=== PATIENT | male | born 1965 | race Caucasian/White ===

== ENCOUNTER 2023-04-16 11:56 | Inpatient (IN) ==
[2023-04-16 12:44] LABS: Basophils # (auto) 0.03 K/uL (0-0.2); Basophils % (auto) 0.4 %; Eosinophils # (auto) 0.16 K/uL (0-0.50); Eosinophils % (auto) 1.9 %; Hematocrit (blood only) 46.6 % (42.0-52.0); Hemoglobin 15.3 g/dl (14.0-18.0); Immature Granulocytes # (auto) 0.01 K/uL (0.01-0.20); Immature Granulocytes % (auto) 0.1 %; Lymphocytes # (auto) 2.05 K/uL (1.2-3.4); Lymphocytes % (auto) 24.8 %; Mean Corpuscular Hemoglobin 24.4 pg (25.0-34.0); Mean Corpuscular Hgb Conc 32.8 g/dL (32.0-36.0); Mean Corpuscular Volume 74.2 fL (80.0-100.0); Mean Platelet Volume 9.9 fL (9.4-12.4); Monocytes # (auto) 0.52 K/uL (0.11-0.59); Monocytes % (auto) 6.3 %; Neutrophils # (auto) 5.48 K/uL (1.40-6.50); Neutrophils % (auto) 66.5 %; Platelet Count 404 K/uL (130-400); RDW Coefficient of Variation 16.6 % (11.5-14.5); RDW Standard Deviation 41.9 fL (36.4-46.3); Red Blood Count 6.28 M/uL (4.70-6.10); White Blood Count 8.25 K/ul (4.8-10.8)
[2023-04-16 13:00] LABS: Albumin Level 4.1 gm/dl (3.4-5.0); BUN Creatinine Ratio 15.4 (10-20); Bilirubin,Total 0.7 mg/dl (0.2-1.0); Creatinine Clr Calc Pharmacy 108.8 ml/min; Est GFR (African American) 106.5 ml/min; Est GFR (Non-African American) 91.9 ml/min; Globulin 4.1 gm/dl (2.5-4.0); Potassium 3.8 mmol/L (3.5-5.1); Total Protein 8.2 gm/dl (6.0-8.3)
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
[2023-04-16] MEDS ORDERED: OPTIRAY 320 500ml IV ONE (14:11)
--- NOTE | 2023-04-16 14:43 | CT Scan Report ---
ABDOMEN AND PELVIS CT WITH IV CONTRAST CT DOSE: 1413.12 mGy.cm HISTORY: generalized abd pain, dark stool TECHNIQUE: Multiaxial CT images of the abdomen and pelvis were performed following the use of intrave nous contrast. A dose lowering technique was utilized adhering to the principles of ALARA. COMPARISON STUDY: None. FINDINGS: There is a 4 mm nodule within the base the right lower lobe on image 10. Mild dependent cyndee nges seen within the lung bases posteriorly. No pneumoperitoneum. No pneumatosis. No suspicious lytic or blastic osseous lesions. The gallbladder, pancreas, spleen, adrenal glands, and right kidney are unremarkable. There is a 9 mm hypodense lesion within the lower pole the left kidney. This is technic ally too small to characterize but favors a cyst. The main portal vein is patent. Normal caliber abdo kim aorta. No pelvic free fluid. The prostate gland is mildly enlarged. Normal bladder. Focal area of irregular thickening within the proximal to mid sigmoid colon measuring approximately 7 cm in long th. This is consistent with a colonic mass. There is a small focus of soft tissue tumor/lymphadenopat hy extending superiorly from the sigmoid colon best seen image 232 measuring 16 mm. There is associat ed retroperitoneal lymphadenopathy with the dominant left pelvic lymph node measuring 2.3 x 1.8 cm. T here is a 2.9 cm ill-defined hypodense lesion within the left hepatic lobe on image 69 and a 2.2 cm i ll-defined hypodense lesion within the right hepatic lobe on image 76. These are highly suspicious fo r metastatic foci. Hypodensity adjacent to the falciform ligament may represent focal fat. Multiple s cattered soft tissue nodules within the omentum with the largest on the right measuring 2.7 cm. This is best seen on image 225 this consistent with metastatic disease. There is an irregular peritoneal d eposit anterior to the rectum on image 311 measuring 2.2 cm. This is also consistent with metastatic disease. Colonic diverticulosis. No evidence for acute diverticulitis. No evidence for bowel obstruct ion at this time. Normal appendix. IMPRESSION: 1. There is a 7 cm mass within the proximal to mid sigmoid colon with associated hepatic, retroperito allie, and omental/peritoneal metastatic disease as described above. 2. No evidence for a bowel obstruction. 3. An indeterminate 4 mm nodule within the right lower lobe. ACT 112: Negative or not required by law. Electronically signed by: Nicholas Mcdonough M.D. 04/16/2023 2:42 PM
[2023-04-16] MEDS ORDERED: PANTOprazole 80 MG in DEXTROSE 5% 100 ML IV ONE (16:11)
[2023-04-16] MEDS ORDERED: FAMOTIDINE 20MG IV PUSH 20 MG/5 ML SYR IV STA (16:11)
[2023-04-16] MEDS ORDERED: PANTOPRAZOLE BOLUS/DRIP 1 EACH IV STA (16:11)
[2023-04-16] MEDS ORDERED: SODIUM CHLORIDE 0.9% 1000ML 500 ML IV ONE (16:11)
[2023-04-16] MEDS ORDERED: SODIUM CHLORIDE 0.9% 1000ML 1,000 ML IV SCH (16:15)
[2023-04-16] MEDS ORDERED: PANTOprazole 40 MG in DEXTROSE 5% 100 ML IV SCH (16:30)
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
[2023-04-16 18:18] LABS: Ferritin 48.2 ng/ml (8-388)
[2023-04-16] MEDS ORDERED: POLYETHYLENE (MIRALAX) 17 GM PACK PO PRN (19:07)
[2023-04-16] MEDS ORDERED: LACTATED RINGER'S 1,000 ML IV SCH (19:07)
[2023-04-16] MEDS ORDERED: ALUMINUM/MAGNESIUM SUSP 30 ML UDC PO PRN (19:07)
[2023-04-16] MEDS ORDERED: MAGNESIUM HYDROXIDE SUSP 30 ML UDC PO PRN (19:07)
[2023-04-16] MEDS ORDERED: ONDANSETRON INJ 2 MG/ML 2 ML VIAL IV PRN (19:07)
[2023-04-16] MEDS ORDERED: ACETAMINOPHEN 325 MG TAB PO PRN (19:07)
[2023-04-16] MEDS: HYDROCODONE/ACETAMINOPHEN 7.5/325MG TAB PO SCH (19:37)
[2023-04-16] MEDS: DOCUSATE SODIUM/SENNA 50/8.6MG TAB PO SCH (21:00)
[2023-04-16] MEDS: PANTOprazole 40 MG in SYRINGE 0 ML IV SCH (21:00)
[2023-04-17] MEDS: HYDROCODONE/ACETAMINOPHEN 7.5/325MG TAB PO SCH ×3 (05:36→21:05)
[2023-04-17 06:25] LABS: Appearance Urine Clear (Clear); Bilirubin Urine Negative (Negative); Blood Urine Negative (Negative); Color Urine Yellow; Glucose Urine UA Negative (Negative); Ketones Urine Negative (Negative); Leukocyte Esterase Urine Negative (Negative); Nitrite Urine Negative (Negative); Protein Urine Negative (Negative); Specific Gravity Urine 1.042 (1.000-1.030); Urobilinogen Urine Negative (Negative)
--- NOTE | 2023-04-17 08:40 | Electrocardiogram Report ---
Test Reason : Blood Pressure : / mmHG Vent. Rate : 063 BPM Atrial Rate : 063 BPM P-R Int : 184 ms QRS Dur : 084 ms QT Int : 440 ms P-R-T Axes : 054 -23 039 degrees QTc Int : 450 ms Normal sinus rhythm Normal ECG No previous ECGs available Confirmed by Da Stone ([id number]) on 04/17/2023 8:40:20 AM Referred By: REFERRED SELF Confirmed By:Da Stone
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
[2023-04-17] MEDS: PANTOprazole 40 MG in SYRINGE 0 ML IV SCH ×2 (08:49→20:03)
[2023-04-17] MEDS: amLODIPine BESYLATE 5 MG TAB PO SCH (08:50)
[2023-04-17] MEDS: LISINOPRIL/HCTZ 20/12.5MG 1 TAB TAB PO SCH (08:50)
[2023-04-17] MEDS: ATENOLOL 50 MG TABLET PO SCH (08:50)
[2023-04-17] MEDS: SIMVASTATIN 20 MG TAB PO SCH (08:50)
[2023-04-17] MEDS ORDERED: ALPRAZolam 0.5 MG TABLET PO SCH (09:00)
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
[2023-04-17 09:54] LABS: Basophils # (auto) 0.03 K/uL (0-0.2); Basophils % (auto) 0.5 %; Eosinophils # (auto) 0.16 K/uL (0-0.50); Eosinophils % (auto) 2.7 %; Hematocrit (blood only) 43.2 % (42.0-52.0); Immature Granulocytes # (auto) 0.01 K/uL (0.01-0.20); Immature Granulocytes % (auto) 0.2 %; Lymphocytes # (auto) 2.02 K/uL (1.2-3.4); Mean Corpuscular Hemoglobin 24.3 pg (25.0-34.0); Mean Corpuscular Hgb Conc 32.4 g/dL (32.0-36.0); Mean Corpuscular Volume 74.9 fL (80.0-100.0); Mean Platelet Volume 10.1 fL (9.4-12.4); Monocytes # (auto) 0.39 K/uL (0.11-0.59); Monocytes % (auto) 6.6 %; Neutrophils # (auto) 3.33 K/uL (1.40-6.50); Platelet Count 298 K/uL (130-400); RDW Coefficient of Variation 16.1 % (11.5-14.5); RDW Standard Deviation 42.3 fL (36.4-46.3); Red Blood Count 5.77 M/uL (4.70-6.10); White Blood Count 5.94 K/ul (4.8-10.8)
[2023-04-17 10:08] LABS: Albumin Level 3.6 gm/dl (3.4-5.0); Calcium 9.3 mg/dl (8.6-10.3); Magnesium 2.1 mg/dl (1.7-2.4)
[2023-04-17 10:14] LABS: BUN Creatinine Ratio 16.3 (10-20); Creatinine Clr Calc Pharmacy 123.6 ml/min; Est GFR (African American) 113.3 ml/min; Est GFR (Non-African American) 97.8 ml/min; Globulin 3.6 gm/dl (2.5-4.0); Total Protein 7.2 gm/dl (6.0-8.3)
[2023-04-17 10:17] LABS: Estimated Average Glucose 126 mg/dl
[2023-04-17] MEDS ORDERED: LIDOCAINE 2% 2 ML VIAL/AMP(20MG/ML) INFIL ONE (12:01)
[2023-04-17] MEDS ORDERED: PROPOFOL IV EMULSION 10 MG/ML 20 ML VIAL IV ONE (12:01)
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
--- NOTE | 2023-04-17 13:05 | Anesthesiology Progress Note ---
Date of Service April 17, 2023 Anesthesia Post Procedure Vital Signs Vital Signs: Temp Pulse Pulse Resp BP Pulse Ox O2 Del Method 04/17/23 12:58 56 L 20 124/78 93 Room Air 04/17/23 12:43 55 L 18 97/63 L 93 Room Air 04/17/23 12:11 98.1 F 64 20 122/84 94 Room Air 04/17/23 02:05 97.9 F 68 18 127/83 95 Room Air 04/16/23 21:59 58 L 04/16/23 23:15 97.7 F 58 L 18 128/84 94 Room Air 04/16/23 19:24 62 04/16/23 19:30 97.7 F 58 L 20 131/85 96 Room Air 04/16/23 18:45 Room Air 04/16/23 15:25 66 18 99/79 L 94 Room Air Pain Intensity Abdomen: Pain Intensity: 6 Transfer of Care Handoff Completed per policy Notes Mental Status: alert / awake / arousable and participated in evaluation Patient Amnestic to Procedure: Yes Nausea / Vomiting: adequately controlled Pain: adequately controlled Airway Patency, RR, SpO2: stable & adequate BP & HR: stable & adequate Hydration State: stable & adequate Anesthetic Complications: no major complications apparent and Pt Satisfied with anesthetic care
[2023-04-17] MEDS ORDERED: OPTIRAY 320 100ml IV ONE (16:25)
--- NOTE | 2023-04-17 16:41 | CT Scan Report ---
CT chest diagnostic w con CLINICAL HISTORY: r/o metastatic colon cancer TECHNIQUE: Multidetector row helical CT of the chest was performed with intravenous contrast. Coronal and sagittal reformations were obtained. Automated dose lowering techniques and/or adjustment accord ing to patient size were utilized for this exam. CT DOSE: 941.86 mGy.cm Comparison: None available at the time of this dictation. FINDINGS: Lungs and pleura: There is a 6 mm nodule in the lingula (series 4 image 102). There is an ill-defined 5 mm nodule in the right lower lobe (image 139). Heart and pericardium: Heart size is normal. No pericardial effusion. Vessels: Moderate atherosclerotic changes in the aorta and coronary arteries. Mediastinum and manoj: Subcentimeter lymph nodes measure up to 9 mm in the subcarinal station. Chest wall and lower neck: There is a right axillary lymph node measuring 18 mm in diameter. There is also an 11 mm left lower cervical lymph node. Abdomen: For findings below the diaphragm, please refer to CT of the abdomen dated the same. Bones: Degenerative changes in the thoracic spine. No lytic or blastic lesions are seen to suggest [place] metastatic disease. IMPRESSION: 1. Right axillary lymphadenopathy is concerning for metastatic disease. There is also an enlarged le ft lower cervical node as well as a few small pulmonary nodules, metastatic disease cannot be exclude d. 2. Please see CT abdomen pelvis performed same day for findings below the diaphragm. ACT 112: Positive. There are findings on this exam that require communication between the performing entity and the patient following Patient Test Result Information Act ([place] Act 112) guidelines. Electronically signed by: Marciano Gutierres M.D. 04/17/2023 4:39 PM
[2023-04-17] MEDS: POLYETHYLENE (MIRALAX) 17 GM PACK PO SCH (16:45)
--- NOTE | 2023-04-17 16:57 | Communication Note ---
Date of Service: April 17, 2023 Pt is s/p flex sig 04/17/23, has sigmoid colon mass with concern for eventual obstruction. Initial CTAP suggestive of hepatic, retroperitoneal, and omental/peritoneal metastatic disease. Plan: - Chest CT w/ IV contrast to evaluate for metastatic disease - CEA level - Miralax 17 gm once daily in 8 oz liquid - Boost Breeze TID - Full liquids today and tomorrow - Clear liquids starting Thursday - Please make NPO midnight on Thursday (0001 on Thursday) - Colonoscopy on Thursday for colonic stent - If pt obstructs over the weekend please contact our on-call advanced endoscopist Dr. Rivera - Case discussed with hospitalist and GI attending - Lillie Granado PA-C
[2023-04-17] MEDS: DOCUSATE SODIUM/SENNA 50/8.6MG TAB PO SCH (20:03)
[2023-04-17] MEDS: ALPRAZolam 0.5 MG TABLET PO SCH (20:03)
[2023-04-18] MEDS: HYDROCODONE/ACETAMINOPHEN 7.5/325MG TAB PO SCH ×3 (05:00→21:59)
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
[2023-04-18] MEDS: amLODIPine BESYLATE 5 MG TAB PO SCH (09:42)
[2023-04-18] MEDS: SIMVASTATIN 20 MG TAB PO SCH (09:42)
[2023-04-18] MEDS: LISINOPRIL/HCTZ 20/12.5MG 1 TAB TAB PO SCH (09:43)
[2023-04-18] MEDS: PANTOprazole 40 MG in SYRINGE 0 ML IV SCH ×2 (09:43→20:42)
[2023-04-18] MEDS: ATENOLOL 50 MG TABLET PO SCH (09:43)
[2023-04-18] MEDS: POLYETHYLENE (MIRALAX) 17 GM PACK PO SCH (09:44)
[2023-04-18] MEDS: ALPRAZolam 0.5 MG TABLET PO SCH ×3 (09:46→20:44)
--- NOTE | 2023-04-18 10:02 | Gastroenterology Progress Note ---
Date of Service April 18, 2023 Assessment & Plan (1) Colonic mass: Plan: Nothing planned over the weekend. For stent placement on Thursday Admission and Anticipated Discharge Date Admission Date: April 16, 2023 Subjective Asked by Philip DOAN to check on patient over weekend. No current problems. Results & Data Vital Signs (Past 12 Hours) Vital Signs Temp Pulse Resp BP Pulse Ox O2 Del Method 04/18/23 09:59 96 Room Air 04/18/23 09:30 96 H 04/18/23 09:06 36.4 C L 51 L 18 118/78 92 Room Air 04/18/23 07:39 Room Air 04/17/23 22:45 36.4 C L 55 L 18 105/70 93 Room Air
[2023-04-18] MEDS: HYDROmorphone INJ 0.5 MG/0.5 ML SYR IV PRN ×2 (15:27→19:52)
[2023-04-18] MEDS: DOCUSATE SODIUM/SENNA 50/8.6MG TAB PO SCH (20:42)
[2023-04-19] MEDS: HYDROmorphone INJ 0.5 MG/0.5 ML SYR IV PRN ×2 (02:17→19:16)
[2023-04-19] MEDS: HYDROCODONE/ACETAMINOPHEN 7.5/325MG TAB PO SCH ×3 (06:26→22:53)
[2023-04-19] MEDS: SIMVASTATIN 20 MG TAB PO SCH (08:38)
[2023-04-19] MEDS: LISINOPRIL/HCTZ 20/12.5MG 1 TAB TAB PO SCH (08:38)
[2023-04-19] MEDS: amLODIPine BESYLATE 5 MG TAB PO SCH (08:38)
[2023-04-19] MEDS: PANTOprazole 40 MG in SYRINGE 0 ML IV SCH ×2 (08:38→20:53)
[2023-04-19] MEDS: ATENOLOL 50 MG TABLET PO SCH (08:38)
[2023-04-19] MEDS: ALPRAZolam 0.5 MG TABLET PO SCH ×3 (08:39→20:53)
[2023-04-19] MEDS: POLYETHYLENE (MIRALAX) 17 GM PACK PO SCH (08:43)
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
[2023-04-19] MEDS: DOCUSATE SODIUM/SENNA 50/8.6MG TAB PO SCH (20:53)
[2023-04-20] MEDS: HYDROCODONE/ACETAMINOPHEN 7.5/325MG TAB PO SCH ×3 (05:27→23:18)
[2023-04-20 07:02] LABS: Hematocrit (blood only) 44.6 % (42.0-52.0); Hemoglobin 14.5 g/dl (14.0-18.0); Mean Corpuscular Hemoglobin 24.5 pg (25.0-34.0); Mean Corpuscular Hgb Conc 32.5 g/dL (32.0-36.0); Mean Corpuscular Volume 75.5 fL (80.0-100.0); Mean Platelet Volume 10.2 fL (9.4-12.4); Platelet Count 343 K/uL (130-400); RDW Standard Deviation 42.7 fL (36.4-46.3); Red Blood Count 5.91 M/uL (4.70-6.10); White Blood Count 6.49 K/ul (4.8-10.8)
[2023-04-20 07:17] LABS: BUN Creatinine Ratio 10.3 (10-20); Calcium 9.5 mg/dl (8.6-10.3); Est GFR (African American) 109.5 ml/min; Est GFR (Non-African American) 94.5 ml/min; Potassium 3.8 mmol/L (3.5-5.1)
[2023-04-20] MEDS: ALPRAZolam 0.5 MG TABLET PO SCH ×3 (08:10→19:47)
[2023-04-20] MEDS: ATENOLOL 50 MG TABLET PO SCH (08:11)
[2023-04-20] MEDS: SIMVASTATIN 20 MG TAB PO SCH (08:11)
[2023-04-20] MEDS: LISINOPRIL/HCTZ 20/12.5MG 1 TAB TAB PO SCH (08:11)
[2023-04-20] MEDS: amLODIPine BESYLATE 5 MG TAB PO SCH (08:11)
[2023-04-20] MEDS: PANTOprazole 40 MG in SYRINGE 0 ML IV SCH ×2 (08:11→19:47)
[2023-04-20] MEDS: HYDROmorphone INJ 0.5 MG/0.5 ML SYR IV PRN ×3 (08:15→19:47)
[2023-04-20] MEDS: POLYETHYLENE (MIRALAX) 17 GM PACK PO SCH (10:06)
--- NOTE | 2023-04-20 11:37 | Gastroenterology Progress Note ---
Date of Service April 20, 2023 Assessment & Plan (1) Colonic mass: Plan: Pt is a 57 years old male with bowel habit changes, constipation, dark stools, found to have 7cm sigmoid mass on CT chest/abd/pelvis suggestive of metastatic disease. Flex sig on 04/17 confirmed sigmoid mass concerning for obstruction. CEA elevated 88 - IVF support - Keep NPO - Colonoscopy with colonic stent placement by Dr. Rivera today. Will order tap water enema for prep prior to procedure - Further recs after colonic stent performed Admission and Anticipated Discharge Date Admission Date: April 16, 2023 Supervising Physician Co-Signing Physician Notes PE as documented No prior screening colonoscopy Recent flex sig done last week Concerns for sigmoid mass with mets Colonic stent today. Agree with further plan of care as documented. Subjective Patient reports that he last passed liquid like stool on Thursday. Is not passing much flatus. Abdomen feels less uncomfortable today compared to last night. Denies any nausea or vomiting. Review of Systems Review of Systems: All systems reviewed & are unremarkable except as noted in HPI & below Physical Exam Constitutional: WD/WN, vitals as above well groomed, cooperative and comfortable Eyes: PERRL, conjunctivae normal, anicteric sclerae ENMT: external ear and nose normal, oropharynx normal Respiratory: normal respiratory effort, lungs clear to auscultation Cardiovascular: RRR, no murmur, no edema Gastrointestinal (Abdomen): normal bowel sounds, soft, nontender, no hepatosplenomegaly (mild distension noted ) Skin: no rashes, warm and dry no jaundice Psychiatric: A+Ox3, euthymic affect Lymphatic: no lymphedema Results & Data Vital Signs (Past 12 Hours) Vital Signs Temp Pulse Pulse Resp BP Pulse Ox O2 Del Method 04/20/23 08:30 Room Air 04/20/23 07:42 36.5 C 65 18 134/85 95 Room Air 04/19/23 23:39 36.8 C 64 20 123/65 94 Room Air
[2023-04-20] MEDS ORDERED: PROPOFOL IV EMULSION 10 MG/ML 20 ML VIAL IV ONE ×2 (15:02→16:20)
[2023-04-20] MEDS ORDERED: LIDOCAINE 2% 2 ML VIAL/AMP(20MG/ML) INFIL ONE (15:02)
[2023-04-20] MEDS ORDERED: MIDAZOLAM HCL 1 MG/ML 2ML VIAL ONE (15:02)
--- NOTE | 2023-04-20 15:08 | History & Physical Bridge Note ---
Date of Service April 20, 2023 History & Physical Bridge Note I have examined the patient, reviewed the History & Physical and in the interval since the performance of the History & Physical I have noted the following changes of clinical significance: no changes noted colonoscopy with stent placement Patient was explained in detail regarding risks, benefits, limitations and alternatives of the above endoscopic procedure. Risks of intravenous sedation used for procedure were also explained. Risks include, but not limited to perforation, bleeding, infection, respiratory distress, cardiac arrest and . Patient is also aware about the possibility of missed lesion. Patient's questions were answered. The patient verbalized understanding the information and agreed to undergo the procedure.
[2023-04-20] MEDS ORDERED: ePHEDrine sulfate 50 MG/ML AMP IV PRN (15:26)
[2023-04-20] MEDS ORDERED: ATROPINE SULFATE 0.1 MG/ML 10ML SYR IV PRN (15:26)
[2023-04-20] MEDS ORDERED: ONDANSETRON INJ 2 MG/ML 2 ML VIAL IV PRN (15:26)
[2023-04-20] MEDS ORDERED: fentaNYL citrate PF 100 MCG/2 ML VIAL IV PRN (15:26)
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
[2023-04-20] MEDS ORDERED: ePHEDrine sulfate 50 MG/ML AMP ONE (16:19)
--- NOTE | 2023-04-20 16:30 | Operative Report ---
Post Operative Report Pre & Post Diagnosis Operation Date: 04/20/23 11:10 Pre-Op Diagnosis: ABD PAIN, MELENA I identified the patient and participated in the time-out.: Yes Procedure Operation Date: 04/20/23 11:10 <No data on this case meets the specified criteria> Surgeon Wang Rivera MD Plc Technician None Estimated Blood Loss 0 Findings See Below (Colonic mass with obstruction, stent placed) Specimens None Description of Procedure Colonoscopy I attest to the content of the Intraoperative Record and any orders documented therein. Any exceptions are noted below.
--- NOTE | 2023-04-20 16:41 | GI REPORT ---
Patient Name: Mendez Costa Procedure Date: 04/20/2023 4:06 PM Date of : 1965 Admit Type: Inpatient Age: 57 Gender: Male Attending MD: Wang Rivera MD, Procedure: Flexible Sigmoidoscopy Providers: Wang Rivera MD Referring MD: Rush Cat MD, Connie Rodgers Do Indications: For therapy of colonic obstruction Medicines: Propofol per Anesthesia Complications: No immediate complications. Estimated Blood Loss: Estimated blood loss: none. Procedure: Pre-Anesthesia Assessment: - Prior to the procedure, a History and Physical was performed, and patient medications, allergies and sensitivities were reviewed. The patient's tolerance of previous anesthesia was reviewed. - The risks and benefits of the procedure and the sedation options and risks were discussed with the patient. All questions were answered and informed consent was obtained. - Patient identification and proposed procedure were verified prior to the procedure by the physician and the nurse. The procedure was verified in the procedure room. - Pre-procedure physical examination revealed no contraindications to sedation. After obtaining informed consent, the endoscope was passed under direct vision. Throughout the procedure, the patient's blood pressure, pulse, and oxygen saturations were monitored continuously. The Endoscope was introduced through the anus and advanced to the sigmoid colon. After obtaining informed consent, the endoscope was passed under direct vision. Throughout the procedure, the patient's blood pressure, pulse, and oxygen saturations were monitored continuously.The flexible sigmoidoscopy was accomplished without difficulty. The patient tolerated the procedure well. Findings: The perianal and digital rectal examinations were normal. A malignant-appearing, intrinsic severe stenosis was found in the sigmoid colon and was non-traversed. This was stented with a 25 mm x 10 cm Cook stent with a 35 mm flare under fluoroscopic guidance using a 0.025 inch angled guidewire and balloon catheter with contrast injection to evaluate the length of the stenosis. A TTS dilator was passed through the scope. Dilation with a 10-11-12 mm colonic balloon dilator was performed under fluoroscopic guidance. Area was tattooed with an injection of 1 mL of Spot (carbon black). I personally interpretted the fluoroscopic images. A gush of stool seen. There was a small polyp near the mass. Impression: - Obstructing mass in the sigmoid colon. Colonic stent was placed. Tattooed. Recommendation: - [facility] for [facility] care. - Clear liquid diet for 1 day, then advance as tolerated to full liquid diet for 1 day then follow stent diet. - Daily Miralax. Wang Rivera MD 04/20/2023 4:40:45 PM This report has been signed electronically. Note Initiated On: 04/20/2023 4:06 PM Number of Addenda: 0 I attest to the content of the Intraoperative Record and orders documented therein, exceptions below {[id number]}
[2023-04-20] MEDS ORDERED: ENDOSCOPIC MARKER 5 ML SYR TOP ONE (16:48)
--- NOTE | 2023-04-20 16:58 | Fluoroscopy Report ---
FL KUB CLINICAL HISTORY: COLONIC STENT COMPARISON STUDY: 04/16/2023 FLUOROSCOPY TIME: 1 minute 32 seconds FLUOROSCOPY IMAGES: 10 EXPOSURE DOSE: 78.98 mGy Air Kerma FINDINGS: Endoscope is noted within the rectum. Retrograde injection of contrast demonstrates irregul ar narrowing of the sigmoid colon secondary to the known mucosal neoplasm. Subsequent images demonstr ate deployment of a colonic stent. Last images demonstrate interval removal of the guidewire and endo scope. IMPRESSION: Fluoroscopic assistance as above. ACT 112: Negative or not required by law. Electronically signed by: Gabino Dillon M.D. 04/20/2023 4:57 PM
--- NOTE | 2023-04-20 17:07 | Anesthesiology Progress Note ---
Date of Service April 20, 2023 Anesthesia Post Procedure Vital Signs Vital Signs: Temp Pulse Pulse Pulse Resp BP BP 04/20/23 16:59 69 25 H 101/68 04/20/23 16:50 64 25 H 90/72 L 04/20/23 16:42 36.9 C 61 15 90/57 L 04/20/23 14:48 36.5 C 66 20 102/55 L 04/20/23 11:23 36.7 C 53 L 18 106/70 04/20/23 08:30 04/20/23 07:42 36.5 C 65 18 134/85 04/19/23 23:39 36.8 C 64 20 123/65 04/19/23 20:00 36.9 C 74 18 129/78 Pulse Ox O2 Del Method O2 Flow Rate 04/20/23 16:59 94 Oxymask 2 04/20/23 16:50 98 Oxymask 5 04/20/23 16:42 95 Oxymask 5 04/20/23 14:48 96 Room Air 04/20/23 11:23 94 Room Air 04/20/23 08:30 Room Air 04/20/23 07:42 95 Room Air 04/19/23 23:39 94 Room Air 04/19/23 20:00 94 Room Air Pain Intensity Abdomen: Pain Intensity: 7 Back: Pain Intensity: 8 Transfer of Care Handoff Completed per policy Notes Mental Status: alert / awake / arousable Patient Amnestic to Procedure: Yes Nausea / Vomiting: adequately controlled Pain: adequately controlled Airway Patency, RR, SpO2: stable & adequate BP & HR: stable & adequate Hydration State: stable & adequate Anesthetic Complications: no major complications apparent
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
[2023-04-20] MEDS: DOCUSATE SODIUM/SENNA 50/8.6MG TAB PO SCH (19:50)
[2023-04-21] MEDS: HYDROmorphone INJ 0.5 MG/0.5 ML SYR IV PRN (03:37)
[2023-04-21] MEDS: HYDROCODONE/ACETAMINOPHEN 7.5/325MG TAB PO SCH ×2 (05:41→11:06)
[2023-04-21] MEDS: POLYETHYLENE (MIRALAX) 17 GM PACK PO SCH (08:12)
[2023-04-21] MEDS: ATENOLOL 50 MG TABLET PO SCH (08:12)
[2023-04-21] MEDS: LISINOPRIL/HCTZ 20/12.5MG 1 TAB TAB PO SCH (08:12)
[2023-04-21] MEDS: SIMVASTATIN 20 MG TAB PO SCH (08:13)
[2023-04-21] MEDS: PANTOprazole 40 MG in SYRINGE 0 ML IV SCH (08:13)
[2023-04-21] MEDS: ALPRAZolam 0.5 MG TABLET PO SCH (08:13)
[2023-04-21] MEDS: amLODIPine BESYLATE 5 MG TAB PO SCH (08:13)
--- NOTE | 2023-04-21 08:14 | Gastroenterology Progress Note ---
Date of Service April 21, 2023 Assessment & Plan (1) Colonic mass: Plan: Pt is a 57 year old male with bowel habit changes, constipation, dark stools, found to have 7cm sigmoid mass on CT chest/abd/pelvis suggestive of metastatic disease. Flex sig on 04/17 confirmed sigmoid mass concerning for obstruction. CEA elevated. Repeat flex sig yesterday 04/20/ with colonic stent placement by Dr. Rivera. Today pt passing large loose stools; feels somewhat better. Tony ating liquids. Abd soft, nontender. - IVF support - Clear liquid diet for 1 day, then advance as tolerated to full liquid diet for 1 day then follow stent diet (pt given paperwork for that). - Daily Miralax. - Pt will need f/u with oncology for further evaluation and treatment Thank you for allowing us to participate in the care of this patient. Please call with any acute changes, questions or concerns. Please see addendum below with additional recommendation from my supervising physician. Admission and Anticipated Discharge Date Admission Date: April 16, 2023 Supervising Physician Co-Signing Physician Notes S/p colonic stent yesterday. Agree with PE as documented. Agree with further plan of care as documented. Subjective Patient seen and examined, chart reviewed. Had colonic stent placed yesterday for obstructing mass. Feels somewhat improved today. Tolerating clear liquid diet. Passed a large loose stool this AM. No melena, hematochezia, h ematemesis, fever, chills, CP, SOB. Review of Systems Review of Systems: All systems reviewed & are unremarkable except as noted in HPI & below Physical Exam Constitutional: well developed, well nourished and comfortable; no acute distress Neck: trachea midline Respiratory: normal respiratory effort Cardiovascular: RRR Gastrointestinal (Abdomen): BS x 4 quads, soft, nontender, nondistended Skin: no rashes, warm and dry Neurologic: AAO x 3 Results & Data Vital Signs (Past 12 Hours) Vital Signs Temp Pulse Resp BP Pulse Ox O2 Del Method 04/21/23 07:31 36.7 C 63 16 108/70 93 Room Air 04/21/23 04:15 36.6 C 65 16 112/75 95 Room Air 04/20/23 21:46 36.7 C 70 16 94/60 L 96 Room Air Diagnostic Findings Flex sig 04/20/23: Impression: - Obstructing mass in the sigmoid colon. Colonic stent was placed. Tattooed.
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
--- NOTE | 2023-04-21 19:19 | GI REPORT ---
Patient Name: Mendez Costa Procedure Date: 04/17/2023 12:25 PM Date of : 1965 Admit Type: Inpatient Age: 57 Gender: Male Attending MD: Rush Cat MD, Procedure: Colonoscopy Providers: Rush Cat MD Referring MD: Connie Rodgers Do Indications: Abnormal CT of the GI tract Medicines: See the Anesthesia note for documentation of the administered medications Complications: No immediate complications. Estimated Blood Loss: Estimated blood loss: none. Procedure: Pre-Anesthesia Assessment: - ASA Grade Assessment: III - A patient with severe systemic disease. After I obtained informed consent, the scope was passed under direct vision. Throughout the procedure, the patient's blood pressure, pulse, and oxygen saturations were monitored continuously. The Colonoscope was introduced through the anus with the intention of advancing to the cecum. The scope was advanced to the sigmoid colon before the procedure was aborted. Medications were given. The colonoscopy was performed without difficulty. The patient tolerated the procedure well. The quality of the bowel preparation was adequate. Findings: The perianal and digital rectal examinations were normal. There was a large amount of solid stool in the rectum. There were multiple polyps in the rectum and sigmoid colon that were not removed. There was an obstructing circumferential lesion at 30 cm that could not be traversed with a pediatric colonoscope. This was biopsied. Impression: Obstructing sigmoid colon mass. Recommendation: - Discharge patient to floor. Follow up pathology results. Complete staging. Plan for stent. Rush Cat M.D. Rush Cat MD 04/21/2023 7:19:21 PM This report has been signed electronically. Note Initiated On: 04/17/2023 12:25 PM Number of Addenda: 0 I attest to the content of the Intraoperative Record and orders documented therein, exceptions below {[id number]}
== END 2023-04-21 11:22 | disposition home or self-care (01) | DRG 374 ==
LOC: ED 11:56 → SUATTDRO 17:05 → 2N 17:05 → 3W 04-20 17:53

== ENCOUNTER 2024-10-24 11:34 | Inpatient (IN) ==
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
[2024-10-24 12:41] LABS: Base Excess VBG -0.5 mEq/L; HCO3 VBG 24 mmol/L; Oxygen Saturation VBG 74.8 %; PCO2 VBG 38 mmHg (38-50); PO2 VBG 45 mmHg; pH VBG 7.41 (7.36-7.41)
--- NOTE | 2024-10-24 12:42 | XRay Report ---
XR chest 1V portable HISTORY: 59 years-old Male Dyspnea acute shortness of breath COMPARISON: Chest CT 07/22/2023 TECHNIQUE: AP view of the chest FINDINGS: Right IJ Jpkhrj-v-Rejz catheter appears to be in satisfactory positioning. Pulmonary vascular congest ion. Interstitial coarsening is most pronounced throughout the right lung. Peripheral predominant air space opacities, right greater than left. Trace pleural effusions. No pneumothorax. Bones appear jeremias sly intact. IMPRESSION: 1. Right greater than left mixed interstitial and alveolar opacities, likely infectious or inflammato ry. 2. Pulmonary vascular congestion with trace pleural effusions. ACT 112: Negative or not required by law. The above report was generated using voice recognition software. It may contain grammatical, syntax o r spelling errors. Electronically signed by: Gabino Dillon M.D. 10/24/2024 12:40 PM
[2024-10-24 13:04] LABS: Albumin Globulin Ratio 0.7 (0.9-2); Bilirubin,Total 1.1 mg/dl (0.2-1.0); Calcium 8.4 mg/dl (8.6-10.3); Creatinine Clr Calc Pharmacy 150.1 ml/min; Globulin 4.6 gm/dl (2.5-4.0); Magnesium 1.7 mg/dl (1.7-2.4); Potassium 3.6 mmol/L (3.5-5.1); Total Protein 7.6 gm/dl (6.0-8.3)
[2024-10-24 13:10] LABS: Troponin I High Sensitivity 8.1 pg/ml (0-20)
[2024-10-24 13:13] LABS: Anisocytosis Present; Basophils # (auto) 0.01 K/uL (0.00-0.20); Basophils % (auto) 0.3 %; Eosinophils # (auto) 0.02 K/uL (0.00-0.50); Eosinophils % (auto) 0.5 %; Hematocrit (blood only) 25.1 % (42.0-52.0); Hemoglobin 7.9 g/dl (14.0-18.0); INR 1.2 (0.9-1.1); Immature Granulocytes # (auto) 0.01 K/uL (0.01-0.20); Immature Granulocytes % (auto) 0.3 %; Lymphocytes # (auto) 0.78 K/uL (1.20-3.40); Mean Corpuscular Hemoglobin 23.2 pg (25.0-34.0); Mean Corpuscular Hgb Conc 31.5 g/dL (32.0-36.0); Mean Corpuscular Volume 73.6 fL (80.0-100.0); Microcytosis Present; Monocytes % (auto) 5.4 %; Neutrophils % (auto) 72.5 %; Ovalocytes 1+; Partial Thromboplastin Ratio 1.9; Partial Thromboplastin Time 51 Seconds (21-31); Platelet Count 127 K/uL (130-400); Polychromasia 1+; Prothrombin Time 12.4 Seconds (9.0-12.0); RDW Coefficient of Variation 23.1 % (11.5-14.5); RDW Standard Deviation 57.7 fL (36.4-46.3); Red Blood Count 3.41 M/uL (4.70-6.10); Tear Drop Cells 2+; White Blood Count 3.72 K/ul (4.8-10.8)
[2024-10-24 13:25] LABS: Adenovirus PCR Not Detected (NotDetected); Bordetella parapertussis PCR Not Detected (NotDetected); Bordetella pertussis PCR Not Detected (NotDetected); Chlamydia pneumoniae PCR Not Detected (NotDetected); Coronavirus 229E PCR Not Detected (NotDetected); Coronavirus CoV-2 (COVID19)PCR Not Detected (NotDetected); Coronavirus HKU1 PCR Not Detected (NotDetected); Coronavirus NL63 PCR Not Detected (NotDetected); Coronavirus OC43PCR Not Detected (NotDetected); Human Metapneumovirus PCR Not Detected (NotDetected); Influenza A PCR Not Detected (NotDetected); Influenza B PCR Not Detected (NotDetected); Mycoplasma pneumoniae PCR Not Detected (NotDetected); Parainfluenza Virus 1 PCR Not Detected (NotDetected); Parainfluenza Virus 2 PCR Not Detected (NotDetected); Parainfluenza Virus 3 PCR Not Detected (NotDetected); Parainfluenza Virus 4 PCR Not Detected (NotDetected); Respiratory Syncytial VirusPCR Not Detected (NotDetected); Rhinovirus/Enterovirus PCR Not Detected (NotDetected)
[2024-10-24] MEDS: OPTIRAY 320 125ml IV ONE (13:45)
[2024-10-24 13:58] LABS: Appearance Urine Slightly Cloudy (Clear); Bilirubin Urine Negative (Negative); Blood Urine Negative (Negative); Glucose Urine UA Negative (Negative); Ketones Urine Negative (Negative); Leukocyte Esterase Urine Negative (Negative); Nitrite Urine Negative (Negative); Protein Urine 1+ (Negative); Specific Gravity Urine >= 1.030 (1.000-1.030); Urobilinogen Urine Negative (Negative)
[2024-10-24 14:04] LABS: Color Urine Dark Yellow
[2024-10-24 14:07] LABS: Epithelial Cell Urine 0-2 /hpf (0-2); RBC Urine 0-2 /hpf (0-2); WBC Urine 0-5 /hpf (0-5)
[2024-10-24 14:08] LABS: Bacteria Urine None Seen (None Seen); Mucus Urine Present (None Prsent)
[2024-10-24] MEDS ORDERED: CEFEPIME 2,000 MG in SYRINGE 7.5 ML IV STA (14:24)
--- NOTE | 2024-10-24 14:38 | CT Scan Report ---
CT angio chest PE protocol CT DOSE: 745.41 mGy.cm HISTORY: 59 years-old Male with PE. Acute shortness of breath TECHNIQUE: Multiple CTA images of the chest were obtained after the intravenous administration of 120 ml Optiray. Coronal and sagittal MIPS were obtained from the axial data set and were submitted for review. All measurements were obtained according to NASCET criteria. A dose lowering technique was u tilized adhering to the principles of ALARA. COMPARISON: 07/22/2023 FINDINGS: CTA: Heart is upper limits of normal in size. Right IJ Nrnvlo-o-Tgbk catheter. No pericardial effusion. Mo derate coronary artery calcifications. Unremarkable thoracic aorta. Mild dilation of the main pulmona ry artery measuring 3.2 cm suggestive of pulmonary arterial hypertension. Bilateral segmental and sub segmental pulmonary emboli are most pronounced in the lower lobes. No central pulmonary emboli. Mild straightening of the intraventricular septum. CT CHEST: Unremarkable thyroid. Pathologically enlarged lymph nodes include prevascular 1.3 cm lymph node on im age 145. Subcarinal lymph nodes measure up to 1.5 cm. Right hilar lymphadenopathy measures up to 2.3 x 1.7 cm. Subcentimeter supraclavicular lymph nodes. Small layering pleural effusions. Irregular bilateral solid pulmonary nodules include a 1.3 cm nodule right upper lobe on image 150 series 4. Irregular groundglass and nodular consolidative subpleural o pacities are noted with mild central cavitation including a 2.1 cm lesion of the right upper lobe on image 133. Fissural and tree-in-bud micronodules are noted within a bibasilar predominant distributio n. These findings are all new from prior. Splenomegaly. Pathologic vy hepatis lymphadenopathy. 3.6 cm right adrenal gland lesion. Nonspecifi c gallbladder wall thickening. No acute fracture or destructive bone lesion. IMPRESSION: 1. Bilateral segmental and subsegmental pulmonary emboli with evidence of right heart strain. 2. Small pleural effusions with dependent subpleural predominant consolidative opacities suggestive o f pneumonia versus pulmonary infarct(s). 3. Bilateral solid pulmonary nodules suggestive of pulmonary metastasis. 4. Additional subpleural and irregular peripheral predominant nodular consolidative foci are seen wit h mild central cavitation. Differential considerations include additional metastatic foci, cavitary p neumonia versus septic emboli. 5. Subpleural and tree-in-bud nodules may represent an infectious or inflammatory bronchiolitis versu s lymphangitic carcinomatosis. 6. Pathologic mediastinal, hilar and upper abdominal lymphadenopathy. 7. Right adrenal metastasis. 8. Splenomegaly is new from prior. ACT 112: Negative or not required by law. The above report was generated using voice recognition software. It may contain grammatical, syntax o r spelling errors. Electronically signed by: Gabino Dillon M.D. 10/24/2024 2:37 PM
[2024-10-24] MEDS: CEFEPIME 2000MG 2,000 MG/20 ML SYR IV STA (14:48)
[2024-10-24] MEDS ORDERED: Heparin IV Adult Wt-Based Low-Dose *NO* INITIAL Bolus Protocol IV STA (15:14)
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
--- NOTE | 2024-10-24 15:23 | Electrocardiogram Report ---
Test Reason : Blood Pressure : */* mmHG Vent. Rate : 90 BPM Atrial Rate : 90 BPM P-R Int : 158 ms QRS Dur : 80 ms QT Int : 374 ms P-R-T Axes : 78 -2 64 degrees QTcB Int : 457 ms Sinus rhythm with Premature atrial complexes Otherwise normal ECG When compared with ECG of 16-Apr-2023 17:37, Premature atrial complexes are now Present Confirmed by Da Stone ([id number]) on 10/24/2024 3:23:37 PM Referred By: Confirmed By: Da Stone
[2024-10-24] MEDS: HEPARIN SODIUM/DEXTROSE 25,000 UNITS/500 ML BAG IV SCH (15:51)
[2024-10-24] MEDS: oxyCODONE HCL IR 5 MG TAB (IMMEDIATE RELEASE) PO STA (16:12)
[2024-10-24] MEDS ORDERED: MAGNESIUM HYDROXIDE SUSP 30 ML UDC PO PRN (18:53)
[2024-10-24] MEDS ORDERED: ONDANSETRON INJ 2 MG/ML 2 ML VIAL IV PRN (18:53)
[2024-10-24] MEDS ORDERED: POLYETHYLENE (MIRALAX) 17 GM PACK PO PRN (18:53)
[2024-10-24 20:19] LABS: Hematocrit (blood only) 26.3 % (42.0-52.0); Hemoglobin 8.2 g/dl (14.0-18.0); Mean Corpuscular Hgb Conc 31.2 g/dL (32.0-36.0); Mean Corpuscular Volume 73.9 fL (80.0-100.0); Platelet Count 137 K/uL (130-400); RDW Coefficient of Variation 23.2 % (11.5-14.5); RDW Standard Deviation 58.4 fL (36.4-46.3); Red Blood Count 3.56 M/uL (4.70-6.10); White Blood Count 3.24 K/ul (4.8-10.8)
[2024-10-24] MEDS: ADVANCED PROBIOTIC 625 MG CAPSULE PO SCH (21:03)
[2024-10-24] MEDS: CEFEPIME 2000MG 2,000 MG/20 ML SYR IV SCH (21:03)
[2024-10-24] MEDS: HYDROCODONE/ACETAMINOPHEN 7.5/325MG TAB PO PRN (21:09)
[2024-10-24 23:19] LABS: ANTI-Xa, UFH(UnfractionatedHep < 0.10 IU/ml (0.3-0.7)
--- NOTE | 2024-10-25 00:07 | Ultrasound Report ---
Exam(s): US VENOUS BILATERAL LOWER EXTREMITIES EXAM: US Duplex Bilateral Lower Extremities Veins CLINICAL HISTORY: R/o DVT. TECHNIQUE: Real-time duplex ultrasound scan of the bilateral lower extremity veins integrating B-mode two-dimensional vascular structure, Doppler spectral analysis, color flow Doppler imaging and compression. COMPARISON: No relevant prior studies available. FINDINGS: Right deep veins: No DVT in the right common femoral, femoral, proximal deep femoral or popliteal veins. The veins demonstrate normal color flow, are normally compressible, with normal phasic flow and/or augmentation response. The interrogated calf veins are patent. Right superficial veins: No thrombus in the saphenofemoral junction. Left deep veins: No DVT in the left common femoral, femoral, proximal deep femoral or popliteal veins. The veins demonstrate normal color flow, are normally compressible, with normal phasic flow and/or augmentation response. The interrogated calf veins are patent. Left superficial veins: No thrombus in the saphenofemoral junction. Soft tissues: No acute findings. No popliteal cyst. IMPRESSION: No evidence for deep vein thrombosis involving the bilateral lower extremities. Electronically signed by: Stephen Salomon MD 10/24/24 23:35 PM
[2024-10-25] MEDS: HEPARIN SOD (PORCINE) 1000 UNIT/ML IV ONE (00:51)
--- OUTSIDE RECORDS SUMMARY | 2024-10-25 00:52 | External Medical Summary | Summary of Care ---
Author Name Unknown Organization [facility] Address [address] [place] [address] Phone [phone] Care Team Providers Care Nuclear Equipment Test Engineer Name Role Phone Amanda BROWN MD, Buddy Britton Primary Care Provider [phone] Reason for Visit * Reason Onset Date Comments Test Results Imaging Study 10/20/2024 Encounter Details Date Type Department Care Team (Late st Contact Info) Description 10/20/2024 Telephone Hematology/Oncology [facility] Verna [place] [address] [facility] [place] [address] Yanet Berg MD 200 [facility] [place] [address] Test Results Imaging Study Allergies No known active allergiesdocumented as of this encounter (statuses as of 10/20/2024) Medications Dicyclomine HCl 10 MG Oral Capsule (Bentyl) Take 1 Capsule by mouth 4 times a day as needed for Pain. For abdominal pain 8 Capsule 11 3 Active Additional Information Patient not taking.Reported on 09/21/2024 Atenolol 50 MG Oral Tablet (Tenormin) Take 1 Tablet by mouth in the morning. 90 Tablet 3 4 Active Polyethylene Glycol 3350 17 GM/SCOOP Oral Powder (Miralax) Take 17 g by mouth in the morning. 255 g 6 4 Active Sennosides 8.6 MG Oral Tablet (Senokot) Take 1 Tablet by mouth in the morning and 1 Tablet before bedtime. 60 Tablet 6 4 Active Fluticasone Propionate 50 MCG/ACT Nasal Suspension (Flonase) Administer 2 Sprays into each nostril in the morning. [place] hand to apply. 16 g 3 4 Active Additional Information Patient not taking.Reported on 09/21/2024 Clindamycin Phosphate 1 % External SolutionIndicati ons:Acneiform rash Apply topically to affected area 2 times a day. Apply to rash on face. 30 mL 4 Active Additional Information Patient not taking.Reported on 09/21/2024 Trifluridine-Tip iracil 15-6.14 MG Oral Tablet (Lonsurf)Indicat ions:Malignant neoplasm of sigmoid colon (HCC) Take 30 mg (2 tablets) by mouth in the morning and 30 mg (2 tablets) before bedtime. Take within 1 hour of meal. On days 1-5 and 8- of 28 day cycle. 40 Tablet 5 09/30/2024 2:59 PM EST 4 Active Trifluridine-Tip iracil 20-8.19 MG Oral Tablet (Lonsurf)Indicat ions:Malignant neoplasm of sigmoid colon (HCC) Take 40 mg (2 tablets) by mouth in the morning and 40 mg (2 tablets) before bedtime. Take within 1 hour of meal. On days 1-5 and - of 28 day cycle. 40 Tablet 5 09/30/2024 2:59 PM EST 4 Active Potassium Chloride ER 10 MEQ Oral Tablet Extended ReleaseIndicatio ns:Metastatic colon cancer to liver (HCC) TAKE 1 TABLET BY MOUTH IN THE MORNING 30 Tablet 4 Active Ondansetron HCl 8 MG Oral Tablet (Zofran)Indicati ons:Malignant neoplasm of sigmoid colon (HCC) Take 1 Tablet by mouth every 8 hours as needed for Nausea. 30 Tablet 2 4 Active oxyCODONE HCl 5 MG Oral Tablet (Oxy IR)Indications:M alignant neoplasm of sigmoid colon (HCC) Take 1 Tablet by mouth every 6 hours as needed for Pain, Severe. 120 Tablet 4 Active ALPRAZolam 1 MG Oral Tablet (xaNAX) 1 tablet at bedtime as needed for sleep 30 Tablet 1 4 Active HYDROcodone-Acet aminophen 7.5-325 MG Oral TabletIndication s:Malignant neoplasm of sigmoid colon (HCC) Take 1 Tablet by mouth every 6 hours as needed for Pain, Severe. 120 Tablet 4 Active Amoxicillin-Pot Clavulanate 875-125 MG Oral Tablet (Augmentin)Indic ations:Malignant neoplasm of sigmoid colon (HCC) Take 1 Tablet by mouth in the morning and 1 Tablet before bedtime. 14 Tablet 4 Active documented as of this encounter (statuses as of 10/20/2024) Active Problems Problem Noted Date Diagnosed Date Encounter for antineoplastic chemotherapy 2023 Metastatic colon cancer to liver 11/25/2023 Protein-calorie malnutrition 08/07/2023 Malignant neoplasm of sigmoid colon 04/22/2023 Encounter for antineoplastic chemotherapy 2022 documented as of this encounter (statuses as of 10/20/2024) Immunizations Name Administration Dates Next Due Pneumococcal Conjugate Vaccine, 20-valent (Prevn ar20) 03/02/2024 documented as of this encounter Social History Tobacco Use Types Packs/Day Years Used Date Smoking Tobacco: Never Smokeless Tobacco: Never Alcohol Use Standard Drinks/Week Comments Not Currently 0 (1 standard drink = 0.6 oz pur e alcohol) PHQ-2 Answer Date Recorded PHQ Adult Total Score 0 08/07/2023 Utilities Answer Date Recorded Do you have trouble paying y our heating, water, or electric bill? (Adult - for ages 18 years and over) Not on file 05/03/2024 Is your family able to pay t he heat, water, or electric bill? (Household - for ages 0-17 years) Not on file 05/03/2024 Does your family have access to good internet? (Household - for ages 0-17 years) Not on file 05/03/2024 Social Connections Answer Date Recorded How often do you feel lonely or isolated from those around you? (Adult - for ages 18 years and over) Not on file 05/03/2024 Sex and Gender Information Value Date Recorded Sex Assigned at Not on file Legal Sex Male 9:48 AM EDT Gender Identity Not on file Sexual Orientation Not on file documented as of this encounter Miscellaneous Notes * Telephone Encounter - Diana Bo LPN - 10/20/2024 9:45 AM EST Left message on patient's voicemail, return phone number provided if patient has any questions. * Telephone Encounter - Diana Bo LPN - 10/20/2024 9:43 AM EST ----- Message from Yanet Berg MD sent at 10/19/2024 3:24 PM EST ----- Chest Xray No convincing evidence of pneumonia. Similar known metastatic disease. documented in this encounter Plan of Treatment Upcoming Encounters Date Type Department Care Team (Late st Contact Info) Description 10/27/2024 7:40 AM EST Office Visit Family Practice [facility] [place] [address] [place] [address] Buddy Patel III, MD [address] [facility] [place] [address] 10/31/2024 8:30 AM EST Imaging Radiology [address], [place] [address] [facility] [address] 11/02/2024 9:00 AM EST Laboratory Laboratory [facility] [place] [address] [place] [id number] Verna Lab [facility] [address] [place] [address] 11/02/2024 9:30 AM EST Pharmacy Pharmacy Hematology Oncology [place] [address] [place] [address] [facility], [facility] Hem/Onc [facility] [place] [address] 11/02/2024 9:30 AM EST Office Visit Hematology/Oncology [facility] [place] [address] [place] [phone] Yanet Berg MD [address] [place] [address] 11/02/2024 10:00 AM EST Hem/Onc Treatment Hematology/Oncology Treatment, [place] [address] [place] [phone] [place], Chair 4 Hem Onc Sc[place]ery [address] [place] [address] Health Maintenance Due Date Last Done Comments COVID-19 Vaccine (#1) 1968 HIV Screening 1978 Hepatitis C Screening 1981 DTap/Tdap Vaccines (1 - Tdap) 1982 Zoster Vaccines (1 of 2) 1982 Cologuard 2008 Fecal Occult Blood Test 2008 Sigmoidoscopy 2008 Influenza Vaccine (FLU shot) (#1) 2024 Depression Screening 08/07/2024 08/07/2023 Diabetes Screening 10/19/2027 10/19/2024, 1 12/05/2023, 09/21/2024, Additional history exists Lipid Panel 12/01/2028 12/01/2023, 04/22/2023 Colonoscopy 04/17/2033 04/17/2023 Colorectal Cancer Screening 04/17/2033 Pneumococcal Vaccine: Pediatrics (0 to 5 Years) and At-Risk Patients (6 to 64 Years) Completed 03/02/2024 HPV (Gardasil) Vaccine Aged Out No lo nger eligible based on patient's age to complete this topic Hepatitis B Vaccine Aged Out No longe r eligible based on patient's age to complete this topic MENINGOCOCCAL (MENACTRA/MENVEO) Aged Out No longer eligible based on patient's age to complete this topic documented as of this encounter Medical Devices Implanted Type Area Internet Systems Administrator Device Identifier Shelf Expiration Date Model / Serial / Lot Port Implant W/8f Poly Cath - [id number] Implanted:Qty : 1 on 05/06/2023 by Leonardo Castro DO at OR [facility] Right: Chest CR BARD : PERIPHERAL VASCULAR [id number] 07/16/2024 [id number] / / [id number] documented as of this encounter Care Teams Nuclear Equipment Test Engineer Relationship Specialty Start Date End Date Buddy Patel III, MD [address] [facility] [place] [address] PCP - General Family Medicine 04/29/23 documented as of this encounter
--- OUTSIDE RECORDS SUMMARY | 2024-10-25 00:52 | External Medical Summary | Summary of Care ---
Author Name Unknown Organization [facility] Address [address] [place] [address] Phone [phone] Care Team Providers Care Corporate Webmaster Name Role Phone Amanda BROWN MD, Buddy Britton Primary Care Provider [phone] Reason for Visit * Reason Comments Chemotherapy Day 1, cycle 3 zirab ev * Episode Based Medications (Routine) - Authorized Specialty Diagnoses / Procedures Referred By Contkim t Referred To Contact Diagnoses Malignant neoplasm of sigmoid colon (HCC) Encounter for antineoplastic chemotherapy Procedures [place] INJ., ZIRABEV, 10 MG Yanet Berg MD [address] [place] [address], [place] [address] Phone: tel: fax: Hematology/Oncology Treatment, [address] [address] Phone: tel: fax: Referral ID Status Reason Start Date Expiration Date V isits Requested Visits Authorized [id number] Authorized 08/03/2024 11/15/2099 99 99 Encounter Details Date Type Department Care Team (Latest Contact Info) Description 10/05/2024 8:30 AM EST Hem/Onc Treatment Hematology/Oncolog y Treatment, [address] [place] [address] Verna, Chair [address] Hem On[address] [place] [address] Malignant neoplasm of sigmoid colon (HCC)*; Encounter for antineoplastic chemotherapy Allergies No known active allergiesdocumented as of this encounter (statuses as of 10/23/2024) Medications Dicyclomine HCl 10 MG Oral Capsule [...] Sprays into each nostril in the morning. [place] hand to apply. 16 g 3 4 Active Additional Information Patient not taking.Reported on 09/21/2024 Clindamycin Phosphate 1 % External SolutionIndica tions:Acneifor m rash Apply topically to affected area 2 times a day. Apply to rash on face. 30 mL 4 Active Additional Information Patient not taking.Reported on 09/21/2024 Trifluridine-T ipiracil 15-6.14 MG Oral Tablet (Lonsurf)Indic ations:Maligna nt neoplasm of sigmoid colon (HCC) Take 30 mg (2 tablets) by mouth in the morning and 30 mg (2 tablets) before bedtime. Take within 1 hour of meal. On days 1-5 and - of 28 day cycle. 40 Tablet 5 09/30/2024 2:59 PM EST 4 Active Trifluridine-T ipiracil 20-8.19 MG Oral Tablet (Lonsurf)Indic ations:Maligna nt neoplasm of sigmoid colon (HCC) Take 40 mg (2 tablets) by mouth in the morning and 40 mg (2 tablets) before bedtime. Take within 1 hour of meal. On days 1-5 and - of 28 day cycle. 40 Tablet 5 09/30/2024 2:59 PM EST 4 Active Potassium Chloride ER 10 MEQ Oral Tablet Extended ReleaseIndicat ions:Metastati c colon cancer to liver (HCC) TAKE 1 TABLET BY MOUTH IN THE MORNING 30 Tablet 4 Active Ondansetron HCl 8 MG Oral Tablet (Zofran)Indica tions:Malignan t neoplasm of sigmoid colon (HCC) Take 1 Tablet by mouth every 8 hours as needed for Nausea. 30 Tablet 2 4 Active ALPRAZolam 1 MG Oral Tablet (xaNAX) 1 tablet at bedtime as needed for sleep 30 Tablet 1 4 10/03/20 24 Discontin ued(Refil l) HYDROcodone-Ac etaminophen 7.5-325 MG Oral TabletIndicati ons:Malignant neoplasm of sigmoid colon (HCC) Take 1 Tablet by mouth every 6 hours as needed for Pain, Severe. 120 Tablet 4 10/03/20 24 Discontin ued(Refil l) oxyCODONE HCl 5 MG Oral Tablet (Oxy IR)Indications :Malignant neoplasm of sigmoid colon (HCC) Take 1 Tablet by mouth every 6 hours as needed for Pain, Severe. 120 Tablet 4 10/03/20 24 Discontin ued(Refil l) documented as of this encounter (statuses as of 10/23/2024) Active Problems Problem Noted Date Diagnosed Date Encounter for antineoplastic chemotherapy 2023 Metastatic colon cancer to liver 11/25/2023 Protein-calorie malnutrition 08/07/2023 Malignant neoplasm of sigmoid colon 04/22/2023 Encounter for antineoplastic chemotherapy 2022 documented as of this encounter (statuses as of 10/23/2024) Immunizations Name Administration Dates Next Due Pneumococcal [...] on file documented as of this encounter Last Filed Vital Signs Vital Sign Reading Time Taken Comments Blood Pressure 120/78 10/05/2024 8:28 AM EST Pulse 84 10/05/2024 8:28 AM EST Temperature 36.4 C (97.5 F) 10/05/2024 8:28 AM ES T Respiratory Rate 16 10/05/2024 8:28 AM EST Oxygen Saturation 91% 10/05/2024 8:28 AM EST Inhaled Oxygen Concentration - - Weight 78.9 kg (174 lb) 10/05/2024 8:28 AM EST Height - - Body Mass Index 26.46 02/23/2024 9:11 AM EDT documented in this encounter Nursing Notes * Patricia Bullard, BIBI - 10/05/2024 10:52 AM EST Infusion complete. Patient tolerated well. VAD with + blood return, flushed with 10 ml NSS and Heparin 5 ml (100 units/ml). Vazquez needle removed intact. Dry dressing applied. Goals: Patient will remain free from injury. Possible barriers to meeting goals: patient remains free from harm/injury during treatment Stability of the patient: Moderately stable - low risk of patient condition declining or worsening Summary regarding today's goals: Met: Patient remained free from harm/injury during treatment. Patient left facility in stable condition. * Patricia Bullard, RN - 10/05/2024 8:38 AM EST Chair 9. Patient here for day 1, cycle 3 zirabev. VAD accessed without difficulty, + blood return, flushed with 10 ml NSS and dressing applied. Chemotherapy/Immunotherapy agents: ZIRABEV Consent for chemotherapy drug treatment complete, dated, and signed? yes, date - 08/03/24 Treatment lab parameters met? Yes Has treatment weight changed > than 10%? No Treatment preauthorized? Yes VITALS Filed Vitals: 10/05/24 0828 BP: 120/78 Pulse: 84 Resp: 16 Temp: 36.4 C (97.5 F) TempSrc: Tympanic SpO2: 91% Weight: 78.9 kg (174 lb) Urine protein: NEGATIVE Patient education completed for treatment? Yes Blood transfusion consent signed and complete? NA Return appointment scheduled? Yes Patient had provider visit today? No - If no provider visit must complete Pretreatment Assessment Functional Status: Functional status at today's visit: Fully active, able to carry on all pre-disease performance without restriction The drug name, dose, infusion volume, rate and route of administration, expiration date and time, appearance and physical integrity of the drug and rate set on the pump and sequencing of drug administration (as applicable) were verified by me and second sign-in RN. Patient was assessed for symptoms or adverse side effects during treatment. Patient Education: Patient instructed on use of heat and massage functions where applicable. Patient shown how to operate the heat function of the chair and to alert nursing staff if the chair feels too warm. Patient instructed on the risk of potential goodwin while using the heat function. PRE-TREATMENT ASSESSMENT: NEURO: denies symptoms CV/RESP: denies symptoms GI/: decreased appetite: drinking ensure OTHER: denies any additional symptoms PAIN: 0 Safety and Risk for Injury Patient will remain free from injury. Ensure appropriate safety devices are available. Provide and maintain safe environment. documented in this encounter Plan of Treatment Upcoming Encounters Date Type Department Care Team (Late st Contact Info) Description 10/27/2024 7:40 AM EST Office Visit [facility] Elmer Davidson [address] [place] [phone] Buddy Patel III, MD [address] [place] [address] 10/31/2024 8:30 AM EST Imaging Radiology [address] [facility], [place] [address] [facility] [place] [address] 11/02/2024 9:00 AM EST Laboratory Laboratory [facility] [place] [address] [place] [phone] [place], Lab Scenery [address] [place] [address] 11/02/2024 9:30 AM EST Pharmacy Pharmacy Hematology Oncology [facility] [address] [place] [address] [facility], [facility] Hem/Onc [address] [place] [address] 11/02/2024 9:30 AM EST Office Visit Hematology/Oncology [facility] [place] [address] [place] [phone] Yanet Berg MD [address] [place], [place] [address] 11/02/2024 10:00 AM EST Hem/Onc Treatment Hematology/Oncology Treatment, [place] [address] [place], [place] [phone] Verna, Chair 4 Hem Onc Scenery [address] [place], [place] [address] Health Maintenance Due Date Last Done Comments [...] this encounter Medical Devices Implanted Type Area Antique Clock Repairer Device Identifier Shelf Expiration Date Model / Serial / Lot Port Implant W/8f Poly Cath - [id number] Implanted:Qty : 1 on 05/06/2023 by Leonardo Castro DO at OR [facility] Right: Chest CR BARD : PERIPHERAL VASCULAR [id number] 07/16/2024 [id number] / / [id number] documented as of this encounter Visit Diagnoses Diagnosis Malignant neoplasm of sigmoid colon (HCC)- Primary Malignant neoplasm of sigmoid colon Encounter for antineoplastic chemotherapy documented in this encounter Administered Medications Inactive Administered Medications - up to 3 most recent administrations Medication Order MAR Action Action Date Dose Rate Site bevaCIZumab-bvzr (Zirabev) 400 mg in NSS 100 mL infusion 400 mg (rounded from 418 mg = 5 mg/kg 83.6 kg Treatment plan Recorded weight), IV Piggyback, ONCE, 1 dose, On Thu10/05/24 at 1015, Administer over 30 Minutes, Flush with NSS only!Indications:Malignant neoplasm of sigmoid colon (HCC),Encounter for antineoplastic chemotherapy Start Infusion 10/05/2024 9:32 AM EST 400 mg 210 mL/hr hEParin 100 UNIT/ML Lock Flush inj 500 Units 500 Units (5 mL), IV Lock, PRN Other, IV Flush, Starting on Thu10/05/24 at 0837, Until Thu10/05/24 at 1553, For 24 hours, Do not flush if lock, PICC, or central line not in place; IV infusing or unable to flush.Indications:Malignant neoplasm of sigmoid colon (HCC),Encounter for antineoplastic chemotherapy Given 10/05/2024 10:12 AM EST 500 Units NSS infusion Intravenous, at 50 mL/hr, PRN, Starting on Thu10/05/24 at 0945, Until Thu10/05/24 at 1553, Maintenance lineIndications:Malignant neoplasm of sigmoid colon (HCC),Encounter for antineoplastic chemotherapy Start Infusion 10/05/2024 8:47 AM EST 50 mL/hr sodium chloride 0.9 % flush central line 10 mL 10 mL, IV Push, PRN Other, IV Flush, Starting on Thu10/05/24 at 0837, Until Thu10/05/24 at 1553, For 24 hours, Do not flush if lock, PICC, or central line not in place; IV infusing or unable to flush.Indications:Malignant neoplasm of sigmoid colon (HCC),Encounter for antineoplastic chemotherapy Given 10/05/2024 10:12 AM EST 10 mL documented in this encounter Care Teams Corporate Webmaster Relationship Specialty Start Date End Date Buddy Patel III, MD [address] [facility] [place] [address] PCP - General Family Medicine 04/29/23 documented as of this encounter
--- OUTSIDE RECORDS SUMMARY | 2024-10-25 00:52 | External Medical Summary | Summary of Care ---
Author Name Unknown Organization [facility] Address [address] [place] [address] Phone [phone] Care Team Providers Care Multimedia Services Manager Name Role Phone Amanda BROWN MD, Buddy Britton Primary Care Provider [phone] Reason for Visit * Reason Comments Chemotherapy Zirabev IV Therapy IV hydration * Episode Based Medications (Routine) - Authorized Specialty Diagnoses / Procedures Referred By Yany t Referred To Contact Diagnoses Malignant neoplasm of sigmoid colon (HCC) Encounter for antineoplastic chemotherapy Procedures UT INJ., ZIRABEV, 10 MG Yanet Berg MD [address] [place] [address], [place] [address] Phone: tel: fax: Hematology/Oncology Treatment, [address] [address] Phone: tel: fax: Referral ID Status Reason Start Date Expiration Date V isits Requested Visits Authorized [id number] Authorized 08/03/2024 11/15/2099 99 99 Encounter Details Date Type Department Care Team (Latest Contact Info) Description 10/19/2024 9:00 AM EST Hem/Onc Treatment Hematology/Oncolog y Treatment, [address] [place] [address] [place], Chair 1 Hem Onc [address] [place] [address] Malignant neoplasm of sigmoid colon (HCC)*; Encounter for antineoplastic chemotherapy Allergies No known active allergiesdocumented as of this encounter (statuses as of 10/19/2024) Medications Dicyclomine HCl 10 MG Oral Capsule [...] Sprays into each nostril in the morning. [place] hand to apply. 16 g 3 4 Active Additional Information Patient not taking.Reported on 09/21/2024 Clindamycin Phosphate 1 % External SolutionIndicat ions:Acneiform rash Apply topically to affected area 2 times a day. Apply to rash on face. 30 mL 4 Active Additional Information Patient not taking.Reported on 09/21/2024 Trifluridine-Ti piracil 15-6.14 MG Oral Tablet (Lonsurf)Indica tions:Malignant neoplasm of sigmoid colon (HCC) Take 30 mg (2 tablets) by mouth in the morning and 30 mg (2 tablets) before bedtime. Take within 1 hour of meal. On days 1-5 and - of 28 day cycle. 40 Tablet 5 09/30/2024 2:59 PM EST 4 Active Trifluridine-Ti piracil 20-8.19 MG Oral Tablet (Lonsurf)Indica tions:Malignant neoplasm of sigmoid colon (HCC) Take 40 mg (2 tablets) by mouth in the morning and 40 mg (2 tablets) before bedtime. Take within 1 hour of meal. On days 1-5 and 8-12 of 28 day cycle. 40 Tablet 5 09/30/2024 2:59 PM EST 4 Active Potassium Chloride ER 10 MEQ Oral Tablet Extended ReleaseIndicati ons:Metastatic colon cancer to liver (HCC) TAKE 1 TABLET BY MOUTH IN THE MORNING 30 Tablet 4 Active Ondansetron HCl 8 MG Oral Tablet (Zofran)Indicat ions:Malignant neoplasm of sigmoid colon (HCC) Take 1 Tablet by mouth every 8 hours as needed for Nausea. 30 Tablet 2 4 Active oxyCODONE HCl 5 MG Oral Tablet (Oxy IR)Indications: Malignant neoplasm of sigmoid colon (HCC) Take 1 Tablet by mouth every 6 hours as needed for Pain, Severe. 120 Tablet 4 Active ALPRAZolam 1 MG Oral Tablet (xaNAX) 1 tablet at bedtime as needed for sleep 30 Tablet 1 4 Active HYDROcodone-Edmond taminophen 7.5-325 MG Oral TabletIndicatio ns:Malignant neoplasm of sigmoid colon (HCC) Take 1 Tablet by mouth every 6 hours as needed for Pain, Severe. 120 Tablet 4 Active documented as of this encounter (statuses as of 10/19/2024) Active Problems Problem Noted Date Diagnosed Date Encounter for antineoplastic chemotherapy 2023 Metastatic colon cancer to liver 11/25/2023 Protein-calorie malnutrition 08/07/2023 Malignant neoplasm of sigmoid colon 04/22/2023 Encounter for antineoplastic chemotherapy 2022 documented as of this encounter (statuses as of 10/19/2024) Immunizations Name Administration Dates Next Due Pneumococcal [...] on file documented as of this encounter Nursing Notes * Ngoc Brooks RN - 10/19/2024 1:28 PM EST Pt completed treatment without issues. VAD flushed with 10 ml NSS and Heparin 5 ml (100 units/ml). Vazquez needle removed intact. Goals: Pt will remain free from injury. Possible barriers to meeting goals: pt is a high fall risk Stability of the patient: Moderately stable - low risk of patient condition declining or worsening Summary regarding today's goals: Met: . Pt remained free from injury during treatment today. Discharged in stable condition. * Ngoc Brooks RN - 10/19/2024 9:53 AM EST Chemotherapy/Immunotherapy agents: ZIRABEV Consent for chemotherapy drug treatment complete, dated, and signed? yes, date - 05/12/23 Treatment lab parameters met? Yes Has treatment weight changed > than 10%? No Treatment preauthorized? Yes VITALS There were no vitals filed for this visit. BP Readings from Last 2 Encounters: 10/19/24 110/76 10/05/24 120/78 Pulse Readings from Last 2 Encounters: 10/19/24 91 10/05/24 84 Resp Readings from Last 2 Encounters: 10/05/24 16 09/21/24 16 SpO2 Readings from Last 2 Encounters: 10/19/24 88% 10/05/24 91% Temp Readings from Last 2 Encounters: 10/19/24 36.3 C (97.3 F) (Tympanic) 10/05/24 36.4 C (97.5 F) (Tympanic) Urine protein: POSITIVE, Trace, Dr. Berg aware Patient education completed for treatment? Yes Blood transfusion consent signed and complete? NA Return appointment scheduled? Yes Patient had provider visit today? Yes - Ok to release order and treat per provider VAD accessed; NSS infusing. Pt to receive hydration NSS 1L today; CXR ordered. Safety and Risk for Injury Patient will remain free from injury. Ensure appropriate safety devices are available. Provide and maintain safe environment. Functional Status: Functional status at today's visit: Ambulatory and capable of all selfcare but unable to carry out any work activities. Up and about more than 50% of waking hours The drug name, dose, infusion volume, rate [...] potential goodwin while using the heat function. documented in this encounter Plan of Treatment Upcoming Encounters Date Type Department Care Team (Late st Contact Info) Description 10/27/2024 7:40 AM EST Office Visit Family Practice [facility] [place] [address] [place] [id number] Buddy Patel III, MD [address] [facility] [place] [address] 10/31/2024 8:30 AM EST Imaging Radiology [address], [place] [address] [facility] [address] 11/02/2024 9:00 AM EST Laboratory Laboratory [facility] [place] [address] [place] [address] [phone] Vern[place] Lab [place] [address] [place] [address] 11/02/2024 9:30 AM EST Pharmacy Pharmacy Hematology Oncology [facility] [address] [place] [address] [facility], [facility] Hem/Onc [address] [place] [facility] [place] [address] 11/02/2024 9:30 AM EST Office Visit Hematology/Oncology [facility] [place] [address] [place] [phone] Yanet Berg MD [address] [place] [address] 11/02/2024 10:00 AM EST Hem/Onc Treatment Hematology/Oncology Treatment, [place] [address] [place] [phone] [place], Chair 4 Hem Onc [facility] [address] [facility] [place] [address] Health Maintenance Due Date Last Done Comments [...] this encounter Medical Devices Implanted Type Area Hand Quilter Device Identifier Shelf Expiration Date Model / Serial / Lot Port Implant W/8f Poly Cath - [id number] Implanted:Qty : 1 on 05/06/2023 by Leonardo Castro DO at OR [facility] Right: Chest CR BARD : PERIPHERAL VASCULAR [id number] 07/16/2024 [id number] / / [id number] documented as of this encounter Visit Diagnoses Diagnosis Malignant neoplasm of sigmoid colon (HCC)- Primary Malignant neoplasm of sigmoid colon Encounter for antineoplastic chemotherapy documented in this encounter Administered Medications Active Administered Medications - up to 3 most recent administrations Medication Order MAR Action Action Date Dose Rate Site diphenhydrAMINE (Benadryl) inj 50 mg 50 mg, IV Push, ONCE PRN Other, Hypersensitivity Reaction, Starting on Thu10/19/24 at 0922, Until Thu10/20/24 at 0921, For 24 hoursIndications:Malignant neoplasm of sigmoid colon (HCC),Encounter for antineoplastic chemotherapy EPINEPHrine 1 MG/ML inj 0.3 mg 0.3 mg, Intramuscular, ONCE PRN Other, Hypersensitivity Reaction or Anaphylaxis, Starting on Thu10/19/24 at 0922, Until Marcela 10/20/24 at 0921, For 24 hoursIndications:Malignant neoplasm of sigmoid colon (HCC),Encounter for antineoplastic chemotherapy hEParin 100 UNIT/ML Lock Flush inj 500 Units 500 Units (5 mL), IV Lock, PRN Other, IV Flush, Starting on Thu10/19/24 at 0922, Until Marcela 10/20/24 at 0921, For 24 hours, Do not flush if lock, PICC, or central line not in place; IV infusing or unable to flush.Indications:Malignant neoplasm of sigmoid colon (HCC),Encounter for antineoplastic chemotherapy Given 10/19/2024 11:39 AM EST 500 Units Hydrocortisone Sod Suc (PF) (Solu-Cortef) inj 100 mg 100 mg, IV Push, ONCE PRN Other, Hypersensitivity Reaction, Starting on Thu10/19/24 at 0922, Until Marcela 10/20/24 at 0921, For 24 hoursIndications:Malignant neoplasm of sigmoid colon (HCC),Encounter for antineoplastic chemotherapy NSS infusion Intravenous, at 50 mL/hr, PRN, Starting on Thu10/19/24 at 1030, Until Discontinued, Maintenance lineIndications:Malignant neoplasm of sigmoid colon (HCC),Encounter for antineoplastic chemotherapy Start Infusion 10/19/2024 9:37 AM EST 50 mL/hr oxygen GAS Inhalation, OXYGEN, First dose on Thu10/19/24 at 1000, Until Discontinued, Device/Managed by: Low Flow Device, Goal SPO2 (%): 91-95, Starting Device: Nasal Cannula, Initial Flow Rate (LPM): 2, Lowest Support: Nasal Cannula: Flow 0-6 LPM. Titrate up/down by 1 LPM., Higher Support: Non-Rebreather (NRB) Mask: Minimum of 10 LPM. Titrate to maintain bag inflation., Titration Interval: Q2 minutes and as needed., Notify Provider: For sudden DECREASE in resting SPO2 to less than 85% and when escalating delivery device., Wean patient off Oxygen when the oxygen saturation is greater than or equal to 93%Indications:Malignant neoplasm of sigmoid colon (HCC),Encounter for antineoplastic chemotherapy sodium chloride 0.9 % flush central line 10 mL 10 mL, IV Push, PRN Other, IV Flush, Starting on Thu10/19/24 at 0922, Until Marcela 10/20/24 at 0921, For 24 hours, Do not flush if lock, PICC, or central line not in place; IV infusing or unable to flush.Indications:Malignant neoplasm of sigmoid colon (HCC),Encounter for antineoplastic chemotherapy Given 10/19/2024 11:39 AM EST 10 mL Inactive Administered Medications - up to 3 most recent administrations Medication Order MAR Action Action Date Dose Rate Site bevaCIZumab-bvzr (Zirabev) 400 mg in NSS 100 mL infusion 400 mg (rounded from 418 mg = 5 mg/kg 83.6 kg Treatment plan Recorded weight), IV Piggyback, ONCE, 1 dose, On Thu10/19/24 at 1100, Administer over 30 Minutes, Flush with NSS only!Indications:Malignant neoplasm of sigmoid colon (HCC),Encounter for antineoplastic chemotherapy Start Infusion 10/19/2024 10:39 AM EST 400 mg 210 mL/hr NSS infusion FOR HYDRATION Intravenous, at 500 mL/hr Administer over 2 Hours, ONCE, 1 dose, On Thu10/19/24 at 1015Indications:Malignant neoplasm of sigmoid colon (HCC),Encounter for antineoplastic chemotherapy Start Infusion 10/19/2024 9:40 AM EST 1,000 mL 500 mL/hr documented in this encounter Care Teams Multimedia Services Manager Relationship Specialty Start Date End Date Buddy Patel III, MD [address] [facility] [place] [address] PCP - General Family Medicine 04/29/23 documented as of this encounter
--- OUTSIDE RECORDS SUMMARY | 2024-10-25 00:53 | External Medical Summary ---
Author Name Unknown Address Unknown Organization [id number]:[facility]ORY [facility] [place] [address] [place] [address] Laboratory Report Ordering Provider Test Date Status TEJAS TORRES 10/19/2024 07:57:14 Final Observation Date Value Abnormality Reference (Units ) Status Folic Acid 10/19/2024 07:57:14 14.0 >4.5 (ng/ mL) Final Performing Location [facility] - [address] [place] [address]
--- OUTSIDE RECORDS SUMMARY | 2024-10-25 00:53 | External Medical Summary | Summary of Care ---
Author Name Unknown Organization [facility] Address [address] [place] [address] Phone [phone] Care Team Providers Care Rn Gyn Name Role Phone Amanda BROWN MD, Buddy Britton Primary Care Provider [phone] Reason for Visit * Reason Comments Medication Management Encounter Details Date Type Department Care Team (Late st Contact Info) Description 10/05/2024 9:30 AM [facility] Pharmacy Pharmacy Hematology Oncology [facility] [address] [place] [address] [facility], [facility] Hem/Onc [address] [place], [place] [id number] Malignant neoplasm of sigmoid colon (HCC)* Allergies No known active allergiesdocumented as of this encounter (statuses as of 10/05/2024) Medications Dicyclomine HCl 10 MG Oral Capsule [...] Sprays into each nostril in the morning. [place] hand to apply. 16 g 3 4 [...] IN THE MORNING 30 Tablet 4 Active ALPRAZolam 1 MG Oral Tablet (xaNAX) 1 tablet at bedtime as needed for sleep 30 Tablet 1 4 Active HYDROcodone-Edmond taminophen 7.5-325 MG Oral TabletIndicatio ns:Malignant neoplasm of sigmoid colon (HCC) Take 1 Tablet by mouth every 6 hours as needed for Pain, Severe. 120 Tablet 4 Active oxyCODONE HCl 5 MG Oral Tablet (Oxy IR)Indications: Malignant neoplasm of sigmoid colon (HCC) Take 1 Tablet by mouth every 6 hours as needed for Pain, Severe. 120 Tablet 4 Active Ondansetron HCl 8 MG Oral Tablet (Zofran)Indicat ions:Malignant neoplasm of sigmoid colon (HCC) Take 1 Tablet by mouth every 8 hours as needed for Nausea. 30 Tablet 2 Active documented as of this encounter (statuses as of 10/05/2024) Active Problems Problem Noted Date Diagnosed Date Encounter for antineoplastic chemotherapy 2023 Metastatic colon cancer to liver 11/25/2023 Protein-calorie malnutrition 08/07/2023 Malignant neoplasm of sigmoid colon 04/22/2023 Encounter for antineoplastic chemotherapy 2022 documented as of this encounter (statuses as of 10/05/2024) Immunizations Name Administration Dates Next Due Pneumococcal [...] on file documented as of this encounter Progress Notes * Carisa Arceo, [facility] - 10/05/2024 9:29 AM EST MEDICATION THERAPY MANAGEMENT TRIFLURIDINE/TIPIRACIL TREATMENT PROGRESS NOTE Mendez Costa [phone] Patient Phone Numbers (sister Miri) Preferred Lab: [facility] Pharmacy: [facility] Communication: Seen in clinic Treatment: Medication: Trifluridine/Tipiracil (Lonsurf) Indication/Staging/Diagnosis Code: met colon cancer / C18.7 Dose Basis: 35mg/m2 (BSA 2m2) Dose: 70mg BID D1-5 and 8-12 every 28 days Administration: with food Start Date: 08/15/24 Primary Shirt Closer/Oncologist: Dr. Berg Additional Therapy: Bevacizumab Supportive Care Meds: Ondansetron Prophylactic Meds: None Relevant Chronic Medications: Category Medications Pertinent Notes Antihypertensives Atenolol 50mg daily Per PCP Cycle Dates C1 08/15-08/19; 08/22-08/26 C2 09/12-09/16; 09/19-09/23 C3 10/10-10/14; 10/17-10/21 C4 11/07-11/11; 11/14-11/18 (anticipated) Treatment History: FOLFOX FOLFIRI + panutumumab Treatment Dose Adjustment/Hold History: none Interval History: Confirmed cycle dates as above Reports UP No other concerns, tolerating therapy well Changes to medication list since last visit? No Drug interaction assessment: Treatment plan and current medication list evaluated for drug-drug interactions. No clinically significant drug interaction identified Assessment and Plan: ANC declining to grade 1 thrombocytopenia Per PI, no dose adjustment recommended for ANC > 1500 Will monitor closely Hgb low but stable Explained UP due to anemia Advised to increase dietary iron Will monitor closely Na+ low As BP WNL advised pt to increase dietary Na+ Will monitor closely All other labs stable Advised pt to start C3 Lonsurf as above Repeat labs in 2 weeks with OV Assessment of compliance: compliant Assessment of adverse effects attributed to drug therapy: Abdominal Pain - absent Decrease in Appetite - absent Diarrhea - absent Nausea/Vomiting - absent Fever - absent Dose adjustment needed based on lab or adverse drug reaction? No Follow up: 2 weeks OV/labs; 4 weeks MTM with labs Carisa Arceo, PharmD, BCOP Clinical Pharmacist, [facility] Oral Chemotherapy [facility] 10/05/2024, 9:57 AM Monitoring Parameters: Estimated CrCl Serum creatinine: 0.7 mg/dL 10/05/24 0726 Estimated creatinine clearance: 107.2 mL/min Hepatitis panel Latest Reference Range & Units 04/22/23 13:20 Hepatitis B Surface Antigen Negative Negative Hepatitis B Surface Antibody, Quantitative mIU/mL <3.5 HEPATITIS B SURFACE ANTIBODY Rpt Hepatitis B Surface Antibody, Interpretation NOT immune to Hepatitis B Virus Hepatitis B Surface Antibody, Qualitative Negative Hepatitis B Core Antibodies IgG and IgM Negative Negative Suggested lab monitoring Suggested lab monitoring: CBC/d prior to each cycle and D15 [no dose adjustments in moderate renal/hepatic impairment (not studied in severe impairment)]. Treatment Parameters Parameters to be met prior to cycle initiation: ANC > 1500 and PLT > 75,000 Pertinent labs: Latest Reference Range & Units 09/07/24 09:29 09/21/24 08:49 10/05/24 07:26 WBC 4.00 - 10.80 K/uL 4.58 6.42 3.46 (L) RBC 4.50 - 5.25 M/uL 4.36 4.22 4.05 HGB 14.0 - 16.8 g/dL 10.1 (L) 9.8 (L) 9.6 (L) HCT 40.0 - 48.4 % 34.1 (L) 32.7 (L) 31.2 (L) MCV 82.0 - 99.5 fL 78.2 77.5 77.0 MCH 27.0 - 34.0 pg 23.2 23.2 23.7 MCHC 32.0 - 36.0 g/dL 29.6 30.0 30.8 RDW 11.5 - 15.5 % 21.3 21.3 23.4 PLT 140 - 400 K/uL 269 170 280 MPV SEE REPORT SEE REPORT SEE REPORT CBC WITH WBC DIFFERENTIAL Rpt ! Rpt ! Rpt ! Absolute Neutrophils 1.80 - 7.70 K/uL 2.13 4.97 1.66 (L) Latest Reference Range & Units 09/07/24 09:29 09/21/24 08:49 10/05/24 07:26 SODIUM 135 - 146 mmol/L 136 136 130 (L) Latest Reference Range & Units 09/07/24 09:29 09/21/24 08:49 10/05/24 07:26 Albumin 3.8 - 5.0 g/dL 3.4 (L) 3.2 (L) 3.1 (L) AST 10 - 50 U/L 19 29 19 ALT 10 - 50 U/L <5 (L) 6 (L) <5 (L) Alkaline Phosphatase 35 - 130 U/L 169 (H) 180 (H) 131 (H) Bilirubin, Total <=1.2 mg/dL 0.9 1.0 1.1 09/07/2024 09/21/2024 10/05/2024 BP AND WT. Systolic -- -- 120 Systolic 110 96 Diastolic -- -- 78 Diastolic 71 64 Time Spent on Encounter: 11 - 15 minutes Encounter Group: Oncology Encounter Interventions Item Category: Oral Chemotherapy Trifluridine/Tipricil Problem/Rationale: Safety: Needs additional monitoring - Medication Requires monitoring Pharmacist Intervention(s): Lab monitoring, Non-pharmacological intervention provided, and Toxicitymonitoring Magnitude of Intervention: Monitoring with direction (Level 1) documented in this encounter Plan of Treatment Upcoming Encounters Date Type Department Care Team (Late st Contact Info) Description 10/19/2024 8:00 AM EST Laboratory Laboratory [facility] [address] [facility] [place] [phone] [facility] [address] [facility] [place] [address] 10/19/2024 8:30 AM EST Office Visit Hematology/Oncology [facility] [place] [address] [facility] [place] [phone] Yanet Berg MD [address] [facility] [place] [address] 10/19/2024 9:00 AM EST [facility] [address] [place] [phone] [place], Chair 1 Hem Onc [place] [address] [place] [address] 10/27/2024 7:40 AM EST Office Visit Family Practice [facility] [place] [address] [facility] [place] [address] Buddy Patel III, MD [address] [facility] [place] [address] 10/31/2024 8:30 AM EST Imaging Radiology [facility] [place] [address] [place] [address] 11/02/2024 9:30 AM EST Pharmacy Pharmacy Hematology Oncology [facility] [address] [place] [address] [facility], [facility] Hem/Onc [address] [place] [address] Health Maintenance Due Date Last Done Comments COVID-19 Vaccine (#1) 1968 HIV Screening 1978 Hepatitis C Screening 1981 DTap/Tdap Vaccines (1 - Tdap) 1982 Zoster Vaccines (1 of 2) 1982 Cologuard 2008 Fecal Occult Blood Test 2008 Sigmoidoscopy 2008 Influenza Vaccine (FLU shot) (#1) 2024 Depression Screening 08/07/2024 08/07/2023 Diabetes Screening 10/05/2027 10/05/2024, 1 11/21/2023, 09/07/2024, Additional history exists Lipid Panel 12/01/2028 12/01/2023, [...] this encounter Medical Devices Implanted Type Area Public Health Policy Analyst Device Identifier Shelf Expiration Date Model / Serial / Lot Port Implant W/8f Poly Cath - [id number] Implanted:Qty : 1 on 05/06/2023 by Leonardo Castro, DO at OR [facility] Right: Chest CR BARD : PERIPHERAL VASCULAR [id number] 07/16/2024 [id number] / / [id number] documented as of this encounter Visit Diagnoses Diagnosis Malignant neoplasm of sigmoid colon (HCC)- Primary Malignant neoplasm of sigmoid colon documented in this encounter Care Teams Rn Gyn Relationship Specialty Start Date End Date Buddy Patel III, MD [address] [place] [address] PCP - General Family Medicine 04/29/23 documented as of this encounter
--- OUTSIDE RECORDS SUMMARY | 2024-10-25 00:53 | External Medical Summary ---
Author Name Unknown Address Unknown Organization K01:[facility] - [address] [place] [address] Laboratory Report Ordering Provider Test Date Status TEJAS TORRES 10/19/2024 07:57:14 Final Observation Date Value Abnormality Reference (Units ) Status LDH 10/19/2024 07:57:14 425 Above high normal <= 250 (U/L) Final Performing Location [facility] - [address] [place] [address]
--- OUTSIDE RECORDS SUMMARY | 2024-10-25 00:53 | External Medical Summary ---
Author Name Unknown Address Unknown Organization K01:LABORATORY [facility] [place] - [address] [place] [address] Laboratory Report Ordering Provider Test Date Status TORRESTEJAS 10/19/2024 07:57:14 Final Observation Date Value Abnormality Reference (Units ) Status Retic, % (auto) 10/19/2024 07:57:14 0.44 Below low normal 0.80-1.90 (%) Final Reticulocytes, Absolute 10/19/2024 07:57:14 17.9 Below low normal 31.3-100.1 (K/uL) Final No result - reticulocyte yohana ue above or below level of detection. Reticulocyte fraction, immature 10/19/2024 07:57:14 16.4 2.5-20.6 (%) Final Reticulocyte HGB 10/19/2024 07:57:14 31.7 29. 7-37.4 (pg) Final Performing Location LABORATORY [facility] [place] - [address] [place] [address]
--- OUTSIDE RECORDS SUMMARY | 2024-10-25 00:53 | External Medical Summary | Summary of Care ---
Author Name Unknown Organization [facility] Address [address] [place] [address] Phone [phone] Care Team Providers Care Community Service Manager Name Role Phone Amanda BROWN MD, Evelyne Britton Primary Care Provider [phone] Reason for Visit * Reason Onset Date Comments Medication Refill 10/03/2024 Status Check 10/03/2024 Encounter Details Date Type Department Care Team (Late st Contact Info) Description 10/03/2024 Refill Family Practice [facility] [address] [facility] [place] [address] Evelyne Franco III, MD [address] [facility] [place] [address] Malignant neoplasm of sigmoid colon (HCC) Allergies No known active allergiesdocumented as of this encounter (statuses as of 10/06/2024) Medications Dicyclomine HCl 10 MG Oral Capsule [...] Sprays into each nostril in the morning. [place] hand to apply. 16 g 3 4 [...] for sleep 30 Tablet 1 4 Active HYDROcodone-Ac etaminophen 7.5-325 MG Oral TabletIndicati ons:Malignant [...] as of this encounter (statuses as of 10/06/2024) Active Problems Problem Noted Date Diagnosed Date Encounter for antineoplastic chemotherapy 2023 Metastatic colon cancer to liver 11/25/2023 Protein-calorie malnutrition 08/07/2023 Malignant neoplasm of sigmoid colon 04/22/2023 Encounter for antineoplastic chemotherapy 2022 documented as of this encounter (statuses as of 10/06/2024) Immunizations Name Administration Dates Next Due Pneumococcal [...] encounter Miscellaneous Notes * Telephone Encounter - Breann Rubio LPN - 10/06/2024 7:26 PM ESTSigned Prescriptions: Disp Refills oxyCODONE HCl 5 MG Oral Tablet (Oxy IR) 120 Ta*0 Sig: Take 1 Tablet by mouth every 6 hours as needed for Pain, Severe.Authorizing Provider: EVELYNE FRANCO III ALPRAZolam 1 MG Oral Tablet (xaNAX) 30 Tab*1 Si tablet at bedtime as needed for sleepAuthorizing Provider: EVELYNE FRANCO III HYDROcodone-Acetaminophen 7.5-325 MG Oral *120 Ta*0 Sig:Take 1 Tablet by mouth every 6 hours as needed for Pain, Severe.Authorizing Provider: EVELYNE FRANCO III * Telephone Encounter - Breann Rubio LPN - 10/06/2024 7:25 PM EST Called patient to let him know meds were sent in. No answer. * Telephone Encounter - Evelyne Franco III, MD - 10/06/2024 10:28 AM ESTSigned Prescriptions: Disp Refills oxyCODONE HCl 5 MG Oral Tablet (Oxy IR) 120 Ta*0 Sig: Take 1 Tablet by mouth every 6 hours as needed for Pain, Severe. Authorizing Provider: EVELYNE FRANCO III ALPRAZolam 1 MG Oral Tablet (xaNAX) 30 Tab*1 Si tablet at bedtime as needed for sleep Authorizing Provider: EVELYNE FRANCO III HYDROcodone-Acetaminophen 7.5- 325 MG Oral *120 Ta*0 Sig: Take 1 Tablet by mouth every 6 hours as needed for Pain, Severe. Authorizing Provider: EVELYNE FRANCO III * Telephone Encounter - Evelyne Franco III, MD - 10/06/2024 10:28 AM ESTSigned Prescriptions: Disp Refills oxyCODONE HCl 5 MG Oral Tablet (Oxy IR) 120 Ta*0 Sig: Take 1 Tablet by mouth every 6 hours as needed for Pain, Severe. Authorizing Provider: EVELYNE FRANCO III ALPRAZolam 1 MG Oral Tablet (xaNAX) 30 Tab*1 Si tablet at bedtime as needed for sleep Authorizing Provider: EVELYNE FRANCO III HYDROcodone-Acetaminophen 7.5- 325 MG Oral *120 Ta*0 Sig: Take 1 Tablet by mouth every 6 hours as needed for Pain, Severe. Authorizing Provider: EVELYNE FARNCO III * Telephone Encounter - Janki Belcher CPhT - 10/06/2024 9:05 AM EST pt calling to check on status of medication. Pt is low on medication - pt is asking to be called when medications are called in Thank you, Janki Belcher CPhT II [employer] [facility] ([facility]) 10/06/2024, 9:05 AM * Telephone Encounter - Wesley Schuster PHARM Tech - 10/05/2024 2:12 PM EST Pt returned phone call and clarified that he is currently taking 4 hydrocodone and 4 oxycodone daily. Thank you, Wesley Schuster Child Psychology Teacher I [facility] ([facility] Telepharmacy) 10/05/2024, 2:13 PM * Telephone Encounter - Dionna Casiano OSA - 10/05/2024 1:12 PM EST Reason for patient's call: Pt returning phone call to a nurse. Patient can be contacted at [phone]. * Telephone Encounter - Dionna Hernandez LPN - 10/05/2024 1:04 PM EST Left message for patient to return call, please verify message below per Dr. Franco * Telephone Encounter - Jenni Muleler CPhT - 10/05/2024 11:50 AM EST Pt calling to check on status of Alprazolam, Hydrocodone, and Oxycodone. Caller can be reached at [phone]. Thank you, Annette Mueller CPhT Juke Box Mechanic III [facility] ([facility]) [address] [place] [address], [address] [place] [address] [place] [address] [phone] * Telephone Encounter - Amanda BROWN, Evelyne Britton MD - 10/05/2024 8:12 AM EST Call please is he taking 4 hydrocodone and 4 oxycodone every day(ie 8 /day)? Picked up 240 tabs 09/05 has appointment 830 up in Heme-Onc check with them please * Telephone Encounter - Jayson Russo [facility] - 10/04/2024 4:17 PM ESTPending Prescriptions: Disp Refills oxyCODONE HCl 5 MG Oral Tablet (Oxy IR) 120 Ta*0 Sig: Take 1 Tablet by mouth every 6 hours as needed for Pain, Severe. ALPRAZolam 1 MG Oral Tablet (xaNAX) 30 Tab*1 Si tablet at bedtime as needed for sleep HYDROcodone-Acetaminophen 7.5-325 MG Oral *120 Ta*0 Sig: Take 1 Tablet by mouth every 6 hours as needed for Pain, Severe. * Telephone Encounter - Jayson Russo [facility] - 10/04/2024 4:17 PM EST I have reviewed the patients controlled substance dispensing history in the Prescription Drug Monitoring Program in compliance with the [facility] regulations before prescribing a controlled substance. PDMP checked on 10/04/2024. Pending Prescriptions: Disp Refills oxyCODONE HCl 5 MG Oral Tablet (Oxy IR) 120 Ta*0 Sig: Take 1 Tablet by mouth every 6 hours as needed for Pain, Severe. ALPRAZolam 1 MG Oral Tablet (xaNAX) 30 Tab*1 Si tablet at bedtime as needed for sleep HYDROcodone-Acetaminophen 7.5-325 MG Oral*120 Ta*0 Sig: Take 1 Tablet by mouth every 6 hours as needed for Pain, Severe. Last Visit: 07/28/2024 (in office), Visit date not found (telemedicine) Next Visit: 10/27/2024 Date medication was last filled: 09-05-24 Date medication is due for refill: 10-04-24 Pharmacy: [place] [facility] [address] [place] [address] Is this request for a controlled substance? Yes and Urine Drug Screen Not completed Toxicology results: No results found for this or any previous visit. Please approve if appropriate. Jayson Russo, Felix.Ph. Clinical Pharmacist [facility] ([facility]) [address] [place] [address], [address]: [phone] 10/04/2024,4:17 PM * Telephone Encounter - Leanna Dorman, blooming mill supervisor - 10/03/2024 10:53 AM EST Did you pend patient's preferred pharmacy and medication before forwarding?yes Pharmacy: [facility] [address] [place] [address] Pending Prescriptions: Disp Refills oxyCODONE HCl 5 MG Oral Tablet (Oxy IR) 120 Ta*0 Sig: Take 1 Tablet by mouth every 6 hours as needed for Pain, Severe. ALPRAZolam 1 MG Oral Tablet (xaNAX) 30 Tab*1 Si tablet at bedtime as needed for sleep HYDROcodone-Acetaminophen 7.5-325 MG Oral*120 Ta*0 Sig: Take 1 Tablet by mouth every 6 hours as needed for Pain, Severe. Last Visit: 07/28/2024 (in office), Visit date not found (telemedicine) Next Visit: 10/27/2024 If no future appointments scheduled, and last appointment is greater than a year ago, please schedule patient for a follow-up appointment Last date the medication was ordered: 09/05/2024 Is this request for a controlled substance?Yes, What was the last refill date 09/05/2024 w/ quantity 120 TAB, 30 TAB, 120 TAB and dosage 5 MG, 1 MG, 7.5-325 MG and Urine Drug Screen Not completed Urine Drug Screen:No results found for this or any previous visit. Patient Phone Numbers Labs: Lab Results Component Value Date/Time CREAT 0.7 09/21/2024 08:49 AM POTASSIUM 4.3 09/21/2024 08:49 AM LDL 91 12/01/2023 08:46 AM LDL 127 04/22/2023 01:20 PM ALT 6 (L) 09/21/2024 08:49 AM HGBA1C 6.0 (A) 04/17/2023 12:00 AM documented in this encounter Plan of Treatment Upcoming Encounters Date Type Department Care Team (Late st Contact Info) Description 10/19/2024 8:00 AM EST Laboratory Laboratory [facility] [address] [place] [phone] [place], Lab [facility] [address] [place] [address] 10/19/2024 8:30 AM EST Office Visit Hematology/Oncology [facility] [place] [address] [place] [phone] Yanet Berg MD [address] [place] [address] 10/19/2024 9:00 AM EST Hem/Onc Treatment Hematology/Oncology Treatment, [place] [address] [facility] [address] [place] [phone] Verna, Chair 1 Hem Onc [facility] [address] [facility] [place] [address] 10/27/2024 7:40 AM EST Office Visit Family Practice [facility] [place] [address] [place] [address] Evelyne Franco III, MD [address] [place] [address] 10/31/2024 8:30 AM EST Imaging Radiology [address], [place] [address] [facility] [place] [address] 11/02/2024 9:30 AM EST Pharmacy Pharmacy Hematology Oncology [address] [place] [address] [facility] [place] [place], [facility] Hem/Onc [address] [facility] [place] [address] Health Maintenance Due Date Last Done Comments [...] this encounter Medical Devices Implanted Type Area Farm Agent Device Identifier Shelf Expiration Date Model / Serial / Lot Port Implant W/8f Poly Cath - [id number] Implanted:Qty : 1 on 05/06/2023 by Leonardo Castro DO at OR [facility] Right: Chest CR BARD : PERIPHERAL VASCULAR [id number] 07/16/2024 [id number] / / [id number] documented as of this encounter Visit Diagnoses Diagnosis Malignant neoplasm of sigmoid colon (HCC) Malignant neoplasm of sigmoid colon documented in this encounter Care Teams Community Service Manager Relationship Specialty Start Date End Date Evelyne Franco III, MD [address] [place] [address] PCP - General Family Medicine 04/29/23 documented as of this encounter
--- OUTSIDE RECORDS SUMMARY | 2024-10-25 00:53 | External Medical Summary ---
Author Name Unknown Address Unknown Organization K01:[facility] [address] [place] [address] Laboratory Report Ordering Provider Test Date Status TEJAS TORRES 10/19/2024 07:57:14 Final Observation Date Value Abnormality Reference (Units ) Status Ferritin 10/19/2024 07:57:14 428 Above high normal 30 -400 (ng/mL) Final Performing Location [facility] [address] [place] [address]
--- OUTSIDE RECORDS SUMMARY | 2024-10-25 00:53 | External Medical Summary ---
Author Name Unknown Address Unknown Organization K09:[facility] [place] [address] Laboratory Report Ordering Provider Test Date Status TEJAS TORRES 10/19/2024 07:57:14 Final Observation Date Value Abnormality Reference (Units ) Status Nucleated erythrocytes/100 leukocytes [Ratio] in Blood by Automated count 10/19/2024 07:57:14 Final Acanthocytes [Presence] in Blood by Light microscopy 10/19/2024 07:57:14 Moderate Abnormal None Seen Final Elliptocytes [Presence] in Blood by Light microscopy 10/19/2024 07:57:14 Moderate Abnormal None Seen Final Schistocytes 10/19/2024 07:57:14 Few Abnormal None Seen Final Performing Location [facility] [place] [address]
--- OUTSIDE RECORDS SUMMARY | 2024-10-25 00:53 | External Medical Summary | Summary of Care ---
Author Name Unknown Organization [facility] Address [address] [place] [address] Phone [phone] Care Team Providers Care [employer] Consultant Name Role Phone Amanda BROWN MD, Buddy Britton Primary Care Provider [phone] Reason for Visit * Reason Comments Chemotherapy Day 1, cycle 3 zirab ev * Episode Based Medications (Routine) - Authorized Specialty Diagnoses / Procedures Referred By Contkim t Referred To Contact Diagnoses Malignant neoplasm of sigmoid colon (HCC) Encounter for antineoplastic chemotherapy Procedures OR INJ., ZIRABEV, 10 MG Yanet Berg MD [address] [place] [address], [place] [address] Phone: tel: fax: Hematology/Oncology Treatment, [address] [address] Phone: tel: fax: Referral ID Status Reason Start Date Expiration Date V isits Requested Visits Authorized [id number] Authorized 08/03/2024 11/15/2099 99 99 Encounter Details Date Type Department Care Team (Latest Contact Info) Description 10/05/2024 8:30 AM EST Hem/Onc Treatment Hematology/Oncolog y Treatment, [address] [place] [address] Verna, Chair [address] Hem On[address] [place] [address] Malignant neoplasm of sigmoid colon (HCC)*; [...] Sprays into each nostril in the morning. [place] hand to apply. 16 g 3 4 [...] hour of meal. On days 1-5 and -12 of 28 day cycle. 40 Tablet 5 [...] for Nausea. 30 Tablet 2 4 Active documented as of this encounter [...] in this encounter Nursing Notes * Patricia Bullard RN - 10/05/2024 10:52 AM EST Infusion complete. [...] left facility in stable condition. * Patricia Bullard RN - 10/05/2024 8:38 AM EST Chair [...] Description 10/19/2024 8:00 AM EST Laboratory Laboratory [facility] Gillespie [address] [place] [address] [phone] [place], Lab [facility] [address] [place] [address] [address] 10/19/2024 8:30 AM EST Office Visit Hematology/Oncology [facility] [place] [address] [place] [phone] Yanet Berg MD 200 [facility] [place] [address] 10/19/2024 9:00 AM EST Hem/Onc Treatment Hematology/Oncology Treatment, [place] [address] [place] [phone] [place], Chair 1 Hem Onc [address] [place] [address] 10/27/2024 7:40 AM EST Office Visit Family Practice [facility] [address] [place] [address] Buddy Patel III, MD [address] [facility] [place] [address] 10/31/2024 8:30 AM EST Imaging Radiology [address], [place] [address] [place] [address] 11/02/2024 9:30 AM EST Pharmacy Pharmacy Hematology Oncology [facility] [address] [place] [address] [facility] Hem/Onc [address] [place] [address] Health Maintenance Due Date Last Done Comments [...] this encounter Medical Devices Implanted Type Area Biofuels Research Scientist Device Identifier Shelf Expiration Date Model / Serial / Lot Port Implant W/8f Poly Cath - [id number] Implanted:Qty : 1 on 05/06/2023 by Leonardo Castro, at OR [facility] Right: Chest CR BARD : PERIPHERAL VASCULAR [id number] 07/16/2024 [id number] / / [id number] documented as of this encounter Visit Diagnoses [...] ONCE PRN Other, Hypersensitivity Reaction, Starting on Thu10/05/24 at 0837, Until Marcela 10/06/24 at 0836, For 24 hoursIndications:Malignant neoplasm of sigmoid colon (HCC),Encounter for antineoplastic chemotherapy EPINEPHrine 1 MG/ML inj 0.3 mg 0.3 mg, Intramuscular, ONCE PRN Other, Hypersensitivity Reaction or Anaphylaxis, Starting on Thu10/05/24 at 0837, Until Marcela 10/06/24 at 0836, For 24 hoursIndications:Malignant neoplasm of sigmoid colon (HCC),Encounter for antineoplastic chemotherapy hEParin 100 UNIT/ML Lock Flush inj 500 Units 500 Units (5 mL), IV Lock, PRN Other, IV Flush, Starting on Thu10/05/24 at 0837, Until Marcela 10/06/24 at 0836, For 24 hours, Do not flush if lock, PICC, or central line not in place; IV infusing or unable to flush.Indications:Malignant neoplasm of sigmoid colon (HCC),Encounter for antineoplastic chemotherapy Given 10/05/2024 10:12 AM EST 500 Units Hydrocortisone Sod Suc (PF) (Solu-Cortef) inj 100 mg 100 mg, IV Push, ONCE PRN Other, Hypersensitivity Reaction, Starting on Thu10/05/24 at 0837, Until Marcela 10/06/24 at 0836, For 24 hoursIndications:Malignant neoplasm of sigmoid colon (HCC),Encounter for antineoplastic chemotherapy NSS infusion Intravenous, at 50 mL/hr, PRN, Starting on Thu10/05/24 at 0945, Until Discontinued, Maintenance lineIndications:Malignant neoplasm of sigmoid colon (HCC),Encounter for antineoplastic chemotherapy Start Infusion 10/05/2024 8:47 AM EST 50 mL/hr oxygen GAS Inhalation, OXYGEN, First dose on Thu10/05/24 at 0915, Until Discontinued, Device/Managed by: Low Flow Device, [...] Flush, Starting on Thu10/05/24 at 0837, Until Marcela 10/06/24 at 0836, For 24 hours, Do not flush if lock, PICC, or central line not in place; IV infusing or unable to flush.Indications:Malignant neoplasm of sigmoid colon (HCC),Encounter for antineoplastic chemotherapy Given 10/05/2024 10:12 AM EST 10 mL Inactive Administered Medications [...] 9:32 AM EST 400 mg 210 mL/hr documented in this encounter Care Teams [employer] Consultant Relationship Specialty Start Date End Date Buddy Patel III, MD [address] [place] [address] PCP - General Family Medicine 04/29/23 documented as of this encounter
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
--- OUTSIDE RECORDS SUMMARY | 2024-10-25 00:53 | External Medical Summary | Summary of Care ---
Author Name Unknown Organization [facility] Address [address] [place] [address] Phone [phone] Care Team Providers Care Bearing Ring Assembler Name Role Phone Amanda BROWN MD, Buddy Britton Primary Care Provider [phone] Encounter Details Date Type Department Care Team (Late st Contact Info) Description 10/19/2024 Orders Only Hematology/Oncology [facility] [place] [address] [facility] [place] [address] Yanet Berg MD [address] [place] [address] Allergies No known active allergiesdocumented as of [...] Sprays into each nostril in the morning. [place] hand to apply. 16 g 3 4 [...] on file documented as of this encounter Plan of Treatment Upcoming Encounters Date Type Department Care Team (Late st Contact Info) Description 10/19/2024 11:00 AM EST Imaging Radiology [address] [place] [address] [place] [address] Arrived 10/27/2024 7:40 AM EST Office Visit [facility] [place] 200 [facility] [place], [place] [address] Buddy Patel III, MD [address] [place] [address] 10/31/2024 8:30 AM EST Imaging Radiology [address] [place] [address] 11/02/2024 9:30 AM EST Pharmacy Pharmacy Hematology Oncology [facility] [address] [place] [address] [facility] Hem/Onc [address] [place] [address] Health Maintenance Due Date Last Done Comments [...] this encounter Medical Devices Implanted Type Area Mechanical Artist Device Identifier Shelf Expiration Date Model / Serial / Lot Port Implant W/8f Poly Cath - [id number] Implanted:Qty : 1 on 05/06/2023 by Leonardo Castro DO at OR [facility] Right: Chest CR BARD : PERIPHERAL VASCULAR [id number] 07/16/2024 [id number] / / [id number] documented as of this encounter Care Teams Bearing Ring Assembler Relationship Specialty Start Date End Date Buddy Patel III, MD [address] [facility] [place] [address] PCP - General Family Medicine 04/29/23 documented as of this encounter
--- OUTSIDE RECORDS SUMMARY | 2024-10-25 00:53 | External Medical Summary | Summary of Care ---
Author Name Unknown Organization [facility] Address [address] [place] [address] Phone [phone] Care Team Providers Care Sole Painter Name Role Phone Amanda BROWN MD, Buddy Britton Primary Care Provider [phone] Reason for Visit * Reason Comments Outpatient Testing Encounter Details Date Type Department Care Team (Late st Contact Info) Description 10/05/2024 7:30 AM EST Laboratory Laboratory [facility] [address] [place] [phone] [facility] [address] [place] [id number] Metastatic colon cancer to liver (HCC); Malignant neoplasm of sigmoid colon (HCC) Allergies [...] Sprays into each nostril in the morning. [place] hand to apply. 16 g 3 4 [...] Team (Late st Contact Info) Description 10/05/2024 8:30 AM EST Hem/Onc Treatment Hematology/Oncology Treatment, [place] [address] [place] [phone] Verna, Chair 7 Hem Onc [place] [address] [place] [address] Arrived 10/05/2024 9:30 AM EST Pharmacy Pharmacy Hematology Oncology [facility] [address] [place] [address] [facility] Hem/Onc [address] [place] [address] 10/19/2024 8:00 AM EST Laboratory Laboratory [facility] [place] [address] [place] [phone] Verna [facility] [address] [address] 10/19/2024 8:30 AM EST Office Visit Hematology/Oncology [facility] [place] [address] [place] [phone] Yanet Berg MD [address] [place] [address] 10/19/2024 9:00 AM EST [facility] [address] [place] [phone] Verna, Chair 1 Hem Onc [facility] 200 [facility] [place] [address] 10/27/2024 7:40 AM EST Office Visit Family Practice [facility] Verna [place] [address] [place] [address] Buddy Patel III, MD 200 [facility] [place] [address] 10/31/2024 8:30 AM EST Imaging Radiology [facility] 1st [facility] [place] 132 [facility] [place] [address] Pending Results Name Type Priority Associated Diagnoses Date /Time MAGNESIUM Lab STAT Metastatic colon cancer to liver (HCC) 10/05/2024 7:26 AM EST CBC WITH WBC DIFFERENTIAL Lab STAT Metastatic colon cancer to liver (HCC) Malignant neoplasm of sigmoid colon (HCC) 10/05/2024 7:26 AM EST COMPREHENSIVE METABOLIC PANEL Lab STAT Metastatic colon cancer to liver (HCC) Malignant neoplasm of sigmoid colon (HCC) 10/05/2024 7:26 AM EST CBC Lab STAT Metastatic colon cancer to liver (HCC) Malignant neoplasm of sigmoid colon (HCC) 10/05/2024 7:26 AM EST DIFFERENTIAL, AUTOMATED Lab STAT Metastatic colon cancer to liver (HCC) Malignant neoplasm of sigmoid colon (HCC) 10/05/2024 7:26 AM EST URINALYSIS, REFLEX TO MICROSCOPIC Lab STAT Metastatic colon cancer to liver (HCC) Malignant neoplasm of sigmoid colon (HCC) 10/05/2024 7:33 AM EST Health Maintenance Due Date Last Done Comments COVID-19 Vaccine (#1) 1968 HIV Screening 1978 Hepatitis C Screening 1981 DTap/Tdap Vaccines (1 - Tdap) 1982 Zoster Vaccines (1 of 2) 1982 Cologuard 2008 Fecal Occult Blood Test 2008 Sigmoidoscopy 2008 Influenza Vaccine (FLU shot) (#1) 2024 Depression Screening 08/07/2024 08/07/2023 Diabetes Screening 09/21/2027 09/21/2024, 1 , 08/24/2024, Additional history exists Lipid Panel 12/01/2028 12/01/2023, [...] this encounter Medical Devices Implanted Type Area Rail Car Operator Device Identifier Shelf Expiration Date Model / Serial / Lot Port Implant W/8f Poly Cath - [id number] Implanted:Qty : 1 on 05/06/2023 by Leonardo Castro, at OR [facility] Right: Chest CR BARD : PERIPHERAL VASCULAR [id number] 07/16/2024 [id number] / / [id number] documented as of this encounter Visit Diagnoses Diagnosis Metastatic colon cancer to liver (HCC) Malignant neoplasm of colon, unspecified site Malignant neoplasm of sigmoid colon (HCC) Malignant neoplasm of sigmoid colon documented in this encounter Care Teams Sole Painter Relationship Specialty Start Date End Date Buddy Patel III, MD 200 [facility] [place] [address] PCP - General Family Medicine 04/29/23 documented as of this encounter
--- OUTSIDE RECORDS SUMMARY | 2024-10-25 00:53 | External Medical Summary | Summary of Care ---
Author Name Unknown Organization [facility] Address [address] [place] [address] Phone [phone] Care Team Providers Care Lead Manufacturing Technician Name Role Phone Amanda BROWN MD, Buddy Britton Primary Care Provider [phone] Reason for Visit * Reason Comments Outpatient Testing Encounter Details Date Type Department Care Team (Late st Contact Info) Description 10/19/2024 8:00 AM EST Laboratory Laboratory [facility] [address] [place] [address] [facility] [address] [place] [id number] Metastatic colon cancer to liver (HCC); Malignant [...] Sprays into each nostril in the morning. [place] hand to apply. 16 g 3 4 [...] as needed for Pain, Severe. 120 Tablet Active documented as of this encounter (statuses [...] 10/19/2024 8:30 AM EST Office Visit Hematology/Oncology [facility] [address] [place] [phone] Yanet Berg MD [address] [place] [address] [address] Arrived 10/19/2024 9:00 AM EST Hem/Onc Treatment Hematology/Oncology Treatment, [place] [address] [place] [address] Verna, Chair 1 Hem Onc [facility] [address] [facility] [place] [address] 10/27/2024 7:40 AM EST Office Visit Family Practice [facility] [place] [address] [place] [address] Buddy Patel III, MD [address] [facility] [place] [address] 10/31/2024 8:30 AM EST Imaging Radiology [address], [place] [address] [place] [address] 11/02/2024 9:30 AM EST Pharmacy Pharmacy Hematology Oncology [facility] [address] [place] [address] [facility] Hem/Onc [address] [place] [address] Pending Results Name Type Priority Associated Diagnoses Date /Time MAGNESIUM Lab STAT Metastatic colon cancer to liver (HCC) 10/19/2024 7:57 AM EST CBC WITH WBC DIFFERENTIAL Lab STAT Metastatic colon cancer to liver (HCC) Malignant neoplasm of sigmoid colon (HCC) 10/19/2024 7:57 AM EST COMPREHENSIVE METABOLIC PANEL Lab STAT Metastatic colon cancer to liver (HCC) Malignant neoplasm of sigmoid colon (HCC) 10/19/2024 7:57 AM EST CBC Lab STAT Metastatic colon cancer to liver (HCC) Malignant neoplasm of sigmoid colon (HCC) 10/19/2024 7:57 AM EST DIFFERENTIAL, AUTOMATED Lab STAT Metastatic colon cancer to liver (HCC) Malignant neoplasm of sigmoid colon (HCC) 10/19/2024 7:57 AM EST URINALYSIS, REFLEX TO MICROSCOPIC Lab STAT Metastatic colon cancer to liver (HCC) Malignant neoplasm of sigmoid colon (HCC) 10/19/2024 8:04 AM EST Health Maintenance Due Date Last [...] this encounter Medical Devices Implanted Type Area Hardware Trainer Device Identifier Shelf Expiration Date Model / Serial / Lot Port Implant W/8f Poly Cath - [id number] Implanted:Qty : 1 on 05/06/2023 by Leonardo Castro, at OR [facility] Right: Chest CR BARD : PERIPHERAL VASCULAR [id number] 07/16/2024 [id number] / / [id number] documented as of this encounter Visit Diagnoses Diagnosis Metastatic colon cancer to liver (HCC) Malignant neoplasm of colon, unspecified site Malignant neoplasm of sigmoid colon (HCC) Malignant neoplasm of sigmoid colon documented in this encounter Care Teams Lead Manufacturing Technician Relationship Specialty Start Date End Date Buddy Patel III, MD [address] [facility] [place] [address] PCP - General Family Medicine 04/29/23 documented as of this encounter
--- OUTSIDE RECORDS SUMMARY | 2024-10-25 00:53 | External Medical Summary | Summary of Care ---
Author Name Unknown Organization [facility] Address [address] [place] [address] Phone [phone] Care Team Providers Care Manufacturing Technologist Name Role Phone Amanda BROWN MD, Buddy Britton Primary Care Provider [phone] Reason for Visit * Reason Comments Outpatient Testing Encounter Details Date Type Department Care Team (Late st Contact Info) Description 10/19/2024 8:00 AM EST Laboratory Laboratory [facility] [address] [place] [address] [facility] [address] [place] [id number] Metastatic colon cancer to liver (HCC); Malignant [...] Sprays into each nostril in the morning. [place] hand to apply. 16 g 3 4 [...] [facility] [address] [place] [phone] Yanet Berg MD [address] [place] [address] Arrived 10/19/2024 9:00 AM EST Hem/Onc Treatment Hematology/Oncology Treatment, [place] [address] [place] [address] Verna, Chair 1 Hem Onc [facility] [address] [place] [address] Arrived 10/27/2024 7:40 AM EST Office Visit Family Practice [facility] [place] [address] [place] [address] Buddy Patel III, MD [address] [facility] [place] [address] 10/31/2024 8:30 AM EST Imaging Radiology [address], [place] [address] [place] [address] 11/02/2024 9:30 AM EST Pharmacy Pharmacy Hematology Oncology [facility] [address] [place] [address] [facility] Hem/Onc [address] [place] [address] Pending Results Name Type Priority Associated Diagnoses [...] this encounter Medical Devices Implanted Type Area P 3 Armament/Ordnance Ima Technician Device Identifier Shelf Expiration Date Model / Serial / Lot Port Implant W/8f Poly Cath - [id number] Implanted:Qty : 1 on 05/06/2023 by Leonardo Castro, at OR [facility] Right: Chest CR BARD : PERIPHERAL VASCULAR [id number] 07/16/2024 [id number] / / [id number] documented as of this encounter Visit Diagnoses Diagnosis Metastatic colon cancer to liver (HCC) Malignant neoplasm of colon, unspecified site Malignant neoplasm of sigmoid colon (HCC) Malignant neoplasm of sigmoid colon documented in this encounter Care Teams Manufacturing Technologist Relationship Specialty Start Date End Date Buddy Patel III, MD 200 [place] [address] PCP - General Family Medicine 04/29/23 documented as of this encounter
--- OUTSIDE RECORDS SUMMARY | 2024-10-25 00:53 | External Medical Summary ---
Author Name Unknown Address Unknown Organization [id number]:[facility] - [address] [place] [address] Laboratory Report Ordering Provider Test Date Status TEJAS TORRES 10/19/2024 07:57:14 Final Observation Date Value Abnormality Reference (Units ) Status Iron 10/19/2024 07:57:14 45 45-176 (ug/dL) Final Iron-binding capacity 10/19/2024 07:57:14 213 Below low normal 250-425 (ug/dL) Final Transferrin Sat % 10/19/2024 07:57:14 21 15-55 (%) Final Performing Location [facility] - [address] [place] [address]
--- OUTSIDE RECORDS SUMMARY | 2024-10-25 00:53 | External Medical Summary ---
Author Name Unknown Address Unknown Organization K09:[facility] [place] [address] Laboratory Report Ordering Provider Test Date Status TEJAS TORRES 10/19/2024 07:57:14 Final Observation Date Value Abnormality Reference (Units ) Status BUN 10/19/2024 07:57:14 11 6-20 (mg/dL) Final Creatinine 10/19/2024 07:57:14 0.7 0.6-1.2 (mg/dL) Final Glomerular filtration rate/1.73 sq M.predicted [Volume Rate/Area] in Serum, Plasma or Blood by Creatinine-based formula (CKD-EPI) 10/19/2024 07:57:14 >90 >=60 (mL/min) Final eGFR is calculated based on the CKD-EPI 2020 equation. Sodium 10/19/2024 07:57:14 130 Below low normal 135 -146 (mmol/L) Final Potassium 10/19/2024 07:57:14 4.6 3.5-5.1 (m mol/L) Final Cl 10/19/2024 07:57:14 98 98-107 (mm ol/L) Final CO2 10/19/2024 07:57:14 21 Below low normal 22- 32 (mmol/L) Final Anion gap 10/19/2024 07:57:14 11 7-15 (mmol /L) Final Glucose 10/19/2024 07:57:14 112 70-120 (mg /dL) Final Albumin 10/19/2024 07:57:14 3.0 Below low normal 3.8 -5.0 (g/dL) Final AST (Aspartate aminotransferase) 10/19/2024 07:57:14 44 10-50 (U/L) Fin al Alk Phos 10/19/2024 07:57:14 241 Above high normal 35 -130 (U/L) Final Bilirubin, Total 10/19/2024 07:57:14 0.8 <=1 .2 (mg/dL) Final Calcium 10/19/2024 07:57:14 9.0 8.4-10.2 ( mg/dL) Final Protein 10/19/2024 07:57:14 8.3 6.0-8.3 (g /dL) Final ALT (Alanine aminotransferase) 10/19/2024 07:57:14 18 10-50 (U/L) Jake chavez Performing Location [facility] [address] [place] [address]
--- OUTSIDE RECORDS SUMMARY | 2024-10-25 00:53 | External Medical Summary ---
Author Name Unknown Address Unknown Organization K09:[facility] [place] [address] Laboratory Report Ordering Provider Test Date Status TEJAS TORRES 10/19/2024 07:57:14 Final Observation Date Value Abnormality Reference (Units ) Status SYNC LEUKOCYTES IN BLOOD BY AUTOMATED COUNT 10/19/2024 07:57:14 6.41 4.00-10.80 (K/uL) Final Segs 10/19/2024 07:57:14 79.4 Above high normal 40.0-75.0 (%) Final Lymphs % 10/19/2024 07:57:14 14.7 Below low normal 18.0-42.0 (%) Final Monos 10/19/2024 07:57:14 5.3 1.0-11.0 (%) Final Eosinophils 10/19/2024 07:57:14 0.3 0.0-6.0 (%) Final Basos 10/19/2024 07:57:14 0.3 0.0-2.0 (%) Final Absolute Segs 10/19/2024 07:57:14 5.09 1.80-7.70 (K/uL) Final Lymphs, absolute 10/19/2024 07:57:14 0.94 Below low normal 1.00-4.80 (K/ul) Final Monos, Abs 10/19/2024 07:57:14 0.34 0.00-1.10 (K/uL) Final Eos, Abs 10/19/2024 07:57:14 0.02 0.00-0.70 (K/uL) Final Basos, Abs 10/19/2024 07:57:14 0.02 0.00-0.20 (K/uL) Final Performing Location [facility] [address] [place] [address]
--- OUTSIDE RECORDS SUMMARY | 2024-10-25 00:53 | External Medical Summary ---
Author Name Unknown Address Unknown Organization K09:[facility] [place] [address] Laboratory Report Ordering Provider Test Date Status TEJAS TORRES 10/19/2024 07:57:14 Final Observation Date Value Abnormality Reference (Units ) Status Magnesium 10/19/2024 07:57:14 2.1 1.5-2.6 (m g/dL) Final Performing Location [facility] [place] [address]
--- OUTSIDE RECORDS SUMMARY | 2024-10-25 00:54 | External Medical Summary ---
Author Name Unknown Address Unknown Organization K09:[facility] [place] [address] Laboratory Report Ordering Provider Test Date Status TEJAS TORRES 10/05/2024 07:26:51 Final Observation Date Value Abnormality Reference (Units ) Status WBC, Total 10/05/2024 07:26:51 3.46 Below low normal 4. 00-10.80 (K/uL) Final RBC 10/05/2024 07:26:51 4.05 4.50-5.25 (M/uL) Final Hemoglobin 10/05/2024 07:26:51 9.6 Below low normal 14 .0-16.8 (g/dL) Final HCT 10/05/2024 07:26:51 31.2 Below low normal 40. 0-48.4 (%) Final MCV 10/05/2024 07:26:51 77.0 82.0-99.5 (fL) Final MCH 10/05/2024 07:26:51 23.7 27.0-34.0 (pg) Final MCHC 10/05/2024 07:26:51 30.8 32.0-36.0 (g/dL) Final RDW 10/05/2024 07:26:51 23.4 11.5-15.5 (%) Final Platelets 10/05/2024 07:26:51 280 140-400 (K /uL) Final MPV 10/05/2024 07:26:51 Final No result - abnormal platele t distribution. Performing Location [facility] [place] [address]
--- OUTSIDE RECORDS SUMMARY | 2024-10-25 00:54 | External Medical Summary | Summary of Care ---
Author Name Unknown Organization [facility] Address [address] [place] [address] Phone [phone] Care Team Providers Care Coat Tailor Name Role Phone Amanda BROWN MD, Buddy rBitton Primary Care Provider [phone] Reason for Visit * Reason Comments Chemotherapy C1 D 15 Zirabev * Episode Based Medications (Routine) - Authorized Specialty Diagnoses / Procedures Referred By Yany t Referred To Contact Diagnoses Malignant neoplasm of sigmoid colon (HCC) Encounter for antineoplastic chemotherapy Procedures [place] INJ., ZIRABEV, 10 MG Yanet Berg MD [address] [place] [address], [place] [address] Phone: tel: fax: Hematology/Oncology Treatment, [address] [address] Phone: tel: fax: Referral ID Status Reason Start Date Expiration Date V isits Requested Visits Authorized [id number] Authorized 08/03/2024 11/15/2099 99 99 Encounter Details Date Type Department Care Team (Latest Contact Info) Description 08/24/2024 9:00 AM EDT Hem/Onc Treatment Hematology/Oncolog y Treatment, [address] [place] [address] Verna, Chair 3 Hem Onc [address] [place] [address] Malignant neoplasm of sigmoid colon (HCC)*; Encounter for antineoplastic chemotherapy Allergies No known active allergiesdocumented as of this encounter (statuses as of 09/29/2024) Medications Dicyclomine HCl 10 MG Oral Capsule (Bentyl) Take 1 Capsule by mouth 4 times a day as needed for Pain. For abdominal pain 8 Capsule 08/07/20 23 Active Additional Information Patient not taking.Reported on 09/21/2024 Atenolol 50 MG Oral Tablet (Tenormin) Take 1 Tablet by mouth in the morning. 90 Tablet 3 11/25/19 24 Active Polyethylene Glycol 3350 17 GM/SCOOP Oral Powder (Miralax) Take 17 g by mouth in the morning. 255 g 11/25/19 24 Active Sennosides 8.6 MG Oral Tablet (Senokot) Take 1 Tablet by mouth in the morning and 1 Tablet before bedtime. 60 Tablet 11/25/19 24 Active Fluticasone Propionate 50 MCG/ACT Nasal Suspension (Flonase) Administer 2 Sprays into each nostril in the morning. [place] hand to apply. 16 g 3 11/25/19 Active Additional Information Patient not taking.Reported on 09/21/2024 Clindamycin Phosphate 1 % External SolutionIndic ations:Acneif orm rash Apply topically to affected area 2 times a day. Apply to rash on face. 30 mL 06/27/20 Active Additional Information Patient not taking.Reported on 09/21/2024 Trifluridine- Tipiracil 15-6.14 MG Oral Tablet (Lonsurf)Britta cations:Malig nant neoplasm of sigmoid colon (HCC) Take 30 mg (2 tablets) by mouth in the morning and 30 mg (2 tablets) before bedtime. Take within 1 hour of meal. On days 1-5 and - of 28 day cycle. 40 Tablet 5 4 12:58 PM EDT 08/04/20 24 Active Trifluridine- Tipiracil 20-8.19 MG Oral Tablet (Lonsurf)Britta cations:Malig nant neoplasm of sigmoid colon (HCC) Take 40 mg (2 tablets) by mouth in the morning and 40 mg (2 tablets) before bedtime. Take within 1 hour of meal. On days 1-5 and - of 28 day cycle. 40 Tablet 5 4 12:58 PM EDT 08/04/20 24 Active Ondansetron HCl 8 MG Oral Tablet (Zofran)Indic ations:Malign ant neoplasm of sigmoid colon (HCC) Take 1 Tablet by mouth every 8 hours as needed for Nausea. 30 Tablet 2 05/10/20 24 Discontinued(Re fill) ALPRAZolam 1 MG Oral Tablet (xaNAX) 1 tablet at bedtime as needed for sleep 30 Tablet 1 07/04/20 24 024 Discontinued(Re fill) Potassium Chloride ER 10 MEQ Oral Tablet Extended ReleaseIndica tions:Metasta tic colon cancer to liver (HCC) Take 1 Tablet by mouth in the morning. 30 Tablet 08/03/20 24 024 Discontinued HYDROcodone-A cetaminophen 7.5-325 MG Oral TabletIndicat ions:Malignan t neoplasm of sigmoid colon (HCC) Take 1 Tablet by mouth every 6 hours as needed for Pain, Severe. 120 Tablet 08/09/20 24 024 Discontinued(Re fill) oxyCODONE HCl 5 MG Oral Tablet (Oxy IR)Indication s:Malignant neoplasm of sigmoid colon (HCC) Take 1 Tablet by mouth every 6 hours as needed for Pain, Severe. 120 Tablet 08/09/20 24 024 Discontinued(Re fill) documented as of this encounter (statuses as of 09/29/2024) Active Problems Problem Noted Date Diagnosed Date Encounter for antineoplastic chemotherapy 2023 Metastatic colon cancer to liver 11/25/2023 Protein-calorie malnutrition 08/07/2023 Malignant neoplasm of sigmoid colon 04/22/2023 Encounter for antineoplastic chemotherapy 2022 documented as of this encounter (statuses as of 09/29/2024) Immunizations Name Administration Dates Next Due Pneumococcal [...] Sign Reading Time Taken Comments Blood Pressure 120/53 08/24/2024 11:36 AM EDT Pulse 79 08/24/2024 11:36 AM EDT Temperature 36.5 C (97.7 F) 08/24/2024 11:36 AM E DT Respiratory Rate 18 08/24/2024 11:36 AM EDT Oxygen Saturation 95% 08/24/2024 11:36 AM EDT Inhaled Oxygen Concentration - - Weight 83.3 kg (183 lb 9.6 oz) 08/24/2024 11:36 AM EDT Height - - Body Mass Index 27.92 02/23/2024 9:11 AM EDT documented in this encounter Nursing Notes * Phylicia Schwartz RN - 08/24/2024 11:42 AM EDT Patient tolerated treatment without incident. VAD with brisk blood return and flushed with 10 ml NSS and Heparin 5 ml (100 units/ml). Vazquez needle removed intact. Goals: Patient will remain free from injury Possible barriers to meeting goals: Ambulating with IV pole Stability of the patient: Moderately stable - low risk of patient condition declining or worsening Summary regarding today's goals: Met: Patient remained free from harm. Pt discharged in stable condition. * Phylicia Schwartz RN - 08/24/2024 11:37 AM EDT Chair 4 Patient here for treatment. Port accessed with brisk blood return. Patient offers no acute complaints. Chemotherapy/Immunotherapy agents: ZIRABEYvonne Consent for chemotherapy drug treatment complete, dated, and signed? yes, date - 08/03/24 Treatment lab parameters met? Yes Has treatment weight changed > than 10%? No Treatment preauthorized? Yes VITALS Filed Vitals: 08/24/24 1136 BP: 120/53 Pulse: 79 Resp: 18 Temp: 36.5 C (97.7 F) SpO2: 95% Weight: 83.3 kg (183 lb 9.6 oz) Urine protein: NEGATIVE Patient education completed for [...] NEURO: denies symptoms CV/RESP: denies symptoms GI/: denies symptoms OTHER: denies any additional symptoms PAIN: 0 Safety and Risk for Injury Patient will remain free from injury. Ensure appropriate safety devices are available. Provide and maintain safe environment. documented in this encounter Plan of Treatment Upcoming Encounters Date Type Department Care Team (Late st Contact Info) Description 10/05/2024 7:30 AM EST Laboratory Laboratory [facility] [place] 200 [facility] [place] [phone] [place], Lab [address] [place] [address] 10/05/2024 8:30 AM EST Hem/Onc Treatment Hematology/Oncology Treatment, [place] 200 [facility], [place] [phone] Verna, Chair 7 Hem Onc [address] [address] [place] [address] 10/05/2024 9:30 AM EST Pharmacy Pharmacy Hematology Oncology [facility] [address] [place] [address] [facility] Hem/Onc [address] [place] [address] 10/19/2024 8:00 AM EST Laboratory Laboratory [facility] [place] [address] [place] [phone] Verna, Lab [address]en[address] [facility] [place] [address] 10/19/2024 8:30 AM EST Office Visit Hematology/Oncology [facility] [place] [address] [place] [phone] Yanet Berg MD [address] [place] [address] 10/19/2024 9:00 AM EST Hem/Onc Treatment [facility]ology[facility], [place] [facility] [phone] Verna, Chair 1 Hem Onc [address] [place] [address] 10/27/2024 7:40 AM EST Office Visit Family Practice [facility] [place] [address] [place] [address] Buddy Patel III, MD [address] [facility] [place], [place] [address] 10/31/2024 8:30 AM EST Imaging Radiology [address], [place] [address] [facility] [place] [id number] Health Maintenance Due Date Last Done Comments [...] this encounter Medical Devices Implanted Type Area Capsule Filler Device Identifier Shelf Expiration Date Model / Serial / Lot Port Implant W/8f Poly Cath - [id number] Implanted:Qty : 1 on 05/06/2023 by Leonardo Castro DO at OR [facility] Right: Chest CR BARD : PERIPHERAL VASCULAR [id number] 07/16/2024 [id number] / / [id number] documented as of this encounter Visit Diagnoses [...] weight), IV Piggyback, ONCE, 1 dose, On Thu08/24/24 at 1115, Administer over 30 MinutesIndications:Malignan t neoplasm of sigmoid colon (HCC),Encounter for antineoplastic chemotherapy Start Infusion 08/24/2024 10:14 AM EDT 400 mg 210 mL/hr hEParin 100 UNIT/ML Lock Flush inj 500 Units 500 Units (5 mL), IV Lock, PRN Other, IV Flush, Starting on Thu08/24/24 at 0936, Until Thu08/24/24 at 1545, For 24 hours, Do not flush if lock, PICC, or central line not in place; IV infusing or unable to flush.Indications:Malignant neoplasm of sigmoid colon (HCC),Encounter for antineoplastic chemotherapy Given 08/24/2024 10:48 AM EDT 500 Units NSS infusion Intravenous, at 50 mL/hr, PRN, Starting on Thu08/24/24 at 1045, Until Thu08/24/24 at 1545, Maintenance lineIndications:Malignant neoplasm of sigmoid colon (HCC),Encounter for antineoplastic chemotherapy Start Infusion 08/24/2024 10:11 AM EDT 50 mL/hr sodium chloride 0.9 % flush central line 10 mL 10 mL, IV Push, PRN Other, IV Flush, Starting on Thu08/24/24 at 0936, Until Thu08/24/24 at 1545, For 24 hours, Do not flush if lock, PICC, or central line not in place; IV infusing or unable to flush.Indications:Malignant neoplasm of sigmoid colon (HCC),Encounter for antineoplastic chemotherapy Given 08/24/2024 10:47 AM EDT 10 mL documented in this encounter Care Teams Coat Tailor Relationship Specialty Start Date End Date Buddy Patel III, MD [address] [place] [address] PCP - General Family Medicine 04/29/23 documented as of this encounter
--- OUTSIDE RECORDS SUMMARY | 2024-10-25 00:54 | External Medical Summary | Summary of Care ---
Author Name Unknown Organization [facility] Address [address] [place] [address] Phone [phone] Care Team Providers Care Home Restoration Service Cleaner Name Role Phone Amanda BROWN MD, Buddy Britton Primary Care Provider [phone] Reason for Visit * Reason Comments Outpatient Testing Encounter Details Date Type Department Care Team (Late st Contact Info) Description 09/21/2024 9:00 AM EST Laboratory Laboratory [facility] [address] [place] [address] [facility] [address] [place] [id number] Metastatic colon cancer to liver (HCC); Malignant neoplasm of sigmoid colon (HCC) Allergies No known active allergiesdocumented as of this encounter (statuses as of 09/21/2024) Medications Medication Sig Dispensed Refills Start Date End Date Status Dicyclomine HCl 10 MG Oral Capsule (Bentyl) Take 1 Capsule by mouth 4 times a day as needed for Pain. For abdominal pain 8 Capsule 11 08/07/2023 Active Atenolol 50 MG Oral Tablet (Tenormin) Take 1 Tablet by mouth in the morning. 90 Tablet 3 11/25/2023 Active Polyethylene Glycol 3350 17 GM/SCOOP Oral Powder (Miralax) Take 17 g by mouth in the morning. 255 g 6 11/25/2023 Active Sennosides 8.6 MG Oral Tablet (Senokot) Take 1 Tablet by mouth in the morning and 1 Tablet before bedtime. 60 Tablet 6 11/25/2023 Active Fluticasone Propionate 50 MCG/ACT Nasal Suspension (Flonase) Administer 2 Sprays into each nostril in the morning. [place] hand to apply. 16 g 3 11/25/2023 Active Clindamycin Phosphate 1 % External SolutionIndications :Acneiform rash Apply topically to affected area 2 times a day. Apply to rash on face. 30 mL 06/27/2024 Active Trifluridine-Tipira cil 15-6.14 MG Oral Tablet (Lonsurf)Indication s:Malignant neoplasm of sigmoid colon (HCC) Take 30 mg (2 tablets) by mouth in the morning and 30 mg (2 tablets) before bedtime. Take within 1 hour of meal. On days 1-5 and 8-12 of 28 day cycle. 40 Tablet 5 08/04/2024 Active Trifluridine-Tipira cil 20-8.19 MG Oral Tablet (Lonsurf)Indication s:Malignant neoplasm of sigmoid colon (HCC) Take 40 mg (2 tablets) by mouth in the morning and 40 mg (2 tablets) before bedtime. Take within 1 hour of meal. On days 1-5 and - of 28 day cycle. 40 Tablet 5 08/04/2024 Active Potassium Chloride ER 10 MEQ Oral Tablet Extended ReleaseIndications: Metastatic colon cancer to liver (HCC) TAKE 1 TABLET BY MOUTH IN THE MORNING 30 Tablet 09/01/2024 Active ALPRAZolam 1 MG Oral Tablet (xaNAX) 1 tablet at bedtime as needed for sleep 30 Tablet 1 09/05/2024 Active HYDROcodone-Acetami nophen 7.5-325 MG Oral TabletIndications:M alignant neoplasm of sigmoid colon (HCC) Take 1 Tablet by mouth every 6 hours as needed for Pain, Severe. 120 Tablet 09/05/2024 Active oxyCODONE HCl 5 MG Oral Tablet (Oxy IR)Indications:Clarice gnant neoplasm of sigmoid colon (HCC) Take 1 Tablet by mouth every 6 hours as needed for Pain, Severe. 120 Tablet 09/05/2024 Active Ondansetron HCl 8 MG Oral Tablet (Zofran)Indications :Malignant neoplasm of sigmoid colon (HCC) Take 1 Tablet by mouth every 8 hours as needed for Nausea. 30 Tablet 2 09/08/2024 Active documented as of this encounter (statuses as of 09/21/2024) Active Problems Problem Noted Date Diagnosed Date Encounter for antineoplastic chemotherapy 2023 Metastatic colon cancer to liver 11/25/2023 Protein-calorie malnutrition 08/07/2023 Malignant neoplasm of sigmoid colon 04/22/2023 Encounter for antineoplastic chemotherapy 2022 documented as of this encounter (statuses as of 09/21/2024) Immunizations Name Administration Dates Next Due Pneumococcal [...] Recorded Sex Assigned at Not on file Gender Identity Not on file Sexual Orientation Not on file Job Start Date Occupation Industry Not on file Not on file Not on file documented as of this encounter Plan of Treatment Upcoming Encounters Date Type Department Care Team (Late st Contact Info) Description 09/21/2024 9:30 AM EST Pharmacy Pharmacy Hematology Oncology [facility] [address] [place] [address] [facility], [facility] Hem/Onc [address] [place] [address] 09/21/2024 9:30 AM EST Office Visit Hematology/On[facility] [address] [place] [address] Yanet Berg MD [address] [place] [address] Arrived 09/21/2024 10:15 AM EST Hem/Onc Treatment Hematology/Oncology Treatment, [place] [address] [place] [address] Park, Chair 8 Hem Onc [facility] [address] [facility] [place], [place] [address] Arrived 10/05/2024 9:30 AM EST Office Visit Hematology/Oncology [facility] [place] [address] [place] [phone] Yanet Berg MD [address] [facility] [place], [place] [address] 10/27/2024 7:40 AM EST Office Visit Family Practice [facility] [place] [address] [place], [place] [address] Buddy Patel III, MD [address] [facility] [place], [place] [address] Pending Results Name Type Priority Associated Diagnoses Date /Time CBC WITH WBC DIFFERENTIAL Lab STAT Metastatic colon cancer to liver (HCC) Malignant neoplasm of sigmoid colon (HCC) 09/21/2024 8:49 AM EST COMPREHENSIVE METABOLIC PANEL Lab STAT Metastatic colon cancer to liver (HCC) Malignant neoplasm of sigmoid colon (HCC) 09/21/2024 8:49 AM EST CBC Lab STAT Metastatic colon cancer to liver (HCC) Malignant neoplasm of sigmoid colon (HCC) 09/21/2024 8:49 AM EST DIFFERENTIAL, AUTOMATED Lab STAT Metastatic colon cancer to liver (HCC) Malignant neoplasm of sigmoid colon (HCC) 09/21/2024 8:49 AM EST Health Maintenance Due Date Last Done Comments COVID-19 Vaccine (#1) 1968 HIV Screening 1978 Hepatitis C Screening 1981 DTap/Tdap Vaccines (1 - Tdap) 1982 Zoster Vaccines (1 of 2) 1982 Cologuard 2008 Fecal Occult Blood Test 2008 Sigmoidoscopy 2008 Influenza Vaccine (FLU shot) (#1) 2024 Depression Screening 08/07/2024 08/07/2023 Diabetes Screening 09/07/2027 09/07/2024, 1 , 08/10/2024, Additional history exists Lipid Panel 12/01/2028 12/01/2023, [...] this encounter Medical Devices Implanted Type Area Compressed Gas Equipment Mechanic Device Identifier Shelf Expiration Date Model / Serial / Lot Port Implant W/8f Poly Cath - [id number] Implanted:Qty : 1 on 05/06/2023 by Leonardo Castro, at OR [facility] Right: Chest CR BARD : PERIPHERAL VASCULAR [id number] 07/16/2024 [id number] / / [id number] documented as of this encounter Procedures Procedure Name Priority Date/Time Associated Diagnosis Comments URINALYSIS, REFLEX TO MICROSCOPIC STAT 09/21/2024 8:49 AM EST Metastatic colon cancer to liver (HCC) Malignant neoplasm of sigmoid colon (HCC) documented in this encounter Results * (ABNORMAL) URINALYSIS, REFLEX TO MICROSCOPIC (09/21/2024 8:49 AM EST) Color, Urine Yellow Light Yellow, Yellow, Dark Yellow 09/21/2024 8:59 AM EST [facility] Clarity, Urine Clear Clear 09/21/2024 8:59 AM EST [facility] Glucose, Urine Negative Negative mg/dL 09/21/2024 8:59 AM EST [facility]02 Bilirubin, Urine Negative Negative 09/21/2024 8:59 AM EST [facility]02 Ketone, Urine Negative Negative mg/dL 09/21/2024 8:59 AM EST [facility] Specific [place], Urine 1.015 1.003 - 1.030 09/21/2024 8:59 AM [facility] Blood, Urine Negative Negative 09/21/2024 8:59 AM [facility] 56 pH, Urine 7.0 5.0 - 7.5 Units 09/21/2024 8:59 AM EST [facility] 56 Protein, Urine Negative Negative mg/dL 09/21/2024 8:59 AM [facility] Urobilinogen, Urine 4.0(A) 0.2, 1.0 mg/dL 09/21/2024 8:59 AM [facility] 56 Nitrite, Urine Negative Negative 09/21/2024 8:59 AM [facility] Esterase, Urine Negative Negative 8:59 AM [facility] 56 Comment, Urine 09/21/2024 8:59 AM [facility] 56 Comment:Screen negative - Mi croscopic not performed. Urine Non-blood Collection / Unknown 09/21/2024 8:49 AM EST 09/21/2024 8:49 AM EST Yanet Berg MD LAB URINE ORDERA BLES [facility] [address] documented in this encounter Visit Diagnoses Diagnosis Metastatic colon cancer to liver (HCC) Malignant neoplasm of colon, unspecified site Malignant neoplasm of sigmoid colon (HCC) Malignant neoplasm of sigmoid colon documented in this encounter Care Teams Home Restoration Service Cleaner Relationship Specialty Start Date End Date Buddy Patel III, MD [address] [facility] [address] PCP - General Family Medicine 04/29/23 documented as of this encounter
--- OUTSIDE RECORDS SUMMARY | 2024-10-25 00:54 | External Medical Summary ---
Author Name Unknown Address Unknown Organization K[facility] [place] [address] Laboratory Report Ordering Provider Test Date Status TEJAS TORRES 10/05/2024 07:26:51 Final Observation Date Value Abnormality Reference (Units ) Status SYNC LEUKOCYTES IN BLOOD BY AUTOMATED COUNT 10/05/2024 07:26:51 3.46 Below low normal 4.00-10.80 (K/uL) Final Segs 10/05/2024 07:26:51 48.0 40.0-75.0 (%) Final Lymphs % 10/05/2024 07:26:51 29.2 18.0-42.0 (%) Final Monos 10/05/2024 07:26:51 20.5 Above high normal 1.0-11.0 (%) Final Eosinophils 10/05/2024 07:26:51 1.7 0.0-6.0 (%) Final Basos 10/05/2024 07:26:51 0.6 0.0-2.0 (%) Final Absolute Segs 10/05/2024 07:26:51 1.66 Below low normal 1.80-7.70 (K/uL) Final Lymphs, absolute 10/05/2024 07:26:51 1.01 1.00-4.80 (K/ul) Final Monos, Abs 10/05/2024 07:26:51 0.71 0.00-1.10 (K/uL) Final Eos, Abs 10/05/2024 07:26:51 0.06 0.00-0.70 (K/uL) Final Basos, Abs 10/05/2024 07:26:51 0.02 0.00-0.20 (K/uL) Final Performing Location [facility] [place] [address]
--- OUTSIDE RECORDS SUMMARY | 2024-10-25 00:54 | External Medical Summary | Summary of Care ---
Author Name Unknown Organization [facility] Address [address] [place] [address] Phone [phone] Care Team Providers Care Development Associate Name Role Phone Amanda BROWN MD, Buddy Britton Primary Care Provider [phone] Reason for Visit * Reason Comments Outpatient Testing Encounter Details Date Type Department Care Team (Late st Contact Info) Description 10/05/2024 7:30 AM EST Laboratory Laboratory [facility] [address] [place] [address] [facility] [address] [place] [phone] Metastatic colon cancer to liver (HCC); Malignant [...] Sprays into each nostril in the morning. [place] hand to apply. 16 g 3 4 [...] 8:30 AM EST Hem/Onc Treatment Hematology/Oncology Treatment, [place] [address] [place] [phone] Verna, Chair 7 Hem Onc [facility] [address] [place] [address] 10/05/2024 9:30 AM EST Pharmacy Pharmacy Hematology Oncology [facility] [address] [place] [address] [facility], [facility] Hem/Onc [address] [place] [address] 10/19/2024 8:00 AM EST Laboratory Laboratory [facility] [place] [address] [place] [phone] Verna, Lab [facility] [address] [address] 10/19/2024 8:30 AM EST Office Visit Hematology/Oncology [facility] [place] [address] [place] [phone] Yanet Berg MD [address] [place] [address] 10/19/2024 9:00 AM EST [facility] [address] [place] [phone] Verna, Chair 1 Hem Onc [facility] [address] [facility] [place] [address] 10/27/2024 7:40 AM EST Office Visit Family Practice [facility] Verna [place] [address] [place] [address] Buddy Patel III, MD [address] [facility] [place] [address] 10/31/2024 8:30 AM EST Imaging Radiology [address], [place] [address] [facility] [place] [address] Pending Results Name Type Priority Associated Diagnoses [...] this encounter Medical Devices Implanted Type Area Mortician Helper Device Identifier Shelf Expiration Date Model / Serial / Lot Port Implant W/8f Poly Cath - [id number] Implanted:Qty : 1 on 05/06/2023 by Leonardo Castro, at OR [facility] Right: Chest CR BARD : PERIPHERAL VASCULAR [id number] 07/16/2024 [id number] / / [id number] documented as of this encounter Visit Diagnoses Diagnosis Metastatic colon cancer to liver (HCC) Malignant neoplasm of colon, unspecified site Malignant neoplasm of sigmoid colon (HCC) Malignant neoplasm of sigmoid colon documented in this encounter Care Teams Development Associate Relationship Specialty Start Date End Date Buddy Patel III, MD 200 [place] [address] PCP - General Family Medicine 04/29/23 documented as of this encounter
--- OUTSIDE RECORDS SUMMARY | 2024-10-25 00:54 | External Medical Summary | Summary of Care ---
Author Name Unknown Organization [facility] Address [address] [place] [address] Phone [phone] Care Team Providers Care Material Handling Equipment Stevedore Name Role Phone Amanda BROWN MD, Buddy Britton Primary Care Provider [phone] Reason for Visit * Reason Comments Chemotherapy C1 D 15 Zirabev * Episode Based Medications (Routine) - Authorized Specialty Diagnoses / Procedures Referred By Yany t Referred To Contact Diagnoses Malignant neoplasm of sigmoid colon (HCC) Encounter for antineoplastic chemotherapy Procedures [place] INJ., ZIRABEV, 10 MG Yanet Berg MD [address] [place] [address], [place] [address] Phone: tel: fax: Hematology/Oncology Treatment, [address] [address] Phone: tel: fax: Referral ID Status Reason Start Date Expiration Date V isits Requested Visits Authorized [id number] Authorized 08/03/2024 11/15/2099 99 99 Encounter Details Date Type Department Care Team (Latest Contact Info) Description 08/24/2024 9:00 AM EDT Hem/Onc Treatment Hematology/Oncolog y Treatment, [address] [place] [address] Verna, Chair 3 Hem On[address] [place] [address] Malignant neoplasm of sigmoid colon (HCC)*; Encounter for antineoplastic chemotherapy Allergies No known active allergiesdocumented as of this encounter (statuses as of 09/29/2024) Medications Dicyclomine HCl 10 MG Oral Capsule (Bentyl) Take 1 Capsule by mouth 4 times a day as needed for Pain. For abdominal pain 8 Capsule 11 08/07/20 23 Active Atenolol 50 MG Oral Tablet (Tenormin) Take 1 Tablet by mouth in the morning. 90 Tablet 3 11/25/19 24 Active Polyethylene Glycol 3350 17 GM/SCOOP Oral Powder (Miralax) Take 17 g by mouth in the morning. 255 g 6 11/25/19 24 Active Sennosides 8.6 MG Oral Tablet (Senokot) Take 1 Tablet by mouth in the morning and 1 Tablet before bedtime. 60 Tablet 6 11/25/19 24 Active Fluticasone Propionate 50 MCG/ACT Nasal Suspension (Flonase) Administer 2 Sprays into each nostril in the morning. [place] hand to apply. 16 g 3 11/25/19 24 Active Clindamycin Phosphate 1 % External SolutionIndica tions:Acneifor m rash Apply topically to affected area 2 times a day. Apply to rash on face. 30 mL 06/27/20 24 Active Trifluridine-T ipiracil 15-6.14 MG Oral Tablet (Lonsurf)Indic ations:Maligna nt neoplasm of sigmoid colon (HCC) Take 30 mg (2 tablets) by mouth in the morning and 30 mg (2 tablets) before bedtime. Take within 1 hour of meal. On days 1- and - of day cycle. 40 Tablet 5 4 12:58 PM EDT 08/04/20 24 Active Trifluridine-T ipiracil 20-8.19 MG Oral Tablet [...] for Nausea. 30 Tablet 2 05/10/20 24 024 Discontinued(Re fill) ALPRAZolam 1 MG Oral Tablet (xaNAX) 1 tablet at bedtime as needed for sleep 30 Tablet 1 07/04/20 24 024 Discontinued(Re fill) Potassium Chloride ER 10 MEQ Oral Tablet Extended ReleaseIndicat ions:Metastati c colon cancer to liver (HCC) Take 1 Tablet by mouth in the morning. 30 Tablet 08/03/20 24 024 Discontinued HYDROcodone-Ac etaminophen 7.5-325 MG Oral TabletIndicati ons:Malignant [...] Patient offers no acute complaints. Chemotherapy/Immunotherapy agents: ZIRABEV Consent for chemotherapy drug [...] Description 10/05/2024 7:30 AM EST Laboratory Laboratory [facility] [place] [address] [place] [phone] [place], Lab Scenery [address] [place] [address] 10/05/2024 8:30 AM EST Hem/Onc Treatment Hematology/Oncology Treatment, [place] [address] [place] [phone] Park, Chair 7 Hem Onc [place] [address] [place] [address] 10/05/2024 9:30 AM EST Pharmacy Pharmacy Hematology Oncology [facility] [address] [place] [address] [facility], [facility] Hem/Onc [address] [place] [address] 10/19/2024 8:00 AM EST Laboratory Laboratory [facility] [place] [address] [place] [phone] Verna, Lab [facility] 200 [facility] [place] [address] 10/19/2024 8:30 AM EST Office Visit Hematology/Oncology [facility] [place] [address] [place] [phone] Yanet Berg MD 200 [facility] [place] [address] 10/19/2024 9:00 AM EST Hem/Onc Treatment Hematology/Oncology Treatment, [place] [address] [place], [place] [phone] Verna, Chair 1 Hem Onc [facility] [address] [facility] [place], [place] [address] 10/27/2024 7:40 AM EST Office Visit Family Practice [facility] Verna [place] [address] [place] [address] Buddy Patel III, MD 200 [facility] [place], [place] [address] 10/31/2024 8:30 AM EST Imaging Radiology [facility] 1st [facility] [place] [address] [facility] [place] [phone] Health Maintenance Due Date Last Done Comments [...] this encounter Medical Devices Implanted Type Area Systems Test Engineer Device Identifier Shelf Expiration Date Model / Serial / Lot Port Implant W/8f Poly Cath - [id number] Implanted:Qty : 1 on 05/06/2023 by Leonardo Castro DO at OR [facility] Right: Chest CR BARD : PERIPHERAL VASCULAR [id number] 07/16/2024 [id number] / / [id number] documented as of this encounter Visit Diagnoses [...] mL documented in this encounter Care Teams Material Handling Equipment Stevedore Relationship Specialty Start Date End Date Buddy Patel III, MD [address] [place] [address] PCP - General Family Medicine 04/29/23 documented as of this encounter
--- OUTSIDE RECORDS SUMMARY | 2024-10-25 00:54 | External Medical Summary | Summary of Care ---
Author Name Unknown Organization [facility] Address [address] [place] [address] Phone [phone] Care Team Providers Care Business Unit Leader Name Role Phone Amanda BROWN MD, Buddy Britton Primary Care Provider [phone] Reason for Visit * Reason Comments Chemotherapy zirabev * Episode Based Medications (Routine) - Authorized Specialty Diagnoses / Procedures Referred By Yany t Referred To Contact Diagnoses Malignant neoplasm of sigmoid colon (HCC) Encounter for antineoplastic chemotherapy Procedures [place] INJ., ZIRABEV, 10 MG Yanet Berg MD [address] [place] [address], [place] [address] Phone: tel: fax: Hematology/Oncology Treatment, [address] [address] Phone: tel: fax: Referral ID Status Reason Start Date Expiration Date V isits Requested Visits Authorized [id number] Authorized 08/03/2024 11/15/2099 99 99 Encounter Details Date Type Department Care Team (Latest Contact Info) Description 09/07/2024 10:30 AM EDT Hem/Onc Treatment Hematology/Oncolog y Treatment, [address] [place] [address] Verna, Chair 1 Hem Onc [address] [place] [address] Malignant neoplasm of sigmoid colon (HCC)*; Encounter for antineoplastic chemotherapy Allergies No known active allergiesdocumented as of this encounter (statuses as of 09/26/2024) Medications Dicyclomine HCl 10 MG Oral Capsule (Bentyl) Take 1 Capsule by mouth 4 times a day as needed for Pain. For abdominal pain 8 Capsule 11 3 Active Atenolol 50 MG Oral Tablet (Tenormin) [...] Sprays into each nostril in the morning. [place] hand to apply. 16 g 3 4 Active Clindamycin Phosphate 1 % External SolutionIndica tions:Acneifor m rash Apply topically to affected area 2 times a day. Apply to rash on face. 30 mL 4 Active Trifluridine-T ipiracil 15-6.14 MG Oral Tablet (Lonsurf)Indic ations:Maligna nt neoplasm of sigmoid colon (HCC) Take 30 mg (2 tablets) by mouth in the morning and 30 mg (2 tablets) before bedtime. Take within 1 hour of meal. On days 1- and - of 28 day cycle. 40 Tablet 5 09/02/2024 12:58 PM EDT 4 Active Trifluridine-T ipiracil 20-8.19 MG Oral Tablet (Lonsurf)Indic ations:Maligna nt neoplasm of sigmoid colon (HCC) Take 40 mg (2 tablets) by mouth in the morning and 40 mg (2 tablets) before bedtime. Take within 1 hour of meal. On days 1-5 and - of 28 day cycle. 40 Tablet 5 09/02/2024 12:58 PM EDT 4 Active Potassium Chloride ER 10 MEQ [...] needed for Nausea. 30 Tablet 2 4 09/08/20 24 Discontinu ed(Refill) documented as of this encounter (statuses as of 09/26/2024) Active Problems Problem Noted Date Diagnosed Date Encounter for antineoplastic chemotherapy 2023 Metastatic colon cancer to liver 11/25/2023 Protein-calorie malnutrition 08/07/2023 Malignant neoplasm of sigmoid colon 04/22/2023 Encounter for antineoplastic chemotherapy 2022 documented as of this encounter (statuses as of 09/26/2024) Immunizations Name Administration Dates Next Due Pneumococcal [...] as of this encounter Nursing Notes * Patricia Bullard RN - 09/07/2024 12:55 PM EDT Infusion complete. Patient tolerated well. No complaints. VAD flushed with 10 ml NSS and Heparin 5 ml (100 units/ml). Vazquez needle removed intact. Dry dressing applied. Goals: Patient will remain free from injury. Possible barriers to meeting goals: IV pump/IV tubing Stability of the patient: Moderately stable - low risk of patient condition declining or worsening Summary regarding today's goals: Met: Patient remained free from injury/harm during treatment. Patient left facility in stable condition. * Patricia Bullard RN - 09/07/2024 12:51 PM EDT Chair 12. Patient here for zirabev infusion. Patient with no complaints. VAD accessed without difficulty, + blood return noted. flushed with 10 ml NSS and dressing applied. Chemotherapy/Immunotherapy agents: ZIRABEV Consent for chemotherapy drug treatment complete, dated, and signed? yes, date - 08/03/24 Treatment lab parameters met? Yes Has treatment weight changed > than 10%? No Treatment preauthorized? Yes VITALS Filed Vitals: Urine protein: NO Patient education completed for treatment? Yes Blood transfusion consent signed and complete? NA Return appointment scheduled? Yes Patient had provider visit today? Yes - Ok to release order and treat per provider Functional Status: Functional status at today's visit: [...] potential goodwin while using the heat function. Safety and Risk for Injury Patient will remain free from injury. Ensure appropriate safety devices are available. Provide and maintain safe environment. documented in this encounter Plan of Treatment Upcoming Encounters Date Type Department Care Team (Late st Contact Info) Description 10/05/2024 7:30 AM EST Laboratory Laboratory [facility] [place] [address] [place] [address] Verna Lab Scenery [address] [place] [address] 10/05/2024 8:30 AM EST Hem/Onc Treatment Hematology/Oncology Treatment, [place] [address] [place] [address] Verna, Chair 7 Hem Onc [address] [place] [address] 10/05/2024 9:30 AM EST Pharmacy Pharmacy Hematology Oncology [address] [address] [facility], [facility] Hem/Onc [facility] [place] [address] 10/19/2024 8:00 AM EST Laboratory Laboratory [facility] Verna [place] [address] [place] [address] Verna Lab Scenery [address] [place] [address] 10/19/2024 8:30 AM EST Office Visit Hematology/Oncology [facility] Elmer Gillespie [address] [place] [address] Yanet Berg MD [address] [place] [address] 10/19/2024 9:00 AM EST Hem/Onc Treatment Hematology/Oncology Treatment, [place] [address] [place] [address] Verna, Chair 1 Hem Onc [facility] [address] [facility] [place] [address] 10/27/2024 7:40 AM EST Office Visit Family Practice [facility] [place] 200 [facility] [place] [address] Buddy Patel III, MD [address] [facility] [place] [address] 10/31/2024 8:30 AM EST Imaging Radiology [facility], [place] [address] [employer] [place] [address] Health Maintenance Due Date Last Done Comments [...] this encounter Medical Devices Implanted Type Area Director Of Math Device Identifier Shelf Expiration Date Model / Serial / Lot Port Implant W/8f Poly Cath - [id number] Implanted:Qty : 1 on 05/06/2023 by Leonardo Castro DO at OR [facility] Right: Chest CR BARD : PERIPHERAL VASCULAR [id number] 07/16/2024 [id number] / / [id number] documented as of this encounter Visit Diagnoses [...] weight), IV Piggyback, ONCE, 1 dose, On Thu09/07/24 at 1215, Administer over 30 MinutesIndications:Malignan t neoplasm of sigmoid colon (HCC),Encounter for antineoplastic chemotherapy Start Infusion 09/07/2024 11:50 AM EDT 400 mg 210 mL/hr hEParin 100 UNIT/ML Lock Flush inj 500 Units 500 Units (5 mL), IV Lock, PRN Other, IV Flush, Starting on Thu09/07/24 at 1034, Until Thu09/07/24 at 2221, For 24 hours, Do not flush if lock, PICC, or central line not in place; IV infusing or unable to flush.Indications:Malignant neoplasm of sigmoid colon (HCC),Encounter for antineoplastic chemotherapy Given 09/07/2024 12:28 PM EDT 500 Units NSS infusion Intravenous, at 50 mL/hr, PRN, Starting on Thu09/07/24 at 1145, Until Thu09/07/24 at 2221, Maintenance lineIndications:Malignant neoplasm of sigmoid colon (HCC),Encounter for antineoplastic chemotherapy Start Infusion 09/07/2024 10:41 AM EDT 50 mL/hr sodium chloride 0.9 % flush central line 10 mL 10 mL, IV Push, PRN Other, IV Flush, Starting on Thu09/07/24 at 1034, Until Thu09/07/24 at 2221, For 24 hours, Do not flush if lock, PICC, or central line not in place; IV infusing or unable to flush.Indications:Malignant neoplasm of sigmoid colon (HCC),Encounter for antineoplastic chemotherapy Given 09/07/2024 12:28 PM EDT 10 mL documented in this encounter Care Teams Business Unit Leader Relationship Specialty Start Date End Date Buddy Patel III, MD [address] [place] [address] PCP - General Family Medicine 04/29/23 documented as of this encounter
--- OUTSIDE RECORDS SUMMARY | 2024-10-25 00:54 | External Medical Summary ---
Author Name Unknown Address Unknown Organization K09:[facility] [address] Laboratory Report Ordering Provider Test Date Status TEJAS TORRES 10/05/2024 07:33:34 Final Observation Date Value Abnormality Reference (Units ) Status Color of Urine by Auto 10/05/2024 07:33:34 Yellow Light Yellow, Yellow, Dark Yellow Final Clarity, Urine 10/05/2024 07:33:34 Clear Clear Final Glucose [Mass/volume] in Urine by Automated test strip 10/05/2024 07:33:34 Negative Negative (mg/dL) Final Bilirubin.total [Presence] in Urine by Automated test strip 10/05/2024 07:33:34 Negative Negative Final Ketones [Mass/volume] in Urine by Automated test strip 10/05/2024 07:33:34 Negative Negative (mg/dL) Final Specific gravity, Urine 10/05/2024 07:33:34 1.010 1.003-1.030 Final Hemoglobin [Presence] in Urine by Automated test strip 10/05/2024 07:33:34 Negative Negative Final pH, Urine 10/05/2024 07:33:34 6.5 5.0-7.5 (Units) Final Protein [Mass/volume] in Urine by Automated test strip 10/05/2024 07:33:34 Negative Negative (mg/dL) Final Urobilinogen [Mass/volume] in Urine by Automated test strip 10/05/2024 07:33:34 0.2 0.2, 1.0 (mg/dL) Final Nitrite [Presence] in Urine by Automated test strip 10/05/2024 07:33:34 Negative Negative Final Leukocyte esterase [Presence] in Urine by Automated test strip 10/05/2024 07:33:34 Negative Negative Final Annotation Comment 10/05/2024 07:33:34 Final Screen negative - Microscopi c not performed. Performing Location [facility] [place] [address]
--- OUTSIDE RECORDS SUMMARY | 2024-10-25 00:54 | External Medical Summary ---
Author Name Unknown Address Unknown Organization K09:[facility] [place] [address] Laboratory Report Ordering Provider Test Date Status TEJAS TORRES 10/05/2024 07:26:51 Final Observation Date Value Abnormality Reference (Units ) Status Magnesium 10/05/2024 07:26:51 2.1 1.5-2.6 (m g/dL) Final Performing Location [facility] [place] [address]
--- OUTSIDE RECORDS SUMMARY | 2024-10-25 00:54 | External Medical Summary ---
Author Name Unknown Address Unknown Organization K09:[facility] [address] [place] [address] Laboratory Report Ordering Provider Test Date Status TEJAS TORRES 10/05/2024 07:26:51 Final Observation Date Value Abnormality Reference (Units ) Status BUN 10/05/2024 07:26:51 12 6-20 (mg/dL) Final Creatinine 10/05/2024 07:26:51 0.7 0.6-1.2 (mg/dL) Final Glomerular filtration rate/1.73 sq M.predicted [Volume Rate/Area] in Serum, Plasma or Blood by Creatinine-based formula (CKD-EPI) 10/05/2024 07:26:51 >90 >=60 (mL/min) Final eGFR is calculated based on the CKD-EPI 2020 equation. Sodium 10/05/2024 07:26:51 130 Below low normal 135 -146 (mmol/L) Final Potassium 10/05/2024 07:26:51 4.3 3.5-5.1 (m mol/L) Final Cl 10/05/2024 07:26:51 96 Below low normal 98- 107 (mmol/L) Final CO2 10/05/2024 07:26:51 22 22-32 (mmo l/L) Final Anion gap 10/05/2024 07:26:51 12 7-15 (mmol /L) Final Glucose 10/05/2024 07:26:51 98 70-120 (mg /dL) Final Albumin 10/05/2024 07:26:51 3.1 Below low normal 3.8 -5.0 (g/dL) Final AST (Aspartate aminotransferase) 10/05/2024 07:26:51 19 10-50 (U/L) Fin al Alk Phos 10/05/2024 07:26:51 131 Above high normal 35 -130 (U/L) Final Bilirubin, Total 10/05/2024 07:26:51 1.1 <=1 .2 (mg/dL) Final Calcium 10/05/2024 07:26:51 9.1 8.4-10.2 ( mg/dL) Final Protein 10/05/2024 07:26:51 8.0 6.0-8.3 (g /dL) Final ALT (Alanine aminotransferase) 10/05/2024 07:26:51 <5 Below low normal 10-50 (U/L) Final Performing Location [facility] [address] [place] [address]
--- OUTSIDE RECORDS SUMMARY | 2024-10-25 00:54 | External Medical Summary | Summary of Care ---
Author Name Unknown Organization [facility] Address [address] [place] [address] Phone [phone] Care Team Providers Care Flight Attendant/Inflight Manager Name Role Phone Amanda BROWN MD, Buddy Britton Primary Care Provider [phone] Encounter Details Date Type Department Care Team (Late st Contact Info) Description 09/30/2024 Orders Only Hematology/Oncology, [facility] [address] [place] [address] Yanet Berg MD [address] [place] [address] Allergies No known active allergiesdocumented as of this encounter (statuses as of 09/30/2024) Medications Dicyclomine HCl 10 MG Oral Capsule [...] Sprays into each nostril in the morning. [place] hand to apply. 16 g 3 4 [...] as of this encounter (statuses as of 09/30/2024) Active Problems Problem Noted Date Diagnosed Date Encounter for antineoplastic chemotherapy 2023 Metastatic colon cancer to liver 11/25/2023 Protein-calorie malnutrition 08/07/2023 Malignant neoplasm of sigmoid colon 04/22/2023 Encounter for antineoplastic chemotherapy 2022 documented as of this encounter (statuses as of 09/30/2024) Immunizations Name Administration Dates Next Due Pneumococcal [...] Description 10/05/2024 7:30 AM EST Laboratory Laboratory Robin Gillespie [place] [address] [place] [phone] [address] [facility] Robin Rivero [facility] [place] [address] 10/05/2024 8:30 AM EST Hem/Onc Treatment Hematology/Oncology Treatment, [place] [address] [place] [phone] Verna, Chair 7 Hem Onc [address] [place] [address] 10/05/2024 9:30 AM EST Pharmacy Pharmacy Hematology Oncology [facility] [address] [place] [address] [facility], [facility] Hem/Onc [address] [place] [address] 10/19/2024 8:00 AM EST Laboratory Laboratory [facility] Verna [place] [address] [place] [phone] Verna, Lab [address] [place] [address] 10/19/2024 8:30 AM EST Office Visit Hematology/Oncology [facility] [place] [address] [place] [phone] Yanet Berg MD [address] [place] [address] 10/19/2024 9:00 AM EST [facility] [address] [facility] [place] [phone] Verna, Chair 1 Hem Onc [address] [place], [place] [address] 10/27/2024 7:40 AM EST Office Visit Family Practice [facility] Verna [place] [address] [place] [address] Buddy Patel III, MD [address] [facility] [place] [address] 10/31/2024 8:30 AM EST Imaging Radiology [address], [place] 132 [facility] [place] [address] Health Maintenance Due Date Last Done Comments [...] this encounter Medical Devices Implanted Type Area Distillery Supervisor Device Identifier Shelf Expiration Date Model / Serial / Lot Port Implant W/8f Poly Cath - [id number] Implanted:Qty : 1 on 05/06/2023 by Leonardo Castro, at OR [facility] Right: Chest CR BARD : PERIPHERAL VASCULAR [id number] 07/16/2024 [id number] / / [id number] documented as of this encounter Care Teams Flight Attendant/Inflight Manager Relationship Specialty Start Date End Date Buddy Patel III, MD [address] [facility] [place] [address] PCP - General Family Medicine 04/29/23 documented as of this encounter
--- OUTSIDE RECORDS SUMMARY | 2024-10-25 00:54 | External Medical Summary | Summary of Care ---
Author Name Unknown Organization [facility] Address [address] [place] [address] Phone [phone] Care Team Providers Care Portfolio Lead Name Role Phone Amanda BROWN MD, Buddy Britton Primary Care Provider [phone] Reason for Visit * Reason Comments Chemotherapy zirabev * Episode Based Medications (Routine) - Authorized Specialty Diagnoses / Procedures Referred By Yany t Referred To Contact Diagnoses Malignant neoplasm of sigmoid colon (HCC) Encounter for antineoplastic chemotherapy Procedures [place] INJ., ZIRABEV, 10 MG Yanet Berg MD [address] [place] [address], [place] [address] Phone: tel: fax: Hematology/Oncology Treatment, [address] [address] Phone: tel: fax: Referral ID Status Reason Start Date Expiration Date V isits Requested Visits Authorized [id number] Authorized 08/03/2024 11/15/2099 99 99 Encounter Details Date Type Department Care Team (Latest Contact Info) Description 09/07/2024 10:30 AM EDT Hem/Onc Treatment Hematology/Oncolog y Treatment, [address] [place] [address] Verna, Chair 1 Hem Onc [address] [place] [address] Malignant neoplasm of sigmoid colon (HCC)*; [...] Sprays into each nostril in the morning. [place] hand to apply. 16 g 3 4 [...] Description 10/05/2024 7:30 AM EST Laboratory Laboratory [facility] [place] [address] [place] [address] Verna Lab Scenery [address] [place] [address] 10/05/2024 8:30 AM EST Hem/Onc Treatment Hematology/Oncology Treatment, [place] [address] [place] [address] Verna, Chair 7 Hem Onc Scen[address] [place] [address] 10/05/2024 9:30 AM EST Pharmacy Pharmacy Hematology Oncology [address] [address] [facility], [facility] Hem/[place]c [place] [address] 10/19/2024 8:00 AM EST Laboratory Laboratory [facility] Verna [place] [address] [place] [address] Verna Lab Scenery [address] [place] [address] 10/19/2024 8:30 AM EST Office Visit Hematology/Oncology [facility] Elmer Gillespie [address] [place] [phone] Yanet Berg MD [address] [place] [address] 10/19/2024 9:00 AM EST Hem/Onc Treatment Hematology/Oncology Treatment, [place] [address] [place], [place] [address] Verna, Chair 1 Hem Onc [facility] [address] [facility] [place] [address] 10/27/2024 7:40 AM EST Office Visit Family Practice [facility] [place] [address] [facility] [place] [address] Buddy Patel III, MD 200 [facility] [place] [address] 10/31/2024 8:30 AM EST Imaging Radiology [facility] [place] [address] [facility] [place] [address] Health Maintenance Due Date Last Done Comments [...] this encounter Medical Devices Implanted Type Area Anodic Treater Device Identifier Shelf Expiration Date Model / Serial / Lot Port Implant W/8f Poly Cath - [id number] Implanted:Qty : 1 on 05/06/2023 by Leonardo Castro DO at OR [facility] Right: Chest CR BARD : PERIPHERAL VASCULAR [id number] 07/16/2024 [id number] / / [id number] documented as of this encounter Visit Diagnoses [...] mL documented in this encounter Care Teams Portfolio Lead Relationship Specialty Start Date End Date Buddy Patel III, MD [address] [place] [address] PCP - General Family Medicine 04/29/23 documented as of this encounter
--- OUTSIDE RECORDS SUMMARY | 2024-10-25 00:54 | External Medical Summary | Summary of Care ---
Author Name Unknown Organization [facility] Address [address] [place] [address] Phone [phone] Care Team Providers Care Nanoscience Technician Name Role Phone Amanda BROWN MD, Buddy Britton Primary Care Provider [phone] Reason for Visit * Reason Comments Chemotherapy Zirabev * Episode Based Medications (Routine) - Authorized Specialty Diagnoses / Procedures Referred By Yany t Referred To Contact Diagnoses Malignant neoplasm of sigmoid colon (HCC) Encounter for antineoplastic chemotherapy Procedures OH INJ., ZIRABEV, 10 MG Yanet Berg MD [address] [place] [id number] Anc Hem/Onc [address] [address] Referral ID Status Reason Start Date Expiration Date V isits Requested Visits Authorized [id number] Authorized 08/03/2024 11/15/2099 99 99 Encounter Details Date Type Department Care Team (Latest Contact Info) Description 09/21/2024 10:15 AM EST Hem/Onc Treatment Hematology/Oncolog y Treatment, [address] [address] Verna, Chair 8 Hem Onc [address] [address] Malignant neoplasm of sigmoid colon (HCC)*; Encounter for antineoplastic chemotherapy Allergies No known active allergiesdocumented as of this encounter (statuses as of 09/21/2024) Medications Medication Sig Dispensed Refills Start Date End Date Status Dicyclomine HCl 10 MG Oral Capsule (Bentyl) Take 1 Capsule by mouth 4 times a day as needed for Pain. For abdominal pain 8 Capsule 11 08/07/2023 Active Additional Information Patient not taking.Reported on 09/21/2024 Atenolol 50 MG Oral Tablet (Tenormin) Take 1 Tablet by mouth in the morning. 90 Tablet 3 11/25/2023 Active Polyethylene Glycol 3350 17 GM/SCOOP Oral Powder (Miralax) Take 17 g by mouth in the morning. 255 g 11/25/2023 Active Sennosides 8.6 MG Oral Tablet (Senokot) Take 1 Tablet by mouth in the morning and 1 Tablet before bedtime. 60 Tablet 6 11/25/2023 Active Fluticasone Propionate 50 MCG/ACT Nasal Suspension (Flonase) Administer 2 Sprays into each nostril in the morning. [place] hand to apply. 16 g 3 11/25/2023 Active Additional Information Patient not taking.Reported on 09/21/2024 Clindamycin Phosphate 1 % External SolutionIndication s:Acneiform rash Apply topically to affected area 2 times a day. Apply to rash on face. 30 mL 06/27/2024 Active Additional Information Patient not taking.Reported on 09/21/2024 Trifluridine-Tipir acil 15-6.14 MG Oral Tablet (Lonsurf)Indicatio ns:Malignant neoplasm of sigmoid colon (HCC) Take 30 mg (2 tablets) by mouth in the morning and 30 mg (2 tablets) before bedtime. Take within 1 hour of meal. On days 1-5 and 8- of 28 day cycle. 40 Tablet 5 08/04/2024 Active Trifluridine-Tipir acil 20-8.19 MG Oral Tablet (Lonsurf)Indicatio ns:Malignant neoplasm of sigmoid colon (HCC) Take 40 mg (2 tablets) by mouth in the morning and 40 mg (2 tablets) before bedtime. Take within 1 hour of meal. On days 1-5 and 8- of 28 day cycle. 40 Tablet 5 08/04/2024 Active Potassium Chloride ER 10 MEQ Oral Tablet Extended ReleaseIndications :Metastatic colon cancer to liver (HCC) TAKE 1 TABLET BY MOUTH IN THE MORNING 30 Tablet 09/01/2024 Active ALPRAZolam 1 MG Oral Tablet (xaNAX) 1 tablet at bedtime as needed for sleep 30 Tablet 1 09/05/2024 Active HYDROcodone-Acetam inophen 7.5-325 MG Oral TabletIndications: Malignant neoplasm of sigmoid colon (HCC) Take 1 Tablet by mouth every 6 hours as needed for Pain, Severe. 120 Tablet 09/05/2024 Active oxyCODONE HCl 5 MG Oral Tablet (Oxy IR)Indications:Mal ignant neoplasm of sigmoid colon (HCC) Take 1 Tablet by mouth every 6 hours as needed for Pain, Severe. 120 Tablet 09/05/2024 Active Ondansetron HCl 8 MG Oral Tablet (Zofran)Indication s:Malignant neoplasm of sigmoid colon (HCC) Take [...] as of this encounter Nursing Notes * Nicholas Anders RN - 09/21/2024 11:43 AM EST Infusion completed without issues. VAD flushed with NSS/Heparin per orders. VAD access removed without issues. Pt amublated from treatment room in stable condition. Goals: Pt will remain free from injury. Possible barriers to meeting goals: IV Chemotherapy Stability of the patient: Moderately stable - low risk of patient condition declining or worsening Summary regarding today's goals: Met: Pt remained free from injury. * Nicholas Anders RN - 09/21/2024 10:23 AM EST Chair 4. VAD accessed without issues, positive blood return noted. Fluids infusing per orders. Safety and Risk for Injury Patient will remain free from injury. Ensure appropriate safety devices are available. Provide and maintain safe environment. Patient instructed on use of heat and massage functions where applicable. Patient shown how to operate the heat function of the chair and to alert nursing staff if the chair feels too warm. Patient instructed on the risk of potential goodwin while using the heat function. Chemotherapy/Immunotherapy agents: Marcos Consent for chemotherapy drug treatment complete, dated, and signed? Yes 08/03/24 Treatment lab parameters met? Yes Has treatment weight changed > than 10%? No Treatment preauthorized? Yes VITALS Filed Vitals: Urine protein: NEGATIVE Patient education completed for [...] Description 10/05/2024 7:30 AM EST Laboratory Laboratory [facility] [address] [place] [id number] Verna, Lab Scen[address] [place] [address] 10/05/2024 8:30 AM EST Hem/Onc Treatment Hematology/Oncology Treatment, [place] [address] [facility] [place] [address] Verna, Chair 7 Hem Onc Scenery [address] [place] [address] 10/19/2024 8:00 AM EST Laboratory Laboratory [facility] [place] [address] [place] [address] [place], [facility] [address] [facility] [place] [address] 10/19/2024 8:30 AM EST Office Visit Hematology/Oncology [facility] [place] [address] [place] [address] Yanet Berg MD [address] [place] [address] 10/19/2024 9:00 AM EST Hem/Onc Treatment [address]emat[address] [address] Verna, Chair 1 Hem Onc Scenery [address] [place] [address] 10/27/2024 7:40 AM EST Office Visit Family [facility] [address] [facility] [place], [place] [address] Buddy Patel III, MD [address] [place] [address] 10/31/2024 8:30 AM EST Imaging Radiology [address] [place] [address] Health Maintenance Due Date Last Done Comments [...] this encounter Medical Devices Implanted Type Area Machine Stamper Device Identifier Shelf Expiration Date Model / Serial / Lot Port Implant W/8f Poly Cath - [id number] Implanted:Qty : 1 on 05/06/2023 by Leonardo Castro, at OR [facility] Right: Chest CR BARD : PERIPHERAL VASCULAR [id number] 07/16/2024 [id number] / / [id number] documented as of this encounter Visit Diagnoses [...] ONCE PRN Other, Hypersensitivity Reaction, Starting on Thu09/21/24 at 1003, Until Marcela 09/22/24 at 1002, For 24 hours EPINEPHrine 1 MG/ML inj 0.3 mg 0.3 mg, Intramuscular, ONCE PRN Other, Hypersensitivity Reaction or Anaphylaxis, Starting on Thu09/21/24 at 1003, Until Marcela 09/22/24 at 1002, For 24 hours hEParin 100 UNIT/ML Lock Flush inj 500 Units 500 Units (5 mL), IV Lock, PRN Other, IV Flush, Starting on Thu09/21/24 at 1003, Until Marcela 09/22/24 at 1002, For 24 hours, Do not flush if lock, PICC, or central line not in place; IV infusing or unable to flush. Given 09/21/2024 11:38 AM EST 500 Units Hydrocortisone Sod Suc (PF) (Solu-Cortef) inj 100 mg 100 mg, IV Push, ONCE PRN Other, Hypersensitivity Reaction, Starting on Thu09/21/24 at 1003, Until Marcela 09/22/24 at 1002, For 24 hours NSS infusion Intravenous, at 50 mL/hr, PRN, Starting on Thu09/21/24 at 1115, Until Discontinued, Maintenance line Start Infusion 09/21/2024 10:19 AM EST 50 mL/hr oxygen GAS Inhalation, OXYGEN, First dose on Thu09/21/24 at 1045, Until Discontinued, Device/Managed by: Low Flow Device, [...] saturation is greater than or equal to 93% sodium chloride 0.9 % flush central line 10 mL 10 mL, IV Push, PRN Other, IV Flush, Starting on Thu09/21/24 at 1003, Until Marcela 09/22/24 at 1002, For 24 hours, Do not flush if lock, PICC, or central line not in place; IV infusing or unable to flush. Given 09/21/2024 11:38 AM EST 10 mL Inactive Administered Medications - up to 3 most recent administrations Medication Order MAR Action Action Date Dose Rate Site bevaCIZumab-bvzr (Zirabev) 400 mg in NSS 100 mL infusion 400 mg (rounded from 418 mg = 5 mg/kg 83.6 kg Treatment plan Recorded weight), IV Piggyback, ONCE, 1 dose, On Thu09/21/24 at 1100, Administer over 30 Minutes Start Infusion 09/21/2024 11:06 AM EST 400 mg 210 mL/hr documented in this encounter Care Teams Nanoscience Technician Relationship Specialty Start Date End Date Buddy Patel III, MD [address] [place] [address] PCP - General Family Medicine 04/29/23 documented as of this encounter
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
--- OUTSIDE RECORDS SUMMARY | 2024-10-25 00:55 | External Medical Summary ---
Author Name Unknown Address Unknown Organization [facility] [place] [address] Laboratory Report Ordering Provider Test Date Status TEJAS TORRES 09/21/2024 08:49:57 Final Observation Date Value Abnormality Reference (Units ) Status Nucleated erythrocytes/100 leukocytes [Ratio] in Blood by Automated count 09/21/2024 08:49:57 Final Acanthocytes [Presence] in Blood by Light microscopy 09/21/2024 08:49:57 Moderate Abnormal None Seen Final Elliptocytes [Presence] in Blood by Light microscopy 09/21/2024 08:49:57 Moderate Abnormal None Seen Final Schistocytes 09/21/2024 08:49:57 Few Abnormal None Seen Final Performing Location [facility] [place] [address]
--- OUTSIDE RECORDS SUMMARY | 2024-10-25 00:55 | External Medical Summary ---
Author Name Unknown Address Unknown Organization [id number] [place] [address] Laboratory Report Ordering Provider Test Date Status TEJAS TORRES 09/07/2024 09:29:01 Final Observation Date Value Abnormality Reference (Units ) Status WBC, Total 09/07/2024 09:29:01 4.58 4.00-10.8 0 (K/uL) Final RBC 09/07/2024 09:29:01 4.36 4.50-5.25 (M/uL) Final Hemoglobin 09/07/2024 09:29:01 10.1 Below low normal 14 .0-16.8 (g/dL) Final HCT 09/07/2024 09:29:01 34.1 Below low normal 40. 0-48.4 (%) Final MCV 09/07/2024 09:29:01 78.2 82.0-99.5 (fL) Final MCH 09/07/2024 09:29:01 23.2 27.0-34.0 (pg) Final MCHC 09/07/2024 09:29:01 29.6 32.0-36.0 (g/dL) Final RDW 09/07/2024 09:29:01 21.3 11.5-15.5 (%) Final Platelets 09/07/2024 09:29:01 269 140-400 (K /uL) Final Results rechecked.
null MPV 09/07/2024 09:29:01 Final No result - abnormal platele t distribution. Performing Location [facility] [place] [address]
--- OUTSIDE RECORDS SUMMARY | 2024-10-25 00:55 | External Medical Summary | Summary of Care ---
Author Name Unknown Organization [facility] Address [address] [place] [address] Phone [phone] Care Team Providers Care Harness Maker Name Role Phone Amanda BROWN MD, Buddy Britton Primary Care Provider [phone] Reason for Visit * Reason Onset Date Comments Medication Refill 09/08/2024 Encounter Details Date Type Department Care Team (Late st Contact Info) Description 09/08/2024 Refill Hematology/Oncology [facility] [address] [place] [address] Anahy Rowan CRNP [address] [place] [address] Malignant neoplasm of sigmoid colon (HCC) Allergies No known active allergiesdocumented as of this encounter (statuses as of 09/08/2024) Medications Medication Sig Dispensed Refills Start Date [...] Sprays into each nostril in the morning. [place] hand to apply. 16 g 3 11/25/2023 Active Clindamycin Phosphate 1 % External SolutionIndicati ons:Acneiform rash Apply topically to affected area 2 times a day. Apply to rash on face. 30 mL 06/27/2024 Active Trifluridine-Tip iracil 15-6.14 MG Oral Tablet (Lonsurf)Indicat ions:Malignant neoplasm of sigmoid colon (HCC) Take 30 mg (2 tablets) by mouth in the morning and 30 mg (2 tablets) before bedtime. Take within 1 hour of meal. On days 1-5 and 8- of 28 day cycle. 40 Tablet 5 08/04/2024 Active Trifluridine-Tip iracil 20-8.19 MG Oral Tablet [...] for sleep 30 Tablet 1 09/05/2024 Active HYDROcodone-Acet aminophen 7.5-325 MG Oral TabletIndication [...] for Nausea. 30 Tablet 2 09/08/2024 Active Ondansetron HCl 8 MG Oral Tablet (Zofran)Indicati ons:Malignant neoplasm of sigmoid colon (HCC) Take 1 Tablet by mouth every 8 hours as needed for Nausea. 30 Tablet 2 05/10/2024 09/08/2024 Discontinue d(Refill) documented as of this encounter (statuses as of 09/08/2024) Active Problems Problem Noted Date Diagnosed Date Encounter for antineoplastic chemotherapy 2023 Metastatic colon cancer to liver 11/25/2023 Protein-calorie malnutrition 08/07/2023 Malignant neoplasm of sigmoid colon 04/22/2023 Encounter for antineoplastic chemotherapy 2022 documented as of this encounter (statuses as of 09/08/2024) Immunizations Name Administration Dates Next Due Pneumococcal [...] Telephone Encounter - Diana Bo LPN - 09/08/2024 10:10 AM EDTPending Prescriptions: Disp Refills Ondansetron HCl 8 MG Oral Tablet (Zofran) 30 Tab*2 Sig: Take 1 Tablet by mouth every 8 hours as needed for Nausea. * Telephone Encounter - Diana Bo LPN - 09/08/2024 10:08 AM EDT Refill request for Ondansetron Hcl 8 mg pended below: Last Refill: 05/10/2024 Last seen: 09/07/2024 Next Appt.: 09/21/2024 * Telephone Encounter - Lillie Loya PHARM Tech - 09/08/2024 9:35 AM EDT Patient is up to date for office visits. Pending Prescriptions: Disp Refills Ondansetron HCl 8 MG Oral Tablet (Zofran) 30 Tab*2 Sig: Take 1 Tablet by mouth every 8 hours as needed for Nausea. Last Visit: 09/07/2024 (in office), Visit date not found (telemedicine) Next Visit: 09/21/2024 If no future appointments scheduled, and last appointment is greater than a year ago, please schedule patient for a follow-up appointment Last date the medication was ordered: 05/10/2024 Pharmacy: [facility] [address] [place] [address] Is this request for a controlled substance?No it is not controlled. Urine Drug Screen:No results found for this or any previous visit. Patient Phone Numbers Labs: Lab Results Component Value Date/Time CREAT 0.7 09/07/2024 09:29 AM POTASSIUM 4.4 09/07/2024 09:29 AM LDL 91 12/01/2023 08:46 AM LDL 127 04/22/2023 01:20 PM ALT <5 (L) 09/07/2024 09:29 AM HGBA1C 6.0 (A) 04/17/2023 12:00 AM documented in this encounter Plan of Treatment Upcoming Encounters Date Type Department Care Team (Late st Contact Info) Description 09/21/2024 9:00 AM EST Laboratory Laboratory [facility] [place] [address] [place] [phone] Verna Lab [facility] [address] [facility] [place] [address] 09/21/2024 9:30 AM EST Pharmacy Pharmacy Hematology Oncology [facility] [address] [place] [address] [facility], [facility] Hem/Onc [address] [place] [address] 09/21/2024 9:30 AM EST Office Visit Hematology/Oncology [facility] [place] [address] [place], [place] [phone] Yanet Berg MD [address] [place], [place] [address] 09/21/2024 10:15 AM EST Hem/Onc Treatment Hematology/Oncology Treatment, [place] [address] [facility] [address] [place], [place] [phone] Verna, Chair 8 Hem Onc [facility] [address] [place], [place] [address] 10/05/2024 9:30 AM EST Office Visit Hematology/Oncology [facility] [place] [address] [place], [place] [phone] Yanet Berg MD [address] [place], [place] [address] 10/27/2024 7:40 AM EST Office Visit Family Practice [facility] [place] [address] [place], [place] [address] Buddy Patel III, MD [address] [place] [address] Health Maintenance Due Date Last Done Comments [...] this encounter Medical Devices Implanted Type Area Mail Order Biller Device Identifier Shelf Expiration Date Model / Serial / Lot Port Implant W/8f Poly Cath - [id number] Implanted:Qty : 1 on 05/06/2023 by Leonardo Castro, at OR [facility] Right: Chest CR BARD : PERIPHERAL VASCULAR [id number] 07/16/2024 [id number] / / [id number] documented as of this encounter Visit Diagnoses Diagnosis Malignant neoplasm of sigmoid colon (HCC) Malignant neoplasm of sigmoid colon documented in this encounter Care Teams Harness Maker Relationship Specialty Start Date End Date Buddy Patel III, MD [address] [facility] [place] [address] PCP - General Family Medicine 04/29/23 documented as of this encounter
--- OUTSIDE RECORDS SUMMARY | 2024-10-25 00:55 | External Medical Summary ---
Author Name Unknown Address Unknown Organization K09[facility] [place] [address] Laboratory Report Ordering Provider Test Date Status TEJAS TORRES 09/07/2024 09:29:01 Final Observation Date Value Abnormality Reference (Units ) Status SYNC LEUKOCYTES IN BLOOD BY AUTOMATED COUNT 09/07/2024 09:29:01 4.58 4.00-10.80 (K/uL) Final Segs 09/07/2024 09:29:01 46.8 40.0-75.0 (%) Final Lymphs % 09/07/2024 09:29:01 33.8 18.0-42.0 (%) Final Monos 09/07/2024 09:29:01 17.5 Above high normal 1.0-11.0 (%) Final Eosinophils 09/07/2024 09:29:01 1.5 0.0-6.0 (%) Final Basos 09/07/2024 09:29:01 0.4 0.0-2.0 (%) Final Absolute Segs 09/07/2024 09:29:01 2.13 1.80-7.70 (K/uL) Final Lymphs, absolute 09/07/2024 09:29:01 1.54 1.00-4.80 (K/ul) Final Monos, Abs 09/07/2024 09:29:01 0.80 0.00-1.10 (K/uL) Final Eos, Abs 09/07/2024 09:29:01 0.07 0.00-0.70 (K/uL) Final Basos, Abs 09/07/2024 09:29:01 0.02 0.00-0.20 (K/uL) Final Performing Location [facility] [place] [address]
--- OUTSIDE RECORDS SUMMARY | 2024-10-25 00:55 | External Medical Summary | Summary of Care ---
Author Name Unknown Organization [facility] Address [address] [place] [address] Phone [phone] Care Team Providers Care Rug Clipper Name Role Phone Amanda BROWN MD, Buddy Britton Primary Care Provider [phone] Reason for Visit * Reason Onset Date Comments Advice 06/17/2024 Encounter Details Date Type Department Care Team (Late st Contact Info) Description 06/17/2024 Telephone Family Practice [facility] [address] [place] [address] Buddy Patel III, MD [address] [place] [address] Advice Allergies No known active allergiesdocumented as of this encounter (statuses as of 09/16/2024) Medications Medication Sig Dispensed Refills Start Date [...] Sprays into each nostril in the morning. [place] hand to apply. 16 g 3 11/25/2023 Active metroNIDAZOLE 500 MG Oral Tablet (Flagyl) Take 1 Tablet by mouth 2 times a day with morning and evening meals. 08/15/2024 Discontinue d(Medicatio n List Clean Up) oxyCODONE HCl 5 MG Oral Tablet (Oxy IR)Indications:M alignant neoplasm of sigmoid colon (HCC) Take 1 Tablet by mouth every 6 hours as needed for Pain, Severe. 120 Tablet 11/04/2023 07/01/2024 Discontinue d(Refill) ALPRAZolam 1 MG Oral Tablet (xaNAX) 1 tablet at bedtime as needed for sleep 30 Tablet 1 05/04/2024 07/01/2024 Discontinue d(Refill) Ondansetron HCl 8 MG Oral Tablet (Zofran)Indicati ons:Malignant neoplasm of sigmoid colon (HCC) Take 1 Tablet by mouth every 8 hours as needed for Nausea. 30 Tablet 2 05/10/2024 09/08/2024 Discontinue d(Refill) HYDROcodone-Acet aminophen 7.5-325 MG Oral TabletIndication s:Malignant neoplasm of sigmoid colon (HCC) Take 1 Tablet by mouth every 6 hours as needed for Pain, Severe. 120 Tablet 06/03/2024 07/04/2024 Discontinue d(Refill) documented as of this encounter (statuses as of 09/16/2024) Active Problems Problem Noted Date Diagnosed Date Encounter for antineoplastic chemotherapy 2023 Metastatic colon cancer to liver 11/25/2023 Protein-calorie malnutrition 08/07/2023 Malignant neoplasm of sigmoid colon 04/22/2023 Encounter for antineoplastic chemotherapy 2022 documented as of this encounter (statuses as of 09/16/2024) Immunizations Name Administration Dates Next Due Pneumococcal [...] encounter Miscellaneous Notes * Telephone Encounter - Brenda Cantrell RN - 06/22/2024 2:03 PM EDT Left message for patients sister to call office if she still needs to reschedule any appts. Patientwas in the office yesterday so message likely not needed as this time as it was sent to PCP's office 06/17. * Telephone Encounter - Lillie Moore OSA - 06/17/2024 5:16 PM EDT Patient's sister would like know if it's okay for the pt to wait another month to receive his injection (unsure what the name of the injection is called) because his other appointment was cancelled to another month. Patient would like his sister to receive calls about his appointments because he's getting confused. Please call back to confirm if waiting another month for the injection is okay. documented in this encounter Plan of Treatment Upcoming Encounters Date Type Department Care Team (Late st Contact Info) Description 09/21/2024 9:00 AM EST Laboratory Laboratory [facility] [address] [place] [address] [place] [address] [facility] [place] [address] 09/21/2024 9:30 AM EST Pharmacy Pharmacy Hematology Oncology [facility]3], [place] [address] [place] [address] [facility], [facility] Clinic Hem/Onc [address] [place] [address] 09/21/2024 9:30 AM EST Office Visit Hematology/Oncology [facility] [place] [address] [place] [phone] Yanet Berg MD [address] [place] [address] 09/21/2024 10:15 AM EST Hem[facility] [address] [place], [place] [phone] Verna, Chair 8 Hem Onc [address] [place], [place] [address] 10/05/2024 9:30 AM EST Office Visit Hematology/Oncology [facility] [place] [address] [place], [place] [phone] Yanet Berg MD [address] [facility] [address] [place], [place] [address] 10/27/2024 7:40 AM EST Office Visit Family Practice [facility] [place] [address] [place], [place] [address] Buddy Patel III, MD [address] [facility] [place], [place] [address] Health Maintenance Due Date Last Done Comments [...] this encounter Medical Devices Implanted Type Area Night Coordinator Device Identifier Shelf Expiration Date Model / Serial / Lot Port Implant W/8f Poly Cath - [id number] Implanted:Qty : 1 on 05/06/2023 by Leonardo Castro, at OR [facility] Right: Chest CR BARD : PERIPHERAL VASCULAR [id number] 07/16/2024 [id number] / / [id number] documented as of this encounter Care Teams Rug Clipper Relationship Specialty Start Date End Date Buddy Patel III, MD [address] [place] [address] PCP - General Family Medicine 04/29/23 documented as of this encounter
--- OUTSIDE RECORDS SUMMARY | 2024-10-25 00:55 | External Medical Summary | Summary of Care ---
Author Name Unknown Organization [facility] [address] [place] [address] Phone [phone] Care Team Providers Care Supervisor Pigment Making Name Role Phone Amanda BROWN MD, Buddy Britton Primary Care Provider [phone] Reason for Visit * Reason Onset Date Comments Medication Refill 09/08/2024 Encounter Details Date Type Department Care Team (Late st Contact Info) Description 09/08/2024 Telephone Hematology/Oncology, [facility] [address] [place] [address] Yanet Berg MD [address] [place] [address] Medication Refill Allergies No known active allergiesdocumented as of this encounter (statuses as of 09/13/2024) Medications Medication Sig Dispensed Refills Start Date [...] Sprays into each nostril in the morning. [place] hand to apply. 16 g 3 11/25/2023 [...] for Pain, Severe. 120 Tablet 09/05/2024 Active documented as of this encounter (statuses as of 09/13/2024) Active Problems Problem Noted Date Diagnosed Date Encounter for antineoplastic chemotherapy 2023 Metastatic colon cancer to liver 11/25/2023 Protein-calorie malnutrition 08/07/2023 Malignant neoplasm of sigmoid colon 04/22/2023 Encounter for antineoplastic chemotherapy 2022 documented as of this encounter (statuses as of 09/13/2024) Immunizations Name Administration Dates Next Due Pneumococcal [...] encounter Miscellaneous Notes * Telephone Encounter - Sophie Corcoran CPhT - 09/08/2024 9:33 AM EDT Pt calling for refills on Ondansetron HCl 8 MG Oral Tablet, last prescribed by Hematology Oncology,transferred to specialty tech line for further assistance. Thank you, Sophie Corcoran CPhT [employer] [facility] 09/08/2024,9:34 AM documented in this encounter Plan of Treatment Upcoming Encounters Date Type Department Care Team (Late st Contact Info) Description 09/21/2024 9:00 AM EST Laboratory Laboratory [place] [address] [place] [phone] [facility] [address] [facility] [place] [address] 09/21/2024 9:30 AM EST Pharmacy Pharmacy Hematology Oncology [facility] [address] [place] [address] [facility] Hem/Onc [address] [place] [address] 09/21/2024 9:30 AM EST Office Visit Hematology/Oncology [facility] [place] [address] [place] [phone] Yanet Berg MD [address] [place] [address] 09/21/2024 10:15 AM EST Hem[facility] [address] [place], [place] [phone] Verna, Chair 8 Hem Onc [address] [place], [place] [address] 10/05/2024 9:30 AM EST Office Visit Hematology/Oncology [facility] [place] [address] [place], [place] [phone] Yanet Berg MD 200 [facility] [place], [place] [address] 10/27/2024 7:40 AM EST Office Visit Family Practice [facility] [place] [address] [facility] [place], [place] [address] Buddy Patel III, MD [address] [facility] [place], [place] [address] Health Maintenance Due Date Last Done Comments [...] this encounter Medical Devices Implanted Type Area Ticket Collector Or Usher Device Identifier Shelf Expiration Date Model / Serial / Lot Port Implant W/8f Poly Cath - [id number] Implanted:Qty : 1 on 05/06/2023 by Leonardo Castro, at OR [facility] Right: Chest CR BARD : PERIPHERAL VASCULAR [id number] 07/16/2024 [id number] / / [id number] documented as of this encounter Care Teams Supervisor Pigment Making Relationship Specialty Start Date End Date Buddy Patel III, MD [address] [place] [address] PCP - General Family Medicine 04/29/23 documented as of this encounter
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
--- OUTSIDE RECORDS SUMMARY | 2024-10-25 00:55 | External Medical Summary ---
Author Name Unknown Address Unknown Organization [id number] [place] [address] Laboratory Report Ordering Provider Test Date Status TORRESTEJAS 09/07/2024 09:29:01 Final Observation Date Value Abnormality Reference (Units ) Status Nucleated erythrocytes/100 leukocytes [Ratio] in Blood by Automated count 09/07/2024 09:29:01 Final Schistocytes 09/07/2024 09:29:01 Few Abnormal None Seen Final Giant platelets [Presence] in Blood by Light microscopy 09/07/2024 09:29:01 Present Abnormal None Seen Final Performing Location [facility] [place] [address]
--- OUTSIDE RECORDS SUMMARY | 2024-10-25 00:55 | External Medical Summary ---
Author Name Unknown Address Unknown Organization [id number] [place] [address] Laboratory Report Ordering Provider Test Date Status TEJAS TORRES 09/21/2024 08:49:57 Final Observation Date Value Abnormality Reference (Units ) Status WBC, Total 09/21/2024 08:49:57 6.42 4.00-10.8 0 (K/uL) Final RBC 09/21/2024 08:49:57 4.22 4.50-5.25 (M/uL) Final Hemoglobin 09/21/2024 08:49:57 9.8 Below low normal 14 .0-16.8 (g/dL) Final HCT 09/21/2024 08:49:57 32.7 Below low normal 40. 0-48.4 (%) Final MCV 09/21/2024 08:49:57 77.5 82.0-99.5 (fL) Final MCH 09/21/2024 08:49:57 23.2 27.0-34.0 (pg) Final MCHC 09/21/2024 08:49:57 30.0 32.0-36.0 (g/dL) Final RDW 09/21/2024 08:49:57 21.3 11.5-15.5 (%) Final Platelets 09/21/2024 08:49:57 170 140-400 (K /uL) Final MPV 09/21/2024 08:49:57 Final No result - abnormal platele t distribution. Performing Location [facility] [place] [place] [address]
--- OUTSIDE RECORDS SUMMARY | 2024-10-25 00:55 | External Medical Summary ---
Author Name Unknown Address Unknown Organization [facility] [place] [address] Laboratory Report Ordering Provider Test Date Status TEJAS TORRES 09/21/2024 08:49:57 Final Observation Date Value Abnormality Reference (Units ) Status Color of Urine by Auto 09/21/2024 08:49:57 Yellow Light Yellow, Yellow, Dark Yellow Final Clarity, Urine 09/21/2024 08:49:57 Clear Clear Final Glucose [Mass/volume] in Urine by Automated test strip 09/21/2024 08:49:57 Negative Negative (mg/dL) Final Bilirubin.total [Presence] in Urine by Automated test strip 09/21/2024 08:49:57 Negative Negative Final Ketones [Mass/volume] in Urine by Automated test strip 09/21/2024 08:49:57 Negative Negative (mg/dL) Final Specific gravity, Urine 09/21/2024 08:49:57 1.015 1.003-1.030 Final Hemoglobin [Presence] in Urine by Automated test strip 09/21/2024 08:49:57 Negative Negative Final pH, Urine 09/21/2024 08:49:57 7.0 5.0-7.5 (Units) Final Protein [Mass/volume] in Urine by Automated test strip 09/21/2024 08:49:57 Negative Negative (mg/dL) Final Urobilinogen [Mass/volume] in Urine by Automated test strip 09/21/2024 08:49:57 4.0 Abnormal 0.2, 1.0 (mg/dL) Final Nitrite [Presence] in Urine by Automated test strip 09/21/2024 08:49:57 Negative Negative Final Leukocyte esterase [Presence] in Urine by Automated test strip 09/21/2024 08:49:57 Negative Negative Final Annotation Comment 09/21/2024 08:49:57 Final Screen negative - Microscopi c not performed. Performing Location [facility] [place] [address]
--- OUTSIDE RECORDS SUMMARY | 2024-10-25 00:55 | External Medical Summary ---
Author Name Unknown Address Unknown Organization [facility] [place] [address] Laboratory Report Ordering Provider Test Date Status TEJAS TORRES 09/21/2024 08:49:57 Final Observation Date Value Abnormality Reference (Units ) Status SYNC LEUKOCYTES IN BLOOD BY AUTOMATED COUNT 09/21/2024 08:49:57 6.42 4.00-10.80 (K/uL) Final Segs 09/21/2024 08:49:57 77.3 Above high normal 40.0-75.0 (%) Final Lymphs % 09/21/2024 08:49:57 17.8 Below low normal 18.0-42.0 (%) Final Monos 09/21/2024 08:49:57 4.2 1.0-11.0 (%) Final Eosinophils 09/21/2024 08:49:57 0.5 0.0-6.0 (%) Final Basos 09/21/2024 08:49:57 0.2 0.0-2.0 (%) Final Absolute Segs 09/21/2024 08:49:57 4.97 1.80-7.70 (K/uL) Final Lymphs, absolute 09/21/2024 08:49:57 1.14 1.00-4.80 (K/ul) Final Monos, Abs 09/21/2024 08:49:57 0.27 0.00-1.10 (K/uL) Final Eos, Abs 09/21/2024 08:49:57 0.03 0.00-0.70 (K/uL) Final Basos, Abs 09/21/2024 08:49:57 0.01 0.00-0.20 (K/uL) Final Performing Location [facility] [place] [place] [address]
--- OUTSIDE RECORDS SUMMARY | 2024-10-25 00:55 | External Medical Summary | Summary of Care ---
Author Name Unknown Organization [facility] Address [address] [place] [address] Phone [phone] Care Team Providers Care Learning And Development Associate Name Role Phone Amanda BROWN MD, Buddy Britton Primary Care Provider [phone] Reason for Visit * Reason Comments Chemotherapy zirabev * Episode Based Medications (Routine) - Authorized Specialty Diagnoses / Procedures Referred By Yany t Referred To Contact Diagnoses Malignant neoplasm of sigmoid colon (HCC) Encounter for antineoplastic chemotherapy Procedures IA INJ., ZIRABEV, 10 MG Yanet Berg MD [address] [place] [address] Anc Hem/Onc [address] [address] Referral ID Status Reason Start Date Expiration Date V isits Requested Visits Authorized [id number] Authorized 08/03/2024 11/15/2099 99 99 Encounter Details Date Type Department Care Team (Latest Contact Info) Description 09/07/2024 10:30 AM EDT Hem/Onc Treatment Hematology/Oncolog y Treatment, [address] [phone] Verna, Chair 1 Hem On[address] [place] [address] Malignant neoplasm of sigmoid colon (HCC)*; [...] Sprays into each nostril in the morning. [place] hand to apply. 16 g 3 11/25/2023 [...] 8- of 28 day cycle. 40 Tablet 08/04/2024 Active Potassium Chloride ER 10 MEQ [...] Description 09/21/2024 9:00 AM EST Laboratory Laboratory [facility] Verna [place] [address] [place] [phone] Verna, Lab [facility] [address] [facility] [place] [place] [address] 09/21/2024 9:30 AM EST Pharmacy Pharmacy Hematology Oncology [facility] [address] [place] [address] [facility] [place] Clinic Hem/Onc [facility] [place] [address] 09/21/2024 9:30 AM EST Office Visit Hematology/Oncology [facility] [place] [address] [place] [phone] Yanet Berg MD [address] [place], [place] [address] 09/21/2024 10:15 AM EST Hem/Onc Treatment Hematology/Oncology Treatment, [place] [address] [place], [place] [phone] Verna, Chair 8 Hem Onc [facility] [address] [place], [place] [address] 10/05/2024 9:30 AM EST Office Visit Hematology/Oncology [facility] Verna [place] [address] [place], [place] [phone] Yanet Berg MD [address] [place] [address] 10/27/2024 7:40 AM EST Office Visit Family Practice [facility] [place] [address] [place] [address] Ochiltree III, Buddy Britton MD [address] [facility] [place] [address] Health Maintenance Due Date Last Done Comments [...] this encounter Medical Devices Implanted Type Area Catalog Specialist Device Identifier Shelf Expiration Date Model / Serial / Lot Port Implant W/8f Poly Cath - [id number] Implanted:Qty : 1 on 05/06/2023 by Leonardo Castro DO at OR [facility] Right: Chest CR BARD : PERIPHERAL VASCULAR [id number] 07/16/2024 [id number] / / [id number] documented as of this encounter Visit Diagnoses [...] ONCE PRN Other, Hypersensitivity Reaction, Starting on 09/07/24 at 1034, Until Marcela 09/08/24 at 1033, For 24 hours EPINEPHrine 1 MG/ML inj 0.3 mg 0.3 mg, Intramuscular, ONCE PRN Other, Hypersensitivity Reaction or Anaphylaxis, Starting on Thu09/07/24 at 1034, Until Marcela 09/08/24 at 1033, For 24 hours hEParin 100 UNIT/ML Lock Flush inj 500 Units 500 Units (5 mL), IV Lock, PRN Other, IV Flush, Starting on Thu09/07/24 at 1034, Until Marcela 09/08/24 at 1033, For 24 hours, Do not flush if lock, PICC, or central line not in place; IV infusing or unable to flush. Given 09/07/2024 12:28 PM EDT 500 Units Hydrocortisone Sod Suc (PF) (Solu-Cortef) inj 100 mg 100 mg, IV Push, ONCE PRN Other, Hypersensitivity Reaction, Starting on Thu09/07/24 at 1034, Until Marcela 09/08/24 at 1033, For 24 hours NSS infusion Intravenous, at 50 mL/hr, PRN, Starting on Thu09/07/24 at 1145, Until Discontinued, Maintenance line Start Infusion 09/07/2024 10:41 AM EDT 50 mL/hr oxygen GAS Inhalation, OXYGEN, First dose on Thu09/07/24 at 1115, Until Discontinued, Device/Managed by: Low Flow Device, [...] Flush, Starting on Thu09/07/24 at 1034, Until Marcela 09/08/24 at 1033, For 24 hours, Do not flush if lock, PICC, or central line not in place; IV infusing or unable to flush. Given 09/07/2024 12:28 PM EDT 10 mL Inactive Administered Medications - up to 3 most recent administrations Medication Order MAR Action Action Date Dose Rate Site bevaCIZumab-bvzr (Zirabev) 400 mg in NSS 100 mL infusion 400 mg (rounded from 418 mg = 5 mg/kg 83.6 kg Treatment plan Recorded weight), IV Piggyback, ONCE, 1 dose, On Thu09/07/24 at 1215, Administer over 30 Minutes Start Infusion 09/07/2024 11:50 AM EDT 400 mg 210 mL/hr documented in this encounter Care Teams Learning And Development Associate Relationship Specialty Start Date End Date Buddy Patel III, MD [address] [facility] [place], [place] [phone] PCP - General Family Medicine 04/29/23 documented as of this encounter
--- OUTSIDE RECORDS SUMMARY | 2024-10-25 00:55 | External Medical Summary ---
Author Name Unknown Address Unknown Organization [facility] [place] [address] Laboratory Report Ordering Provider Test Date Status TEJAS TORRES 09/21/2024 08:49:57 Final Observation Date Value Abnormality Reference (Units ) Status BUN 09/21/2024 08:49:57 11 6-20 (mg/dL) Final Creatinine 09/21/2024 08:49:57 0.7 0.6-1.2 (mg/dL) Final Glomerular filtration rate/1.73 sq M.predicted [Volume Rate/Area] in Serum, Plasma or Blood by Creatinine-based formula (CKD-EPI) 09/21/2024 08:49:57 >90 >=60 (mL/min) Final eGFR is calculated based on the CKD-EPI 2020 equation. Sodium 09/21/2024 08:49:57 136 135-146 (m mol/L) Final Potassium 09/21/2024 08:49:57 4.3 3.5-5.1 (m mol/L) Final Cl 09/21/2024 08:49:57 101 98-107 (mm ol/L) Final CO2 09/21/2024 08:49:57 21 Below low normal 22- 32 (mmol/L) Final Anion gap 09/21/2024 08:49:57 14 7-15 (mmol /L) Final Glucose 09/21/2024 08:49:57 106 70-120 (mg /dL) Final Albumin 09/21/2024 08:49:57 3.2 Below low normal 3.8 -5.0 (g/dL) Final AST (Aspartate aminotransferase) 09/21/2024 08:49:57 29 10-50 (U/L) Fin al Alk Phos 09/21/2024 08:49:57 180 Above high normal 35 -130 (U/L) Final Bilirubin, Total 09/21/2024 08:49:57 1.0 <=1 .2 (mg/dL) Final Calcium 09/21/2024 08:49:57 9.1 8.4-10.2 ( mg/dL) Final Protein 09/21/2024 08:49:57 8.0 6.0-8.3 (g /dL) Final ALT (Alanine aminotransferase) 09/21/2024 08:49:57 6 Below low normal 10-50 (U/L) Final Performing Location [facility] [address] [place] [address]
--- OUTSIDE RECORDS SUMMARY | 2024-10-25 00:55 | External Medical Summary | Summary of Care ---
Author Name Unknown Organization [facility] Address [address] [place] [address] Phone [phone] Care Team Providers Care Playground Equipment Erector Name Role Phone Amanda BROWN MD, Buddy Britton Primary Care Provider [phone] Reason for Visit * Reason Comments Outpatient Testing Encounter Details Date Type Department Care Team (Late st Contact Info) Description 09/07/2024 9:30 AM EDT Laboratory Laboratory [facility] [address] [place] [address] [facility] [address] [place] [address] Metastatic colon cancer to liver (HCC); Malignant [...] Sprays into each nostril in the morning. [place] hand to apply. 16 g 3 11/25/2023 [...] Care Team (Latest Contact Info) Description 09/07/2024 10:00 AM EDT Office Visit Hematology/Oncology [facility] [address] [place] [phone] Anahy Rowan CRNP [address] [facility] [place] [address] PENDING VISIT DRAFT 09/07/2024 10:30 AM EDT Hem/Onc Treatment Hematology/Oncology Treatment, [place] [address] [place] [phone] Verna, Chair 1 Hem Onc [address] [place] [address] Arrived 09/07/2024 12:30 PM EDT Laboratory Laboratory [facility] Verna [place] [address] [place], [place] [phone] Vern[facility] [address] [place], [place] [address] 09/21/2024 9:30 AM EST Pharmacy Pharmacy Hematology Oncology [facility] [address] [place] [address] [facility] [place], [facility] Clinic Hem/Onc [address] [place] [address] 10/05/2024 9:30 AM EST Office Visit Hematology/Oncology [facility] Verna [place] [address] [place], [place] [phone] Yanet Berg MD [address] [place] [address] 10/27/2024 7:40 AM EST Office Visit Family Practice [facility] Vern[place] [address] [place], [place] [address] Buddy Patel III, MD [address] [facility] [place], [place] [address] Pending Results Name Type Priority Associated Diagnoses Date /Time MAGNESIUM Lab STAT Metastatic colon cancer to liver (HCC) 09/07/2024 9:29 AM EDT CBC WITH WBC DIFFERENTIAL Lab STAT Metastatic colon cancer to liver (HCC) Malignant neoplasm of sigmoid colon (HCC) 09/07/2024 9:29 AM EDT COMPREHENSIVE METABOLIC PANEL Lab STAT Metastatic colon cancer to liver (HCC) Malignant neoplasm of sigmoid colon (HCC) 09/07/2024 9:29 AM EDT CBC Lab STAT Metastatic colon cancer to liver (HCC) Malignant neoplasm of sigmoid colon (HCC) 09/07/2024 9:29 AM EDT DIFFERENTIAL, AUTOMATED Lab STAT Metastatic colon cancer to liver (HCC) Malignant neoplasm of sigmoid colon (HCC) 09/07/2024 9:29 AM EDT URINALYSIS, REFLEX TO MICROSCOPIC Lab STAT Metastatic colon cancer to liver (HCC) Malignant neoplasm of sigmoid colon (HCC) 09/07/2024 9:29 AM EDT Health Maintenance Due Date Last Done Comments COVID-19 Vaccine (#1) 1968 HIV Screening 1978 Hepatitis C Screening 1981 DTap/Tdap Vaccines (1 - Tdap) 1982 Zoster Vaccines (1 of 2) 1982 Cologuard 2008 Fecal Occult Blood Test 2008 Sigmoidoscopy 2008 Influenza Vaccine (FLU shot) (#1) 2024 Depression Screening 08/07/2024 08/07/2023 Diabetes Screening 08/24/2027 08/24/2024, 0 08/10/2024, 08/02/2024, Additional history exists Lipid Panel 12/01/2028 12/01/2023, [...] this encounter Medical Devices Implanted Type Area Consumer Relations Specialist Device Identifier Shelf Expiration Date Model / Serial / Lot Port Implant W/8f Poly Cath - [id number] Implanted:Qty : 1 on 05/06/2023 by Leonardo Castro DO at OR [facility] Right: Chest CR BARD : PERIPHERAL VASCULAR [id number] 07/16/2024 [id number] / / [id number] documented as of this encounter Visit Diagnoses Diagnosis Metastatic colon cancer to liver (HCC) Malignant neoplasm of colon, unspecified site Malignant neoplasm of sigmoid colon (HCC) Malignant neoplasm of sigmoid colon documented in this encounter Care Teams Playground Equipment Erector Relationship Specialty Start Date End Date Buddy Patel III, MD [address] [facility] [place] [address] PCP - General Family Medicine 04/29/23 documented as of this encounter
--- OUTSIDE RECORDS SUMMARY | 2024-10-25 00:56 | External Medical Summary | Summary of Care ---
Author Name Unknown Organization [facility] Address [address] [place] [address] Phone [phone] Care Team Providers Care Retail Account Executive Name Role Phone Amanda BROWN MD, Buddy Britton Primary Care Provider [phone] Reason for Visit * Reason Comments Chemotherapy Day 1 cycle 4 vertib ix/folfiri * Episode Based Medications (Routine) - Closed Specialty Diagnoses / Procedures Referred By Yany t Referred To Contact Diagnoses Malignant neoplasm of sigmoid colon (HCC) Encounter for antineoplastic chemotherapy Procedures MO LEUCOVORIN CALCIUM INJECTION MO PALONOSETRON HCL MO FLUOROURACIL INJECTION MO IRINOTECAN INJECTION MO PANITUMUMAB INJECTION Yanet Berg MD [address] [place] [address] Anc Hem/Onc [facility] Verna [address] [place] [phone] Referral ID Status Reason Start Date Expiration Date Visits Re quested Visits Authorized [id number] Closed 05/04/2024 10/16/[phone] Encounter Details Date Type Department Care Team (Latest Contact Info) Description 07/20/2024 12:30 PM EDT Hem/Onc Treatment Hematology/Oncolog y Treatment, [address] [phone] Verna, Chair [address] Hem On[address] [place] [address] Malignant neoplasm of sigmoid colon (HCC)*; Encounter for antineoplastic chemotherapy Allergies No known active allergiesdocumented as of this encounter (statuses as of 08/31/2024) Medications Medication Sig Dispensed Refills Start Date End Date Status Dicyclomine HCl 10 MG Oral Capsule (Bentyl) Take 1 Capsule by mouth 4 times a day as needed for Pain. For abdominal pain 8 Capsule 11 08/07/2023 Active Additional Information Patient not taking.Reported on 03/02/2024 Atenolol 50 MG Oral Tablet (Tenormin) Take [...] Sprays into each nostril in the morning. [place] hand to apply. 16 g 3 11/25/2023 Active Additional Information Patient not taking.Reported on 03/02/2024 Ondansetron HCl 8 MG Oral Tablet (Zofran)Indicati ons:Malignant neoplasm of sigmoid colon (HCC) Take 1 Tablet by mouth every 8 hours as needed for Nausea. 30 Tablet 2 05/10/2024 Active Clindamycin Phosphate 1 % External SolutionIndicati ons:Acneiform rash Apply topically to affected area 2 times a day. Apply to rash on face. 30 mL 06/27/2024 Active ALPRAZolam 1 MG Oral Tablet (xaNAX) 1 tablet at bedtime as needed for sleep 30 Tablet 1 07/04/2024 Active metroNIDAZOLE 500 MG Oral Tablet (Flagyl) Take 1 Tablet by mouth 2 times a day with morning and evening meals. 4 Discontinue d(Medicatio n List Clean Up) oxyCODONE HCl 5 MG Oral Tablet (Oxy IR)Indications:M alignant neoplasm of sigmoid colon (HCC) Take 1 Tablet by mouth every 6 hours as needed for Pain, Severe. 120 Tablet 07/04/2024 4 Discontinue d(Refill) HYDROcodone-Acet aminophen 7.5-325 MG Oral TabletIndication s:Malignant neoplasm of sigmoid colon (HCC) Take 1 Tablet by mouth every 6 hours as needed for Pain, Severe. 120 Tablet 07/08/2024 Discontinue d(Refill) Potassium Chloride ER 10 MEQ Oral Tablet Extended ReleaseIndicatio ns:Metastatic colon cancer to liver (HCC) Take 1 Tablet by mouth in the morning. 14 Tablet 07/12/2024 Discontinue d(Refill) documented as of this encounter (statuses as of 08/31/2024) Active Problems Problem Noted Date Diagnosed Date Metastatic colon cancer to liver 11/25/2023 Protein-calorie malnutrition 08/07/2023 Malignant neoplasm of sigmoid colon 04/22/2023 Encounter for antineoplastic chemotherapy 2022 documented as of this encounter (statuses as of 08/31/2024) Immunizations Name Administration Dates Next Due Pneumococcal [...] Sign Reading Time Taken Comments Blood Pressure 110/74 07/20/2024 12:54 PM EDT Pulse 96 07/20/2024 12:54 PM EDT Temperature 36.2 C (97.1 F) 07/20/2024 12:54 PM E DT Respiratory Rate 18 07/20/2024 12:54 PM EDT Oxygen Saturation 93% 07/20/2024 12:54 PM EDT Inhaled Oxygen Concentration - - Weight 83.3 kg (183 lb 9.6 oz) 07/20/2024 12:54 PM EDT Height - - Body Mass Index 27.92 02/23/2024 9:11 AM EDT documented in this encounter Nursing Notes * Patricia Bullard RN - 07/20/2024 4:12 PM EDT Goals: Patient will remain free from injury. Possible barriers to meeting goals: IV Pump Stability of the patient: Moderately unstable - medium risk of patient condition declining or worsening Summary regarding today's goals: Met: Patient remained free from injury during treatment. Patient discharged home in stable condition with 5FU infusing per CADD pump per order. * Patricia Bullard RN - 07/20/2024 12:55 PM EDT Chair 11. Patient here for treatment Chemotherapy/Immunotherapy agents: IRINOTECAN, Fluorouracil, Vectibix Consent for chemotherapy drug treatment complete, dated, and signed? yes, date - 05/04/24 Treatment lab parameters met? Yes Has treatment weight changed > than 10%? No Treatment preauthorized? Yes VITALS Filed Vitals: 07/20/24 1254 BP: 110/74 Pulse: 96 Resp: 18 Temp: 36.2 C (97.1 F) TempSrc: Tympanic SpO2: 93% Weight: 83.3 kg (183 lb 9.6 oz) Urine protein: N/A Patient education completed for treatment? Yes Blood transfusion consent signed and complete? NA Return appointment scheduled? Yes Patient had provider visit today? No - If no provider visit must complete Pretreatment Assessment Functional Status: Functional status at today's visit: Restricted in physically strenuous activity but ambulatory and able to carry out work on a light orsedentary nature, e.g. light house work, office work The drug name, dose, infusion volume, rate [...] using the heat function. PRE-TREATMENT ASSESSMENT: NEURO: numbness or tingling: in finger tips and feet - stable at this time CV/RESP: denies symptoms GI/: diarrhea: stable at this time OTHER: denies any additional symptoms PAIN: 0 Safety and Risk for Injury Patient will remain free from injury. Ensure appropriate safety devices are available. Provide and maintain safe environment. VAD accessed without difficulty. flushed with 10 ml NSS. documented in this encounter Plan of Treatment Upcoming Encounters Date Type Department Care Team (Late st Contact Info) Description 09/07/2024 9:30 AM EDT Laboratory Laboratory [facility] [place] [address] [facility] [place] [phone] Verna, Lab [address] [place] [address] 09/07/2024 10:00 AM EDT Office Visit Hematology/Oncology [facility] [place] [address] [facility] [place] [phone] Anahy Rowan CRNP [address] [place] [address] 09/07/2024 10:30 AM EDT Hem/Onc Treatment Hematology/Oncology Treatment, [place] [address] [place] [phone] Verna, Chair 1 Hem Onc [facility] [address] [facility] [place] [address] 09/21/2024 9:30 AM [facility] Pharmacy Pharmacy Hematology Oncology [address] [address] [facility], [facility] [address] [facility] [address] 10/05/2024 9:30 AM EST Office Visit Hematology/Oncology [facility] [address] [facility] [place] [phone] Yanet Berg MD [address] [facility] [place] [address] 10/27/2024 7:40 AM EST Office Visit Family Practice [facility] [address] [facility] [place] [address] Buddy Patel III, MD 200 [facility] [place] [address] Health Maintenance Due Date Last Done Comments [...] encounter Medical Devices Implanted Type Area Director Microbiology Device Identifier Shelf Expiration Date Model / Serial / Lot Port Implant W/8f Poly Cath - [id number] Implanted:Qty : 1 on 05/06/2023 by Leonardo Castro DO at OR [facility] Right: Chest CR BARD : PERIPHERAL VASCULAR [id number] 07/16/2024 [id number] / / [id number] documented as of this encounter Visit Diagnoses Diagnosis Malignant neoplasm of sigmoid colon (HCC)- Primary Malignant neoplasm of sigmoid colon Encounter for antineoplastic chemotherapy documented in this encounter Administered Medications Inactive Administered Medications - up to 3 most recent administrations Medication Order MAR Action Action Date Dose Rate Site Atropine sulfate inj 0.4 mg 0.4 mg, IV Push, ONCE, On Thu07/20/24 at 1315, For 1 dose, Administer prior to irinotecan. Given 07/20/2024 2:28 PM EDT 0.4 mg dexAMETHasone (Decadron) tab 12 mg 12 mg, Oral, ONCE, On Thu07/20/24 at 1315, For 1 dose Given 07/20/2024 12:45 PM EDT 12 mg Fluorouracil (5-Fu) 4,500 mg for Home Infusion 4,500 mg (rounded from 4,728 mg = 2,400 mg/m2 1.97 m2 Treatment Plan BSA from Recorded weight), Intravenous, Administer over 46 Hours, Home Infusion Pharmacy to specify base solution and volume., ONCE, 1 dose, On Thu07/20/24 at 1145 Start Infusion 07/20/2024 4:05 PM EDT 4,500 mg 3 mL/hr Fluorouracil (5-Fu) inj 800 mg 800 mg (rounded from 788 mg = 400 mg/m2 1.97 m2 Treatment Plan BSA from Recorded weight), IV Push, ONCE, 1 dose, On Thu07/20/24 at 1315 Given 07/20/2024 4:03 PM EDT 800 mg irinotecan HCl (Camptosar) 320 mg in D5W 500 mL infusion 320 mg (rounded from 319.14 mg = 162 mg/m2 1.97 m2 Treatment Plan BSA from Recorded weight), IV Piggyback, ONCE, 1 dose, On Thu07/20/24 at 1315, Administer over 90 Minutes, PROTECT FROM LIGHT Start Infusion 07/20/2024 2:28 PM EDT 320 mg 350.67 mL/hr leucovorin calcium 800 mg in D5W 250 mL INFUSION 800 mg (rounded from 788 mg = 400 mg/m2 1.97 m2 Treatment Plan BSA from Recorded weight), IV Piggyback, ONCE, 1 dose, On Thu07/20/24 at 1315, Administer over 90 Minutes, Run over 90 minutes, prior to 5-FU Start Infusion 07/20/2024 2:23 PM EDT 800 mg 170 mL/hr NSS infusion Intravenous, at 50 mL/hr, PRN, Starting on Thu07/20/24 at 0830, Until Thu07/20/24 at 2031, Maintenance line Start Infusion 07/20/2024 12:45 PM EDT 50 mL/hr Palonosetron (Aloxi) inj SOLN 0.25 mg 0.25 mg, IV Push, ONCE, On Thu07/20/24 at 1315, For 1 dose, Restricted per [facility] antiemetic guidelines Given 07/20/2024 12:47 PM EDT 0.25 mg Panitumumab (Vectibix) 500 mg in NSS 100 mL infusion 500 mg (rounded from 484.2 mg = 6 mg/kg 80.7 kg Treatment plan Recorded weight), IV Piggyback, ONCE, 1 dose, On Thu07/20/24 at 1315, Administer over 60 Minutes, Must be infused through a 0.22 micron filter. Doses 1000 mg or less infuse over 60 minutes. If first infusion tolerated, subsequent doses may be administered over 30 to 60 minutes. Doses greater than 1000 mg infuse over 90 minutes. Start Infusion 07/20/2024 1:40 PM EDT 500 mg 200 mL/hr documented in this encounter Care Teams Retail Account Executive Relationship Specialty Start Date End Date Buddy Patel III, MD [address] [facility] [place] [address] PCP - General Family Medicine 04/29/23 documented as of this encounter
--- OUTSIDE RECORDS SUMMARY | 2024-10-25 00:56 | External Medical Summary ---
Author Name Unknown Address Unknown Organization [facility] [place] [address] Laboratory Report Ordering Provider Test Date Status TEJAS TORRES 09/07/2024 09:29:50 Final Observation Date Value Abnormality Reference (Units ) Status Color of Urine by Auto 09/07/2024 09:29:50 Yellow Light Yellow, Yellow, Dark Yellow Final Clarity, Urine 09/07/2024 09:29:50 Clear Clear Final Glucose [Mass/volume] in Urine by Automated test strip 09/07/2024 09:29:50 Negative Negative (mg/dL) Final Bilirubin.total [Presence] in Urine by Automated test strip 09/07/2024 09:29:50 Negative Negative Final Ketones [Mass/volume] in Urine by Automated test strip 09/07/2024 09:29:50 Negative Negative (mg/dL) Final Specific gravity, Urine 09/07/2024 09:29:50 <=1.005 1.003-1.030 Final Hemoglobin [Presence] in Urine by Automated test strip 09/07/2024 09:29:50 Negative Negative Final pH, Urine 09/07/2024 09:29:50 6.0 5.0-7.5 (Units) Final Protein [Mass/volume] in Urine by Automated test strip 09/07/2024 09:29:50 Negative Negative (mg/dL) Final Urobilinogen [Mass/volume] in Urine by Automated test strip 09/07/2024 09:29:50 1.0 0.2, 1.0 (mg/dL) Final Nitrite [Presence] in Urine by Automated test strip 09/07/2024 09:29:50 Negative Negative Final Leukocyte esterase [Presence] in Urine by Automated test strip 09/07/2024 09:29:50 Negative Negative Final Annotation Comment 09/07/2024 09:29:50 Final Screen negative - Microscopi c not performed. Performing Location [facility] [place] [address]
--- OUTSIDE RECORDS SUMMARY | 2024-10-25 00:56 | External Medical Summary | Summary of Care ---
Author Name Unknown Organization [facility] Address [address] [place] [address] Phone [phone] Care Team Providers Care Well Site Drilling Engineer Name Role Phone Amanda BROWN MD, Buddy Britton Primary Care Provider [phone] Reason for Visit * Reason Comments Chemotherapy Day 1 cycle 4 vertib ix/folfiri * Episode Based Medications (Routine) - Closed Specialty Diagnoses / Procedures Referred By Yany t Referred To Contact Diagnoses Malignant neoplasm of sigmoid colon (HCC) Encounter for antineoplastic chemotherapy Procedures LA LEUCOVORIN CALCIUM INJECTION LA PALONOSETRON HCL LA FLUOROURACIL INJECTION LA IRINOTECAN INJECTION LA PANITUMUMAB INJECTION Yanet Berg MD 200 [facility] [address] Anc Hem/Onc [facility] Verna [address] [place] [phone] Referral ID Status Reason Start Date Expiration Date Visits Re quested Visits Authorized [id number] Closed 05/04/2024 10/16/[phone] Encounter Details Date Type Department Care Team (Latest Contact Info) Description 07/20/2024 12:30 PM EDT Hem/Onc Treatment Hematology/Oncolog y Treatment, [address] [phone] Verna, Chair 5 Hem Onc [address] [place] [address] Malignant neoplasm of sigmoid colon (HCC)*; [...] Sprays into each nostril in the morning. [place] hand to apply. 16 g 3 11/25/2023 [...] Description 09/07/2024 9:30 AM EDT Laboratory Laboratory [facility] [place] 200 [facility] [place] [phone] Verna, Lab [address] [place] [address] 09/07/2024 10:00 AM EDT Office Visit Hematology/Oncology [facility] [place] 200 [facility] [place] [phone] Anahy Rowan CRNP [address] [place] [address] 09/07/2024 10:30 AM EDT Hem/Onc Treatment Hematology/Oncology Treatment, [place] [address] [place] [phone] Verna, Chair 1 Hem Onc [facility] 200 [facility] [place] [address] 09/21/2024 9:30 AM [facility] Pharmacy Pharmacy Hematology Oncology [address] [address] [facility], [facility] [address] [facility] [address] 10/05/2024 9:30 AM EST Office Visit Hematology/Oncology [facility] 200 [facility] [place] [phone] Yanet Berg MD 200 [facility] [place] [address] 10/27/2024 7:40 AM EST Office Visit Family Practice [facility] [address] [facility] [place] [address] Buddy Patel III, MD 200 [facility] [place] [address] Health Maintenance Due Date Last Done Comments [...] this encounter Medical Devices Implanted Type Area Manager Trust Device Identifier Shelf Expiration Date Model / Serial / Lot Port Implant W/8f Poly Cath - [id number] Implanted:Qty : 1 on 05/06/2023 by Leonardo Castro DO at OR [facility] Right: Chest CR BARD : PERIPHERAL VASCULAR [id number] 07/16/2024 [id number] / / [id number] documented as of this encounter Visit Diagnoses [...] at 1315, For 1 dose, Restricted per [facility] antiemetic guidelines Given 07/20/2024 12:47 PM EDT [...] mL/hr documented in this encounter Care Teams Well Site Drilling Engineer Relationship Specialty Start Date End Date Buddy Patel III, MD 200 [place] [address] PCP - General Family Medicine 04/29/23 documented as of this encounter
--- OUTSIDE RECORDS SUMMARY | 2024-10-25 00:56 | External Medical Summary ---
Author Name Unknown Address Unknown Organization K09:[facility] [address] [place] [address] Laboratory Report Ordering Provider Test Date Status TEJAS TORRES 09/07/2024 09:29:01 Final Observation Date Value Abnormality Reference (Units ) Status BUN 09/07/2024 09:29:01 10 6-20 (mg/dL) Final Creatinine 09/07/2024 09:29:01 0.7 0.6-1.2 (mg/dL) Final Glomerular filtration rate/1.73 sq M.predicted [Volume Rate/Area] in Serum, Plasma or Blood by Creatinine-based formula (CKD-EPI) 09/07/2024 09:29:01 >90 >=60 (mL/min) Final eGFR is calculated based on the CKD-EPI 2020 equation. Sodium 09/07/2024 09:29:01 136 135-146 (m mol/L) Final Potassium 09/07/2024 09:29:01 4.4 3.5-5.1 (m mol/L) Final Cl 09/07/2024 09:29:01 103 98-107 (mm ol/L) Final CO2 09/07/2024 09:29:01 23 22-32 (mmo l/L) Final Anion gap 09/07/2024 09:29:01 10 7-15 (mmol /L) Final Glucose 09/07/2024 09:29:01 91 70-120 (mg /dL) Final Albumin 09/07/2024 09:29:01 3.4 Below low normal 3.8 -5.0 (g/dL) Final AST (Aspartate aminotransferase) 09/07/2024 09:29:01 19 10-50 (U/L) Fin al Alk Phos 09/07/2024 09:29:01 169 Above high normal 35 -130 (U/L) Final Bilirubin, Total 09/07/2024 09:29:01 0.9 <=1 .2 (mg/dL) Final Calcium 09/07/2024 09:29:01 9.1 8.4-10.2 ( mg/dL) Final Protein 09/07/2024 09:29:01 7.6 6.0-8.3 (g /dL) Final ALT (Alanine aminotransferase) 09/07/2024 09:29:01 <5 Below low normal 10-50 (U/L) Final Performing Location [facility] [address] [place] [address]
--- OUTSIDE RECORDS SUMMARY | 2024-10-25 00:56 | External Medical Summary | Summary of Care ---
Author Name Unknown Organization [facility] Address [address] [place] [address] Phone [phone] Care Team Providers Care Prototype Deicer Assembler Name Role Phone Amanda BROWN MD, Buddy Britton Primary Care Provider [phone] Encounter Details Date Type Department Care Team (Late st Contact Info) Description 09/04/2024 Orders Only Hematology/Oncology, [facility] [address] [place] [address] Yanet Berg MD [address] [place] [address] Allergies No known active allergiesdocumented as of this encounter (statuses as of 09/04/2024) Medications Medication Sig Dispensed Refills Start Date [...] Sprays into each nostril in the morning. [place] hand to apply. 16 g 3 11/25/2023 [...] for sleep 30 Tablet 1 07/04/2024 Active Trifluridine-Tipira cil 15-6.14 MG Oral Tablet [...] day cycle. 40 Tablet 5 08/04/2024 Active HYDROcodone-Acetami nophen 7.5-325 MG Oral TabletIndications:M alignant neoplasm of sigmoid colon (HCC) Take 1 Tablet by mouth every 6 hours as needed for Pain, Severe. 120 Tablet 08/09/2024 Active oxyCODONE HCl 5 MG Oral Tablet (Oxy IR)Indications:Clariec gnant neoplasm of sigmoid colon (HCC) Take 1 Tablet by mouth every 6 hours as needed for Pain, Severe. 120 Tablet 08/09/2024 Active Potassium Chloride ER 10 MEQ Oral Tablet Extended ReleaseIndications: Metastatic colon cancer to liver (HCC) TAKE 1 TABLET BY MOUTH IN THE MORNING 30 Tablet 09/01/2024 Active documented as of this encounter (statuses as of 09/04/2024) Active Problems Problem Noted Date Diagnosed Date Encounter for antineoplastic chemotherapy 2023 Metastatic colon cancer to liver 11/25/2023 Protein-calorie malnutrition 08/07/2023 Malignant neoplasm of sigmoid colon 04/22/2023 Encounter for antineoplastic chemotherapy 2022 documented as of this encounter (statuses as of 09/04/2024) Immunizations Name Administration Dates Next Due Pneumococcal [...] Description 09/07/2024 9:30 AM EDT Laboratory Laboratory [facility] [place] [address] [place] [phone] [address] [facility] [place] [address] 09/07/2024 10:00 AM EDT Office Visit Hematology/Oncology [facility] [place] [address] [place] [phone] Anahy Rowan CRNP 400 [facility] [place] [address] 09/07/2024 10:30 AM EDT [facility] [address] [place], [place] [phone] [place], Chair 1 Hem Onc [facility] 200 [facility] [place] [address] 09/21/2024 9:30 AM EST Pharmacy Pharmacy Hematology Oncology [place] [address] [place] [address] [facility], [facility] Clinic Hem/Onc [address] [place] [address] 10/05/2024 9:30 AM EST Office Visit Hematology/Oncology [facility] [place] [address] [place] [phone] Yanet Berg MD 200 [facility] [place] [address] 10/27/2024 7:40 AM EST Office Visit Family Practice [facility] [place] 200 [facility] [place] [address] Buddy Patel III, MD 200 [facility] [place] [address] Health Maintenance Due Date Last Done Comments [...] this encounter Medical Devices Implanted Type Area Stack Attendant Device Identifier Shelf Expiration Date Model / Serial / Lot Port Implant W/8f Poly Cath - [id number] Implanted:Qty : 1 on 05/06/2023 by Leonardo Castro DO at OR [facility] Right: Chest CR BARD : PERIPHERAL VASCULAR [id number] 07/16/2024 [id number] / / [id number] documented as of this encounter Care Teams Prototype Deicer Assembler Relationship Specialty Start Date End Date Buddy Patel III, MD [address] [place] [address] PCP - General Family Medicine 04/29/23 documented as of this encounter
--- OUTSIDE RECORDS SUMMARY | 2024-10-25 00:56 | External Medical Summary | Summary of Care ---
Author Name Unknown Organization [facility] Address [address] [place] [address] Phone [phone] Care Team Providers Care Cutch Cleaner Name Role Phone Amanda BROWN MD, Buddy Britton Primary Care Provider [phone] Reason for Visit * Reason Comments Chemotherapy Day 1 cycle 4 vertib ix/folfiri * Episode Based Medications (Routine) - Closed Specialty Diagnoses / Procedures Referred By Yany t Referred To Contact Diagnoses Malignant neoplasm of sigmoid colon (HCC) Encounter for antineoplastic chemotherapy Procedures DC LEUCOVORIN CALCIUM INJECTION DC PALONOSETRON HCL DC FLUOROURACIL INJECTION DC IRINOTECAN INJECTION DC PANITUMUMAB INJECTION Yanet Berg MD 200 [place] [address] Anc Hem/Onc [facility] Verna [address] [place] [phone] Referral ID Status Reason Start Date Expiration Date Visits Re quested Visits Authorized [id number] Closed 05/04/2024 10/16/2099 999 999 Encounter Details Date Type Department Care Team (Latest Contact Info) Description 07/20/2024 12:30 PM EDT Hem/Onc Treatment Hematology/Oncolog y Treatment, [address] [phone] Verna, Chair 5 Hem On[address] [place] [address] Malignant neoplasm of sigmoid colon (HCC)*; [...] Sprays into each nostril in the morning. [place] hand to apply. 16 g 3 11/25/2023 [...] Description 09/07/2024 9:30 AM EDT Laboratory Laboratory [facility] [place] 200 [facility] [place] [phone] Verna, Lab [address] [place] [address] 09/07/2024 10:00 AM EDT Office Visit Hematology/Oncology [facility] [place] 200 [facility] [place] [phone] Anahy Rowan CRNP [address] [place] [address] 09/07/2024 10:30 AM EDT Hem/Onc Treatment Hematology/Oncology Treatment, [place] [address] [place] [phone] Verna, Chair 1 Hem Onc [facility] 200 [facility] [place] [address] 09/21/2024 9:30 AM [facility] Pharmacy Pharmacy Hematology Oncology [address] [address] [facility], [facility] [address] 10/05/2024 9:30 AM EST Office Visit Hematology/Oncology [facility] 200 [facility] [place] [phone] Yanet Berg MD 200 [facility] [place] [address] 10/27/2024 7:40 AM EST Office Visit Family Practice [facility] 200 [facility] [place] [address] Buddy Patel III, MD 200 [facility] [place] [address] Health Maintenance Due Date Last Done Comments [...] this encounter Medical Devices Implanted Type Area Principal Accounts Clerk Device Identifier Shelf Expiration Date Model / Serial / Lot Port Implant W/8f Poly Cath - [id number] Implanted:Qty : 1 on 05/06/2023 by Leonardo Castro DO at OR [facility] Right: Chest CR BARD : PERIPHERAL VASCULAR [id number] 07/16/2024 [id number] / / [id number] documented as of this encounter Visit Diagnoses [...] at 1315, For 1 dose, Restricted per [facility] antiemetic guidelines Given 07/20/2024 12:47 PM [...] mL/hr documented in this encounter Care Teams Cutch Cleaner Relationship Specialty Start Date End Date Buddy Patel III, MD 200 [facility] [place] [address] PCP - General Family Medicine 04/29/23 documented as of this encounter
--- OUTSIDE RECORDS SUMMARY | 2024-10-25 00:56 | External Medical Summary | Summary of Care ---
Author Name Unknown Organization [facility] Address [address] [place] [address] Phone [phone] Care Team Providers Care Triage Registered Nurse Name Role Phone Amanda BROWN MD, Evelyne Britton Primary Care Provider [phone] Reason for Referral * Medication Prior Authorization - Closed Specialty Diagnoses / Procedures Referred By Yany severino Referred To Contact Diagnoses Malignant neoplasm of sigmoid colon (HCC) Evelyne Franco III, MD [address] [place] [address] Referral ID Status Reason Start Date Expiration Date Visits Re quested Visits Authorized [id number] Closed 999 999 * Medication Prior Authorization - Closed Specialty Diagnoses / Procedures Referred By Yany severino Referred To Contact Diagnoses Malignant neoplasm of sigmoid colon (HCC) Evelyne Franco III, MD [address] [place] [address] Referral ID Status Reason Start Date Expiration Date Visits Re quested Visits Authorized [id number] Closed 999 999 Reason for Visit * Reason Onset Date Comments Medication Refill 09/02/2024 Encounter Details Date Type Department Care Team (Late st Contact Info) Description 09/02/2024 Refill [facility] [address] [place] [address] Evelyne Franco III, MD [address] [place] [address] Malignant neoplasm of sigmoid colon (HCC) Allergies No known active allergiesdocumented as of this encounter (statuses as of 09/05/2024) Medications Medication Sig Dispensed Refills Start Date [...] Sprays into each nostril in the morning. [place] hand to apply. 16 g 3 11/25/2023 [...] for Pain, Severe. 120 Tablet 09/05/2024 Active ALPRAZolam 1 MG Oral Tablet (xaNAX) 1 tablet at bedtime as needed for sleep 30 Tablet 1 07/04/2024 09/02/2024 Discontinue d(Refill) HYDROcodone-Acet aminophen 7.5-325 MG Oral TabletIndication s:Malignant neoplasm of sigmoid colon (HCC) Take 1 Tablet by mouth every 6 hours as needed for Pain, Severe. 120 Tablet 08/09/2024 09/02/2024 Discontinue d(Refill) oxyCODONE HCl 5 MG Oral Tablet (Oxy IR)Indications:M alignant neoplasm of sigmoid colon (HCC) Take 1 Tablet by mouth every 6 hours as needed for Pain, Severe. 120 Tablet 08/09/2024 09/02/2024 Discontinue d(Refill) documented as of this encounter (statuses as of 09/05/2024) Active Problems Problem Noted Date Diagnosed Date Encounter for antineoplastic chemotherapy 2023 Metastatic colon cancer to liver 11/25/2023 Protein-calorie malnutrition 08/07/2023 Malignant neoplasm of sigmoid colon 04/22/2023 Encounter for antineoplastic chemotherapy 2022 documented as of this encounter (statuses as of 09/05/2024) Immunizations Name Administration Dates Next Due Pneumococcal [...] encounter Miscellaneous Notes * Telephone Encounter - Evelyne Franco III, MD - 09/05/2024 7:58 AM EDTSigned Prescriptions: Disp Refills ALPRAZolam 1 MG Oral Tablet (xaNAX) 30 Tab*1 Si tablet at bedtime as needed for sleepAuthorizing Provider: EVELYNE FRANCO III HYDROcodone-Acetaminophen 7.5-325 MG Oral *120 Ta*0 Sig: Take 1 Tablet by mouth every 6 hours as needed for Pain, Severe.Authorizing Provider: EVELYNE FRANCO III oxyCODONE HCl 5 MG Oral Tablet (Oxy IR) 120 Ta*0 Sig:Take 1 Tablet by mouth every 6 hours as needed for Pain, Severe.Authorizing Provider: EVELYNE FRANCO III * Telephone Encounter - Da Allan [facility] - 09/04/2024 9:05 AM EDT Pending Prescriptions: Disp Refills ALPRAZolam 1 MG Oral Tablet (xaNAX) 30 Tab*1 Si tablet at bedtime as needed for sleep HYDROcodone-Acetaminophen 7.5-325 MG Oral *120 Ta*0 Sig: Take 1 Tablet by mouth every 6 hours as needed for Pain, Severe. oxyCODONE HCl 5 MG Oral Tablet (Oxy IR) 120 Ta*0 Sig: Take 1 Tablet by mouth every 6 hours as needed for Pain, Severe. * Telephone Encounter - Da Allan [facility] - 09/04/2024 9:04 AM EDT I have reviewed the patients controlled substance dispensing history in the Prescription Drug Monitoring Program in compliance with the [facility] regulations before prescribing a controlled substance. PDMP checked on 09/04/2024. Pending Prescriptions: Disp Refills ALPRAZolam 1 MG Oral Tablet (xaNAX) 30 Tab*1 Si tablet at bedtime as needed for sleep HYDROcodone-Acetaminophen 7.5-325 MG Oral*120 Ta*0 Sig: Take 1 Tablet by mouth every 6 hours as needed for Pain, Severe. oxyCODONE HCl 5 MG Oral Tablet (Oxy IR) 120 Ta*0 Sig: Take 1 Tablet by mouth every 6 hours as needed for Pain, Severe. Last Visit: 07/28/2024 (in office), Visit date not found (telemedicine) Next Visit: 10/27/2024 Date medication was last filled: 08/04 08/09 Date medication is due for refill: 09/02 09/07 Pharmacy: [facility] [address] [place] [address] Is this request for a controlled substance? Yes and Urine Drug Screen Not completed Toxicology results: No results found for this or any previous visit. Please approve if appropriate. Thanks, Da Allan, PharmD Clinical Pharmacist [facility] [phone] 09/04/2024, 9:04 AM * Telephone Encounter - Benita Manning PHARM Tech - 09/02/2024 9:28 AM EDT Did you pend patient's preferred pharmacy and medication before forwarding?yes Pharmacy: [facility] [address] [place] [address] Pending Prescriptions: Disp Refills ALPRAZolam 1 MG Oral Tablet (xaNAX) 30 Tab*1 Si tablet at bedtime as needed for sleep HYDROcodone-Acetaminophen 7.5-325 MG Oral*120 Ta*0 Sig: Take 1 Tablet by mouth every 6 hours as needed for Pain, Severe. oxyCODONE HCl 5 MG Oral Tablet (Oxy [...] appointment Last date the medication was ordered: 07/04/2024,08/09/2024 Is this request for a controlled substance?Yes, What was the last refill date 07/04/2024,08/09/2024 w/ quantity 30,120 and dosage 1,7.5-325,5 and Urine Drug Screen Not completed Urine Drug Screen:No results found for this or any previous visit. Patient Phone Numbers Labs: Lab Results Component Value Date/Time CREAT 0.8 08/24/2024 08:01 AM POTASSIUM 4.2 08/24/2024 08:01 AM LDL 91 12/01/2023 08:46 AM LDL 127 04/22/2023 01:20 PM ALT <5 (L) 08/24/2024 08:01 AM HGBA1C 6.0 (A) 04/17/2023 12:00 AM documented in this encounter Plan of Treatment Upcoming Encounters Date Type Department Care Team (Late st Contact Info) Description 09/07/2024 9:30 AM EDT Laboratory Laboratory [facility] [place] [address] [place] [phone] Verna Lab [facility] [address] [place] [address] 09/07/2024 10:00 AM EDT Office Visit Hematology/Oncology [facility] [place] [address] [place] [phone] Anahy Rowan CRNP [address] [place] [address] 09/07/2024 10:30 AM EDT Hem[facility] [address] [place] [phone] Verna, Chair 1 Hem Onc [facility] [address] [place] [address] 09/21/2024 9:30 AM EST Pharmacy Pharmacy Hematology Oncology [facility] [address] [place] [address] [facility], [facility] Clinic Hem/Onc [address] [place] [address] 10/05/2024 9:30 AM EST Office Visit Hematology/Oncology [facility] [place] [address] [place] [phone] Yanet Berg MD [address] [place] [address] 10/27/2024 7:40 AM EST Office Visit Family Practice [facility] [place] [address] [place] [address] Evelyne Franco III, MD [address] [place] [address] Health Maintenance Due Date Last Done Comments [...] encounter Medical Devices Implanted Type Area Hand Tier Device Identifier Shelf Expiration Date Model / Serial / Lot Port Implant W/8f Poly Cath - [id number] Implanted:Qty : 1 on 05/06/2023 by Leonardo Castro DO at [facility] Right: Chest CR BARD : PERIPHERAL VASCULAR [id number] 07/16/2024 [id number] / / [id number] documented as of this encounter Visit Diagnoses Diagnosis Malignant neoplasm of sigmoid colon (HCC) Malignant neoplasm of sigmoid colon documented in this encounter Care Teams Triage Registered Nurse Relationship Specialty Start Date End Date Evelyne Franco III, MD 200 [facility] [place] [address] PCP - General Family Medicine 04/29/23 documented as of this encounter
--- OUTSIDE RECORDS SUMMARY | 2024-10-25 00:56 | External Medical Summary | Summary of Care ---
Author Name Unknown Organization [facility] Address [address] [place] [address] Phone [phone] Care Team Providers Care Road Maker Name Role Phone Amanda BROWN MD, Buddy Britton Primary Care Provider [phone] Reason for Visit * Reason Comments eRx-Medication Refill Encounter Details Date Type Department Care Team (Late st Contact Info) Description 09/01/2024 Refill Hematology/Oncology [facility] 200 [facility] [place] [phone] Yanet Berg MD 200 [facility] [place] [address] Metastatic colon cancer to liver (HCC) Allergies No known active allergiesdocumented as of this encounter (statuses as of 09/01/2024) Medications Medication Sig Dispensed Refills Start Date [...] Sprays into each nostril in the morning. [place] hand to apply. 16 g 3 11/25/2023 [...] for sleep 30 Tablet 1 07/04/2024 Active Trifluridine-Tip iracil 15-6.14 MG Oral Tablet [...] day cycle. 40 Tablet 5 08/04/2024 Active HYDROcodone-Acet aminophen 7.5-325 MG Oral TabletIndication [...] IN THE MORNING 30 Tablet 09/01/2024 Active Potassium Chloride ER 10 MEQ Oral Tablet Extended ReleaseIndicatio ns:Metastatic colon cancer to liver (HCC) Take 1 Tablet by mouth in the morning. 30 Tablet 08/03/2024 4 Discontinued documented as of this encounter (statuses as of 09/01/2024) Active Problems Problem Noted Date Diagnosed Date Encounter for antineoplastic chemotherapy 2023 Metastatic colon cancer to liver 11/25/2023 Protein-calorie malnutrition 08/07/2023 Malignant neoplasm of sigmoid colon 04/22/2023 Encounter for antineoplastic chemotherapy 2022 documented as of this encounter (statuses as of 09/01/2024) Immunizations Name Administration Dates Next Due Pneumococcal [...] Telephone Encounter - Diana Bo LPN - 09/01/2024 11:11 AM EDTPending Prescriptions: Disp Refills Potassium Chloride ER 10 MEQ Oral Tablet E*30 Tab*0 Sig: Take 1 Tablet by mouth in the morning. * Telephone Encounter - Diana Bo LPN - 09/01/2024 11:07 AM EDT Refill request for Potassium Chloride ER 10 meq pended below: Last Potassium, 08/24/2024: 4.2 Last Refill: 08/03/2024 Last seen: 08/03/2024 Next Appt.: 10/05/2024 documented in this encounter Plan of Treatment Upcoming Encounters Date Type Department Care Team (Late st Contact Info) Description 09/07/2024 9:30 AM EDT Laboratory Laboratory [facility] [place] 200 [facility] [place] [phone] Verna, Lab [address] [place] [address] 09/07/2024 10:00 AM EDT Office Visit Hematology/Oncology [facility] [place] 200 [facility] [place] [phone] Anahy Rowan, DEJA [address] [place] [address] 09/07/2024 10:30 AM EDT Hem/Onc Treatment Hematology/Oncology Treatment, [place] 200 [facility] [phone] Verna, Chair 1 Hem Onc [address] [place] [address] 09/21/2024 9:30 AM EST Pharmacy Pharmacy Hematology Oncology [place] [address] [place] [address] [facility], [facility] Hem/Onc [facility] [place] [address] 10/05/2024 9:30 AM EST Office Visit Hematology/Oncology [facility] 200 [facility] [place] [phone] Yanet Berg MD 200 [facility] [place] [address] 10/27/2024 7:40 AM EST Office Visit Family Practice [facility] 200 [facility] [place] [address] Buddy Patel III, MD 200 [facility] [place] [address] Health Maintenance Due Date Last Done Comments [...] this encounter Medical Devices Implanted Type Area Maintenance Team Leader Device Identifier Shelf Expiration Date Model / Serial / Lot Port Implant W/8f Poly Cath - [id number] Implanted:Qty : 1 on 05/06/2023 by Leonardo Castro DO at OR [facility] Right: Chest CR BARD : PERIPHERAL VASCULAR [id number] 07/16/2024 [id number] / / [id number] documented as of this encounter Visit Diagnoses Diagnosis Metastatic colon cancer to liver (HCC) Malignant neoplasm of colon, unspecified site documented in this encounter Care Teams Road Maker Relationship Specialty Start Date End Date Buddy Patel III, MD 200 [facility] [place] [address] PCP - General Family Medicine 04/29/23 documented as of this encounter
--- OUTSIDE RECORDS SUMMARY | 2024-10-25 00:56 | External Medical Summary | Summary of Care ---
Author Name Unknown Organization [facility] Address [address] [place] [address] Phone [phone] Care Team Providers Care Dental Practice Manager Name Role Phone Amanda BROWN MD, Buddy Britton Primary Care Provider [phone] Reason for Visit * Reason Comments Chemotherapy Day 1 cycle 4 vertib ix/folfiri * Episode Based Medications (Routine) - Closed Specialty Diagnoses / Procedures Referred By Yany t Referred To Contact Diagnoses Malignant neoplasm of sigmoid colon (HCC) Encounter for antineoplastic chemotherapy Procedures [place] LEUCOVORIN CALCIUM INJECTION [place] PALONOSETRON HCL [place] FLUOROURACIL INJECTION [place] IRINOTECAN INJECTION [place] PANITUMUMAB INJECTION Yanet Berg MD 200 [facility] [place] [address] Anc Hem/Onc [facility] Verna [address] [place] [phone] Referral ID Status Reason Start Date Expiration Date Visits Re quested Visits Authorized [id number] Closed 05/04/2024 10/16/[phone] Encounter Details Date Type Department Care Team (Latest Contact Info) Description 07/20/2024 12:30 PM EDT Hem/Onc Treatment Hematology/Oncolog y Treatment, [address] [phone] Verna, Chair 5 Hem Onc [address] [place] [address] Malignant neoplasm of sigmoid colon [...] Sprays into each nostril in the morning. [place] hand to apply. 16 g 3 11/25/2023 [...] 09/07/2024 9:30 AM EDT Laboratory Laboratory [facility] [place] 200 [facility] [place] [phone] Verna, Lab [address] [place] [address] 09/07/2024 10:00 AM EDT Office Visit Hematology/Oncology [facility] [place] 200 [facility] [place] [phone] Anahy Rowan CRNP [address] [place] [address] 09/07/2024 10:30 AM EDT Hem/Onc Treatment Hematology/Oncology Treatment, [place] [address] [place] [phone] Verna, Chair 1 Hem Onc [facility] 200 [facility] [place] [address] 09/21/2024 9:30 AM [facility] Pharmacy Pharmacy Hematology Oncology [address] [address] [facility], [facility] [address] [facility] [address] 10/05/2024 9:30 AM EST Office Visit Hematology/Oncology [facility] 200 [facility] [place] [phone] Yanet Berg MD 200 [facility] [place] [address] 10/27/2024 7:40 AM EST Office Visit Family Practice [facility] 200 [facility] [place] [address] Buddy Patel III, MD 200 [facility] [place] [address] Health Maintenance Due Date Last Done Comments [...] this encounter Medical Devices Implanted Type Area Tube Heater Device Identifier Shelf Expiration Date Model / Serial / Lot Port Implant W/8f Poly Cath - [id number] Implanted:Qty : 1 on 05/06/2023 by Leonardo Castro DO at OR [facility] Right: Chest CR BARD : PERIPHERAL VASCULAR [id number] 07/16/2024 [id number] / / [id number] documented as of this encounter Visit Diagnoses [...] at 1315, For 1 dose, Restricted per [facility] antiemetic guidelines Given 07/20/2024 12:47 PM EDT [...] mL/hr documented in this encounter Care Teams Dental Practice Manager Relationship Specialty Start Date End Date Buddy Patel III, MD 200 [facility] [place] [address] PCP - General Family Medicine 04/29/23 documented as of this encounter
--- OUTSIDE RECORDS SUMMARY | 2024-10-25 00:57 | External Medical Summary | Summary of Care ---
Author Name Unknown Organization [facility] Address [address] [place] [address] Phone [phone] Care Team Providers Care Tissue Technologist Name Role Phone Amanda BROWN MD, Buddy Britton Primary Care Provider [phone] Reason for Visit * Reason Comments Chemotherapy C1/D1 - Zirabev * Episode Based Medications (Routine) - Authorized Specialty Diagnoses / Procedures Referred By Contkim t Referred To Contact Diagnoses Malignant neoplasm of sigmoid colon (HCC) Encounter for antineoplastic chemotherapy Procedures [place] INJ., ZIRABEV, 10 MG Yanet eBrg MD [address] [place] [address] Anc Hem/Onc [address] [address] Referral ID Status Reason Start Date Expiration Date V isits Requested Visits Authorized [id number] Authorized 08/03/2024 11/15/2099 99 99 Encounter Details Date Type Department Care Team (Latest Contact Info) Description 08/10/2024 2:00 PM EDT Hem/Onc Treatment Hematology/Oncolog y Treatment, [address] [phone] Verna Chair 8 Hem Onc [address] [address] Encounter for antineoplastic chemotherapy*; Metastatic colon cancer to liver (HCC); Malignant neoplasm of sigmoid colon (HCC) Allergies No known active allergiesdocumented as of this encounter (statuses as of 08/28/2024) Medications Medication Sig Dispensed Refills Start Date [...] Sprays into each nostril in the morning. [place] hand to apply. 16 g 3 11/25/2023 [...] for sleep 30 Tablet 1 07/04/2024 Active Potassium Chloride ER 10 MEQ Oral Tablet Extended ReleaseIndicatio ns:Metastatic colon cancer to liver (HCC) Take 1 Tablet by mouth in the morning. 30 Tablet 08/03/2024 Active Trifluridine-Tip iracil 15-6.14 MG Oral Tablet [...] for Pain, Severe. 120 Tablet 08/09/2024 Active metroNIDAZOLE 500 MG Oral Tablet (Flagyl) Take 1 Tablet by mouth 2 times a day with morning and evening meals. 08/15/2024 Discontinue d(Medicatio n List Clean Up) documented as of this encounter (statuses as of 08/28/2024) Active Problems Problem Noted Date Diagnosed Date Encounter for antineoplastic chemotherapy 2023 Metastatic colon cancer to liver 11/25/2023 Protein-calorie malnutrition 08/07/2023 Malignant neoplasm of sigmoid colon 04/22/2023 Encounter for antineoplastic chemotherapy 2022 documented as of this encounter (statuses as of 08/28/2024) Immunizations Name Administration Dates Next Due Pneumococcal [...] Sign Reading Time Taken Comments Blood Pressure 105/72 08/10/2024 1:31 PM EDT Pulse 74 08/10/2024 1:31 PM EDT Temperature 36.2 C (97.1 F) 08/10/2024 1:31 PM ED T Respiratory Rate 16 08/10/2024 1:31 PM EDT Oxygen Saturation 98% 08/10/2024 1:31 PM EDT Inhaled Oxygen Concentration - - Weight 86.9 kg (191 lb 9.6 oz) 08/10/2024 1:31 P M EDT Height - - Body Mass Index 29.13 02/23/2024 9:11 AM EDT documented in this encounter Nursing Notes * Victoria Botello RN - 08/10/2024 4:00 PM EDT Goals: Patient will remain free from injury. Possible barriers to meeting goals: ambulating with IV pole Stability of the patient: Moderately stable - low risk of patient condition declining or worsening Summary regarding today's goals: Met: patient remained free of harm today Patient tolerated treatment well without any acute issues or problems. Patient left facility in stable condition and denied any further needs. * Victoria Botello RN - 08/10/2024 2:39 PM EDT Chair 11. Port accessed, no issues. Patient here for Zirabev. Patient had this medication in the past and is now restarting Zirabev andLosurf now. Patient denies any questions or concerns at this time. U/A sent to lab and RN educated patient that he will need to give a urine sample before each out these treatments in the future, pt communicated understanding. Chemotherapy/Immunotherapy agents: ZIRABEV Consent for chemotherapy drug treatment complete, dated, and signed? yes, date - 08/03/2024 Treatment lab parameters met? Yes Has treatment weight changed > than 10%? No Treatment preauthorized? Yes VITALS Filed Vitals: 08/10/24 1331 BP: 105/72 Pulse: 74 Resp: 16 Temp: 36.2 C (97.1 F) TempSrc: Tympanic SpO2: 98% Weight: 86.9 kg (191 lb 9.6 oz) Urine protein: NEGATIVE Patient [...] OTHER: denies any additional symptoms PAIN: 0 - none at this time Safety and Risk for Injury Patient will remain free from injury. Ensure appropriate safety devices are available. Provide and maintain safe environment. documented in this encounter Plan of Treatment Upcoming Encounters Date Type Department Care Team (Late st Contact Info) Description 09/07/2024 9:30 AM EDT Laboratory [place] [address] [phone] [place] [address] 09/07/2024 10:00 AM EDT Office Visit Hematology/[place] [address] Anahy Rowan CRNP [address] [facility] [place] [address] 09/07/2024 10:30 AM EDT Hem/Onc Treatment Hematology/Oncology [facility] [place] [address] [place] [phone] Verna, Chair 1 Hem Onc [facility] 200 [facility] [place] [address] 09/21/2024 9:30 AM EST Pharmacy Pharmacy Hematology Oncology [facility] [address] [place] [address] [facility], [facility] Hem/Onc [address] [place] [address] 10/05/2024 9:30 AM EST Office Visit Hematology/Oncology [facility] [place] [address] [place] [address] Yanet Berg MD 200 [facility] [place] [address] 10/27/2024 7:40 AM EST Office Visit Family Practice [facility] [place] 200 [facility] [place] [address] Buddy Patel III, MD 200 [facility] [place] [address] Health Maintenance Due Date Last Done Comments [...] this encounter Medical Devices Implanted Type Area Welder Apprentice Combination Device Identifier Shelf Expiration Date Model / Serial / Lot Port Implant W/8f Poly Cath - [id number] Implanted:Qty : 1 on 05/06/2023 by Leonardo Castro, at OR [facility] Right: Chest CR BARD : PERIPHERAL VASCULAR [id number] 07/16/2024 [id number] / / [id number] documented as of this encounter Procedures Procedure Name Priority Date/Time Associated Diagnosis Comments URINALYSIS, REFLEX TO MICROSCOPIC STAT 08/10/2024 1:46 PM EDT Metastatic colon cancer to liver (HCC) Malignant neoplasm of sigmoid colon (HCC) documented in this encounter Results * URINALYSIS, REFLEX TO MICROSCOPIC (08/10/2024 1:46 PM EDT) Color, Urine Yellow 08/10/2024 2:27 PM EDT [facility] [place] [facility]02 Clarity, Urine Clear 08/10/2024 2:27 PM EDT [facility] [place] [facility]02 Glucose, Urine Negative mg/dL 08/10/2024 2:27 PM EDT [facility] [place] 56[facility]02 Bilirubin, Urine Negative 08/10/2024 2:27 PM EDT [facility] [place] 56[facility]02 Ketone, Urine Negative mg/dL 08/10/2024 2:27 PM EDT [facility] [place] [facility]02 Specific [place], Urine <=1.005 1.003 - 1.030 08/10/2024 2:27 PM EDT [facility] [place] [facility]02 Blood, Urine Trace-intact 08/10/2024 2:27 PM EDT [place] [address] pH, Urine 5.5 5.0 - 7.5 Units 08/10/2024 2:27 PM EDT [place] [address] Protein, Urine Negative mg/dL 08/10/2024 2:[address] Urobilinogen, Urine 0.2 mg/dL 08/10/2024 2:[address] Nitrite, Urine Negative Negative 08/10/2024 2:[address] Esterase, Urine Negative Negative 08/10/2024 2:[address] RBC, Urine 0-2 0 - 2 /HPF 08/10/2024 2:[address] WBC, Urine 0-2 0 - 2 /HPF 08/10/2024 2:[address] Bacteria, Urine 0-25 0 - 25 /HPF 08/10/2024 2:27 PM EDT [address] Urine Urine specimen obtained by clean catch procedure / Unknown Non-blood Collection / Unknown 08/10/2024 1:46 PM EDT 08/10/2024 2:03 PM EDT Yanet Berg MD LAB URINE ORDERA BL[facility] Organization Address City/State/ZIP Co de Phone Number [place] [address] [place] [phone] documented in this encounter Visit Diagnoses Diagnosis Encounter for antineoplastic chemotherapy- Primary Metastatic colon cancer to liver (HCC) Malignant neoplasm of colon, unspecified site Malignant neoplasm of sigmoid colon (HCC) Malignant neoplasm of sigmoid colon documented in this encounter Administered Medications Inactive Administered Medications - up to 3 most recent administrations Medication Order MAR Action Action Date Dose Rate Site bevaCIZumab-bvzr (Zirabev) 400 mg in NSS 100 mL infusion 400 mg (rounded from 418 mg = 5 mg/kg 83.6 kg Treatment plan Recorded weight), IV Piggyback, ONCE, 1 dose, On Thu08/10/24 at 1615, Administer over 30 Minutes Start Infusion 08/10/2024 3:13 PM EDT 400 mg 210 mL/hr hEParin 100 UNIT/ML Lock Flush inj 500 Units 500 Units (5 mL), IV Lock, PRN Other, IV Flush, Starting on Thu08/10/24 at 1431, Until Thu08/10/24 at 2000, For 24 hours, Do not flush if lock, PICC, or central line not in place; IV infusing or unable to flush. Given 08/10/2024 3:53 PM EDT 500 Units NSS infusion Intravenous, at 50 mL/hr, PRN, Starting on Thu08/10/24 at 1545, Until Thu08/10/24 at 2000, Maintenance line Start Infusion 08/10/2024 3:12 PM EDT 50 mL/hr sodium chloride 0.9 % flush central line 10 mL 10 mL, IV Push, PRN Other, IV Flush, Starting on Thu08/10/24 at 1431, Until Thu08/10/24 at 2000, For 24 hours, Do not flush if lock, PICC, or central line not in place; IV infusing or unable to flush. Given 08/10/2024 3:53 PM EDT 10 mL documented in this encounter Care Teams Tissue Technologist Relationship Specialty Start Date End Date Buddy Patel III, MD 200 [facility] [place] [address] PCP - General Family Medicine 04/29/23 documented as of this encounter
--- OUTSIDE RECORDS SUMMARY | 2024-10-25 00:57 | External Medical Summary | Summary of Care ---
Author Name Unknown Organization [facility] Address [address] [place] [address] Phone [phone] Care Team Providers Care Associate Dean Name Role Phone Amanda BROWN MD, Buddy Britton Primary Care Provider [phone] Reason for Visit * Reason Comments Chemotherapy Day 1 cycle 4 vertib ix/folfiri * Episode Based Medications (Routine) - Closed Specialty Diagnoses / Procedures Referred By Yany t Referred To Contact Diagnoses Malignant neoplasm of sigmoid colon (HCC) Encounter for antineoplastic chemotherapy Procedures [place] LEUCOVORIN CALCIUM INJECTION RI PALONOSETRON HCL RI FLUOROURACIL INJECTION RI IRINOTECAN INJECTION RI PANITUMUMAB INJECTION Yanet Berg MD 200 [facility] [place] [address] Anc Hem/Onc [facility] Verna [address] [place] [phone] Referral ID Status Reason Start Date Expiration Date Visits Re quested Visits Authorized [id number] Closed 05/04/2024 10/16/[phone] Encounter Details Date Type Department Care Team (Latest Contact Info) Description 07/20/2024 12:30 PM EDT Hem/Onc Treatment Hematology/Oncolog y Treatment, [address] [phone] Verna, Chair 5 Hem Onc [address] [place] [address] Malignant neoplasm of sigmoid colon (HCC)*; Encounter for antineoplastic chemotherapy Allergies No known active allergiesdocumented as of this encounter (statuses as of 08/30/2024) Medications Medication Sig Dispensed Refills Start Date [...] Sprays into each nostril in the morning. [place] hand to apply. 16 g 3 11/25/2023 [...] mouth in the morning. 14 Tablet 07/12/2024 4 Discontinue d(Refill) documented as of this encounter (statuses as of 08/30/2024) Active Problems Problem Noted Date Diagnosed Date Metastatic colon cancer to liver 11/25/2023 Protein-calorie malnutrition 08/07/2023 Malignant neoplasm of sigmoid colon 04/22/2023 Encounter for antineoplastic chemotherapy 2022 documented as of this encounter (statuses as of 08/30/2024) Immunizations Name Administration Dates Next Due Pneumococcal [...] 09/07/2024 9:30 AM EDT Laboratory Laboratory [facility] [place] 200 [facility] [place] [phone] Verna, Lab [address] [place] [address] 09/07/2024 10:00 AM EDT Office Visit Hematology/Oncology [facility] [place] 200 [facility] [place] [phone] Anahy Rowan CRNP [address] [place] [address] 09/07/2024 10:30 AM EDT Hem/Onc Treatment Hematology/Oncology Treatment, [place] [address] [place] [phone] Verna, Chair 1 Hem Onc [facility] 200 [facility] [place] [address] 09/21/2024 9:30 AM [facility] Pharmacy Pharmacy Hematology Oncology [address] [address] [facility], [facility] [address] 10/05/2024 9:30 AM EST Office Visit Hematology/Oncology [facility] 200 [facility] [place] [phone] Yanet Berg MD 200 [facility] [place] [address] 10/27/2024 7:40 AM EST Office Visit Family Practice [facility] 200 [facility] [place] [address] Buddy Patel III, MD 200 [facility] [place] [address] Health Maintenance Due Date Last Done Comments [...] this encounter Medical Devices Implanted Type Area Litigation Associate Device Identifier Shelf Expiration Date Model / Serial / Lot Port Implant W/8f Poly Cath - [id number] Implanted:Qty : 1 on 05/06/2023 by Leonardo Castro DO at OR [facility] Right: Chest CR BARD : PERIPHERAL VASCULAR [id number] 07/16/2024 [id number] / / [id number] documented as of this encounter Visit Diagnoses [...] at 1315, For 1 dose, Restricted per [facility] antiemetic guidelines Given 07/20/2024 12:47 PM [...] mL/hr documented in this encounter Care Teams Associate Dean Relationship Specialty Start Date End Date Buddy Patel III, MD 200 [facility] [place] [address] PCP - General Family Medicine 04/29/23 documented as of this encounter
--- OUTSIDE RECORDS SUMMARY | 2024-10-25 00:57 | External Medical Summary | Summary of Care ---
Author Name Unknown Organization [facility] Address [address] [place] [address] Phone [phone] Care Team Providers Care Smoked Meat Preparer Name Role Phone Amanda BROWN MD, Buddy Britton Primary Care Provider [phone] Reason for Visit * Reason Comments Chemotherapy Day 1 cycle 4 vertib ix/folfiri * Episode Based Medications (Routine) - Closed Specialty Diagnoses / Procedures Referred By Yany t Referred To Contact Diagnoses Malignant neoplasm of sigmoid colon (HCC) Encounter for antineoplastic chemotherapy Procedures DE LEUCOVORIN CALCIUM INJECTION DE PALONOSETRON HCL DE FLUOROURACIL INJECTION DE IRINOTECAN INJECTION DE PANITUMUMAB INJECTION Yanet Berg MD 200 [place] [address] Anc Hem/Onc [facility] [place] [address] [place] [phone] Referral ID Status Reason Start Date Expiration Date Visits Re quested Visits Authorized [id number] Closed 05/04/2024 10/16/[phone] Encounter Details Date Type Department Care Team (Latest Contact Info) Description 07/20/2024 12:30 PM EDT Hem/Onc Treatment Hematology/Oncolog y Treatment, [address] [address] Verna, Chair 5 Hem Onc [address] [place] [address] Malignant neoplasm of sigmoid colon (HCC)*; [...] Sprays into each nostril in the morning. [place] hand to apply. 16 g 3 [...] Description 09/07/2024 9:30 AM EDT Laboratory Laboratory [facility] [place] 200 [facility] [place] [phone] Verna, Lab [address] [place] [address] 09/07/2024 10:00 AM EDT Office Visit Hematology/Oncology [facility] [place] 200 [facility] [place] [phone] Anahy Rowan CRNP [address] [place] [address] 09/07/2024 10:30 AM EDT Hem/Onc Treatment Hematology/Oncology Treatment, [place] [address] [place] [phone] Verna, Chair 1 Hem Onc [facility] 200 [facility] [place] [address] 09/21/2024 9:30 AM [facility] Pharmacy Pharmacy Hematology Oncology [address] [address] [facility], [facility] [address] 10/05/2024 9:30 AM EST Office Visit Hematology/Oncology [facility] 200 [facility] [place] [phone] Yanet Berg MD 200 [facility] [place] [address] 10/27/2024 7:40 AM EST Office Visit Family Practice [facility] 200 [facility] [place] [address] Buddy Patel III, MD 200 [facility] [place] [address] Health Maintenance Due Date Last Done Comments [...] this encounter Medical Devices Implanted Type Area Program Or Project Administrator Device Identifier Shelf Expiration Date Model / Serial / Lot Port Implant W/8f Poly Cath - [id number] Implanted:Qty : 1 on 05/06/2023 by Leonardo Castro DO at OR [facility] Right: Chest CR BARD : PERIPHERAL VASCULAR [id number] 07/16/2024 [id number] / / [id number] documented as of this encounter Visit Diagnoses [...] at 1315, For 1 dose, Restricted per [facility] antiemetic guidelines Given 07/20/2024 12:47 [...] mL/hr documented in this encounter Care Teams Smoked Meat Preparer Relationship Specialty Start Date End Date Buddy Patel III, MD 200 [facility] [address] PCP - General Family Medicine 04/29/23 documented as of this encounter
--- OUTSIDE RECORDS SUMMARY | 2024-10-25 00:57 | External Medical Summary | Summary of Care ---
Author Name Unknown Organization [facility] Address [address] [place] [address] Phone [phone] Care Team Providers Care Activity Aide Name Role Phone Amanda BROWN MD, Buddy Britton Primary Care Provider [phone] Reason for Visit * Reason Comments Chemotherapy Day 1 cycle 4 vertib ix/folfiri * Episode Based Medications (Routine) - Closed Specialty Diagnoses / Procedures Referred By Yany t Referred To Contact Diagnoses Malignant neoplasm of sigmoid colon (HCC) Encounter for antineoplastic chemotherapy Procedures [place] LEUCOVORIN CALCIUM INJECTION [place] PALONOSETRON HCL [place] FLUOROURACIL INJECTION [place] IRINOTECAN INJECTION [place] PANITUMUMAB INJECTION Yanet Berg MD 200 [place] [address] Anc Hem/Onc [facility] Verna [address] [place] [phone] Referral ID Status Reason Start Date Expiration Date Visits Re quested Visits Authorized [id number] Closed 05/04/2024 10/16/[phone] Encounter Details Date Type Department Care Team (Latest Contact Info) Description 07/20/2024 12:30 PM EDT Hem/Onc Treatment Hematology/Oncolog y Treatment, [address] [phone] Verna, Chair 5 Hem Onc [address] [place] [address] Malignant neoplasm of sigmoid colon (HCC)*; [...] Sprays into each nostril in the morning. [place] hand to apply. 16 g 3 11/25/2023 [...] Description 09/07/2024 9:30 AM EDT Laboratory Laboratory [facility] [place] 200 [facility] [place] [phone] Verna, Lab [address] [place] [address] 09/07/2024 10:00 AM EDT Office Visit Hematology/Oncology [facility] [place] 200 [facility] [place] [phone] Anahy Rowan CRNP [address] [place] [address] 09/07/2024 10:30 AM EDT Hem/Onc Treatment Hematology/Oncology Treatment, [place] [address] [place] [phone] Verna, Chair 1 Hem Onc [facility] 200 [facility] [place] [address] 09/21/2024 9:30 AM [facility] Pharmacy Pharmacy Hematology Oncology [address] [address] [facility] [address] 10/05/2024 9:30 AM EST Office Visit Hematology/Oncology [facility] 200 [facility] [place] [phone] Yanet Berg MD 200 [facility] [place] [address] 10/27/2024 7:40 AM EST Office Visit Family Practice [facility] 200 [facility] [place] [address] Buddy Patel III, MD 200 [facility] [place] [address] Health Maintenance Due Date Last Done Comments [...] this encounter Medical Devices Implanted Type Area Cello Teacher Device Identifier Shelf Expiration Date Model / Serial / Lot Port Implant W/8f Poly Cath - [id number] Implanted:Qty : 1 on 05/06/2023 by Leonardo Castro DO at OR [facility] Right: Chest CR BARD : PERIPHERAL VASCULAR [id number] 07/16/2024 [id number] / / [id number] documented as of this encounter Visit Diagnoses [...] For 1 dose, Restricted per [facility] antiemetic guidelines Given 07/20/2024 12:47 [...] mL/hr documented in this encounter Care Teams Activity Aide Relationship Specialty Start Date End Date Buddy Patel III, MD 200 [place] [place] [address] PCP - General Family Medicine 04/29/23 documented as of this encounter
--- OUTSIDE RECORDS SUMMARY | 2024-10-25 00:57 | External Medical Summary | Summary of Care ---
Author Name Unknown Organization [facility] Address [address] [place] [address] Phone [phone] Care Team Providers Care Field Sales Agent Name Role Phone Amanda BROWN MD, Buddy Britton Primary Care Provider [phone] Reason for Visit * Reason Comments Chemotherapy Day 1 cycle 4 vertib ix/folfiri * Episode Based Medications (Routine) - Closed Specialty Diagnoses / Procedures Referred By Yany t Referred To Contact Diagnoses Malignant neoplasm of sigmoid colon (HCC) Encounter for antineoplastic chemotherapy Procedures [place] LEUCOVORIN CALCIUM INJECTION [place] PALONOSETRON HCL [place] FLUOROURACIL INJECTION [place] IRINOTECAN INJECTION [place] PANITUMUMAB INJECTION Yanet Berg MD 200 [facility] [place] [address] Anc Hem/Onc [facility] Verna [address] [place] [phone] Referral ID Status Reason Start Date Expiration Date Visits Re quested Visits Authorized [id number] Closed 05/04/2024 10/16/[phone] Encounter Details Date Type Department Care Team (Latest Contact Info) Description 07/20/2024 12:30 PM EDT Hem/Onc Treatment Hematology/Oncolog y Treatment, [address] [address] Verna, Chair 5 Hem Onc [address] [place] [address] Malignant neoplasm of sigmoid colon (HCC)*; [...] Sprays into each nostril in the morning. [place] hand to apply. 16 g 3 11/25/2023 [...] 09/07/2024 9:30 AM EDT Laboratory Laboratory [facility] [place] 200 [facility] [place] [phone] Verna, Lab [address] [place] [address] 09/07/2024 10:00 AM EDT Office Visit Hematology/Oncology [facility] [place] 200 [facility] [place] [phone] Anahy Rowan CRNP [address] [place] [address] 09/07/2024 10:30 AM EDT Hem/Onc Treatment Hematology/Oncology Treatment, [place] [address] [place] [phone] Verna, Chair 1 Hem Onc [facility] 200 [facility] [place] [address] 09/21/2024 9:30 AM [facility] Pharmacy Pharmacy Hematology Oncology [address] [address] [facility]c [facility] [address] 10/05/2024 9:30 AM EST Office Visit Hematology/Oncology [facility] 200 [facility] [place] [phone] Yanet Berg MD 200 [facility] [place] [address] 10/27/2024 7:40 AM EST Office Visit Family Practice [facility] 200 [facility] [place] [address] Buddy Patel III, MD 200 [facility] [place] [address] Health Maintenance Due Date Last Done Comments [...] this encounter Medical Devices Implanted Type Area Collections Manager Device Identifier Shelf Expiration Date Model / Serial / Lot Port Implant W/8f Poly Cath - [id number] Implanted:Qty : 1 on 05/06/2023 by Leonardo Castro DO at OR [facility] Right: Chest CR BARD : PERIPHERAL VASCULAR [id number] 07/16/2024 [id number] / / [id number] documented as of this encounter Visit Diagnoses [...] at 1315, For 1 dose, Restricted per [facility] antiemetic guidelines Given 07/20/2024 12:47 PM EDT [...] mL/hr documented in this encounter Care Teams Field Sales Agent Relationship Specialty Start Date End Date Buddy Patel III, MD 200 [facility] [place] [address] PCP - General Family Medicine 04/29/23 documented as of this encounter
--- OUTSIDE RECORDS SUMMARY | 2024-10-25 00:57 | External Medical Summary | Summary of Care ---
Author Name Unknown Organization [facility] Address [address] [place] [address] Phone [phone] Care Team Providers Care Field Service Rep Name Role Phone Amanda BROWN MD, Buddy Britton Primary Care Provider [phone] Reason for Visit * Reason Comments Chemotherapy C1/D1 - Zirabev * Episode Based Medications (Routine) - Authorized Specialty Diagnoses / Procedures Referred By Contkim t Referred To Contact Diagnoses Malignant neoplasm of sigmoid colon (HCC) Encounter for antineoplastic chemotherapy Procedures MA INJ., ZIRABEV, 10 MG Yanet Berg MD [address] [place] [address] Anc Hem/Onc [address] [phone] Referral ID Status Reason Start Date Expiration Date V isits Requested Visits Authorized [id number] Authorized 08/03/2024 11/15/2099 99 [phone] Encounter Details Date Type Department Care Team (Latest Contact Info) Description 08/10/2024 2:00 PM EDT Hem/Onc Treatment Hematology/Oncolog y Treatment, [address] [address] Verna Chair 8 Hem Onc [address] [address] Encounter for antineoplastic chemotherapy*; Metastatic colon cancer to liver (HCC); Malignant neoplasm of sigmoid colon (HCC) Allergies No known active allergiesdocumented as of this encounter (statuses as of 08/27/2024) Medications Medication Sig Dispensed Refills Start Date [...] Sprays into each nostril in the morning. [place] hand to apply. 16 g 3 11/25/2023 [...] as of this encounter (statuses as of 08/27/2024) Active Problems Problem Noted Date Diagnosed Date Encounter for antineoplastic chemotherapy 2023 Metastatic colon cancer to liver 11/25/2023 Protein-calorie malnutrition 08/07/2023 Malignant neoplasm of sigmoid colon 04/22/2023 Encounter for antineoplastic chemotherapy 2022 documented as of this encounter (statuses as of 08/27/2024) Immunizations Name Administration Dates Next Due Pneumococcal [...] Laboratory [place] [address] [phone] [place] [address] 09/07/2024 10:00 AM EDT Office Visit Hematology/[place] [phone] Anahy Rowan CRNP 400 [facility] [place] [address] 09/07/2024 10:30 AM EDT Hem/Onc Treatment Hematology/Oncology [facility] [place] [address] [place] [phone] Verna, Chair 1 Hem Onc [facility] 200 [facility] [place] [address] 09/21/2024 9:30 AM EST Pharmacy Pharmacy Hematology Oncology [facility] [address] [place] [address] [facility], [facility] Hem/Onc [address] [place] [address] 10/05/2024 9:30 AM EST Office Visit Hematology/Oncology [facility] [place] [address] [place] [phone] Yanet Berg MD 200 [facility] [place] [address] 10/27/2024 7:40 AM EST Office Visit Family Practice [facility] [place] 200 [facility] [place] [address] Buddy Patel III, MD 200 [facility] [place] [address] Health Maintenance Due Date Last Done Comments [...] this encounter Medical Devices Implanted Type Area Parts Fabricator Device Identifier Shelf Expiration Date Model / Serial / Lot Port Implant W/8f Poly Cath - [id number] Implanted:Qty : 1 on 05/06/2023 by Leonardo Castro, at OR [facility] Right: Chest CR BARD : PERIPHERAL VASCULAR [id number] 07/16/2024 [id number] / / [id number] documented as of this encounter Procedures Procedure Name Priority Date/Time Associated Diagnosis Comments URINALYSIS, REFLEX TO MICROSCOPIC STAT 08/10/2024 1:46 PM EDT Metastatic colon cancer to liver (HCC) Malignant neoplasm of sigmoid colon (HCC) documented in this encounter Results * URINALYSIS, REFLEX TO MICROSCOPIC (08/10/2024 1:46 PM EDT) Color, Urine Yellow 08/10/2024 2:27 PM EDT LAB[facility] [place] 56[facility]02 Clarity, Urine Clear 08/10/2024 2:27 PM EDT [facility] [place] [facility] Glucose, Urine Negative mg/dL 08/10/2024 2:27 PM EDT [facility] [place] [facility] Bilirubin, Urine Negative 08/10/2024 2:27 PM EDT [facility] [place] [facility] Ketone, Urine Negative mg/dL 08/10/2024 2:27 PM EDT [facility] [place] [facility] Specific [place], Urine <=1.005 1.003 - 1.030 08/10/2024 2:27 PM EDT [facility] [place] [facility] Blood, Urine Trace-intact 08/10/2024 2:27 PM EDT [place] [address] pH, Urine 5.5 5.0 - 7.5 Units 08/10/2024 2:27 PM EDT [place] [address] Protein, Urine Negative mg/dL 08/10/2024 2:[address] Urobilinogen, Urine 0.2 mg/dL 08/10/2024 2:[address] Nitrite, Urine Negative Negative 08/10/2024 2:27 [address]T [address] Esterase, Urine Negative Negative 08/10/2024 2:[address] RBC, Urine 0-2 0 - 2 /HPF 08/10/2024 2:[address] WBC, Urine 0-2 0 - 2 /HPF 08/10/2024 2:27 [address]T [address] Bacteria, Urine 0-25 0 - 25 /HPF 08/10/2024 2:27 PM EDT [address] Urine Urine specimen obtained by clean catch procedure / Unknown Non-blood Collection / Unknown 08/10/2024 1:46 PM EDT 08/10/2024 2:03 PM EDT Yanet Berg MD LAB URINE [facility] Organization Address City/State/ZIP Co de Phone Number [place] [address] [place] [phone] documented in this encounter Visit Diagnoses Diagnosis [...] mL documented in this encounter Care Teams Field Service Rep Relationship Specialty Start Date End Date Buddy Patel III, MD 200 [facility] [place] [address] PCP - General Family Medicine 04/29/23 documented as of this encounter
--- OUTSIDE RECORDS SUMMARY | 2024-10-25 00:57 | External Medical Summary | Summary of Care ---
Author Name Unknown Organization [facility] Address [address] [place] [address] Phone [phone] Care Team Providers Care Broker In Charge Name Role Phone Amanda BROWN MD, Buddy Britton Primary Care Provider [phone] Reason for Visit * Reason Comments Chemotherapy Day 1 cycle 4 vertib ix/folfiri * Episode Based Medications (Routine) - Closed Specialty Diagnoses / Procedures Referred By Yany t Referred To Contact Diagnoses Malignant neoplasm of sigmoid colon (HCC) Encounter for antineoplastic chemotherapy Procedures MA LEUCOVORIN CALCIUM INJECTION [place] PALONOSETRON HCL MA FLUOROURACIL INJECTION MA IRINOTECAN INJECTION [place] PANITUMUMAB INJECTION Yanet Berg MD 200 [place] [address] Anc Hem/Onc [facility] Verna [address] [place] [phone] Referral ID Status Reason Start Date Expiration Date Visits Re quested Visits Authorized [id number] Closed 05/04/2024 10/16/[phone] Encounter Details Date Type Department Care Team (Latest Contact Info) Description 07/20/2024 12:30 PM EDT Hem/Onc Treatment Hematology/Oncolog y Treatment, [address] [phone] Verna, Chair 5 Hem Onc [address] [place] [address] Malignant neoplasm of sigmoid colon [...] Sprays into each nostril in the morning. [place] hand to apply. 16 g 3 11/25/2023 [...] Description 09/07/2024 9:30 AM EDT Laboratory Laboratory [facility] [place] 200 [facility] [place] [phone] Verna, Lab [address] [place] [address] 09/07/2024 10:00 AM EDT Office Visit Hematology/Oncology [facility] [place] 200 [facility] [place] [phone] Anahy Rowan CRNP [address] [place] [address] 09/07/2024 10:30 AM EDT Hem/Onc Treatment Hematology/Oncology Treatment, [place] [address] [place] [phone] Verna, Chair 1 Hem Onc [facility] 200 [facility] [place] [address] 09/21/2024 9:30 AM [facility] Pharmacy Pharmacy Hematology Oncology [address] [address] [facility], [facility]c [facility] [address] 10/05/2024 9:30 AM EST Office Visit Hematology/Oncology [facility] 200 [facility] [place] [phone] Yanet Berg MD 200 [facility] [place] [address] 10/27/2024 7:40 AM EST Office Visit Family Practice [facility] 200 [facility] [place] [address] Buddy Patel III, MD 200 [facility] [place] [address] Health Maintenance Due Date Last Done Comments [...] this encounter Medical Devices Implanted Type Area Woolen Tester Device Identifier Shelf Expiration Date Model / Serial / Lot Port Implant W/8f Poly Cath - [id number] Implanted:Qty : 1 on 05/06/2023 by Leonardo Castro DO at OR [facility] Right: Chest CR BARD : PERIPHERAL VASCULAR [id number] 07/16/2024 [id number] / / [id number] documented as of this encounter Visit Diagnoses [...] mL/hr documented in this encounter Care Teams Broker In Charge Relationship Specialty Start Date End Date Buddy Patel III, MD 200 [facility] [place] [address] PCP - General Family Medicine 04/29/23 documented as of this encounter
--- OUTSIDE RECORDS SUMMARY | 2024-10-25 00:57 | External Medical Summary | Summary of Care ---
Author Name Unknown Organization [facility] Address [address] [place] [address] Phone [phone] Care Team Providers Care Pipe Washer Name Role Phone Amanda BROWN MD, Buddy Britton Primary Care Provider [phone] Reason for Visit * Reason Comments Chemotherapy C1 D 15 Zirabev * Episode Based Medications (Routine) - Authorized Specialty Diagnoses / Procedures Referred By Contkim t Referred To Contact Diagnoses Malignant neoplasm of sigmoid colon (HCC) Encounter for antineoplastic chemotherapy Procedures [place] INJ., ZIRABEV, 10 MG Yanet Berg MD [address] [place] [address] Anc Hem/Onc [address] [address] Referral ID Status Reason Start Date Expiration Date V isits Requested Visits Authorized [id number] Authorized 08/03/2024 11/15/2099 99 99 Encounter Details Date Type Department Care Team (Latest Contact Info) Description 08/24/2024 9:00 AM EDT Hem/Onc Treatment Hematology/Oncolog y Treatment, [address] [phone] Verna, Chair 3 Hem Onc [address] [place] [address] Malignant neoplasm of sigmoid colon (HCC)*; Encounter for antineoplastic chemotherapy Allergies No known active allergiesdocumented as of this encounter (statuses as of 08/25/2024) Medications Medication Sig Dispensed Refills Start Date [...] Sprays into each nostril in the morning. [place] hand to apply. 16 g 3 11/25/2023 [...] ReleaseIndications: Metastatic colon cancer to liver (HCC) Take 1 Tablet by mouth in the morning. 30 Tablet 08/03/2024 Active Trifluridine-Tipira cil 15-6.14 MG Oral Tablet [...] meal. On days 1-5 and - of day cycle. 40 Tablet 5 08/04/2024 Active [...] for Pain, Severe. 120 Tablet 08/09/2024 Active documented as of this encounter (statuses as of 08/25/2024) Active Problems Problem Noted Date Diagnosed Date Encounter for antineoplastic chemotherapy 2023 Metastatic colon cancer to liver 11/25/2023 Protein-calorie malnutrition 08/07/2023 Malignant neoplasm of sigmoid colon 04/22/2023 Encounter for antineoplastic chemotherapy 2022 documented as of this encounter (statuses as of 08/25/2024) Immunizations Name Administration Dates Next Due Pneumococcal [...] Pt discharged in stable condition. * Phylicia Schwartz, BIBI - 08/24/2024 11:37 AM EDT Chair 4 Patient here for treatment. Port accessed with brisk blood return. Patient offers no acute complaints. Chemotherapy/Immunotherapy agents: BETY Consent for chemotherapy drug treatment complete, dated, [...] Description 09/07/2024 9:30 AM EDT Laboratory Laboratory [facility] [address] [place] [phone] Verna, Lab [address] [place] [address] 09/07/2024 10:00 AM EDT Office Visit Hematology/Oncology [facility] [address] [place] [phone] Anahy Rowan CRNP 400 [place] [address] 09/07/2024 10:30 AM EDT Hem/Onc Treatment Hematology/Oncology Treatment, [place] 200 [facility] [place] [phone] Verna, Chair 1 Hem Onc [address] [place] [address] 09/21/2024 9:30 AM EST Pharmacy Pharmacy Hematology Oncology [facility] [place] [address] [place] [address] [facility], [facility] Hem/Onc [address] [place] [address] 10/05/2024 9:30 AM EST Office Visit Hematology/Oncology [facility] 200 [facility] [place] [phone] Yanet Berg MD 200 [facility] [place] [address] 10/27/2024 7:40 AM EST Office Visit Family Practice [facility] 200 [facility] [place] [address] Buddy Patel III, MD 200 [facility] [place] [address] Health Maintenance Due Date Last Done Comments [...] this encounter Medical Devices Implanted Type Area Private Branch Exchange Repairer Device Identifier Shelf Expiration Date Model / Serial / Lot Port Implant W/8f Poly Cath - [id number] Implanted:Qty : 1 on 05/06/2023 by Leonardo Castro, DO at OR [facility] Right: Chest CR BARD : PERIPHERAL VASCULAR [id number] 07/16/2024 [id number] / / [id number] documented as of this encounter Visit Diagnoses [...] On Thu08/24/24 at 1115, Administer over 30 Minutes Start Infusion 08/24/2024 10:14 AM EDT 400 mg 210 mL/hr hEParin 100 UNIT/ML Lock Flush inj 500 Units 500 Units (5 mL), IV Lock, PRN Other, IV Flush, Starting on Thu08/24/24 at 0936, Until Thu08/24/24 at 1545, For 24 hours, Do not flush if lock, PICC, or central line not in place; IV infusing or unable to flush. Given 08/24/2024 10:48 AM EDT 500 Units NSS infusion Intravenous, at 50 mL/hr, PRN, Starting on Thu08/24/24 at 1045, Until Thu08/24/24 at 1545, Maintenance line Start Infusion 08/24/2024 10:11 AM EDT 50 mL/hr sodium chloride 0.9 % flush central line 10 mL 10 mL, IV Push, PRN Other, IV Flush, Starting on Thu08/24/24 at 0936, Until Thu08/24/24 at 1545, For 24 hours, Do not flush if lock, PICC, or central line not in place; IV infusing or unable to flush. Given 08/24/2024 10:47 AM EDT 10 mL documented in this encounter Care Teams Pipe Washer Relationship Specialty Start Date End Date Buddy Patel III, MD 200 [facility] [place] [address] PCP - General Family Medicine 04/29/23 documented as of this encounter
--- OUTSIDE RECORDS SUMMARY | 2024-10-25 00:57 | External Medical Summary | Summary of Care ---
Author Name Unknown Organization [facility] Address [address] [place] [address] Phone [phone] Care Team Providers Care Merry Go Round Operator Name Role Phone Amanda BROWN MD, Buddy Britton Primary Care Provider [phone] Reason for Visit * Reason Comments Treatment Chemo pump disconnec t/port flush * Episode Based Medications (Routine) - Closed Specialty Diagnoses / Procedures Referred By Yany t Referred To Contact Diagnoses Malignant neoplasm of sigmoid colon (HCC) Encounter for antineoplastic chemotherapy Procedures AL LEUCOVORIN CALCIUM INJECTION AL PALONOSETRON HCL AL FLUOROURACIL INJECTION AL IRINOTECAN INJECTION AL PANITUMUMAB INJECTION Yanet Berg MD [address] [place] [address] [place] [address] Anc Hem/Onc [address] [address] Referral ID Status Reason Start Date Expiration Date Visits Re quested Visits Authorized [id number] Closed 05/04/2024 10/16/[phone] Encounter Details Date Type Department Care Team (Latest Contact Info) Description 07/22/2024 2:00 PM EDT Immunization/ Injection Hematology/Oncology Treatment, [address] [phone] Verna, Chair 9 Hem On[address] [place] [address] Malignant neoplasm of sigmoid colon (HCC)*; Encounter for antineoplastic chemotherapy; Encounter for adjust and management of unsp implanted device Allergies No known active allergiesdocumented as of [...] Sprays into each nostril in the morning. [place] hand to apply. 16 g 3 11/25/2023 [...] needed for Pain, Severe. 120 Tablet 07/08/2024 4 Discontinue d(Refill) Potassium Chloride ER 10 MEQ [...] Nursing Notes * Patricia Bullard RN - 07/22/2024 2:00 PM EDT Patient arrived for chemo pump disconnect/port flush. Patient with no complaints at this time. VAD + blood return, flushed with 10 ml NSS and Heparin 5 ml (100 units/ml). Vazquez needle removed intact. Dry dressing applied. Patient discharged home in stable condition documented in this encounter Plan of Treatment Upcoming Encounters Date Type Department Care Team (Late st Contact Info) Description 09/07/2024 9:30 AM EDT Laboratory Laboratory [facility] [place] 200 [facility] [place] [phone] Verna, Lab [address] [facility] [place] [address] 09/07/2024 10:00 AM EDT Office Visit Hematology/Oncology [facility] [address] [place] [phone] Anahy Rowan CRNP [address] [place] [address] 09/07/2024 10:30 AM EDT Hem/Onc Treatment Hematology/Oncology Treatment, [place] 200 [facility] [place] [phone] Verna, Chair 1 Hem Onc [address] [place] [address] 09/21/2024 9:30 AM EST Pharmacy Pharmacy Hematology Oncology [facility] [address] [place] [address] [facility], [facility] Hem/Onc [address] [place] [address] 10/05/2024 9:30 AM EST Office Visit Hematology/Oncology [facility] Verna [address] [place] [phone] Yanet Berg MD 200 [facility] [place] [address] 10/27/2024 7:40 AM EST Office Visit Family Practice [facility] Verna [place] [address] [place] [address] Buddy Patel III, MD [address] [place] [address] Health Maintenance Due Date Last Done Comments [...] this encounter Medical Devices Implanted Type Area Retail Department Supervisor Device Identifier Shelf Expiration Date Model / Serial / Lot Port Implant W/8f Poly Cath - [id number] Implanted:Qty : 1 on 05/06/2023 by Leonardo Castro, at OR [facility] Right: Chest CR BARD : PERIPHERAL VASCULAR [id number] 07/16/2024 [id number] / / [id number] documented as of this encounter Visit Diagnoses Diagnosis Malignant neoplasm of sigmoid colon (HCC)- Primary Malignant neoplasm of sigmoid colon Encounter for antineoplastic chemotherapy Encounter for adjust and management of unsp implanted device documented in this encounter Administered Medications Inactive Administered Medications - up to 3 most recent administrations Medication Order MAR Action Action Date Dose Rate Site hEParin 100 UNIT/ML Lock Flush inj 500 Units 500 Units (5 mL), IV Lock, PRN Other, IV Flush, Starting on Thu07/22/24 at 1410, Until Thu07/22/24 at 1822, For 24 hours, Do not flush if lock, PICC, or central line not in place; IV infusing or unable to flush. Given 07/22/2024 2:10 PM EDT 500 Units sodium chloride 0.9 % flush central line 10 mL 10 mL, IV Push, PRN Other, IV Flush, Starting on Thu07/22/24 at 1410, Until Thu07/22/24 at 1822, For 24 hours, Do not flush if lock, PICC, or central line not in place; IV infusing or unable to flush. Given 07/22/2024 2:10 PM EDT 10 mL documented in this encounter Care Teams Merry Go Round Operator Relationship Specialty Start Date End Date Amanda III, Buddy Britton MD 200 [facility] [place] [address] PCP - General Family Medicine 04/29/23 documented as of this encounter
--- OUTSIDE RECORDS SUMMARY | 2024-10-25 00:57 | External Medical Summary | Summary of Care ---
Author Name Unknown Organization [facility] Address [address] [place] [address] Phone [phone] Care Team Providers Care Formation Testing Operator Name Role Phone Amanda BROWN MD, Buddy Britton Primary Care Provider [phone] Reason for Visit * Reason Comments Chemotherapy Day 1 cycle 4 vertib ix/folfiri * Episode Based Medications (Routine) - Closed Specialty Diagnoses / Procedures Referred By Yany t Referred To Contact Diagnoses Malignant neoplasm of sigmoid colon (HCC) Encounter for antineoplastic chemotherapy Procedures IA LEUCOVORIN CALCIUM INJECTION IA PALONOSETRON HCL IA FLUOROURACIL INJECTION IA IRINOTECAN INJECTION IA PANITUMUMAB INJECTION Yanet Berg MD 200 [place] [address] Anc Hem/Onc [facility] Verna [address] [place] [phone] Referral ID Status Reason Start Date Expiration Date Visits Re quested Visits Authorized [id number] Closed 05/04/2024 10/16/[phone] Encounter Details Date Type Department Care Team (Latest Contact Info) Description 07/20/2024 12:30 PM EDT Hem/Onc Treatment Hematology/Oncolog y Treatment, [address] [phone] Verna, Chair 5 Hem Onc [address] [place] [address] Malignant neoplasm of sigmoid colon [...] Sprays into each nostril in the morning. [place] hand to apply. 16 g 3 11/25/2023 [...] Description 09/07/2024 9:30 AM EDT Laboratory Laboratory [facility] [place] 200 [facility] [place] [phone] Verna, Lab [address] [place] [address] 09/07/2024 10:00 AM EDT Office Visit Hematology/Oncology [facility] [place] 200 [facility] [place] [phone] Anahy Rowan CRNP [address] [place] [address] 09/07/2024 10:30 AM EDT Hem/Onc Treatment Hematology/Oncology Treatment, [place] [address] [place] [phone] Verna, Chair 1 Hem Onc [facility] [address] [facility] [place] [address] 09/21/2024 9:30 AM [facility] Pharmacy Pharmacy Hematology Oncology [address] [address] [facility] [place] [facility] [address] 10/05/2024 9:30 AM EST Office Visit Hematology/Oncology [facility] 200 [facility] [place] [phone] Yanet Berg MD 200 [facility] [place] [address] 10/27/2024 7:40 AM EST Office Visit Family Practice [facility] 200 [facility] [place] [address] Buddy Patel III, MD 200 [facility] [place] [address] Health Maintenance Due Date Last Done Comments [...] this encounter Medical Devices Implanted Type Area Glaze Sprayer Device Identifier Shelf Expiration Date Model / Serial / Lot Port Implant W/8f Poly Cath - [id number] Implanted:Qty : 1 on 05/06/2023 by Leonardo Castro DO at OR [facility] Right: Chest CR BARD : PERIPHERAL VASCULAR [id number] 07/16/2024 [id number] / / [id number] documented as of this encounter Visit Diagnoses [...] at 1315, For 1 dose, Restricted per [facility] antiemetic guidelines Given 07/20/2024 12:47 PM EDT [...] mL/hr documented in this encounter Care Teams Formation Testing Operator Relationship Specialty Start Date End Date Buddy Patel III, MD 200 [place] [address] PCP - General Family Medicine 04/29/23 documented as of this encounter
--- OUTSIDE RECORDS SUMMARY | 2024-10-25 00:58 | External Medical Summary | Summary of Care ---
Author Name Unknown Organization [facility] Address [address] [place] [address] Phone [phone] Care Team Providers Care Station Inspector Name Role Phone Amanda BROWN MD, Buddy Britton Primary Care Provider [phone] Reason for Visit * Reason Onset Date Comments Medication Update 08/12/2024 FYI 08/12/2024 Encounter Details Date Type Department Care Team (Late st Contact Info) Description 08/12/2024 Telephone Hematology/Oncology [facility] [place] 200 [facility] [place] [address] Yanet Berg MD [address] [address] Medication Update; Allergies No known active allergiesdocumented as of this encounter (statuses as of 08/15/2024) Medications Medication Sig Dispensed Refills Start Date End Date Status Dicyclomine HCl 10 MG Oral Capsule (Bentyl) Take 1 Capsule by mouth 4 times a day as needed for Pain. For abdominal pain 8 Capsule 11 08/07/2023 Active metroNIDAZOLE 500 MG Oral Tablet (Flagyl) Take 1 Tablet by mouth 2 times a day with morning and evening meals. Active Atenolol 50 MG Oral Tablet (Tenormin) [...] [place] hand to apply. 16 g 3 11/25/2023 [...] as of this encounter (statuses as of 08/15/2024) Active Problems Problem Noted Date Diagnosed Date Encounter for antineoplastic chemotherapy 2023 Metastatic colon cancer to liver 11/25/2023 Protein-calorie malnutrition 08/07/2023 Malignant neoplasm of sigmoid colon 04/22/2023 Encounter for antineoplastic chemotherapy 2022 documented as of this encounter (statuses as of 08/15/2024) Immunizations Name Administration Dates Next Due Pneumococcal [...] Telephone Encounter - Brenda Cantrell RN - 08/15/2024 8:55 AM EDT MTM calling patient, plan to start lonsurf this morning. * Telephone Encounter - Brenda Cantrell RN - 08/12/2024 4:21 PM EDT Miri called office. States that Mendez is getting lonsurf this evening. He would like to start it Ethan morning (plans to take it around 10am with breakfast) but she wants to make sure this would be ok. Advised her that we will review with provider and call her Thursday. She verbalized understanding. * Telephone Encounter - Kellie Booker CPhT - 08/12/2024 9:07 AM EDT MEDICATION THERAPY MANAGEMENT TRIFLURIDINE/TIPIRACIL [place] [phone] Patient Phone Numbers Communication: Spoke to Caller Treatment: Medication: Trifluridine/Tipiracil (Lonsurf) Indication/Staging/Diagnosis Code: met colon cancer / C18.7 Dose Basis: 35mg/m2 (BSA 2m2) Dose: 70mg BID D1-5 and 8-12 every 28 days Administration: with food Start Date: TBD Primary Car Bracer/Oncologist: Dr. Berg Caller: Incoming Request: Patient has questions regarding oral chemotherapy calling to inform patient was approved for pharmacy nain and Lonsurf will be arriving either today, tomorrow or Thursday. She will be calling [facility] to confirm exact delivery date and ask shipmentquestions I was unable to answer. She would like to know when he should begin taking Lonsurf. Explained one of our pharmacist will contact her next week for chemo education and will advise whenhe should start his cycle. She voiced understanding and will wait for a call. Kellie Booker Datapower Consultant III Hematology Oncology Oral Chemotherapy Clinic Medication Therapy Disease Management [facility] 08/12/2024 9:14 AM Time Spent on Encounter: 11 - 15 minutes documented in this encounter Plan of Treatment Upcoming Encounters Date Type Department Care Team (Late st Contact Info) Description 08/15/2024 9:45 AM EDT Pharmacy Pharmacy Hematology Oncology [place] [address] [place] [address] [facility] Hem/Onc [facility] [place] [address] 08/24/2024 8:00 AM EDT Laboratory Laboratory [facility] [address] [place], [place] [phone] Verna, Lab [address] [place], [place] [address] 08/24/2024 9:00 AM EDT [facility] 200 [facility] [place], [place] [phone] Verna, Chair 3 Hem Onc [address] [place], [place] [address] 09/07/2024 9:30 AM EDT Laboratory Laboratory [facility] [address] [place], [place] [phone] Verna, Lab [address] [place], [place] [address] 09/07/2024 10:00 AM EDT Office Visit Hematology/Oncology [facility] [address] [place], [place] [phone] Anahy Rowan, DEJA [address] [place] [address] 09/07/2024 10:30 AM EDT Hem/Onc Treatment Hematology/Oncology [facility] 200 [facility], [place] [phone] Verna, Chair 1 Hem Onc [address] [place], [place] [address] 10/05/2024 9:30 AM EST Office Visit Hematology/Oncology [facility] [address] [place], [place] [phone] Yanet Berg MD [address] [place], [place] [address] 10/27/2024 7:40 AM EST Office Visit [facility] [address] [place] [address] Buddy Patel III, MD [address] [place] [address] [address] Health Maintenance Due Date Last Done Comments COVID-19 Vaccine (#1) 1968 HIV Screening 1978 Hepatitis C Screening 1981 DTap/Tdap Vaccines (1 - Tdap) 1982 Zoster Vaccines (1 of 2) 1982 Cologuard 2008 Fecal Occult Blood Test 2008 Sigmoidoscopy 2008 Influenza Vaccine (FLU shot) (#1) 2024 Depression Screening 08/07/2024 08/07/2023 Diabetes Screening 08/10/2027 08/10/2024, 0 08/02/2024, 07/19/2024, Additional history exists Lipid Panel 12/01/2028 12/01/2023, [...] encounter Medical Devices Implanted Type Area Director Fixed Income Device Identifier Shelf Expiration Date Model / Serial / Lot Port Implant W/8f Poly Cath - [id number] Implanted:Qty : 1 on 05/06/2023 by Leonardo Castro, at OR [facility] Right: Chest CR BARD : PERIPHERAL VASCULAR [id number] 07/16/2024 [id number] / / [id number] documented as of this encounter Visit Diagnoses Diagnosis Malignant neoplasm of sigmoid colon (HCC)- Primary Malignant neoplasm of sigmoid colon documented in this encounter Care Teams Station Inspector Relationship Specialty Start Date End Date Buddy Patel III, MD [address] [place] [address] PCP - General Family Medicine 04/29/23 documented as of this encounter
--- OUTSIDE RECORDS SUMMARY | 2024-10-25 00:58 | External Medical Summary ---
Author Name Unknown Address Unknown Organization [facility] [address] [place] [address] Laboratory Report Ordering Provider Test Date Status TEJAS TORRES 08/24/2024 08:01:28 Final Observation Date Value Abnormality Reference (Units ) Status BUN 08/24/2024 08:01:28 8 6-20 (mg/dL) Final Creatinine 08/24/2024 08:01:28 0.8 0.6-1.2 (mg/dL) Final Glomerular filtration rate/1.73 sq M.predicted [Volume Rate/Area] in Serum, Plasma or Blood by Creatinine-based formula (CKD-EPI) 08/24/2024 08:01:28 >90 >=60 (mL/min) Final eGFR is calculated based on the CKD-EPI 2020 equation. Sodium 08/24/2024 08:01:28 134 Below low normal 135 -146 (mmol/L) Final Potassium 08/24/2024 08:01:28 4.2 3.5-5.1 (m mol/L) Final Cl 08/24/2024 08:01:28 100 98-107 (mm ol/L) Final CO2 08/24/2024 08:01:28 24 22-32 (mmo l/L) Final Anion gap 08/24/2024 08:01:28 10 7-15 (mmol /L) Final Glucose 08/24/2024 08:01:28 95 70-120 (mg /dL) Final Albumin 08/24/2024 08:01:28 3.2 Below low normal 3.8 -5.0 (g/dL) Final AST (Aspartate aminotransferase) 08/24/2024 08:01:28 19 10-50 (U/L) Fin al Alk Phos 08/24/2024 08:01:28 236 Above high normal 35 -130 (U/L) Final Bilirubin, Total 08/24/2024 08:01:28 0.9 <=1 .2 (mg/dL) Final Calcium 08/24/2024 08:01:28 8.9 8.4-10.2 ( mg/dL) Final Protein 08/24/2024 08:01:28 7.6 6.0-8.3 (g /dL) Final ALT (Alanine aminotransferase) 08/24/2024 08:01:28 <5 Below low normal 10-50 (U/L) Final Performing Location [facility] [address] [place] [address]
--- OUTSIDE RECORDS SUMMARY | 2024-10-25 00:58 | External Medical Summary | Summary of Care ---
Author Name Unknown Organization [facility] Address [address] [place] [address] Phone [phone] Care Team Providers Care Lumber Chain Offbearer Name Role Phone Amanda BROWN MD, Buddy Britton Primary Care Provider [phone] Reason for Visit * Reason Comments Medication Management Encounter Details Date Type Department Care Team (Late st Contact Info) Description 08/15/2024 9:45 AM EDT Pharmacy Pharmacy Hematology Oncology [facility] [address], [place] [phone] [facility], [facility] Hem/Onc [address], [place] [id number] Malignant neoplasm of sigmoid colon (HCC)* Allergies [...] Sprays into each nostril in the morning. [place] hand to apply. 16 g 3 11/25/2023 [...] this encounter Progress Notes * Carisa Arceo, [facility] - 08/15/2024 8:58 AM EDT MEDICATION THERAPY MANAGEMENT TRIFLURIDINE/TIPIRACIL TREATMENT EDUCATION NOTE Mendez Costa [phone] Patient Phone Numbers (sister Miri) Preferred Lab: [facility]: P ([facility] copy below into specialty comments) Treatment consent complete: yes Date: 08/03/24 Precertification complete: yes Date: 08/10/24 Communication: Spoke to: Patient and Caregiver Treatment: Medication: Trifluridine/Tipiracil (Lonsurf) Indication/Staging/Diagnosis Code: met colon cancer / C18.7 Dose Basis: 35mg/m2 (BSA 2m2) Dose: 70mg BID D1-5 and 8-12 every 28 days Administration: with food Start Date: 08/15/24 Primary Mortgage Loan Specialist/Oncologist: Dr. Berg Additional Therapy: Bevacizumab Supportive Care Meds: Ondansetron Prophylactic Meds: None Relevant Chronic Medications: Category Medications Pertinent Notes Antihypertensives Atenolol 50mg daily Per PCP Cycle Dates C1 08/15-08/19; 08/22-08/26 C2 09/12-09/16; 09/19-09/23 (anticipated) Treatment History: FOLFOX FOLFIRI + panutumumab Medication education: Confirmed pt has received information regarding goals and duration of therapy: yes Reviewed dosing and administration: yes Reviewed importance of medication compliance (document recommendations if barriers identified): yes Reviewed appropriate storage conditions: yes Reviewed handling precautions: yes Reviewed handling body fluids and waste: yes Reviewed side effects, monitoring, and supportive care measures: yes Decrease in Appetite This medication may decrease your appetite Try to eat smaller, more frequent meals (instead of three large meals a day) Keep snacks nearby so you can eat them when you feel hungry Talk to your doctor to see if liquid nutritional supplements or medications to stimulate your appetite may be appropriate for you Diarrhea/Abdominal Pain This medication can cause loose stools You can purchase OTC loperamide (Imodium A-D) to help manage this side effect (4 mg x 1, followed by 2 mg Q4H or after every loose stool, not to exceed 16 mg/day) Drink plenty of fluids to prevent dehydration, ideally 8-10 glasses per day (unless a healthcare provider has instructed you to limit your fluid intake due to other health conditions) Dietary modifications: eat bland, low fiber foods such as bananas, rice, applesauce, and toast (BRAT diet), avoid dairy, avoid spicy, greasy or fatty foods When to call clinic: If approaching maximum dose of loperamide and still having diarrhea or if you have any s/sx of dehydration; if there is a concern for infectious diarrhea (especially in setting of neutropenia) Nausea/Vomiting This medication may cause nausea or vomiting Moderate/high emetic risk: Zofran 30 minutes prior to chemotherapy and q8h PRN. Compazine for breakthrough N/V Dietary modifications: avoid spicy, greasy, fatty foods If vomiting, increase water intake to avoid dehydration When to call clinic: N/V refractory to antiemetics or if unable to keep up with oral intake Fever This medication can cause your white blood cell count to drop making it more difficult for your body to fight off infections Avoid coming into contact with others who are sick when possible Practicing proper hand hygiene can also reduce the risk of exposure to bacteria and other pathogens. Review frequency of CBCd monitoring (will be drug-specific) When to call clinic: If you are experiencing fever (100.4F / 38C or higher), chills, cold or flu-like symptoms, pain or burning with urination Confirmed pt has received written information about drug therapy: yes Changes to medication list since last visit: no Drug interaction assessment: Treatment plan and current medication list evaluated for drug-drug interactions. No clinically significant drug interaction identified Does patient rely on caregiver for medication management? Yes, sister Miri Assessment and plan: Pt verbalized understanding to information provided. All questions answered to the patient's satisfaction Pt was educated about role of Oral Chemotherapy Clinic and pharmacist in medication management, andplan for follow up. Per discussion with MARIEL Gutierrez, pt wishes to start Lonsurf 08/15 for Thursday through Thursday start Repeat labs within parameters to initiate treatment Advised sister and pt he is good to start treatment today Provided MTM number to call with questions and concerns MTM to follow up 08/24 with repeat labs Follow up: 08/24 with labs Carisa Arceo, PharmD, BCOP Clinical Pharmacist, [facility] Oral Chemotherapy [facility] 08/15/2024, 9:30 AM Monitoring Parameters: Estimated CrCl Serum creatinine: 0.7 mg/dL 08/10/24 1251 Estimated creatinine clearance: 118.8 mL/min Hepatitis panel Latest Reference Range & [...] Pertinent labs: Latest Reference Range & Units 07/19/24 11:19 08/02/24 08:41 08/10/24 12:51 WBC 4.00 - 10.80 K/uL 7.73 2.70 (L) 5.87 RBC 4.50 - 5.25 M/uL 4.22 3.78 3.92 HGB 14.0 - 16.8 g/dL 10.5 (L) 9.4 (L) 9.7 (L) HCT 40.0 - 48.4 % 34.7 (L) 30.8 (L) 31.6 (L) MCV 82.0 - 99.5 fL 82.2 81.5 80.6 MCH 27.0 - 34.0 pg 24.9 24.9 24.7 MCHC 32.0 - 36.0 g/dL 30.3 30.5 30.7 RDW 11.5 - 15.5 % 20.1 18.6 18.0 PLT 140 - 400 K/uL 279 183 208 MPV 6.6 - 11.1 fL 12.5 SEE REPORT SEE REPORT CBC WITH WBC DIFFERENTIAL Rpt ! Rpt ! Rpt ! Absolute Neutrophils 1.80 - 7.70 K/uL 5.56 1.12 (L) 3.66 Latest Reference Range & Units 07/19/24 11:19 08/02/24 08:41 08/10/24 12:51 POTASSIUM 3.5 - 5.1 mmol/L 4.6 3.4 (L) 4.2 Latest Reference Range & Units 07/19/24 11:19 08/02/24 08:41 08/10/24 12:51 Albumin 3.8 - 5.0 g/dL 2.9 (L) 3.1 (L) 3.0 (L) AST 10 - 50 U/L 30 21 29 ALT 10 - 50 U/L 11 12 10 Alkaline Phosphatase 35 - 130 U/L 223 (H) 170 (H) 185 (H) Bilirubin, Total <=1.2 mg/dL 0.5 0.6 0.7 Time Spent on Encounter: 16 - 20 minutes Encounter Group: Oncology Encounter Interventions Item Category: Oral Chemotherapy Trifluridine/Tipricil Problem/Rationale: Indication: Needs additional medication therapy - Untreated condition, - Synergistic therapy Education: Initial education Pharmacist Intervention(s): Discussed patient with nursing, Education provided, and Lab monitoring Magnitude of Intervention: Monitoring with direction (Level 1) documented in this encounter Plan of Treatment Upcoming Encounters Date Type Department Care Team (Late st Contact Info) Description 08/24/2024 8:00 AM EDT Laboratory Laboratory [facility] Verna [employer] [address] [place] [phone] Verna, Lab [facility] [address] [facility] [place] [address] 08/24/2024 9:00 AM EDT Hem/Onc Treatment Hematology/Oncology Treatment, [employer] [address] [place] [phone] Verna, Chair 3 Hem Onc [facility] [address] [place] [address] 08/24/2024 9:30 AM EDT Pharmacy Pharmacy Hematology Oncology [facility] [address] [place] [address] [facility] [place], [facility] Hem/Onc [address] [place] [address] 09/07/2024 9:30 AM EDT Laboratory Laboratory [facility] [employer] [address] [place] [phone] Verna Lab [facility] [address] [facility] [place] [address] 09/07/2024 10:00 AM EDT Office Visit Hematology/Oncology [facility] Verna [employer] [address] [place] [address] [phone] Anahy Rowan CRNP [address] [place], [place] [phone] 09/07/2024 10:30 AM EDT Hem/Onc Treatment Hematology/Oncology Treatment, [employer] [address] [place] [address] Verna, Chair 1 Hem Onc [facility] 200 [facility] [place] [address] 10/05/2024 9:30 AM EST Office Visit Hematology/Oncology [facility] [employer] 200 [facility] [place] [phone] Yanet Berg MD 200 [facility] [place] [address] 10/27/2024 7:40 AM EST Office Visit Family Practice [facility] [employer] [address] [place] [address] Buddy Patel III, MD 200 [facility] [place] [address] Health Maintenance Due Date Last Done Comments [...] this encounter Medical Devices Implanted Type Area Intervention Manager Device Identifier Shelf Expiration Date Model / Serial / Lot Port Implant W/8f Poly Cath - [id number] Implanted:Qty : 1 on 05/06/2023 by Leonardo Castro DO at OR [facility] Right: Chest CR BARD : PERIPHERAL VASCULAR [id number] 07/16/2024 [id number] / / [id number] documented as of this encounter Visit Diagnoses Diagnosis Malignant neoplasm of sigmoid colon (HCC)- Primary Malignant neoplasm of sigmoid colon documented in this encounter Care Teams Lumber Chain Offbearer Relationship Specialty Start Date End Date Buddy Patel III, MD [address] [place] [address] PCP - General Family Medicine 04/29/23 documented as of this encounter
--- OUTSIDE RECORDS SUMMARY | 2024-10-25 00:58 | External Medical Summary | Summary of Care ---
Author Name Unknown Organization [facility] Address [address] [place] [address] Phone [phone] Care Team Providers Care Medical Collections Name Role Phone Amanda BROWN MD, Buddy Britton Primary Care Provider [phone] Reason for Visit * Reason Comments Outpatient Testing Encounter Details Date Type Department Care Team (Late st Contact Info) Description 08/24/2024 8:00 AM EDT Laboratory Laboratory [facility] [address] [place] [address] [facility] 200 [facility] [place], [place] [phone] Metastatic colon cancer to liver (HCC); Malignant neoplasm of sigmoid colon (HCC) Allergies No known active allergiesdocumented as of this encounter (statuses as of 08/24/2024) Medications Medication Sig Dispensed Refills Start Date [...] Sprays into each nostril in the morning. [place] hand to apply. 16 g 3 11/25/2023 [...] as of this encounter (statuses as of 08/24/2024) Active Problems Problem Noted Date Diagnosed Date Encounter for antineoplastic chemotherapy 2023 Metastatic colon cancer to liver 11/25/2023 Protein-calorie malnutrition 08/07/2023 Malignant neoplasm of sigmoid colon 04/22/2023 Encounter for antineoplastic chemotherapy 2022 documented as of this encounter (statuses as of 08/24/2024) Immunizations Name Administration Dates Next Due Pneumococcal [...] Team (Late st Contact Info) Description 08/24/2024 9:00 AM EDT Hem/Onc Treatment Hematology/Oncology Treatment, [place] [address] [facility] [place] [phone] Verna, Chair 3 Hem Onc [place] [address] [place] [address] Arrived 08/24/2024 9:30 AM EDT Pharmacy Pharmacy Hematology Oncology [address] [address] [facility] Hem/Onc [facility] [place] [address] 09/07/2024 9:30 AM EDT Laboratory Laboratory [facility] [place] [address] [place] [phone] Verna, Lab [facility] [address] [facility] [place] [address] 09/07/2024 10:00 AM EDT Office Visit Hematology/Oncology [facility] [place] [address] [place] [phone] Anahy Rowan, DEJA 400 [place] [address] 09/07/2024 10:30 AM EDT Hem/Onc Treatment Hematology/Oncology [facility] [address] [facility] [address] [place] [phone] Verna, Chair 1 Hem Onc [address] [place] [address] 10/05/2024 9:30 AM EST Office Visit Hematology/Oncology [facility] Verna [place] 200 [facility] [place] [phone] Yanet Berg MD 200 [facility] [place] [address] 10/27/2024 7:40 AM EST Office Visit Family Practice [facility] [place] 200 [facility] [place] [address] Buddy Patel III, MD 200 [facility] [place] [address] Pending Results Name Type Priority Associated Diagnoses Date /Time COMPREHENSIVE METABOLIC PANEL Lab STAT Metastatic colon cancer to liver (HCC) Malignant neoplasm of sigmoid colon (HCC) 08/24/2024 8:01 AM EDT Health Maintenance Due Date Last [...] this encounter Medical Devices Implanted Type Area Web Methods Developer Device Identifier Shelf Expiration Date Model / Serial / Lot Port Implant W/8f Poly Cath - [id number] Implanted:Qty : 1 on 05/06/2023 by Leonardo Castro DO at OR [facility] Right: Chest CR BARD : PERIPHERAL VASCULAR [id number] 07/16/2024 [id number] / / [id number] documented as of this encounter Procedures Procedure Name Priority Date/Time Associated Diagnosis Comments DIFFERENTIAL, AUTOMATED STAT 08/24/2024 8:01 AM EDT Metastatic colon cancer to liver (HCC) Malignant neoplasm of sigmoid colon (HCC) CBC STAT 08/24/2024 8:01 AM EDT Metastatic colon cancer to liver (HCC) Malignant neoplasm of sigmoid colon (HCC) CBC STAT 08/24/2024 8:01 AM EDT Metastatic colon cancer to liver (HCC) Malignant neoplasm of sigmoid colon (HCC) URINALYSIS, REFLEX TO MICROSCOPIC STAT 08/24/2024 8:01 AM EDT Metastatic colon cancer to liver (HCC) Malignant neoplasm of sigmoid colon (HCC) documented in this encounter Results * (ABNORMAL) DIFFERENTIAL, AUTOMATED (08/24/2024 8:01 AM EDT) WBC 5.12 4.00 - 10.80 K/uL 08/24/2024 8:09 AM EDT [facility] 56-02 Neutrophils % 71.8 40.0 - 75.0 % 08/24/2024 8:09 AM EDT [facility] 56-02 Lymphocytes % 18.9 18.0 - 42.0 % 08/24/2024 8:09 AM EDT [facility] 56-02 Monocytes % 6.8 1.0 - 11.0 % 08/24/2024 8:09 AM EDT [facility] 56-02 Eosinophils % 2.3 0.0 - 6.0 % 08/24/2024 8:09 AM EDT [facility] 56-02 Basophils % 0.2 0.0 - 2.0 % 08/24/2024 8:09 AM EDT [facility] 56-02 Absolute Neutrophils 3.67 1.80 - 7.70 K/uL 08/24/2024 8:09 AM EDT [facility] 56-02 Absolute Lymphocytes 0.97(L) 1.00 - 4.80 K/ul 08/24/2024 8:09 AM EDT [facility] 56-02 Absolute Monocytes 0.35 0.00 - 1.10 K/uL 08/24/2024 8:09 AM EDT [facility] 56-02 Absolute Eosinophils 0.12 0.00 - 0.70 K/uL 08/24/2024 8:09 AM EDT [facility] 56-02 Absolute Basophils 0.01 0.00 - 0.20 K/uL 08/24/2024 8:09 AM EDT [facility] 56-02 Blood Venous blood specimen / Unknown Venipuncture / Unknown 08/24/2024 8:01 AM EDT 08/24/2024 8:01 AM EDT Yanet Berg MD LAB BLOOD ORDERA BLES [facility] 56-02 [address] [place] [address] * (ABNORMAL) CBC (08/24/2024 8:01 AM EDT) WBC 5.12 4.00 - 10.80 K/uL 08/24/2024 8:09 [address] EDT [address] RBC 3.97 4.50 - 5.25 M/uL 08/24/2024 8:09 AM EDT [place] [address] HGB 9.3(L) 14.0 - 16.8 g/dL 08/24/2024 8:09 AM EDT [address] HCT 31.1(L) 40.0 - 48.4 % 08/24/2024 8:09 AM EDT [address] MCV 78.3 82.0 - 99.5 fL 08/24/2024 8:09 AM EDT [address] MCH 23.4 27.0 - 34.0 pg 08/24/2024 8:09 AM EDT [place] [address] MCHC 29.9 32.0 - 36.0 g/dL 08/24/2024 8:09 AM EDT [address] RDW 17.9 11.5 - 15.5 % 08/24/2024 8:09 AM EDT [facility] 56 PLT 204 140 - 400 K/uL 08/24/2024 8:09 AM EDT [address] MPV 9.2 6.6 - 11.1 fL 08/24/2024 8:09 AM EDT [facility] 56 Blood Venous blood specimen / Unknown Venipuncture / Unknown 08/24/2024 8:01 AM EDT 08/24/2024 8:01 AM EDT Yanet Berg MD LAB BLOOD ORDERA BLES [facility] 56 [address] [place] [address] * URINALYSIS, REFLEX TO MICROSCOPIC (08/24/2024 8:01 AM EDT) Color, Urine Yellow Light Yellow, Yellow, Dark Yellow 08/24/2024 8:05 AM EDT [address] Clarity, Urine Clear Clear 08/24/2024 8:05 AM EDT [address] Glucose, Urine Negative Negative mg/dL 08/24/2024 8:05 AM EDT [address] Bilirubin, Urine Negative Negative 08/24/2024 8:05 AM EDT [address] Ketone, Urine Negative Negative mg/dL 08/24/2024 8:05 AM EDT [address] Specific [place], Urine 1.010 1.003 - 1.030 08/24/2024 8:05 AM EDT [address] Blood, Urine Negative Negative 08/24/2024 8:05 AM EDT [address] pH, Urine 5.5 5.0 - 7.5 Units 08/24/2024 8:05 AM EDT [address] Protein, Urine Negative Negative mg/dL 08/24/2024 8:05 AM EDT [address] Urobilinogen, Urine 0.2 0.2, 1.0 mg/dL 08/24/2024 8:05 AM EDT [address] Nitrite, Urine Negative Negative 08/24/2024 8:05 AM EDT [address] Esterase, Urine Negative Negative 8:05 AM EDT [address] Comment, Urine 08/24/2024 8:05 AM EDT [address] Comment:Screen negative - Mi croscopic not performed. Urine Non-blood Collection / Unknown 08/24/2024 8:01 AM EDT 08/24/2024 8:01 AM EDT Yanet Berg MD LAB URINE ORDERA BLES [facility] [address] [place] [address] documented in this encounter Visit Diagnoses Diagnosis Metastatic colon cancer to liver (HCC) Malignant neoplasm of colon, unspecified site Malignant neoplasm of sigmoid colon (HCC) Malignant neoplasm of sigmoid colon documented in this encounter Care Teams Medical Collections Relationship Specialty Start Date End Date Buddy Patel III, MD [address] [place] [address] PCP - General Family Medicine 04/29/23 documented as of this encounter
--- OUTSIDE RECORDS SUMMARY | 2024-10-25 00:58 | External Medical Summary ---
Author Name Unknown Address Unknown Organization K[facility] [place] [address] Laboratory Report Ordering Provider Test Date Status TEJAS TORRES 08/24/2024 08:01:28 Final Observation Date Value Abnormality Reference (Units ) Status WBC, Total 08/24/2024 08:01:28 5.12 4.00-10.8 0 (K/uL) Final RBC 08/24/2024 08:01:28 3.97 4.50-5.25 (M/uL) Final Hemoglobin 08/24/2024 08:01:28 9.3 Below low normal 14 .0-16.8 (g/dL) Final HCT 08/24/2024 08:01:28 31.1 Below low normal 40. 0-48.4 (%) Final MCV 08/24/2024 08:01:28 78.3 82.0-99.5 (fL) Final MCH 08/24/2024 08:01:28 23.4 27.0-34.0 (pg) Final MCHC 08/24/2024 08:01:28 29.9 32.0-36.0 (g/dL) Final RDW 08/24/2024 08:01:28 17.9 11.5-15.5 (%) Final Platelets 08/24/2024 08:01:28 204 140-400 (K /uL) Final MPV 08/24/2024 08:01:28 9.2 6.6-11.1 ( fL) Final Performing Location [facility] [place] [address]
--- OUTSIDE RECORDS SUMMARY | 2024-10-25 00:58 | External Medical Summary | Summary of Care ---
Author Name Unknown Organization [facility] Address [address] [place] [address] Phone [phone] Care Team Providers Care Manager Of Learning Name Role Phone Amanda BROWN MD, Buddy Britton Primary Care Provider [phone] Reason for Visit * Reason Comments Chemotherapy C1 D 15 Zirabev * Episode Based Medications (Routine) - Authorized Specialty Diagnoses / Procedures Referred By Contkim t Referred To Contact Diagnoses Malignant neoplasm of sigmoid colon (HCC) Encounter for antineoplastic chemotherapy Procedures CO INJ., ZIRABEV, 10 MG Yanet Berg MD [address] [place] [address] Anc Hem/Onc [address] [address] Referral ID Status Reason Start Date Expiration Date V isits Requested Visits Authorized [id number] Authorized 08/03/2024 11/15/2099 99 99 Encounter Details Date Type Department Care Team (Latest Contact Info) Description 08/24/2024 9:00 AM EDT Hem/Onc Treatment Hematology/Oncolog y Treatment, [address] [phone] Verna, Chair [address] [place] [address] Malignant neoplasm of sigmoid colon (HCC)*; [...] Sprays into each nostril in the morning. [place] hand to apply. 16 g 3 11/25/2023 [...] AM EDT Laboratory Laboratory [facility] [address] [place] [phone] Verna, Lab [address] [place] [address] 09/07/2024 10:00 AM EDT Office Visit Hematology/Oncology [facility] [address] [place] [phone] Anahy Rowan CRNP 400 [place] [address] 09/07/2024 10:30 AM EDT Hem/Onc Treatment Hematology/Oncology Treatment, [place] 200 [facility] [place] [phone] Verna, Chair 1 Hem Onc [address] [place] [address] 09/21/2024 9:30 AM EST Pharmacy Pharmacy Hematology Oncology [facility] [place] [address] [place] [address] [facility], [facility] Clinic Hem/Onc [address] [place] [address] 10/05/2024 9:30 AM EST Office Visit Hematology/Oncology [facility] 200 [facility] [place] [phone] Yanet Berg MD 200 [facility] [place] [address] 10/27/2024 7:40 AM EST Office Visit Family Practice [facility] 200 [facility] [place] [address] Buddy Patel III, MD 200 [facility] [place] [address] Health Maintenance Due Date Last Done Comments [...] this encounter Medical Devices Implanted Type Area Dining Host Device Identifier Shelf Expiration Date Model / Serial / Lot Port Implant W/8f Poly Cath - [id number] Implanted:Qty : 1 on 05/06/2023 by Leonardo Castro, DO at OR [facility] Right: Chest CR BARD : PERIPHERAL VASCULAR [id number] 07/16/2024 [id number] / / [id number] documented as of this encounter Visit Diagnoses [...] ONCE PRN Other, Hypersensitivity Reaction, Starting on Thu08/24/24 at 0936, Until Marcela 08/25/24 at 0935, For 24 hours EPINEPHrine 1 MG/ML inj 0.3 mg 0.3 mg, Intramuscular, ONCE PRN Other, Hypersensitivity Reaction or Anaphylaxis, Starting on Thu08/24/24 at 0936, Until Marcela 08/25/24 at 0935, For 24 hours hEParin 100 UNIT/ML Lock Flush inj 500 Units 500 Units (5 mL), IV Lock, PRN Other, IV Flush, Starting on Thu08/24/24 at 0936, Until Marcela 08/25/24 at 0935, For 24 hours, Do not flush if lock, PICC, or central line not in place; IV infusing or unable to flush. Given 08/24/2024 10:48 AM EDT 500 Units Hydrocortisone Sod Suc (PF) (Solu-Cortef) inj 100 mg 100 mg, IV Push, ONCE PRN Other, Hypersensitivity Reaction, Starting on Thu08/24/24 at 0936, Until Marcela 08/25/24 at 0935, For 24 hours NSS infusion Intravenous, at 50 mL/hr, PRN, Starting on Thu08/24/24 at 1045, Until Discontinued, Maintenance line Start Infusion 08/24/2024 10:11 AM EDT 50 mL/hr oxygen GAS Inhalation, OXYGEN, First dose on Thu08/24/24 at 1015, Until Discontinued, Device/Managed by: Low Flow Device, [...] Flush, Starting on Thu08/24/24 at 0936, Until Marcela 08/25/24 at 0935, For 24 hours, Do not flush if lock, PICC, or central line not in place; IV infusing or unable to flush. Given 08/24/2024 10:47 AM EDT 10 mL Inactive Administered Medications - [...] 10:14 AM EDT 400 mg 210 mL/hr documented in this encounter Care Teams Manager Of Learning Relationship Specialty Start Date End Date Buddy Patel III, MD [address] [place] [address] PCP - General Family Medicine 04/29/23 documented as of this encounter
--- OUTSIDE RECORDS SUMMARY | 2024-10-25 00:58 | External Medical Summary ---
Author Name Unknown Address Unknown Organization [facility] [place] [address] Laboratory Report Ordering Provider Test Date Status TEJAS TORRES 08/24/2024 08:01:28 Final Observation Date Value Abnormality Reference (Units ) Status SYNC LEUKOCYTES IN BLOOD BY AUTOMATED COUNT 08/24/2024 08:01:28 5.12 4.00-10.80 (K/uL) Final Segs 08/24/2024 08:01:28 71.8 40.0-75.0 (%) Final Lymphs % 08/24/2024 08:01:28 18.9 18.0-42.0 (%) Final Monos 08/24/2024 08:01:28 6.8 1.0-11.0 (%) Final Eosinophils 08/24/2024 08:01:28 2.3 0.0-6.0 (%) Final Basos 08/24/2024 08:01:28 0.2 0.0-2.0 (%) Final Absolute Segs 08/24/2024 08:01:28 3.67 1.80-7.70 (K/uL) Final Lymphs, absolute 08/24/2024 08:01:28 0.97 Below low normal 1.00-4.80 (K/ul) Final Monos, Abs 08/24/2024 08:01:28 0.35 0.00-1.10 (K/uL) Final Eos, Abs 08/24/2024 08:01:28 0.12 0.00-0.70 (K/uL) Final Basos, Abs 08/24/2024 08:01:28 0.01 0.00-0.20 (K/uL) Final Performing Location [facility] [place] [address]
--- OUTSIDE RECORDS SUMMARY | 2024-10-25 00:58 | External Medical Summary | Summary of Care ---
Author Name Unknown Organization [facility] Address [address] [place] [address] Phone [phone] Care Team Providers Care Works Manager Name Role Phone Amanda BROWN MD, Buddy Britton Primary Care Provider [phone] Reason for Visit * Reason Comments Medication Management Encounter Details Date Type Department Care Team (Late st Contact Info) Description 08/24/2024 9:30 AM EDT Pharmacy Pharmacy Hematology Oncology [facility] [address], [place] [id number] [facility] Hem/Onc [address] [place], [place] [id number] Malignant neoplasm of sigmoid colon (HCC)* Allergies [...] Sprays into each nostril in the morning. [place] hand to apply. 16 g 3 11/25/2023 [...] this encounter Progress Notes * Carisa Arceo, [facility] - 08/24/2024 9:12 AM EDT MEDICATION THERAPY MANAGEMENT TRIFLURIDINE/TIPIRACIL TREATMENT PROGRESS NOTE Mendez Costa [phone] Patient Phone Numbers (sister Miri) Preferred Lab: [facility] Communication: Seen in clinic Treatment: Medication: Trifluridine/Tipiracil (Lonsurf) Indication/Staging/Diagnosis Code: met colon cancer / C18.7 Dose Basis: 35mg/m2 (BSA 2m2) Dose: 70mg BID D1-5 and 8-12 every 28 days Administration: with food Start Date: 08/15/24 Primary Terrazzo Finisher/Oncologist: Dr. Berg Additional Therapy: Bevacizumab Supportive Care Meds: Ondansetron Prophylactic Meds: None Relevant Chronic Medications: Category Medications Pertinent Notes Antihypertensives Atenolol 50mg daily Per PCP Cycle Dates C1 08/15-08/19; 08/22-08/26 C2 09/12-09/16; 09/19-09/23 (anticipated) Treatment History: FOLFOX FOLFIRI + panutumumab Treatment Dose Adjustment/Hold History: none Interval History: Confirmed cycle dates as above Reports taking ondansetron prior to the first few morning doses but has since omitted use as he is not nauseous on treatment States abdominal pain is improving while on treatment No other concerns, tolerating therapy well Changes to medication list since last visit? No Drug interaction assessment: Treatment plan and current medication list evaluated for drug-drug interactions. No clinically significant drug interaction identified Assessment and Plan: Na+ slightly low Encouraged pt to increase dietary Na+ Will monitor closely All other labs stable Continue to HOLD ondansetron as antiemetic not needed Continue current Lonsurf cycle Repeat pre-cycle labs with OV 09/07 Assessment of compliance: compliant Assessment of adverse effects attributed to drug therapy: Abdominal Pain - present, improving Decrease in Appetite - absent Diarrhea - absent Nausea/Vomiting - absent Fever - absent Dose adjustment needed based on lab or adverse drug reaction? No Follow up: 2 weeks OV/labs; 4 weeks MTM with labs Carisa Arceo, PharmD, BCOP Clinical Pharmacist, [facility] Oral Chemotherapy [facility] 08/24/2024, 9:59 AM Monitoring Parameters: Estimated CrCl Serum creatinine: 0.8 mg/dL 08/24/24 0801 Estimated creatinine clearance: 104 mL/min Hepatitis panel Latest Reference Range & [...] Pertinent labs: Latest Reference Range & Units 08/02/24 08:41 08/10/24 12:51 08/24/24 08:01 WBC 4.00 - 10.80 K/uL 2.70 (L) 5.87 5.12 RBC 4.50 - 5.25 M/uL 3.78 3.92 3.97 HGB 14.0 - 16.8 g/dL 9.4 (L) 9.7 (L) 9.3 (L) HCT 40.0 - 48.4 % 30.8 (L) 31.6 (L) 31.1 (L) MCV 82.0 - 99.5 fL 81.5 80.6 78.3 MCH 27.0 - 34.0 pg 24.9 24.7 23.4 MCHC 32.0 - 36.0 g/dL 30.5 30.7 29.9 RDW 11.5 - 15.5 % 18.6 18.0 17.9 PLT 140 - 400 K/uL 183 208 204 MPV 6.6 - 11.1 fL SEE REPORT SEE REPORT 9.2 CBC WITH WBC DIFFERENTIAL Rpt ! Rpt ! Rpt ! Absolute Neutrophils 1.80 - 7.70 K/uL 1.12 (L) 3.66 3.67 Latest Reference Range & Units 08/02/24 08:41 08/10/24 12:51 08/24/24 08:01 SODIUM 135 - 146 mmol/L 137 137 134 (L) Latest Reference Range & Units 08/02/24 08:41 08/10/24 12:51 08/24/24 08:01 Albumin 3.8 - 5.0 g/dL 3.1 (L) 3.0 (L) 3.2 (L) AST 10 - 50 U/L 21 29 19 ALT 10 - 50 U/L 12 10 <5 (L) Alkaline Phosphatase 35 - 130 U/L 170 (H) 185 (H) 236 (H) Bilirubin, Total <=1.2 mg/dL 0.6 0.7 0.9 Time Spent on Encounter: 6 - 10 minutes Encounter Group: Oncology Encounter Interventions Item Category: Oral Chemotherapy Trifluridine/Tipricil Problem/Rationale: Safety: Needs additional monitoring - Medication Requires monitoring Pharmacist Intervention(s): Lab monitoring, Non-pharmacological intervention provided, and Toxicitymonitoring Magnitude of Intervention: Monitoring with direction (Level 1) documented in this encounter Plan of Treatment Upcoming Encounters Date Type Department Care Team (Late st Contact Info) Description 09/07/2024 9:30 AM EDT Laboratory Laboratory [facility] [place] [address] [place] [phone] Verna, Lab [facility] [address] [facility] [place] [address] 09/07/2024 10:00 AM EDT Office Visit Hematology/Oncology [facility] [address] [place] [phone] Anahy Rowan CRNP [address] [place] [address] 09/07/2024 10:30 AM EDT Hem/Onc Treatment Hematology/Oncology Treatment, [place] [address] [place] [phone] Verna, Chair [address] Hem Onc [address] [place] [address] 09/21/2024 9:30 AM EST Pharmacy Pharmacy Hematology Oncology [facility] [address] [place] [address] [facility] Hem/Onc [address] [place] [address] 10/05/2024 9:30 AM EST Office Visit Hematology/Oncology [facility] [address] [place] [phone] Yanet Berg MD [address] [place] [address] 10/27/2024 7:40 AM EST Office Visit Family Practice [facility] [address] [place] [address] Buddy Patel III, MD [address] [facility] [place] [address] Health Maintenance Due Date Last Done Comments [...] encounter Medical Devices Implanted Type Area Systems Developer Device Identifier Shelf Expiration Date Model / Serial / Lot Port Implant W/8f Poly Cath - [id number] Implanted:Qty : 1 on 05/06/2023 by Leonardo Castro, at OR [facility] Right: Chest CR BARD : PERIPHERAL VASCULAR [id number] 07/16/2024 [id number] / / [id number] documented as of this encounter Visit Diagnoses Diagnosis Malignant neoplasm of sigmoid colon (HCC)- Primary Malignant neoplasm of sigmoid colon documented in this encounter Care Teams Works Manager Relationship Specialty Start Date End Date Buddy Patel III, MD [address] [facility] [place] [address] PCP - General Family Medicine 04/29/23 documented as of this encounter
--- OUTSIDE RECORDS SUMMARY | 2024-10-25 00:58 | External Medical Summary | Summary of Care ---
Author Name Unknown Organization [facility] Address [address] [place] [address] Phone [phone] Care Team Providers Care Elevator Dispatcher Name Role Phone Amanda BROWN MD, Buddy Britton Primary Care Provider [phone] Reason for Visit * Reason Onset Date Comments Advice 08/12/2024 waqar Encounter Details Date Type Department Care Team (Late st Contact Info) Description 08/12/2024 Telephone Hematology/Oncology [facility] [place] [address] [place] [address] Services, Scheduling [address] [place] [address] Advice (waqar) Allergies No known active allergiesdocumented as of [...] Sprays into each nostril in the morning. [place] hand to apply. 16 g 3 11/25/2023 [...] encounter Miscellaneous Notes * Telephone Encounter - Martha Tate OSA - 08/12/2024 4:19 PM EDT Patient's sister Miri called in to speak with Brenda about pt's chemo medication- call was warm transferred to Brenda Cantrell. documented in this encounter Plan of Treatment Upcoming Encounters Date Type Department Care Team (Late st Contact Info) Description 08/15/2024 9:45 AM EDT Pharmacy Pharmacy Hematology Oncology [facility] [address] [place] [address] [facility], [facility] Hem/Onc [address] [place] [address] 08/24/2024 8:00 AM EDT Laboratory Laboratory [facility] [address] [place], [place] [phone] Verna, Lab [address] [place], [place] [address] 08/24/2024 9:00 AM EDT [facility] [address] [facility], [place] [phone] Verna, Chair 3 Hem Onc [place] [address] [place], [place] [address] 09/07/2024 9:30 AM EDT Laboratory Laboratory [facility] [address] [place], [place] [phone] Verna, Lab [address] [address] [facility] [place], [place] [address] 09/07/2024 10:00 AM EDT Office Visit Hematology/Oncology [facility] [address] [place], [place] [phone] Anahy Rowan, DEJA [address] [place] [address] 09/07/2024 10:30 AM EDT Hem[facility] [address] [facility], [place] [phone] Verna, Chair 1 Hem Onc [place] [address] [place], [place] [address] 10/05/2024 9:30 AM EST Office Visit Hematology/Oncology [facility] [address] [place], [place] [phone] Yanet Berg MD [address] [place], [place] [address] 10/27/2024 7:40 AM EST Office Visit [facility] [address] [place] [address] Buddy Patel III, MD [address] [place] [address] Health Maintenance Due Date Last Done Comments [...] this encounter Medical Devices Implanted Type Area Fabric Finisher Device Identifier Shelf Expiration Date Model / Serial / Lot Port Implant W/8f Poly Cath - [id number] Implanted:Qty : 1 on 05/06/2023 by Leonardo Castro DO at OR [facility] Right: Chest CR BARD : PERIPHERAL VASCULAR [id number] 07/16/2024 [id number] / / [id number] documented as of this encounter Care Teams Elevator Dispatcher Relationship Specialty Start Date End Date Buddy Patel III, MD [address] [place] [address] PCP - General Family Medicine 04/29/23 documented as of this encounter
--- OUTSIDE RECORDS SUMMARY | 2024-10-25 00:58 | External Medical Summary ---
Author Name Unknown Address Unknown Organization [facility] [place] [address] Laboratory Report Ordering Provider Test Date Status TEJAS TORRES 08/24/2024 08:01:28 Final Observation Date Value Abnormality Reference (Units ) Status Color of Urine by Auto 08/24/2024 08:01:28 Yellow Light Yellow, Yellow, Dark Yellow Final Clarity, Urine 08/24/2024 08:01:28 Clear Clear Final Glucose [Mass/volume] in Urine by Automated test strip 08/24/2024 08:01:28 Negative Negative (mg/dL) Final Bilirubin.total [Presence] in Urine by Automated test strip 08/24/2024 08:01:28 Negative Negative Final Ketones [Mass/volume] in Urine by Automated test strip 08/24/2024 08:01:28 Negative Negative (mg/dL) Final Specific gravity, Urine 08/24/2024 08:01:28 1.010 1.003-1.030 Final Hemoglobin [Presence] in Urine by Automated test strip 08/24/2024 08:01:28 Negative Negative Final pH, Urine 08/24/2024 08:01:28 5.5 5.0-7.5 (Units) Final Protein [Mass/volume] in Urine by Automated test strip 08/24/2024 08:01:28 Negative Negative (mg/dL) Final Urobilinogen [Mass/volume] in Urine by Automated test strip 08/24/2024 08:01:28 0.2 0.2, 1.0 (mg/dL) Final Nitrite [Presence] in Urine by Automated test strip 08/24/2024 08:01:28 Negative Negative Final Leukocyte esterase [Presence] in Urine by Automated test strip 08/24/2024 08:01:28 Negative Negative Final Annotation Comment 08/24/2024 08:01:28 Final Screen negative - Microscopi c not performed. Performing Location [facility] [place] [address]
--- OUTSIDE RECORDS SUMMARY | 2024-10-25 00:59 | External Medical Summary ---
Author Name Unknown Address Unknown Organization [facility] [place] [address] Laboratory Report Ordering Provider Test Date Status TEJAS TORRES 08/10/2024 12:51:40 Final Observation Date Value Abnormality Reference (Units ) Status SYNC LEUKOCYTES IN BLOOD BY AUTOMATED COUNT 08/10/2024 12:51:40 5.87 4.00-10.80 (K/uL) Final Segs 08/10/2024 12:51:40 63.7 40.0-75.0 (%) Final Lymphs % 08/10/2024 12:51:40 20.4 18.0-42.0 (%) Final Monos 08/10/2024 12:51:40 11.0 1.0-11.0 (%) Final Eosinophils 08/10/2024 12:51:40 4.4 0.0-6.0 (%) Final Basos 08/10/2024 12:51:40 0.5 0.0-2.0 (%) Final Absolute Segs 08/10/2024 12:51:40 3.66 1.80-7.70 (K/uL) Final Lymphs, absolute 08/10/2024 12:51:40 1.17 1.00-4.80 (K/ul) Final Monos, Abs 08/10/2024 12:51:40 0.63 0.00-1.10 (K/uL) Final Eos, Abs 08/10/2024 12:51:40 0.25 0.00-0.70 (K/uL) Final Basos, Abs 08/10/2024 12:51:40 0.03 0.00-0.20 (K/uL) Final Performing Location [facility] [place] [address]
--- OUTSIDE RECORDS SUMMARY | 2024-10-25 00:59 | External Medical Summary | Summary of Care ---
Author Name Unknown Organization [facility] Address [address] [place] [address] Phone [phone] Care Team Providers Care Family Consultant Name Role Phone Amanda BROWN MD, Buddy Britton Primary Care Provider [phone] Encounter Details Date Type Department Care Team (Late st Contact Info) Description 08/10/2024 Documentation [facility] [place] [address] [place] [address] Services, [facility] [address] [place], [place] [phone] Allergies No known active allergiesdocumented as of this encounter (statuses as of 08/10/2024) Medications Medication Sig Dispensed Refills Start Date [...] Sprays into each nostril in the morning. [place] hand to apply. 16 g 3 11/25/2023 [...] as of this encounter (statuses as of 08/10/2024) Active Problems Problem Noted Date Diagnosed Date Encounter for antineoplastic chemotherapy 2023 Metastatic colon cancer to liver 11/25/2023 Protein-calorie malnutrition 08/07/2023 Malignant neoplasm of sigmoid colon 04/22/2023 Encounter for antineoplastic chemotherapy 2022 documented as of this encounter (statuses as of 08/10/2024) Immunizations Name Administration Dates Next Due Pneumococcal [...] as of this encounter Progress Notes * Lillie Chow RN - 08/10/2024 3:03 PM EDT The following documentation summarizes the services provided by [facility] asthe prescribed therapy has been completed. The client was referred to us for home therapy. The ordered therapy was Fluorouracil The home therapy began on: 05/18/24 Per physician order: -the prescribed therapy was completed on: 07/22/24 -the (VAD) will remain in place and will be maintained by the clinical staff at (name facility or clinic):[facility] The client and/or caregiver were compliant with therapy administration. The therapy goals were met The following instructions were provided during our final conversation with the client and/or caregiver: -care of the device if it is to remain in place, -appropriate disposal of unused waste, supplies and/or medication, -importance of keeping all follow up appointments Collaboration of Care: -[facility] clinical staff were notified of therapy completion - -A discharge summary note was sent to: Dr. Naz SEGOVIA via EPIC/fax Further close out responsibilities as applicable: -Required paperwork was returned. . -Nursing care plan reviewed and closed out documented in this encounter Plan of Treatment Upcoming Encounters Date Type Department Care Team (Late st Contact Info) Description 08/16/2024 1:45 PM EDT Pharmacy Pharmacy Hematology Oncology [facility] [address] [place] [address] [facility], [facility] Hem/Onc [facility] [place] [address] 08/24/2024 8:00 AM EDT Laboratory Laboratory [facility] [place] [address] [place] [phone] Verna, Lab [facility] 200 [facility] [place] [address] 08/24/2024 9:00 AM EDT Hem/Onc Treatment Hematology/Oncology Treatment, [place] [address] [place] [phone] Verna, Chair 3 Hem Onc [facility] [address] [facility] [place] [address] 09/07/2024 9:30 AM EDT Laboratory Laboratory [facility] [place] [address] [place] [address] Verna Lab [facility] [address] [facility] [place] [address] 09/07/2024 10:00 AM EDT Office Visit Hematology/Oncology [facility] [place] [address] [place] [phone] Anahy Rowan CRNP [address] [place] [address] 09/07/2024 10:30 AM EDT Hem/Onc Treatment Hematology/Oncology Treatment, [place] [address] [facility] [address] [place] [phone] Park, Chair 1 Hem Onc [address] [place] [address] 10/05/2024 9:30 AM EST Office Visit Hematology/Oncology [facility] [place] [address] [facility] [place] [phone] Yanet Berg MD 200 [facility] [place] [address] 10/27/2024 7:40 AM EST Office Visit Family Practice [facility] [address] [facility] [place] [address] Buddy Patel III, MD [address] [facility] [place] [address] Health Maintenance Due Date Last Done Comments [...] this encounter Medical Devices Implanted Type Area Medical Science Liaison Device Identifier Shelf Expiration Date Model / Serial / Lot Port Implant W/8f Poly Cath - [id number] Implanted:Qty : 1 on 05/06/2023 by Leonardo Castro DO at OR [facility] Right: Chest CR BARD : PERIPHERAL VASCULAR [id number] 07/16/2024 [id number] / / [id number] documented as of this encounter Care Teams Family Consultant Relationship Specialty Start Date End Date [place] Buddy BROWN MD 200 [facility] [place] [address] PCP - General Family Medicine 04/29/23 documented as of this encounter
--- OUTSIDE RECORDS SUMMARY | 2024-10-25 00:59 | External Medical Summary ---
Author Name Unknown Address Unknown Organization [facility]09[facility] [place] [address] Laboratory Report Ordering Provider Test Date Status TEJAS TORRES 08/10/2024 12:51:40 Final Observation Date Value Abnormality Reference (Units ) Status WBC, Total 08/10/2024 12:51:40 5.87 4.00-10.8 0 (K/uL) Final Results rechecked.
null RBC 08/10/2024 12:51:40 3.92 4.50-5.25 (M/uL) Final Hemoglobin 08/10/2024 12:51:40 9.7 Below low normal 14 .0-16.8 (g/dL) Final HCT 08/10/2024 12:51:40 31.6 Below low normal 40. 0-48.4 (%) Final MCV 08/10/2024 12:51:40 80.6 82.0-99.5 (fL) Final MCH 08/10/2024 12:51:40 24.7 27.0-34.0 (pg) Final MCHC 08/10/2024 12:51:40 30.7 32.0-36.0 (g/dL) Final RDW 08/10/2024 12:51:40 18.0 11.5-15.5 (%) Final Platelets 08/10/2024 12:51:40 208 140-400 (K /uL) Final Results rechecked.
null MPV 08/10/2024 12:51:40 Final No result - abnormal platele t distribution. Performing Location [facility] [place] [address]
--- OUTSIDE RECORDS SUMMARY | 2024-10-25 00:59 | External Medical Summary ---
Author Name Unknown Address Unknown Organization [facility]09:[facility] [address] [place] [address] Laboratory Report Ordering Provider Test Date Status TEJAS TORRES 08/10/2024 12:51:40 Final Observation Date Value Abnormality Reference (Units ) Status BUN 08/10/2024 12:51:40 8 6-20 (mg/dL) Final Creatinine 08/10/2024 12:51:40 0.7 0.6-1.2 (mg/dL) Final Glomerular filtration rate/1.73 sq M.predicted [Volume Rate/Area] in Serum, Plasma or Blood by Creatinine-based formula (CKD-EPI) 08/10/2024 12:51:40 >90 >=60 (mL/min) Final eGFR is calculated based on the CKD-EPI 2020 equation. Sodium 08/10/2024 12:51:40 137 135-146 (m mol/L) Final Potassium 08/10/2024 12:51:40 4.2 3.5-5.1 (m mol/L) Final Cl 08/10/2024 12:51:40 104 98-107 (mm ol/L) Final CO2 08/10/2024 12:51:40 24 22-32 (mmo l/L) Final Anion gap 08/10/2024 12:51:40 9 7-15 (mmol /L) Final Glucose 08/10/2024 12:51:40 92 70-120 (mg /dL) Final Albumin 08/10/2024 12:51:40 3.0 Below low normal 3.8 -5.0 (g/dL) Final AST (Aspartate aminotransferase) 08/10/2024 12:51:40 29 10-50 (U/L) Fin al Alk Phos 08/10/2024 12:51:40 185 Above high normal 35 -130 (U/L) Final Bilirubin, Total 08/10/2024 12:51:40 0.7 <=1 .2 (mg/dL) Final Calcium 08/10/2024 12:51:40 9.0 8.4-10.2 ( mg/dL) Final Protein 08/10/2024 12:51:40 7.0 6.0-8.3 (g /dL) Final ALT (Alanine aminotransferase) 08/10/2024 12:51:40 10 10-50 (U/L) Jake chavez Performing Location [facility] [address] [place] [address]
--- OUTSIDE RECORDS SUMMARY | 2024-10-25 00:59 | External Medical Summary | Summary of Care ---
Author Name Unknown Organization [facility] Address [address] [place] [address] Phone [phone] Care Team Providers Care Flour Blender Helper Name Role Phone Amanda BROWN MD, Buddy Britton Primary Care Provider [phone] Reason for Visit * Reason Comments Chemotherapy C1/D1 - Zirabev * Episode Based Medications (Routine) - Authorized Specialty Diagnoses / Procedures Referred By Contkim t Referred To Contact Diagnoses Malignant neoplasm of sigmoid colon (HCC) Encounter for antineoplastic chemotherapy Procedures MN INJ., ZIRABEV, 10 MG Yanet Berg MD [address] [place] [address] Anc Hem/Onc [address] [address] Referral ID Status Reason Start Date Expiration Date V isits Requested Visits Authorized [id number] Authorized 08/03/2024 11/15/2099 99 99 Encounter Details Date Type Department Care Team (Latest Contact Info) Description 08/10/2024 2:00 PM EDT Hem/Onc Treatment Hematology/Oncolog y Treatment, [address] [address] Verna Chair 8 Hem Onc [address] [address] Encounter for antineoplastic chemotherapy*; Metastatic [...] Sprays into each nostril in the morning. [place] hand to apply. 16 g 3 11/25/2023 [...] 1:45 PM EDT Pharmacy Pharmacy Hematology Oncology [facility] [address] [place] [address] [facility], [facility] Clinic Hem/Onc [address] [place] [address] 08/24/2024 8:00 AM EDT Laboratory Laboratory [facility] [address] [place] [phone] Alesha Gillespie [facility] [address] [place] [address] 08/24/2024 9:00 AM EDT [facility] 200 [facility] [place], [place] [phone] Verna, Chair 3 Hem Onc Scenery 200 [facility] [place], [place] [address] 09/07/2024 9:30 AM EDT Laboratory Laboratory [facility] [place] [address] [place], [place] [phone] Verna, Lab [facility] 200 [facility] [place], [place] [address] 09/07/2024 10:00 AM EDT Office Visit Hematology/Oncology [facility] [address] [place], [place] [phone] Anahy Rowan CRNP [address] [place] [address] 09/07/2024 10:30 AM EDT Hem[facility] 200 [facility], [place] [phone] Verna, Chair 1 Hem Onc [facility] 200 [facility] [place], [place] [address] 10/05/2024 9:30 AM EST Office Visit Hematology/Oncology [facility] [address] [place], [place] [phone] Yanet Berg MD [address] [place] [address] 10/27/2024 7:40 AM EST Office Visit Family Practice [facility] [address] [place], [place] [address] Buddy Patel III, MD [address] [place], [place] [address] Health Maintenance Due Date Last Done Comments [...] this encounter Medical Devices Implanted Type Area Transportation Agent Device Identifier Shelf Expiration Date Model / Serial / Lot Port Implant W/8f Poly Cath - [id number] Implanted:Qty : 1 on 05/06/2023 by Leonardo Castro, at OR [facility] Right: Chest CR BARD : PERIPHERAL VASCULAR [id number] 07/16/2024 [id number] / / [id number] documented as of this encounter Procedures Procedure Name Priority Date/Time Associated Diagnosis Comments URINALYSIS, REFLEX TO MICROSCOPIC STAT 08/10/2024 1:46 PM EDT Metastatic colon cancer to liver (HCC) Malignant neoplasm of sigmoid colon (HCC) documented in this encounter Results * URINALYSIS, REFLEX TO MICROSCOPIC (08/10/2024 1:46 PM EDT) Color, Urine Yellow 08/10/2024 2:[address]T [address] Clarity, Urine Clear 08/10/2024 2:27 [address]T [address] Glucose, Urine Negative mg/dL 08/10/2024 2:27 PM EDT [address] Bilirubin, Urine Negative 08/10/2024 2:[address] Ketone, Urine Negative mg/dL 08/10/2024 2:[address] Specific Bandera, Urine <=1.005 1.003 - 1.030 08/10/2024 2:[address]T [address] Blood, Urine Trace-intact 08/10/2024 2:[address] pH, Urine 5.5 5.0 - 7.5 Units 08/10/2024 2:27 PM EDT [address] Protein, Urine Negative mg/dL 08/10/2024 2:27 PM EDT [address] Urobilinogen, Urine 0.2 mg/dL 08/10/2024 2:27 PM EDT [address] Nitrite, Urine Negative Negative 08/10/2024 2:27 PM EDT [address] Esterase, Urine Negative Negative 08/10/2024 2:27 PM EDT [address] RBC, Urine 0-2 0 - 2 /HPF 08/10/2024 2:27 PM EDT [address] WBC, Urine 0-2 0 - 2 /HPF 08/10/2024 2:27 PM EDT [address] Bacteria, Urine 0-25 0 - 25 /HPF 08/10/2024 2:27 PM EDT [address] Urine Urine specimen obtained by clean catch procedure / Unknown Non-blood Collection / Unknown 08/10/2024 1:46 PM EDT 08/10/2024 2:03 PM EDT Yanet Berg MD LAB URINE ORDERA [facility] [address] [place] [address] documented in this encounter Visit Diagnoses Diagnosis Encounter for antineoplastic chemotherapy- Primary Metastatic colon cancer to liver (HCC) Malignant neoplasm of colon, unspecified site Malignant neoplasm of sigmoid colon (HCC) Malignant neoplasm of sigmoid colon documented in this encounter Administered Medications Active Administered Medications - up to 3 most recent administrations Medication Order MAR Action Action Date Dose Rate Site diphenhydrAMINE (Benadryl) inj 50 mg 50 mg, IV Push, ONCE PRN Other, Hypersensitivity Reaction, Starting on Thu08/10/24 at 1431, Until Marcela 08/11/24 at 1430, For 24 hours EPINEPHrine 1 MG/ML inj 0.3 mg 0.3 mg, Intramuscular, ONCE PRN Other, Hypersensitivity Reaction or Anaphylaxis, Starting on Thu08/10/24 at 1431, Until Marcela 08/11/24 at 1430, For 24 hours hEParin 100 UNIT/ML Lock Flush inj 500 Units 500 Units (5 mL), IV Lock, PRN Other, IV Flush, Starting on Thu08/10/24 at 1431, Until Marcela 08/11/24 at 1430, For 24 hours, Do not flush if lock, PICC, or central line not in place; IV infusing or unable to flush. Given 08/10/2024 3:53 PM EDT 500 Units Hydrocortisone Sod Suc (PF) (Solu-Cortef) inj 100 mg 100 mg, IV Push, ONCE PRN Other, Hypersensitivity Reaction, Starting on Thu08/10/24 at 1431, Until Marcela 08/11/24 at 1430, For 24 hours NSS infusion Intravenous, at 50 mL/hr, PRN, Starting on Thu08/10/24 at 1545, Until Discontinued, Maintenance line Start Infusion 08/10/2024 3:12 PM EDT 50 mL/hr oxygen GAS Inhalation, OXYGEN, First dose on Thu08/10/24 at 1600, Until Discontinued, Device/Managed by: Low Flow Device, [...] Flush, Starting on Thu08/10/24 at 1431, Until Marcela 08/11/24 at 1430, For 24 hours, Do not flush if lock, PICC, or central line not in place; IV infusing or unable to flush. Given 08/10/2024 3:53 PM EDT 10 mL Inactive Administered Medications [...] 3:13 PM EDT 400 mg 210 mL/hr documented in this encounter Care Teams Flour Blender Helper Relationship Specialty Start Date End Date Buddy Patel III, MD 200 [facility] [place] [address] PCP - General Family Medicine 04/29/23 documented as of this encounter
--- OUTSIDE RECORDS SUMMARY | 2024-10-25 00:59 | External Medical Summary ---
Author Name Unknown Address Unknown Organization K09:[facility] [place] [address] Laboratory Report Ordering Provider Test Date Status TEJAS TORRES 08/10/2024 13:46:33 Final Observation Date Value Abnormality Reference (Units ) Status Color of Urine by Auto 08/10/2024 13:46:33 Yellow Final Clarity, Urine 08/10/2024 13:46:33 Clear Final Glucose [Mass/volume] in Urine by Automated test strip 08/10/2024 13:46:33 Negative (mg/dL) Final Bilirubin.total [Presence] in Urine by Automated test strip 08/10/2024 13:46:33 Negative Final Ketones [Mass/volume] in Urine by Automated test strip 08/10/2024 13:46:33 Negative (mg/dL) Final Specific gravity, Urine 08/10/2024 13:46:33 <=1.005 1.003-1.030 Final Hemoglobin [Presence] in Urine by Automated test strip 08/10/2024 13:46:33 Trace-intact Final pH, Urine 08/10/2024 13:46:33 5.5 5.0-7.5 (Units) Final Protein [Mass/volume] in Urine by Automated test strip 08/10/2024 13:46:33 Negative (mg/dL) Final Urobilinogen [Mass/volume] in Urine by Automated test strip 08/10/2024 13:46:33 0.2 (mg/dL) Final Nitrite [Presence] in Urine by Automated test strip 08/10/2024 13:46:33 Negative Negative Final Leukocyte esterase [Presence] in Urine by Automated test strip 08/10/2024 13:46:33 Negative Negative Final RBC, Urine 08/10/2024 13:46:33 0-2 0-2 (/HPF) Final WBC, Urine 08/10/2024 13:46:33 0-2 0-2 (/HPF) Final Bacteria [#/area] in Urine sediment by Microscopy high power field 08/10/2024 13:46:33 0-25 0-25 (/HPF) Final Performing Location [facility] [place] [address]
--- OUTSIDE RECORDS SUMMARY | 2024-10-25 00:59 | External Medical Summary | Summary of Care ---
Author Name Unknown Organization [facility] Address [address] [place] [address] Phone [phone] Care Team Providers Care Sole Seamer Name Role Phone Amanda BROWN MD, Buddy Britton Primary Care Provider [phone] Reason for Visit * Reason Comments Outpatient Testing Encounter Details Date Type Department Care Team (Late st Contact Info) Description 08/10/2024 1:00 PM EDT Laboratory Laboratory [facility] [address] [place] [address] [facility] 200 [facility] [place], [place] [phone] Metastatic colon cancer to liver (HCC); Malignant [...] Sprays into each nostril in the morning. [place] hand to apply. 16 g 3 11/25/2023 [...] Team (Late st Contact Info) Description 08/10/2024 2:00 PM EDT Hem/Onc Treatment Hematology/Oncology Treatment, [facility] [address] [place] [address] Verna, Chair 8 Hem Onc [address] [place] [address] Arrived 08/16/2024 1:45 PM EDT Pharmacy Pharmacy Hematology Oncology [address] [address] [facility] Hem[facility]Onc [address] [place] [address] 10/27/2024 7:40 AM EST Office Visit Family Practice Robin Gillespie [facility] 200 [facility] [place] [address] Buddy Patel III, MD 200 [facility] [place] [address] Pending Results Name Type Priority Associated Diagnoses Date /Time CBC WITH WBC DIFFERENTIAL Lab STAT Metastatic colon cancer to liver (HCC) Malignant neoplasm of sigmoid colon (HCC) 08/10/2024 12:51 PM EDT COMPREHENSIVE METABOLIC PANEL Lab STAT Metastatic colon cancer to liver (HCC) Malignant neoplasm of sigmoid colon (HCC) 08/10/2024 12:51 PM EDT CBC Lab STAT Metastatic colon cancer to liver (HCC) Malignant neoplasm of sigmoid colon (HCC) 08/10/2024 12:51 PM EDT DIFFERENTIAL, AUTOMATED Lab STAT Metastatic colon cancer to liver (HCC) Malignant neoplasm of sigmoid colon (HCC) 08/10/2024 12:51 PM EDT Health Maintenance Due Date Last Done Comments COVID-19 Vaccine (#1) 1968 HIV Screening 1978 Hepatitis C Screening 1981 DTap/Tdap Vaccines (1 - Tdap) 1982 Zoster Vaccines (1 of 2) 1982 Cologuard 2008 Fecal Occult Blood Test 2008 Sigmoidoscopy 2008 Influenza Vaccine (FLU shot) (#1) 2024 Depression Screening 08/07/2024 08/07/2023 Diabetes Screening 08/02/2027 08/02/2024, 0 07/19/2024, 07/12/2024, Additional history exists Lipid Panel 12/01/2028 12/01/2023, [...] encounter Medical Devices Implanted Type Area Director Industrial Nursing Device Identifier Shelf Expiration Date Model / Serial / Lot Port Implant W/8f Poly Cath - [id number] Implanted:Qty : 1 on 05/06/2023 by Leonardo Castro, at OR [facility] Right: Chest CR BARD : PERIPHERAL VASCULAR [id number] 07/16/2024 [id number] / / [id number] documented as of this encounter Visit Diagnoses Diagnosis Metastatic colon cancer to liver (HCC) Malignant neoplasm of colon, unspecified site Malignant neoplasm of sigmoid colon (HCC) Malignant neoplasm of sigmoid colon documented in this encounter Care Teams Sole Seamer Relationship Specialty Start Date End Date Buddy Patel III, MD 200 [place] [address] PCP - General Family Medicine 04/29/23 documented as of this encounter
--- OUTSIDE RECORDS SUMMARY | 2024-10-25 00:59 | External Medical Summary | Summary of Care ---
Author Name Unknown Organization [facility] Address [address] [place] [address] Phone [phone] Care Team Providers Care Service Consultant Name Role Phone Amanda BROWN MD, Buddy Britton Primary Care Provider [phone] Reason for Visit * Reason Onset Date Comments Medication Update 08/12/2024 FYI 08/12/2024 Encounter Details Date Type Department Care Team (Late st Contact Info) Description 08/12/2024 Telephone Hematology/Oncology [facility] Verna [place] 200 [facility] [place] [address] Yanet Berg MD 200 [facility] [place] [address] Medication Update; Allergies No known active allergiesdocumented as of this encounter (statuses as of 08/12/2024) Medications Medication Sig Dispensed Refills Start Date [...] Sprays into each nostril in the morning. [place] hand to apply. 16 g 3 11/25/2023 [...] as of this encounter (statuses as of 08/12/2024) Active Problems Problem Noted Date Diagnosed Date Encounter for antineoplastic chemotherapy 2023 Metastatic colon cancer to liver 11/25/2023 Protein-calorie malnutrition 08/07/2023 Malignant neoplasm of sigmoid colon 04/22/2023 Encounter for antineoplastic chemotherapy 2022 documented as of this encounter (statuses as of 08/12/2024) Immunizations Name Administration Dates Next Due Pneumococcal [...] encounter Miscellaneous Notes * Telephone Encounter - Kellie Booker CPhT - 08/12/2024 9:07 AM EDT MEDICATION THERAPY MANAGEMENT TRIFLURIDINE/TIPIRACIL [place] [id number] Patient Phone Numbers Application Craft [phone] Communication: Spoke to Caller Treatment: Medication: Trifluridine/Tipiracil (Lonsurf) Indication/Staging/Diagnosis Code: met colon cancer / C18.7 Dose Basis: 35mg/m2 (BSA 2m2) Dose: 70mg BID D1-5 and 8-12 every 28 days Administration: with food Start Date: TBD Primary Merchandise Shopper/Oncologist: Dr. Berg Caller: Incoming Request: Patient has questions regarding oral chemotherapy calling to inform patient was approved for pharmacy nain and Lonsurf will be arriving either today, tomorrow or Thursday. She will be calling [facility] to confirm exact delivery date and ask shipmentquestions I was unable to answer. She would like to know when he should begin taking Lonsurf. Explained one of our pharmacist will contact her next week for chemo education and will advise whenhe should start his cycle. She voiced understanding and will wait for a call. Kellie Booker Manager Estate III Hematology Oncology Oral Chemotherapy Clinic Medication Therapy Disease Management [facility] 08/12/2024 9:14 AM Time Spent on Encounter: 11 - 15 minutes documented in this encounter Plan of Treatment Upcoming Encounters Date Type Department Care Team (Late st Contact Info) Description 08/15/2024 9:45 AM EDT Pharmacy Pharmacy Hematology Oncology [facility] [address] [place] [address] [facility] Hem/Onc [address] [place] [address] 08/24/2024 8:00 AM EDT Laboratory Laboratory [facility] [place] [address] [place] [phone] Verna, Lab Scenery 200 [facility] [place] [address] 08/24/2024 9:00 AM EDT Hem/Onc Treatment Hematology/Oncology Treatment, [place] [address] [place] [phone] Verna, Chair 3 Hem Onc [address] [place] [address] 09/07/2024 9:30 AM EDT Laboratory [facility] [place] [address] [place] [phone] Verna, Lab [address]enery [address] [place] [address] 09/07/2024 10:00 AM EDT Office Visit Hematology/Oncology [facility] [place] 200 [facility] [place] [phone] Anahy Rowan CRNP 400 [facility] [place] [address] 09/07/2024 10:30 AM EDT Hem/Onc Treatment Hematology/Oncology Treatment, [place] [address] [facility] [address] [place] [phone] Verna, Chair 1 Hem Onc [address] [place] [address] 10/05/2024 9:30 AM EST Office Visit Hematology/Oncology [facility] [place] 200 [facility] [place] [phone] Yanet Berg MD 200 [facility] [place] [address] 10/27/2024 7:40 AM EST Office Visit Family Practice [facility] [place] 200 [facility] [place] [address] Buddy Patel III, MD 200 [facility] [place] [address] Health Maintenance Due Date Last Done Comments [...] this encounter Medical Devices Implanted Type Area Mutuel Cashier Device Identifier Shelf Expiration Date Model / Serial / Lot Port Implant W/8f Poly Cath - [id number] Implanted:Qty : 1 on 05/06/2023 by Leonardo Castro DO at OR [facility] Right: Chest CR BARD : PERIPHERAL VASCULAR [id number] 07/16/2024 [id number] / / [id number] documented as of this encounter Visit Diagnoses Diagnosis Malignant neoplasm of sigmoid colon (HCC)- Primary Malignant neoplasm of sigmoid colon documented in this encounter Care Teams Service Consultant Relationship Specialty Start Date End Date Buddy Patel III, MD 200 [facility] [address] PCP - General Family Medicine 04/29/23 documented as of this encounter
--- OUTSIDE RECORDS SUMMARY | 2024-10-25 00:59 | External Medical Summary | Summary of Care ---
Author Name Unknown Organization [facility] Address [address] [place] [address] Phone [phone] Care Team Providers Care Monotype Caster Name Role Phone Amanda BROWN MD, Buddy Britton Primary Care Provider [phone] Reason for Visit * Reason Onset Date Comments Medication Update 08/12/2024 FYI 08/12/2024 Encounter Details Date Type Department Care Team (Late st Contact Info) Description 08/12/2024 Telephone Hematology/Oncology [facility] Verna [place] 200 [facility] [place] [address] Yanet Berg MD 200 [facility] [place] [address] Medication Update; Allergies No known active allergiesdocumented [...] Sprays into each nostril in the morning. [place] hand to apply. 16 g 3 11/25/2023 [...] evening. He would like to start it Thursday morning (plans to take it around 10am with breakfast) but she wants to make sure this would be ok. Advised her that we will review with provider and call her Thursday morning. She verbalized understanding. * Telephone Encounter - Kellie Booker CPhT - 08/12/2024 9:07 AM EDT MEDICATION THERAPY MANAGEMENT TRIFLURIDINE/TIPIRACIL [place] [id number] Patient Phone Numbers Communication: Spoke to Caller Treatment: Medication: Trifluridine/Tipiracil (Lonsurf) Indication/Staging/Diagnosis Code: met colon cancer / C18.7 Dose Basis: 35mg/m2 (BSA 2m2) Dose: 70mg BID D1-5 and 8-12 every 28 days Administration: with food Start Date: TBD Primary Product Advisor/Oncologist: Dr. Berg Caller: Incoming Request: Patient has questions regarding oral chemotherapy calling to inform patient was approved for pharmacy nain and Lonsurf will be arriving either today, tomorrow or Thursday. She will be calling [facility] to confirm exact delivery date and ask shipmentquestions I was unable to answer. She would like to know when he should begin taking Lonsurf. Explained one of our pharmacist will contact her next week for chemo education and will advise whenhe should start his cycle. She voiced understanding and will wait for a call. Kellie Booker Field Sales Associate III Hematology Oncology Oral Chemotherapy Clinic Medication Therapy Disease Management [facility] 08/12/2024 9:14 AM Time Spent on Encounter: 11 - 15 minutes documented in this encounter Plan of Treatment Upcoming Encounters Date Type Department Care Team (Late st Contact Info) Description 08/15/2024 9:45 AM EDT Pharmacy Pharmacy Hematology Oncology [facility] [address] [place] [address] [facility] Hem/Onc [address] [place] [address] 08/24/2024 8:00 AM EDT Laboratory Laboratory [facility] [address] [place] [phone] Verna, Lab Scenery [address] [place] [address] 08/24/2024 9:00 AM EDT Hem/Onc Treatment Hematology/Oncology Treatment, [place] 200 [facility], [place] [phone] Verna, Chair 3 Hem Onc [facility] 200 [facility] [place], [place] [address] 09/07/2024 9:30 AM EDT Laboratory Laboratory [facility] [place] [address] [place], [place] [phone] Verna, Lab [facility] 200 [facility] [place], [place] [address] 09/07/2024 10:00 AM EDT Office Visit Hematology/Oncology [facility] [place] 200 [facility] [place], [place] [phone] Anahy Rowan CRNP [address] [place] [address] 09/07/2024 10:30 AM EDT Hem[facility] [address] [facility], [place] [phone] Verna, Chair 1 Hem Onc [facility] 200 [facility] [place], [place] [address] 10/05/2024 9:30 AM EST Office Visit Hematology/Oncology [facility] [place] [address] [place], [place] [phone] Yanet Berg MD 200 [facility] [place], [place] [address] 10/27/2024 7:40 AM EST Office Visit Family Practice [facility] [place] 200 [facility] [place] [address] Buddy Patel III, MD 200 [facility] [place] [address] Health Maintenance Due Date Last Done Comments [...] this encounter Medical Devices Implanted Type Area Electrical Engineer Device Identifier Shelf Expiration Date Model / Serial / Lot Port Implant W/8f Poly Cath - [id number] Implanted:Qty : 1 on 05/06/2023 by Leonardo Castro DO at OR [facility] Right: Chest CR BARD : PERIPHERAL VASCULAR [id number] 07/16/2024 [id number] / / [id number] documented as of this encounter Visit Diagnoses Diagnosis Malignant neoplasm of sigmoid colon (HCC)- Primary Malignant neoplasm of sigmoid colon documented in this encounter Care Teams Monotype Caster Relationship Specialty Start Date End Date Buddy Patel III, MD 200 [facility] [place] [address] PCP - General Family Medicine 04/29/23 documented as of this encounter
--- OUTSIDE RECORDS SUMMARY | 2024-10-25 01:00 | External Medical Summary | Summary of Care ---
Author Name Unknown Organization [facility] Address [address] [place] [address] Phone [phone] Care Team Providers Care Lay Out And Detail Drafter Name Role Phone Amanda BROWN MD, Buddy Britton Primary Care Provider [phone] Reason for Visit * Reason Onset Date Comments Advice 08/08/2024 Encounter Details Date Type Department Care Team (Late st Contact Info) Description 08/08/2024 Telephone Hematology/Oncology [facility] [place] [address] [place] [address] Services, Scheduling [address] [place] [address] Advice Allergies No known active allergiesdocumented as of this encounter (statuses as of 08/09/2024) Medications Medication Sig Dispensed Refills Start Date [...] Sprays into each nostril in the morning. [place] hand to apply. 16 g 3 11/25/2023 [...] day cycle. 40 Tablet 5 08/04/2024 Active oxyCODONE HCl 5 MG Oral Tablet (Oxy IR)Indications:M alignant neoplasm of sigmoid colon (HCC) Take 1 Tablet by mouth every 6 hours as needed for Pain, Severe. 120 Tablet 07/04/2024 08/08/2024 Discontinue d(Refill) HYDROcodone-Acet aminophen 7.5-325 MG Oral TabletIndication s:Malignant neoplasm of sigmoid colon (HCC) Take 1 Tablet by mouth every 6 hours as needed for Pain, Severe. 120 Tablet 07/08/2024 08/08/2024 Discontinue d(Refill) documented as of this encounter (statuses as of 08/09/2024) Active Problems Problem Noted Date Diagnosed Date Encounter for antineoplastic chemotherapy 2023 Metastatic colon cancer to liver 11/25/2023 Protein-calorie malnutrition 08/07/2023 Malignant neoplasm of sigmoid colon 04/22/2023 Encounter for antineoplastic chemotherapy 2022 documented as of this encounter (statuses as of 08/09/2024) Immunizations Name Administration Dates Next Due Pneumococcal [...] Telephone Encounter - Brenda Cantrell RN - 08/09/2024 1:20 PM EDT Left message for Miri to return call. Per chart review, looks like copay assistance in process, Yolette mailed patient [facility] yesterday to help with lonsurf copay. Can get started with zirabev now and then add lonsurf in later if patient prefers to do so. * Telephone Encounter - Candace Bustillos OSA - 08/09/2024 9:16 AM EDT Called to see what it was regarding - if she just needed an appt scheduled that was missed or... but pts sister said it was to ask for brenda She said they are having issues with the chemo pills due to the co pay Mendez has been worrying about this since its been a few weeks Is there something else that they can do other than the pills or is there something that they can do to help with the money byrne due to the amount of money its out of pocket Pts sister did say that she was going to call nata They are asking for a call back * Telephone Encounter - Rosa Mora OSA - 08/08/2024 2:59 PM EDT Miri called in regards to Mendez asking to speak with the treatment dept she has questions about upcoming appts Please call her back thank you documented in this encounter Plan of Treatment Upcoming Encounters Date Type Department Care Team (Late st Contact Info) Description 08/16/2024 1:45 PM EDT Pharmacy Pharmacy Hematology Oncology [facility] [address] [place] [address] [facility], [facility] Hem/Onc [address] [place] [address] 10/27/2024 7:40 AM EST Office Visit Family Practice [facility] [address] [place] [address] Buddy Patel III, MD [address] [place] [address] Health Maintenance Due Date Last Done Comments [...] this encounter Medical Devices Implanted Type Area Fermenting Cellar Dropper Device Identifier Shelf Expiration Date Model / Serial / Lot Port Implant W/8f Poly Cath - [id number] Implanted:Qty : 1 on 05/06/2023 by Leonardo Castro, at OR [facility] Right: Chest CR BARD : PERIPHERAL VASCULAR [id number] 07/16/2024 [id number] / / [id number] documented as of this encounter Care Teams Lay Out And Detail Drafter Relationship Specialty Start Date End Date Buddy Patel III, MD [address] [place] [address] PCP - General Family Medicine 04/29/23 documented as of this encounter
--- OUTSIDE RECORDS SUMMARY | 2024-10-25 01:00 | External Medical Summary | Summary of Care ---
Author Name Unknown Organization [facility] Address [address] [place] [address] Phone [phone] Care Team Providers Care Chemical Research Technician Name Role Phone Amanda BROWN MD, Buddy Britton Primary Care Provider [phone] Reason for Visit * Reason Onset Date Comments Precert Future 08/03/2024 dyan Nieves Encounter Details Date Type Department Care Team (Late st Contact Info) Description 08/03/2024 Telephone Hematology/Oncology Treatment, [place] [address] [place] [address] Yanet Berg MD [address] [place] [address] Precert Future (dyan Nieves) Allergies No known active allergiesdocumented as of [...] Sprays into each nostril in the morning. [place] hand to apply. 16 g 3 11/25/2023 [...] in the morning. 30 Tablet 08/03/2024 Active oxyCODONE HCl 5 MG Oral Tablet [...] Encounter - Brenda Cantrell RN - 08/09/2024 3:41 PM EDT Called Miri- patient would like to come tomorrow. Scheduling: please add appts per previous note. Thanks! * Telephone Encounter - Brenda Cantrell RN - 08/09/2024 2:54 PM EDT Called Miri. She states that patient is afraid that he is going to before starting treatment, asking about alternate treatments. Advised Miri that we can start patient on IV zirabev and then add in lonsurf once copay assistanceis obtained. She confirmed that she emailed assistance application back this morning. Offered appts for tomorrow - labs "CBCd, CMP, UA" at 1pm - 2 hour appt "C1D1 zirabev" at 2pm She is going to call Mendez to see if he wants to do this and then will call us back. * Telephone Encounter - Nicholas Anders RN - 08/05/2024 11:28 AM EDT Referrals entered for both Zirabev and LONSURF. Assistance aware of copay for LONSURF, script submitted to [facility] to look into assistance. Per discussion- will try to have patient start both LONSURF and Zirabev unless there's prolonged delays with copay assistance. * Telephone Encounter - Brenda Cantrell RN - 08/04/2024 2:17 PM EDT Spoke to both patient and sister on speakerphone. Reviewed lonsurf side effects, schedule, how to take it. Advised that this has been approved by insurance, still waiting to find out what pharmacy will be able to fill this. Reviewed that we will schedule for zirabev and lonsurf to start the same day to have lab work line up- if delay in getting lonsurf (like if copay assistance needed), can start zirabev sooner. Patient and sister verbalized understanding of above. MTM: please call Miri (patients sister) with any information- she helps manage patients care, patient is very forgetful so stated he would like all calls to go to her. * Telephone Encounter - Brenda Cantrell RN - 08/04/2024 9:58 AM EDT Left message for Mendez to return call. * Telephone Encounter - Brenda Cantrell RN - 08/03/2024 9:27 AM EDT Order received for lonsurf and zirabev. [place] plan adjusted. Waiting for auth. Consent signed 08/03/24. Patient has received zirabev in the past. Will need to follow up for lonsurf education. Hep B labs 04/22/23. MTM: MARYI on order. documented in this encounter Plan of Treatment Upcoming Encounters Date Type Department Care Team (Late st Contact Info) Description 08/16/2024 1:45 PM EDT Pharmacy Pharmacy Hematology Oncology [place] [address] [place] [address] [facility]m, [facility] Hem/Onc [address] [place] [address] 10/27/2024 7:40 AM EST Office Visit Family Practice Robin Gillespie [place] [address] [place] [address] Buddy Patel III, MD [address] [place] [address] Scheduled Orders Name Type Priority Associated Diagnoses Orde r Schedule CBC WITH WBC DIFFERENTIAL Lab STAT Metastatic colon cancer to liver (HCC) Malignant neoplasm of sigmoid colon (HCC) Every 2 Weeks for 26 Occurrences starting 08/03/2024 until 08/03/2025 COMPREHENSIVE METABOLIC PANEL Lab STAT Metastatic colon cancer to liver (HCC) Malignant neoplasm of sigmoid colon (HCC) Every 2 Weeks for 26 Occurrences starting 08/03/2024 until 08/03/2025 URINALYSIS, REFLEX TO MICROSCOPIC Lab STAT Metastatic colon cancer to liver (HCC) Malignant neoplasm of sigmoid colon (HCC) Every 2 Weeks for 26 Occurrences starting 08/03/2024 until 08/03/2025 Health Maintenance Due Date Last Done Comments [...] this encounter Medical Devices Implanted Type Area Wood Dowel Machine Operator Device Identifier Shelf Expiration Date Model / Serial / Lot Port Implant W/8f Poly Cath - [id number] Implanted:Qty : 1 on 05/06/2023 by Leonardo Castro, at OR [facility] Right: Chest CR BARD : PERIPHERAL VASCULAR [id number] 07/16/2024 [id number] / / [id number] documented as of this encounter Visit Diagnoses Diagnosis Metastatic colon cancer to liver (HCC)- Primary Malignant neoplasm of colon, unspecified site Malignant neoplasm of sigmoid colon (HCC) Malignant neoplasm of sigmoid colon documented in this encounter Care Teams Chemical Research Technician Relationship Specialty Start Date End Date Buddy Patel III, MD [address] [facility] [place] [address] PCP - General Family Medicine 04/29/23 documented as of this encounter
--- OUTSIDE RECORDS SUMMARY | 2024-10-25 01:00 | External Medical Summary | Summary of Care ---
Author Name Unknown Organization [facility] Address [address] [place] [address] Phone [phone] Care Team Providers Care Radiotelegrapher Name Role Phone Amanda BROWN MD, Buddy Britton Primary Care Provider [phone] Reason for Visit * Reason Onset Date Comments Precert Future 08/03/2024 dyan Nieves Encounter Details Date Type Department Care Team (Late st Contact Info) Description 08/03/2024 Telephone Hematology/Oncology Treatment, [place] [address] [place] [address] Yanet Berg MD [address] [place] [address] Precert Future (dyan Nieves) Allergies No known [...] Sprays into each nostril in the morning. [place] hand to apply. 16 g 3 11/25/2023 [...] encounter Miscellaneous Notes * Telephone Encounter - Candace Bustillos OSA - 08/09/2024 3:46 PM EDT Apts are scheduled per noted below * Telephone Encounter - Brenda Cantrell RN [...] of copay for LONSURF, script submitted to [facility] to look into assistance. Per discussion- will [...] EDT Order received for lonsurf and zirabev. [place] plan adjusted. Waiting for auth. Consent signed 08/03/24. Patient has received zirabev in the past. Will need to follow up for lonsurf education. Hep B labs 04/22/23. MTM: FYI on order. documented in this encounter Plan of Treatment Upcoming Encounters Date Type Department Care Team (Late st Contact Info) Description 08/10/2024 1:00 PM EDT Laboratory Laboratory [facility] [address] [place] [phone] Alesha Gillespie [address] [place] [address] 08/10/2024 2:00 PM EDT Hem/Onc Treatment Hematology/Oncology Treatment, [address] [place] [phone] Verna, Chair [address] Hem On[address] [place] [address] 08/16/2024 1:45 PM EDT Pharmacy Pharmacy Hematology Oncology [place] [address] [place] [address] [facility], [facility] Hem/Onc [facility] [place] [address] 10/27/2024 7:40 AM EST Office Visit Family Practice [facility] [place] [address] [facility] [place] [place] [address] Aguada IIIBuddy MD [address] [place] [address] [facility] [place] [address] Scheduled Orders Name Type Priority Associated Diagnoses [...] this encounter Medical Devices Implanted Type Area Ambulance Dispatcher Device Identifier Shelf Expiration Date Model / Serial / Lot Port Implant W/8f Poly Cath - [id number] Implanted:Qty : 1 on 05/06/2023 by Leonardo Castro DO at OR [facility] Right: Chest CR BARD : PERIPHERAL VASCULAR [id number] 07/16/2024 [id number] / / [id number] documented as of this encounter Visit Diagnoses Diagnosis Metastatic colon cancer to liver (HCC)- Primary Malignant neoplasm of colon, unspecified site Malignant neoplasm of sigmoid colon (HCC) Malignant neoplasm of sigmoid colon documented in this encounter Care Teams Radiotelegrapher Relationship Specialty Start Date End Date Buddy Patel III, MD [address] [facility] [place] [address] PCP - General Family Medicine 04/29/23 documented as of this encounter
--- OUTSIDE RECORDS SUMMARY | 2024-10-25 01:00 | External Medical Summary ---
Author Name Unknown Address Unknown Organization K09:[facility] [place] [address] Laboratory Report Ordering Provider Test Date Status TEJAS TORRES 08/10/2024 12:51:40 Final Observation Date Value Abnormality Reference (Units ) Status Nucleated erythrocytes/100 leukocytes [Ratio] in Blood by Automated count 08/10/2024 12:51:40 Final Schistocytes 08/10/2024 12:51:40 Few Abnormal None Seen Final Performing Location [facility] [place] [address]
--- OUTSIDE RECORDS SUMMARY | 2024-10-25 01:00 | External Medical Summary | Summary of Care ---
Author Name Unknown Organization [facility] Address [address] [place] [address] Phone [phone] Care Team Providers Care Audio Installer Name Role Phone Amanda BROWN MD, Buddy Britton Primary Care Provider [phone] Reason for Visit * Reason Onset Date Comments Precert Future 08/03/2024 dyan Nieves Encounter Details Date Type Department Care Team (Late st Contact Info) Description 08/03/2024 Telephone Hematology/Oncology Treatment, [place] [address] [place] [address] Yanet Berg MD [address] [place] [address] Precert Future (dyan Nieves) Allergies No known [...] Sprays into each nostril in the morning. [place] hand to apply. 16 g 3 11/25/2023 [...] Telephone Encounter - Brenda Cantrell RN - 08/10/2024 7:53 AM EDT Following for patient to receive lonsurf. * Telephone Encounter - Candace Bustillos OSA [...] copay for LONSURF, script submitted to [facility] to look into assistance. Per [...] EDT Order received for lonsurf and zirabev. [place] plan adjusted. Waiting for auth. Consent signed 08/03/24. Patient has received zirabev in the past. Will need to follow up for lonsurf education. Hep B labs 04/22/23. MTM: FYI on order. documented in this encounter Plan of Treatment Upcoming Encounters Date Type Department Care Team (Late st Contact Info) Description 08/10/2024 1:00 PM EDT Laboratory Laboratory [facility] Verna [place] [address] [facility] [place] [phone] Verna [facility] [place] [address] [place] [address] 08/10/2024 2:00 PM EDT Hem/Onc Treatment Hematology/Oncology Treatment, [place] [address] [facility] [address] [place] [phone] Verna, Chair 8 Hem Onc [place] [address] [place] [address] 08/16/2024 1:45 PM EDT Pharmacy Pharmacy Hematology Oncology [facility] [address] [place] [address] [facility], [facility] Hem/Onc [address] [place] [address] 10/27/2024 7:40 AM EST Office Visit Family Practice [place] Verna [place] [address] [place] [address] Buddy Patel III, MD [address] [facility] [place] [address] Scheduled Orders Name Type Priority Associated Diagnoses [...] this encounter Medical Devices Implanted Type Area Swatcher Device Identifier Shelf Expiration Date Model / Serial / Lot Port Implant W/8f Poly Cath - [id number] Implanted:Qty : 1 on 05/06/2023 by Leonardo Castro DO at OR [facility] Right: Chest CR BARD : PERIPHERAL VASCULAR [id number] 07/16/2024 [id number] / / [id number] documented as of this encounter Visit Diagnoses Diagnosis Metastatic colon cancer to liver (HCC)- Primary Malignant neoplasm of colon, unspecified site Malignant neoplasm of sigmoid colon (HCC) Malignant neoplasm of sigmoid colon documented in this encounter Care Teams Audio Installer Relationship Specialty Start Date End Date Buddy Patel III, MD [address] [facility] [place] [address] PCP - General Family Medicine 04/29/23 documented as of this encounter
--- OUTSIDE RECORDS SUMMARY | 2024-10-25 01:01 | External Medical Summary | Summary of Care ---
Author Name Unknown Organization [facility] Address [address] [place] [address] Phone [phone] Care Team Providers Care Quality Assistant Name Role Phone Amanda BROWN MD, Buddy Britton Primary Care Provider [phone] Reason for Visit * Reason Onset Date Comments Advice 08/08/2024 Encounter Details Date Type Department Care Team (Late st Contact Info) Description 08/08/2024 Telephone Hematology/Oncology [facility] [place] [address] [place] [address] Services, Scheduling [address] [place] [address] Advice Allergies No known active allergiesdocumented as [...] Sprays into each nostril in the morning. [place] hand to apply. 16 g 3 11/25/2023 [...] assistance in process, Yolette mailed patient pharmacy [facility] yesterday to help with lonsurf copay. [...] Care Team (Late st Contact Info) Description 08/09/2024 1:45 PM EDT Pharmacy Pharmacy Hematology Oncology [address] [address] [facility], [facility] Hem/Onc [address] [place] [address] Malignant neoplasm of sigmoid colon (HCC)* 08/16/2024 1:45 PM EDT Pharmacy Pharmacy Hematology Oncology [place] [address] [place] [address] [facility], [facility] Hem/Onc [address] [place] [address] 10/27/2024 7:40 AM EST Office Visit Family [facility] Robin Gillespie [place] [address] [place] [address] Buddy Patel III, MD [address] [place] [address] Health Maintenance Due Date Last Done Comments [...] this encounter Medical Devices Implanted Type Area Shift Mechanic Device Identifier Shelf Expiration Date Model / Serial / Lot Port Implant W/8f Poly Cath - [id number] Implanted:Qty : 1 on 05/06/2023 by [facility] Right: Chest CR BARD : PERIPHERAL VASCULAR [id number] 07/16/2024 [id number] / / [id number] documented as of this encounter Care Teams Quality Assistant Relationship Specialty Start Date End Date Buddy Patel III, MD [address] [place] [address] PCP - General Family Medicine 04/29/23 documented as of this encounter
--- OUTSIDE RECORDS SUMMARY | 2024-10-25 01:01 | External Medical Summary | Summary of Care ---
Author Name Unknown Organization [facility] Address [address] [place] [address] Phone [phone] Care Team Providers Care Jewel Lathe Operator Name Role Phone Amanda BROWN MD, Buddy Britton Primary Care Provider [phone] Reason for Visit * Reason Onset Date Comments Advice 08/08/2024 Encounter Details Date Type Department Care Team (Late st Contact Info) Description 08/08/2024 Telephone Hematology/Oncology [facility] [place] [address] [place] [address] Services, Scheduling [address] [place] [address] Advice Allergies No known active allergiesdocumented as [...] Sprays into each nostril in the morning. [place] hand to apply. 16 g 3 11/25/2023 [...] assistance in process, Yolette mailed patient pharmacy [facility] yesterday to help with lonsurf copay. Can [...] 1:45 PM EDT Pharmacy Pharmacy Hematology Oncology [facility] [address] [place] [address] [facility], [facility] Hem[facility]Onc [address] [place] [address] 10/27/2024 7:40 AM EST Office Visit Family Practice [facility] [address] [place] [address] Buddy Patel III, MD [address] [place] [address] Health Maintenance Due Date Last Done Comments [...] this encounter Medical Devices Implanted Type Area Credit Or Loans Officer Device Identifier Shelf Expiration Date Model / Serial / Lot Port Implant W/8f Poly Cath - [id number] Implanted:Qty : 1 on 05/06/2023 by Leonardo Castro, at OR [facility] Right: Chest CR BARD : PERIPHERAL VASCULAR [id number] 07/16/2024 [id number] / / [id number] documented as of this encounter Care Teams Jewel Lathe Operator Relationship Specialty Start Date End Date Buddy Patel III, MD [address] [place] [address] PCP - General Family Medicine 04/29/23 documented as of this encounter
--- OUTSIDE RECORDS SUMMARY | 2024-10-25 01:01 | External Medical Summary | Summary of Care ---
Author Name Unknown Organization [facility] Address [address] [place] [address] Phone [phone] Care Team Providers Care Sign Erector Name Role Phone Amanda BROWN MD, Buddy Britton Primary Care Provider [phone] Reason for Visit * Reason Comments Medication Management * Evaluate & Treat - Unlimited Visits (Within 10 days (routine)) - Authorized Specialty Diagnoses / Procedures Referred By Contac t Referred To Contact Pharmacist / Pharmacy Diagnoses Malignant neoplasm of sigmoid colon (HCC) Carisa Arceo, [facility] [address] [place] [address] Referral ID Status Reason Start Date Expiration Date Visits Requested Visits Authorized [id number] Authorized Specialty Services Required 08/04/2024 99 99 Encounter Details Date Type Department Care Team (Late st Contact Info) Description 08/09/2024 1:45 PM EDT Pharmacy Pharmacy Hematology Oncology [facility] [address] [place] [address] [facility], [facility] Hem/Onc [address] [place], [place] [id number] Malignant neoplasm of sigmoid colon (HCC)* Allergies [...] Sprays into each nostril in the morning. [place] hand to apply. 16 g 3 11/25/2023 [...] as of this encounter Progress Notes * Kellie Booker CPhT - 08/09/2024 9:28 AM EDT MEDICATION THERAPY MANAGEMENT TRIFLURIDINE/TIPIRACIL INITIAL INTAKE NOTE Mendez Costa [id number] Patient Phone Numbers Communication: Chart review Treatment: Medication: Trifluridine/Tipiracil (Lonsurf) Indication/Staging/Diagnosis Code: met colon cancer / C18.7 Dose Basis: 35mg/m2 (BSA 2m2) Dose: 70mg BID D1-5 and 8-12 every 28 days Administration: with food Start Date: TBD Primary Baking Factory Worker/Oncologist: Dr. Berg Additional Therapy: Bevacizumab Supportive Care Meds: Ondansetron Prophylactic Meds: None Relevant Chronic Medications: Category Medications Pertinent Notes Antihypertensives Atenolol 50mg daily Per PCP Cycle Dates C1 TBD C2 TBD The Hematology/Oncology Oral Chemotherapy Clinic will assess medication compliance at each patient encounter Assessment and plan: Yes/no Date Action Taken [place] plan entered? Yes 08/03/24 Consent completed? Yes 08/03/24 Intro/med rec completed? Yes 08/05/24 Precert completed? Yes 08/03/24 Approved Test claim completed? Yes 08/04/24 GSP - $2448.69 Financial assistance needed? Yes 08/04/24 Physician signature? Yes 08/04/24 Rx released? Education completed? No [facility] open, pharmacy nain application was mailed 08/08 to patient. [facility] will be followingup in 1 week MTM RP will contact patient once med shipped/received to complete medication education Please refer to initial intake note for detailed review of regimen and patient- specific education points Kellie Booker Auger Machine Offbearer III Hematology Oncology Oral Chemotherapy Clinic Medication Therapy Disease Management [facility] 08/09/2024 9:33 AM Time Spent on Encounter: < 5 minutes Encounter Group: Oncology Encounter Interventions Item Category: Oral Chemotherapy Trifluridine/Tipricil Problem/Rationale: Cost/Insurnce Issues Insurance - Other high copay Pharmacist Intervention(s): Patient assistance follow-up [place] of Intervention: Monitoring with no interventions (Level 0) documented in this encounter Plan of Treatment Upcoming Encounters Date Type Department Care Team (Late st Contact Info) Description 08/16/2024 1:45 PM EDT Pharmacy Pharmacy Hematology Oncology [address] [address] [facility], [facility] Hem/Onc [address] [place] [address] 10/27/2024 7:40 AM EST Office Visit Family Practice [facility] [place] [address] [facility] [place] [address] Buddy Patel III, MD [address] [facility] [place] [address] Scheduled Referrals Name Type Priority Associated Diagnoses Orde r Schedule PHARMACIST MEDS THERAPY MGMT REFERRAL OP Referral Within 10 days (routine) Malignant neoplasm of sigmoid colon (HCC) Ordered: 08/04/2024 Health Maintenance Due Date Last Done Comments [...] this encounter Medical Devices Implanted Type Area Instrumentation Engineer Device Identifier Shelf Expiration Date Model / Serial / Lot Port Implant W/8f Poly Cath - [id number] Implanted:Qty : 1 on 05/06/2023 by Leonardo Castro DO at OR [facility] Right: Chest CR BARD : PERIPHERAL VASCULAR [id number] 07/16/2024 [id number] / / [id number] documented as of this encounter Visit Diagnoses Diagnosis Malignant neoplasm of sigmoid colon (HCC)- Primary Malignant neoplasm of sigmoid colon documented in this encounter Care Teams Sign Erector Relationship Specialty Start Date End Date Buddy Patel III, MD [address] [place] [address] PCP - General Family Medicine 04/29/23 documented as of this encounter
--- OUTSIDE RECORDS SUMMARY | 2024-10-25 01:01 | External Medical Summary | Summary of Care ---
Author Name Unknown Organization [facility] Address [address] [place] [address] Phone [phone] Care Team Providers Care Compotype Operator Name Role Phone Amanda BROWN MD, Buddy Britton Primary Care Provider [phone] Reason for Visit * Reason Onset Date Comments Advice 08/08/2024 Encounter Details Date Type Department Care Team (Late st Contact Info) Description 08/08/2024 Telephone Hematology/Oncology [facility] [place] [address] [place] [address] Services, Scheduling [address] [place] [address] Advice Allergies No known active allergiesdocumented as [...] Sprays into each nostril in the morning. [place] hand to apply. 16 g 3 11/25/2023 [...] for sleep 30 Tablet 1 07/04/2024 Active oxyCODONE HCl 5 MG Oral Tablet (Oxy IR)Indications:Clarice gnant neoplasm of sigmoid colon (HCC) Take 1 Tablet by mouth every 6 hours as needed for Pain, Severe. 120 Tablet 07/04/2024 Active HYDROcodone-Acetami nophen 7.5-325 MG Oral TabletIndications:M alignant neoplasm of sigmoid colon (HCC) Take 1 Tablet by mouth every 6 hours as needed for Pain, Severe. 120 Tablet 07/08/2024 Active Potassium Chloride ER 10 MEQ Oral [...] day cycle. 40 Tablet 5 08/04/2024 Active documented as of this encounter (statuses [...] sister said it was to ask for aly She said they are having issues with [...] 1:45 PM EDT Pharmacy Pharmacy Hematology Oncology [facility] [address] [place] [address] Gm, [facility] Hem/Onc [address] [place] [address] 10/27/2024 7:40 AM EST Office Visit Family [facility] [address] [place] [address] Buddy Patel III, MD [address] [place] [address] Health Maintenance Due Date Last Done Comments [...] this encounter Medical Devices Implanted Type Area Relief Master Device Identifier Shelf Expiration Date Model / Serial / Lot Port Implant W/8f Poly Cath - [id number] Implanted:Qty : 1 on 05/06/2023 by Leonardo Castro, at OR [facility] Right: Chest CR BARD : PERIPHERAL VASCULAR [id number] 07/16/2024 [id number] / / [id number] documented as of this encounter Care Teams Compotype Operator Relationship Specialty Start Date End Date Buddy Patel III, MD 200 [facility] [place] [address] PCP - General Family Medicine 04/29/23 documented as of this encounter
--- OUTSIDE RECORDS SUMMARY | 2024-10-25 01:01 | External Medical Summary | Summary of Care ---
Author Name Unknown Organization [facility] Address [address] [place] [address] Phone [phone] Care Team Providers Care Digital Marketing Apprentice Name Role Phone Amanda BROWN MD, Buddy Britton Primary Care Provider [phone] Reason for Visit * Reason Onset Date Comments Precert Future 08/03/2024 dyan Nieves Encounter Details Date Type Department Care Team (Late st Contact Info) Description 08/03/2024 Telephone Hematology/Oncology Treatment, [facility] [address] [place] [address] Yanet Berg MD [address] [place] [address] Precert Future (dyan Nieves) Allergies No known [...] Sprays into each nostril in the morning. [place] hand to apply. 16 g 3 11/25/2023 [...] Miscellaneous Notes * Telephone Encounter - Brenda Catnrell RN - 08/09/2024 2:54 PM EDT Called [...] of copay for LONSURF, script submitted to [facility] to look into assistance. Per discussion- will [...] EDT Order received for lonsurf and zirabev. [place] plan adjusted. Waiting for auth. Consent signed 08/03/24. Patient has received zirabev in the past. Will need to follow up for lonsurf education. Hep B labs 04/22/23. MTM: FYI on order. documented in this encounter Plan of Treatment Upcoming Encounters Date Type Department Care Team (Late st Contact Info) Description 08/16/2024 1:45 PM EDT Pharmacy Pharmacy Hematology Oncology [address] [place] [address] [facility], [facility] Hem/Onc [address] [place] [address] 10/27/2024 7:40 AM EST Office Visit Family Practice [facility] [place] [address] [facility] [place] [address] Buddy Patel III, MD [address] [facility] [place] [address] Scheduled Orders Name Type Priority Associated Diagnoses [...] this encounter Medical Devices Implanted Type Area Data Solutions Architect Device Identifier Shelf Expiration Date Model / Serial / Lot Port Implant W/8f Poly Cath - [id number] Implanted:Qty : 1 on 05/06/2023 by Leonardo Castro, at OR [facility] Right: Chest CR BARD : PERIPHERAL VASCULAR [id number] 07/16/2024 [id number] / / [id number] documented as of this encounter Visit Diagnoses Diagnosis Metastatic colon cancer to liver (HCC)- Primary Malignant neoplasm of colon, unspecified site Malignant neoplasm of sigmoid colon (HCC) Malignant neoplasm of sigmoid colon documented in this encounter Care Teams Digital Marketing Apprentice Relationship Specialty Start Date End Date Buddy Patel III, MD [address] [place] [address] PCP - General Family Medicine 04/29/23 documented as of this encounter
--- OUTSIDE RECORDS SUMMARY | 2024-10-25 01:01 | External Medical Summary | Summary of Care ---
Author Name Unknown Organization [facility] [address] [place] [address] Phone [phone] Care Team Providers Care Electrical Lineman Name Role Phone Amanda BROWN MD, Buddy Britton Primary Care Provider [phone] Encounter Details Date Type Department Care Team (Late st Contact Info) Description 08/09/2024 Telephone Hematology/Oncology, [facility] [address] [place] [address] Yanet Berg MD [address] [place] [address] Allergies No known active allergiesdocumented as of [...] Sprays into each nostril in the morning. [place] hand to apply. 16 g 3 11/25/2023 [...] encounter Miscellaneous Notes * Telephone Encounter - Carisa Davidson, trench digging machine operator - 08/09/2024 10:07 AM EDT MEDICATION THERAPY MANAGEMENT Trifluridine/Tipiracil (Lonsurf) TREATMENT STATUS NOTE Mendez Igor [id number] Patient Phone Numbers Communication: Spoke to Caller Treatment: Medication: Trifluridine/Tipiracil (Lonsurf) Indication/Staging/Diagnosis Code: met colon cancer / C18.7 Dose Basis: 35mg/m2 (BSA 2m2) Dose: 70mg BID D1-5 and 8-12 every 28 days Administration: with food Start Date: TBD Primary Enforcement Officer/Oncologist: Dr. Berg Caller: Other: Sister, Miri Glasgowuble Incoming Request: Other: Patient assitance update Action: Other: [facility] f/u Additional Notes: Requesting an update on Patient assistance. Patient is "afraid he is going to diewhile waiting for medication". Teams messaged [facility] for update. [facility] reached out to Miri Salcido directly and will sent Pharmacy nain application via email for completion. SORAYA Coffman Tech Last Sorter Hematology Oncology Oral Chemotherapy Clinic Medication Therapy Disease Management [facility] 08/09/24,10:18 AM Time Spent on Encounter: 6 - 10 minutes Encounter Group: Oncology Encounter Interventions Item Category: Oral Chemotherapy Trifluridine/Tipricil documented in this encounter Plan of Treatment Upcoming Encounters Date Type Department Care Team (Late st Contact Info) Description 08/09/2024 1:45 PM EDT Pharmacy Pharmacy Hematology Oncology [facility] [address] [place] [address] [facility], [facility] Hem/Onc [address] [place] [address] 10/27/2024 7:40 AM EST Office Visit [facility] [address] [place] [address] Buddy Patel III, MD [address] [place] [address] Health Maintenance Due Date Last Done Comments [...] this encounter Medical Devices Implanted Type Area Neurosurgical Physician Assistant Device Identifier Shelf Expiration Date Model / Serial / Lot Port Implant W/8f Poly Cath - [id number] Implanted:Qty : 1 on 05/06/2023 by Leonardo Castro, at OR [facility] Right: Chest CR BARD : PERIPHERAL VASCULAR [id number] 07/16/2024 [id number] / / [id number] documented as of this encounter Visit Diagnoses Diagnosis Malignant neoplasm of sigmoid colon (HCC)- Primary Malignant neoplasm of sigmoid colon documented in this encounter Care Teams Electrical Lineman Relationship Specialty Start Date End Date Buddy Patel III, MD [address] [facility] [place] [address] PCP - General Family Medicine 04/29/23 documented as of this encounter
--- OUTSIDE RECORDS SUMMARY | 2024-10-25 01:01 | External Medical Summary | Summary of Care ---
Author Name Unknown Organization [facility] Address [address] [place] [address] Phone [phone] Care Team Providers Care Engineering Clerk Name Role Phone Amanda BROWN MD, Evelyne Britton Primary Care Provider [phone] Reason for Referral * Medication Prior Authorization - Closed Specialty Diagnoses / Procedures Referred By Yany severino Referred To Contact Diagnoses Malignant neoplasm of sigmoid colon (HCC) Evelyne Franco III, MD [address] [place] [address] Referral ID Status Reason Start Date Expiration Date Visits Re quested Visits Authorized [id number] Closed 999 999 * Medication Prior Authorization - Closed Specialty Diagnoses / Procedures Referred By Yany severino Referred To Contact Diagnoses Malignant neoplasm of sigmoid colon (HCC) Evelyne Franco III, MD [address] [facility] [address] Referral ID Status Reason Start Date Expiration Date Visits Re quested Visits Authorized [id number] Closed 999 999 Reason for Visit * Reason Onset Date Comments Medication Refill 08/08/2024 Encounter Details Date Type Department Care Team (Late st Contact Info) Description 08/08/2024 Refill [facility] [address] [place] [address] Evelyne Franco III, MD [address] [place] [address] Malignant neoplasm of sigmoid colon (HCC) Allergies [...] Sprays into each nostril in the morning. [place] hand to apply. 16 g 3 11/25/2023 [...] Encounter - Evelyne Franco III, MD - 08/09/2024 9:53 AM EDTSigned Prescriptions: Disp Refills HYDROcodone-Acetaminophen 7.5-325 MG Oral *120 Ta*0 Sig: Take 1 Tablet by mouth every 6 hours as needed for Pain, Severe.Authorizing Provider: EVELYNE FRANCO III oxyCODONE HCl 5 MG Oral Tablet (Oxy IR) 120 Ta*0 Sig: Take 1 Tablet by mouth every 6 hours as needed for Pain, Severe.Authorizing Provider: EVELYNE FRANCO III * Telephone Encounter - Medina Mazariegos [facility] - 08/08/2024 4:41 PM EDTPending Prescriptions: Disp Refills HYDROcodone-Acetaminophen 7.5-325 MG Oral *120 Ta*0 Sig: Take 1 Tablet by mouth every 6 hours as needed for Pain, Severe. oxyCODONE HCl 5 MG Oral Tablet (Oxy IR) 120 Ta*0 Sig: Take 1 Tablet by mouth every 6 hours as needed for Pain, Severe. * Telephone Encounter - Medina Mazariegos [facility] - 08/08/2024 4:40 PM EDT I have reviewed the patients controlled substance dispensing history in the Prescription Drug Monitoring Program in compliance with the [facility] regulations before prescribing a controlled substance. PDMP checked on 08/08/2024. Pending Prescriptions: Disp Refills HYDROcodone-Acetaminophen 7.5-325 MG Oral*120 Ta*0 Sig: Take 1 Tablet by mouth every 6 hours as needed for Pain, Severe. oxyCODONE HCl 5 MG Oral Tablet (Oxy IR) 120 Ta*0 Sig: Take 1 Tablet by mouth every 6 hours as needed for Pain, Severe. Last Visit: 07/28/2024 (in office), Visit date not found (telemedicine) Next Visit: 10/27/2024 Date medication was last filled: 07/04, 07/08 Date medication is due for refill: 08/02, 08/06 Pharmacy: [facility] [address] [place] [address] Is this request for a controlled substance? Yes and Urine Drug Screen Not completed Toxicology results: No results found for this or any previous visit. Please approve if appropriate. Thank you, Medina Mazariegos, PharmD Clinical Pharmacist [facility] 08/08/24 4:40 PM [phone] * Telephone Encounter - Andre Booker, equal opportunity officer - 08/08/2024 3:52 PM EDT Pt is calling for a status check. He is asking for high priority. Thank you, Cliff Booker, Scarf And Anneal Operator Scrap Drop Crane Operator 1 [facility] ([facility]) (Formerly Telepharmacy) 08/08/2024,3:53 PM * Telephone Encounter - Sophie Corcoran CPhT - 08/08/2024 12:50 PM EDT Did you pend patient's preferred pharmacy and medication before forwarding?yes Pharmacy: [facility] [address] [place] [address] Pending Prescriptions: Disp Refills HYDROcodone-Acetaminophen 7.5-325 MG Oral*120 Ta*0 Sig: Take [...] appointment Last date the medication was ordered: 07/08/24, 07/04/24 Is this request for a controlled substance?Yes, What was the last refill date 07/08/24, 07/04/24 w/ quantity 120 and dosage 7.5-325, 5 and Urine Drug Screen Not completed Urine Drug Screen:No results found for this or any previous visit. Patient Phone Numbers Labs: Lab Results Component Value Date/Time CREAT 0.6 08/02/2024 08:41 AM POTASSIUM 3.4 (L) 08/02/2024 08:41 AM LDL 91 12/01/2023 08:46 AM LDL 127 04/22/2023 01:20 PM ALT 12 08/02/2024 08:41 AM HGBA1C 6.0 (A) 04/17/2023 12:00 AM documented in this encounter Plan of Treatment Upcoming Encounters Date Type Department Care Team (Late st Contact Info) Description 08/09/2024 1:45 PM EDT Pharmacy Pharmacy Hematology Oncology [facility] [place] [address] [place] [address] Gm, [facility] Clinic Hem/Onc [address] [place] [address] 10/27/2024 7:40 AM EST [facility] [address] [facility] [place] [address] Evelyne Franco III, MD [address] [facility] [place] [address] Health Maintenance Due Date Last Done Comments [...] this encounter Medical Devices Implanted Type Area Insulation Power Unit Tender Device Identifier Shelf Expiration Date Model / Serial / Lot Port Implant W/8f Poly Cath - [id number] Implanted:Qty : 1 on 05/06/2023 by Leonardo Castro, DO at OR [facility] Right: Chest CR BARD : PERIPHERAL VASCULAR [id number] 07/16/2024 [id number] / / [id number] documented as of this encounter Visit Diagnoses Diagnosis Malignant neoplasm of sigmoid colon (HCC) Malignant neoplasm of sigmoid colon documented in this encounter Care Teams Engineering Clerk Relationship Specialty Start Date End Date Evelyne Franco III, MD [address] [facility] [place] [address] PCP - General Family Medicine 04/29/23 documented as of this encounter
--- OUTSIDE RECORDS SUMMARY | 2024-10-25 01:02 | External Medical Summary | Summary of Care ---
Author Name Unknown Organization [facility] Address [address] [place] [address] Phone [phone] Care Team Providers Care Surgical Instruments Inspector Name Role Phone Amanda BROWN MD, Buddy Britton Primary Care Provider [phone] Reason for Referral * Evaluate & Treat - Unlimited Visits (Within 10 days (routine)) - Authorized Specialty Diagnoses / Procedures Referred By Contkim t Referred To Contact Pharmacist / Pharmacy Diagnoses Malignant neoplasm of sigmoid colon (HCC) Soto Camejo, [facility] [address] [place] [address] Referral ID Status Reason Start Date Expiration Date Visits Requested Visits Authorized [id number] Authorized Specialty Services Required 08/04/2024 99 99 Question Answer Referral Priority Within 10 days (routine) Where should this appointment be scheduled? [facility] Referring Provider Role: Specialist Specialty: Heme/Onc Reason for Referral: Oral Chemo Has consent been obtained for new oral chemo agent(s)? Yes Comments ORAL CHEMOTHERAPY [facility] MONITORING REFERRAL This patient is being referred to the Oral Chemotherapy Clinic for medication co-management. The planned duration of treatment is: Until disease progression/toxicity Please start oral chemotherapy: Once therapy has arrived from specialty pharmacy Oral Chemotherapy Monitoring will continue until one of the following discharge criteria has been met. The provider will be informed if any of these occur. 1. Disease progression. 2. Patient non-compliance 3. Compliance and tolerating treatment well without major toxicities with routine provider follow up. 4. Completion of therapy. Additional Comments: N/A By my signature, I understand that my patient will have their medication therapy managed by the [facility] Medication Therapy Disease Management Clinic ([facility]) per established policies, procedures, and protocols. I also certify that this referral may serve as an initiation of service for the management of drug therapy in the above noted patient. [facility] providers will be responsible for scheduling patient visits, obtaining appropriate laboratory studies, and adjusting medication management therapy per patient's need, in addition to those roles spelled out in the clinic policy, procedures, and drug management protocols. I understand that the service provided by the [facility] is voluntary and have informed patient that they can refuse the service at their discretion. I am aware that the [facility] Clinic will provide me with a copy of the patient encounter via my [employer]. I authorize the [facility] to carry out these activities on my behalf. I consider this program to be a necessary part of the patient's medical care. Encounter Details Date Type Department Care Team (Late st Contact Info) Description 08/03/2024 Orders Only Hematology/Oncology Robin Gillespie [place] [address] [facility] [place] [phone] Yanet Berg MD [address] [place] [address] Malignant neoplasm of sigmoid colon (HCC)* Allergies No known active allergiesdocumented as of this encounter (statuses as of 08/04/2024) Medications Medication Sig Dispensed Refills Start Date End Date Status Dicyclomine HCl 10 MG Oral Capsule (Bentyl) Take 1 Capsule by mouth 4 times a day as needed for Pain. For abdominal pain 8 Capsule 11 08/07/2023 Active Additional Information Patient not taking.Reported on 03/02/2024 metroNIDAZOLE 500 MG Oral Tablet (Flagyl) Take 1 Tablet by mouth 2 times a day with morning and evening meals. Active Atenolol 50 MG Oral Tablet (Tenormin) Take 1 Tablet by mouth in the morning. 90 Tablet 3 11/25/2023 Active Additional Information Patient not taking.Reported on 07/28/2024 Polyethylene Glycol 3350 17 GM/SCOOP Oral Powder (Miralax) Take 17 g by mouth in the morning. 255 g 6 11/25/2023 Active Sennosides 8.6 MG Oral Tablet (Senokot) Take 1 Tablet by mouth in the morning and 1 Tablet before bedtime. 60 Tablet 6 11/25/2023 Active Fluticasone Propionate 50 MCG/ACT Nasal Suspension (Flonase) Administer 2 Sprays into each nostril in the morning. [place] hand to apply. 16 g 3 11/25/2023 Active Additional Information Patient not taking.Reported on 03/02/2024 Ondansetron HCl 8 MG Oral Tablet (Zofran)Indication s:Malignant neoplasm of sigmoid colon (HCC) Take 1 Tablet by mouth every 8 hours as needed for Nausea. 30 Tablet 2 05/10/2024 Active Clindamycin Phosphate 1 % External SolutionIndication s:Acneiform [...] for Pain, Severe. 120 Tablet 07/04/2024 Active HYDROcodone-Acetam inophen 7.5-325 MG Oral TabletIndications: Malignant neoplasm of sigmoid colon (HCC) Take 1 Tablet by mouth every 6 hours as needed for Pain, Severe. 120 Tablet 07/08/2024 Active Potassium Chloride ER 10 MEQ Oral Tablet Extended ReleaseIndications :Metastatic colon cancer to liver (HCC) Take 1 Tablet by mouth in the morning. 30 Tablet 08/03/2024 Active Trifluridine-Tipir acil 15-6.14 MG Oral Tablet (Lonsurf)Indicatio ns:Malignant neoplasm of sigmoid colon (HCC) Take 30 mg by mouth in the morning and 30 mg before bedtime. Take within 1 hour of meal. On days 1-5 and 8- of 28 day cycle.. 40 Tablet 5 08/04/2024 Active Trifluridine-Tipir acil 20-8.19 MG Oral Tablet (Lonsurf)Indicatio ns:Malignant neoplasm of sigmoid colon (HCC) Take 40 mg by mouth in the morning and 40 mg before bedtime. Take within 1 hour of meal. On days 1-5 and 8-12 of 28 day cycle.. 40 Tablet 08/04/2024 Active documented as of this encounter (statuses as of 08/04/2024) Active Problems Problem Noted Date Diagnosed Date Encounter for antineoplastic chemotherapy 2023 Metastatic colon cancer to liver 11/25/2023 Protein-calorie malnutrition 08/07/2023 Malignant neoplasm of sigmoid colon 04/22/2023 Encounter for antineoplastic chemotherapy 2022 documented as of this encounter (statuses as of 08/04/2024) Immunizations Name Administration Dates Next Due Pneumococcal [...] as of this encounter Miscellaneous Notes * Addendum Note - Soto Camejo RPh - 08/04/2024 3:16 PM EDTAddended by: SOTO CAMEJO on: 08/04/2024 03:16 PM Modules accepted: Orders documented in this encounter Plan of Treatment Upcoming Encounters Date Type Department Care Team (Late st Contact Info) Description 08/08/2024 1:30 PM EDT Pharmacy Pharmacy Hematology Oncology [facility] [place] [address] [place] [address] [facility] Hem[facility]Onc [address] [place] [address] 10/27/2024 7:40 AM EST [facility] [place] [address] [facility] [place] [address] Buddy Patel III, MD [address] [facility] [place] [address] Scheduled Orders Name Type Priority Associated Diagnoses Orde r Schedule CBC WITH WBC DIFFERENTIAL Lab STAT Malignant neoplasm of sigmoid colon (HCC) Other, Please specify in Comments field for 12 Occurrences starting 08/04/2024 until 08/04/2025 Scheduled Referrals Name Type Priority Associated Diagnoses [...] this encounter Medical Devices Implanted Type Area Roll Cleaner Device Identifier Shelf Expiration Date Model / Serial / Lot Port Implant W/8f Poly Cath - [id number] Implanted:Qty : 1 on 05/06/2023 by Leonardo Castro DO at OR [facility] Right: Chest CR BARD : PERIPHERAL VASCULAR [id number] 07/16/2024 [id number] / / [id number] documented as of this encounter Visit Diagnoses Diagnosis Malignant neoplasm of sigmoid colon (HCC)- Primary Malignant neoplasm of sigmoid colon documented in this encounter Care Teams Surgical Instruments Inspector Relationship Specialty Start Date End Date Buddy Patel III, MD [address] [place] [address] PCP - General Family Medicine 04/29/23 documented as of this encounter
--- OUTSIDE RECORDS SUMMARY | 2024-10-25 01:02 | External Medical Summary | Summary of Care ---
Author Name Unknown Organization [facility] Address [address] [place] [address] Phone [phone] Care Team Providers Care Telesales Professional Name Role Phone Amanda BROWN MD, Buddy Britton Primary Care Provider [phone] Reason for Visit * Reason Onset Date Comments FYI 08/04/2024 Encounter Details Date Type Department Care Team (Late st Contact Info) Description 08/04/2024 Telephone Family Practice [facility] [address] [facility] [place] [address] Buddy Patel III, MD [address] [place] [address] FYI Allergies No known active allergiesdocumented as of [...] Sprays into each nostril in the morning. [place] hand to apply. 16 g 3 11/25/2023 [...] 8-12 of 28 day cycle.. 40 Tablet 5 08/04/2024 Active documented as [...] encounter Miscellaneous Notes * Telephone Encounter - Jia Mays CPhT - 08/04/2024 3:42 PM EDT Pharmacist advise of patient last and next office visit date Thank you, Jia Mays Street Car Inspector II [facility] ([facility] (formerly Telepharmacy) 08/04/2024 3:42 PM documented in this encounter Plan of Treatment Upcoming Encounters Date Type Department Care Team (Reina khoury Contact Info) Description 08/09/2024 1:45 PM EDT Pharmacy Pharmacy Hematology Oncology [facility] [place] [address] [place] [address] [facility], [facility] Hem/Onc [address] [place] [address] 10/27/2024 7:40 AM EST Office Visit Family Practice Robin Gillespie [place] [address] [facility] [place] [address] Buddy Patel III, MD [address] [facility] [place] [address] Health Maintenance Due Date Last Done Comments [...] this encounter Medical Devices Implanted Type Area Slip Cover Operator Device Identifier Shelf Expiration Date Model / Serial / Lot Port Implant W/8f Poly Cath - [id number] Implanted:Qty : 1 on 05/06/2023 by Leonardo Castro DO at OR [facility] Right: Chest CR BARD : PERIPHERAL VASCULAR [id number] 07/16/2024 [id number] / / [id number] documented as of this encounter Care Teams Telesales Professional Relationship Specialty Start Date End Date Buddy Patel III, MD [address] [facility] [place] [address] PCP - General Family Medicine 04/29/23 documented as of this encounter
--- OUTSIDE RECORDS SUMMARY | 2024-10-25 01:02 | External Medical Summary | Summary of Care ---
Author Name Unknown Organization [facility] Address [address] [place] [address] Phone [phone] Care Team Providers Care Area Director Of Home Health Sales Name Role Phone Amanda BROWN MD, Buddy Britton Primary Care Provider [phone] Reason for Visit * Reason Onset Date Comments Precert Future 08/03/2024 dyan Nieves Encounter Details Date Type Department Care Team (Late st Contact Info) Description 08/03/2024 Telephone Hematology/Oncology Treatment, [place] [address] [place] [address] Yanet Berg MD [address] [place] [address] Precert Future (dyan Nieves) Allergies No known active allergiesdocumented as of this encounter (statuses as of 08/05/2024) Medications Medication Sig Dispensed Refills Start Date [...] Sprays into each nostril in the morning. [place] hand to apply. 16 g 3 11/25/2023 [...] in the morning. 30 Tablet 08/03/2024 Active documented as of this encounter (statuses as of 08/05/2024) Active Problems Problem Noted Date Diagnosed Date Encounter for antineoplastic chemotherapy 2023 Metastatic colon cancer to liver 11/25/2023 Protein-calorie malnutrition 08/07/2023 Malignant neoplasm of sigmoid colon 04/22/2023 Encounter for antineoplastic chemotherapy 2022 documented as of this encounter (statuses as of 08/05/2024) Immunizations Name Administration Dates Next Due Pneumococcal [...] encounter Miscellaneous Notes * Telephone Encounter - Nicholas Anders RN - 08/05/2024 11:28 AM EDT Referrals entered for both Zirabev and LONSURF. Assistance aware of copay for LONSURF, script submitted to [facility] to look into assistance. Per discussion- will [...] EDT Order received for lonsurf and zirabev. [place] plan adjusted. Waiting for auth. Consent signed 08/03/24. Patient has received zirabev in the past. Will need to follow up for lonsurf education. Hep B labs 04/22/23. MTM: FYI on order. documented in this encounter Plan of Treatment Upcoming Encounters Date Type Department Care Team (Late st Contact Info) Description 08/09/2024 1:45 PM EDT Pharmacy Pharmacy Hematology Oncology [facility] [address] [place] [address] [facility] [place], [facility] Hem/Onc [address] [place] [address] 10/27/2024 7:40 AM EST Office Visit Family [facility] [place] [address] [facility] [place] [address] Buddy Patel III, MD [address] [facility] [place] [address] Scheduled Orders Name Type Priority Associated Diagnoses [...] this encounter Medical Devices Implanted Type Area Biological Technician Device Identifier Shelf Expiration Date Model / Serial / Lot Port Implant W/8f Poly Cath - [id number] Implanted:Qty : 1 on 05/06/2023 by Leonardo Castro DO at OR [facility] Right: Chest CR BARD : PERIPHERAL VASCULAR [id number] 07/16/2024 [id number] / / [id number] documented as of this encounter Visit Diagnoses Diagnosis Metastatic colon cancer to liver (HCC)- Primary Malignant neoplasm of colon, unspecified site Malignant neoplasm of sigmoid colon (HCC) Malignant neoplasm of sigmoid colon documented in this encounter Care Teams Area Director Of Home Health Sales Relationship Specialty Start Date End Date Buddy Patel III, MD [address] [place] [address] PCP - General Family Medicine 04/29/23 documented as of this encounter
--- OUTSIDE RECORDS SUMMARY | 2024-10-25 01:02 | External Medical Summary | Summary of Care ---
Author Name Unknown Organization [facility] Address [address] [place] [address] Phone [phone] Care Team Providers Care Hazardous Materials Analyst Name Role Phone Amanda BROWN MD, Buddy Britton Primary Care Provider [phone] Reason for Visit * Reason Onset Date Comments Precert Future 08/03/2024 dyan Nieves Encounter Details Date Type Department Care Team (Late st Contact Info) Description 08/03/2024 Telephone Hematology/Oncology Treatment, [place] [address] [place] [address] Yanet Berg MD [address] [place] [address] Precert Future (dyan Nieves) Allergies No known [...] Sprays into each nostril in the morning. [place] hand to apply. 16 g 3 11/25/2023 [...] EDT Order received for lonsurf and zirabev. [place] plan adjusted. Waiting for auth. Consent signed 08/03/24. Patient has received zirabev in the past. Will need to follow up for lonsurf education. Hep B labs 04/22/23. MTM: FYI on order. documented in this encounter Plan of Treatment Upcoming Encounters Date Type Department Care Team (Late st Contact Info) Description 08/08/2024 1:30 PM EDT Pharmacy Pharmacy Hematology Oncology [address] [address] [address]m, [facility] Hem/Onc [address] [place] [address] 10/27/2024 7:40 AM EST Office Visit [facility] [address] [place] [address] Buddy Patel III, MD [address] [place] [address] Scheduled Orders Name Type Priority Associated Diagnoses [...] this encounter Medical Devices Implanted Type Area Curriculum Assistant Principal Device Identifier Shelf Expiration Date Model / Serial / Lot Port Implant W/8f Poly Cath - [id number] Implanted:Qty : 1 on 05/06/2023 by Leonardo Castro DO at OR [facility] Right: Chest CR BARD : PERIPHERAL VASCULAR [id number] 07/16/2024 [id number] / / [id number] documented as of this encounter Visit Diagnoses Diagnosis Metastatic colon cancer to liver (HCC)- Primary Malignant neoplasm of colon, unspecified site Malignant neoplasm of sigmoid colon (HCC) Malignant neoplasm of sigmoid colon documented in this encounter Care Teams Hazardous Materials Analyst Relationship Specialty Start Date End Date Buddy Patel III, MD [address] [place] [address] PCP - General Family Medicine 04/29/23 documented as of this encounter
--- OUTSIDE RECORDS SUMMARY | 2024-10-25 01:02 | External Medical Summary | Summary of Care ---
Author Name Unknown Organization [facility] Address [address] [place] [address] Phone [phone] Care Team Providers Care Lime Hide Inspector Name Role Phone Amanda BROWN MD, Buddy Britton Primary Care Provider [phone] Reason for Visit * Reason Comments Medication Management Encounter Details Date Type Department Care Team (Late st Contact Info) Description 08/04/2024 1:15 PM EDT Pharmacy Pharmacy Hematology Oncology [facility] [address], [place] [id number] [place], [facility] Hem/Onc [address] [place], [place] [id number] Malignant neoplasm of sigmoid colon (HCC)* Allergies [...] Sprays into each nostril in the morning. [place] hand to apply. 16 g 3 11/25/2023 [...] days 1-5 and - of 28 day cycle.. 40 Tablet 5 08/04/2024 Active Trifluridine-Tipira cil [...] of this encounter Progress Notes * Carisa Davidson, nuclear medicine technician - 08/05/2024 8:43 AM EDT NEW REFERRAL TO ORAL CHEMO CLINIC/MEDICATION RECONCILIATION NOTE Mendez Costa [id number] Patient Phone Numbers Preferred Contact: Mirijuan Bautista [phone] Communication: Spoke to: Other: Sister, Miri Bautista Treatment: Medication: Trifluridine/Tipiracil (Lonsurf) Indication/Staging/Diagnosis Code: met colon cancer / C18.7 Dose Basis: 35mg/m2 (BSA 2m2) Dose: 70mg BID D1-5 and 8-12 every 28 days Administration: with food Start Date: TBD Primary Bonding Machine Operator/Oncologist: Dr. Berg Provider has consented patient: Yes Patient was introduced to Oral Chemotherapy Clinic: OCC is a free service for patients receiving oral chemo therapy. We are Pharmacists & Pharmacy Technicians, who are a part of hematology & oncology care across the [facility] system offering telephone based appointments from the comfort of your own home. Pharmacists are available Thursday-Thursday from 8am - 4:30pm. After 4:30pm, non- urgent messages can be left on the pharmacist voicemail, and urgent calls/questions/concerns should be directed to their oncologist office directly (number provided). In case of an emergency, patient is awareto call 911 or travel to nearest emergency department. Communicated to patient: Pharmacists will provide education about your medication, manage oral chemotherapy side effects & review labs. All information will be shared & available to your oncologist. Explained to patient: once they decide on a treatment with their Oncologist, a Pharmacist will review the treatment plan to ensure correct dosing, review labs & medications to prevent any interactions. Medication authorization is submitted to your insurance. Once approved, your Rx will be sent to the Pharmacy determined by your insurance plan. Specialty Pharmacy will contact you to arrange delivery & discuss co-payment and any assistance options, if required. A Pharmacist will contact you to provide medication education, follow up periodically to review lab results & to assess/manage side effects. Patient was reassured the process to obtain medication can take several days-weeks. Approved - GSP $2,448.69. Patient has been referred for assistance. Sent a TE to [facility] requesting they reach out to Sister Thiago Bautista. Patient was informed that hepatitis B screening must be completed prior to initiation of treatment.- completed Patient has given verbal consent that staff from the Oral Chemotherapy Clinic can speak to Other: Sister Miri Michele [phone] regarding their treatment Patient has given verbal consent that staff from the Oral Chemotherapy Clinic can leave a voicemailwith treatment-related information: Yes This information can be left on Cell Performed medication reconciliation with patient; pharmacist will be in touch if there are any druginteractions with oral chemo. Patient voiced understanding on all accounts. Of note, please contact Sister Thiago Bautista on Patient's behalf. Carisa Davidson, Crowdnetic Cable Ferry Operator Hematology Oncology Oral Chemotherapy Clinic Medication Therapy Disease Management [facility] 08/05/24,9:10 AM Time Spent on Encounter: 16 - 20 minutes Encounter Group: Oncology Encounter Interventions Item Category: Oral Chemotherapy Trifluridine/Tipricil * Carisa Arceo [facility] - 08/04/2024 3:16 PM EDT Lonsurf RX sent to [facility] where [facility] will help with financial assistance MTM to follow up in 3 days for additional med rec attempt (advised to contact pt's sister) and financial assistance status Carisa Arceo, PharmKunal, BCOP Clinical Pharmacist, [facility] Oral Chemotherapy [facility] 08/04/2024, 3:18 PM Time Spent on Encounter: 6 - 10 minutes Encounter Group: Oncology Encounter Interventions Item Category: Oral Chemotherapy Trifluridine/Tipricil Problem/Rationale: [place] Plan Review: Clinical Review Pharmacist Intervention(s): Medication prescribed Magnitude of Intervention: Modification of medication for asymtomatic patients (Level 2) * Carisa Davidson, nuclear medicine technician - 08/04/2024 1:59 PM EDT MEDICATION THERAPY MANAGEMENT TRIFLURIDINE/TIPIRACIL TREATMENT STATUS NOTE Mendez Igor [id number] Patient Phone Numbers [employer]act Public Safety [phone] Communication: Chart review Treatment: Medication: Trifluridine/Tipiracil (Lonsurf) Indication/Staging/Diagnosis Code: met colon cancer / C18.7 Dose Basis: 35mg/m2 (BSA 2m2) Dose: 70mg BID D1-5 and 8-12 every 28 days Administration: with food Start Date: TBD Primary Bonding Machine Operator/Oncologist: Dr. Berg Assessment and plan: Yes/no Date Action Taken [place] plan entered? Yes 08/03/24 Consent completed? Yes 08/03/24 Intro/med rec completed? No 08/04/24 LVM Precert completed? Yes 08/03/24 Approved Test claim completed? Yes 08/04/24 GSP - $2448.69 Financial assistance needed? Yes 08/04/24 Referred to [facility] for review Physician signature? Yes 08/04/24 Rx released? Education completed? Will follow up in 3 days to follow up on Patient assistance. [facility] will contact patient once med shipped/received to complete medication education Please refer to initial intake note for detailed review of regimen and patient- specific education points. SORAYA Coffman Cable Ferry Operator Hematology Oncology Oral Chemotherapy Clinic Medication Therapy Disease Management [facility] 08/04/24,2:05 PM Time Spent on Encounter: < 5 minutes Encounter Group: Oncology Encounter Interventions Item Category: Oral Chemotherapy Trifluridine/Tipricil * Carisa Davidson PHARM Tech - 08/04/2024 1:55 PM EDT NEW REFERRAL TO ORAL CHEMO CLINIC/MEDICATION RECONCILIATION NOTE Mendez Costa [id number] Patient Phone Numbers Communication: Left message Treatment: Medication: Trifluridine/Tipiracil (Lonsurf) Indication/Staging/Diagnosis Code: met colon cancer / C18.7 Dose Basis: 35mg/m2 (BSA 2m2) Dose: 70mg BID D1-5 and 8-12 every 28 days Administration: with food Start Date: TBD Primary Bonding Machine Operator/Oncologist: Dr. Berg Provider has consented patient: Yes Attempted to call Patient and provide Introduction to Oral Chemotherapy Clinic and complete medication reconciliation.Left a voicemail requesting Patient return my call at earliest convenience. SORAYA Coffman Cable Ferry Operator Hematology Oncology Oral Chemotherapy Clinic Medication Therapy Disease Management [facility] 08/04/24,2:03 PM Time Spent on Encounter: < 5 minutes documented in this encounter Plan of Treatment Upcoming Encounters Date Type Department Care Team (Late st Contact Info) Description 08/09/2024 1:45 PM EDT Pharmacy Pharmacy Hematology Oncology [address] [address] [place], [facility] Hem/Onc [address] [place] [address] 10/27/2024 7:40 AM EST Office Visit Family Practice [facility] Verna Pelzer [address] [place] [address] Buddy Patel III, MD [address] [place] [place] [address] Health Maintenance Due Date Last Done Comments [...] encounter Medical Devices Implanted Type Area Public Relations Writer Device Identifier Shelf Expiration Date Model / Serial / Lot Port Implant W/8f Poly Cath - [id number] Implanted:Qty : 1 on 05/06/2023 by Leonardo Castro, DO at OR [facility] Right: Chest CR BARD : PERIPHERAL VASCULAR [id number] 07/16/2024 [id number] / / [id number] documented as of this encounter Visit Diagnoses Diagnosis Malignant neoplasm of sigmoid colon (HCC)- Primary Malignant neoplasm of sigmoid colon documented in this encounter Care Teams Lime Hide Inspector Relationship Specialty Start Date End Date Buddy Patel III, MD [address] [place] [address] PCP - General Family Medicine 04/29/23 documented as of this encounter
--- OUTSIDE RECORDS SUMMARY | 2024-10-25 01:02 | External Medical Summary | Summary of Care ---
Author Name Unknown Organization [facility] Address [address] [place] [address] Phone [phone] Care Team Providers Care Director Of Marketing Communications Name Role Phone Amanda BROWN MD, Buddy Britton Primary Care Provider [phone] Reason for Visit * Reason Onset Date Comments Precert Future 08/03/2024 dyan Nieves Encounter Details Date Type Department Care Team (Late st Contact Info) Description 08/03/2024 Telephone Hematology/Oncology Treatment, [place] [address] [place] [address] Yanet Berg MD [address] [place] [address] Precert Future (dyan Nieves) Allergies No known [...] Sprays into each nostril in the morning. [place] hand to apply. 16 g 3 [...] EDT Order received for lonsurf and zirabev. [place] plan adjusted. Waiting for auth. Consent signed 08/03/24. Patient has received zirabev in the past. Will need to follow up for lonsurf education. Hep B labs 04/22/23. MTM: FYI on order. documented in this encounter Plan of Treatment Upcoming Encounters Date Type Department Care Team (Late st Contact Info) Description 08/04/2024 1:15 PM EDT Pharmacy Pharmacy Hematology Oncology [address] [address] [facility] Hem/Onc [address] [place] [address] 08/08/2024 1:30 PM EDT Pharmacy Pharmacy Hematology Oncology [facility] [address] [place] [address] [facility] Hem/Onc [address] [place] [address] 10/27/2024 7:40 AM EST Office Visit Family Practice [facility] [place] [address] [facility] [place] [address] Buddy Patel III, MD [address] [facility] [place] [address] Scheduled Orders Name Type Priority Associated Diagnoses [...] this encounter Medical Devices Implanted Type Area Lead Accountant Device Identifier Shelf Expiration Date Model / Serial / Lot Port Implant W/8f Poly Cath - [id number] Implanted:Qty : 1 on 05/06/2023 by Leonardo Castro DO at OR [facility] Right: Chest CR BARD : PERIPHERAL VASCULAR [id number] 07/16/2024 [id number] / / [id number] documented as of this encounter Visit Diagnoses Diagnosis Metastatic colon cancer to liver (HCC)- Primary Malignant neoplasm of colon, unspecified site Malignant neoplasm of sigmoid colon (HCC) Malignant neoplasm of sigmoid colon documented in this encounter Care Teams Director Of Marketing Communications Relationship Specialty Start Date End Date Buddy Patel III, MD [address] [place] [address] PCP - General Family Medicine 04/29/23 documented as of this encounter
--- OUTSIDE RECORDS SUMMARY | 2024-10-25 01:02 | External Medical Summary | Summary of Care ---
Author Name Unknown Organization [facility] [address] [place] [address] Phone [phone] Care Team Providers Care Fax Machine Operator Name Role Phone Amanda BROWN MD, Buddy Britton Primary Care Provider [phone] Encounter Details Date Type Department Care Team (Late st Contact Info) Description 08/05/2024 Telephone Hematology/Oncology, [facility] [address] [place] [address] Yanet Berg MD [address] [place] [address] Allergies No known active allergiesdocumented as of [...] Sprays into each nostril in the morning. [place] hand to apply. 16 g 3 11/25/2023 [...] Notes * Telephone Encounter - Carisa Davidson, sales enablement specialist - 08/05/2024 9:02 AM EDT Please reach out to Sister, Miri Bautista [phone]. She will gather Patient's financial information for review. Treatment: Medication: Trifluridine/Tipiracil (Lonsurf) Indication/Staging/Diagnosis Code: met colon cancer / C18.7 Dose Basis: 35mg/m2 (BSA 2m2) Dose: 70mg BID D1-5 and 8-12 every 28 days Administration: with food Start Date: TBD Primary Pullman Clerk/Oncologist: Dr. Berg Approved - GSP $2,448.69. Patient has been referred for assistance. SORAYA Coffman Lamp Assembler Hematology Oncology Oral Chemotherapy Clinic Medication Therapy Disease Management [facility] 08/05/24,9:06 AM Time Spent on Encounter: 6 - 10 minutes documented in this encounter Plan of Treatment Upcoming Encounters Date Type Department Care Team (Late st Contact Info) Description 08/09/2024 1:45 PM EDT Pharmacy Pharmacy Hematology Oncology [facility] [address] [place] [address] [facility] Hem[facility]Onc [address] [place] [address] 10/27/2024 7:40 AM EST Office Visit [facility] [address] [place] [address] [place] IIIBuddy MD [address] [place] [address] Health Maintenance Due Date Last Done Comments [...] this encounter Medical Devices Implanted Type Area Optical Instrument Assembler Device Identifier Shelf Expiration Date Model / Serial / Lot Port Implant W/8f Poly Cath - [id number] Implanted:Qty : 1 on 05/06/2023 by Leonardo Castro, at OR [facility] Right: Chest CR BARD : PERIPHERAL VASCULAR [id number] 07/16/2024 [id number] / / [id number] documented as of this encounter Care Teams Fax Machine Operator Relationship Specialty Start Date End Date [place] IIIBuddy MD [address] [place] [address] PCP - General Family Medicine 04/29/23 documented as of this encounter
--- OUTSIDE RECORDS SUMMARY | 2024-10-25 01:02 | External Medical Summary | Summary of Care ---
Author Name Unknown Organization [facility] Address [address] [place] [address] Phone [phone] Care Team Providers Care Stunt Person Name Role Phone Amanda BROWN MD, Buddy Britton Primary Care Provider [phone] Reason for Visit * Reason Comments Medication Management Encounter Details Date Type Department Care Team (Late st Contact Info) Description 08/04/2024 1:15 PM EDT Pharmacy Pharmacy Hematology Oncology [facility] [address] [place] [address] [facility] Hem[facility]Onc [address] [place], [place] [phone] Malignant neoplasm of sigmoid colon (HCC)* Allergies [...] Sprays into each nostril in the morning. [place] hand to apply. 16 g 3 11/25/2023 [...] this encounter Progress Notes * Carisa Arceo, [facility] - 08/04/2024 3:16 PM EDT Lonsurf RX sent to [facility] where [facility] will help with financial assistance MTM to follow up in 3 days for additional med rec attempt (advised to contact pt's sister) and financial assistance status Carisa Arceo, PharmD, BCOP Clinical Pharmacist, [facility] Oral Chemotherapy [facility] 08/04/2024, 3:18 PM Time Spent on Encounter: 6 - 10 minutes Encounter Group: Oncology Encounter Interventions Item Category: Oral Chemotherapy Trifluridine/Tipricil Problem/Rationale: [place] Plan Review: Clinical Review Pharmacist Intervention(s): Medication prescribed Magnitude of Intervention: Modification of medication for asymtomatic patients (Level 2) * Carisa Davidson event services manager - 08/04/2024 1:59 PM EDT MEDICATION THERAPY MANAGEMENT TRIFLURIDINE/TIPIRACIL TREATMENT STATUS NOTE Mendez Costa [id number] Patient Phone Numbers Communication: Chart review Treatment: Medication: Trifluridine/Tipiracil (Lonsurf) Indication/Staging/Diagnosis Code: met colon cancer / C18.7 Dose Basis: 35mg/m2 (BSA 2m2) Dose: 70mg BID D1-5 and 8-12 every 28 days Administration: with food Start Date: Primary Milk Wagon Driver/Oncologist: Dr. Berg Assessment and plan: Yes/no Date Action Taken [place] plan entered? Yes 08/03/24 Consent completed? Yes 08/03/24 Intro/med rec completed? No 08/04/24 LVM Precert completed? Yes 08/03/24 Approved Test claim completed? Yes 08/04/24 GSP - $2448.69 Financial assistance needed? Yes 08/04/24 Referred to [facility] for review Physician signature? Yes 08/04/24 Rx released? Education completed? Will follow up in 3 days to follow up on Patient assistance. [facility] will contact patient once med shipped/received to complete medication education Please refer to initial intake note for detailed review of regimen and patient- specific education points. Carisa Davidson event services manager Javascript Front End Developer Hematology Oncology Oral Chemotherapy Clinic Medication Therapy Disease Management [facility] 08/04/24,2:05 PM Time Spent on Encounter: < 5 minutes Encounter Group: Oncology Encounter Interventions Item Category: Oral Chemotherapy Trifluridine/Tipricil * Carisa Davidson event services manager - 08/04/2024 1:55 PM EDT NEW REFERRAL TO ORAL CHEMO CLINIC/MEDICATION RECONCILIATION NOTE Mendez Costa [id number] Patient Phone Numbers Communication: Left message Treatment: Medication: Trifluridine/Tipiracil (Lonsurf) Indication/Staging/Diagnosis Code: met colon cancer / C18.7 Dose Basis: 35mg/m2 (BSA 2m2) Dose: 70mg BID D1-5 and 8-12 every 28 days Administration: with food Start Date: TBD Primary Milk Wagon Driver/Oncologist: Dr. Berg Provider has consented patient: Yes Attempted to call Patient and provide Introduction to Oral Chemotherapy Clinic and complete medication reconciliation.Left a voicemail requesting Patient return my call at earliest convenience. SORAYA Coffman Tech Javascript Front End Developer Hematology Oncology Oral Chemotherapy Clinic Medication Therapy Disease Management [facility] 08/04/24,2:03 PM Time Spent on Encounter: < 5 minutes documented in this encounter Plan of Treatment Upcoming Encounters Date Type Department Care Team (Late st Contact Info) Description 08/09/2024 1:45 PM EDT Pharmacy Pharmacy Hematology Oncology [facility] [address] [place] [address] [facility] Hem/Onc [address] [place] [address] 10/27/2024 7:40 AM EST Office Visit Family [facility] [place] [address] [address] Buddy Patel III, MD [address] [facility] [place] [address] [address] Health Maintenance Due Date Last Done Comments [...] this encounter Medical Devices Implanted Type Area Continuous Pickling Line Pickler Helper Device Identifier Shelf Expiration Date Model / Serial / Lot Port Implant W/8f Poly Cath - [id number] Implanted:Qty : 1 on 05/06/2023 by Leonardo Castro, at OR [facility] Right: Chest CR BARD : PERIPHERAL VASCULAR [id number] 07/16/2024 [id number] / / [id number] documented as of this encounter Visit Diagnoses Diagnosis Malignant neoplasm of sigmoid colon (HCC)- Primary Malignant neoplasm of sigmoid colon documented in this encounter Care Teams Stunt Person Relationship Specialty Start Date End Date Buddy Patel III, MD [address] [place] [address] PCP - General Family Medicine 04/29/23 documented as of this encounter
--- OUTSIDE RECORDS SUMMARY | 2024-10-25 01:03 | External Medical Summary | Summary of Care ---
Author Name Unknown Organization [facility] Address [address] [place] [address] Phone [phone] Care Team Providers Care Cartoon Designer Name Role Phone Amanda BROWN MD, Buddy Britton Primary Care Provider [phone] Reason for Visit * Reason Onset Date Comments Precert Future 08/03/2024 dyan Nieves Encounter Details Date Type Department Care Team (Late st Contact Info) Description 08/03/2024 Telephone Hematology/Oncology Treatment, [place] [address] [place] [address] Yanet Berg MD [address] [place] [address] Precert Future (dyan Nieves) Allergies No known active allergiesdocumented as of this encounter (statuses as of 08/03/2024) Medications Medication Sig Dispensed Refills Start Date [...] Sprays into each nostril in the morning. [place] hand to apply. 16 g 3 11/25/2023 [...] as of this encounter (statuses as of 08/03/2024) Active Problems Problem Noted Date Diagnosed Date Metastatic colon cancer to liver 11/25/2023 Protein-calorie malnutrition 08/07/2023 Malignant neoplasm of sigmoid colon 04/22/2023 Encounter for antineoplastic chemotherapy 2022 documented as of this encounter (statuses as of 08/03/2024) Immunizations Name Administration Dates Next Due Pneumococcal [...] EDT Order received for lonsurf and zirabev. [place] plan adjusted. Waiting for auth. Consent signed 08/03/24. Patient has received zirabev in the past. Will need to follow up for lonsurf education. Hep B labs 04/22/23. MTM: FYI on order. documented in this encounter Plan of Treatment Upcoming Encounters Date Type Department Care Team (Late st Contact Info) Description 08/03/2024 1:00 PM EDT Pharmacy Pharmacy Hematology Oncology [facility] [address] [place] [address] [facility] Hem/Onc [address] [place] [address] 10/27/2024 7:40 AM EST Office Visit Family Practice [facility] [place] [address] [place] [address] Buddy Portillo III, MD [address] [facility] [place] [address] Scheduled Orders Name Type Priority Associated Diagnoses [...] this encounter Medical Devices Implanted Type Area Beamer Hand Device Identifier Shelf Expiration Date Model / Serial / Lot Port Implant W/8f Poly Cath - [id number] Implanted:Qty : 1 on 05/06/2023 by Leonardo Castro DO at OR [facility] Right: Chest CR BARD : PERIPHERAL VASCULAR [id number] 07/16/2024 [id number] / / [id number] documented as of this encounter Visit Diagnoses Diagnosis Metastatic colon cancer to liver (HCC)- Primary Malignant neoplasm of colon, unspecified site Malignant neoplasm of sigmoid colon (HCC) Malignant neoplasm of sigmoid colon documented in this encounter Care Teams Cartoon Designer Relationship Specialty Start Date End Date Buddy Patel III, MD [address] [facility] [place] [address] PCP - General Family Medicine 04/29/23 documented as of this encounter
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
--- OUTSIDE RECORDS SUMMARY | 2024-10-25 01:03 | External Medical Summary | Summary of Care ---
Author Name Unknown Organization [facility] Address [address] [place] [address] Phone [phone] Care Team Providers Care Regional Sales Manager Name Role Phone Amanda BROWN MD, Buddy Britton Primary Care Provider [phone] Reason for Visit * Reason Onset Date Comments Test Results 08/02/2024 Encounter Details Date Type Department Care Team (Late st Contact Info) Description 08/02/2024 Telephone Hematology/Oncology Treatment, [place] [address] [place] [address] Yanet Berg MD [address] [place] [address] Test Results Allergies No known active allergiesdocumented as of this encounter (statuses as of 08/02/2024) Medications Medication Sig Dispensed Refills Start Date [...] Sprays into each nostril in the morning. [place] hand to apply. 16 g 3 11/25/2023 [...] mouth in the morning. 14 Tablet 07/12/2024 Active documented as of this encounter (statuses as of 08/02/2024) Active Problems Problem Noted Date Diagnosed Date Metastatic colon cancer to liver 11/25/2023 Protein-calorie malnutrition 08/07/2023 Malignant neoplasm of sigmoid colon 04/22/2023 Encounter for antineoplastic chemotherapy 2022 documented as of this encounter (statuses as of 08/02/2024) Immunizations Name Administration Dates Next Due Pneumococcal [...] Telephone Encounter - Candace Bustillos OSA - 08/02/2024 11:49 AM EDT Canceled per note below * Telephone Encounter - Brenda Cantrell RN - 08/02/2024 11:39 AM EDT ANC 1.12. Per Dr Berg, would like to HOLD treatment- patient also progressing so treatment will likely need to be changed. Called Miri, reviewed results. She asked about rescheduling treatment- advised her that Dr Berg will review scan and future plan for treatment when he sees patient tomorrow. She verbalized understanding. Scheduling: please cancel treatment appt tomorrow. Appt with Dr Berg to stay as scheduled. Thanks! documented in this encounter Plan of Treatment Upcoming Encounters Date Type Department Care Team (Late st Contact Info) Description 08/03/2024 9:00 AM EDT Office Visit Hematology/Oncology [facility] [place] [address] [place] [address] Yanet Berg MD 200 [facility] [place] [address] 10/27/2024 7:40 AM EST Office Visit Family Practice [facility] [place] [address] [facility] [place] [address] Buddy Patel III, MD [address] [facility] [place] [address] Health Maintenance Due Date Last Done Comments [...] this encounter Medical Devices Implanted Type Area Square Shear Operator Device Identifier Shelf Expiration Date Model / Serial / Lot Port Implant W/8f Poly Cath - [id number] Implanted:Qty : 1 on 05/06/2023 by Leonardo Castro, at OR [facility] Right: Chest CR BARD : PERIPHERAL VASCULAR [id number] 07/16/2024 [id number] / / [id number] documented as of this encounter Care Teams Regional Sales Manager Relationship Specialty Start Date End Date Buddy Patel III, MD [address] [place] [address] PCP - General Family Medicine 04/29/23 documented as of this encounter
--- OUTSIDE RECORDS SUMMARY | 2024-10-25 01:03 | External Medical Summary | Summary of Care ---
Author Name Unknown Organization [facility] Address [address] [place] [address] Phone [phone] Care Team Providers Care Nursing Resident Name Role Phone Amanda BROWN MD, Buddy Britton Primary Care Provider [phone] Encounter Details Date Type Department Care Team (Late st Contact Info) Description 08/03/2024 Orders Only Hematology/Oncology [facility] [place] [address] [facility] [place] [address] Yanet Berg MD 200 [facility] [place] [address] Allergies No known active allergiesdocumented as of [...] Sprays into each nostril in the morning. [place] hand to apply. 16 g 3 11/25/2023 [...] 1:15 PM EDT Pharmacy Pharmacy Hematology Oncology [facility] [address] [place] [address] [facility] Hem/Onc [address] [place] [address] 08/08/2024 1:30 PM EDT Pharmacy Pharmacy Hematology Oncology [facility] [address] [place] [address] [facility] Hem/Onc [address] [place] [address] 10/27/2024 7:40 AM EST Office Visit Family Practice [facility] [place] [address] [place], [place] [address] Buddy Patel III, MD [address] [place], [place] [address] Health Maintenance Due Date Last Done Comments [...] this encounter Medical Devices Implanted Type Area Pharmacy Intake Coordinator Device Identifier Shelf Expiration Date Model / Serial / Lot Port Implant W/8f Poly Cath - [id number] Implanted:Qty : 1 on 05/06/2023 by Leonardo Castro DO at OR [facility] Right: Chest CR BARD : PERIPHERAL VASCULAR [id number] 07/16/2024 [id number] / / [id number] documented as of this encounter Care Teams Nursing Resident Relationship Specialty Start Date End Date Buddy Patel III, MD [address] [place] [address] PCP - General Family Medicine 04/29/23 documented as of this encounter
--- OUTSIDE RECORDS SUMMARY | 2024-10-25 01:03 | External Medical Summary | Summary of Care ---
Author Name Unknown Organization [facility] Address [address] [place] [address] Phone [phone] Care Team Providers Care Transfusion Aide Name Role Phone Amanda BROWN MD, Buddy Britton Primary Care Provider [phone] Reason for Visit * Reason Comments Medication Management Encounter Details Date Type Department Care Team (Late st Contact Info) Description 08/03/2024 1:00 PM EDT Pharmacy Pharmacy Hematology Oncology [facility] [address] [place] [address] [facility] [place] [facility] Hem/Onc [address] [place], [place] [id number] Malignant neoplasm of sigmoid colon (HCC)* Allergies [...] Sprays into each nostril in the morning. [place] hand to apply. 16 g 3 11/25/2023 [...] this encounter Progress Notes * Carisa Arceo, [facility] - 08/03/2024 1:37 PM EDT MEDICATION THERAPY MANAGEMENT TRIFLURIDINE/TIPIRACIL INITIAL INTAKE NOTE Mendez Costa [phone] Patient Phone Numbers Communication: Chart review Treatment: Medication: Trifluridine/Tipiracil (Lonsurf) Indication/Staging/Diagnosis Code: met colon cancer / C18.7 Dose Basis: 35mg/m2 (BSA 2m2) Dose: 70mg BID D1-5 and 8-12 every 28 days Administration: with food Start Date: TBD Primary Maple Products Maker/Oncologist: Dr. Berg Additional Therapy: Bevacizumab Supportive Care Meds: Ondansetron Prophylactic Meds: None Relevant Chronic Medications: Category Medications Pertinent Notes Antihypertensives Atenolol 50mg daily Per PCP Cycle Dates C1 TBD C2 TBD Review of therapy: Line of therapy: third Previous therapy: FOLFOX FOLFIRI + panutumumab Reviewed dosage prescribed for appropriateness (based on indication, hepatic function,renal function, etc): no changes Dose assessment: 35mg/m2 * 2m2= 70mg Are appropriate supportive care medications prescribed? Yes Are appropriate prophylactic medications prescribed? No, none needed Have baseline labs/tests been obtained? Yes Has hepatitis B screening been completed? Yes Potential drug-drug drug-herbal, drug-food, drug-disease interactions: No The Hematology/Oncology Oral Chemotherapy Clinic will assess medication compliance at each patient encounter Assessment and Plan: Baseline ANC < 1500 - will have pt repeat labs prior to treatment start [place] plan uploaded and sent to Dr. Berg for signature MTM to follow up in 1 day for intro/med rec and 3 days to assess beacon plan signature and auth status Yes/no Date Action Taken [place] plan entered? yes 08/03/24 Consent completed? yes 08/03/24 Intro/med rec completed? Precert completed? Test claim completed? Financial assistance needed? Physician signature? Rx released? Education completed? Follow up: 1 and 3 days Carisa Arceo, PharmD, BCOP Clinical Pharmacist, [facility] Oral Chemotherapy [facility] 08/03/2024, 1:49 PM Monitoring Parameters: Estimated CrCl Serum creatinine: 0.6 mg/dL 08/02/24 0841 Estimated creatinine clearance: 136.2 mL/min Hepatitis panel Latest Reference Range & [...] Latest Reference Range & Units 08/02/24 08:41 WBC 4.00 - 10.80 K/uL 2.70 (L) RBC 4.50 - 5.25 M/uL 3.78 HGB 14.0 - 16.8 g/dL 9.4 (L) HCT 40.0 - 48.4 % 30.8 (L) MCV 82.0 - 99.5 fL 81.5 MCH 27.0 - 34.0 pg 24.9 MCHC 32.0 - 36.0 g/dL 30.5 RDW 11.5 - 15.5 % 18.6 PLT 140 - 400 K/uL 183 MPV SEE REPORT CBC WITH WBC DIFFERENTIAL Rpt ! Absolute Neutrophils 1.80 - 7.70 K/uL 1.12 (L) Latest Reference Range & Units 08/02/24 08:41 Albumin 3.8 - 5.0 g/dL 3.1 (L) AST 10 - 50 U/L 21 ALT 10 - 50 U/L 12 Alkaline Phosphatase 35 - 130 U/L 170 (H) Bilirubin, Total <=1.2 mg/dL 0.6 Time Spent on Encounter: 16 - 20 minutes Encounter Group: Oncology Encounter Interventions Item Category: Oral Chemotherapy Trifluridine/Tipricil Problem/Rationale: Indication: Needs additional medication therapy - Untreated condition, - Synergistic therapy [place] Plan Review: Initial Plan/upload Pharmacist Intervention(s): Drug Interaction Screen, Lab monitoring, and Referral review Magnitude of Intervention: Monitoring with direction (Level 1) documented in this encounter Plan of Treatment Upcoming Encounters Date Type Department Care Team (Late st Contact Info) Description 08/04/2024 1:15 PM EDT Pharmacy Pharmacy Hematology Oncology [place] [address] [place] [address] [facility] [place] [facility] Hem/[place] [facility] [place] [address] 08/08/2024 1:30 PM EDT Pharmacy Pharmacy Hematology Oncology [place] [address] [place] [address] [facility] Hem/Onc [address] [place] [address] 10/27/2024 7:40 AM EST Office Visit Family Practice Robin G[facility] [place] [address] [place] [address] Buddy Patel III, MD [address] [place], [place] [address] Health Maintenance Due Date Last Done Comments [...] this encounter Medical Devices Implanted Type Area Inspector Boiler Device Identifier Shelf Expiration Date Model / Serial / Lot Port Implant W/8f Poly Cath - [id number] Implanted:Qty : 1 on 05/06/2023 by Leonardo Castro DO at OR [facility] Right: Chest CR BARD : PERIPHERAL VASCULAR [id number] 07/16/2024 [id number] / / [id number] documented as of this encounter Visit Diagnoses Diagnosis Malignant neoplasm of sigmoid colon (HCC)- Primary Malignant neoplasm of sigmoid colon documented in this encounter Care Teams Transfusion Aide Relationship Specialty Start Date End Date Buddy Patel III, MD 200 [place] [address] PCP - General Family Medicine 04/29/23 documented as of this encounter
--- OUTSIDE RECORDS SUMMARY | 2024-10-25 01:03 | External Medical Summary | Summary of Care ---
Author Name Unknown Organization [facility] Address [address] [place] [address] Phone [phone] Care Team Providers Care Capital Project Engineer Name Role Phone Amanda BROWN MD, Buddy Britton Primary Care Provider [phone] Encounter Details Date Type Department Care Team (Late st Contact Info) Description 08/03/2024 Orders Only Hematology/Oncology [place] 200 [facility] [place] [address] Yanet Berg MD 200 [facility] [place] [address] Allergies No known active allergiesdocumented as of [...] Sprays into each nostril in the morning. [place] hand to apply. 16 g 3 11/25/2023 [...] 1:00 PM EDT Pharmacy Pharmacy Hematology Oncology [facility] [address] [place] [address] [facility] [facility] Hem/Onc [address] [place] [address] 10/27/2024 7:40 AM EST Office Visit Family Practice [facility] [place] [address] [place] [address] Buddy Patel III, MD [address] [place] [address] Health Maintenance Due Date Last Done Comments [...] this encounter Medical Devices Implanted Type Area Police Officer Crime Prevention Device Identifier Shelf Expiration Date Model / Serial / Lot Port Implant W/8f Poly Cath - [id number] Implanted:Qty : 1 on 05/06/2023 by Leonardo Castro, at OR [facility] Right: Chest CR BARD : PERIPHERAL VASCULAR [id number] 07/16/2024 [id number] / / [id number] documented as of this encounter Care Teams Capital Project Engineer Relationship Specialty Start Date End Date Buddy Patel III, MD 200 [facility] [place] [address] PCP - General Family Medicine 04/29/23 documented as of this encounter
--- OUTSIDE RECORDS SUMMARY | 2024-10-25 01:03 | External Medical Summary | Summary of Care ---
Author Name Unknown Organization [facility] Address [address] [place] [address] Phone [phone] Care Team Providers Care Pole Inspector Name Role Phone Amanda BROWN MD, Buddy Britton Primary Care Provider [phone] Encounter Details Date Type Department Care Team (Late st Contact Info) Description 08/03/2024 Orders Only Hematology/Oncology, [facility] [address] [place] [address] Yanet Berg MD [address] [place] [address] Allergies No known active allergiesdocumented as of [...] into each nostril in the morning. [place] hand to apply. 16 g 3 11/25/2023 [...] 1:15 PM EDT Pharmacy Pharmacy Hematology Oncology [place] [address] [place] [address] [facility] [place], [facility] Hem/Onc [address] [place] [address] 08/08/2024 1:30 PM EDT Pharmacy Pharmacy Hematology Oncology [place] [address] [place] [address] [facility] [place], [facility] Hem/Onc [address] [place] [address] 10/27/2024 7:40 AM EST Office Visit Family Practice [place] [facility] [address] [place] [address] Buddy Patel III, MD [address] [place] [address] Health Maintenance Due Date Last Done Comments [...] this encounter Medical Devices Implanted Type Area Brush Painter Device Identifier Shelf Expiration Date Model / Serial / Lot Port Implant W/8f Poly Cath - [id number] Implanted:Qty : 1 on 05/06/2023 by Leonardo Castro DO at OR [facility] Right: Chest CR BARD : PERIPHERAL VASCULAR [id number] 07/16/2024 [id number] / / [id number] documented as of this encounter Care Teams Pole Inspector Relationship Specialty Start Date End Date Buddy Patel III, MD 200 [facility] [address] PCP - General Family Medicine 04/29/23 documented as of this encounter
--- OUTSIDE RECORDS SUMMARY | 2024-10-25 01:03 | External Medical Summary | Summary of Care ---
Author Name Unknown Organization [facility] Address [address] [place] [address] Phone [phone] Care Team Providers Care Heavy Forging Machine Operator Name Role Phone Amanda BROWN MD, Buddy Britton Primary Care Provider [phone] Encounter Details Date Type Department Care Team (Late st Contact Info) Description 08/03/2024 Orders Only Hematology/Oncology [place] 200 [facility] [place] [place] [address] Yanet Berg MD [address] [facility] [place] [address] Allergies No known active allergiesdocumented as of [...] Sprays into each nostril in the morning. [place] hand to apply. 16 g 3 11/25/2023 [...] 1:00 PM EDT Pharmacy Pharmacy Hematology Oncology [facility] [address] [place] [address] [facility] Hem/Onc [address] [place] [address] 10/27/2024 7:40 AM EST Office Visit Family Practice [facility] [address] [place] [address] Buddy Patel III, MD [address] [place] [address] Health Maintenance Due Date Last Done Comments [...] this encounter Medical Devices Implanted Type Area Arson And Bomb Investigator Device Identifier Shelf Expiration Date Model / Serial / Lot Port Implant W/8f Poly Cath - [id number] Implanted:Qty : 1 on 05/06/2023 by Leonardo Castro, at OR [facility] Right: Chest CR BARD : PERIPHERAL VASCULAR [id number] 07/16/2024 [id number] / / [id number] documented as of this encounter Care Teams Heavy Forging Machine Operator Relationship Specialty Start Date End Date Buddy Patel III, MD [address] [place] [address] PCP - General Family Medicine 04/29/23 documented as of this encounter
--- OUTSIDE RECORDS SUMMARY | 2024-10-25 01:03 | External Medical Summary | Summary of Care ---
Author Name Unknown Organization [facility] Address [address] [place] [address] Phone [phone] Care Team Providers Care Milk Bottling Machine Operator Name Role Phone Amanda BROWN MD, Buddy Britton Primary Care Provider [phone] Reason for Visit * Reason Onset Date Comments Precert Future 08/03/2024 dyan Nieves Encounter Details Date Type Department Care Team (Late st Contact Info) Description 08/03/2024 Telephone Hematology/Oncology Treatment, [place] [address] [place] [address] Yanet Berg MD [address] [place] [address] Precert Future (dyan Nieves) Allergies No known [...] Sprays into each nostril in the morning. [place] hand to apply. 16 g 3 11/25/2023 [...] EDT Order received for lonsurf and zirabev. [place] plan adjusted. Waiting for auth. Consent signed 08/03/24. Patient has received zirabev in the past. Will need to follow up for lonsurf education. Hep B labs 04/22/23. MTM: FYI on order. documented in this encounter Plan of Treatment Upcoming Encounters Date Type Department Care Team (Late st Contact Info) Description 08/04/2024 1:15 PM EDT Pharmacy Pharmacy Hematology Oncology [address] [address] [facility] Clinic Hem/[place] [address] 08/08/2024 1:30 PM EDT Pharmacy Pharmacy Hematology Oncology [address] [address] [facility] Hem[facility] [address] [place] [address] 10/27/2024 7:40 AM EST Office Visit [facility] 200 [facility] [place] [address] Buddy Patel III, MD 200 [facility] [place] [address] Scheduled Orders Name Type Priority Associated Diagnoses [...] this encounter Medical Devices Implanted Type Area Operator Ground Based Air Defence Device Identifier Shelf Expiration Date Model / Serial / Lot Port Implant W/8f Poly Cath - [id number] Implanted:Qty : 1 on 05/06/2023 by Leonardo Castro DO at OR [facility] Right: Chest CR BARD : PERIPHERAL VASCULAR [id number] 07/16/2024 [id number] / / [id number] documented as of this encounter Visit Diagnoses Diagnosis Metastatic colon cancer to liver (HCC)- Primary Malignant neoplasm of colon, unspecified site Malignant neoplasm of sigmoid colon (HCC) Malignant neoplasm of sigmoid colon documented in this encounter Care Teams Milk Bottling Machine Operator Relationship Specialty Start Date End Date Buddy Patel III, MD 200 [facility] [place] [address] PCP - General Family Medicine 04/29/23 documented as of this encounter
--- OUTSIDE RECORDS SUMMARY | 2024-10-25 01:04 | External Medical Summary | Summary of Care ---
Author Name Unknown Organization [facility] Address [address] [place] [address] Phone [phone] Care Team Providers Care Roller Embosser Name Role Phone Amanda BROWN MD, Buddy Britton Primary Care Provider [phone] Reason for Visit * Reason Onset Date Comments Test Results 08/02/2024 Encounter Details Date Type Department Care Team (Late st Contact Info) Description 08/02/2024 Telephone Hematology/Oncology Treatment, [place] [address] [place] [address] Yanet Berg MD 200 [place] [address] Test Results Allergies No known active allergiesdocumented [...] Sprays into each nostril in the morning. [place] hand to apply. 16 g 3 11/25/2023 [...] AM EDT Office Visit Hematology/Oncology Robin Gillespie [place] [address] [place] [address] Yanet Berg MD 200 [facility] [place] [address] 10/27/2024 7:40 AM EST Office Visit Family Practice [facility] [place] 200 [facility] [place] [address] Buddy Patel III, MD 200 [facility] [place] [address] Health Maintenance Due Date Last Done Comments [...] this encounter Medical Devices Implanted Type Area Income Tax Preparer Device Identifier Shelf Expiration Date Model / Serial / Lot Port Implant W/8f Poly Cath - [id number] Implanted:Qty : 1 on 05/06/2023 by Leonardo Castro, at OR [facility] Right: Chest CR BARD : PERIPHERAL VASCULAR [id number] 07/16/2024 [id number] / / [id number] documented as of this encounter Care Teams Roller Embosser Relationship Specialty Start Date End Date Buddy Patel III, MD [address] [place] [address] PCP - General Family Medicine 04/29/23 documented as of this encounter
--- OUTSIDE RECORDS SUMMARY | 2024-10-25 01:04 | External Medical Summary ---
Author Name Unknown Address Unknown Organization K[facility] [place] [address] Laboratory Report Ordering Provider Test Date Status TEJAS TORRES 08/02/2024 08:41:09 Final Observation Date Value Abnormality Reference (Units ) Status SYNC LEUKOCYTES IN BLOOD BY AUTOMATED COUNT 08/02/2024 08:41:09 2.70 Below low normal 4.00-10.80 (K/uL) Final Segs 08/02/2024 08:41:09 41.5 40.0-75.0 (%) Final Lymphs % 08/02/2024 08:41:09 34.1 18.0-42.0 (%) Final Monos 08/02/2024 08:41:09 18.1 Above high normal 1.0-11.0 (%) Final Eosinophils 08/02/2024 08:41:09 5.6 0.0-6.0 (%) Final Basos 08/02/2024 08:41:09 0.7 0.0-2.0 (%) Final Absolute Segs 08/02/2024 08:41:09 1.12 Below low normal 1.80-7.70 (K/uL) Final Lymphs, absolute 08/02/2024 08:41:09 0.92 Below low normal 1.00-4.80 (K/ul) Final Monos, Abs 08/02/2024 08:41:09 0.49 0.00-1.10 (K/uL) Final Eos, Abs 08/02/2024 08:41:09 0.15 0.00-0.70 (K/uL) Final Basos, Abs 08/02/2024 08:41:09 0.02 0.00-0.20 (K/uL) Final Performing Location [facility] [place] [address]
--- OUTSIDE RECORDS SUMMARY | 2024-10-25 01:04 | External Medical Summary | Summary of Care ---
Author Name Unknown Organization [facility] Address [address] [place] [address] Phone [phone] Care Team Providers Care Sewing Machines Salesperson Name Role Phone Amanda BROWN MD, Buddy Britton Primary Care Provider [phone] Encounter Details Date Type Department Care Team (Late st Contact Info) Description 07/31/2024 Orders Only Hematology/Oncology Treatment, [facility] [address] [place] [address] Yanet Berg MD [address] [place] [address] Allergies No known active allergiesdocumented as of this encounter (statuses as of 07/31/2024) Medications Medication Sig Dispensed Refills Start Date [...] Sprays into each nostril in the morning. [place] hand to apply. 16 g 3 11/25/2023 [...] as of this encounter (statuses as of 07/31/2024) Active Problems Problem Noted Date Diagnosed Date Metastatic colon cancer to liver 11/25/2023 Protein-calorie malnutrition 08/07/2023 Malignant neoplasm of sigmoid colon 04/22/2023 Encounter for antineoplastic chemotherapy 2022 documented as of this encounter (statuses as of 07/31/2024) Immunizations Name Administration Dates Next Due Pneumococcal [...] Team (Late st Contact Info) Description 08/02/2024 9:10 AM EDT Laboratory Laboratory [facility] [place] [address] [place] [phone] [facility] [facility] [place] [address] [place] [address] 08/03/2024 9:00 AM EDT Office Visit Hematology/Oncology [facility] [place] [address] [place] [id number] Yanet Berg MD [address] [place] [address] 08/03/2024 9:30 AM EDT Hem/Onc Treatment Hematology/Oncology Treatment, [place] [address] [facility] [address] [place] [phone] Verna, Chair 11 Hem Onc [place] [address] [place] [address] 10/27/2024 7:40 AM EST Office Visit Family Practice [facility] [place] [address] [place] [address] Buddy Patel III, MD [address] [place] [address] Health Maintenance Due Date Last Done Comments COVID-19 Vaccine (#1) 1968 HIV Screening 1978 Hepatitis C Screening 1981 DTap/Tdap Vaccines (1 - Tdap) 1982 Zoster Vaccines (1 of 2) 1982 Cologuard 2008 Fecal Occult Blood Test 2008 Sigmoidoscopy 2008 Influenza Vaccine (FLU shot) (#1) 2024 Depression Screening 08/07/2024 08/07/2023 Diabetes Screening 07/19/2027 07/19/2024, 0 07/12/2024, 06/28/2024, Additional history exists Lipid Panel 12/01/2028 12/01/2023, [...] this encounter Medical Devices Implanted Type Area Teacher Of The Handicapped Device Identifier Shelf Expiration Date Model / Serial / Lot Port Implant W/8f Poly Cath - [id number] Implanted:Qty : 1 on 05/06/2023 by Leonardo Castro, at OR [facility] Right: Chest CR BARD : PERIPHERAL VASCULAR [id number] 07/16/2024 [id number] / / [id number] documented as of this encounter Care Teams Sewing Machines Salesperson Relationship Specialty Start Date End Date Buddy Patel III, MD [address] [place] [address] PCP - General Family Medicine 04/29/23 documented as of this encounter
--- OUTSIDE RECORDS SUMMARY | 2024-10-25 01:04 | External Medical Summary ---
Author Name Unknown Address Unknown Organization [facility] [address] Laboratory Report Ordering Provider Test Date Status TEJAS TORRES 08/02/2024 08:41:09 Final Observation Date Value Abnormality Reference (Units ) Status Magnesium 08/02/2024 08:41:09 2.0 1.5-2.6 (m g/dL) Final Performing Location [facility] [address]
--- OUTSIDE RECORDS SUMMARY | 2024-10-25 01:04 | External Medical Summary | Summary of Care ---
Author Name Unknown Organization [facility] Address [address] [place] [address] Phone [phone] Care Team Providers Care Manager Stone Name Role Phone Amanda BROWN MD, Buddy Britton Primary Care Provider [phone] Reason for Visit * Reason Onset Date Comments Test Results 08/02/2024 Encounter Details Date Type Department Care Team (Late st Contact Info) Description 08/02/2024 Telephone Hematology/Oncology Treatment, [place] [address] [place] [address] Yanet Berg MD 200 [place] [address] Test Results Allergies No known active allergiesdocumented [...] Sprays into each nostril in the morning. [place] hand to apply. 16 g 3 11/25/2023 [...] AM EDT Office Visit Hematology/Oncology Robin Gillespie [place] [address] [place] [address] Yanet Berg MD 200 [facility] [place] [address] 10/27/2024 7:40 AM EST Office Visit Family Practice [facility] [place] 200 [facility] [place] [address] Buddy Patel III, MD 200 [facility] [place] [address] Health Maintenance Due Date Last Done Comments [...] this encounter Medical Devices Implanted Type Area Laborer Electroplating Device Identifier Shelf Expiration Date Model / Serial / Lot Port Implant W/8f Poly Cath - [id number] Implanted:Qty : 1 on 05/06/2023 by Leonardo Castro, at OR [facility] Right: Chest CR BARD : PERIPHERAL VASCULAR [id number] 07/16/2024 [id number] / / [id number] documented as of this encounter Care Teams Manager Stone Relationship Specialty Start Date End Date Buddy Patel III, MD [address] [place] [address] PCP - General Family Medicine 04/29/23 documented as of this encounter
--- OUTSIDE RECORDS SUMMARY | 2024-10-25 01:04 | External Medical Summary ---
Author Name Unknown Address Unknown Organization [facility] [place] [address] Laboratory Report Ordering Provider Test Date Status TEJAS TORRES 08/02/2024 08:41:09 Final Observation Date Value Abnormality Reference (Units ) Status WBC, Total 08/02/2024 08:41:09 2.70 Below low normal 4. 00-10.80 (K/uL) Final RBC 08/02/2024 08:41:09 3.78 4.50-5.25 (M/uL) Final Hemoglobin 08/02/2024 08:41:09 9.4 Below low normal 14 .0-16.8 (g/dL) Final HCT 08/02/2024 08:41:09 30.8 Below low normal 40. 0-48.4 (%) Final MCV 08/02/2024 08:41:09 81.5 82.0-99.5 (fL) Final MCH 08/02/2024 08:41:09 24.9 27.0-34.0 (pg) Final MCHC 08/02/2024 08:41:09 30.5 32.0-36.0 (g/dL) Final RDW 08/02/2024 08:41:09 18.6 11.5-15.5 (%) Final Platelets 08/02/2024 08:41:09 183 140-400 (K /uL) Final MPV 08/02/2024 08:41:09 Final No result - abnormal platele t distribution. Performing Location [facility] [place] [address]
--- OUTSIDE RECORDS SUMMARY | 2024-10-25 01:04 | External Medical Summary ---
Author Name Unknown Address Unknown Organization [id number]:[facility] [address] [place] [address] Laboratory Report Ordering Provider Test Date Status TEJAS TORRES 08/02/2024 08:41:09 Final Observation Date Value Abnormality Reference (Units ) Status BUN 08/02/2024 08:41:09 7 6-20 (mg/dL) Final Creatinine 08/02/2024 08:41:09 0.6 0.6-1.2 (mg/dL) Final Glomerular filtration rate/1.73 sq M.predicted [Volume Rate/Area] in Serum, Plasma or Blood by Creatinine-based formula (CKD-EPI) 08/02/2024 08:41:09 >90 >=60 (mL/min) Final eGFR is calculated based on the CKD-EPI 2020 equation. Sodium 08/02/2024 08:41:09 137 135-146 (m mol/L) Final Potassium 08/02/2024 08:41:09 3.4 Below low normal 3.5 -5.1 (mmol/L) Final Cl 08/02/2024 08:41:09 105 98-107 (mm ol/L) Final CO2 08/02/2024 08:41:09 22 22-32 (mmo l/L) Final Anion gap 08/02/2024 08:41:09 10 7-15 (mmol /L) Final Glucose 08/02/2024 08:41:09 120 70-120 (mg /dL) Final Albumin 08/02/2024 08:41:09 3.1 Below low normal 3.8 -5.0 (g/dL) Final AST (Aspartate aminotransferase) 08/02/2024 08:41:09 21 10-50 (U/L) Fin al Alk Phos 08/02/2024 08:41:09 170 Above high normal 35 -130 (U/L) Final Bilirubin, Total 08/02/2024 08:41:09 0.6 <=1 .2 (mg/dL) Final Calcium 08/02/2024 08:41:09 8.5 8.4-10.2 ( mg/dL) Final Protein 08/02/2024 08:41:09 6.7 6.0-8.3 (g /dL) Final ALT (Alanine aminotransferase) 08/02/2024 08:41:09 12 10-50 (U/L) Jake chavez Performing Location [facility] [address] [place] [address]
--- OUTSIDE RECORDS SUMMARY | 2024-10-25 01:04 | External Medical Summary ---
Author Name Unknown Address Unknown Organization K09:[facility] [place] [address] Laboratory Report Ordering Provider Test Date Status TEJAS TORRES 08/02/2024 08:41:09 Final Observation Date Value Abnormality Reference (Units ) Status Nucleated erythrocytes/100 leukocytes [Ratio] in Blood by Automated count 08/02/2024 08:41:09 Final Performing Location [facility] [place] [address]
--- OUTSIDE RECORDS SUMMARY | 2024-10-25 01:04 | External Medical Summary | Summary of Care ---
Author Name Unknown Organization [facility] Address [address] [place] [address] Phone [phone] Care Team Providers Care Sheet Rock Installation Helper Name Role Phone Amanda BROWN MD, Budyd Britton Primary Care Provider [phone] Reason for Visit * Reason Comments Outpatient Testing Encounter Details Date Type Department Care Team (Late st Contact Info) Description 08/02/2024 9:10 AM EDT Laboratory Laboratory [facility] [address] [place] [address] [facility] [address] [place], [place] [phone] Metastatic colon cancer to liver (HCC) Allergies [...] Sprays into each nostril in the morning. [place] hand to apply. 16 g 3 11/25/2023 [...] 08/03/2024 9:00 AM EDT Office Visit Hematology/Oncology [facility] [place] [address] [place] [phone] Yanet Berg MD [facility] [place] [address] [address] 08/03/2024 9:30 AM EDT Hem/Onc Treatment Hematology/Oncology Treatment, [place] 200 [facility] [place] [phone] Verna, Chair 11 Hem Onc [place] [address] [place] [address] 10/27/2024 7:40 AM EST Office Visit Family Practice Robin Gillespie [place] [address] [place] [address] [address] Buddy Patel III, MD [facility] [place] [address] [address] Pending Results Name Type Priority Associated Diagnoses Date /Time CBC WITH WBC DIFFERENTIAL Lab STAT Metastatic colon cancer to liver (HCC) 08/02/2024 8:41 AM EDT COMPREHENSIVE METABOLIC PANEL Lab STAT Metastatic colon cancer to liver (HCC) 08/02/2024 8:41 AM EDT MAGNESIUM Lab STAT Metastatic colon cancer to liver (HCC) 08/02/2024 8:41 AM EDT CBC Lab STAT Metastatic colon cancer to liver (HCC) 08/02/2024 8:41 AM EDT DIFFERENTIAL, AUTOMATED Lab STAT Metastatic colon cancer to liver (HCC) 08/02/2024 8:41 AM EDT Health Maintenance Due Date Last [...] encounter Medical Devices Implanted Type Area Wood Heel Flap Inserter Device Identifier Shelf Expiration Date Model / Serial / Lot Port Implant W/8f Poly Cath - [id number] Implanted:Qty : 1 on 05/06/2023 by Leonardo Castro DO at OR [facility] Right: Chest CR BARD : PERIPHERAL VASCULAR [id number] 07/16/2024 [id number] / / [id number] documented as of this encounter Visit Diagnoses Diagnosis Metastatic colon cancer to liver (HCC) Malignant neoplasm of colon, unspecified site documented in this encounter Care Teams Sheet Rock Installation Helper Relationship Specialty Start Date End Date Buddy Patel III, MD 200 [place] [address] PCP - General Family Medicine 04/29/23 documented as of this encounter
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
--- OUTSIDE RECORDS SUMMARY | 2024-10-25 01:05 | External Medical Summary | Summary of Care ---
Author Name Unknown Organization [facility] Address [address] [place] [address] Phone [phone] Care Team Providers Care Service Crew Leader Name Role Phone Amanda BROWN MD, Buddy Britton Primary Care Provider [phone] Reason for Visit * Reason Comments Chemotherapy vectibix, leucovorin , irinotecan, 5fu. * Episode Based Medications (Routine) - Authorized Specialty Diagnoses / Procedures Referred By Contac t Referred To Contact Diagnoses Malignant neoplasm of sigmoid colon (HCC) Encounter for antineoplastic chemotherapy Procedures TN LEUCOVORIN CALCIUM INJECTION TN PALONOSETRON HCL TN FLUOROURACIL INJECTION TN IRINOTECAN INJECTION TN PANITUMUMAB INJECTION Yanet Berg MD [address] [place] [address], [place] [address] Anc Hem/Onc [facility] Verna [address] [place] [phone] Referral ID Status Reason Start Date Expiration Date V isits Requested Visits Authorized [id number] Authorized 05/04/2024 10/16/2099 [id number] Encounter Details Date Type Department Care Team (Latest Contact Info) Description 06/29/2024 11:30 AM EDT Hem/Onc Treatment Hematology/Oncolog y Treatment, [address] [address] Verna, Chair [address] Hem On[address] [place] [address] Malignant neoplasm of sigmoid colon (HCC)*; Encounter for antineoplastic chemotherapy Allergies No known active allergiesdocumented as of this encounter (statuses as of 07/25/2024) Medications Medication Sig Dispensed Refills Start Date [...] Sprays into each nostril in the morning. [place] hand to apply. 16 g 3 11/25/2023 [...] rash on face. 30 mL 06/27/2024 Active oxyCODONE HCl 5 MG Oral Tablet (Oxy IR)Indications:M alignant neoplasm of sigmoid colon (HCC) Take 1 Tablet by mouth every 6 hours as needed for Pain, Severe. 120 Tablet 11/04/2023 4 Discontinue d(Refill) ALPRAZolam 1 MG Oral Tablet (xaNAX) 1 tablet at bedtime as needed for sleep 30 Tablet 1 05/04/2024 4 Discontinue d(Refill) HYDROcodone-Acet aminophen 7.5-325 MG Oral TabletIndication s:Malignant neoplasm of sigmoid colon (HCC) Take 1 Tablet by mouth every 6 hours as needed for Pain, Severe. 120 Tablet 06/03/2024 Discontinue d(Refill) documented as of this encounter (statuses as of 07/25/2024) Active Problems Problem Noted Date Diagnosed Date Metastatic colon cancer to liver 11/25/2023 Protein-calorie malnutrition 08/07/2023 Malignant neoplasm of sigmoid colon 04/22/2023 Encounter for antineoplastic chemotherapy 2022 documented as of this encounter (statuses as of 07/25/2024) Immunizations Name Administration Dates Next Due Pneumococcal [...] as of this encounter Nursing Notes * Eva Martinez RN - 06/29/2024 3:11 PM EDT Goals: Patient will remain free from injury. Possible barriers to meeting goals: Fall risk d/t ambulation with IV pole. Stability of the patient: Moderately unstable - medium risk of patient condition declining or worsening Summary regarding today's goals: Met: Patient remained free of injury. Patient was connected to home infusion CADD pump, all clamps were opened to ensure adequate medication administration. Patient tolerated infusion well. Discharged in stable condition. * Eva Martinez RN - 06/29/2024 11:58 AM EDT Chair 7. Patient arrived for vectibix, leucovorin, irinotecan, 5fu.Patient was seen by Dr. Berg today (see office notes). Per Dr. Otis ruano for treatment today. VAD accessed. Chemotherapy/Immunotherapy agents: vectibix, leucovorin, irinotecan, 5fu. Consent for chemotherapy drug treatment complete, dated, and signed? yes, date - 05/04/24 Treatment lab parameters met? Yes Has treatment weight changed > than 10%? No Treatment preauthorized? Yes VITALS Filed Vitals: Urine protein: N/A Patient education completed for [...] are available. Provide and maintain safe environment. * Brenda Cantrell RN - 06/28/2024 12:31 PM EDT Bilirubin 1.6. Reviewed CBCd, CMP with bindu Reardon to proceed with treatment. documented in this encounter Plan of Treatment Upcoming Encounters Date Type Department Care Team (Late st Contact Info) Description 07/27/2024 8:00 AM EDT Imaging Radiology [address] [facility] [place] [address] 07/28/2024 9:40 AM EDT Office Visit Family Practice [facility] 200 [facility] [place] [address] Buddy Patel III, MD 200 [facility] [place] [address] 08/02/2024 9:10 AM EDT Laboratory Laboratory [facility] 200 [facility] [place] [phone] Verna Lab [address] [place] [address] 08/03/2024 9:00 AM EDT Office Visit Hematology/Oncology [facility] 200 [facility] [place] [phone] Anahy Rowan, DEJA [address] [place] [phone] 08/03/2024 9:30 AM EDT Hem/Onc Treatment Hematology/Oncology Treatment, [place] [address] [facility] [address] [place] [address] Verna, Chair 11 Hem Onc [address] [place] [address] Health Maintenance Due Date Last Done Comments [...] this encounter Medical Devices Implanted Type Area Commissary Steward Device Identifier Shelf Expiration Date Model / Serial / Lot Port Implant W/8f Poly Cath - [id number] Implanted:Qty : 1 on 05/06/2023 by Leonardo Castro DO at OR [facility] Right: Chest CR BARD : PERIPHERAL VASCULAR [id number] 07/16/2024 [id number] / / [id number] documented as of this encounter Visit Diagnoses Diagnosis Malignant neoplasm of sigmoid colon (HCC)- Primary Malignant neoplasm of sigmoid colon Encounter for antineoplastic chemotherapy documented in this encounter Administered Medications Inactive Administered Medications - up to 3 most recent administrations Medication Order MAR Action Action Date Dose Rate Site Atropine sulfate inj 0.4 mg 0.4 mg, IV Push, ONCE, On Thu06/29/24 at 1315, For 1 dose, Administer prior to irinotecan. Given 06/29/2024 1:04 PM EDT 0.4 mg dexAMETHasone (Decadron) tab 12 mg 12 mg, Oral, ONCE, On Thu06/29/24 at 1145, For 1 dose Given 06/29/2024 11:55 AM EDT 12 mg Fluorouracil (5-Fu) 5,000 mg for Home Infusion 5,000 mg (rounded from 4,968 mg = 2,400 mg/m2 2.07 m2 Treatment Plan BSA from Recorded weight), Intravenous, Administer over 46 Hours, Home Infusion Pharmacy to specify base solution and volume., ONCE, 1 dose, On Thu06/29/24 at 1145 Start Infusion 06/29/2024 2:45 PM EDT 5,000 mg 3 mL/hr Fluorouracil (5-Fu) inj 850 mg 850 mg (rounded from 828 mg = 400 mg/m2 2.07 m2 Treatment Plan BSA from Recorded weight), IV Push, ONCE, 1 dose, On Thu06/29/24 at 1215 Given 06/29/2024 2:40 PM EDT 850 mg irinotecan HCl (Camptosar) 340 mg in D5W 500 mL infusion 340 mg (rounded from 335.34 mg = 162 mg/m2 2.07 m2 Treatment Plan BSA from Recorded weight), IV Piggyback, ONCE, 1 dose, On Thu06/29/24 at 1215, Administer over 90 Minutes, PROTECT FROM LIGHT Start Infusion 06/29/2024 1:05 PM EDT 340 mg 351.33 mL/hr leucovorin calcium 850 mg in D5W 250 mL INFUSION 850 mg (rounded from 828 mg = 400 mg/m2 2.07 m2 Treatment Plan BSA from Recorded weight), IV Piggyback, ONCE, 1 dose, On Thu06/29/24 at 1215, Administer over 90 Minutes, Run over 90 minutes, prior to 5-FU Start Infusion 06/29/2024 1:04 PM EDT 850 mg 170 mL/hr NSS infusion Intravenous, at 50 mL/hr, PRN, Starting on Thu06/29/24 at 0830, Until Thu06/29/24 at 1914, Maintenance line Start Infusion 06/29/2024 11:55 AM EDT 50 mL/hr Palonosetron (Aloxi) inj SOLN 0.25 mg 0.25 mg, IV Push, ONCE, On Thu06/29/24 at 1145, For 1 dose, Restricted per S antiemetic guidelines Given 06/29/2024 11:56 AM EDT 0.25 mg Panitumumab (Vectibix) 500 mg in NSS 100 mL infusion 500 mg (rounded from 537 mg = 6 mg/kg 89.5 kg Treatment plan Recorded weight), IV Piggyback, ONCE, 1 dose, On Thu06/29/24 at 1215, Administer over 60 Minutes, Must be infused through a 0.22 micron filter. Doses 1000 mg or less infuse over 60 minutes. If first infusion tolerated, subsequent doses may be administered over 30 to 60 minutes. Doses greater than 1000 mg infuse over 90 minutes. Start Infusion 06/29/2024 12:17 PM EDT 500 mg 200 mL/hr sodium chloride 0.9 % flush central line 10 mL 10 mL, IV Push, PRN Other, IV Flush, Starting on Thu06/29/24 at 1132, Until Thu06/29/24 at 1914, For 24 hours, Do not flush if lock, PICC, or central line not in place; IV infusing or unable to flush. Given 06/29/2024 2:40 PM EDT 10 mL documented in this encounter Care Teams Service Crew Leader Relationship Specialty Start Date End Date Buddy Patel III, MD 200 [place] [address] PCP - General Family Medicine 04/29/23 documented as of this encounter
--- OUTSIDE RECORDS SUMMARY | 2024-10-25 01:05 | External Medical Summary | Summary of Care ---
Author Name Unknown Organization [facility] Address [address] [place] [address] Phone [phone] Care Team Providers Care Electronic Warfare Technician Name Role Phone Amanda BROWN MD, Buddy Britton Primary Care Provider [phone] Reason for Visit * Reason Onset Date Comments Appointment 07/28/2024 Advice 07/28/2024 Encounter Details Date Type Department Care Team (Late st Contact Info) Description 07/28/2024 Telephone Hematology/Oncology [facility] [place] 200 [facility] [place] [address] Yanet Berg MD 200 [facility] [place] [address] Appointment; Advice Allergies No known active allergiesdocumented as of this encounter (statuses as of 07/28/2024) Medications Medication Sig Dispensed Refills Start Date [...] Sprays into each nostril in the morning. [place] hand to apply. 16 g 3 11/25/2023 [...] as of this encounter (statuses as of 07/28/2024) Active Problems Problem Noted Date Diagnosed Date Metastatic colon cancer to liver 11/25/2023 Protein-calorie malnutrition 08/07/2023 Malignant neoplasm of sigmoid colon 04/22/2023 Encounter for antineoplastic chemotherapy 2022 documented as of this encounter (statuses as of 07/28/2024) Immunizations Name Administration Dates Next Due Pneumococcal [...] encounter Miscellaneous Notes * Telephone Encounter - Andrew Gusman OSA - 07/28/2024 10:33 AM EDT Patient's sister Miri presented in office and advised that patient has an appointment with Anahy on 08/04 along with his treatment. She wanted to know if appointment should be cancelled and rescheduled with Dr. Berg following the results of his CT scan, which she said were not good. She requested to be called at [phone] or [phone]. Please call and advise. documented in this encounter Plan of Treatment Upcoming Encounters Date Type Department Care Team (Late st Contact Info) Description 08/02/2024 9:10 AM EDT Laboratory [place] [address] [phone] [place] [address] 08/03/2024 9:00 AM EDT Office Visit Hematology/[place] [address] [place] [phone] Anahy Rowan CRNP [address] [place] [address] 08/03/2024 9:30 AM EDT Hem/Onc Treatment Hematology/Oncology Treatment, [place] [address] [place] [phone] [place], Chair 11 Hem Onc [facility] 200 [facility] [place] [address] 10/27/2024 7:40 AM EST Office Visit Family Practice [facility] [place] 200 [facility] [place] [address] Buddy Patel III, MD 200 [facility] [place] [address] Health Maintenance Due Date Last Done Comments [...] this encounter Medical Devices Implanted Type Area Condenser Setter Device Identifier Shelf Expiration Date Model / Serial / Lot Port Implant W/8f Poly Cath - [id number] Implanted:Qty : 1 on 05/06/2023 by Leonardo Castro DO at OR [facility] Right: Chest CR BARD : PERIPHERAL VASCULAR [id number] 07/16/2024 [id number] / / [id number] documented as of this encounter Care Teams Electronic Warfare Technician Relationship Specialty Start Date End Date Buddy Patel III, MD 200 [place] [address] PCP - General Family Medicine 04/29/23 documented as of this encounter
--- OUTSIDE RECORDS SUMMARY | 2024-10-25 01:05 | External Medical Summary | Summary of Care ---
Author Name Unknown Organization [facility] Address [address] [place] [address] Phone [phone] Care Team Providers Care Telemarketing Fundraiser Name Role Phone Amanda BROWN MD, Buddy Britton Primary Care Provider [phone] Reason for Visit * Reason Onset Date Comments Appointment 07/28/2024 Advice 07/28/2024 Encounter Details Date Type Department Care Team (Late st Contact Info) Description 07/28/2024 Telephone Hematology/Oncology [facility] [address] [place] [address] Yanet Berg MD 200 [facility] [place] [address] Appointment; Advice Allergies No known active allergiesdocumented [...] Sprays into each nostril in the morning. [place] hand to apply. 16 g 3 11/25/2023 [...] Telephone Encounter - Candace Bustillos OSA - 07/28/2024 12:07 PM EDT Changed called and made her aware * Telephone Encounter - Brenda Cantrell RN - 07/28/2024 11:[address] shows progression. Scheduling: please switch Dr Berg and Evelyne 9am patients on 08/03/24 and call Mendez's sister to let her know appt is changed to Dr Berg. Thanks! * Telephone Encounter - Andrew Gusman OSA [...] good. She requested to be called at [phone] or [phone]. Please call and advise. documented in this encounter Plan of Treatment Upcoming Encounters Date Type Department Care Team (Late st Contact Info) Description 08/02/2024 9:10 AM EDT Laboratory Laboratory [facility] [place] [address] [facility] [place] [phone] [facility] [address] [place] [address] 08/03/2024 9:00 AM EDT Office Visit Hematology/Oncology [facility] [place] [address] [facility] [place] [phone] Yanet Berg MD 200 [facility] [place] [address] 08/03/2024 9:30 AM EDT Hem[facility] [address] [place] [phone] Verna, Chair 11 Hem Onc [address] [place] [address] 10/27/2024 7:40 AM EST Office Visit Family Practice [facility] [place] [address] [facility] [place] [address] Buddy Patel III, MD [address] [facility] [place] [address] Health Maintenance Due Date Last Done Comments [...] this encounter Medical Devices Implanted Type Area Purler Device Identifier Shelf Expiration Date Model / Serial / Lot Port Implant W/8f Poly Cath - [id number] Implanted:Qty : 1 on 05/06/2023 by Leonardo Castro DO at OR [facility] Right: Chest CR BARD : PERIPHERAL VASCULAR [id number] 07/16/2024 [id number] / / [id number] documented as of this encounter Care Teams Telemarketing Fundraiser Relationship Specialty Start Date End Date Buddy Patel III, MD 200 [facility] [place] [address] PCP - General Family Medicine 04/29/23 documented as of this encounter
--- OUTSIDE RECORDS SUMMARY | 2024-10-25 01:05 | External Medical Summary | Summary of Care ---
Author Name Unknown Organization [facility] Address [address] [place] [address] Phone [phone] Care Team Providers Care Slate Cutter Name Role Phone Amanda BROWN MD, Buddy Britton Primary Care Provider [phone] Reason for Visit * Reason Comments Chemotherapy vectibix, leucovorin , irinotecan, 5fu. * Episode Based Medications (Routine) - Authorized Specialty Diagnoses / Procedures Referred By Contac t Referred To Contact Diagnoses Malignant neoplasm of sigmoid colon (HCC) Encounter for antineoplastic chemotherapy Procedures [place] LEUCOVORIN CALCIUM INJECTION [place] PALONOSETRON HCL [place] FLUOROURACIL INJECTION [place] IRINOTECAN INJECTION [place] PANITUMUMAB INJECTION Yanet Berg MD [address] [place] [address], [place] [address] Anc Hem/Onc [facility] [place] [address] [place] [phone] Referral ID Status Reason Start Date Expiration Date V isits Requested Visits Authorized [id number] Authorized 05/04/2024 10/16/2099 999 999 Encounter Details Date Type Department Care Team (Latest Contact Info) Description 06/29/2024 11:30 AM EDT Hem/Onc Treatment Hematology/Oncolog y Treatment, [address] [address] Verna, Chair 11 Hem On[address] [place] [address] Malignant neoplasm of sigmoid colon (HCC)*; Encounter for antineoplastic chemotherapy Allergies No known active allergiesdocumented as of this encounter (statuses as of 07/24/2024) Medications Medication Sig Dispensed Refills Start Date [...] Sprays into each nostril in the morning. [place] hand to apply. 16 g 3 11/25/2023 [...] as of this encounter (statuses as of 07/24/2024) Active Problems Problem Noted Date Diagnosed Date Metastatic colon cancer to liver 11/25/2023 Protein-calorie malnutrition 08/07/2023 Malignant neoplasm of sigmoid colon 04/22/2023 Encounter for antineoplastic chemotherapy 2022 documented as of this encounter (statuses as of 07/24/2024) Immunizations Name Administration Dates Next Due Pneumococcal [...] Description 07/27/2024 8:00 AM EDT Imaging Radiology [address] 132 [facility] [place] [address] 07/28/2024 9:40 AM EDT Office Visit Family Practice [facility] 200 [facility] [place] [address] Buddy Patel III, MD 200 [facility] [place] [address] 08/02/2024 9:10 AM EDT Laboratory Laboratory [facility] 200 [facility] [place] [phone] Verna Lab [address] [place] [address] 08/03/2024 9:00 AM EDT Office Visit Hematology/Oncology [facility] 200 [facility] [place] [phone] Anahy Rowan, DEJA [address] [place] [phone] 08/03/2024 9:30 AM EDT Hem/Onc Treatment Hematology/Oncology Treatment, [place] [address] [facility] [address] [place] [address] Verna, Chair [address] Hem On[address] [place] [address] Health Maintenance Due Date Last Done Comments [...] this encounter Medical Devices Implanted Type Area Cq Developer Device Identifier Shelf Expiration Date Model / Serial / Lot Port Implant W/8f Poly Cath - [id number] Implanted:Qty : 1 on 05/06/2023 by Leonardo Castro DO at OR [facility] Right: Chest CR BARD : PERIPHERAL VASCULAR [id number] 07/16/2024 [id number] / / [id number] documented as of this encounter Visit Diagnoses [...] mL documented in this encounter Care Teams Slate Cutter Relationship Specialty Start Date End Date Buddy Patel III, MD 200 [place] [address] PCP - General Family Medicine 04/29/23 documented as of this encounter
--- OUTSIDE RECORDS SUMMARY | 2024-10-25 01:05 | External Medical Summary | Summary of Care ---
Author Name Unknown Organization [facility] Address [address] [place] [address] Phone [phone] Care Team Providers Care Pastor Name Role Phone Amanda BROWN MD, Buddy Britton Primary Care Provider [phone] Reason for Visit * Reason Comments Chemotherapy vectibix, leucovorin , irinotecan, 5fu. * Episode Based Medications (Routine) - Authorized Specialty Diagnoses / Procedures Referred By Contac t Referred To Contact Diagnoses Malignant neoplasm of sigmoid colon (HCC) Encounter for antineoplastic chemotherapy Procedures [place] LEUCOVORIN CALCIUM INJECTION [place] PALONOSETRON HCL [place] FLUOROURACIL INJECTION [place] IRINOTECAN INJECTION [place] PANITUMUMAB INJECTION Yanet Berg MD [address] [place] [address], [place] [address] Anc Hem/Onc [facility] [place] [address] [place] [phone] Referral ID Status Reason Start Date Expiration Date V isits Requested Visits Authorized [id number] Authorized 05/04/2024 10/16/2099 999 999 Encounter Details Date Type Department Care Team (Latest Contact Info) Description 06/29/2024 11:30 AM EDT Hem/Onc Treatment Hematology/Oncolog y Treatment, [address] [address] Verna, Chair [address] Hem [address] [place] [address] Malignant neoplasm of sigmoid colon (HCC)*; Encounter [...] Sprays into each nostril in the morning. [place] hand to apply. 16 g 3 [...] Description 07/27/2024 8:00 AM EDT Imaging Radiology [address] 132 [facility] [place] [address] 07/28/2024 9:40 AM EDT Office Visit Family Practice [facility] 200 [facility] [place] [address] Buddy Patel III, MD 200 [facility] [place] [address] 08/02/2024 9:10 AM EDT Laboratory Laboratory [facility] 200 [facility] [place] [phone] [facility] Lab [address] [place] [address] 08/03/2024 9:00 AM EDT Office Visit Hematology/Oncology [facility] 200 [facility] [place] [phone] Anahy Rowan, DEJA [address] [place] [phone] 08/03/2024 9:30 AM EDT Hem/Onc Treatment Hematology/Oncology Treatment, [place] [address] [facility] [address] [place] [address] Verna, Chair 11 Hem Onc [address] [place] [address] Health Maintenance Due Date Last Done Comments [...] this encounter Medical Devices Implanted Type Area Media Marketing Manager Device Identifier Shelf Expiration Date Model / Serial / Lot Port Implant W/8f Poly Cath - [id number] Implanted:Qty : 1 on 05/06/2023 by Leonardo Castro DO at OR [facility] Right: Chest CR BARD : PERIPHERAL VASCULAR [id number] 07/16/2024 [id number] / / [id number] documented as of this encounter Visit Diagnoses [...] mL documented in this encounter Care Teams Pastor Relationship Specialty Start Date End Date Buddy Patel III, MD 200 [place] [address] PCP - General Family Medicine 04/29/23 documented as of this encounter
--- OUTSIDE RECORDS SUMMARY | 2024-10-25 01:05 | External Medical Summary | Summary of Care ---
Author Name Unknown Organization [facility] Address [address] [place] [address] Phone [phone] Care Team Providers Care Latin Dance Instructor Name Role Phone Amanda BROWN MD, Buddy Britton Primary Care Provider [phone] Reason for Visit * Reason Comments Chemotherapy vectibix, leucovorin , irinotecan, 5fu. * Episode Based Medications (Routine) - Authorized Specialty Diagnoses / Procedures Referred By Contac t Referred To Contact Diagnoses Malignant neoplasm of sigmoid colon (HCC) Encounter for antineoplastic chemotherapy Procedures [place] LEUCOVORIN CALCIUM INJECTION [place] PALONOSETRON HCL [place] FLUOROURACIL INJECTION [place] IRINOTECAN INJECTION [place] PANITUMUMAB INJECTION Yanet Berg MD [address] [place] [address], [place] [address] Anc Hem/Onc [facility] [place] [address] [place] [phone] Referral ID Status Reason Start Date Expiration Date V isits Requested Visits Authorized [id number] Authorized 05/04/2024 10/16/2099 999 999 Encounter Details Date Type Department Care Team (Latest Contact Info) Description 06/29/2024 11:30 AM EDT Hem/Onc Treatment Hematology/Oncolog y Treatment, [address] [address] Verna, Chair [address] [place] [address] Malignant neoplasm of sigmoid colon (HCC)*; Encounter [...] Sprays into each nostril in the morning. [place] hand to apply. 16 g 3 11/25/2023 [...] Description 07/27/2024 8:00 AM EDT Imaging Radiology [address] 132 [facility] [place] [address] 07/28/2024 9:40 AM EDT Office Visit Family Practice [facility] 200 [facility] [place] [address] Buddy Patel III, MD 200 [facility] [place] [address] 08/02/2024 9:10 AM EDT Laboratory Laboratory [facility] 200 [facility] [place] [phone] Vern[place] Lab [address] [place] [address] 08/03/2024 9:00 AM EDT Office Visit Hematology/Oncology [facility] 200 [facility] [place] [phone] Anahy Rowan, DEJA [address] [place] [phone] 08/03/2024 9:30 AM EDT Hem/Onc Treatment Hematology/Oncology Treatment, [place] [address] [facility] [address] [place] [address] Verna, Chair 11 Hem Onc [address] [place] [address] Health Maintenance Due Date Last Done Comments [...] this encounter Medical Devices Implanted Type Area Still Photographer Device Identifier Shelf Expiration Date Model / Serial / Lot Port Implant W/8f Poly Cath - [id number] Implanted:Qty : 1 on 05/06/2023 by Leonardo Castro DO at OR [facility] Right: Chest CR BARD : PERIPHERAL VASCULAR [id number] 07/16/2024 [id number] / / [id number] documented as of this encounter Visit Diagnoses [...] mL documented in this encounter Care Teams Latin Dance Instructor Relationship Specialty Start Date End Date Buddy Patel III, MD 200 [place] [address] PCP - General Family Medicine 04/29/23 documented as of this encounter
--- OUTSIDE RECORDS SUMMARY | 2024-10-25 01:05 | External Medical Summary | Summary of Care ---
Author Name Unknown Organization [facility] Address [address] [place] [address] Phone [phone] Care Team Providers Care Entry Level Buyer Name Role Phone Amanda BROWN MD, Buddy Britton Primary Care Provider [phone] Reason for Visit * Reason Onset Date Comments Appointment 07/28/2024 Advice 07/28/2024 Encounter Details Date Type Department Care Team (Late st Contact Info) Description 07/28/2024 Telephone Hematology/Oncology [facility] [place] 200 [facility] [place] [address] Yanet Berg MD 200 [facility] [place] [address] Appointment; Advice Allergies No known active allergiesdocumented [...] Sprays into each nostril in the morning. [place] hand to apply. 16 g 3 11/25/2023 [...] good. She requested to be called at [phone] or [phone]. Please call and advise. documented in this encounter Plan of Treatment Upcoming Encounters Date Type Department Care Team (Late st Contact Info) Description 08/02/2024 9:10 AM EDT Laboratory Laboratory [facility] [address] [place] [phone] Verna, Lab [facility] 200 [facility] [place] [address] 08/03/2024 9:00 AM EDT Office Visit Hematology/Oncology [facility] [address] [place] [phone] Anahy Rowan CRNP [address] [place] [address] 08/03/2024 9:30 AM EDT Hem/Onc Treatment Hematology/Oncology [facility] [place] [address] [place] [phone] Verna, Chair 11 Hem Onc [address] [place] [address] 10/27/2024 7:40 AM EST Office Visit Family Practice [facility] [place] 200 [facility] [place] [address] Dooly IIIBuddy MD 200 [facility] [place] [address] Health Maintenance Due Date Last Done Comments [...] this encounter Medical Devices Implanted Type Area Gold Leaf Printer Device Identifier Shelf Expiration Date Model / Serial / Lot Port Implant W/8f Poly Cath - [id number] Implanted:Qty : 1 on 05/06/2023 by Leonardo Castro, at OR [facility] Right: Chest CR BARD : PERIPHERAL VASCULAR [id number] 07/16/2024 [id number] / / [id number] documented as of this encounter Care Teams Entry Level Buyer Relationship Specialty Start Date End Date Buddy Patel III, MD 200 [place] [address] PCP - General Family Medicine 04/29/23 documented as of this encounter
--- OUTSIDE RECORDS SUMMARY | 2024-10-25 01:06 | External Medical Summary | Summary of Care ---
Author Name Unknown Organization [facility] Address [address] [place] [address] Phone [phone] Care Team Providers Care Public Affairs Manager Name Role Phone Amanda BROWN MD, Buddy Britton Primary Care Provider [phone] Reason for Visit * Reason Comments IV Therapy Hydration/potassium. Encounter Details Date Type Department Care Team (Latest Contact Info) Description 06/21/2024 11:30 AM EDT Hem/Onc Treatment Hematology/Oncolog y Treatment, [place] 200 [place] [address] Verna, Chair 4 Hem Onc [place] [address] [place] [address] Malignant neoplasm of sigmoid colon (HCC)*; Metastatic [...] Sprays into each nostril in the morning. [place] hand to apply. 16 g 3 11/25/2023 Active Additional Information Patient not taking.Reported on 03/02/2024 Ondansetron HCl 8 MG Oral Tablet (Zofran)Indicati ons:Malignant neoplasm of sigmoid colon (HCC) Take 1 Tablet by mouth every 8 hours as needed for Nausea. 30 Tablet 2 05/10/2024 Active oxyCODONE HCl 5 MG Oral Tablet [...] needed for Pain, Severe. 120 Tablet 06/03/2024 4 Discontinue d(Refill) documented as of this [...] Nursing Notes * Eva Martinez RN - 06/21/2024 2:22 PM EDT Goals: Patient will remain free from injury. Possible barriers to meeting goals: Fall risk d/t ambulation with IV pole. Stability of the patient: Moderately stable - low risk of patient condition declining or worsening Summary regarding today's goals: Met: Patient remained free of injury. Patient tolerated infusion well. Discharged in stable condition. * Eva Martinez RN - 06/21/2024 12:10 PM EDT Chair 11. Patient arrived for hydration/potassium. Patient was seen by DEJA Li today. Per Breann going to give hydration/potassium today, delay treatment tomorrow x1 week. VAD accessed. Patient instructed on use of heat and [...] Description 07/27/2024 8:00 AM EDT Imaging Radiology [facility] 1st [facility] [place] [address] [place] [address] 07/28/2024 9:40 AM EDT Office Visit Family Practice [facility] [place] [address] [place] [address] Buddy Patel III, MD [address] [facility] [place] [address] 08/02/2024 9:10 AM EDT Laboratory Laboratory [facility] [address] [place] [phone] Verna Lab [facility] 200 [facility] [place] [address] 08/03/2024 9:00 AM EDT Office Visit Hematology/Oncology [facility] [address] [place] [address] Anahy Rowan CRNP [address] [place] [address] [place] [address] 08/03/2024 9:30 AM EDT Hem/Onc Treatment Hematology/Oncology Treatment, [place] 200 [facility] [address] [place], [place] [phone] Verna, Chair 11 Hem Onc [address] [place] [address] Health Maintenance Due Date Last Done Comments [...] this encounter Medical Devices Implanted Type Area Shop Manager Device Identifier Shelf Expiration Date Model / Serial / Lot Port Implant W/8f Poly Cath - [id number] Implanted:Qty : 1 on 05/06/2023 by Leonardo Castro, at OR [facility] Right: Chest CR BARD : PERIPHERAL VASCULAR [id number] 07/16/2024 [id number] / / [id number] documented as of this encounter Visit Diagnoses [...] Lock, PRN Other, IV Flush, Starting on Thu06/21/24 at 1208, Until Thu06/21/24 at 1824, For 24 hours, Do not flush if lock, PICC, or central line not in place; IV infusing or unable to flush. Given 06/21/2024 2:17 PM EDT 500 Units NSS infusion FOR HYDRATION Intravenous, at 500 mL/hr Administer over 2 Hours, ONCE, 1 dose, On Thu06/21/24 at 1315 Start Infusion 06/21/2024 12:21 PM EDT 1,000 mL 500 mL/hr potassium chloride 10 mEq in 100 mL ivpb LOCKED DOSE 10 mEq, Peripheral IV, Q1H, 2 doses, First dose on Thu06/21/24 at 1300, Last dose on Thu06/21/24 at 1400, Administer over 60 Minutes, Standard infusion duration is 60 minutes. Start Infusion 06/21/2024 1:22 PM EDT 10 mEq 100 mL/hr Start Infusion 06/21/2024 12:22 PM EDT 10 mEq 100 mL/h r sodium chloride 0.9 % flush central line 10 mL 10 mL, IV Push, PRN Other, IV Flush, Starting on Thu06/21/24 at 1208, Until Thu06/21/24 at 1824, For 24 hours, Do not flush if lock, PICC, or central line not in place; IV infusing or unable to flush. Given 06/21/2024 2:17 PM EDT 10 mL documented in this encounter Care Teams Public Affairs Manager Relationship Specialty Start Date End Date Amanda Buddy BROWN MD [address] [place] [address], [place] [address] PCP - General Family Medicine 04/29/23 documented as of this encounter
--- OUTSIDE RECORDS SUMMARY | 2024-10-25 01:06 | External Medical Summary | Summary of Care ---
Author Name Unknown Organization [facility] Address [address] [place] [address] Phone [phone] Care Team Providers Care Trousseau Consultant Name Role Phone Amanda BROWN MD, Buddy Britton Primary Care Provider [phone] Reason for Visit * Reason Comments Chemotherapy vectibix, leucovorin , irinotecan, 5fu. * Episode Based Medications (Routine) - Authorized Specialty Diagnoses / Procedures Referred By Contac t Referred To Contact Diagnoses Malignant neoplasm of sigmoid colon (HCC) Encounter for antineoplastic chemotherapy Procedures [place] LEUCOVORIN CALCIUM INJECTION [place] PALONOSETRON HCL [place] FLUOROURACIL INJECTION [place] IRINOTECAN INJECTION [place] PANITUMUMAB INJECTION Yanet Berg MD [address] [place] [address], [place] [address] Anc Hem/Onc [facility] [address] [place] [phone] Referral ID Status Reason Start Date Expiration Date V isits Requested Visits Authorized [id number] Authorized 05/04/2024 10/16/2099 999 999 Encounter Details Date Type Department Care Team (Latest Contact Info) Description 06/29/2024 11:30 AM EDT Hem/Onc Treatment Hematology/Oncolog y Treatment, [address] [address] Verna, Chair [address] Hem [address] [place] [address] Malignant neoplasm of sigmoid colon (HCC)*; Encounter [...] Sprays into each nostril in the morning. [place] hand to apply. 16 g 3 11/25/2023 [...] Description 07/27/2024 8:00 AM EDT Imaging Radiology [address] 132 [facility] [place] [address] 07/28/2024 9:40 AM EDT Office Visit Family Practice [facility] 200 [facility] [place] [address] Buddy Patel III, MD 200 [facility] [place] [address] 08/02/2024 9:10 AM EDT Laboratory Laboratory [facility] 200 [facility] [place] [phone] Verna Lab [address] [place] [address] 08/03/2024 9:00 AM EDT Office Visit Hematology/Oncology [facility] 200 [facility] [place] [phone] Anahy Rowan, DEJA [address] [place] [phone] 08/03/2024 9:30 AM EDT Hem/Onc Treatment Hematology/Oncology Treatment, [place] [address] [facility] [address] [place] [address] Verna, Chair 11 Hem Onc [address] [place] [address] Health Maintenance Due Date Last Done Comments [...] this encounter Medical Devices Implanted Type Area Hat Forming Machine Feeder Device Identifier Shelf Expiration Date Model / Serial / Lot Port Implant W/8f Poly Cath - [id number] Implanted:Qty : 1 on 05/06/2023 by Leonardo Castro DO at OR [facility] Right: Chest CR BARD : PERIPHERAL VASCULAR [id number] 07/16/2024 [id number] / / [id number] documented as of this encounter Visit Diagnoses [...] mL documented in this encounter Care Teams Trousseau Consultant Relationship Specialty Start Date End Date Buddy Patel III, MD 200 [place] [address] PCP - General Family Medicine 04/29/23 documented as of this encounter
--- OUTSIDE RECORDS SUMMARY | 2024-10-25 01:06 | External Medical Summary | Summary of Care ---
Author Name Unknown Organization [facility] Address [address] [place] [address] Phone [phone] Care Team Providers Care Carton Forming Machine Helper Name Role Phone Amanda BROWN MD, Buddy Britton Primary Care Provider [phone] Reason for Visit * Reason Comments Chemotherapy vectibix, leucovorin , irinotecan, 5fu. * Episode Based Medications (Routine) - Authorized Specialty Diagnoses / Procedures Referred By Contac t Referred To Contact Diagnoses Malignant neoplasm of sigmoid colon (HCC) Encounter for antineoplastic chemotherapy Procedures [place] LEUCOVORIN CALCIUM INJECTION [place] PALONOSETRON HCL [place] FLUOROURACIL INJECTION [place] IRINOTECAN INJECTION [place] PANITUMUMAB INJECTION Yanet Berg MD [address] [place] [address], [place] [address] Anc Hem/Onc [facility] Verna [address] [place] [phone] Referral ID Status Reason Start Date Expiration Date V isits Requested Visits Authorized [id number] Authorized 05/04/2024 10/16/2099 999 [id number] Encounter Details Date Type Department Care Team (Latest Contact Info) Description 06/29/2024 11:30 AM EDT Hem/Onc Treatment Hematology/Oncolog y Treatment, [address] [address] Verna, Chair [address] [place] [address] Malignant neoplasm of sigmoid colon (HCC)*; Encounter [...] Sprays into each nostril in the morning. [place] hand to apply. 16 g 3 11/25/2023 [...] Description 07/27/2024 8:00 AM EDT Imaging Radiology [address] 132 [facility] [place] [address] 07/28/2024 9:40 AM EDT Office Visit Family Practice [facility] 200 [facility] [place] [address] Buddy Patel III, MD 200 [facility] [place] [address] 08/02/2024 9:10 AM EDT Laboratory Laboratory [facility] 200 [facility] [place] [phone] Verna Lab [address] [place] [address] 08/03/2024 9:00 AM EDT Office Visit Hematology/Oncology [facility] 200 [facility] [place] [phone] Anahy Rowan, DEJA [address] [place] [id number] 08/03/2024 9:30 AM EDT Hem/Onc Treatment Hematology/Oncology Treatment, [place] [address] [facility] [address] [place] [address] Verna, Chair 11 Hem Onc [address] [place] [address] Health Maintenance Due Date Last Done Comments [...] this encounter Medical Devices Implanted Type Area Chassis Engineer Device Identifier Shelf Expiration Date Model / Serial / Lot Port Implant W/8f Poly Cath - [id number] Implanted:Qty : 1 on 05/06/2023 by Leonardo Castro DO at OR [facility] Right: Chest CR BARD : PERIPHERAL VASCULAR [id number] 07/16/2024 [id number] / / [id number] documented as of this encounter Visit Diagnoses [...] mL documented in this encounter Care Teams Carton Forming Machine Helper Relationship Specialty Start Date End Date Buddy Paetl III, MD 200 [facility] [place] [address] PCP - General Family Medicine 04/29/23 documented as of this encounter
--- OUTSIDE RECORDS SUMMARY | 2024-10-25 01:06 | External Medical Summary | Summary of Care ---
Author Name Unknown Organization [facility] Address [address] [place] [address] Phone [phone] Care Team Providers Care Heel Gouger Name Role Phone Amanda BROWN MD, Buddy Britton Primary Care Provider [phone] Reason for Visit * Reason Comments Chemotherapy vectibix, leucovorin , irinotecan, 5fu. * Episode Based Medications (Routine) - Authorized Specialty Diagnoses / Procedures Referred By Contac t Referred To Contact Diagnoses Malignant neoplasm of sigmoid colon (HCC) Encounter for antineoplastic chemotherapy Procedures IN LEUCOVORIN CALCIUM INJECTION IN PALONOSETRON HCL IN FLUOROURACIL INJECTION IN IRINOTECAN INJECTION IN PANITUMUMAB INJECTION Yanet Berg MD [address] [place] [address], [place] [address] Anc Hem/Onc [facility] Verna [address] [place] [phone] Referral ID Status Reason Start Date Expiration Date V isits Requested Visits Authorized [id number] Authorized 05/04/2024 10/16/[phone] Encounter Details Date Type Department Care Team (Latest Contact Info) Description 06/29/2024 11:30 AM EDT Hem/Onc Treatment Hematology/Oncolog y Treatment, [address] [address] Verna, Chair 11 Hem [address] [place] [address] Malignant neoplasm of sigmoid colon (HCC)*; Encounter [...] Sprays into each nostril in the morning. [place] hand to apply. 16 g 3 11/25/2023 [...] Description 07/27/2024 8:00 AM EDT Imaging Radiology [address] 132 [facility] [place] [address] 07/28/2024 9:40 AM EDT Office Visit Family Practice [facility] 200 [facility] [place] [address] Buddy Patel III, MD 200 [facility] [place] [address] 08/02/2024 9:10 AM EDT Laboratory Laboratory [facility] 200 [facility] [place] [phone] Verna Lab [address] [place] [address] 08/03/2024 9:00 AM EDT Office Visit Hematology/Oncology [facility] 200 [facility] [place] [phone] Anahy Rowan, DEJA [address] [place] [address] [id number] 08/03/2024 9:30 AM EDT Hem/Onc Treatment Hematology/Oncology Treatment, [place] 200 [facility] [address] [place] [address] Verna, Chair 11 Hem Onc [address] [place] [address] Health Maintenance Due Date Last Done Comments [...] this encounter Medical Devices Implanted Type Area Forensic Dna Analyst Device Identifier Shelf Expiration Date Model / Serial / Lot Port Implant W/8f Poly Cath - [id number] Implanted:Qty : 1 on 05/06/2023 by Leonardo Castro DO at OR [facility] Right: Chest CR BARD : PERIPHERAL VASCULAR [id number] 07/16/2024 [id number] / / [id number] documented as of this encounter Visit Diagnoses [...] mL documented in this encounter Care Teams Heel Gouger Relationship Specialty Start Date End Date Buddy Patel III, MD 200 [place] [address] PCP - General Family Medicine 04/29/23 documented as of this encounter
--- OUTSIDE RECORDS SUMMARY | 2024-10-25 01:06 | External Medical Summary | Summary of Care ---
Author Name Unknown Organization [facility] Address [address] [place] [address] Phone [phone] Care Team Providers Care Nonprofit Financial Controller Name Role Phone Amanda BROWN MD, Buddy Britton Primary Care Provider [phone] Reason for Visit * Reason Comments IV Therapy Hydration/potassium. Encounter Details Date Type Department Care Team (Latest Contact Info) Description 06/21/2024 11:30 AM EDT Hem/Onc Treatment Hematology/Oncolog y Treatment, [place] 200 [place] [address] Verna, Chair 4 Hem Onc Scenery [address] [place] [address] Malignant neoplasm of sigmoid colon (HCC)*; Metastatic [...] Sprays into each nostril in the morning. [place] hand to apply. 16 g 3 11/25/2023 [...] Description 07/27/2024 8:00 AM EDT Imaging Radiology [facility] 1st [facility] [place] [address] [place] [address] 07/28/2024 9:40 AM EDT Office Visit Family Practice [facility] [place] [address] [place] [address] Buddy Patel III, MD [address] [facility] [place] [address] 08/02/2024 9:10 AM EDT Laboratory Laboratory [facility] [address] [place] [phone] Verna Lab [facility] 200 [facility] [place] [address] 08/03/2024 9:00 AM EDT Office Visit Hematology/Oncology [facility] [address] [place] [address] Anahy Rowan CRNP [address] [place] [address] [place] [address] 08/03/2024 9:30 AM EDT Hem/Onc Treatment Hematology/Oncology Treatment, [place] 200 [facility] [address] [place], [place] [phone] Verna, Chair 11 Hem Onc [address] [place] [address] Health Maintenance Due Date Last Done Comments [...] this encounter Medical Devices Implanted Type Area Cryptological Technician Device Identifier Shelf Expiration Date Model / Serial / Lot Port Implant W/8f Poly Cath - [id number] Implanted:Qty : 1 on 05/06/2023 by Leonardo Castro, at OR [facility] Right: Chest CR BARD : PERIPHERAL VASCULAR [id number] 07/16/2024 [id number] / / [id number] documented as of this encounter Visit Diagnoses [...] mL documented in this encounter Care Teams Nonprofit Financial Controller Relationship Specialty Start Date End Date Amanda Buddy BROWN MD [address] [place] [address], [place] [address] PCP - General Family Medicine 04/29/23 documented as of this encounter
--- OUTSIDE RECORDS SUMMARY | 2024-10-25 01:06 | External Medical Summary | Summary of Care ---
Author Name Unknown Organization [facility] Address [address] [place] [address] Phone [phone] Care Team Providers Care Mechanical Systems Engineer Name Role Phone Amanda BROWN MD, Buddy Britton Primary Care Provider [phone] Reason for Visit * Reason Comments Chemotherapy vectibix, leucovorin , irinotecan, 5fu. * Episode Based Medications (Routine) - Authorized Specialty Diagnoses / Procedures Referred By Contac t Referred To Contact Diagnoses Malignant neoplasm of sigmoid colon (HCC) Encounter for antineoplastic chemotherapy Procedures [place] LEUCOVORIN CALCIUM INJECTION [place] PALONOSETRON HCL [place] FLUOROURACIL INJECTION [place] IRINOTECAN INJECTION [place] PANITUMUMAB INJECTION Yanet Berg MD [address] [place] [address], [place] [address] Anc Hem/Onc [facility] Verna [address] [place] [phone] Referral ID Status Reason Start Date Expiration Date V isits Requested Visits Authorized [id number] Authorized 05/04/2024 10/16/2099 999 999 Encounter Details Date Type Department Care Team (Latest Contact Info) Description 06/29/2024 11:30 AM EDT Hem/Onc Treatment Hematology/Oncolog y Treatment, [address] [address] Verna, Chair [address] [place] [address] Malignant neoplasm of sigmoid colon (HCC)*; Encounter [...] into each nostril in the morning. [place] hand to apply. 16 g 3 11/25/2023 [...] 07/27/2024 8:00 AM EDT Imaging Radiology [address] 132 [facility] [place] [address] 07/28/2024 9:40 AM EDT Office Visit Family Practice [facility] 200 [facility] [place] [address] Buddy Patel III, MD 200 [facility] [place] [address] 08/02/2024 9:10 AM EDT Laboratory Laboratory [facility] 200 [facility] [place] [phone] Verna Lab [address] [place] [address] 08/03/2024 9:00 AM EDT Office Visit Hematology/Oncology [facility] 200 [facility] [place] [phone] Anahy Rowan, DEJA [address] [place] [id number] 08/03/2024 9:30 AM EDT Hem/Onc Treatment Hematology/Oncology Treatment, [place] 200 [facility] [address] [place] [address] Verna, Chair 11 Hem Onc [address] [place] [address] Health Maintenance Due Date Last Done Comments [...] encounter Medical Devices Implanted Type Area Hotel Clerk Device Identifier Shelf Expiration Date Model / Serial / Lot Port Implant W/8f Poly Cath - [id number] Implanted:Qty : 1 on 05/06/2023 by Leonardo Castro DO at OR [facility] Right: Chest CR BARD : PERIPHERAL VASCULAR [id number] 07/16/2024 [id number] / / [id number] documented as of this encounter Visit Diagnoses [...] mL documented in this encounter Care Teams Mechanical Systems Engineer Relationship Specialty Start Date End Date Buddy Patel III, MD 200 [place] [address] PCP - General Family Medicine 04/29/23 documented as of this encounter
--- OUTSIDE RECORDS SUMMARY | 2024-10-25 01:06 | External Medical Summary | Summary of Care ---
Author Name Unknown Organization [facility] Address [address] [place] [address] Phone [phone] Care Team Providers Care Court Manager Name Role Phone Amanda BROWN MD, Buddy Britton Primary Care Provider [phone] Reason for Visit * Reason Comments IV Therapy Hydration/potassium. Encounter Details Date Type Department Care Team (Latest Contact Info) Description 06/21/2024 11:30 AM EDT Hem/Onc Treatment Hematology/Oncolog y Treatment, [place] 200 [place] [address] Verna, Chair 4 Hem Onc Scenery 200 [place] [address] Malignant neoplasm of sigmoid colon (HCC)*; Metastatic [...] Sprays into each nostril in the morning. [place] hand to apply. 16 g 3 11/25/2023 [...] Description 07/27/2024 8:00 AM EDT Imaging Radiology [facility] 1st [facility], [place] [address] [place] [address] 07/28/2024 9:40 AM EDT Office Visit Family Practice [facility] [place] [address] [place] [address] Buddy Patel III, MD [address] [facility] [place] [address] 08/02/2024 9:10 AM EDT Laboratory Laboratory [facility] [address] [place] [phone] Verna Lab [facility] 200 [facility] [place] [address] 08/03/2024 9:00 AM EDT Office Visit Hematology/Oncology [facility] [address] [place] [address] Anahy Rowan CRNP [address] [place] [address] [place] [address] 08/03/2024 9:30 AM EDT Hem/Onc Treatment Hematology/Oncology Treatment, [place] [address] [facility] [address] [place], [place] [address] Verna, Chair 11 Hem On[address] [place] [address] Health Maintenance Due Date Last Done Comments [...] this encounter Medical Devices Implanted Type Area Branch Operation Evaluation Manager Device Identifier Shelf Expiration Date Model / Serial / Lot Port Implant W/8f Poly Cath - [id number] Implanted:Qty : 1 on 05/06/2023 by Leonardo Castro, at OR [facility] Right: Chest CR BARD : PERIPHERAL VASCULAR [id number] 07/16/2024 [id number] / / [id number] documented as of this encounter Visit Diagnoses [...] mL documented in this encounter Care Teams Court Manager Relationship Specialty Start Date End Date Amanda Buddy BROWN MD [address] [place] [address], [place] [address] PCP - General Family Medicine 04/29/23 documented as of this encounter
--- OUTSIDE RECORDS SUMMARY | 2024-10-25 01:06 | External Medical Summary | Summary of Care ---
Author Name Unknown Organization [facility] Address [address] [place] [address] Phone [phone] Care Team Providers Care Registered Travel Nurse Name Role Phone Amanda BROWN MD, Buddy Britton Primary Care Provider [phone] Reason for Visit * Reason Comments Chemotherapy vectibix, leucovorin , irinotecan, 5fu. * Episode Based Medications (Routine) - Authorized Specialty Diagnoses / Procedures Referred By Contac t Referred To Contact Diagnoses Malignant neoplasm of sigmoid colon (HCC) Encounter for antineoplastic chemotherapy Procedures [place] LEUCOVORIN CALCIUM INJECTION [place] PALONOSETRON HCL [place] FLUOROURACIL INJECTION [place] IRINOTECAN INJECTION [place] PANITUMUMAB INJECTION Yanet Berg MD [address] [place] [address], [place] [address] Anc Hem/Onc [facility] Verna [address] [place] [phone] Referral ID Status Reason Start Date Expiration Date V isits Requested Visits Authorized [id number] Authorized 05/04/2024 10/16/2099 999 999 Encounter Details Date Type Department Care Team (Latest Contact Info) Description 06/29/2024 11:30 AM EDT Hem/Onc Treatment Hematology/Oncolog y Treatment, [address] [address] Verna, Chair 11 [address] [place] [address] Malignant neoplasm of sigmoid colon (HCC)*; Encounter [...] Sprays into each nostril in the morning. [place] hand to apply. 16 g 3 11/25/2023 [...] Description 07/27/2024 8:00 AM EDT Imaging Radiology [address] 132 [facility] [place] [address] 07/28/2024 9:40 AM EDT Office Visit Family Practice [facility] 200 [facility] [place] [address] Buddy Patel III, MD 200 [facility] [place] [address] 08/02/2024 9:10 AM EDT Laboratory Laboratory [facility] 200 [facility] [place] [phone] Verna Lab [address] [place] [address] 08/03/2024 9:00 AM EDT Office Visit Hematology/Oncology [facility] 200 [facility] [place] [phone] Anahy Rowan, DEJA [address] [place] [id number] 08/03/2024 9:30 AM EDT Hem/Onc Treatment Hematology/Oncology Treatment, [place] 200 [facility] [address] [place] [address] Verna, Chair 11 Hem Onc [address] [place] [address] Health Maintenance Due Date Last Done Comments [...] this encounter Medical Devices Implanted Type Area Podiatry Professor Device Identifier Shelf Expiration Date Model / Serial / Lot Port Implant W/8f Poly Cath - [id number] Implanted:Qty : 1 on 05/06/2023 by Leonardo Castro DO at OR [facility] Right: Chest CR BARD : PERIPHERAL VASCULAR [id number] 07/16/2024 [id number] / / [id number] documented as of this encounter Visit Diagnoses [...] mL documented in this encounter Care Teams Registered Travel Nurse Relationship Specialty Start Date End Date Buddy Patel III, MD 200 [place] [address] PCP - General Family Medicine 04/29/23 documented as of this encounter
--- OUTSIDE RECORDS SUMMARY | 2024-10-25 01:07 | External Medical Summary ---
Author Name Unknown Address Unknown Organization K09:[facility] [address] [place] [address] Laboratory Report Ordering Provider Test Date Status TEJAS TORRES 07/19/2024 11:19:40 Final Observation Date Value Abnormality Reference (Units ) Status BUN 07/19/2024 11:19:40 13 6-20 (mg/dL) Final Creatinine 07/19/2024 11:19:40 0.8 0.6-1.2 (mg/dL) Final Glomerular filtration rate/1.73 sq M.predicted [Volume Rate/Area] in Serum, Plasma or Blood by Creatinine-based formula (CKD-EPI) 07/19/2024 11:19:40 >90 >=60 (mL/min) Final eGFR is calculated based on the CKD-EPI 2020 equation. Sodium 07/19/2024 11:19:40 139 135-146 (m mol/L) Final Potassium 07/19/2024 11:19:40 4.6 3.5-5.1 (m mol/L) Final Cl 07/19/2024 11:19:40 106 98-107 (mm ol/L) Final CO2 07/19/2024 11:19:40 23 22-32 (mmo l/L) Final Anion gap 07/19/2024 11:19:40 10 7-15 (mmol /L) Final Glucose 07/19/2024 11:19:40 102 70-120 (mg /dL) Final Albumin 07/19/2024 11:19:40 2.9 Below low normal 3.8 -5.0 (g/dL) Final AST (Aspartate aminotransferase) 07/19/2024 11:19:40 30 10-50 (U/L) Fin al Alk Phos 07/19/2024 11:19:40 223 Above high normal 35 -130 (U/L) Final Bilirubin, Total 07/19/2024 11:19:40 0.5 <=1 .2 (mg/dL) Final Calcium 07/19/2024 11:19:40 8.8 8.4-10.2 ( mg/dL) Final Protein 07/19/2024 11:19:40 7.2 6.0-8.3 (g /dL) Final ALT (Alanine aminotransferase) 07/19/2024 11:19:40 11 10-50 (U/L) Jake chavez Performing Location [facility] [address] [place] [address]
--- OUTSIDE RECORDS SUMMARY | 2024-10-25 01:07 | External Medical Summary | Summary of Care ---
Author Name Unknown Organization [facility] Address [address] [place] [address] Phone [phone] Care Team Providers Care Product Promoter Retail Pet Name Role Phone Amanda BROWN MD, Buddy Britton Primary Care Provider [phone] Reason for Visit * Reason Comments Treatment Chemo pump disconnec t/port flush * Episode Based Medications (Routine) - Authorized Specialty Diagnoses / Procedures Referred By Contkim t Referred To Contact Diagnoses Malignant neoplasm of sigmoid colon (HCC) Encounter for antineoplastic chemotherapy Procedures [place] LEUCOVORIN CALCIUM INJECTION [place] PALONOSETRON HCL W[place] FLUOROURACIL INJECTION [place] IRINOTECAN INJECTION [place] PANITUMUMAB INJECTION Yanet Berg MD [address] [place] [address] [place] [address] Anc Hem/Onc [address] [address] Referral ID Status Reason Start Date Expiration Date V isits Requested Visits Authorized [id number] Authorized 05/04/2024 10/16/2099 999 999 Encounter Details Date Type Department Care Team (Latest Contact Info) Description 07/22/2024 2:00 PM EDT Immunization/ Injection Hematology/Oncology Treatment, [address] [address] Verna, Chair [address] [place] [address] Malignant neoplasm of sigmoid colon (HCC)*; Encounter for antineoplastic chemotherapy; Encounter for adjust and management of unsp implanted device Allergies No known active allergiesdocumented as of this encounter (statuses as of 07/22/2024) Medications Medication Sig Dispensed Refills Start Date [...] Sprays into each nostril in the morning. [place] hand to apply. 16 g 3 11/25/2023 [...] as of this encounter (statuses as of 07/22/2024) Active Problems Problem Noted Date Diagnosed Date Metastatic colon cancer to liver 11/25/2023 Protein-calorie malnutrition 08/07/2023 Malignant neoplasm of sigmoid colon 04/22/2023 Encounter for antineoplastic chemotherapy 2022 documented as of this encounter (statuses as of 07/22/2024) Immunizations Name Administration Dates Next Due Pneumococcal [...] of this encounter Nursing Notes * Patricia Bullard, RN - 07/22/2024 2:00 PM EDT Patient [...] Description 07/27/2024 8:00 AM EDT Imaging Radiology [address], [place] 132 [facility] [place] [address] 07/28/2024 9:40 AM EDT Office Visit Family Practice [facility] [place] 200 [facility] [place] [address] Buddy Patel III, MD 200 [facility] [place] [address] 08/02/2024 9:10 AM EDT Laboratory Laboratory [facility] [place] 200 [place] [address] Verna, Lab [facility] 200 [facility] [place] [address] 08/03/2024 9:00 AM EDT Office Visit Hematology/Oncology [facility] [place] [address] [place] [phone] Anahy Rowan CRNP [address] [place], [place] [address] [address] 08/03/2024 9:30 AM EDT Hem/Onc Treatment Hematology/Oncology Treatment, [place] [address] [facility] [address] [place] [phone] Verna, Chair [address] [place] [address] Health Maintenance Due Date Last Done Comments [...] this encounter Medical Devices Implanted Type Area Electronic Service Technician Device Identifier Shelf Expiration Date Model / Serial / Lot Port Implant W/8f Poly Cath - [id number] Implanted:Qty : 1 on 05/06/2023 by Leonardo Castro DO at OR [facility] Right: Chest CR BARD : PERIPHERAL VASCULAR [id number] 07/16/2024 [id number] / / [id number] documented as of this encounter Visit Diagnoses Diagnosis Malignant neoplasm of sigmoid colon (HCC)- Primary Malignant neoplasm of sigmoid colon Encounter for antineoplastic chemotherapy Encounter for adjust and management of unsp implanted device documented in this encounter Administered Medications Active Administered Medications - up to 3 most recent administrations Medication Order MAR Action Action Date Dose Rate Site hEParin 100 UNIT/ML Lock Flush inj 500 Units 500 Units (5 mL), IV Lock, PRN Other, IV Flush, Starting on Thu07/22/24 at 1410, Until 07/23/24 at 1409, For 24 hours, Do not flush if lock, PICC, or central line not in place; IV infusing or unable to flush. Given 07/22/2024 2:10 PM EDT 500 Units sodium chloride 0.9 % flush central line 10 mL 10 mL, IV Push, PRN Other, IV Flush, Starting on Thu07/22/24 at 1410, Until 07/23/24 at 1409, For 24 hours, Do not flush if lock, PICC, or central line not in place; IV infusing or unable to flush. Given 07/22/2024 2:10 PM EDT 10 mL documented in this encounter Care Teams Product Promoter Retail Pet Relationship Specialty Start Date End Date Buddy Patel III, MD 200 [place] [address] PCP - General Family Medicine 04/29/23 documented as of this encounter
--- OUTSIDE RECORDS SUMMARY | 2024-10-25 01:07 | External Medical Summary | Summary of Care ---
Author Name Unknown Organization [facility] Address [address] [place] [address] Phone [phone] Care Team Providers Care Animal Physiology Teacher Name Role Phone Amanda BROWN MD, Buddy Britton Primary Care Provider [phone] Reason for Visit * Reason Comments Outpatient Testing Encounter Details Date Type Department Care Team (Late st Contact Info) Description 07/19/2024 11:15 AM EDT Laboratory Laboratory [facility] [address] [place] [address] [facility] [address] [place], [place] [phone] Metastatic colon cancer to liver (HCC) Allergies No known active allergiesdocumented as of this encounter (statuses as of 07/19/2024) Medications Medication Sig Dispensed Refills Start Date [...] Sprays into each nostril in the morning. [place] hand to apply. 16 g 3 11/25/2023 [...] as of this encounter (statuses as of 07/19/2024) Active Problems Problem Noted Date Diagnosed Date Metastatic colon cancer to liver 11/25/2023 Protein-calorie malnutrition 08/07/2023 Malignant neoplasm of sigmoid colon 04/22/2023 Encounter for antineoplastic chemotherapy 2022 documented as of this encounter (statuses as of 07/19/2024) Immunizations Name Administration Dates Next Due Pneumococcal [...] Care Team (Late st Contact Info) Description 07/20/2024 12:30 PM EDT Hem/Onc Treatment Hematology/Oncology Treatment, [place] 200 [facility] [place] [phone] Verna, Chair [address] Hem On[address] [place] [address] 07/27/2024 8:00 AM EDT Imaging Radiology [address], [place] [address] [place] [address] 07/28/2024 9:40 AM EDT Office Visit Family Practice [facility] Verna [address] [place] [address] Buddy Patel III, MD 200 [facility] [place] [address] 08/03/2024 9:00 AM EDT Office Visit Hematology/Oncology [facility] Verna [address] [place] [phone] Anahy Rowan CRNP [address] [place] [address] Pending Results Name Type Priority Associated Diagnoses Date /Time COMPREHENSIVE METABOLIC PANEL Lab STAT Metastatic colon cancer to liver (HCC) 07/19/2024 11:19 AM EDT MAGNESIUM Lab STAT Metastatic colon cancer to liver (HCC) 07/19/2024 11:19 AM EDT Health Maintenance Due Date Last Done Comments COVID-19 Vaccine (#1) 1968 HIV Screening 1978 Hepatitis C Screening 1981 DTap/Tdap Vaccines (1 - Tdap) 1982 Zoster Vaccines (1 of 2) 1982 Cologuard 2008 Fecal Occult Blood Test 2008 Sigmoidoscopy 2008 Influenza Vaccine (FLU shot) (#1) 2024 Depression Screening 08/07/2024 08/07/2023 Diabetes Screening 07/12/2027 07/12/2024, 0 06/28/2024, 06/21/2024, Additional history exists Lipid Panel 12/01/2028 12/01/2023, [...] this encounter Medical Devices Implanted Type Area Plaster And Stucco Worker Device Identifier Shelf Expiration Date Model / Serial / Lot Port Implant W/8f Poly Cath - [id number] Implanted:Qty : 1 on 05/06/2023 by Leonardo Castro DO at OR [facility] Right: Chest CR BARD : PERIPHERAL VASCULAR [id number] 07/16/2024 [id number] / / [id number] documented as of this encounter Procedures Procedure Name Priority Date/Time Associated Diagnosis Comments DIFFERENTIAL, AUTOMATED STAT 07/19/2024 11:19 AM EDT Metastatic colon cancer to liver (HCC) CBC STAT 07/19/2024 11:19 AM EDT Metastatic colon cancer to liver (HCC) CBC STAT 07/19/2024 11:19 AM EDT Metastatic colon cancer to liver (HCC) documented in this encounter Results * (ABNORMAL) DIFFERENTIAL, AUTOMATED (07/19/2024 11:19 AM EDT) WBC 7.73 4.00 - 10.80 K/uL 07/19/2024 11:24 AM EDT [facility] 56[facility]02 Neutrophils % 72.0 40.0 - 75.0 % 07/19/2024 11:24 AM EDT [facility] 56-02 Lymphocytes % 17.3(L) 18.0 - 42.0 % 07/19/2024 11:24 AM EDT [facility] 56-02 Monocytes % 9.6 1.0 - 11.0 % 07/19/2024 11:24 AM EDT [facility] 56-02 Eosinophils % 1.0 0.0 - 6.0 % 07/19/2024 11:24 AM EDT [facility] 56-02 Basophils % 0.1 0.0 - 2.0 % 07/19/2024 11:24 AM EDT [facility] 56-02 Absolute Neutrophils 5.56 1.80 - 7.70 K/uL 07/19/2024 11:24 AM EDT [facility] 56-02 Absolute Lymphocytes 1.34 1.00 - 4.80 K/ul 07/19/2024 11:24 AM EDT [facility] 56-02 Absolute Monocytes 0.74 0.00 - 1.10 K/uL 07/19/2024 11:24 AM EDT [facility] 56-02 Absolute Eosinophils 0.08 0.00 - 0.70 K/uL 07/19/2024 11:24 AM EDT [facility] 56-02 Absolute Basophils 0.01 0.00 - 0.20 K/uL 07/19/2024 11:24 AM EDT [facility] 56-02 Blood Venous blood specimen / Unknown Venipuncture / Unknown 07/19/2024 11:19 AM EDT 07/19/2024 11:19 AM EDT Yanet Berg MD LAB BLOOD [facility] 56 [address] [place] [address] * (ABNORMAL) CBC (07/19/2024 11:19 AM EDT) WBC 7.73 4.00 - 10.80 K/uL 07/19/2024 11:24 AM EDT [address] RBC 4.22 4.50 - 5.25 M/uL 07/19/2024 11:24 AM EDT [place] [address] HGB 10.5(L) 14.0 - 16.8 g/dL 07/19/2024 11:24 AM EDT [address] HCT 34.7(L) 40.0 - 48.4 % 07/19/2024 11:24 AM EDT [address] MCV 82.2 82.0 - 99.5 fL 07/19/2024 11:24 AM EDT [address] MCH 24.9 27.0 - 34.0 pg 07/19/2024 11:24 AM EDT [place] [address] MCHC 30.3 32.0 - 36.0 g/dL 07/19/2024 11:24 AM EDT [place] [address] RDW 20.1 11.5 - 15.5 % 07/19/2024 11:24 AM EDT [address] PLT 279 140 - 400 K/uL 07/19/2024 11:24 AM EDT [place] [address] MPV 12.5 6.6 - 11.1 fL 07/19/2024 11:24 AM EDT [facility] Blood Venous blood specimen / Unknown Venipuncture / Unknown 07/19/2024 11:19 AM EDT 07/19/2024 11:19 AM EDT Yanet Berg MD LAB BLOOD [facility] [address] [facility] [place] [address] documented in this encounter Visit Diagnoses Diagnosis Metastatic colon cancer to liver (HCC) Malignant neoplasm of colon, unspecified site documented in this encounter Care Teams Animal Physiology Teacher Relationship Specialty Start Date End Date Buddy Patel III, MD 200 [place] [address] PCP - General Family Medicine 04/29/23 documented as of this encounter
--- OUTSIDE RECORDS SUMMARY | 2024-10-25 01:07 | External Medical Summary | Summary of Care ---
Author Name Unknown Organization [facility] Address [address] [place] [address] Phone [phone] Care Team Providers Care Superintendent Division Name Role Phone Amanda BROWN MD, Buddy Britton Primary Care Provider [phone] Reason for Visit * Reason Comments Treatment Chemo pump disconnec t/port flush * Episode Based Medications (Routine) - Authorized Specialty Diagnoses / Procedures Referred By Contkim t Referred To Contact Diagnoses Malignant neoplasm of sigmoid colon (HCC) Encounter for antineoplastic chemotherapy Procedures NM LEUCOVORIN CALCIUM INJECTION NM PALONOSETRON HCL NM FLUOROURACIL INJECTION NM IRINOTECAN INJECTION NM PANITUMUMAB INJECTION Yanet Berg MD [address] [place] [address] [place] [id number] Anc Hem/Onc [address] [phone] Referral ID Status Reason Start Date Expiration Date V isits Requested Visits Authorized [id number] Authorized 05/04/2024 10/16/2099 999 [id number] Encounter Details Date Type Department Care Team (Latest Contact Info) Description 07/22/2024 2:00 PM EDT Immunization/ Injection Hematology/Oncology Treatment, [address] [address] Verna, Chair 9 Hem Onc [address] [place] [id number] Malignant neoplasm of sigmoid colon (HCC)*; [...] Sprays into each nostril in the morning. [place] hand to apply. 16 g 3 11/25/2023 [...] Description 07/27/2024 8:00 AM EDT Imaging Radiology [address], [place] 132 [facility] [place] [address] 07/28/2024 9:40 AM EDT Office Visit Family Practice [facility] [place] 200 [facility] [place] [address] Buddy Patel III, MD 200 [facility] [place] [address] 08/02/2024 9:10 AM EDT Laboratory Laboratory [facility] [place] 200 [place] [phone] Verna, Lab [facility] 200 [facility] [place] [address] 08/03/2024 9:00 AM EDT Office Visit Hematology/Oncology [facility] [place] [address] [place] [phone] Anahy Rowan CRNP [address] [place], [place] [address] [address] 08/03/2024 9:30 AM EDT Hem/Onc Treatment Hematology/Oncology Treatment, [place] [address] [facility] [address] [place] [phone] Verna, Chair 11 Hem Onc [address] [place] [address] Health Maintenance Due Date Last Done Comments [...] this encounter Medical Devices Implanted Type Area Smoking Pipes Cleaner Device Identifier Shelf Expiration Date Model / Serial / Lot Port Implant W/8f Poly Cath - [id number] Implanted:Qty : 1 on 05/06/2023 by Leonardo Castro DO at OR [facility] Right: Chest CR BARD : PERIPHERAL VASCULAR [id number] 07/16/2024 [id number] / / [id number] documented as of this encounter Visit Diagnoses [...] mL documented in this encounter Care Teams Superintendent Division Relationship Specialty Start Date End Date Buddy Patel III, MD 200 [place] [address] PCP - General Family Medicine 04/29/23 documented as of this encounter
--- OUTSIDE RECORDS SUMMARY | 2024-10-25 01:07 | External Medical Summary ---
Author Name Unknown Address Unknown Organization [facility] [place] [address] Laboratory Report Ordering Provider Test Date Status TEJAS TORRES 07/19/2024 11:19:40 Final Observation Date Value Abnormality Reference (Units ) Status WBC, Total 07/19/2024 11:19:40 7.73 4.00-10.8 0 (K/uL) Final RBC 07/19/2024 11:19:40 4.22 4.50-5.25 (M/uL) Final Hemoglobin 07/19/2024 11:19:40 10.5 Below low normal 14 .0-16.8 (g/dL) Final HCT 07/19/2024 11:19:40 34.7 Below low normal 40. 0-48.4 (%) Final MCV 07/19/2024 11:19:40 82.2 82.0-99.5 (fL) Final MCH 07/19/2024 11:19:40 24.9 27.0-34.0 (pg) Final MCHC 07/19/2024 11:19:40 30.3 32.0-36.0 (g/dL) Final RDW 07/19/2024 11:19:40 20.1 11.5-15.5 (%) Final Platelets 07/19/2024 11:19:40 279 140-400 (K /uL) Final MPV 07/19/2024 11:19:40 12.5 6.6-11.1 ( fL) Final Performing Location [facility] [place] [address]
--- OUTSIDE RECORDS SUMMARY | 2024-10-25 01:07 | External Medical Summary | Summary of Care ---
Author Name Unknown Organization [facility] Address [address] [place] [address] Phone [phone] Care Team Providers Care Senior Backup Administrator Name Role Phone Amanda BROWN MD, Buddy Britton Primary Care Provider [phone] Reason for Visit * Reason Comments Procedure Pump d/c * Episode Based Medications (Routine) - Authorized Specialty Diagnoses / Procedures Referred By Yany severino Referred To Contact Diagnoses Malignant neoplasm of sigmoid colon (HCC) Encounter for antineoplastic chemotherapy Procedures [place] LEUCOVORIN CALCIUM INJECTION [place] PALONOSETRON HCL [place] FLUOROURACIL INJECTION [place] IRINOTECAN INJECTION [place] PANITUMUMAB INJECTION Yanet Berg MD [address] [place] [address] Anc Hem/Onc [address] [address] Referral ID Status Reason Start Date Expiration Date V isits Requested Visits Authorized [id number] Authorized 05/04/2024 10/16/2099 999 999 Encounter Details Date Type Department Care Team (Latest Contact Info) Description 07/01/2024 12:45 PM EDT Immunization/ Injection Hematology/Oncology Treatment, [address] [address] Malignant neoplasm of sigmoid colon (HCC)*; Encounter for antineoplastic chemotherapy Allergies No known active allergiesdocumented as of this encounter (statuses as of 2024) Medications Medication Sig Dispensed Refills Start Date [...] into each nostril in the morning. [place] hand to apply. 16 g 3 11/25/2023 [...] as of this encounter (statuses as of 2024) Active Problems Problem Noted Date Diagnosed Date Metastatic colon cancer to liver 11/25/2023 Protein-calorie malnutrition 08/07/2023 Malignant neoplasm of sigmoid colon 04/22/2023 Encounter for antineoplastic chemotherapy 2022 documented as of this encounter (statuses as of 2024) Immunizations Name Administration Dates Next Due Pneumococcal [...] as of this encounter Nursing Notes * Victoria Botello RN - 07/01/2024 1:02 PM EDT Chair 7. Patient arrived today s/p 46 hours of 5FU infusion. Port flushed with NSS, blood return noted, and port locked with Heparin. Port needle removed. Patient left facility today in stable condition and denied further needs at this time. documented in this encounter Plan of Treatment Upcoming Encounters Date Type Department Care Team (Late st Contact Info) Description 07/27/2024 8:00 AM EDT Imaging Radiology [address], [address] [place] [address] 07/28/2024 9:40 AM EDT Office Visit Family Practice [facility] [place] 200 [facility] [place] [address] Buddy Patel III, MD 200 [facility] [place] [address] 08/02/2024 9:10 AM EDT Laboratory Laboratory [facility] [place] 200 [facility] [place] [phone] Verna, Lab [facility] 200 [facility] [place] [address] 08/03/2024 9:00 AM EDT Office Visit Hematology/Oncology [facility] [place] [address] [place] [phone] Anahy Rowan CRNP [address] [place] [address] 08/03/2024 9:30 AM EDT Hem/Onc Treatment Hematology/Oncology Treatment, [place] [address] [facility] [address] [place] [address] Verna, Chair 11 Hem Onc [address] [place] [address] Health Maintenance Due Date Last Done Comments [...] this encounter Medical Devices Implanted Type Area Heat Plant Specialist Device Identifier Shelf Expiration Date Model / Serial / Lot Port Implant W/8f Poly Cath - [id number] Implanted:Qty : 1 on 05/06/2023 by Leonardo Castro DO at OR [facility] Right: Chest CR BARD : PERIPHERAL VASCULAR [id number] 07/16/2024 [id number] / / [id number] documented as of this encounter Visit Diagnoses [...] Lock, PRN Other, IV Flush, Starting on Thu07/01/24 at 1248, Until Thu07/01/24 at 1704, For 24 hours, Do not flush if lock, PICC, or central line not in place; IV infusing or unable to flush. Given 07/01/2024 12:51 PM EDT 500 Units sodium chloride 0.9 % flush central line 10 mL 10 mL, IV Push, PRN Other, IV Flush, Starting on Thu07/01/24 at 1248, Until Thu07/01/24 at 1704, For 24 hours, Do not flush if lock, PICC, or central line not in place; IV infusing or unable to flush. Given 07/01/2024 12:51 PM EDT 10 mL documented in this encounter Care Teams Senior Backup Administrator Relationship Specialty Start Date End Date Buddy Patel III, MD 200 [facility] [place] [address] PCP - General Family Medicine 04/29/23 documented as of this encounter
--- OUTSIDE RECORDS SUMMARY | 2024-10-25 01:07 | External Medical Summary | Summary of Care ---
Author Name Unknown Organization [facility] Address [address] [place] [address] Phone [phone] Care Team Providers Care Field Administrator Name Role Phone Amanda BROWN MD, Buddy Britton Primary Care Provider [phone] Reason for Visit * Reason Comments Chemotherapy vectibix, leucovorin , irinotecan, 5fu. * Episode Based Medications (Routine) - Authorized Specialty Diagnoses / Procedures Referred By Contac t Referred To Contact Diagnoses Malignant neoplasm of sigmoid colon (HCC) Encounter for antineoplastic chemotherapy Procedures CT LEUCOVORIN CALCIUM INJECTION CT PALONOSETRON HCL CT FLUOROURACIL INJECTION CT IRINOTECAN INJECTION CT PANITUMUMAB INJECTION Yanet Berg MD [address] [place] [address], [place] [address] Anc Hem/Onc [facility] Verna [address] [place] [phone] Referral ID Status Reason Start Date Expiration Date V isits Requested Visits Authorized [id number] Authorized 05/04/2024 10/16/2099 999 999 Encounter Details Date Type Department Care Team (Latest Contact Info) Description 06/29/2024 11:30 AM EDT Hem/Onc Treatment Hematology/Oncolog y Treatment, [address] [address] Verna, Chair 11 Hem On[address] [place] [address] Malignant neoplasm of sigmoid colon (HCC)*; Encounter [...] Sprays into each nostril in the morning. [place] hand to apply. 16 g 3 11/25/2023 [...] Description 07/27/2024 8:00 AM EDT Imaging Radiology [address] 132 [facility] [place] [address] 07/28/2024 9:40 AM EDT Office Visit Family Practice [facility] 200 [facility] [place] [address] Buddy Patel III, MD 200 [facility] [place] [address] 08/02/2024 9:10 AM EDT Laboratory Laboratory [facility] 200 [facility] [place] [phone] Verna Lab [address] [place] [address] 08/03/2024 9:00 AM EDT Office Visit Hematology/Oncology [facility] 200 [facility] [place] [phone] Anahy Rowan, DEJA [address] [place] [phone] 08/03/2024 9:30 AM EDT Hem/Onc Treatment Hematology/Oncology Treatment, [place] [address] [facility] [address] [place] [address] Verna, Chair 11 Hem Onc [address] [place] [address] Health Maintenance Due Date Last Done Comments [...] this encounter Medical Devices Implanted Type Area Keg Header Device Identifier Shelf Expiration Date Model / Serial / Lot Port Implant W/8f Poly Cath - [id number] Implanted:Qty : 1 on 05/06/2023 by Leonardo Castro DO at OR [facility] Right: Chest CR BARD : PERIPHERAL VASCULAR [id number] 07/16/2024 [id number] / / [id number] documented as of this encounter Visit Diagnoses [...] documented in this encounter Care Teams Field Administrator Relationship Specialty Start Date End Date Buddy Patel III, MD 200 [place] [address] PCP - General Family Medicine 04/29/23 documented as of this encounter
--- OUTSIDE RECORDS SUMMARY | 2024-10-25 01:07 | External Medical Summary | Summary of Care ---
Author Name Unknown Organization [facility] Address [address] [place] [address] Phone [phone] Care Team Providers Care Weaver Needle Loom Name Role Phone Amanda BROWN MD, Buddy Britton Primary Care Provider [phone] Reason for Visit * Reason Comments Treatment Chemo pump disconnec t/port flush * Episode Based Medications (Routine) - Authorized Specialty Diagnoses / Procedures Referred By Contkim t Referred To Contact Diagnoses Malignant neoplasm of sigmoid colon (HCC) Encounter for antineoplastic chemotherapy Procedures [place] LEUCOVORIN CALCIUM INJECTION [place] PALONOSETRON HCL [place] FLUOROURACIL INJECTION [place] IRINOTECAN INJECTION [place] PANITUMUMAB INJECTION Yanet Berg MD [address] [place] [address] [place] [address] Anc Hem/Onc [address] [address] Referral ID Status Reason Start Date Expiration Date V isits Requested Visits Authorized [id number] Authorized 05/04/2024 10/16/2099 999 999 Encounter Details Date Type Department Care Team (Latest Contact Info) Description 07/22/2024 2:00 PM EDT Immunization/ Injection Hematology/Oncology Treatment, [address] [address] Verna, Chair [address] Hem [address] [place] [address] Malignant neoplasm of sigmoid colon (HCC)*; [...] Sprays into each nostril in the morning. [place] hand to apply. 16 g 3 11/25/2023 [...] Description 07/27/2024 8:00 AM EDT Imaging Radiology [address], [place] 132 [facility] [place] [address] 07/28/2024 9:40 AM EDT Office Visit Family Practice [facility] [place] 200 [facility] [place] [address] Buddy Patel III, MD 200 [facility] [place] [address] 08/02/2024 9:10 AM EDT Laboratory Laboratory [facility] [place] 200 [facility] [place] [phone] Verna, Lab [facility] 200 [facility] [place] [address] 08/03/2024 9:00 AM EDT Office Visit Hematology/Oncology [facility] [place] [address] [place] [phone] Anahy Rowan CRNP [address] [place], [place] [address] [address] 08/03/2024 9:30 AM EDT Hem/Onc Treatment Hematology/Oncology Treatment, [place] [address] [facility] [address] [place] [phone] Verna, Chair 11 Hem Onc [address] [place] [address] Health Maintenance Due Date Last Done Comments [...] this encounter Medical Devices Implanted Type Area Box Maker Device Identifier Shelf Expiration Date Model / Serial / Lot Port Implant W/8f Poly Cath - [id number] Implanted:Qty : 1 on 05/06/2023 by Leonardo Castro DO at OR [facility] Right: Chest CR BARD : PERIPHERAL VASCULAR [id number] 07/16/2024 [id number] / / [id number] documented as of this encounter Visit Diagnoses [...] mL documented in this encounter Care Teams Weaver Needle Loom Relationship Specialty Start Date End Date Buddy Patel III, MD 200 [place] [address] PCP - General Family Medicine 04/29/23 documented as of this encounter
--- OUTSIDE RECORDS SUMMARY | 2024-10-25 01:07 | External Medical Summary | Summary of Care ---
Author Name Unknown Organization [facility] Address [address] [place] [address] Phone [phone] Care Team Providers Care Chairman & Chief Executive Officer Name Role Phone Amanda BROWN MD, Buddy Britton Primary Care Provider [phone] Reason for Visit * Reason Comments Chemotherapy Day 1 cycle 4 vertib ix/folfiri * Episode Based Medications (Routine) - Authorized Specialty Diagnoses / Procedures Referred By Yany t Referred To Contact Diagnoses Malignant neoplasm of sigmoid colon (HCC) Encounter for antineoplastic chemotherapy Procedures WY LEUCOVORIN CALCIUM INJECTION WY PALONOSETRON HCL WY FLUOROURACIL INJECTION WY IRINOTECAN INJECTION WY PANITUMUMAB INJECTION Yanet Berg MD 200 [place] [address] Anc Hem/Onc [address] [address] Referral ID Status Reason Start Date Expiration Date V isits Requested Visits Authorized [id number] Authorized 05/04/2024 10/16/2099 999 999 Encounter Details Date Type Department Care Team (Latest Contact Info) Description 07/20/2024 12:30 PM EDT Hem/Onc Treatment Hematology/Oncolog y Treatment, [address] [address] Verna, Chair 5 Hem Onc [address] [place] [address] Malignant neoplasm of sigmoid colon (HCC)*; Encounter for antineoplastic chemotherapy Allergies No known active allergiesdocumented as of this encounter (statuses as of 07/20/2024) Medications Medication Sig Dispensed Refills Start Date [...] Sprays into each nostril in the morning. [place] hand to apply. 16 g 3 11/25/2023 [...] as of this encounter (statuses as of 07/20/2024) Active Problems Problem Noted Date Diagnosed Date Metastatic colon cancer to liver 11/25/2023 Protein-calorie malnutrition 08/07/2023 Malignant neoplasm of sigmoid colon 04/22/2023 Encounter for antineoplastic chemotherapy 2022 documented as of this encounter (statuses as of 07/20/2024) Immunizations Name Administration Dates Next Due Pneumococcal [...] Care Team (Late st Contact Info) Description 07/22/2024 2:00 PM EDT Immunization/Injecti on Hematology/Oncology Treatment, [place] [address] [place] [phone] [place], Chair 9 Hem Onc [facility] [address] [facility] [place] [address] 07/27/2024 8:00 AM EDT Imaging Radiology [facility] 1st [facility], [place] [address] [facility] [address] 07/28/2024 9:40 AM EDT Office Visit Family Practice [facility] [place] [address] [facility] [place] [address] Buddy Patel III, MD [address] [facility] [place] [address] 08/02/2024 9:10 AM EDT Laboratory Laboratory [facility] [place] [address] [facility] [place] [phone] Verna, Lab [facility] [address] [facility] [place] [address] 08/03/2024 9:00 AM EDT Office Visit Hematology/Oncology [facility] [place] [address] [facility] [place] [phone] Anahy Rowan CRNP [address] [place] [address] [id number] 08/03/2024 9:30 AM EDT Hem/Onc Treatment Hematology/Oncology Treatment, [place] [address] [place] [address] Verna, Chair 11 Hem Onc [address] [address] [facility] [address] Health Maintenance Due Date Last Done Comments [...] this encounter Medical Devices Implanted Type Area Camp Head Counselor Device Identifier Shelf Expiration Date Model / Serial / Lot Port Implant W/8f Poly Cath - [id number] Implanted:Qty : 1 on 05/06/2023 by Leonardo Castro DO at OR [facility] Right: Chest CR BARD : PERIPHERAL VASCULAR [id number] 07/16/2024 [id number] / / [id number] documented as of this encounter Visit Diagnoses [...] ONCE PRN Other, Hypersensitivity Reaction, Starting on Thu07/20/24 at 1238, Until Marcela 07/21/24 at 1237, For 24 hours EPINEPHrine 1 MG/ML inj 0.3 mg 0.3 mg, Intramuscular, ONCE PRN Other, Hypersensitivity Reaction or Anaphylaxis, Starting on Thu07/20/24 at 1238, Until Marcela 07/21/24 at 1237, For 24 hours hEParin 100 UNIT/ML Lock Flush inj 500 Units 500 Units (5 mL), IV Lock, PRN Other, IV Flush, Starting on Thu07/20/24 at 1238, Until Marcela 07/21/24 at 1237, For 24 hours, Do not flush if lock, PICC, or central line not in place; IV infusing or unable to flush. Hydrocortisone Sod Suc (PF) (Solu-Cortef) inj 100 mg 100 mg, IV Push, ONCE PRN Other, Hypersensitivity Reaction, Starting on Thu07/20/24 at 1238, Until Marcela 07/21/24 at 1237, For 24 hours LORAzepam (Ativan) tab 0.5 mg 0.5 mg, Oral, ONCE PRN Anxiety, Nausea, Starting on Thu07/20/24 at 0830, Until Discontinued NSS infusion Intravenous, at 50 mL/hr, PRN, Starting on Thu07/20/24 at 0830, Until Discontinued, Maintenance line Start Infusion 07/20/2024 12:45 PM EDT 50 mL/hr oxygen GAS Inhalation, OXYGEN, First dose on Thu07/20/24 at 1600, Until Discontinued, Device/Managed by: Low [...] Push, PRN Other, IV Flush, Starting on Thu07/20/24 at 1238, Until Marcela 07/21/24 at 1237, For 24 hours, Do not flush if lock, PICC, or central line not in place; IV infusing or unable to flush. Inactive Administered Medications - up to 3 [...] 2:23 PM EDT 800 mg 170 mL/hr Palonosetron (Aloxi) inj SOLN 0.25 mg 0.25 mg, IV Push, ONCE, On Thu07/20/24 at 1315, For 1 dose, Restricted per [facility] antiemetic guidelines Given 07/20/2024 12:47 PM [...] mL/hr documented in this encounter Care Teams Chairman & Chief Executive Officer Relationship Specialty Start Date End Date Buddy Patel III, MD 200 [place] [address] PCP - General Family Medicine 04/29/23 documented as of this encounter
--- OUTSIDE RECORDS SUMMARY | 2024-10-25 01:08 | External Medical Summary | Summary of Care ---
Author Name Unknown Organization [facility] Address [address] [place] [address] Phone [phone] Care Team Providers Care Aircraft Magneto Mechanic Name Role Phone Amanda BROWN MD, Evelyne Britton Primary Care Provider [phone] Reason for Referral * Medication Prior Authorization - Closed Specialty Diagnoses / Procedures Referred By Yany severino Referred To Contact Diagnoses Malignant neoplasm of sigmoid colon (HCC) Evelyne Franco III, MD [address] [facility] [address] [facility] [place] [address] Referral ID Status Reason Start Date Expiration Date Visits Re quested Visits Authorized [id number] Closed 999 999 Reason for Visit * Reason Onset Date Comments Medication Refill 07/04/2024 Encounter Details Date Type Department Care Team (Late st Contact Info) Description 07/04/2024 Refill Family Practice [facility] [place] [address] Evelyne Franco III, MD 200 [place] [address] Malignant neoplasm of sigmoid colon (HCC) Allergies No known active allergiesdocumented as of this encounter (statuses as of 07/13/2024) Medications Medication Sig Dispensed Refills Start Date [...] Sprays into each nostril in the morning. [place] hand to apply. 16 g 3 11/25/2023 [...] rash on face. 30 mL 06/27/2024 Active HYDROcodone-Acet aminophen 7.5-325 MG Oral TabletIndication s:Malignant neoplasm of sigmoid colon (HCC) Take 1 Tablet by mouth every 6 hours as needed for Pain, Severe. 120 Tablet 07/08/2024 Active HYDROcodone-Acet aminophen 7.5-325 MG Oral TabletIndication s:Malignant neoplasm of sigmoid colon (HCC) Take 1 Tablet by mouth every 6 hours as needed for Pain, Severe. 120 Tablet 06/03/2024 Discontinue d(Refill) documented as of this encounter (statuses as of 07/13/2024) Active Problems Problem Noted Date Diagnosed Date Metastatic colon cancer to liver 11/25/2023 Protein-calorie malnutrition 08/07/2023 Malignant neoplasm of sigmoid colon 04/22/2023 Encounter for antineoplastic chemotherapy 2022 documented as of this encounter (statuses as of 07/13/2024) Immunizations Name Administration Dates Next Due Pneumococcal [...] encounter Miscellaneous Notes * Telephone Encounter - Ariane Cunningham LPN - 07/13/2024 2:14 PM EDTSigned Prescriptions: Disp Refills HYDROcodone-Acetaminophen 7.5-325 MG Oral *120 Ta*0 Sig: Take 1 Tablet by mouth every 6 hours as needed for Pain, Severe.Authorizing Provider: EVELYNE FRANCO III----- * Telephone Encounter - Ariane Cunningham LPN - 07/13/2024 2:13 PM EDT Left message to return call. Please make patient aware of provider's message. 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 Hydrocodone does control his pain. He is trying to stay away from oxycodone due to financial situation. Please advise. * Telephone Encounter - Joseluis Whitlock assistant field hockey coach - 07/07/2024 3:27 PM EDT Pt calling to check status, warm transferred to dedicated nurse line due to previous message from PCP. Thank you, Joseluis Whitlock Founder Chairman And Chief Creative Officer I [facility] 07/07/2024,3:28 PM * Telephone Encounter - Evelyne Franco III, MD - 07/06/2024 8:34 AM EDTPending Prescriptions: Disp Refills HYDROcodone-Acetaminophen 7.5-325 MG Oral *120 Ta*0 Sig: Take 1 Tablet by mouth every 6 hours as needed for Pain, Severe. * Telephone Encounter - Evelyne Franco III, MD - 07/06/2024 8:32 AM EDT Call please just got oxycodone would not expect he would need the hydrocodone * Telephone Encounter - Mylene Jules [facility] - 07/05/2024 9:41 PM EDT Pending Prescriptions: Disp Refills HYDROcodone-Acetaminophen 7.5-325 MG Oral *120 Ta*0 Sig: Take 1 Tablet by mouth every 6 hours as needed for Pain, Severe. * Telephone Encounter - Mylene Jules [facility] - 07/05/2024 9:33 PM EDT I have reviewed the patients controlled substance dispensing history in the Prescription Drug Monitoring Program in compliance with the [place] regulations before prescribing a controlled substance. PDMP checked on 07/05/2024. Pending Prescriptions: Disp Refills HYDROcodone-Acetaminophen 7.5-325 MG Oral*120 Ta*0 Sig: Take 1 Tablet by mouth every 6 hours as needed for Pain, Severe. Last Visit: 03/02/2024 (in office), Visit date not found (telemedicine) Next Visit: 07/28/2024 Date medication was last filled: 06/03/24 Date medication is due for refill: 07/02/24 [facility] [address] [place] [address] Is this request for a controlled substance? Yes and Urine Drug Screen Not completed Toxicology results: No results found for this or any previous visit. Please approve if appropriate. Thanks, Mylene Jules [facility] Clinical Pharmacist [facility] [phone] * Telephone Encounter - Jojo Vasquez PHARM Tech - 07/05/2024 12:16 PM EDT patient calling to check on status of hydrocdone. Advised of 38 hour turn around time. Thank you, Jojo Vasquez Founder Chairman And Chief Creative Officer [facility] 07/05/2024,12:16 PM * Telephone Encounter - Guillermina Tovar CPhT - 07/04/2024 10:11 AM EDT Did you pend patient's preferred pharmacy and medication before forwarding?yes Pharmacy: [facility] [address] [place] [address] Pending Prescriptions: Disp Refills HYDROcodone-Acetaminophen 7.5-325 MG Oral*120 Ta*0 Sig: Take 1 Tablet by mouth every 6 hours as needed for Pain, Severe. Last Visit: 03/02/2024 (in office), Visit date not found (telemedicine) Next Visit: 07/28/2024 If no future appointments scheduled, and last appointment is greater than a year ago, please schedule patient for a follow-up appointment Last date the medication was ordered: 06/03/24 Is this request for a controlled substance?Yes, What was the last refill date 06/03/24 w/ quantity 120 and dosage 7.5-325 and Urine Drug Screen Not completed Urine Drug Screen:No results found for this or any previous visit. Patient Phone Numbers Labs: Lab Results Component Value Date/Time CREAT 0.7 06/28/2024 09:42 AM POTASSIUM 4.4 06/28/2024 09:42 AM LDLCALC 127 04/22/2023 01:20 PM LDLDIRECT 91 12/01/2023 08:46 AM ALT 7 (L) 06/28/2024 09:42 AM HGBA1C 6.0 (A) 04/17/2023 12:00 AM documented in this encounter Plan of Treatment Upcoming Encounters Date Type Department Care Team (Late st Contact Info) Description 07/19/2024 11:15 AM EDT Laboratory Laboratory [facility] [place] [address] [facility] [place] [phone] Verna Lab [address] [place] [address] 07/20/2024 12:30 PM EDT Hem/Onc Treatment Hematology/Oncology Treatment, [place] [address] [place] [phone] Verna, Chair 5 Hem Onc [address] [place] [address] 07/27/2024 8:00 AM EDT Imaging Radiology [address], [place] 132 [facility] [place] [address] 07/28/2024 9:40 AM EDT Office Visit Family Practice [facility] [place] [address] [place] [address] Evelyne Franco III, MD [address] [facility] [place] [address] 08/03/2024 9:00 AM EDT Office Visit Hematology/Oncology [facility] [place] [address] [facility] [place] [phone] Anahy Rowan CRNP [address] [place] [address] [place] [id number] Health Maintenance Due Date Last Done Comments [...] this encounter Medical Devices Implanted Type Area Assistant Financial Accountant Device Identifier Shelf Expiration Date Model / Serial / Lot Port Implant W/8f Poly Cath - [id number] Implanted:Qty : 1 on 05/06/2023 by Leonardo Castro, at OR [facility] Right: Chest CR BARD : PERIPHERAL VASCULAR [id number] 07/16/2024 [id number] / / [id number] documented as of this encounter Visit Diagnoses Diagnosis Malignant neoplasm of sigmoid colon (HCC) Malignant neoplasm of sigmoid colon documented in this encounter Care Teams Aircraft Magneto Mechanic Relationship Specialty Start Date End Date Evelyne Franco III, MD [address] [facility] [place], [place] [address] PCP - General Family Medicine 04/29/23 documented as of this encounter
--- OUTSIDE RECORDS SUMMARY | 2024-10-25 01:08 | External Medical Summary | Summary of Care ---
Author Name Unknown Organization [facility] Address [address] [place] [address] Phone [phone] Care Team Providers Care Shared Services Representative Name Role Phone Amanda BROWN MD, Buddy Britton Primary Care Provider [phone] Reason for Visit * Reason Onset Date Comments Test Results Lab 07/12/2024 Encounter Details Date Type Department Care Team (Late st Contact Info) Description 07/12/2024 Telephone Hematology/Oncology [facility] [place] [address] [place] [address] Yanet Berg MD [address] [place] [address] Test Results Lab Allergies No known active allergiesdocumented as of this encounter (statuses as of 07/12/2024) Medications Medication Sig Dispensed Refills Start Date [...] Sprays into each nostril in the morning. [place] hand to apply. 16 g 3 11/25/2023 [...] as of this encounter (statuses as of 07/12/2024) Active Problems Problem Noted Date Diagnosed Date Metastatic colon cancer to liver 11/25/2023 Protein-calorie malnutrition 08/07/2023 Malignant neoplasm of sigmoid colon 04/22/2023 Encounter for antineoplastic chemotherapy 2022 documented as of this encounter (statuses as of 07/12/2024) Immunizations Name Administration Dates Next Due Pneumococcal [...] Telephone Encounter - Candace Bustillos OSA - 07/12/2024 11:12 AM EDT Called pt he stated that he would need to wait until his sister was off work to see when she is avato take him to the CT Will reschedule when they call in * Telephone Encounter - Nicholas Anders RN - 07/12/2024 11:00 AM EDT Called patient, he is aware of his appointment date and time for 07/19 and 07/20. Scheduling- once CT is rescheduled please call him and notify him of the date and time. He is awarewe are moving his CT apt on 07/20. * Telephone Encounter - Dionna Alvarez OSA - 07/12/2024 10:47 AM EDT Patient returned call from Nicholas. Please contact pt at [phone]. Thank you. * Telephone Encounter - Nicholas Anders RN - 07/12/2024 10:45 AM EDT Scheduling- please reschedule [facility] at [facility] to the week after 07/20 as to not delay chemotherapy further. After discussion, this was advised and felt best. I tried calling patient to inform him that we were cancelling his chemo this week, I will inform him when he calls back but please rescheduleCT so I can inform him of the new date and time. Thank you. * Telephone Encounter - Andrew Gusman OSA - 07/12/2024 10:28 AM EDT Appointment scheduled. Mary Ann added chemo appt due to PARs being unable. * Telephone Encounter - Nicholas Anders RN - 07/12/2024 10:05 AM EDT Scheduling- please reschedule patients appointments tomorrow to 07/20, pt will need to have labs "CBCD,CMP,Mag" done the day prior @ [facility] . Ok to place patient on chair 5 that day per Ángela. Thanks! * Telephone Encounter - Nicholas Anders RN - 07/12/2024 9:56 AM EDT ----- Message from Yanet Berg MD sent at 07/12/2024 9:29 AM EDT ----- Potassium is 3.3. Prescription for potassium was sent to the pharmacy. Neutropenic. Delay next chemo scheduled for tomorrow by 1 week Tried calling patient as well as Miri his EC, no answer on both, LMOM with return #. I did advise that we will be delaying treatment by 1 week. documented in this encounter Plan of Treatment Upcoming Encounters Date Type Department Care Team (Late st Contact Info) Description 07/13/2024 11:00 AM EDT Office Visit Hematology/Oncology [facility] [address] [place] [phone] Anahy Rowan CRNP [address] [facility] [place] [address] 07/19/2024 12:40 PM EDT Laboratory Laboratory [facility] [address] [place] [phone] [place], Lab [address] [facility] [place] [address] 07/20/2024 10:45 AM EDT Imaging Radiology [address], [place] 132 [facility] [place] [address] 07/20/2024 12:30 PM EDT Hem/Onc Treatment Hematology/Oncology Treatment, [place] [address] [facility] [address] [address] [place] [phone] Verna, Chair 5 Hem Onc [address] [place] [address] 07/28/2024 9:40 AM EDT Office Visit Family Practice [facility] [place] [address] [facility] [place] [address] Buddy Patel III, MD [address] [facility] [place] [address] Health Maintenance Due Date Last Done Comments [...] this encounter Medical Devices Implanted Type Area Financial Brokers Device Identifier Shelf Expiration Date Model / Serial / Lot Port Implant W/8f Poly Cath - [id number] Implanted:Qty : 1 on 05/06/2023 by Leonardo Castro, at OR [facility] Right: Chest CR BARD : PERIPHERAL VASCULAR [id number] 07/16/2024 [id number] / / [id number] documented as of this encounter Care Teams Shared Services Representative Relationship Specialty Start Date End Date Buddy Patel III, MD 200 [place] [address] PCP - General Family Medicine 04/29/23 documented as of this encounter
--- OUTSIDE RECORDS SUMMARY | 2024-10-25 01:08 | External Medical Summary | Summary of Care ---
Author Name Unknown Organization [facility] Address [address] [place] [address] Phone [phone] Care Team Providers Care Bolt Header Name Role Phone Amanda BROWN MD, Buddy Britton Primary Care Provider [phone] Reason for Visit * Reason Onset Date Comments Test Results Lab 07/12/2024 Encounter Details Date Type Department Care Team (Late st Contact Info) Description 07/12/2024 Telephone Hematology/Oncology [facility] [place] 200 [facility] [place] [address] Yanet Berg MD 200 [facility] [place] [address] Test Results Lab Allergies No known active [...] Sprays into each nostril in the morning. [place] hand to apply. 16 g 3 11/25/2023 [...] call from Nicholas. Please contact pt at [phone]. Thank you. * Telephone Encounter - Nicholas Anders RN - 07/12/2024 10:45 AM EDT Scheduling- please reschedule CT at [facility] to the week after 07/20 as to [...] 07/13/2024 11:00 AM EDT Office Visit Hematology/Oncology [facility] 200 [facility] [place] [address] Anahy Rowan CRNP [address] [place] [address] 07/19/2024 12:40 PM EDT Laboratory Laboratory [facility] [place] [address] [place] [phone] Vern[place], Lab [facility] [address] [place] [address] 07/20/2024 10:45 AM EDT Imaging Radiology [facility] 1st [facility], [place] [address] [place] [address] 07/20/2024 12:30 PM EDT Hem/Onc Treatment Hematology/Oncology Treatment, [place] [address] [place] [phone] Verna, Chair 5 Hem Onc [facility] 200 [facility] [place] [address] 07/28/2024 9:40 AM EDT Office Visit Family Practice [facility] [place] 200 [facility] [place] [address] [place] IIIBuddy MD [address] [place] [address] Health Maintenance Due Date Last Done Comments [...] this encounter Medical Devices Implanted Type Area Padded Products Inspector Trimmer Device Identifier Shelf Expiration Date Model / Serial / Lot Port Implant W/8f Poly Cath - [id number] Implanted:Qty : 1 on 05/06/2023 by Leonardo Castro, at OR [facility] Right: Chest CR BARD : PERIPHERAL VASCULAR [id number] 07/16/2024 [id number] / / [id number] documented as of this encounter Care Teams Bolt Header Relationship Specialty Start Date End Date Buddy Patel III, MD 200 [place] [address] PCP - General Family Medicine 04/29/23 documented as of this encounter
--- OUTSIDE RECORDS SUMMARY | 2024-10-25 01:08 | External Medical Summary | Summary of Care ---
Author Name Unknown Organization [facility] Address [address] [place] [address] Phone [phone] Care Team Providers Care Stevedoring Supervisor Name Role Phone Amanda BROWN MD, Buddy Britton Primary Care Provider [phone] Reason for Visit * Reason Onset Date Comments Test Results Lab 07/12/2024 Appointment 07/12/2024 Encounter Details Date Type Department Care Team (Late st Contact Info) Description 07/12/2024 Telephone Hematology/Oncology [facility] [place] 200 [facility] [place] [address] Yanet Berg MD 200 [facility] [place] [address] Test Results Lab; Appointment Allergies No known active allergiesdocumented as of [...] Sprays into each nostril in the morning. [place] hand to apply. 16 g 3 11/25/2023 [...] encounter Miscellaneous Notes * Telephone Encounter - Adriel Felipe OSA - 07/12/2024 12:44 PM EDT Patient's sister calling in to go over appointments. Per Sister ; the CT Scan should be moved until after his next Infusion. * Telephone Encounter - Candace Bustillos OSA [...] call from Nicholas. Please contact pt at [phone]. Thank you. * Telephone Encounter - Nicholas Anders RN - 07/12/2024 10:45 AM EDT Scheduling- please reschedule CT at [facility] to the week after 07/20 as to [...] 07/13/2024 11:00 AM EDT Office Visit Hematology/Oncology [address] [place] [phone] Anahy Rowan CRNP [address] [place] [address] 07/19/2024 12:40 PM EDT Laboratory Laboratory [address] [place] [phone] [facility] Lab [address] [place] [address] 07/20/2024 10:45 AM EDT Imaging Radiology [address], [place] 132 [facility] [place] [address] 07/20/2024 12:30 PM EDT Hem/Onc Treatment [facility]ology[facility], [place] [facility] [phone] Verna, Chair 5 Hem Onc [address] [place] [address] 07/28/2024 9:40 AM EDT Office Visit Family Practice [facility] [address] [place] [address] Buddy Patel III, MD [address] [place] [address] [place] [address] Health Maintenance Due Date Last Done Comments [...] encounter Medical Devices Implanted Type Area Manager Building Device Identifier Shelf Expiration Date Model / Serial / Lot Port Implant W/8f Poly Cath - [id number] Implanted:Qty : 1 on 05/06/2023 by Leonardo Castro DO at OR [facility] Right: Chest CR BARD : PERIPHERAL VASCULAR [id number] 07/16/2024 [id number] / / [id number] documented as of this encounter Care Teams Stevedoring Supervisor Relationship Specialty Start Date End Date Buddy Patel III, MD [address] [place] [address] PCP - General Family Medicine 04/29/23 documented as of this encounter
--- OUTSIDE RECORDS SUMMARY | 2024-10-25 01:08 | External Medical Summary ---
Author Name Unknown Address Unknown Organization [facility] [place] [address] Laboratory Report Ordering Provider Test Date Status TEJAS TORRES 07/19/2024 11:19:40 Final Observation Date Value Abnormality Reference (Units ) Status Magnesium 07/19/2024 11:19:40 2.2 1.5-2.6 (m g/dL) Final Performing Location [facility] [place] [address]
--- OUTSIDE RECORDS SUMMARY | 2024-10-25 01:08 | External Medical Summary | Summary of Care ---
Author Name Unknown Organization [facility] Address [address] [place] [address] Phone [phone] Care Team Providers Care Wet Chemistry Analyst Name Role Phone Amanda BROWN MD, Buddy Britton Primary Care Provider [phone] Reason for Visit * Reason Onset Date Comments Test Results Lab 07/12/2024 Appointment 07/12/2024 Encounter Details Date Type Department Care Team (Late st Contact Info) Description 07/12/2024 Telephone Hematology/Oncology [facility] [place] 200 [facility] [place] [address] Yanet Berg MD 200 [facility] [place] [address] Test Results Lab; Appointment Allergies No known [...] Sprays into each nostril in the morning. [place] hand to apply. 16 g 3 11/25/2023 [...] Telephone Encounter - Nicholas Anders RN - 07/13/2024 12:[address] scheduled 07/27. * Telephone Encounter - Candace Bustillos OSA - 07/12/2024 1:02 PM EDT Pt is scheduled for the ct and is aware * Telephone Encounter - Adriel Felipe OSA [...] call from Nicholas. Please contact pt at [phone]. Thank you. * Telephone Encounter - Nicholas Anders RN - 07/12/2024 10:45 AM EDT Scheduling- please reschedule CT at [facility] to the week after 07/20 as [...] Description 07/19/2024 11:15 AM EDT Laboratory Laboratory [facility] [place] [address] [place] [address] [phone] Verna Lab [place] [address] [place] [address] [place] [address] 07/20/2024 12:30 PM EDT Hem/Onc Treatment Hematology/Oncology Treatment, [place] [address] [place] [phone] [place], Chair 5 Hem Onc [facility] [address] [place] [address] [address] 07/27/2024 8:00 AM EDT Imaging Radiology [facility], [place] 132 [facility] [place] [address] 07/28/2024 9:40 AM EDT Office Visit Family Practice [facility] [place] [address] [place] [address] [address] Amanda III, Buddy Britton MD [address] [place] [address] [address] 08/03/2024 9:00 AM EDT Office Visit Hematology/Oncology [facility] [place] [address] [place] [phone] Anahy Rowan CRNP 400 [place] [address] Health Maintenance Due Date Last Done Comments [...] this encounter Medical Devices Implanted Type Area Crew Truck Driver Device Identifier Shelf Expiration Date Model / Serial / Lot Port Implant W/8f Poly Cath - [id number] Implanted:Qty : 1 on 05/06/2023 by Leonardo Castro, DO at OR [facility] Right: Chest CR BARD : PERIPHERAL VASCULAR [id number] 07/16/2024 [id number] / / [id number] documented as of this encounter Care Teams Wet Chemistry Analyst Relationship Specialty Start Date End Date Buddy Patel III, MD 200 [place] [address] PCP - General Family Medicine 04/29/23 documented as of this encounter
--- OUTSIDE RECORDS SUMMARY | 2024-10-25 01:08 | External Medical Summary ---
Author Name Unknown Address Unknown Organization [facility] [address] Laboratory Report Ordering Provider Test Date Status TEJAS TORRES 07/19/2024 11:19:40 Final Observation Date Value Abnormality Reference (Units ) Status SYNC LEUKOCYTES IN BLOOD BY AUTOMATED COUNT 07/19/2024 11:19:40 7.73 4.00-10.80 (K/uL) Final Segs 07/19/2024 11:19:40 72.0 40.0-75.0 (%) Final Lymphs % 07/19/2024 11:19:40 17.3 Below low normal 18.0-42.0 (%) Final Monos 07/19/2024 11:19:40 9.6 1.0-11.0 (%) Final Eosinophils 07/19/2024 11:19:40 1.0 0.0-6.0 (%) Final Basos 07/19/2024 11:19:40 0.1 0.0-2.0 (%) Final Absolute Segs 07/19/2024 11:19:40 5.56 1.80-7.70 (K/uL) Final Lymphs, absolute 07/19/2024 11:19:40 1.34 1.00-4.80 (K/ul) Final Monos, Abs 07/19/2024 11:19:40 0.74 0.00-1.10 (K/uL) Final Eos, Abs 07/19/2024 11:19:40 0.08 0.00-0.70 (K/uL) Final Basos, Abs 07/19/2024 11:19:40 0.01 0.00-0.20 (K/uL) Final Performing Location [facility] [address]
--- OUTSIDE RECORDS SUMMARY | 2024-10-25 01:08 | External Medical Summary | Summary of Care ---
Author Name Unknown Organization [facility] Address [address] [place] [address] Phone [phone] Care Team Providers Care Plastic Surgery Coordinator Name Role Phone Amanda BROWN MD, Buddy Britton Primary Care Provider [phone] Reason for Visit * Reason Onset Date Comments Test Results Lab 07/12/2024 Appointment 07/12/2024 Encounter Details Date Type Department Care Team (Late st Contact Info) Description 07/12/2024 Telephone Hematology/Oncology [facility] [place] 200 [facility] [place] [address] Yanet Berg MD 200 [facility] [place] [address] Test Results Lab; Appointment Allergies No known [...] Sprays into each nostril in the morning. [place] hand to apply. 16 g 3 11/25/2023 [...] call from Nicholas. Please contact pt at [phone]. Thank you. * Telephone Encounter - Nicholas Anders RN - 07/12/2024 10:45 AM EDT Scheduling- please reschedule CT at [facility] to the week after 07/20 [...] Description 07/19/2024 11:15 AM EDT Laboratory Laboratory [facility] [place] [address] [place] [phone] Verna, Lab [address] [place] [address] 07/20/2024 12:30 PM EDT Hem/Onc Treatment Hematology/Oncology Treatment, [place] 200 [facility] [place] [phone] Verna, Chair 5 Hem Onc [address] [place] [address] 07/20/2024 1:00 PM EDT Office Visit Hematology/Oncology [facility] [address] [place] [phone] Anahy Rowan CRNP 400 [facility] [place] [address] 07/27/2024 8:00 AM EDT Imaging Radiology [address], [place] 132 [facility] [place] [address] 07/28/2024 9:40 AM EDT Office Visit Family Practice [facility] [address] [place] [address] Buddy Patel III, MD [address] [place] [address] Health Maintenance Due Date Last Done Comments [...] this encounter Medical Devices Implanted Type Area Fax Machine Repairer Device Identifier Shelf Expiration Date Model / Serial / Lot Port Implant W/8f Poly Cath - [id number] Implanted:Qty : 1 on 05/06/2023 by Leonardo Castro, at OR [facility] Right: Chest CR BARD : PERIPHERAL VASCULAR [id number] 07/16/2024 [id number] / / [id number] documented as of this encounter Care Teams Plastic Surgery Coordinator Relationship Specialty Start Date End Date Buddy Patel III, MD [address] [facility] [facility] [address] PCP - General Family Medicine 04/29/23 documented as of this encounter
--- OUTSIDE RECORDS SUMMARY | 2024-10-25 01:08 | External Medical Summary | Summary of Care ---
Author Name Unknown Organization [facility] Address [address] [place] [address] Phone [phone] Care Team Providers Care Wirer Helper Name Role Phone Amanda BROWN MD, Buddy Britton Primary Care Provider [phone] Reason for Visit * Reason Onset Date Comments Test Results Lab 07/12/2024 Encounter Details Date Type Department Care Team (Late st Contact Info) Description 07/12/2024 Telephone Hematology/Oncology [facility] [place] 200 [facility] [place] [address] Yanet Berg MD 200 [facility] [place] [address] Test Results Lab Allergies No known active [...] Sprays into each nostril in the morning. [place] hand to apply. 16 g 3 11/25/2023 [...] encounter Miscellaneous Notes * Telephone Encounter - Dionna Alvarez OSA - 07/12/2024 10:47 AM EDT Patient returned call from Nicholas. Please contact pt at [phone]. Thank you. * Telephone Encounter - Nicholas Anders RN - 07/12/2024 10:45 AM EDT Scheduling- please reschedule CT at [facility] to the week after 07/20 as [...] labs "CBCD,CMP,Mag" done the day prior @ [facility] . Ok to place patient on chair [...] 07/13/2024 11:00 AM EDT Office Visit Hematology/Oncology [facility] 200 [facility] [place] [phone] Anahy Rowan, DEJA [address] [place] [address] [place] [address] 07/19/2024 12:40 PM EDT Laboratory Laboratory [facility] Verna [place] [address] [place] [phone] Vern[place] [address] [place] [address] [address] 07/20/2024 10:45 AM EDT Imaging Radiology [address], [place] 132 [facility] [place] [address] 07/20/2024 12:30 PM EDT Hem/Onc Treatment Hematology/Oncology Treatment, [place] 200 [facility] [place] [address] Verna, Chair 5 Hem On[address] [place] [address] 07/28/2024 9:40 AM EDT Office Visit Family Practice [facility] Verna [place] 200 [facility] [place] [address] Buddy Patel III, MD 200 [facility] [place] [address] Health Maintenance Due Date Last Done Comments [...] this encounter Medical Devices Implanted Type Area Leak Detection Engineer Device Identifier Shelf Expiration Date Model / Serial / Lot Port Implant W/8f Poly Cath - [id number] Implanted:Qty : 1 on 05/06/2023 by Leonardo Castro, at OR [facility] Right: Chest CR BARD : PERIPHERAL VASCULAR [id number] 07/16/2024 [id number] / / [id number] documented as of this encounter Care Teams Wirer Helper Relationship Specialty Start Date End Date Buddy Patel III, MD 200 [facility] [address] PCP - General Family Medicine 04/29/23 documented as of this encounter
--- OUTSIDE RECORDS SUMMARY | 2024-10-25 01:09 | External Medical Summary | Summary of Care ---
Author Name Unknown Organization [facility] Address [address] [place] [address] Phone [phone] Care Team Providers Care Painting Trades Worker Name Role Phone Amanda BROWN MD, Buddy Britton Primary Care Provider [phone] Reason for Visit * Reason Onset Date Comments Test Results Lab 07/12/2024 Encounter Details Date Type Department Care Team (Late st Contact Info) Description 07/12/2024 Telephone Hematology/Oncology [facility] [place] 200 [facility] [place] [address] Yanet Berg MD 200 [facility] [place] [address] Test Results Lab Allergies No known active [...] Sprays into each nostril in the morning. [place] hand to apply. 16 g 3 11/25/2023 [...] 07/13/2024 11:00 AM EDT Office Visit Hematology/Oncology [facility] 200 [facility] [place] [phone] Anahy Rowan CRNP 400 [facility] [place] [address] 07/19/2024 12:40 PM EDT Laboratory Laboratory [address] [place] [phone] [address] [facility] [place] [address] 07/20/2024 10:45 AM EDT Imaging Radiology [address], [place] 132 [facility] [address] 07/20/2024 12:30 PM EDT Hem/Onc Treatment Hematology/Oncology Treatment, [place] [address] [facility] [address] [place] [phone] Verna, Chair 5 Hem Onc [address] [place] [address] 07/28/2024 9:40 AM EDT Office Visit Family Practice [facility] [place] 200 [facility] [place] [address] Buddy Patel III, MD 200 [facility] [place] [address] Health Maintenance Due Date Last Done Comments [...] this encounter Medical Devices Implanted Type Area Advertising Space Clerk Device Identifier Shelf Expiration Date Model / Serial / Lot Port Implant W/8f Poly Cath - [id number] Implanted:Qty : 1 on 05/06/2023 by Leonardo Castro DO at OR [facility] Right: Chest CR BARD : PERIPHERAL VASCULAR [id number] 07/16/2024 [id number] / / [id number] documented as of this encounter Care Teams Painting Trades Worker Relationship Specialty Start Date End Date Buddy Patel III, MD [address] [place] [address] PCP - General Family Medicine 04/29/23 documented as of this encounter
--- OUTSIDE RECORDS SUMMARY | 2024-10-25 01:09 | External Medical Summary | Summary of Care ---
Author Name Unknown Organization [facility] Address [address] [place] [address] Phone [phone] Care Team Providers Care Athletic Field Custodian Name Role Phone Amanda BROWN MD, Buddy Britton Primary Care Provider [phone] Encounter Details Date Type Department Care Team (Late st Contact Info) Description 07/12/2024 Orders Only Hematology/Oncology [place] 200 [facility] [place] [address] Yanet Berg MD 200 [facility] [place] [address] Allergies No known active allergiesdocumented as of [...] Sprays into each nostril in the morning. [place] hand to apply. 16 g 3 11/25/2023 [...] Department Care Team (Latest Contact Info) Description 07/12/2024 10:20 AM EDT Laboratory Laboratory [facility] [place] 200 [facility] [place] [phone] Alesha Gillespie [place] [address] [place] [address] [address] Metastatic colon cancer to liver (HCC); Malignant neoplasm of sigmoid colon (HCC) 07/13/2024 11:00 AM EDT Office Visit Hematology/Oncology [facility] [place] [address] [place] [phone] Anahy Rowan CRNP 400 [facility] [address] 07/13/2024 11:30 AM EDT Hem/Onc Treatment Hematology/Oncology Treatment, [place] [address] [place] [phone] Verna, Chair 9 Hem Onc [place] [address] [place] [address] [address] 07/20/2024 10:45 AM EDT Imaging Radiology [address], [place] 132 [facility] [place] [address] 07/28/2024 9:40 AM EDT Office Visit Family Practice [facility] [place] 200 [facility] [place] [place] [address] Buddy Patel III, MD 200 [facility] [place] [address] Health Maintenance Due Date Last Done Comments [...] this encounter Medical Devices Implanted Type Area Front Office Secretary Device Identifier Shelf Expiration Date Model / Serial / Lot Port Implant W/8f Poly Cath - [id number] Implanted:Qty : 1 on 05/06/2023 by Leonardo Castro DO at OR [facility] Right: Chest CR BARD : PERIPHERAL VASCULAR [id number] 07/16/2024 [id number] / / [id number] documented as of this encounter Care Teams Athletic Field Custodian Relationship Specialty Start Date End Date Buddy Patel III, MD [address] [place] [address] [address] PCP - General Family Medicine 04/29/23 documented as of this encounter
--- OUTSIDE RECORDS SUMMARY | 2024-10-25 01:09 | External Medical Summary | Summary of Care ---
Author Name Unknown Organization [facility] Address [address] [place] [address] Phone [phone] Care Team Providers Care Senior Qa Engineer Name Role Phone Amanda BROWN MD, Buddy Britton Primary Care Provider [phone] Reason for Visit * Reason Onset Date Comments Test Results Lab 07/12/2024 Encounter Details Date Type Department Care Team (Late st Contact Info) Description 07/12/2024 Telephone Hematology/Oncology [facility] [place] 200 [facility] [place] [address] Yanet Berg MD 200 [facility] [place] [address] Test Results Lab Allergies No known active [...] Sprays into each nostril in the morning. [place] hand to apply. 16 g 3 11/25/2023 [...] 07/13/2024 11:00 AM EDT Office Visit Hematology/Oncology [facility] 200 [facility] [place] [phone] Anahy Rowan CRNP 400 [place] [address] 07/19/2024 12:40 PM EDT Laboratory Laboratory [address] [place] [phone] [address] [facility] [place] [address] 07/20/2024 10:45 AM EDT Imaging Radiology [address], [place] 132 [facility] [address] 07/20/2024 12:30 PM EDT Hem/Onc Treatment Hematology/Oncology Treatment, [place] 200 [facility] [address] [place] [phone] Verna, Chair [address] [place] [address] 07/28/2024 9:40 AM EDT Office Visit Family Practice [facility] [place] 200 [facility] [place] [address] Buddy Patel III, MD 200 [facility] [place] [address] Health Maintenance Due Date Last Done Comments [...] this encounter Medical Devices Implanted Type Area Sales Support Coordinator Device Identifier Shelf Expiration Date Model / Serial / Lot Port Implant W/8f Poly Cath - [id number] Implanted:Qty : 1 on 05/06/2023 by Leonardo Castro DO at OR [facility] Right: Chest CR BARD : PERIPHERAL VASCULAR [id number] 07/16/2024 [id number] / / [id number] documented as of this encounter Care Teams Senior Qa Engineer Relationship Specialty Start Date End Date Buddy Patel III, MD [address] [place] [address] PCP - General Family Medicine 04/29/23 documented as of this encounter
--- OUTSIDE RECORDS SUMMARY | 2024-10-25 01:09 | External Medical Summary | Summary of Care ---
Author Name Unknown Organization [facility] Address [address] [place] [address] Phone [phone] Care Team Providers Care Deck Scaler Name Role Phone Amanda BROWN MD, Buddy Britton Primary Care Provider [phone] Reason for Visit * Reason Onset Date Comments Test Results Lab 07/12/2024 Encounter Details Date Type Department Care Team (Late st Contact Info) Description 07/12/2024 Telephone Hematology/Oncology [facility] [place] 200 [facility] [place] [address] Yanet Berg MD 200 [facility] [place] [address] Test Results Lab Allergies No known active [...] Sprays into each nostril in the morning. [place] hand to apply. 16 g 3 11/25/2023 [...] AM EDT Scheduling- please reschedule CT at [facility] to the week after 07/20 as [...] 07/13/2024 11:00 AM EDT Office Visit Hematology/Oncology [facility] 200 [facility] [place] [phone] Anahy Rowan, WASTE WATER OPERATOR 400 [facility] [place] [address] 07/19/2024 12:40 PM EDT Laboratory Laboratory [facility] 200 [facility] [place] [phone] [place], Lab [facility] 200 [facility] [place] [address] 07/20/2024 10:45 AM EDT Imaging Radiology [facility], [place] 132 [facility] [place] [address] 07/20/2024 12:30 PM EDT Hem/Onc Treatment Hematology/Oncology Treatment, [place] [address] [place] [phone] Verna, Chair 5 Hem Onc [facility] 200 [place] [place] [address] 07/28/2024 9:40 AM EDT Office Visit Family Practice [place] 200 [facility] [place] [address] Buddy Patel III, MD 200 [facility] [place] [address] Health Maintenance Due Date Last Done Comments [...] this encounter Medical Devices Implanted Type Area Post Closing Specialist Device Identifier Shelf Expiration Date Model / Serial / Lot Port Implant W/8f Poly Cath - [id number] Implanted:Qty : 1 on 05/06/2023 by Leonardo Castro, at OR [facility] Right: Chest CR BARD : PERIPHERAL VASCULAR [id number] 07/16/2024 [id number] / / [id number] documented as of this encounter Care Teams Deck Scaler Relationship Specialty Start Date End Date Buddy Patel III, MD [address] [place] [address] [address] PCP - General Family Medicine 04/29/23 documented as of this encounter
--- OUTSIDE RECORDS SUMMARY | 2024-10-25 01:09 | External Medical Summary | Summary of Care ---
Author Name Unknown Organization [facility] Address [address] [place] [address] Phone [phone] Care Team Providers Care Bleach Mixer Name Role Phone Amanda BROWN MD, Buddy Britton Primary Care Provider [phone] Encounter Details Date Type Department Care Team (Late st Contact Info) Description 07/12/2024 Orders Only Hematology/Oncology, [facility] [address] [place] [address] Yanet Berg MD 200 [place] [address] Metastatic colon cancer to liver (HCC)* Allergies [...] Sprays into each nostril in the morning. [place] hand to apply. 16 g 3 11/25/2023 [...] Severe. 120 Tablet 07/08/2024 Active Potassium Chloride Lexi ER 20 MEQ Oral Tablet Extended ReleaseIndicatio ns:Metastatic colon cancer to liver (HCC) Take 1 Tablet by mouth in the morning. 14 Tablet 07/12/2024 Discontinued documented as of this encounter (statuses [...] Description 07/12/2024 10:20 AM EDT Laboratory Laboratory [facility] [place] [address] [address] [place] [phone] Verna Lab [place] [address] [address] [facility] [place] [address] Metastatic colon cancer to liver (HCC); Malignant neoplasm of sigmoid colon (HCC) 07/13/2024 11:00 AM EDT Office Visit Hematology/Oncology [facility] [place] [address] [place] [phone] Anahy Rowan CRNP [address] [place], [place] [address] [address] 07/13/2024 11:30 AM EDT Hem/Onc Treatment Hematology/Oncology Treatment, [place] [address] [facility] [place] [place] [phone] Verna, Chair [address] Hem Onc [address] [place] [address] 07/20/2024 10:45 AM EDT Imaging Radiology [facility] 1st Floor, [place] 132 [place] [address] 07/28/2024 9:40 AM EDT Office Visit Family Practice Robin Gillespie [place] 200 [facility] [place] [address] Buddy Patel III, MD 200 [facility] [place] [address] Health Maintenance Due Date Last Done Comments [...] this encounter Medical Devices Implanted Type Area Test Rack Operator Device Identifier Shelf Expiration Date Model / Serial / Lot Port Implant W/8f Poly Cath - [id number] Implanted:Qty : 1 on 05/06/2023 by Leonardo Castro DO at OR [facility] Right: Chest CR BARD : PERIPHERAL VASCULAR [id number] 07/16/2024 [id number] / / [id number] documented as of this encounter Visit Diagnoses Diagnosis Metastatic colon cancer to liver (HCC) Malignant neoplasm of colon, unspecified site Malignant neoplasm of sigmoid colon (HCC) Malignant neoplasm of sigmoid colon Metastatic colon cancer to liver (HCC)- Primary Malignant neoplasm of colon, unspecified site documented in this encounter Care Teams Bleach Mixer Relationship Specialty Start Date End Date Buddy Patel III, MD 200 [facility] [place] [address] PCP - General Family Medicine 04/29/23 documented as of this encounter
--- OUTSIDE RECORDS SUMMARY | 2024-10-25 01:09 | External Medical Summary | Summary of Care ---
Author Name Unknown Organization [facility] Address [address] [place] [address] Phone [phone] Care Team Providers Care Fbi Special Agent Name Role Phone Amanda BROWN MD, Buddy Britton Primary Care Provider [phone] Encounter Details Date Type Department Care Team (Late st Contact Info) Description 07/12/2024 Orders Only Hematology/Oncology, [facility] 400 [place] [address] Yanet Berg MD 200 [place] [address] Metastatic colon cancer to liver [...] Sprays into each nostril in the morning. [place] hand to apply. 16 g 3 11/25/2023 [...] in the morning. 14 Tablet 07/12/2024 Active Potassium Chloride Lexi ER 20 MEQ [...] Description 07/12/2024 10:20 AM EDT Laboratory Laboratory [facility] 200 [facility] [place] [phone] Alesha Gillespie [place] [address] [place] [address] Metastatic colon cancer to liver (HCC); Malignant neoplasm of sigmoid colon (HCC) 07/13/2024 11:00 AM EDT Office Visit Hematology/Oncology [facility] [place] [address] [place] [phone] Anahy Rowan CRNP 400 [facility] [address] 07/13/2024 11:30 AM EDT Hem/Onc Treatment Hematology/Oncology Treatment, [place] [address] [facility] [address] [address] [place] [phone] Verna, Chair 9 Hem Onc [place] [address] [place] [address] 07/20/2024 10:45 AM EDT Imaging Radiology [facility] 1st [facility] [address] [place] [address] 07/28/2024 9:40 AM EDT Office Visit Family Practice [facility] 200 [facility] [place] [address] [place] IIIBuddy MD 200 [facility] [place] [address] Health Maintenance Due Date Last Done [...] this encounter Medical Devices Implanted Type Area Compound Coating Machine Offbearer Device Identifier Shelf Expiration Date Model / Serial / Lot Port Implant W/8f Poly Cath - [id number] Implanted:Qty : 1 on 05/06/2023 by Leonardo Castro, at OR [facility] Right: Chest CR BARD : PERIPHERAL VASCULAR [id number] 07/16/2024 [id number] / / [id number] documented as of this encounter Visit Diagnoses Diagnosis Metastatic colon cancer to liver (HCC) Malignant neoplasm of colon, unspecified site Malignant neoplasm of sigmoid colon (HCC) Malignant neoplasm of sigmoid colon Metastatic colon cancer to liver (HCC)- Primary Malignant neoplasm of colon, unspecified site documented in this encounter Care Teams Fbi Special Agent Relationship Specialty Start Date End Date Buddy Patel III, MD 200 [place] [address] PCP - General Family Medicine 04/29/23 documented as of this encounter
--- OUTSIDE RECORDS SUMMARY | 2024-10-25 01:09 | External Medical Summary | Summary of Care ---
Author Name Unknown Organization [facility] Address [address] [place] [address] Phone [phone] Care Team Providers Care Customs Verifier Name Role Phone Amanda BROWN MD, Buddy Britton Primary Care Provider [phone] Reason for Visit * Reason Onset Date Comments Test Results Lab 07/12/2024 Encounter Details Date Type Department Care Team (Late st Contact Info) Description 07/12/2024 Telephone Hematology/Oncology [facility] [place] 200 [place] [address] Yanet Berg MD 200 [place] [address] Test Results Lab Allergies No known active [...] Sprays into each nostril in the morning. [place] hand to apply. 16 g 3 11/25/2023 [...] 07/13/2024 11:00 AM EDT Office Visit Hematology/Oncology [facility] [place] [phone] Anahy Rowan, DEJA 400 [facility] [place] [address] 07/13/2024 11:30 AM EDT Hem/Onc Treatment Hematology[facility]Oncology Treatment, [place] 200 [facility] [phone] Verna, Chair 9 Hem On[address] [place] [address] 07/20/2024 10:45 AM EDT Imaging Radiology [address] 132 [facility] [address] 07/20/2024 12:30 PM EDT Hem/Onc Treatment Hematology/Oncology Treatment [place] 200 [facility] [phone] Verna, Chair 5 Hem Onc [address] [place] [address] 07/28/2024 9:40 AM EDT Office Visit Family Practice [facility] [place] [facility] [place] [address] Buddy Patel III, MD 200 [facility] [place] [address] Health Maintenance Due Date Last Done Comments [...] this encounter Medical Devices Implanted Type Area Oil Developer Device Identifier Shelf Expiration Date Model / Serial / Lot Port Implant W/8f Poly Cath - [id number] Implanted:Qty : 1 on 05/06/2023 by Leonardo Castro, at OR [facility] Right: Chest CR BARD : PERIPHERAL VASCULAR [id number] 07/16/2024 [id number] / / [id number] documented as of this encounter Care Teams Customs Verifier Relationship Specialty Start Date End Date Buddy Patel III, MD 200 [place] [address] PCP - General Family Medicine 04/29/23 documented as of this encounter
--- OUTSIDE RECORDS SUMMARY | 2024-10-25 01:10 | External Medical Summary ---
Author Name Unknown Address Unknown Organization K09:[facility] [place] [address] Laboratory Report Ordering Provider Test Date Status TEJAS TORRES 07/12/2024 08:24:42 Final Observation Date Value Abnormality Reference (Units ) Status WBC, Total 07/12/2024 08:24:42 2.31 Below low normal 4. 00-10.80 (K/uL) Final RBC 07/12/2024 08:24:42 3.69 4.50-5.25 (M/uL) Final Hemoglobin 07/12/2024 08:24:42 9.2 Below low normal 14 .0-16.8 (g/dL) Final HCT 07/12/2024 08:24:42 29.4 Below low normal 40. 0-48.4 (%) Final MCV 07/12/2024 08:24:42 79.7 82.0-99.5 (fL) Final MCH 07/12/2024 08:24:42 24.9 27.0-34.0 (pg) Final MCHC 07/12/2024 08:24:42 31.3 32.0-36.0 (g/dL) Final RDW 07/12/2024 08:24:42 18.7 11.5-15.5 (%) Final Platelets 07/12/2024 08:24:42 226 140-400 (K /uL) Final MPV 07/12/2024 08:24:42 12.4 6.6-11.1 ( fL) Final Performing Location [facility] [place] [address]
--- OUTSIDE RECORDS SUMMARY | 2024-10-25 01:10 | External Medical Summary | Summary of Care ---
Author Name Unknown Organization [facility] Address [address] [place] [address] Phone [phone] Care Team Providers Care Artificial Flower Maker Name Role Phone Amanda BROWN MD, Evelyne Britton Primary Care Provider [phone] Reason for Referral * Medication Prior Authorization - Closed Specialty Diagnoses / Procedures Referred By Yany severino Referred To Contact Diagnoses Malignant neoplasm of sigmoid colon (HCC) Evelyne Franco III, MD [address] [facility] [address] [place] [facility] [address] Referral ID Status Reason Start Date Expiration Date Visits Re quested Visits Authorized [id number] Closed 999 999 Reason for Visit * Reason Onset Date Comments Medication Refill 07/04/2024 Encounter Details Date Type Department Care Team (Late st Contact Info) Description 07/04/2024 Refill Family Practice [facility] 200 [facility] [place] [address] Evelyne Franco III, MD 200 [facility] [place] [address] Malignant neoplasm of sigmoid colon (HCC) Allergies No known active allergiesdocumented as of this encounter (statuses as of 07/08/2024) Medications Medication Sig Dispensed Refills Start Date [...] Sprays into each nostril in the morning. [place] hand to apply. 16 g 3 11/25/2023 [...] as of this encounter (statuses as of 07/08/2024) Active Problems Problem Noted Date Diagnosed Date Metastatic colon cancer to liver 11/25/2023 Protein-calorie malnutrition 08/07/2023 Malignant neoplasm of sigmoid colon 04/22/2023 Encounter for antineoplastic chemotherapy 2022 documented as of this encounter (statuses as of 07/08/2024) Immunizations Name Administration Dates Next Due Pneumococcal [...] EDT Patient returning call stating he did lemon picker oxycodone from pharmacy , but he usually takes hydrocodone and thought this is what was filled. Hydrocodone does control his pain. He is trying to stay away from oxycodone due to financial situation. Please advise. * Telephone Encounter - Joseluis Whitlock ip litigation paralegal - 07/07/2024 3:27 PM EDT Pt calling to check status, warm transferred to dedicated nurse line due to previous message from PCP. Thank you, Joseluis Whitlock Wage And Hour Investigator I [facility] ([facility]) 07/07/2024,3:28 [...] hydrocodone * Telephone Encounter - Mylene Jules [facility] - 07/05/2024 9:41 PM EDT Pending Prescriptions: Disp Refills HYDROcodone-Acetaminophen 7.5-325 MG Oral *120 Ta*0 Sig: Take 1 Tablet by mouth every 6 hours as needed for Pain, Severe. * Telephone Encounter - Mylene Jules [facility] - 07/05/2024 9:33 PM EDT I have reviewed the patients controlled substance dispensing history in the Prescription Drug Monitoring Program in compliance with the [facility] regulations before prescribing a controlled substance. PDMP checked on 07/05/2024. Pending Prescriptions: Disp Refills HYDROcodone-Acetaminophen 7.5-325 MG Oral*120 Ta*0 Sig: Take 1 Tablet by mouth every 6 hours as needed for Pain, Severe. Last Visit: 03/02/2024 (in office), Visit date not found (telemedicine) Next Visit: 07/28/2024 Date medication was last filled: 06/03/24 Date medication is due for refill: 07/02/24 Pharmacy: [facility] [address] [place] [address] Is this request for a controlled substance? Yes and Urine Drug Screen Not completed Toxicology results: No results found for this or any previous visit. Please approve if appropriate. Thanks, Mylene Jules [facility] Clinical Pharmacist [facility] ([facility]) [phone] * Telephone Encounter - Jojo Vasquez PHARM Tech - 07/05/2024 12:16 PM EDT patient calling to check on status of hydrocdone. Advised of 38 hour turn around time. Thank you, Jojo Vasquez Wage And Hour Investigator [facility] ([facility]) 07/05/2024,12:16 PM * Telephone Encounter - Guillermina Tovar CPhT - 07/04/2024 10:11 AM EDT Did you pend patient's preferred pharmacy and medication before forwarding?yes Pharmacy: [facility] [address] Pending Prescriptions: Disp Refills HYDROcodone-Acetaminophen 7.5-325 MG [...] Team (Late st Contact Info) Description 07/12/2024 10:20 AM EDT Laboratory Laboratory Robin Gillespie [place] [address] [place] [address] [phone] Alesha Gillespie [address] [place] [address] 07/13/2024 11:00 AM EDT Office Visit Hematology/Oncology [facility] [address] [place] [address] Anahy Rowan CRNP 400 [facility] [place] [address] 07/13/2024 11:30 AM EDT Hem/Onc Treatment Hematology/Oncology Treatment, [place] [address] [facility] [address] [place] [phone] Verna, Chair 9 Hem Onc [facility] 200 [facility] [address] 07/20/2024 10:45 AM EDT Imaging Radiology [facility] 1st [facility] [place] 132 [facility] [place] [address] 07/28/2024 9:40 AM EDT Office Visit Family Practice [facility] 200 [facility] [address] [place] Evelyne BROWN MD 200 [facility] [place] [address] Health Maintenance Due Date Last Done Comments COVID-19 Vaccine (#1) 1968 HIV Screening 1978 Hepatitis C Screening 1981 DTaP,Tdap,and Td Vaccines (1 - Tdap) 1982 Zoster Vaccines (1 of 2) 1982 Cologuard 2008 Fecal Occult Blood Test 2008 Sigmoidoscopy 2008 Influenza Vaccine (FLU shot) (#1) 2024 Depression Screening 08/07/2024 08/07/2023 Diabetes Screening 06/28/2027 06/28/2024, 0 06/21/2024, 06/07/2024, Additional history exists Lipid Panel 12/01/2028 12/01/2023, [...] this encounter Medical Devices Implanted Type Area Back Shoe Worker Device Identifier Shelf Expiration Date Model / Serial / Lot Port Implant W/8f Poly Cath - [id number] Implanted:Qty : 1 on 05/06/2023 by Leonardo Castro, at OR [facility] Right: Chest CR BARD : PERIPHERAL VASCULAR [id number] 07/16/2024 [id number] / / [id number] documented as of this encounter Visit Diagnoses Diagnosis Malignant neoplasm of sigmoid colon (HCC) Malignant neoplasm of sigmoid colon documented in this encounter Care Teams Artificial Flower Maker Relationship Specialty Start Date End Date Evelyne Franco III, MD 200 [place] [address] PCP - General Family Medicine 04/29/23 documented as of this encounter
--- OUTSIDE RECORDS SUMMARY | 2024-10-25 01:10 | External Medical Summary | Summary of Care ---
Author Name Unknown Organization [facility] Address [address] [place] [address] Phone [phone] Care Team Providers Care Barge Pilot Name Role Phone Amanda BROWN MD, Buddy Britton Primary Care Provider [phone] Encounter Details Date Type Department Care Team (Late st Contact Info) Description 07/10/2024 Orders Only Hematology/Oncology [place] 200 [facility] [place] [address] Yanet Berg MD 200 [facility] [place] [address] Allergies No known active allergiesdocumented as of this encounter (statuses as of 07/10/2024) Medications Medication Sig Dispensed Refills Start Date [...] Sprays into each nostril in the morning. [place] hand to apply. 16 g 3 11/25/2023 [...] for Pain, Severe. 120 Tablet 07/08/2024 Active documented as of this encounter (statuses as of 07/10/2024) Active Problems Problem Noted Date Diagnosed Date Metastatic colon cancer to liver 11/25/2023 Protein-calorie malnutrition 08/07/2023 Malignant neoplasm of sigmoid colon 04/22/2023 Encounter for antineoplastic chemotherapy 2022 documented as of this encounter (statuses as of 07/10/2024) Immunizations Name Administration Dates Next Due Pneumococcal [...] Description 07/12/2024 10:20 AM EDT Laboratory Laboratory [facility] [place] [address] [place] [address] [phone] Alesha Gillespie [place] [address] [place] [address] 07/13/2024 11:00 AM EDT Office Visit Hematology/Oncology [facility] [place] [address] [place] [address] [phone] Anahy Rowan, DEAJ [address] [place] [address] [place] [address] 07/13/2024 11:30 AM EDT Hem/Onc Treatment Hematology/Oncology Treatment, [place] [address] [facility] [address] [place] [phone] Verna, Chair 9 Hem Onc [place] [address] [place] [address] 07/20/2024 10:45 AM EDT Imaging Radiology [facility] 1st [facility], [place] 132 [facility] [place] [address] 07/28/2024 9:40 AM EDT Office Visit Family Practice [facility] [place] [address] [place] [address] [address] Amanda KEVIN, Buddy Britton MD [address] [place] [address] [address] Health Maintenance Due Date Last Done Comments [...] this encounter Medical Devices Implanted Type Area Hematologist Oncologist Device Identifier Shelf Expiration Date Model / Serial / Lot Port Implant W/8f Poly Cath - [id number] Implanted:Qty : 1 on 05/06/2023 by Leonardo Castro, at OR [facility] Right: Chest CR BARD : PERIPHERAL VASCULAR [id number] 07/16/2024 [id number] / / [id number] documented as of this encounter Care Teams Barge Pilot Relationship Specialty Start Date End Date Buddy Patel III, MD 200 [facility] [place], [place] [address] PCP - General Family Medicine 04/29/23 documented as of this encounter
--- OUTSIDE RECORDS SUMMARY | 2024-10-25 01:10 | External Medical Summary ---
Author Name Unknown Address Unknown Organization K09:[facility] [address] Laboratory Report Ordering Provider Test Date Status TEJAS TORRES 07/12/2024 08:24:42 Final Observation Date Value Abnormality Reference (Units ) Status Magnesium 07/12/2024 08:24:42 1.7 1.5-2.6 (m g/dL) Final Performing Location [facility] [address]
--- OUTSIDE RECORDS SUMMARY | 2024-10-25 01:10 | External Medical Summary | Summary of Care ---
Author Name Unknown Organization [facility] Address [address] [place] [address] Phone [phone] Care Team Providers Care Production Control Coordinating Clerk Name Role Phone Amanda BROWN MD, Buddy Britton Primary Care Provider [phone] Encounter Details Date Type Department Care Team (Late st Contact Info) Description 06/28/2024 Orders Only Hematology/Oncology Treatment, [place] [address] [place] [address] Yanet Berg MD [address] [place] [address] Malignant neoplasm of sigmoid colon (HCC)* Allergies [...] Sprays into each nostril in the morning. [place] hand to apply. 16 g 3 11/25/2023 Active Additional Information Patient not taking.Reported on 03/02/2024 Ondansetron HCl 8 MG Oral Tablet (Zofran)Indications :Malignant neoplasm of sigmoid colon (HCC) Take 1 Tablet by mouth every 8 hours as needed for Nausea. 30 Tablet 2 05/10/2024 Active Clindamycin Phosphate 1 % External SolutionIndications :Acneiform rash Apply topically to affected area 2 times a day. Apply to rash on face. 30 mL 06/27/2024 Active documented as of this encounter (statuses [...] Description 07/12/2024 10:20 AM EDT Laboratory Laboratory [facility] [place] [address] [facility] [place] [phone] Verna, [address] [place] [address] Metastatic colon cancer to liver (HCC); Malignant neoplasm of sigmoid colon (HCC) 07/13/2024 11:00 AM EDT Office Visit Hematology/Oncology [facility] [place] [address] [facility] [place] [address] Anahy Rowan CRNP [address] [place] [address] [place] [address] 07/13/2024 11:30 AM EDT Hem/Onc Treatment Hematology/Oncology Treatment, [place] [address] [facility] [place] [phone] Verna, Chair 9 Hem Onc [address] [place] [address] 07/20/2024 10:45 AM EDT Imaging Radiology [address], [place] [address] [place] [address] 07/28/2024 9:40 AM EDT Office Visit Family Practice [facility] [address] [place] [address] Buddy Patel III, MD [address] [facility] [place] [address] Scheduled Orders Name Type Priority Associated Diagnoses Orde r Schedule MAGNESIUM Lab STAT Malignant neoplasm of sigmoid colon (HCC) 5 Occurrences starting 07/12/2024 until 07/12/2025 Health Maintenance Due Date Last Done Comments [...] this encounter Medical Devices Implanted Type Area Corn Cutter Device Identifier Shelf Expiration Date Model / Serial / Lot Port Implant W/8f Poly Cath - [id number] Implanted:Qty : 1 on 05/06/2023 by Leonardo Castro DO at OR [facility] Right: Chest CR BARD : PERIPHERAL VASCULAR [id number] 07/16/2024 [id number] / / [id number] documented as of this encounter Results * (ABNORMAL) BILIRUBIN, DIRECT (06/28/2024 9:42 AM EDT) Bilirubin, Direct 0.4(H) 0.0 - 0.3 mg/dL 06/28/2024 12:08 PM EDT [facility] 56- Blood Venous blood specimen / Unknown Venipuncture / Unknown 06/28/2024 9:42 AM EDT 06/28/2024 9:42 AM EDT Yanet Berg MD LAB BLOOD ORDERA BLES [facility] 56- [address] [place] [address] documented in this encounter Visit Diagnoses Diagnosis Malignant neoplasm of sigmoid colon (HCC)- Primary Malignant neoplasm of sigmoid colon Metastatic colon cancer to liver (HCC) Malignant neoplasm of colon, unspecified site Malignant neoplasm of sigmoid colon (HCC) Malignant neoplasm of sigmoid colon documented in this encounter Care Teams Production Control Coordinating Clerk Relationship Specialty Start Date End Date Buddy Patel III, MD 200 [place] [address] PCP - General Family Medicine 04/29/23 documented as of this encounter
--- OUTSIDE RECORDS SUMMARY | 2024-10-25 01:10 | External Medical Summary ---
Author Name Unknown Address Unknown Organization [facility] [address] [place] [address] Laboratory Report Ordering Provider Test Date Status TEJAS TORRES 07/12/2024 08:24:42 Final Observation Date Value Abnormality Reference (Units ) Status BUN 07/12/2024 08:24:42 6 6-20 (mg/dL) Final Creatinine 07/12/2024 08:24:42 0.8 0.6-1.2 (mg/dL) Final Glomerular filtration rate/1.73 sq M.predicted [Volume Rate/Area] in Serum, Plasma or Blood by Creatinine-based formula (CKD-EPI) 07/12/2024 08:24:42 >90 >=60 (mL/min) Final eGFR is calculated based on the CKD-EPI 2020 equation. Sodium 07/12/2024 08:24:42 135 135-146 (m mol/L) Final Potassium 07/12/2024 08:24:42 3.3 Below low normal 3.5 -5.1 (mmol/L) Final Cl 07/12/2024 08:24:42 98 98-107 (mm ol/L) Final CO2 07/12/2024 08:24:42 25 22-32 (mmo l/L) Final Anion gap 07/12/2024 08:24:42 12 7-15 (mmol /L) Final Glucose 07/12/2024 08:24:42 100 70-120 (mg /dL) Final Albumin 07/12/2024 08:24:42 3.0 Below low normal 3.8 -5.0 (g/dL) Final AST (Aspartate aminotransferase) 07/12/2024 08:24:42 26 10-50 (U/L) Fin al Alk Phos 07/12/2024 08:24:42 210 Above high normal 35 -130 (U/L) Final Bilirubin, Total 07/12/2024 08:24:42 0.9 <=1 .2 (mg/dL) Final Calcium 07/12/2024 08:24:42 8.7 8.4-10.2 ( mg/dL) Final Protein 07/12/2024 08:24:42 6.7 6.0-8.3 (g /dL) Final ALT (Alanine aminotransferase) 07/12/2024 08:24:42 23 10-50 (U/L) Jake chavez Performing Location [facility] [address] [place] [address]
--- OUTSIDE RECORDS SUMMARY | 2024-10-25 01:10 | External Medical Summary | Summary of Care ---
Author Name Unknown Organization [facility] Address [address] [place] [address] Phone [phone] Care Team Providers Care Dicer Machine Operator Name Role Phone Amanda BROWN MD, Buddy Britton Primary Care Provider [phone] Reason for Visit * Reason Comments Outpatient Testing Encounter Details Date Type Department Care Team (Late st Contact Info) Description 07/12/2024 10:20 AM EDT Laboratory Laboratory [facility] [address] [place] [address] [facility] [address] [place] [address] Metastatic colon cancer to liver (HCC); Malignant [...] Sprays into each nostril in the morning. [place] hand to apply. 16 g 3 [...] 07/13/2024 11:00 AM EDT Office Visit Hematology/Oncology [facility] [address] [place] [phone] Anahy Rowan CRNP [address] [place] [address] [place] [address] 07/13/2024 11:30 AM EDT Hem/Onc Treatment Hematology/Oncology Treatment, [place] [address] [facility] [place] [phone] Verna, Chair 9 Hem Onc [address] [place] [address] 07/20/2024 10:45 AM EDT Imaging Radiology [address], [address] [place] [address] 07/28/2024 9:40 AM EDT Office Visit Family Practice [facility] [place] [address] [place] [address] [address] Buddy Patel III, MD [address] [place] [address] [place] [address] Pending Results Name Type Priority Associated Diagnoses Date /Time COMPREHENSIVE METABOLIC PANEL Lab STAT Metastatic colon cancer to liver (HCC) 07/12/2024 8:24 AM EDT MAGNESIUM Lab STAT Metastatic colon cancer to liver (HCC) 07/12/2024 8:24 AM EDT Health Maintenance Due Date Last [...] this encounter Medical Devices Implanted Type Area Sleeping Car Porter Device Identifier Shelf Expiration Date Model / Serial / Lot Port Implant W/8f Poly Cath - [id number] Implanted:Qty : 1 on 05/06/2023 by Leonardo Castro, at OR [facility] Right: Chest CR BARD : PERIPHERAL VASCULAR [id number] 07/16/2024 [id number] / / [id number] documented as of this encounter Procedures Procedure Name Priority Date/Time Associated Diagnosis Comments DIFFERENTIAL, AUTOMATED STAT 07/12/2024 8:24 AM EDT Metastatic colon cancer to liver (HCC) CBC STAT 07/12/2024 8:24 AM EDT Metastatic colon cancer to liver (HCC) CBC STAT 07/12/2024 8:24 AM EDT Metastatic colon cancer to liver (HCC) documented in this encounter Results * (ABNORMAL) DIFFERENTIAL, AUTOMATED (07/12/2024 8:24 AM EDT) WBC 2.31(L) 4.00 - 10.80 K/uL 07/12/2024 8:33 AM EDT [facility] 56-[address] Neutrophils % 29.9(L) 40.0 - 75.0 % 07/12/2024 8:33 AM EDT [facility] 56-02 Lymphocytes % 39.0 18.0 - 42.0 % 07/12/2024 8:33 AM EDT [facility] 56-02 Monocytes % 27.7(H) 1.0 - 11.0 % 07/12/2024 8:33 AM EDT [facility] 56-02 Eosinophils % 3.0 0.0 - 6.0 % 07/12/2024 8:33 AM EDT [facility] 56-02 Basophils % 0.4 0.0 - 2.0 % 07/12/2024 8:33 AM EDT [facility] 56-02 Absolute Neutrophils 0.69(L) 1.80 - 7.70 K/uL 07/12/2024 8:33 AM EDT [facility] 56-02 Absolute Lymphocytes 0.90(L) 1.00 - 4.80 K/ul 07/12/2024 8:33 AM EDT [facility] 56-[address] Absolute Monocytes 0.64 0.00 - 1.10 K/uL 07/12/2024 8:33 AM EDT [facility] 56-02 Absolute Eosinophils 0.07 0.00 - 0.70 K/uL 07/12/2024 8:33 AM EDT [facility] 56-[address] Absolute Basophils 0.01 0.00 - 0.20 K/uL 07/12/2024 8:33 AM EDT [facility] 56-02 Blood Venous blood specimen / Unknown Venipuncture / Unknown 07/12/2024 8:24 AM EDT 07/12/2024 8:24 AM EDT Yanet Berg MD LAB BLOOD ORDERA BLES [facility] [address] [place] [address] * (ABNORMAL) CBC (07/12/2024 8:24 AM EDT) WBC 2.31(L) 4.00 - 10.80 K/uL 07/12/2024 8:33 AM EDT [facility] 56 RBC 3.69 4.50 - 5.25 M/uL 07/12/2024 8:33 AM EDT [facility] 56 HGB 9.2(L) 14.0 - 16.8 g/dL 07/12/2024 8:33 AM EDT [facility] 56 HCT 29.4(L) 40.0 - 48.4 % 07/12/2024 8:33 AM EDT [facility] 56 MCV 79.7 82.0 - 99.5 fL 07/12/2024 8:33 AM EDT [address] MCH 24.9 27.0 - 34.0 pg 07/12/2024 8:33 AM EDT [address] MCHC 31.3 32.0 - 36.0 g/dL 07/12/2024 8:33 AM EDT [facility] 56 RDW 18.7 11.5 - 15.5 % 07/12/2024 8:33 AM EDT [facility] 56 PLT 226 140 - 400 K/uL 07/12/2024 8:33 AM EDT [facility] 56 MPV 12.4 6.6 - 11.1 fL 07/12/2024 8:33 AM EDT [facility] 56 Blood Venous blood specimen / Unknown Venipuncture / Unknown 07/12/2024 8:24 AM EDT 07/12/2024 8:24 AM EDT Yanet Berg MD LAB BLOOD ORDERA BLES [facility] [address] [place] [address] documented in this encounter Visit Diagnoses Diagnosis Metastatic colon cancer to liver (HCC) Malignant neoplasm of colon, unspecified site Malignant neoplasm of sigmoid colon (HCC) Malignant neoplasm of sigmoid colon documented in this encounter Care Teams Dicer Machine Operator Relationship Specialty Start Date End Date Buddy Patel III, MD [address] [place] [address] PCP - General Family Medicine 04/29/23 documented as of this encounter
--- OUTSIDE RECORDS SUMMARY | 2024-10-25 01:10 | External Medical Summary | Summary of Care ---
Author Name Unknown Organization [facility] Address [address] [place] [address] Phone [phone] Care Team Providers Care Roller Shop Utility Worker Name Role Phone Amanda BROWN MD, Evelyne Britton Primary Care Provider [phone] Reason for Visit * Reason Onset Date Comments Medication Refill 07/01/2024 Encounter Details Date Type Department Care Team (Late st Contact Info) Description 07/01/2024 Refill Family Practice [facility] [address] [facility] [place] [address] Evelyne Franco III, MD [address] [place] [address] Malignant neoplasm of sigmoid colon (HCC) Allergies No known active allergiesdocumented as of this encounter (statuses as of 07/04/2024) Medications Medication Sig Dispensed Refills Start Date [...] Sprays into each nostril in the morning. [place] hand to apply. 16 g 3 11/25/2023 Active Additional Information Patient not taking.Reported on 03/02/2024 Ondansetron HCl 8 MG Oral Tablet (Zofran)Indicati ons:Malignant neoplasm of sigmoid colon (HCC) Take 1 Tablet by mouth every 8 hours as needed for Nausea. 30 Tablet 2 05/10/2024 Active HYDROcodone-Acet aminophen 7.5-325 MG Oral TabletIndication s:Malignant neoplasm of sigmoid colon (HCC) Take 1 Tablet by mouth every 6 hours as needed for Pain, Severe. 120 Tablet 06/03/2024 Active Clindamycin Phosphate 1 % External SolutionIndicati [...] for Pain, Severe. 120 Tablet 07/04/2024 Active oxyCODONE HCl 5 MG Oral Tablet (Oxy IR)Indications:M alignant neoplasm of sigmoid colon (HCC) Take 1 Tablet by mouth every 6 hours as needed for Pain, Severe. 120 Tablet 11/04/2023 4 Discontinue d(Refill) ALPRAZolam 1 MG Oral Tablet (xaNAX) 1 tablet at bedtime as needed for sleep 30 Tablet 1 05/04/2024 4 Discontinue d(Refill) documented as of this encounter (statuses as of 07/04/2024) Active Problems Problem Noted Date Diagnosed Date Metastatic colon cancer to liver 11/25/2023 Protein-calorie malnutrition 08/07/2023 Malignant neoplasm of sigmoid colon 04/22/2023 Encounter for antineoplastic chemotherapy 2022 documented as of this encounter (statuses as of 07/04/2024) Immunizations Name Administration Dates Next Due Pneumococcal [...] Encounter - Evelyne Franco III, MD - 07/04/2024 12:20 PM EDTSigned Prescriptions: Disp Refills ALPRAZolam 1 MG Oral Tablet (xaNAX) 30 Tab*1 Si tablet at bedtime as needed for sleepAuthorizing Provider: EVELYNE FRANCO III oxyCODONE HCl 5 MG Oral Tablet (OxyIR) 120 Ta*0 Sig: Take 1 Tablet by mouth every 6 hours as needed for Pain, Severe.Authorizing Provider: EVELYNE FRANCO III * Telephone Encounter - Medina Tobias PHARM Tech - 07/04/2024 11:14 AM EDT Pending Prescriptions: Disp Refills ALPRAZolam 1 MG Oral Tablet (xaNAX) 30 Tab*1 Si tablet at bedtime as needed for sleep oxyCODONE HCl 5 MG Oral Tablet (Oxy IR) 120 Ta*0 Sig: Take 1 Tablet by mouth every 6 hours as needed for Pain, Severe. * Telephone Encounter - Vilma Urban [facility] - 07/03/2024 10:29 PM EDT Pending Prescriptions: Disp Refills ALPRAZolam 1 MG Oral Tablet (xaNAX) 30 Tab*1 Si tablet at bedtime as needed for sleep oxyCODONE HCl 5 MG Oral Tablet (Oxy IR) 120 Ta*0 Sig: Take 1 Tablet by mouth every 6 hours as needed for Pain, Severe. * Telephone Encounter - Vilma Urban [facility] - 07/03/2024 10:26 PM EDT Patient asking for refill of oxycodone 5mg which has not been filled 11/04/2023 Patient has been on hydrocod/apap on I have reviewed the patients controlled substance dispensing history in the Prescription Drug Monitoring Program in compliance with the [facility] regulations before prescribing a controlled substance. PDMP checked on 07/03/2024. Pending Prescriptions: Disp Refills ALPRAZolam 1 MG Oral Tablet (xaNAX) 30 Tab*1 Si tablet at bedtime as needed for sleep oxyCODONE HCl 5 MG Oral Tablet (Oxy IR) 120 Ta*0 Sig: Take 1 Tablet by mouth every 6 hours as needed for Pain, Severe. Last Visit: 03/02/2024 (in office), Visit date not found (telemedicine) Next Visit: 07/28/2024 Date medication was last filled: 06/04/2024 Date medication is due for refill: 07/03/2024 Pharmacy: [facility] [address] [place] [address] Is this request for a controlled substance? Yes and Urine Drug Screen Not completed Toxicology results: No results found for this or any previous visit. Please approve if appropriate. Thank you, Vilma Urban [facility] Clinical Pharmacist [facility] ([facility]) 07/03/24 10:26 PM [phone] * Telephone Encounter - Temi Adler, refrigerator tester - 07/01/2024 9:01 AM EDT Did you pend patient's preferred pharmacy and medication before forwarding?yes Pharmacy: [facility] [address] [place] [address] Pending Prescriptions: Disp Refills ALPRAZolam 1 MG Oral Tablet (xaNAX) 30 Tab*1 Si tablet at bedtime as needed for sleep oxyCODONE HCl 5 MG Oral Tablet (Oxy [...] appointment Last date the medication was ordered: 05/04/2024, 11/04/2023 Is this request for a controlled substance?Yes, What was the last refill date 05/04/2024,11/04/2023 w/ quantity 30,120 and dosage 1 mg, 5 mg and Urine Drug Screen Not completed Urine [...] Description 07/12/2024 10:20 AM EDT Laboratory Laboratory [facility] [place] [address] [facility] [place] [phone] Verna [place] [address] [place] [address] 07/13/2024 11:00 AM EDT Office Visit Hematology/Oncology [facility] [place] [address] [place] [address] [phone] [facility] [address] [facility] [address] 07/13/2024 11:30 AM EDT Hem/Onc Treatment Hematology/Oncology Treatment, [place] [address] [facility] [address] [place] [phone] Verna, Chair 9 Hem Onc [place] [address] [place] [address] [address] 07/20/2024 10:45 AM EDT Imaging Radiology [facility] [address] [place] [address] 07/28/2024 9:40 AM EDT Office Visit Family Practice [facility] [place] [address] [place] [address] [address] AmandaEvelyne apple III, MD [facility] [place] [address] Health Maintenance Due Date Last Done Comments [...] this encounter Medical Devices Implanted Type Area Hoop Maker Device Identifier Shelf Expiration Date Model / Serial / Lot Port Implant W/8f Poly Cath - [id number] Implanted:Qty : 1 on 05/06/2023 by Leonardo Castro, at [facility] Right: Chest CR BARD : PERIPHERAL VASCULAR [id number] 07/16/2024 [id number] / / [id number] documented as of this encounter Visit Diagnoses Diagnosis Malignant neoplasm of sigmoid colon (HCC) Malignant neoplasm of sigmoid colon documented in this encounter Care Teams Roller Shop Utility Worker Relationship Specialty Start Date End Date Evelyne Franco III, MD [address] [facility] [place] [address] PCP - General Family Medicine 04/29/23 documented as of this encounter
--- OUTSIDE RECORDS SUMMARY | 2024-10-25 01:10 | External Medical Summary ---
Author Name Unknown Address Unknown Organization [facility] [place] [address] Laboratory Report Ordering Provider Test Date Status TEJAS TORRES 07/12/2024 08:24:42 Final Observation Date Value Abnormality Reference (Units ) Status SYNC LEUKOCYTES IN BLOOD BY AUTOMATED COUNT 07/12/2024 08:24:42 2.31 Below low normal 4.00-10.80 (K/uL) Final Segs 07/12/2024 08:24:42 29.9 Below low normal 40.0-75.0 (%) Final Lymphs % 07/12/2024 08:24:42 39.0 18.0-42.0 (%) Final Monos 07/12/2024 08:24:42 27.7 Above high normal 1.0-11.0 (%) Final Eosinophils 07/12/2024 08:24:42 3.0 0.0-6.0 (%) Final Basos 07/12/2024 08:24:42 0.4 0.0-2.0 (%) Final Absolute Segs 07/12/2024 08:24:42 0.69 Below low normal 1.80-7.70 (K/uL) Final Lymphs, absolute 07/12/2024 08:24:42 0.90 Below low normal 1.00-4.80 (K/ul) Final Monos, Abs 07/12/2024 08:24:42 0.64 0.00-1.10 (K/uL) Final Eos, Abs 07/12/2024 08:24:42 0.07 0.00-0.70 (K/uL) Final Basos, Abs 07/12/2024 08:24:42 0.01 0.00-0.20 (K/uL) Final Performing Location [facility] [place] [address]
--- OUTSIDE RECORDS SUMMARY | 2024-10-25 01:11 | External Medical Summary ---
Author Name Unknown Address Unknown Organization [facility] [place] [address] Laboratory Report Ordering Provider Test Date Status TORRES,TEJAS 06/28/2024 09:42:31 Final Observation Date Value Abnormality Reference (Units ) Status Nucleated erythrocytes/100 leukocytes [Ratio] in Blood by Automated count 06/28/2024 09:42:31 Final Schistocytes 06/28/2024 09:42:31 Few Abnormal None Seen Final Variant lymphocytes [Presence] in Blood by Light microscopy 06/28/2024 09:42:31 Present Abnormal None Seen Final Performing Location [facility] [place] [place] [address]
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
--- OUTSIDE RECORDS SUMMARY | 2024-10-25 01:11 | External Medical Summary ---
Author Name Unknown Address Unknown Organization K09[facility] [place] [address] Laboratory Report Ordering Provider Test Date Status TEJAS TORRES 06/28/2024 09:42:31 Final Observation Date Value Abnormality Reference (Units ) Status WBC, Total 06/28/2024 09:42:31 12.03 Above high normal 4 .00-10.80 (K/uL) Final RBC 06/28/2024 09:42:31 4.52 4.50-5.25 (M/uL) Final Hemoglobin 06/28/2024 09:42:31 11.6 Below low normal 14 .0-16.8 (g/dL) Final HCT 06/28/2024 09:42:31 36.0 Below low normal 40. 0-48.4 (%) Final MCV 06/28/2024 09:42:31 79.6 82.0-99.5 (fL) Final MCH 06/28/2024 09:42:31 25.7 27.0-34.0 (pg) Final MCHC 06/28/2024 09:42:31 32.2 32.0-36.0 (g/dL) Final RDW 06/28/2024 09:42:31 21.0 11.5-15.5 (%) Final Platelets 06/28/2024 09:42:31 187 140-400 (K /uL) Final MPV 06/28/2024 09:42:31 8.8 6.6-11.1 ( fL) Final Performing Location [facility] [place] [address]
--- OUTSIDE RECORDS SUMMARY | 2024-10-25 01:11 | External Medical Summary ---
Author Name Unknown Address Unknown Organization [facility]09[facility] [address] [place] [address] Laboratory Report Ordering Provider Test Date Status TEJAS TORRES 06/28/2024 09:42:31 Final Observation Date Value Abnormality Reference (Units ) Status BUN 06/28/2024 09:42:31 9 6-20 (mg/dL) Final Creatinine 06/28/2024 09:42:31 0.7 0.6-1.2 (mg/dL) Final Glomerular filtration rate/1.73 sq M.predicted [Volume Rate/Area] in Serum, Plasma or Blood by Creatinine-based formula (CKD-EPI) 06/28/2024 09:42:31 >90 >=60 (mL/min) Final eGFR is calculated based on the CKD-EPI 2020 equation. Sodium 06/28/2024 09:42:31 138 135-146 (m mol/L) Final Potassium 06/28/2024 09:42:31 4.4 3.5-5.1 (m mol/L) Final Cl 06/28/2024 09:42:31 103 98-107 (mm ol/L) Final CO2 06/28/2024 09:42:31 22 22-32 (mmo l/L) Final Anion gap 06/28/2024 09:42:31 13 7-15 (mmol /L) Final Glucose 06/28/2024 09:42:31 110 70-120 (mg /dL) Final Albumin 06/28/2024 09:42:31 3.2 Below low normal 3.8 -5.0 (g/dL) Final AST (Aspartate aminotransferase) 06/28/2024 09:42:31 24 10-50 (U/L) Fin al Alk Phos 06/28/2024 09:42:31 213 Above high normal 35 -130 (U/L) Final Bilirubin, Total 06/28/2024 09:42:31 1.6 Above high no rmal <=1.2 (mg/dL) Final Calcium 06/28/2024 09:42:31 9.0 8.4-10.2 ( mg/dL) Final Protein 06/28/2024 09:42:31 7.8 6.0-8.3 (g /dL) Final ALT (Alanine aminotransferase) 06/28/2024 09:42:31 7 Below low normal 10-50 (U/L) Final Performing Location [facility] [address] [place] [address]
--- OUTSIDE RECORDS SUMMARY | 2024-10-25 01:11 | External Medical Summary | Summary of Care ---
Author Name Unknown Organization [facility] Address [address] [place] [address] Phone [phone] Care Team Providers Care Crew Chief Name Role Phone Amanda BROWN MD, Buddy Britton Primary Care Provider [phone] Reason for Visit * Reason Comments Procedure Pump d/c * Episode Based Medications (Routine) - Authorized Specialty Diagnoses / Procedures Referred By Yany severino Referred To Contact Diagnoses Malignant neoplasm of sigmoid colon (HCC) Encounter for antineoplastic chemotherapy Procedures SD LEUCOVORIN CALCIUM INJECTION SD PALONOSETRON HCL SD FLUOROURACIL INJECTION SD IRINOTECAN INJECTION SD PANITUMUMAB INJECTION Yanet Berg MD [address] [place] [id number] Anc Hem/Onc [address] [address] Referral ID Status Reason Start Date Expiration Date V isits Requested Visits Authorized [id number] Authorized 05/04/2024 10/16/2099 999 999 Encounter Details Date Type Department Care Team (Latest Contact Info) Description 07/01/2024 12:45 PM EDT Immunization/ Injection Hematology/Oncology Treatment, [address] [address] Malignant neoplasm of sigmoid colon (HCC)*; Encounter for antineoplastic chemotherapy Allergies No known active allergiesdocumented as of this encounter (statuses as of 07/01/2024) Medications Medication Sig Dispensed Refills Start Date [...] Sprays into each nostril in the morning. [place] hand to apply. 16 g 3 11/25/2023 [...] as of this encounter (statuses as of 07/01/2024) Active Problems Problem Noted Date Diagnosed Date Metastatic colon cancer to liver 11/25/2023 Protein-calorie malnutrition 08/07/2023 Malignant neoplasm of sigmoid colon 04/22/2023 Encounter for antineoplastic chemotherapy 2022 documented as of this encounter (statuses as of 07/01/2024) Immunizations Name Administration Dates Next Due Pneumococcal [...] Description 07/12/2024 10:20 AM EDT Laboratory Laboratory [facility] [address] [place] [phone] [facility] 200 [facility] [place] [address] 07/13/2024 11:00 AM EDT Office Visit Hematology/Oncology [facility] [address] [place] [phone] Anahy Rowan CRNP 400 [facility] [place] [address] 07/13/2024 11:30 AM EDT Hem/Onc Treatment Hematology/Oncology Treatment, [place] [address] [facility] [address] [place] [phone] Verna, Chair 9 Hem Onc [facility] 200 [facility] [place] [address] 07/20/2024 10:45 AM EDT Imaging Radiology [address], [place] [address] [facility] [place] [address] 07/28/2024 9:40 AM EDT Office Visit Family Practice [facility] [place] 200 [facility] [place] [address] Buddy Patel III, MD [facility] [address] Health Maintenance Due Date Last Done Comments [...] this encounter Medical Devices Implanted Type Area Traffic Maintenance Supervisor Device Identifier Shelf Expiration Date Model / Serial / Lot Port Implant W/8f Poly Cath - [id number] Implanted:Qty : 1 on 05/06/2023 by Leonardo Castro DO at OR [facility] Right: Chest CR BARD : PERIPHERAL VASCULAR [id number] 07/16/2024 [id number] / / [id number] documented as of this encounter Visit Diagnoses [...] Flush, Starting on Thu07/01/24 at 1248, Until 07/02/24 at 1247, For 24 hours, Do not flush if lock, PICC, or central line not in place; IV infusing or unable to flush. Given 07/01/2024 12:51 PM EDT 500 Units sodium chloride 0.9 % flush central line 10 mL 10 mL, IV Push, PRN Other, IV Flush, Starting on Thu07/01/24 at 1248, Until 07/02/24 at 1247, For 24 hours, Do not flush if lock, PICC, or central line not in place; IV infusing or unable to flush. Given 07/01/2024 12:51 PM EDT 10 mL documented in this encounter Care Teams Crew Chief Relationship Specialty Start Date End Date Buddy Patel III, MD [address] [place] [address] PCP - General Family Medicine 04/29/23 documented as of this encounter
--- OUTSIDE RECORDS SUMMARY | 2024-10-25 01:11 | External Medical Summary | Summary of Care ---
Author Name Unknown Organization [facility] Address [address] [place] [address] Phone [phone] Care Team Providers Care Machine Puller And Laster Name Role Phone Amanda BROWN MD, Buddy Britton Primary Care Provider [phone] Reason for Visit * Reason Comments Chemotherapy vectibix, leucovorin , irinotecan, 5fu. * Episode Based Medications (Routine) - Authorized Specialty Diagnoses / Procedures Referred By Contac t Referred To Contact Diagnoses Malignant neoplasm of sigmoid colon (HCC) Encounter for antineoplastic chemotherapy Procedures GA LEUCOVORIN CALCIUM INJECTION GA PALONOSETRON HCL GA FLUOROURACIL INJECTION GA IRINOTECAN INJECTION GA PANITUMUMAB INJECTION Yanet Berg MD [address] [place] [address], [place] [address] Anc Hem/Onc [facility] [address] [place] [phone] Referral ID Status Reason Start Date Expiration Date V isits Requested Visits Authorized [id number] Authorized 05/04/2024 10/16/2099 999 999 Encounter Details Date Type Department Care Team (Latest Contact Info) Description 06/29/2024 11:30 AM EDT Hem/Onc Treatment Hematology/Oncolog y Treatment, [address] [address] Verna, Chair 11 Hem Onc [address] [place] [address] Malignant neoplasm of sigmoid colon (HCC)*; Encounter [...] Sprays into each nostril in the morning. [place] hand to apply. 16 g 3 11/25/2023 [...] Team (Late st Contact Info) Description 07/01/2024 12:45 PM EDT Immunization/Injecti on Hematology[facility]cology [facility] [place] [facility] [phone] 07/12/2024 10:20 AM EDT Laboratory Laboratory [facility] [place] 200 [place] [phone] Verna Lab [address] [facility] [place] [address] 07/13/2024 11:00 AM EDT Office Visit Hematology/Oncology [facility] [address] [place] [phone] Anahy Rowan, DEJA [address] [place] [address] 07/13/2024 11:30 AM EDT Hem/Onc Treatment Hematology/Oncology Treatment, [place] [address] [facility] [place] [phone] Verna, Chair 9 Hem Onc [address] [place] [address] 07/20/2024 10:45 AM EDT Imaging Radiology [address], [place] [address] [place] [address] 07/28/2024 9:40 AM EDT Office Visit Family Practice [facility] [place] [facility] [place] [address] [place] Buddy BROWN MD [facility] [place] [address] Health Maintenance Due Date Last Done Comments [...] this encounter Medical Devices Implanted Type Area Sewing Techniques Demonstrator Device Identifier Shelf Expiration Date Model / Serial / Lot Port Implant W/8f Poly Cath - [id number] Implanted:Qty : 1 on 05/06/2023 by Leonardo Castro DO at OR [facility] Right: Chest CR BARD : PERIPHERAL VASCULAR [id number] 07/16/2024 [id number] / / [id number] documented as of this encounter Visit Diagnoses [...] ONCE PRN Other, Hypersensitivity Reaction, Starting on Thu06/29/24 at 1132, Until Marcela 06/30/24 at 1131, For 24 hours EPINEPHrine 1 MG/ML inj 0.3 mg 0.3 mg, Intramuscular, ONCE PRN Other, Hypersensitivity Reaction or Anaphylaxis, Starting on Thu06/29/24 at 1132, Until Marcela 06/30/24 at 1131, For 24 hours hEParin 100 UNIT/ML Lock Flush inj 500 Units 500 Units (5 mL), IV Lock, PRN Other, IV Flush, Starting on Thu06/29/24 at 1132, Until Marcela 06/30/24 at 1131, For 24 hours, Do not flush if lock, PICC, or central line not in place; IV infusing or unable to flush. Hydrocortisone Sod Suc (PF) (Solu-Cortef) inj 100 mg 100 mg, IV Push, ONCE PRN Other, Hypersensitivity Reaction, Starting on Thu06/29/24 at 1132, Until Marcela 06/30/24 at 1131, For 24 hours LORAzepam (Ativan) tab 0.5 mg 0.5 mg, Oral, ONCE PRN Anxiety, Nausea, Starting on Thu06/29/24 at 0830, Until Discontinued NSS infusion Intravenous, at 50 mL/hr, PRN, Starting on Thu06/29/24 at 0830, Until Discontinued, Maintenance line Start Infusion 06/29/2024 11:55 AM EDT 50 mL/hr oxygen GAS Inhalation, OXYGEN, First dose on Thu06/29/24 at 1600, Until Discontinued, Device/Managed by: Low [...] Flush, Starting on Thu06/29/24 at 1132, Until Marcela 06/30/24 at 1131, For 24 hours, Do not flush if lock, PICC, or central line not in place; IV infusing or unable to flush. Given 06/29/2024 2:40 PM EDT 10 mL Inactive Administered Medications [...] 1:04 PM EDT 850 mg 170 mL/hr Palonosetron (Aloxi) inj SOLN [...] 12:17 PM EDT 500 mg 200 mL/hr documented in this encounter Care Teams Machine Puller And Laster Relationship Specialty Start Date End Date Buddy Patel III, MD 200 [facility] [place] [address] PCP - General Family Medicine 04/29/23 documented as of this encounter
--- OUTSIDE RECORDS SUMMARY | 2024-10-25 01:11 | External Medical Summary ---
Author Name Unknown Address Unknown Organization K09[facility] [place] [address] Laboratory Report Ordering Provider Test Date Status TEJAS TORRES 06/28/2024 09:42:31 Final Observation Date Value Abnormality Reference (Units ) Status Bilirubin, Direct 06/28/2024 09:42:31 0.4 Above high normal 0.0-0.3 (mg/dL) Final Performing Location [facility] [place] [address]
--- OUTSIDE RECORDS SUMMARY | 2024-10-25 01:11 | External Medical Summary ---
Author Name Unknown Address Unknown Organization K09[facility] [place] [place] [address] Laboratory Report Ordering Provider Test Date Status TEJAS TORRES 06/28/2024 09:42:31 Final Observation Date Value Abnormality Reference (Units ) Status SYNC LEUKOCYTES IN BLOOD BY AUTOMATED COUNT 06/28/2024 09:42:31 12.03 Above high normal 4.00-10.80 (K/uL) Final Segs 06/28/2024 09:42:31 75.5 Above high normal 40.0-75.0 (%) Final Lymphs % 06/28/2024 09:42:31 12.6 Below low normal 18.0-42.0 (%) Final Monos 06/28/2024 09:42:31 11.5 Above high normal 1.0-11.0 (%) Final Eosinophils 06/28/2024 09:42:31 0.2 0.0-6.0 (%) Final Basos 06/28/2024 09:42:31 0.2 0.0-2.0 (%) Final Absolute Segs 06/28/2024 09:42:31 9.08 Above high normal 1.80-7.70 (K/uL) Final Lymphs, absolute 06/28/2024 09:42:31 1.52 1.00-4.80 (K/ul) Final Monos, Abs 06/28/2024 09:42:31 1.38 Above high normal 0.00-1.10 (K/uL) Final Eos, Abs 06/28/2024 09:42:31 0.03 0.00-0.70 (K/uL) Final Basos, Abs 06/28/2024 09:42:31 0.02 0.00-0.20 (K/uL) Final Performing Location [facility] [place] [address]
--- OUTSIDE RECORDS SUMMARY | 2024-10-25 01:11 | External Medical Summary | Summary of Care ---
Author Name Unknown Organization [facility] Address [address] [place] [address] Phone [phone] Care Team Providers Care Sand Buffer Name Role Phone Amanda BROWN MD, Buddy Britton Primary Care Provider [phone] Reason for Visit * Reason Comments Outpatient Testing Encounter Details Date Type Department Care Team (Late st Contact Info) Description 06/28/2024 10:30 AM EDT Laboratory Laboratory [facility] [address] [place] [address] [facility] [address] [place], [place] [id number] Metastatic colon cancer to liver (HCC) Allergies No known active allergiesdocumented as of this encounter (statuses as of 06/28/2024) Medications Medication Sig Dispensed Refills Start Date [...] Sprays into each nostril in the morning. [place] hand to apply. 16 g 3 11/25/2023 [...] as of this encounter (statuses as of 06/28/2024) Active Problems Problem Noted Date Diagnosed Date Metastatic colon cancer to liver 11/25/2023 Protein-calorie malnutrition 08/07/2023 Malignant neoplasm of sigmoid colon 04/22/2023 Encounter for antineoplastic chemotherapy 2022 documented as of this encounter (statuses as of 06/28/2024) Immunizations Name Administration Dates Next Due Pneumococcal [...] 06/29/2024 11:00 AM EDT Office Visit Hematology/Oncology [facility] [place] [address] [place] [phone] Yanet Berg MD [address] [place] [address] 06/29/2024 11:30 AM EDT Hem/Onc Treatment Hematology/Oncology Treatment, [place] [address] [place] [phone] Verna, Chair 11 Hem Onc [place] [address] [place] [address] 07/13/2024 11:00 AM EDT Office Visit Hematology/Oncology [facility] [place] [address] [place] [phone] Anahy Rowan CRNP 400 [facility] [place] [id number] 07/28/2024 9:40 AM EDT Office Visit Family Practice [facility] [place] [address] [place] [address] Buddy Patel III, MD [address] [place] [address] Pending Results Name Type Priority Associated Diagnoses Date /Time CBC WITH WBC DIFFERENTIAL Lab STAT Metastatic colon cancer to liver (HCC) 06/28/2024 9:42 AM EDT COMPREHENSIVE METABOLIC PANEL Lab STAT Metastatic colon cancer to liver (HCC) 06/28/2024 9:42 AM EDT MAGNESIUM Lab STAT Metastatic colon cancer to liver (HCC) 06/28/2024 9:42 AM EDT CBC Lab STAT Metastatic colon cancer to liver (HCC) 06/28/2024 9:42 AM EDT DIFFERENTIAL, AUTOMATED Lab STAT Metastatic colon cancer to liver (HCC) 06/28/2024 9:42 AM EDT DIFFERENTIAL, TECHNOLOGIST REVIEW Lab Routine Metastatic colon cancer to liver (HCC) 06/28/2024 9:42 AM EDT Health Maintenance Due Date Last Done Comments COVID-19 Vaccine (#1) 1968 HIV Screening 1978 Hepatitis C Screening 1981 DTaP,Tdap,and Td Vaccines (1 - Tdap) 1982 Zoster Vaccines (1 of 2) 1982 Cologuard 2008 Fecal Occult Blood Test 2008 Sigmoidoscopy 2008 Influenza Vaccine (FLU shot) (#1) 2024 Depression Screening 08/07/2024 08/07/2023 Diabetes Screening 06/21/2027 06/21/2024, 0 06/07/2024, 05/31/2024, Additional history exists Lipid Panel 12/01/2028 12/01/2023, [...] this encounter Medical Devices Implanted Type Area Aircraft Instrument Tester Device Identifier Shelf Expiration Date Model / Serial / Lot Port Implant W/8f Poly Cath - [id number] Implanted:Qty : 1 on 05/06/2023 by Leonardo Castro DO at OR [facility] Right: Chest CR BARD : PERIPHERAL VASCULAR [id number] 07/16/2024 [id number] / / [id number] documented as of this encounter Visit Diagnoses Diagnosis Metastatic colon cancer to liver (HCC) Malignant neoplasm of colon, unspecified site documented in this encounter Care Teams Sand Buffer Relationship Specialty Start Date End Date Buddy Patel III, MD [address] [place] [address] PCP - General Family Medicine 04/29/23 documented as of this encounter
--- OUTSIDE RECORDS SUMMARY | 2024-10-25 01:11 | External Medical Summary | Summary of Care ---
Author Name Unknown Organization [facility] Address [address] [place] [address] Phone [phone] Care Team Providers Care Tablet Making Machine Operator Name Role Phone Amanda BROWN MD, Buddy Britton Primary Care Provider [phone] Reason for Visit * Reason Onset Date Comments Advice 06/22/2024 Encounter Details Date Type Department Care Team (Late st Contact Info) Description 06/22/2024 Telephone Family Practice [facility] 200 [facility] [place] [address] Buddy Patel III, MD [address] [place] [address] Advice Allergies No known active allergiesdocumented as [...] Sprays into each nostril in the morning. [place] hand to apply. 16 g 3 11/25/2023 [...] 06/03/2024 Active Clindamycin Phosphate 1 % External GelIndications:A cneiform rash Apply topically to affected area 2 times a day. Apply to rash on face 30 g 06/21/2024 Discontinue d(Medicatio n/Dose Changed) documented as of this encounter (statuses as [...] encounter Miscellaneous Notes * Telephone Encounter - Iliana Calabrese RN - 06/29/2024 3:35 PM EDT Left message for pt / sister to call back. Please address below. * Telephone Encounter - Buddy Patel III, MD - 06/24/2024 11:04 AM EDT Should be okay to wait * Telephone Encounter - Iliana Calabrese RN - 06/22/2024 3:45 PM EDT He got a prevnar 20 on 03/02/24. Do you know what 2nd shot he should get. OV mentions the 1st shingles shot on 03/02/24 but it doesn't look like he got it., * Telephone Encounter - Dionna Casiano OSA - 06/22/2024 3:14 PM EDT Patient's sister states that the patient was supposed to receive a second shot when he had his appointment on 06/24/24 with . Patient's sister states that the patient is not sure what the shot he received is and is concerned about waiting until 07/28/24 to receive the second shot. Patient's sister would like to know if it is ok for the patient to wait another month to receive the second shot. documented in this encounter Plan of Treatment Upcoming Encounters Date Type Department Care Team (Late st Contact Info) Description 07/12/2024 10:20 AM EDT Laboratory Laboratory [facility] [place] [address] [facility] [place] [phone] [facility] [address] [place] [address] 07/13/2024 11:00 AM EDT Office Visit Hematology/Oncology [facility] [place] 200 [facility] [place] [phone] Anahy Rowan CRNP [address] [place] [address] [place] [address] 07/13/2024 11:30 AM EDT Hem/Onc Treatment Hematology/Oncology Treatment, [place] [address] [facility] [address] [place] [phone] Verna, Chair 9 Hem Onc [address] [place] [address] 07/20/2024 10:45 AM EDT Imaging Radiology [facility] [place] [address] [facility] [place] [address] 07/28/2024 9:40 AM EDT Office Visit Family Practice [facility] [place] 200 [facility] [place] [address] Buddy Patel III, MD 200 [facility] [place] [address] Health Maintenance Due Date Last Done Comments [...] this encounter Medical Devices Implanted Type Area Invoice Classification Clerk Device Identifier Shelf Expiration Date Model / Serial / Lot Port Implant W/8f Poly Cath - [id number] Implanted:Qty : 1 on 05/06/2023 by Leonardo Castro, at OR [facility] Right: Chest CR BARD : PERIPHERAL VASCULAR [id number] 07/16/2024 [id number] / / [id number] documented as of this encounter Care Teams Tablet Making Machine Operator Relationship Specialty Start Date End Date Buddy Patel III, MD [address] [place] [address] PCP - General Family Medicine 04/29/23 documented as of this encounter
--- OUTSIDE RECORDS SUMMARY | 2024-10-25 01:11 | External Medical Summary ---
Author Name Unknown Address Unknown Organization K09[facility] [address] Laboratory Report Ordering Provider Test Date Status TEJAS TORRES 06/28/2024 09:42:31 Final Observation Date Value Abnormality Reference (Units ) Status Magnesium 06/28/2024 09:42:31 2.1 1.5-2.6 (m g/dL) Final Performing Location [facility] [place] [address]
--- OUTSIDE RECORDS SUMMARY | 2024-10-25 01:11 | External Medical Summary | Summary of Care ---
Author Name Unknown Organization [facility] Address [address] [place] [address] Phone [phone] Care Team Providers Care Rn Ccu Name Role Phone Amanda BROWN MD, Buddy Britton Primary Care Provider [phone] Reason for Visit * Reason Onset Date Comments Medication Problem 06/27/2024 Clindamycin 1 % Gel Encounter Details Date Type Department Care Team (Late st Contact Info) Description 06/27/2024 Refill Hematology/Oncology [facility] [place] 200 [place] [address] Breann Moore CRNP 400 [place] [address] Acneiform rash* Allergies No known active allergiesdocumented as of this encounter (statuses as of 06/27/2024) Medications Medication Sig Dispensed Refills Start Date [...] Sprays into each nostril in the morning. [place] hand to apply. 16 g 3 11/25/2023 [...] rash on face. 30 mL 06/27/2024 Active Clindamycin Phosphate 1 % External GelIndications:A cneiform rash Apply topically to affected area 2 times a day. Apply to rash on face 30 g 06/21/2024 Discontinue d(Medicatio n/Dose Changed) documented as of this encounter (statuses as of 06/27/2024) Active Problems Problem Noted Date Diagnosed Date Metastatic colon cancer to liver 11/25/2023 Protein-calorie malnutrition 08/07/2023 Malignant neoplasm of sigmoid colon 04/22/2023 Encounter for antineoplastic chemotherapy 2022 documented as of this encounter (statuses as of 06/27/2024) Immunizations Name Administration Dates Next Due Pneumococcal [...] Telephone Encounter - Diana Bo LPN - 06/27/2024 3:36 PM EDT Breann: Fax clarification request received from [facility].. "Clindamycin 1% gel is not formulary" Pharmacy is requesting a prescription change to the Clindamycin Solution per patient's insurance. Script pended below documented in this encounter Plan of Treatment Upcoming Encounters Date Type Department Care Team (Late st Contact Info) Description 06/28/2024 10:30 AM EDT Laboratory [facility] [address] [place] [address] [phone] [place] [address] 06/29/2024 11:00 AM EDT Office Visit Hematology/Oncology [facility] [address] [place] [address] [phone] Yanet Berg MD 200 [place] [address] 06/29/2024 11:30 AM EDT Hem/Onc Treatment Hematology/Oncology [facility] [place] [address] [facility] [address] [place], [place] [phone] Park, Chair 11 Hem Onc [facility] 200 [place] [address] 07/13/2024 11:00 AM EDT Office Visit Hematology/Oncology [facility] [place] [address] [facility] [place] [phone] Anahy Rowan CRNP [address] [place] [address] 07/28/2024 9:40 AM EDT Office Visit Family Practice [facility] [place] [address] [facility] [place], [place] [address] Buddy Patel III, MD 200 [facility] [place], [place] [address] Health Maintenance Due Date Last Done Comments [...] this encounter Medical Devices Implanted Type Area Special Events Driver Device Identifier Shelf Expiration Date Model / Serial / Lot Port Implant W/8f Poly Cath - [id number] Implanted:Qty : 1 on 05/06/2023 by Leonardo Castro DO at OR [facility] Right: Chest CR BARD : PERIPHERAL VASCULAR [id number] 07/16/2024 [id number] / / [id number] documented as of this encounter Visit Diagnoses Diagnosis Acneiform rash- Primary Contact dermatitis and other eczema, due to unspecified cause documented in this encounter Care Teams Rn Ccu Relationship Specialty Start Date End Date Buddy Patel III, MD 200 [facility] [place] [address] PCP - General Family Medicine 04/29/23 documented as of this encounter
--- OUTSIDE RECORDS SUMMARY | 2024-10-25 01:11 | External Medical Summary | Summary of Care ---
Author Name Unknown Organization [facility] Address [address] [place] [address] Phone [phone] Care Team Providers Care Mold Forms Builder Name Role Phone Amanda BROWN MD, Buddy Britton Primary Care Provider [phone] Encounter Details Date Type Department Care Team (Late st Contact Info) Description 06/26/2024 Orders Only Hematology/Oncology, [facility] [address] [place] [address] Yanet Berg MD [address] [place] [address] Allergies No known active allergiesdocumented as of this encounter (statuses as of 06/26/2024) Medications Medication Sig Dispensed Refills Start Date [...] Sprays into each nostril in the morning. [place] hand to apply. 16 g 3 11/25/2023 [...] 06/03/2024 Active Clindamycin Phosphate 1 % External GelIndications:Acn eiform rash Apply topically to affected area 2 times a day. Apply to rash on face 30 g 06/21/2024 Active documented as of this encounter (statuses as of 06/26/2024) Active Problems Problem Noted Date Diagnosed Date Metastatic colon cancer to liver 11/25/2023 Protein-calorie malnutrition 08/07/2023 Malignant neoplasm of sigmoid colon 04/22/2023 Encounter for antineoplastic chemotherapy 2022 documented as of this encounter (statuses as of 06/26/2024) Immunizations Name Administration Dates Next Due Pneumococcal [...] Description 06/28/2024 10:30 AM EDT Laboratory Laboratory [facility] Verna [place] [address] [place] [phone] Verna Lab [facility] [address] [place] [address] [address] 06/29/2024 11:00 AM EDT Office Visit Hematology/Oncology [place] [address] [place] [phone] Yanet Berg MD [address] [place] [address] 06/29/2024 11:30 AM EDT Hem/Onc Treatment Hematology/Oncology Treatment [place] [address] [place] [phone] Verna, Chair 11 Hem Onc [facility] [place] [address] 07/13/2024 11:00 AM EDT Office Visit Hematology/Oncology [facility] [address] [place] [phone] Anahy Rowan CRNP [address] [place] [address] [place] [address] 07/28/2024 9:40 AM EDT Office Visit Family Practice [facility] 200 [facility] [place] [place] [address] Buddy Patel III, MD 200 [facility] [place] [address] Health Maintenance Due Date Last Done Comments [...] this encounter Medical Devices Implanted Type Area Compass Operator Device Identifier Shelf Expiration Date Model / Serial / Lot Port Implant W/8f Poly Cath - [id number] Implanted:Qty : 1 on 05/06/2023 by Leonardo Castro DO at OR [facility] Right: Chest CR BARD : PERIPHERAL VASCULAR [id number] 07/16/2024 [id number] / / [id number] documented as of this encounter Care Teams Mold Forms Builder Relationship Specialty Start Date End Date Buddy Patel III, MD [address] [place] [address] [address] PCP - General Family Medicine 04/29/23 documented as of this encounter
--- OUTSIDE RECORDS SUMMARY | 2024-10-25 01:12 | External Medical Summary | Summary of Care ---
Author Name Unknown Organization [facility] Address [address] [place] [address] Phone [phone] Care Team Providers Care Tailings Dam Laborer Name Role Phone Amanda BROWN MD, Buddy Britton Primary Care Provider [phone] Reason for Visit * Reason Comments Procedure Pump d/c. * Episode Based Medications (Routine) - Authorized Specialty Diagnoses / Procedures Referred By Yany severino Referred To Contact Diagnoses Malignant neoplasm of sigmoid colon (HCC) Encounter for antineoplastic chemotherapy Procedures TX LEUCOVORIN CALCIUM INJECTION TX PALONOSETRON HCL TX FLUOROURACIL INJECTION TX IRINOTECAN INJECTION TX PANITUMUMAB INJECTION Yanet Berg MD 200 [facility] [place] [address] Anc Hem/Onc [address] [address] Referral ID Status Reason Start Date Expiration Date V isits Requested Visits Authorized [id number] Authorized 05/04/2024 10/16/2099 999 [id number] Encounter Details Date Type Department Care Team (Late st Contact Info) Description 05/20/2024 1:30 PM EDT Nurse Only Hematology/Oncology Treatment, [address] [phone] Verna, Chair 4 Hem Onc [address] [place] [address] Procedure (Pump d/c. ) Allergies No known active allergiesdocumented as of this encounter (statuses as of 06/24/2024) Medications Medication Sig Dispensed Refills Start Date [...] Sprays into each nostril in the morning. [place] hand to apply. 16 g 3 [...] as needed for Pain, Severe. 120 Tablet 05/04/2024 4 Discontinue d(Refill) documented as of this encounter (statuses as of 06/24/2024) Active Problems Problem Noted Date Diagnosed Date Metastatic colon cancer to liver 11/25/2023 Protein-calorie malnutrition 08/07/2023 Malignant neoplasm of sigmoid colon 04/22/2023 Encounter for antineoplastic chemotherapy 2022 documented as of this encounter (statuses as of 06/24/2024) Immunizations Name Administration Dates Next Due Pneumococcal [...] Nursing Notes * Eva Martinez RN - 05/20/2024 1:42 PM EDT Chair 5. Patient arrived for pump d/c with no acute complaints., CADD pump was empty and all medication was infused. Port flushed with saline and heparin and dressing applied, Patient tolerated procedure well. Discharged in stable condition. documented in this encounter Plan of Treatment Upcoming Encounters Date Type Department Care Team (Late st Contact Info) Description 06/28/2024 10:30 AM EDT Laboratory [facility] [address] [place] [phone] Verna [facility] 200 [facility] [place] [address] 06/29/2024 11:00 AM EDT Office Visit Hematology/Oncology [facility] [place] 200 [facility] [place], [place] [phone] Yanet Berg MD 200 [facility] [place], [place] [address] 06/29/2024 11:30 AM EDT Hem/Onc Treatment Hematology/Oncology Treatment, [place] [address] [facility] [address] [place], [place] [phone] Verna, Chair 11 Hem Onc [address] [place] [address] 07/13/2024 11:00 AM EDT Office Visit Hematology/Oncology [facility] [place] 200 [facility] [place], [place] [phone] Anahy Rowan CRNP [address] [place] [address] 07/28/2024 9:40 AM EDT Office Visit Family Practice [facility] [place] 200 [facility] [place], [place] [address] Buddy Patel III, MD 200 [facility] [place], [place] [address] Health Maintenance Due Date Last Done Comments [...] encounter Medical Devices Implanted Type Area Machine Engineer Device Identifier Shelf Expiration Date Model / Serial / Lot Port Implant W/8f Poly Cath - [id number] Implanted:Qty : 1 on 05/06/2023 by Leonardo Castro DO at OR [facility] Right: Chest CR BARD : PERIPHERAL VASCULAR [id number] 07/16/2024 [id number] / / [id number] documented as of this encounter Visit Diagnoses Diagnosis Malignant neoplasm of sigmoid colon (HCC)- Primary Malignant neoplasm of sigmoid colon Encounter for antineoplastic chemotherapy Encounter for central line care Fitting and adjustment of vascular catheter documented in this encounter Administered Medications Inactive Administered Medications - up to 3 most recent administrations Medication Order MAR Action Action Date Dose Rate Site hEParin 100 UNIT/ML Lock Flush inj 500 Units 500 Units (5 mL), IV Lock, PRN Other, IV Flush, Starting on Thu05/20/24 at 1325, Until Thu05/20/24 at 1744, For 24 hours, Do not flush if lock, PICC, or central line not in place; IV infusing or unable to flush. Given 05/20/2024 1:27 PM EDT 500 Units sodium chloride 0.9 % flush central line 10 mL 10 mL, IV Push, PRN Other, IV Flush, Starting on Thu05/20/24 at 1325, Until Thu05/20/24 at 1744, For 24 hours, Do not flush if lock, PICC, or central line not in place; IV infusing or unable to flush. Given 05/20/2024 1:27 PM EDT 10 mL documented in this encounter Care Teams Tailings Dam Laborer Relationship Specialty Start Date End Date Buddy Patel III, MD [address] [place] [address] PCP - General Family Medicine 04/29/23 documented as of this encounter
--- OUTSIDE RECORDS SUMMARY | 2024-10-25 01:12 | External Medical Summary | Summary of Care ---
Author Name Unknown Organization [facility] Address [address] [place] [address] Phone [phone] Care Team Providers Care Engine Manager Name Role Phone Amanda BROWN MD, Buddy Britton Primary Care Provider [phone] Reason for Visit * Reason Comments Chemotherapy C1/D1 - VECTIBIX/FOL FIRI * Episode Based Medications (Routine) - Authorized Specialty Diagnoses / Procedures Referred By Yany t Referred To Contact Diagnoses Malignant neoplasm of sigmoid colon (HCC) Encounter for antineoplastic chemotherapy Procedures [place] LEUCOVORIN CALCIUM INJECTION TN PALONOSETRON HCL TN FLUOROURACIL INJECTION TN IRINOTECAN INJECTION TN PANITUMUMAB INJECTION Yanet Berg MD 200 [place] [address] Anc Hem/Onc [address] [address] Referral ID Status Reason Start Date Expiration Date V isits Requested Visits Authorized [id number] Authorized 05/04/2024 10/16/2099 999 999 Encounter Details Date Type Department Care Team (Latest Contact Info) Description 05/18/2024 12:00 PM EDT Hem/Onc Treatment Hematology/Oncolog y Treatment, [address] [address] Verna, Chair 3 Hem On[address] [place] [address] Malignant neoplasm of sigmoid colon [...] Sprays into each nostril in the morning. [place] hand to apply. 16 g 3 11/25/2023 [...] Sign Reading Time Taken Comments Blood Pressure 96/69 05/18/2024 11:22 AM EDT Pulse 65 05/18/2024 11:22 AM EDT Temperature 36.1 C (97 F) 05/18/2024 11:22 AM EDT Respiratory Rate 16 05/18/2024 11:22 AM EDT Oxygen Saturation 92% 05/18/2024 11:22 AM EDT Inhaled Oxygen Concentration - - Weight 88.3 kg (194 lb 9.6 oz) 05/18/2024 11:22 AM EDT Height - - Body Mass Index 29.59 02/23/2024 9:11 AM EDT documented in this encounter Nursing Notes * Victoria Botello RN - 05/18/2024 3:52 PM EDT Goals: Patient will remain free from injury. Possible barriers to meeting goals: ambulating with IV pole Stability of the patient: Moderately stable - low risk of patient condition declining or worsening Summary regarding today's goals: Met: pt remained free of harm today Patient tolerated treatment well without any acute issues or problems. 5FU pump connected by BIBI YI. Patient left facility in stable condition and denied any further needs. * Victoria Botello RN - 05/18/2024 11:17 AM EDT Chair 9. Patient here today for new chemo treatment, has had other chemo treatments in the past recently. Patient will start FOLFIRI + Vectibix today. He is accompanied by sister today. Overall feeling well for treatment today. Patient met with Nicholas Contreras RN before coming to treatment room today, to review this current treatment he will receive. Patient denied any further questions or concerns at this time. Chemotherapy/Immunotherapy agents: VECTIBIX, 5FU, IRINOTECAN, and LEUCOVORIN Consent for chemotherapy drug treatment complete, dated, and signed? yes, date - 05/04/2024 Treatment lab parameters met? Yes Has treatment weight changed > than 10%? No Treatment preauthorized? Yes VITALS Filed Vitals: 05/18/24 1122 BP: 96/69 Pulse: 65 Resp: 16 Temp: 36.1 C (97 F) TempSrc: Tympanic SpO2: 92% Weight: 88.3 kg (194 lb 9.6 oz) Urine protein: N/A Patient [...] symptoms or adverse side effects during treatment. PRE-TREATMENT ASSESSMENT: NEURO: Fatigue: energy levels have not been great for several months but still able to wake up and do whathe need to do CV/RESP: denies symptoms GI/: diarrhea: has had diarrhea since starting treatments in general, no worse, educated about giving IVP atropine and that Irinotecan can cause diarrhea as well. Patient understands OTHER: denies any additional symptoms PAIN: 0 Safety and Risk for Injury Patient will remain free from injury. Ensure appropriate safety devices are available. Provide and maintain safe environment. * Brenda Cantrell RN - 05/17/2024 10:40 AM EDT AST 85, alk phos 368, bili 1.3, ALT [address] Berg- elevated liver enzymes related to recent disease progression, patient is starting new treatment tomorrow. Ok to proceed. documented in this encounter Plan of Treatment Upcoming Encounters Date Type Department Care Team (Late st Contact Info) Description 06/28/2024 10:30 AM EDT Laboratory Laboratory [facility] [place] [address] [place] [phone] Verna Lab [facility] 200 [facility] [place] [address] [address] 06/29/2024 11:00 AM EDT Office Visit Hematology/Oncology [facility] [place] [address] [place] [phone] Yanet Berg MD [address] [place] [address] 06/29/2024 11:30 AM EDT Hem/Onc Treatment Hematology/Oncology Treatment, [place] [address] [place] [phone] Verna, Chair 11 Hem Onc Scene 200 [facility] [place] [address] 07/13/2024 11:00 AM EDT Office Visit Hematology/Oncology [facility] 200 [facility] [place] [address] Anah[facility] Rowan [facility]NP [facility] [place] [address] 07/28/2024 9:40 AM EDT Office Visit Family Practice [facility] 200 [facility] [place] [address] Buddy Patel III, MD 200 [facility] [place] [address] Health Maintenance Due Date Last Done Comments [...] this encounter Medical Devices Implanted Type Area Stock Supervisor Device Identifier Shelf Expiration Date Model / Serial / Lot Port Implant W/8f Poly Cath - [id number] Implanted:Qty : 1 on 05/06/2023 by Leonardo Castro DO at OR [facility] Right: Chest CR BARD : PERIPHERAL VASCULAR [id number] 07/16/2024 [id number] / / [id number] documented as of this encounter Visit Diagnoses Diagnosis Malignant neoplasm of sigmoid colon (HCC)- Primary Malignant neoplasm of sigmoid colon Encounter for antineoplastic chemotherapy documented in this encounter Administered Medications Inactive Administered Medications - up to 3 most recent administrations Medication Order MAR Action Action Date Dose Rate Site Atropine sulfate inj 0.4 mg 0.4 mg, IV Push, ONCE, On Thu05/18/24 at 1215, For 1 dose, Administer prior to irinotecan. Given 05/18/2024 1:35 PM EDT 0.4 mg dexAMETHasone (Decadron) tab 12 mg 12 mg, Oral, ONCE, On Thu05/18/24 at 1215, For 1 dose Given 05/18/2024 12:19 PM EDT 12 mg Fluorouracil (5-Fu) 4,975 mg for Home Infusion 4,975 mg (rounded from 4,968 mg = 2,400 mg/m2 2.07 m2 Treatment Plan BSA from Recorded weight), Intravenous, Administer over 46 Hours, Home Infusion Pharmacy to specify base solution and volume., ONCE, 1 dose, On Thu05/18/24 at 1145 Start Infusion 05/18/2024 3:18 PM EDT 4,975 mg 3 mL/hr Fluorouracil (5-Fu) inj 825 mg 825 mg (rounded from 828 mg = 400 mg/m2 2.07 m2 Treatment Plan BSA from Recorded weight), IV Push, ONCE, 1 dose, On Thu05/18/24 at 1215 Given 05/18/2024 3:13 PM EDT 825 mg irinotecan HCl (Camptosar) 380 mg in D5W 500 mL infusion 380 mg (rounded from 372.6 mg = 180 mg/m2 2.07 m2 Treatment Plan BSA from Recorded weight), IV Piggyback, ONCE, 1 dose, On Thu05/18/24 at 1215, Administer over 90 Minutes, PROTECT FROM LIGHT Start Infusion 05/18/2024 1:37 PM EDT 380 mg 352.67 mL/hr leucovorin calcium 850 mg in D5W 250 mL INFUSION 850 mg (rounded from 828 mg = 400 mg/m2 2.07 m2 Treatment Plan BSA from Recorded weight), IV Piggyback, ONCE, 1 dose, On Thu05/18/24 at 1215, Administer over 90 Minutes, Run over 90 minutes, prior to 5-FU Start Infusion 05/18/2024 1:37 PM EDT 850 mg 170 mL/hr NSS infusion Intravenous, at 50 mL/hr, PRN, Starting on Thu05/18/24 at 0830, Until Thu05/18/24 at 1954, Maintenance line Start Infusion 05/18/2024 12:20 PM EDT 50 mL/hr Palonosetron (Aloxi) inj SOLN 0.25 mg 0.25 mg, IV Push, ONCE, On Thu05/18/24 at 1215, For 1 dose, Restricted per [facility] antiemetic guidelines Given 05/18/2024 12:19 PM EDT 0.25 mg Panitumumab (Vectibix) 500 mg in NSS 100 mL infusion 500 mg (rounded from 537 mg = 6 mg/kg 89.5 kg Treatment plan Recorded weight), IV Piggyback, ONCE, 1 dose, On Thu05/18/24 at 1215, Administer over 60 Minutes, Must be infused through a 0.22 micron filter. Doses 1000 mg or less infuse over 60 minutes. If first infusion tolerated, subsequent doses may be administered over 30 to 60 minutes. Doses greater than 1000 mg infuse over 90 minutes. Start Infusion 05/18/2024 12:25 PM EDT 500 mg 100 mL/hr sodium chloride 0.9 % flush central line 10 mL 10 mL, IV Push, PRN Other, IV Flush, Starting on Thu05/18/24 at 1137, Until Thu05/18/24 at 1954, For 24 hours, Do not flush if lock, PICC, or central line not in place; IV infusing or unable to flush. Given 05/18/2024 3:13 PM EDT 10 mL documented in this encounter Care Teams Engine Manager Relationship Specialty Start Date End Date Amanda BROWN, Buddy Britton MD 200 [facility] [place], [place] [address] PCP - General Family Medicine 04/29/23 documented as of this encounter
--- OUTSIDE RECORDS SUMMARY | 2024-10-25 01:12 | External Medical Summary | Summary of Care ---
Author Name Unknown Organization [facility] Address [address] [place] [address] Phone [phone] Care Team Providers Care Women'S Ministry Director Name Role Phone Amanda BROWN MD, Buddy Britton Primary Care Provider [phone] Reason for Visit * Reason Comments Chemotherapy C1/D1 - VECTIBIX/FOL FIRI * Episode Based Medications (Routine) - Authorized Specialty Diagnoses / Procedures Referred By Yany t Referred To Contact Diagnoses Malignant neoplasm of sigmoid colon (HCC) Encounter for antineoplastic chemotherapy Procedures [place] LEUCOVORIN CALCIUM INJECTION W[place] PALONOSETRON HCL W[place] FLUOROURACIL INJECTION W[place] IRINOTECAN INJECTION W[place] PANITUMUMAB INJECTION Yanet Berg MD 200 [place] [address] Anc Hem/Onc [address] [address] Referral ID Status Reason Start Date Expiration Date V isits Requested Visits Authorized [id number] Authorized 05/04/2024 10/16/2099 999 999 Encounter Details Date Type Department Care Team (Latest Contact Info) Description 05/18/2024 12:00 PM EDT Hem/Onc Treatment Hematology/Oncolog y Treatment, [address] [address] Verna, Chair [address] Hem [address] [place] [address] Malignant neoplasm of sigmoid [...] Sprays into each nostril in the morning. [place] hand to apply. 16 g 3 11/25/2023 [...] Description 06/28/2024 10:30 AM EDT Laboratory Laboratory [facility] [place] [address] [place] [phone] Verna Lab [facility] [place] [address] [address] 06/29/2024 11:00 AM EDT Office Visit Hematology/Oncology [facility] [place] [address] [place] [phone] Yanet Berg MD [address] [place] [address] 06/29/2024 11:30 AM EDT Hem/Onc Treatment Hematology/Oncology Treatment, [place] [address] [place] [phone] Verna, Chair 11 Hem Onc Scene [address] [facility] [place] [address] 07/13/2024 11:00 AM EDT Office Visit Hematology/Oncology [facility] [address] [facility] [place] [address] Anahy Rowan CRNP 400 [facility] [place] [address] 07/28/2024 9:40 AM EDT Office Visit Family Practice [facility] [address] [facility] [place] [address] Buddy Patel III, MD [address] [facility] [place] [address] Health Maintenance Due Date Last Done Comments [...] this encounter Medical Devices Implanted Type Area Canal Boat Operator Device Identifier Shelf Expiration Date Model / Serial / Lot Port Implant W/8f Poly Cath - [id number] Implanted:Qty : 1 on 05/06/2023 by Leonardo Castro DO at OR [facility] Right: Chest CR BARD : PERIPHERAL VASCULAR [id number] 07/16/2024 [id number] / / [id number] documented as of this encounter Visit Diagnoses [...] at 1215, For 1 dose, Restricted per [facility] antiemetic guidelines Given 05/18/2024 12:19 PM EDT [...] mL documented in this encounter Care Teams Women'S Ministry Director Relationship Specialty Start Date End Date Amanda BROWN, Buddy Britton MD [address] [facility] [place], [place] [address] PCP - General Family Medicine 04/29/23 documented as of this encounter
--- OUTSIDE RECORDS SUMMARY | 2024-10-25 01:12 | External Medical Summary | Summary of Care ---
Author Name Unknown Organization [facility] Address [address] [place] [address] Phone [phone] Care Team Providers Care Religion Teacher Name Role Phone Amanda BROWN MD, Buddy Britton Primary Care Provider [phone] Reason for Visit * Reason Comments Chemotherapy C1/D1 - VECTIBIX/FOL FIRI * Episode Based Medications (Routine) - Authorized Specialty Diagnoses / Procedures Referred By Yany t Referred To Contact Diagnoses Malignant neoplasm of sigmoid colon (HCC) Encounter for antineoplastic chemotherapy Procedures ID LEUCOVORIN CALCIUM INJECTION ID PALONOSETRON HCL ID FLUOROURACIL INJECTION ID IRINOTECAN INJECTION ID PANITUMUMAB INJECTION Yanet Berg MD 200 [place] [address] Anc Hem/Onc [address] [address] Referral ID Status Reason Start Date Expiration Date V isits Requested Visits Authorized [id number] Authorized 05/04/2024 10/16/2099 999 999 Encounter Details Date Type Department Care Team (Latest Contact Info) Description 05/18/2024 12:00 PM EDT Hem/Onc Treatment Hematology/Oncolog y Treatment, [address] [address] Verna, Chair 3 Hem Onc [address] [place] [address] Malignant neoplasm of sigmoid [...] Sprays into each nostril in the morning. [place] hand to apply. 16 g 3 11/25/2023 [...] Description 06/28/2024 10:30 AM EDT Laboratory Laboratory [facility] [place] [address] [place] [address] Verna Lab [facility] 200 [facility] [place] [address] [address] 06/29/2024 11:00 AM EDT Office Visit Hematology/Oncology [facility] [place] [address] [place] [phone] Yanet Berg MD [address] [place] [address] 06/29/2024 11:30 AM EDT Hem/Onc Treatment Hematology/Oncology Treatment, [place] [address] [place] [phone] Verna, Chair 11 Hem Onc Scene 200 [facility] [place] [address] 07/13/2024 11:00 AM EDT Office Visit Hematology/Oncology [facility] 200 [facility] [place] [address] Anahy Rowan CRNP [facility] [place] [address] 07/28/2024 9:40 AM EDT Office Visit Family Practice [facility] 200 [facility] [place] [address] Buddy Patel III, MD 200 [facility] [place] [address] Health Maintenance Due Date Last Done Comments [...] encounter Medical Devices Implanted Type Area Electrical Line Worker Device Identifier Shelf Expiration Date Model / Serial / Lot Port Implant W/8f Poly Cath - [id number] Implanted:Qty : 1 on 05/06/2023 by Leonardo Castro DO at OR [facility] Right: Chest CR BARD : PERIPHERAL VASCULAR [id number] 07/16/2024 [id number] / / [id number] documented as of this encounter Visit Diagnoses [...] at 1215, For 1 dose, Restricted per [facility] antiemetic guidelines Given 05/18/2024 12:19 [...] mL documented in this encounter Care Teams Religion Teacher Relationship Specialty Start Date End Date Amanda BROWN, Buddy Britton MD 200 [facility] [place] [address] PCP - General Family Medicine 04/29/23 documented as of this encounter
--- OUTSIDE RECORDS SUMMARY | 2024-10-25 01:12 | External Medical Summary | Summary of Care ---
Author Name Unknown Organization [facility] Address [address] [place] [address] Phone [phone] Care Team Providers Care Food Processing Plant Manager Name Role Phone Amanda BROWN MD, Buddy Britton Primary Care Provider [phone] Reason for Visit * Reason Comments Chemotherapy C1/D1 - VECTIBIX/FOL FIRI * Episode Based Medications (Routine) - Authorized Specialty Diagnoses / Procedures Referred By Yany t Referred To Contact Diagnoses Malignant neoplasm of sigmoid colon (HCC) Encounter for antineoplastic chemotherapy Procedures ID LEUCOVORIN CALCIUM INJECTION ID PALONOSETRON HCL ID FLUOROURACIL INJECTION ID IRINOTECAN INJECTION ID PANITUMUMAB INJECTION Yanet Berg MD 200 [place] [address] Anc Hem/Onc [address] [address] Referral ID Status Reason Start Date Expiration Date V isits Requested Visits Authorized [id number] Authorized 05/04/2024 10/16/2099 999 999 Encounter Details Date Type Department Care Team (Latest Contact Info) Description 05/18/2024 12:00 PM EDT Hem/Onc Treatment Hematology/Oncolog y Treatment, [address] [address] Verna, Chair [address] [place] [address] Malignant neoplasm of sigmoid [...] Sprays into each nostril in the morning. [place] hand to apply. 16 g 3 11/25/2023 [...] Description 06/28/2024 10:30 AM EDT Laboratory Laboratory [facility] [place] [address] [place] [phone] Verna Lab [facility] 200 [facility] [place] [address] [address] 06/29/2024 11:00 AM EDT Office Visit Hematology/Oncology [facility] [place] [address] [place] [phone] Yanet Berg MD [address] [place] [address] 06/29/2024 11:30 AM EDT Hem/Onc Treatment Hematology/Oncology Treatment, [place] [address] [place] [address] Verna, Chair 11 Hem Onc Scene 200 [facility] [place] [address] 07/13/2024 11:00 AM EDT Office Visit Hematology/Oncology [facility] 200 [facility] [place] [address] Anahy Rowan CRNP 400 [facility] [place] [address] 07/28/2024 9:40 AM EDT Office Visit Family Practice [facility] 200 [facility] [place] [address] Buddy Patel III, MD 200 [facility] [place] [address] Health Maintenance Due Date Last Done Comments [...] this encounter Medical Devices Implanted Type Area Power Shear Operator Device Identifier Shelf Expiration Date Model / Serial / Lot Port Implant W/8f Poly Cath - [id number] Implanted:Qty : 1 on 05/06/2023 by Leonardo Castro DO at OR [facility] Right: Chest CR BARD : PERIPHERAL VASCULAR [id number] 07/16/2024 [id number] / / [id number] documented as of this encounter Visit Diagnoses [...] at 1215, For 1 dose, Restricted per [facility] antiemetic guidelines Given 05/18/2024 12:19 [...] mL documented in this encounter Care Teams Food Processing Plant Manager Relationship Specialty Start Date End Date Amanda BROWN, Buddy Britton MD 200 [facility] [place] [address] PCP - General Family Medicine 04/29/23 documented as of this encounter
--- OUTSIDE RECORDS SUMMARY | 2024-10-25 01:12 | External Medical Summary | Summary of Care ---
Author Name Unknown Organization [facility] Address [address] [place] [address] Phone [phone] Care Team Providers Care Podiatric Medicine Doctor Name Role Phone Amanda BROWN MD, Buddy Britton Primary Care Provider [phone] Reason for Visit * Reason Comments Chemotherapy C1/D1 - VECTIBIX/FOL FIRI * Episode Based Medications (Routine) - Authorized Specialty Diagnoses / Procedures Referred By Yany t Referred To Contact Diagnoses Malignant neoplasm of sigmoid colon (HCC) Encounter for antineoplastic chemotherapy Procedures [place] LEUCOVORIN CALCIUM INJECTION CO PALONOSETRON HCL CO FLUOROURACIL INJECTION CO IRINOTECAN INJECTION CO PANITUMUMAB INJECTION Yanet Berg MD 200 [place] [address] Anc Hem/Onc [address] [address] Referral ID Status Reason Start Date Expiration Date V isits Requested Visits Authorized [id number] Authorized 05/04/2024 10/16/2099 999 999 Encounter Details Date Type Department Care Team (Latest Contact Info) Description 05/18/2024 12:00 PM EDT Hem/Onc Treatment Hematology/Oncolog y Treatment, [address] [address] Verna, Chair 3 Hem [address] [place] [address] Malignant neoplasm of sigmoid colon (HCC)*; [...] Sprays into each nostril in the morning. [place] hand to apply. 16 g 3 11/25/2023 [...] Description 06/28/2024 10:30 AM EDT Laboratory Laboratory [facility] [place] [address] [place] [address] Verna Lab [facility] 200 [facility] [place] [address] [address] 06/29/2024 11:00 AM EDT Office Visit Hematology/Oncology [facility] [place] [address] [place] [phone] Yanet Berg MD [address] [place] [address] 06/29/2024 11:30 AM EDT Hem/Onc Treatment Hematology/Oncology Treatment, [place] [address] [place] [phone] Verna, Chair 11 Hem Onc Scene 200 [facility] [place] [address] 07/13/2024 11:00 AM EDT Office Visit Hematology/Oncology [facility] 200 [facility] [place] [address] Anahy Rwoan CRNP 400 [facility] [place] [address] 07/28/2024 9:40 AM EDT Office Visit Family Practice [facility] 200 [facility] [place] [address] Buddy Patel III, MD 200 [facility] [place] [address] Health Maintenance Due Date Last Done Comments [...] this encounter Medical Devices Implanted Type Area Sheet Metal Welder Device Identifier Shelf Expiration Date Model / Serial / Lot Port Implant W/8f Poly Cath - [id number] Implanted:Qty : 1 on 05/06/2023 by Leonardo Castro DO at OR [facility] Right: Chest CR BARD : PERIPHERAL VASCULAR [id number] 07/16/2024 [id number] / / [id number] documented as of this encounter Visit Diagnoses [...] at 1215, For 1 dose, Restricted per [facility] antiemetic guidelines Given 05/18/2024 12:19 PM EDT [...] mL documented in this encounter Care Teams Podiatric Medicine Doctor Relationship Specialty Start Date End Date Amanda BROWN, Bdudy Britton MD 200 [facility] [place], [place] [address] PCP - General Family Medicine 04/29/23 documented as of this encounter
--- OUTSIDE RECORDS SUMMARY | 2024-10-25 01:12 | External Medical Summary | Summary of Care ---
Author Name Unknown Organization [facility] Address [address] [place] [address] Phone [phone] Care Team Providers Care Hook And Eye Attacher Name Role Phone Amanda BROWN MD, Buddy Britton Primary Care Provider [phone] Reason for Visit * Reason Comments Chemotherapy C1/D1 - VECTIBIX/FOL FIRI * Episode Based Medications (Routine) - Authorized Specialty Diagnoses / Procedures Referred By Yany t Referred To Contact Diagnoses Malignant neoplasm of sigmoid colon (HCC) Encounter for antineoplastic chemotherapy Procedures [place] LEUCOVORIN CALCIUM INJECTION PA PALONOSETRON HCL PA FLUOROURACIL INJECTION PA IRINOTECAN INJECTION PA PANITUMUMAB INJECTION Yanet Berg MD 200 [place] [address] Anc Hem/Onc [address] [address] Referral ID Status Reason Start Date Expiration Date V isits Requested Visits Authorized [id number] Authorized 05/04/2024 10/16/2099 999 [id number] Encounter Details Date Type Department Care Team (Latest Contact Info) Description 05/18/2024 12:00 PM EDT Hem/Onc Treatment Hematology/Oncolog y Treatment, [address] [address] Verna, Chair [address] [place] [address] Malignant neoplasm of sigmoid colon (HCC)*; [...] Sprays into each nostril in the morning. [place] hand to apply. 16 g 3 11/25/2023 [...] Description 06/28/2024 10:30 AM EDT Laboratory Laboratory [facility] [place] [address] [place] [phone] Verna Lab [facility] 200 [facility] [place] [address] 06/29/2024 11:00 AM EDT Office Visit Hematology/Oncology [facility] [place] [address] [place] [phone] Yanet Berg MD [address] [place] [address] 06/29/2024 11:30 AM EDT Hem/Onc Treatment Hematology/Oncology Treatment, [place] [address] [place] [phone] Verna, Chair 11 Hem Onc [place] 200 [facility] [place] [address] 07/13/2024 11:00 AM EDT Office Visit Hematology/Oncology [facility] 200 [facility] [place] [address] An[facility] Rowan [facility] [place] [address] 07/28/2024 9:40 AM EDT Office Visit Family Practice [facility] 200 [facility] [place] [address] Buddy Patel III, MD 200 [facility] [place] [address] Health Maintenance Due Date Last Done Comments [...] encounter Medical Devices Implanted Type Area Tube Sizer And Cutter Operator Device Identifier Shelf Expiration Date Model / Serial / Lot Port Implant W/8f Poly Cath - [id number] Implanted:Qty : 1 on 05/06/2023 by Leonardo Castro DO at OR [facility] Right: Chest CR BARD : PERIPHERAL VASCULAR [id number] 07/16/2024 [id number] / / [id number] documented as of this encounter Visit Diagnoses [...] at 1215, For 1 dose, Restricted per [facility] antiemetic guidelines Given 05/18/2024 12:19 PM [...] mL documented in this encounter Care Teams Hook And Eye Attacher Relationship Specialty Start Date End Date Amanda BROWN, Buddy Britton MD 200 [facility] [place] [address] PCP - General Family Medicine 04/29/23 documented as of this encounter
--- OUTSIDE RECORDS SUMMARY | 2024-10-25 01:12 | External Medical Summary | Summary of Care ---
Author Name Unknown Organization [facility] Address [address] [place] [address] Phone [phone] Care Team Providers Care Wire Coating Machine Operator Name Role Phone Amanda BROWN MD, Buddy Britton Primary Care Provider [phone] Reason for Visit * Reason Comments Chemotherapy C1/D1 - VECTIBIX/FOL FIRI * Episode Based Medications (Routine) - Authorized Specialty Diagnoses / Procedures Referred By Yany t Referred To Contact Diagnoses Malignant neoplasm of sigmoid colon (HCC) Encounter for antineoplastic chemotherapy Procedures [place] LEUCOVORIN CALCIUM INJECTION [place] PALONOSETRON HCL [place] FLUOROURACIL INJECTION [place] IRINOTECAN INJECTION [place] PANITUMUMAB INJECTION Yanet Berg MD 200 [place] [address] Anc Hem/Onc [address] [address] Referral ID Status Reason Start Date Expiration Date V isits Requested Visits Authorized [id number] Authorized 05/04/2024 10/16/2099 999 [id number] Encounter Details Date Type Department Care Team (Latest Contact Info) Description 05/18/2024 12:00 PM EDT Hem/Onc Treatment Hematology/Oncolog y Treatment, [address] [address] Verna, Chair 3 Hem Onc [address] [place] [address] Malignant neoplasm of sigmoid [...] Sprays into each nostril in the morning. [place] hand to apply. 16 g 3 11/25/2023 [...] Description 06/28/2024 10:30 AM EDT Laboratory Laboratory [facility] [place] [address] [place] [phone] Verna Lab [facility] [place] [address] [address] 06/29/2024 11:00 AM EDT Office Visit Hematology/Oncology [facility] [place] [address] [place] [phone] Yanet Berg MD [address] [place] [address] 06/29/2024 11:30 AM EDT Hem/Onc Treatment Hematology/Oncology Treatment, [place] [address] [place] [phone] Verna, Chair 11 Hem Onc [place] 200 [facility] [place] [address] 07/13/2024 11:00 AM EDT Office Visit Hematology/Oncology [facility] 200 [facility] [place] [address] Anahy Rowan CRNP 400 [facility] [place] [address] 07/28/2024 9:40 AM EDT Office Visit Family Practice [facility] 200 [facility] [place] [address] Buddy Patel III, MD 200 [facility] [place] [address] Health Maintenance Due Date Last Done Comments [...] this encounter Medical Devices Implanted Type Area Therapeutic Radiologist Device Identifier Shelf Expiration Date Model / Serial / Lot Port Implant W/8f Poly Cath - [id number] Implanted:Qty : 1 on 05/06/2023 by Leonardo Castro DO at OR [facility] Right: Chest CR BARD : PERIPHERAL VASCULAR [id number] 07/16/2024 [id number] / / [id number] documented as of this encounter Visit Diagnoses [...] For 1 dose, Restricted per [facility] antiemetic guidelines Given 05/18/2024 12:19 PM [...] mL documented in this encounter Care Teams Wire Coating Machine Operator Relationship Specialty Start Date End Date Amanda BROWN, Buddy Britton MD 200 [facility] [place] [address] PCP - General Family Medicine 04/29/23 documented as of this encounter
--- OUTSIDE RECORDS SUMMARY | 2024-10-25 01:12 | External Medical Summary | Summary of Care ---
Author Name Unknown Organization [facility] Address [address] [place] [address] Phone [phone] Care Team Providers Care Rn Occupational Health Name Role Phone Amanda BROWN MD, Buddy Britton Primary Care Provider [phone] Reason for Visit * Reason Comments Chemotherapy C1/D1 - VECTIBIX/FOL FIRI * Episode Based Medications (Routine) - Authorized Specialty Diagnoses / Procedures Referred By Yany t Referred To Contact Diagnoses Malignant neoplasm of sigmoid colon (HCC) Encounter for antineoplastic chemotherapy Procedures [place] LEUCOVORIN CALCIUM INJECTION [place] PALONOSETRON HCL MO FLUOROURACIL INJECTION MO IRINOTECAN INJECTION MO PANITUMUMAB INJECTION Yanet Berg MD 200 [place] [address] Anc Hem/Onc [address] [address] Referral ID Status Reason Start Date Expiration Date V isits Requested Visits Authorized [id number] Authorized 05/04/2024 10/16/2099 999 999 Encounter Details Date Type Department Care Team (Latest Contact Info) Description 05/18/2024 12:00 PM EDT Hem/Onc Treatment Hematology/Oncolog y Treatment, [address] [address] Verna, Chair 3 Hem On[address] [place] [address] Malignant neoplasm of sigmoid [...] Sprays into each nostril in the morning. [place] hand to apply. 16 g 3 11/25/2023 [...] Description 06/28/2024 10:30 AM EDT Laboratory Laboratory [facility] [place] [address] [place] [phone] Verna Lab [facility] 200 [facility] [place] [address] [address] 06/29/2024 11:00 AM EDT Office Visit Hematology/Oncology [facility] [place] [address] [place] [phone] Yanet Berg MD [address] [place] [address] 06/29/2024 11:30 AM EDT Hem/Onc Treatment Hematology/Oncology Treatment, [place] [address] [place] [phone] Verna, Chair 11 Hem Onc [place] 200 [facility] [place] [address] 07/13/2024 11:00 AM EDT Office Visit Hematology/Oncology [facility] 200 [facility] [place] [address] Anahy Rowan CRNP 400 [facility] [place] [address] 07/28/2024 9:40 AM EDT Office Visit Family Practice [facility] 200 [facility] [place] [address] Buddy Patel III, MD 200 [facility] [place] [address] Health Maintenance Due Date Last Done Comments [...] this encounter Medical Devices Implanted Type Area Pumper Gauger Device Identifier Shelf Expiration Date Model / Serial / Lot Port Implant W/8f Poly Cath - [id number] Implanted:Qty : 1 on 05/06/2023 by Leonardo Castro DO at OR [facility] Right: Chest CR BARD : PERIPHERAL VASCULAR [id number] 07/16/2024 [id number] / / [id number] documented as of this encounter Visit Diagnoses [...] at 1215, For 1 dose, Restricted per [facility] antiemetic guidelines Given 05/18/2024 12:19 [...] mL documented in this encounter Care Teams Rn Occupational Health Relationship Specialty Start Date End Date Amanda BROWN, Buddy Britton MD 200 [facility] [place] [address] PCP - General Family Medicine 04/29/23 documented as of this encounter
--- OUTSIDE RECORDS SUMMARY | 2024-10-25 01:13 | External Medical Summary | Summary of Care ---
Author Name Unknown Organization [facility] Address [address] [place] [address] Phone [phone] Care Team Providers Care Flap Presser Name Role Phone Amanda BROWN MD, Buddy Britton Primary Care Provider [phone] Reason for Visit * Reason Comments Chemotherapy Vectibix/FOLFIRI * Episode Based Medications (Routine) - Authorized Specialty Diagnoses / Procedures Referred By Yany severino Referred To Contact Diagnoses Malignant neoplasm of sigmoid colon (HCC) Encounter for antineoplastic chemotherapy Procedures [place] LEUCOVORIN CALCIUM INJECTION [place] PALONOSETRON HCL [place] FLUOROURACIL INJECTION LA IRINOTECAN INJECTION LA PANITUMUMAB INJECTION [facility]et [facility] 200 [facility] [address] Anc Hem/Onc [address] [address] Referral ID Status Reason Start Date Expiration Date V isits Requested Visits Authorized [id number] Authorized 05/04/2024 10/16/2099 999 999 Encounter Details Date Type Department Care Team (Latest Contact Info) Description 06/08/2024 9:00 AM EDT Hem/Onc Treatment Hematology/Oncolog y Treatment, [address] [address] Verna, Chair 6 [address] On[address] [place] [address] Malignant neoplasm of sigmoid colon (HCC)*; [...] Sprays into each nostril in the morning. [place] hand to apply. 16 g 3 11/25/2023 [...] for Pain, Severe. 120 Tablet 06/03/2024 Active documented as of this encounter (statuses [...] Sign Reading Time Taken Comments Blood Pressure 113/76 06/08/2024 9:21 AM EDT Pulse 86 06/08/2024 9:21 AM EDT Temperature 36.2 C (97.2 F) 06/08/2024 9:21 AM ED T Respiratory Rate 16 06/08/2024 9:21 AM EDT Oxygen Saturation 98% 06/08/2024 9:21 AM EDT Inhaled Oxygen Concentration - - Weight 86.7 kg (191 lb 3.2 oz) 06/08/2024 9:21 A M EDT Height - - Body Mass Index 29.07 02/23/2024 9:11 AM EDT documented in this encounter Nursing Notes * Ngoc Brooks, RN - 06/08/2024 3:58 PM EDT Pt completed treatment without issues. VAD flushed with positive blood return; 5FU IVP administered. CADD pump connected to VAD; 5FU infusion initiated. Goals: Pt will remain free from injury. Possible barriers to meeting goals: ambulation with IV pole Stability of the patient: Moderately stable - low risk of patient condition declining or worsening Summary regarding today's goals: Met: . Pt remained free from injury during treatment today. Discharged in stable condition. * Ngoc Brooks RN - 06/08/2024 9:23 AM EDT CHAIR 8 Chemotherapy/Immunotherapy agents: Vectibix/FOLFIRI Consent for chemotherapy drug treatment complete, dated, and signed? yes, date - 05/14/24 Treatment lab parameters met? Yes Has treatment weight changed > than 10%? No Treatment preauthorized? Yes VITALS Filed Vitals: 06/08/24 0921 BP: 113/76 Pulse: 86 Resp: 16 Temp: 36.2 C (97.2 F) SpO2: 98% Weight: 86.7 kg (191 lb 3.2 oz) Urine protein: N/A Patient education completed for treatment? Yes Blood transfusion consent signed and complete? NA Return appointment scheduled? Yes Patient had provider visit today? No - If no provider visit must complete Pretreatment Assessment PRE-TREATMENT ASSESSMENT: NEURO: numbness or tingling: stable and fatigue:stable CV/RESP: denies symptoms GI/: diarrhea: improving, pt reports he stopped taking daily Miralax, and stools are becoming more formed and decreased appetite: appetite is improving OTHER: rash:pt has mild resolving acneiform rash around nose; pt states there is no rash elsewhere PAIN: 0 VAD accessed; NSS infusing. Safety and Risk for Injury Patient will [...] Description 06/28/2024 10:30 AM EDT Laboratory Laboratory [facility] [place] 200 [facility] [place] [phone] Verna Lab [facility] 200 [facility] [place] [address] 06/29/2024 11:00 AM EDT Office Visit Hematology/Oncology [facility] [place] [address] [place] [phone] Yanet Berg MD 200 [facility] [place] [address] 06/29/2024 11:30 AM EDT Hem[facility] [address] [place] [phone] Verna, Chair 11 Hem Onc [address] [place] [address] 07/13/2024 11:00 AM EDT Office Visit Hematology/Oncology [facility] [place] [address] [place] [phone] Anahy Rowan CRNP [address] [place] [address] [place] [id number] 07/28/2024 9:40 AM EDT Office Visit Family Practice [facility] [place] [address] [place] [address] Buddy Patel III, MD 200 [place] [address] Health Maintenance Due Date Last Done Comments [...] this encounter Medical Devices Implanted Type Area Container Finisher Device Identifier Shelf Expiration Date Model / Serial / Lot Port Implant W/8f Poly Cath - [id number] Implanted:Qty : 1 on 05/06/2023 by Leonardo Castro DO at OR [facility] Right: Chest CR BARD : PERIPHERAL VASCULAR [id number] 07/16/2024 [id number] / / [id number] documented as of this encounter Visit Diagnoses Diagnosis Malignant neoplasm of sigmoid colon (HCC)- Primary Malignant neoplasm of sigmoid colon Encounter for antineoplastic chemotherapy documented in this encounter Administered Medications Inactive Administered Medications - up to 3 most recent administrations Medication Order MAR Action Action Date Dose Rate Site Atropine sulfate inj 0.4 mg 0.4 mg, IV Push, ONCE, On Thu06/08/24 at 0930, For 1 dose, Administer prior to irinotecan. Given 06/08/2024 11:17 AM EDT 0.4 mg dexAMETHasone (Decadron) tab 12 mg 12 mg, Oral, ONCE, On Thu06/08/24 at 0930, For 1 dose Given 06/08/2024 9:15 AM EDT 12 mg Fluorouracil (5-Fu) 4,975 mg for Home Infusion 4,975 mg (rounded from 4,968 mg = 2,400 mg/m2 2.07 m2 Treatment Plan BSA from Recorded weight), Intravenous, Administer over 46 Hours, Home Infusion Pharmacy to specify base solution and volume., ONCE, 1 dose, On Thu06/08/24 at 1145 Start Infusion 06/08/2024 1:02 PM EDT 4,975 mg 3 mL/hr Fluorouracil (5-Fu) inj 825 mg 825 mg (rounded from 828 mg = 400 mg/m2 2.07 m2 Treatment Plan BSA from Recorded weight), IV Push, ONCE, 1 dose, On Thu06/08/24 at 1130 Given 06/08/2024 12:58 PM EDT 825 mg irinotecan HCl (Camptosar) 380 mg in D5W 250 mL infusion 380 mg (rounded from 372.6 mg = 180 mg/m2 2.07 m2 Treatment Plan BSA from Recorded weight), IV Piggyback, ONCE, 1 dose, On Thu06/08/24 at 1000, Administer over 90 Minutes, PROTECT FROM LIGHT Start Infusion 06/08/2024 11:17 AM EDT 380 mg 182.67 mL/hr leucovorin calcium 850 mg in D5W 250 mL INFUSION 850 mg (rounded from 828 mg = 400 mg/m2 2.07 m2 Treatment Plan BSA from Recorded weight), IV Piggyback, ONCE, 1 dose, On Thu06/08/24 at 1000, Administer over 90 Minutes, Run over 90 minutes, prior to 5-FU Start Infusion 06/08/2024 11:14 AM EDT 850 mg 170 mL/hr NSS infusion Intravenous, at 50 mL/hr, PRN, Starting on Thu06/08/24 at 0830, Until Thu06/08/24 at 2005, Maintenance line Start Infusion 06/08/2024 9:15 AM EDT 50 mL/hr Palonosetron (Aloxi) inj SOLN 0.25 mg 0.25 mg, IV Push, ONCE, On Thu06/08/24 at 0930, For 1 dose, Restricted per [facility] antiemetic guidelines Given 06/08/2024 9:15 AM EDT 0.25 mg Panitumumab (Vectibix) 500 mg in NSS 100 mL infusion 500 mg (rounded from 537 mg = 6 mg/kg 89.5 kg Treatment plan Recorded weight), IV Piggyback, ONCE, 1 dose, On Thu06/08/24 at 0930, Administer over 60 Minutes, Must be infused through a 0.22 micron filter. Doses 1000 mg or less infuse over 60 minutes. If first infusion tolerated, subsequent doses may be administered over 30 to 60 minutes. Doses greater than 1000 mg infuse over 90 minutes. Start Infusion 06/08/2024 10:24 AM EDT 500 mg 200 mL/hr documented in this encounter Care Teams Flap Presser Relationship Specialty Start Date End Date Buddy Patel III, MD 200 [facility] [place] [place] [address] PCP - General Family Medicine 04/29/23 documented as of this encounter
--- OUTSIDE RECORDS SUMMARY | 2024-10-25 01:13 | External Medical Summary | Summary of Care ---
Author Name Unknown Organization [facility] Address [address] [place] [address] Phone [phone] Care Team Providers Care Area Counselor Name Role Phone Amanda BROWN MD, Buddy Britton Primary Care Provider [phone] Reason for Visit * Reason Comments Chemotherapy Vectibix/FOLFIRI * Episode Based Medications (Routine) - Authorized Specialty Diagnoses / Procedures Referred By Yany severino Referred To Contact Diagnoses Malignant neoplasm of sigmoid colon (HCC) Encounter for antineoplastic chemotherapy Procedures [place] LEUCOVORIN CALCIUM INJECTION [place] PALONOSETRON HCL [place] FLUOROURACIL INJECTION [place] IRINOTECAN INJECTION [place] PANITUMUMAB INJECTION [facility] [address] Anc Hem/Onc [address] [address] Referral ID Status Reason Start Date Expiration Date V isits Requested Visits Authorized [id number] Authorized 05/04/2024 10/16/2099 999 999 Encounter Details Date Type Department Care Team (Latest Contact Info) Description 06/08/2024 9:00 AM EDT Hem/Onc Treatment Hematology/Oncolog y Treatment, [address] [address] Verna, Chair 6 Hem On[address] [place] [address] Malignant neoplasm of sigmoid colon (HCC)*; [...] Sprays into each nostril in the morning. [place] hand to apply. 16 g 3 11/25/2023 [...] Description 06/28/2024 10:30 AM EDT Laboratory Laboratory [facility] [place] 200 [facility] [place] [phone] Verna Lab [facility] [address] [facility] [place] [address] 06/29/2024 11:00 AM EDT Office Visit Hematology/Oncology [facility] [place] [address] [place] [phone] Yanet Berg MD 200 [facility] [place] [address] 06/29/2024 11:30 AM EDT Hem[facility] [address] [place] [phone] Verna, Chair 11 Hem Onc [address] [place] [address] 07/13/2024 11:00 AM EDT Office Visit Hematology/Oncology [facility] [place] [address] [place] [phone] Anahy Rowan CRNP [address] [place] [address] [place] [phone] 07/28/2024 9:40 AM EDT Office Visit Family Practice [facility] [place] [address] [place] [address] Buddy Patel III, MD 200 [place] [address] Health Maintenance Due Date Last Done Comments [...] this encounter Medical Devices Implanted Type Area Hadoop Administrator Device Identifier Shelf Expiration Date Model / Serial / Lot Port Implant W/8f Poly Cath - [id number] Implanted:Qty : 1 on 05/06/2023 by Leonardo Castro DO at OR [facility] Right: Chest CR BARD : PERIPHERAL VASCULAR [id number] 07/16/2024 [id number] / / [id number] documented as of this encounter Visit Diagnoses [...] at 0930, For 1 dose, Restricted per [facility] antiemetic guidelines Given 06/08/2024 9:15 [...] mL/hr documented in this encounter Care Teams Area Counselor Relationship Specialty Start Date End Date Buddy Patel III, MD 200 [facility] [place] [address] PCP - General Family Medicine 04/29/23 documented as of this encounter
--- OUTSIDE RECORDS SUMMARY | 2024-10-25 01:13 | External Medical Summary | Summary of Care ---
Author Name Unknown Organization [facility] Address [address] [place] [address] Phone [phone] Care Team Providers Care Senior Service Aide Name Role Phone Amanda BROWN MD, Buddy Britton Primary Care Provider [phone] Reason for Visit * Reason Comments Chemotherapy Vectibix/FOLFIRI * Episode Based Medications (Routine) - Authorized Specialty Diagnoses / Procedures Referred By Yany severino Referred To Contact Diagnoses Malignant neoplasm of sigmoid colon (HCC) Encounter for antineoplastic chemotherapy Procedures [place] LEUCOVORIN CALCIUM INJECTION IA PALONOSETRON HCL IA FLUOROURACIL INJECTION IA IRINOTECAN INJECTION IA PANITUMUMAB INJECTION Yanet Berg [facility] [address] [facility]Onc [address] [address] Referral ID Status Reason Start Date Expiration Date V isits Requested Visits Authorized [id number] Authorized 05/04/2024 10/16/2099 999 [id number] Encounter Details Date Type Department Care Team (Latest Contact Info) Description 06/08/2024 9:00 AM EDT Hem/Onc Treatment Hematology/Oncolog y Treatment, [address] [address] Verna, Chair 6 Hem Onc [address] [place] [address] Malignant neoplasm of sigmoid colon (HCC)*; [...] Sprays into each nostril in the morning. [place] hand to apply. 16 g 3 11/25/2023 [...] AM EDT Laboratory Laboratory [facility] [place] [address] [facility] [place] [phone] Verna Lab [facility] [address] [facility] [place] [address] 06/29/2024 11:00 AM EDT Office Visit Hematology/Oncology [facility] [place] [address] [place] [phone] Yanet Berg MD [address] [facility] [place] [address] 06/29/2024 11:30 AM EDT Hem[facility] [address] [place] [phone] Verna, Chair 11 Hem Onc [address] [place] [address] 07/13/2024 11:00 AM EDT Office Visit Hematology/Oncology [facility] [place] [address] [place] [phone] Anahy Rowan CRNP [address] [place] [address] [place] [id number] 07/28/2024 9:40 AM EDT Office Visit Family Practice [facility] [place] [address] [place] [address] Buddy Patel III, MD 200 [place] [address] Health Maintenance Due Date Last Done Comments [...] this encounter Medical Devices Implanted Type Area Dry Pan Charger Device Identifier Shelf Expiration Date Model / Serial / Lot Port Implant W/8f Poly Cath - [id number] Implanted:Qty : 1 on 05/06/2023 by Leonardo Castro DO at OR [facility] Right: Chest CR BARD : PERIPHERAL VASCULAR [id number] 07/16/2024 [id number] / / [id number] documented as of this encounter Visit Diagnoses [...] at 0930, For 1 dose, Restricted per [facility] antiemetic guidelines Given 06/08/2024 9:15 [...] mL/hr documented in this encounter Care Teams Senior Service Aide Relationship Specialty Start Date End Date Buddy Patel III, MD [address] [facility] [place] [address] PCP - General Family Medicine 04/29/23 documented as of this encounter
--- OUTSIDE RECORDS SUMMARY | 2024-10-25 01:13 | External Medical Summary | Summary of Care ---
Author Name Unknown Organization [facility] Address [address] [place] [address] Phone [phone] Care Team Providers Care Photocomposing Keyboard Operator Name Role Phone Amanda BROWN MD, Buddy Britton Primary Care Provider [phone] Reason for Visit * Reason Comments Chemotherapy Vectibix/FOLFIRI * Episode Based Medications (Routine) - Authorized Specialty Diagnoses / Procedures Referred By Yany severino Referred To Contact Diagnoses Malignant neoplasm of sigmoid colon (HCC) Encounter for antineoplastic chemotherapy Procedures [place] LEUCOVORIN CALCIUM INJECTION [place] PALONOSETRON HCL SD FLUOROURACIL INJECTION SD IRINOTECAN INJECTION SD PANITUMUMAB INJECTION Yanet Berg MD 200 [facility] [address] Anc Hem/Onc [address] [address] Referral ID Status Reason Start Date Expiration Date V isits Requested Visits Authorized [id number] Authorized 05/04/2024 10/16/2099 999 [id number] Encounter Details Date Type Department Care Team (Latest Contact Info) Description 06/08/2024 9:00 AM EDT Hem/Onc Treatment Hematology/Oncolog y Treatment, [address] [address] Verna, Chair [address] [place] [place] [address] Malignant neoplasm of sigmoid colon (HCC)*; [...] Sprays into each nostril in the morning. [place] hand to apply. 16 g 3 11/25/2023 [...] Description 06/28/2024 10:30 AM EDT Laboratory Laboratory [facility] [place] 200 [facility] [place] [phone] Verna Lab [facility] [address] [facility] [place] [address] 06/29/2024 11:00 AM EDT Office Visit Hematology/Oncology [facility] [place] [address] [place] [phone] Yanet Berg MD 200 [facility] [place] [address] 06/29/2024 11:30 AM EDT Hem[facility] [address] [place] [phone] Verna, Chair 11 Hem Onc [address] [place] [address] 07/13/2024 11:00 AM EDT Office Visit Hematology/Oncology [facility] [place] [address] [place] [phone] Anahy Rowan CRNP [address] [place] [address] [place] [id number] 07/28/2024 9:40 AM EDT Office Visit Family Practice [facility] [place] [address] [place] [address] Buddy Patel III, MD 200 [place] [address] Health Maintenance Due Date Last Done Comments [...] this encounter Medical Devices Implanted Type Area Watch Guard Gate Device Identifier Shelf Expiration Date Model / Serial / Lot Port Implant W/8f Poly Cath - [id number] Implanted:Qty : 1 on 05/06/2023 by Leonardo Castro DO at OR [facility] Right: Chest CR BARD : PERIPHERAL VASCULAR [id number] 07/16/2024 [id number] / / [id number] documented as of this encounter Visit Diagnoses [...] at 0930, For 1 dose, Restricted per [facility] antiemetic guidelines Given 06/08/2024 9:15 [...] mL/hr documented in this encounter Care Teams Photocomposing Keyboard Operator Relationship Specialty Start Date End Date Buddy Patel III, MD 200 [place] [address] PCP - General Family Medicine 04/29/23 documented as of this encounter
--- OUTSIDE RECORDS SUMMARY | 2024-10-25 01:13 | External Medical Summary | Summary of Care ---
Author Name Unknown Organization [facility] Address [address] [place] [address] Phone [phone] Care Team Providers Care Hospitality Housekeeper Name Role Phone Amanda BROWN MD, Buddy Britton Primary Care Provider [phone] Reason for Visit * Reason Comments Chemotherapy Vectibix/FOLFIRI * Episode Based Medications (Routine) - Authorized Specialty Diagnoses / Procedures Referred By Yany severino Referred To Contact Diagnoses Malignant neoplasm of sigmoid colon (HCC) Encounter for antineoplastic chemotherapy Procedures [place] LEUCOVORIN CALCIUM INJECTION LA PALONOSETRON HCL LA FLUOROURACIL INJECTION LA IRINOTECAN INJECTION LA PANITUMUMAB INJECTION Yanet Berg MD 200 [facility] [address] Anc Hem/Onc [address] [address] Referral ID Status Reason Start Date Expiration Date V isits Requested Visits Authorized [id number] Authorized 05/04/2024 10/16/2099 999 999 Encounter Details Date Type Department Care Team (Latest Contact Info) Description 06/08/2024 9:00 AM EDT Hem/Onc Treatment Hematology/Oncolog y Treatment, [address] [address] Verna, Chair 6 Hem On[address] [place] [address] Malignant neoplasm of sigmoid colon (HCC)*; [...] Sprays into each nostril in the morning. [place] hand to apply. 16 g 3 11/25/2023 [...] Laboratory Laboratory [facility] [place] 200 [facility] [place] [phone] Verna Lab [facility] [address] [facility] [place] [address] 06/29/2024 11:00 AM EDT Office Visit Hematology/Oncology [facility] [place] [address] [place] [phone] Yanet Berg MD 200 [facility] [place] [address] 06/29/2024 11:30 AM EDT Hem[facility] [address] [place] [phone] Veran, Chair 11 Hem Onc [address] [place] [address] 07/13/2024 11:00 AM EDT Office Visit Hematology/Oncology [facility] [place] [address] [place] [phone] Anahy Rowan CRNP [address] [place] [address] [place] [id number] 07/28/2024 9:40 AM EDT Office Visit Family Practice [facility] [place] [address] [place] [address] Buddy Patel III, MD 200 [place] [address] Health Maintenance Due Date Last Done Comments [...] this encounter Medical Devices Implanted Type Area Digital Strategy Director Device Identifier Shelf Expiration Date Model / Serial / Lot Port Implant W/8f Poly Cath - [id number] Implanted:Qty : 1 on 05/06/2023 by Leonardo Castro DO at OR [facility] Right: Chest CR BARD : PERIPHERAL VASCULAR [id number] 07/16/2024 [id number] / / [id number] documented as of this encounter Visit Diagnoses [...] at 0930, For 1 dose, Restricted per [facility] antiemetic guidelines Given 06/08/2024 9:15 AM EDT [...] mL/hr documented in this encounter Care Teams Hospitality Housekeeper Relationship Specialty Start Date End Date Buddy Patel III, MD 200 [facility] [place] [address] PCP - General Family Medicine 04/29/23 documented as of this encounter
--- OUTSIDE RECORDS SUMMARY | 2024-10-25 01:13 | External Medical Summary | Summary of Care ---
Author Name Unknown Organization [facility] Address [address] [place] [address] Phone [phone] Care Team Providers Care Marketing Teacher Name Role Phone Amanda BROWN MD, Buddy Britton Primary Care Provider [phone] Reason for Visit * Reason Comments Chemotherapy Vectibix/FOLFIRI * Episode Based Medications (Routine) - Authorized Specialty Diagnoses / Procedures Referred By Yany severino Referred To Contact Diagnoses Malignant neoplasm of sigmoid colon (HCC) Encounter for antineoplastic chemotherapy Procedures [place] LEUCOVORIN CALCIUM INJECTION [place] PALONOSETRON HCL [place] FLUOROURACIL INJECTION [place] IRINOTECAN INJECTION [place] PANITUMUMAB INJECTION Yanet Berg MD 200 [facility] [address] Anc Hem/Onc [address] [address] Referral ID Status Reason Start Date Expiration Date V isits Requested Visits Authorized [id number] Authorized 05/04/2024 10/16/2099 999 999 Encounter Details Date Type Department Care Team (Latest Contact Info) Description 06/08/2024 9:00 AM EDT Hem/Onc Treatment Hematology/Oncolog y Treatment, [address] [address] Verna, Chair 6 Hem Onc [address] [place] [address] Malignant neoplasm of sigmoid colon (HCC)*; Encounter for antineoplastic chemotherapy Allergies No known active allergiesdocumented as of this encounter (statuses as of 06/23/2024) Medications Medication Sig Dispensed Refills Start Date [...] Sprays into each nostril in the morning. [place] hand to apply. 16 g 3 11/25/2023 [...] as of this encounter (statuses as of 06/23/2024) Active Problems Problem Noted Date Diagnosed Date Metastatic colon cancer to liver 11/25/2023 Protein-calorie malnutrition 08/07/2023 Malignant neoplasm of sigmoid colon 04/22/2023 Encounter for antineoplastic chemotherapy 2022 documented as of this encounter (statuses as of 06/23/2024) Immunizations Name Administration Dates Next Due Pneumococcal [...] Description 06/28/2024 10:30 AM EDT Laboratory Laboratory [facility] [place] 200 [facility] [place] [phone] Verna Lab [facility] [address] [facility] [place] [address] 06/29/2024 11:00 AM EDT Office Visit Hematology/Oncology [facility] [place] [address] [place] [phone] Yanet Berg MD 200 [facility] [place] [address] 06/29/2024 11:30 AM EDT Hem[facility] [address] [place] [phone] Verna, Chair 11 Hem Onc [address] [place] [address] 07/13/2024 11:00 AM EDT Office Visit Hematology/Oncology [facility] [place] [address] [place] [phone] Anahy Rowan CRNP [address] [place] [address] [place] [id number] 07/28/2024 9:40 AM EDT Office Visit Family Practice [facility] [place] [address] [place] [address] Buddy Patel III, MD 200 [place] [address] Health Maintenance Due Date Last Done Comments [...] this encounter Medical Devices Implanted Type Area Kiss Mixer Device Identifier Shelf Expiration Date Model / Serial / Lot Port Implant W/8f Poly Cath - [id number] Implanted:Qty : 1 on 05/06/2023 by Leonardo Castro DO at OR [facility] Right: Chest CR BARD : PERIPHERAL VASCULAR [id number] 07/16/2024 [id number] / / [id number] documented as of this encounter Visit Diagnoses [...] at 0930, For 1 dose, Restricted per [facility] antiemetic guidelines Given 06/08/2024 9:15 [...] mL/hr documented in this encounter Care Teams Marketing Teacher Relationship Specialty Start Date End Date Buddy Patel III, MD 200 [facility] [place] [address] PCP - General Family Medicine 04/29/23 documented as of this encounter
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
--- OUTSIDE RECORDS SUMMARY | 2024-10-25 01:14 | External Medical Summary | Summary of Care ---
Author Name Unknown Organization [facility] Address [address] [place] [address] Phone [phone] Care Team Providers Care Social Sciences Instructor Name Role Phone Amanda BROWN MD, Buddy Britton Primary Care Provider [phone] Reason for Visit * Reason Comments Chemotherapy Vectibix/FOLFIRI * Episode Based Medications (Routine) - Authorized Specialty Diagnoses / Procedures Referred By Yany severino Referred To Contact Diagnoses Malignant neoplasm of sigmoid colon (HCC) Encounter for antineoplastic chemotherapy Procedures [place] LEUCOVORIN CALCIUM INJECTION [place] PALONOSETRON HCL [place] FLUOROURACIL INJECTION [place] IRINOTECAN INJECTION [place] PANITUMUMAB INJECTION [facility] [address] Anc Hem/Onc [address] [address] Referral ID Status Reason Start Date Expiration Date V isits Requested Visits Authorized [id number] Authorized 05/04/2024 10/16/2099 999 [id number] Encounter Details Date Type Department Care Team (Latest Contact Info) Description 06/08/2024 9:00 AM EDT Hem/Onc Treatment Hematology/Oncolog y Treatment, [address] [address] Verna, Chair 6 Hem Onc [address] [place] [address] Malignant neoplasm of sigmoid [...] Sprays into each nostril in the morning. [place] hand to apply. 16 g 3 11/25/2023 [...] Laboratory [facility] [place] 200 [facility] [place] [phone] Verna Lab [facility] [address] [facility] [place] [address] 06/29/2024 11:00 AM EDT Office Visit Hematology/Oncology [facility] [place] [address] [place] [phone] Yanet Berg MD 200 [facility] [place] [address] 06/29/2024 11:30 AM EDT Hem[facility] [address] [place] [phone] Verna, Chair 11 Hem Onc [address] [place] [address] 07/13/2024 11:00 AM EDT Office Visit Hematology/Oncology [facility] [place] [address] [place] [phone] Anahy Rowan CRNP [address] [place] [address] [place] [phone] 07/28/2024 9:40 AM EDT Office Visit Family Practice [facility] [place] [address] [place] [address] Buddy Patel III, MD [address] [place] [address] Health Maintenance Due Date Last Done Comments [...] this encounter Medical Devices Implanted Type Area Delivery Truck Driver Device Identifier Shelf Expiration Date Model / Serial / Lot Port Implant W/8f Poly Cath - [id number] Implanted:Qty : 1 on 05/06/2023 by Leonardo Castro DO at OR [facility] Right: Chest CR BARD : PERIPHERAL VASCULAR [id number] 07/16/2024 [id number] / / [id number] documented as of this encounter Visit Diagnoses [...] at 0930, For 1 dose, Restricted per [facility] antiemetic guidelines Given 06/08/2024 9:15 AM EDT [...] mL/hr documented in this encounter Care Teams Social Sciences Instructor Relationship Specialty Start Date End Date Buddy Patel III, MD 200 [facility] [place] [address] PCP - General Family Medicine 04/29/23 documented as of this encounter
--- OUTSIDE RECORDS SUMMARY | 2024-10-25 01:14 | External Medical Summary | Summary of Care ---
Author Name Unknown Organization [facility] Address [address] [place] [address] Phone [phone] Care Team Providers Care Rn Orthopedic Name Role Phone Amanda BROWN MD, Buddy Britton Primary Care Provider [phone] Reason for Visit * Reason Comments Procedure Pump Disconnect/Port Flush * Episode Based Medications (Routine) - Authorized Specialty Diagnoses / Procedures Referred By Yany severino Referred To Contact Diagnoses Malignant neoplasm of sigmoid colon (HCC) Encounter for antineoplastic chemotherapy Procedures [place] LEUCOVORIN CALCIUM INJECTION [place] PALONOSETRON HCL [place] FLUOROURACIL INJECTION RI IRINOTECAN INJECTION RI PANITUMUMAB INJECTION Yanet Berg MD [address] [place] [address] [place] [address] Anc Hem/Onc [address] [address] Referral ID Status Reason Start Date Expiration Date V isits Requested Visits Authorized [id number] Authorized 05/04/2024 10/16/2099 999 [id number] Encounter Details Date Type Department Care Team (Latest Contact Info) Description 06/10/2024 11:00 AM EDT Immunization/ Injection Hematology/Oncology Treatment, [address] [phone] Verna, Chair 4 Hem Onc [address] [place] [address] Malignant neoplasm of sigmoid colon (HCC)*; [...] Sprays into each nostril in the morning. [place] hand to apply. 16 g 3 11/25/2023 [...] as of this encounter Nursing Notes * Jenn Gonzalez RN - 06/10/2024 4:14 PM EDT Patient to chair 8 ambulatory Patient denies any complaints or issues Safety and Risk for Injury Patient will [...] potential goodwin while using the heat function. Goals: patient will remain free of injury Possible barriers to meeting goals: Stability of the patient: Moderately stable - low risk of patient condition declining or worsening Summary regarding today's goals: Met: patient remained free of injury Presents for VAD flush. Tolerated procedure without difficulty. Flushes easily, positive blood return. Pump removed as ordered. Advised pt to call if redness, swelling, tenderness, or drainage occursat VAD site, verbalized understanding and has contact info. To return documented in this encounter Plan of Treatment Upcoming Encounters Date Type Department Care Team (Late st Contact Info) Description 06/28/2024 10:30 AM EDT Laboratory Laboratory [facility] [place] 200 [facility] [place] [phone] Verna Lab [address] [place] [address] 06/29/2024 11:00 AM EDT Office Visit Hematology/Oncology [facility] [address] [place] [phone] Yanet Berg MD 200 [facility] [place] [address] 06/29/2024 11:30 AM EDT Hem/Onc Treatment Hematology/Oncology Treatment, [place] [address] [facility] [address] [place], [place] [phone] Verna, Chair 11 Hem Onc [address] [place] [address] 07/13/2024 11:00 AM EDT Office Visit Hematology/Oncology [facility] [address] [place] [phone] Anahy Rowan CRNP [address] [place], [place] [address] [place] [phone] 07/28/2024 9:40 AM EDT Office Visit Family Practice [facility] [address] [place] [address] Buddy Patel III, MD [address] [place] [address] [place] [address] Health Maintenance Due Date Last Done Comments [...] encounter Medical Devices Implanted Type Area Back Roll Lathe Operator Device Identifier Shelf Expiration Date Model / Serial / Lot Port Implant W/8f Poly Cath - [id number] Implanted:Qty : 1 on 05/06/2023 by Leonardo Castro, at OR [facility] Right: Chest CR BARD : PERIPHERAL VASCULAR [id number] 07/16/2024 [id number] / / [id number] documented as of this encounter Visit Diagnoses [...] Lock, PRN Other, IV Flush, Starting on Thu06/10/24 at 1115, Until Thu06/10/24 at 2017, For 24 hours, Do not flush if lock, PICC, or central line not in place; IV infusing or unable to flush. Given 06/10/2024 11:27 AM EDT 500 Units sodium chloride 0.9 % flush central line 10 mL 10 mL, IV Push, PRN Other, IV Flush, Starting on Thu06/10/24 at 1115, Until Thu06/10/24 at 2017, For 24 hours, Do not flush if lock, PICC, or central line not in place; IV infusing or unable to flush. Given 06/10/2024 11:20 AM EDT 10 mL documented in this encounter Care Teams Rn Orthopedic Relationship Specialty Start Date End Date Buddy Patel III, MD 200 [facility] [place] [address] PCP - General Family Medicine 04/29/23 documented as of this encounter
--- OUTSIDE RECORDS SUMMARY | 2024-10-25 01:14 | External Medical Summary | Summary of Care ---
Author Name Unknown Organization [facility] Address [address] [place] [address] Phone [phone] Care Team Providers Care Information Systems Director Name Role Phone Amanda BROWN MD, Buddy Britton Primary Care Provider [phone] Reason for Visit * Reason Comments Chemotherapy Vectibix/FOLFIRI * Episode Based Medications (Routine) - Authorized Specialty Diagnoses / Procedures Referred By Yany severino Referred To Contact Diagnoses Malignant neoplasm of sigmoid colon (HCC) Encounter for antineoplastic chemotherapy Procedures [place] LEUCOVORIN CALCIUM INJECTION [place] PALONOSETRON HCL [place] FLUOROURACIL INJECTION [place] IRINOTECAN INJECTION [place] PANITUMUMAB INJECTION Yanet Berg MD [address] [facility] [address] Anc Hem/Onc [address] [address] Referral ID Status Reason Start Date Expiration Date V isits Requested Visits Authorized [id number] Authorized 05/04/2024 10/16/2099 999 [id number] Encounter Details Date Type Department Care Team (Latest Contact Info) Description 06/08/2024 9:00 AM EDT Hem/Onc Treatment Hematology/Oncolog y Treatment, [address] [phone] Verna, Chair 6 Hem Onc [address] [place] [address] Malignant neoplasm of sigmoid colon (HCC)*; [...] Sprays into each nostril in the morning. [place] hand to apply. 16 g 3 11/25/2023 [...] 06/28/2024 10:30 AM EDT Laboratory Laboratory [facility] [place] 200 [facility] [place] [phone] Verna Lab [facility] [address] [facility] [place] [address] 06/29/2024 11:00 AM EDT Office Visit Hematology/Oncology [facility] [place] [address] [place] [phone] Yanet Berg MD 200 [facility] [place] [address] 06/29/2024 11:30 AM EDT Hem[facility] [address] [place] [phone] Verna, Chair 11 Hem Onc [address] [place] [address] 07/13/2024 11:00 AM EDT Office Visit Hematology/Oncology [facility] [place] [address] [place] [phone] Anahy Rowan CRNP [address] [place] [address] [place] [id number] 07/28/2024 9:40 AM EDT Office Visit Family Practice [facility] [place] [address] [place] [address] Buddy Patel III, MD [address] [place] [address] Health Maintenance Due Date Last Done Comments [...] this encounter Medical Devices Implanted Type Area Electric Motor Fitter Device Identifier Shelf Expiration Date Model / Serial / Lot Port Implant W/8f Poly Cath - [id number] Implanted:Qty : 1 on 05/06/2023 by Leonardo Castro DO at OR [facility] Right: Chest CR BARD : PERIPHERAL VASCULAR [id number] 07/16/2024 [id number] / / [id number] documented as of this encounter Visit Diagnoses [...] 0930, For 1 dose, Restricted per [facility] antiemetic guidelines Given 06/08/2024 9:15 [...] mL/hr documented in this encounter Care Teams Information Systems Director Relationship Specialty Start Date End Date Buddy Patel III, MD 200 [facility] [place] [address] PCP - General Family Medicine 04/29/23 documented as of this encounter
--- OUTSIDE RECORDS SUMMARY | 2024-10-25 01:14 | External Medical Summary | Summary of Care ---
Author Name Unknown Organization [facility] Address [address] [place] [address] Phone [phone] Care Team Providers Care Integrity Engineer Name Role Phone Amanda BROWN MD, Buddy Britton Primary Care Provider [phone] Reason for Visit * Reason Comments Chemotherapy Vectibix/FOLFIRI * Episode Based Medications (Routine) - Authorized Specialty Diagnoses / Procedures Referred By Yany severino Referred To Contact Diagnoses Malignant neoplasm of sigmoid colon (HCC) Encounter for antineoplastic chemotherapy Procedures UT LEUCOVORIN CALCIUM INJECTION UT PALONOSETRON HCL UT FLUOROURACIL INJECTION UT IRINOTECAN INJECTION UT PANITUMUMAB INJECTION Yanet Berg [facility] [address] Anc Hem/Onc [address] [address] Referral ID Status Reason Start Date Expiration Date V isits Requested Visits Authorized [id number] Authorized 05/04/2024 10/16/[phone] Encounter Details Date Type Department Care Team (Latest Contact Info) Description 06/08/2024 9:00 AM EDT Hem/Onc Treatment Hematology/Oncolog y Treatment, [address] [address] Verna, Chair 6 Hem Onc [address] [place] [address] Malignant neoplasm of sigmoid [...] Sprays into each nostril in the morning. [place] hand to apply. 16 g 3 11/25/2023 [...] Description 06/28/2024 10:30 AM EDT Laboratory Laboratory [facility] [place] 200 [facility] [place] [phone] Verna Lab [facility] [address] [facility] [place] [address] 06/29/2024 11:00 AM EDT Office Visit Hematology/Oncology [facility] [place] [address] [place] [phone] Yanet Berg MD 200 [facility] [place] [address] 06/29/2024 11:30 AM EDT [facility] [address] [place] [phone] Verna, Chair 11 Hem Onc [address] [place] [address] 07/13/2024 11:00 AM EDT Office Visit Hematology/Oncology [facility] [place] [address] [place] [phone] Anahy Rowan CRNP [address] [place] [address] [place] [phone] 07/28/2024 9:40 AM EDT Office Visit Family Practice [facility] [place] [address] [place] [address] Buddy Patel III, MD 200 [place] [address] Health Maintenance Due Date Last Done Comments [...] this encounter Medical Devices Implanted Type Area Shipping Packer Device Identifier Shelf Expiration Date Model / Serial / Lot Port Implant W/8f Poly Cath - [id number] Implanted:Qty : 1 on 05/06/2023 by Leonardo Castro DO at OR [facility] Right: Chest CR BARD : PERIPHERAL VASCULAR [id number] 07/16/2024 [id number] / / [id number] documented as of this encounter Visit Diagnoses [...] at 0930, For 1 dose, Restricted per [facility] antiemetic guidelines Given 06/08/2024 9:15 [...] mL/hr documented in this encounter Care Teams Integrity Engineer Relationship Specialty Start Date End Date Buddy aPtel III, MD 200 [facility] [place] [address] PCP - General Family Medicine 04/29/23 documented as of this encounter
--- OUTSIDE RECORDS SUMMARY | 2024-10-25 01:14 | External Medical Summary | Summary of Care ---
Author Name Unknown Organization [facility] Address [address] [place] [address] Phone [phone] Care Team Providers Care Buttonhole Marker Name Role Phone Amanda BROWN MD, Buddy Britton Primary Care Provider [phone] Reason for Visit * Reason Onset Date Comments Information 06/22/2024 Encounter Details Date Type Department Care Team (Late st Contact Info) Description 06/22/2024 Telephone Hematology/Oncology Treatment, [place] [address] [place] [address] Yanet Berg MD 200 [place] [address] Information Allergies No known active allergiesdocumented as of [...] Sprays into each nostril in the morning. [place] hand to apply. 16 g 3 11/25/2023 [...] Telephone Encounter - Candace Bustillos OSA - 06/22/2024 10:58 AM EDT Apt added * Telephone Encounter - Brenda Cantrell RN - 06/22/2024 9:48 AM EDT Received call from Miri. Patient saw Dr Parra with [facility] urology yesterday, Dr Parra told him that he has urine coming out of his rectum and that he is concerned by this. Dr Parra is retiring, so is referring him to another urologist. Called Dr Parra's office and spoke to Femi. He will fax office note over to us. Reviewed with Dr Berg- can megan patient to see him next week. Called Miri. She thinks it may help for us to talk to Mendez. She is going to call him to let him know we are calling to make sure that he answers the phone. Patient did not answer phone. Called Miri, she connected patient through [address] calling. Reviewed above, offered appt for next week, patient accepted. Scheduling: please add appt for patient to see Dr Berg 06/[address] Berg, ok to overbook.Patient aware of appt. Thanks! documented in this encounter Plan of Treatment Upcoming Encounters Date Type Department Care Team (Late st Contact Info) Description 06/28/2024 10:30 AM EDT Laboratory Laboratory [facility] [place] [address] [place] [phone] Verna, Lab [facility] 200 [facility] [place] [address] 06/29/2024 11:00 AM EDT Office Visit Hematology/Oncology [facility] [place] [address] [place] [phone] Yanet Berg MD 200 [facility] [place] [address] 06/29/2024 11:30 AM EDT Hem/Onc Treatment Hematology/Oncology Treatment, [place] [address] [facility] [address] [place], [place] [phone] Verna, Chair 11 Hem On[address] [place] [address] 07/13/2024 11:00 AM EDT Office Visit Hematology/Oncology [facility] Verna [place] 200 [facility] [place] [phone] Anahy Rowan, DEJA [address] [place] [address] 07/28/2024 9:40 AM EDT Office Visit Family Practice [facility] Verna [place] [address] [place], [place] [address] Buddy Patel III, MD 200 [facility] [place] [address] Health Maintenance Due Date Last Done Comments [...] this encounter Medical Devices Implanted Type Area Bank Clerk Device Identifier Shelf Expiration Date Model / Serial / Lot Port Implant W/8f Poly Cath - [id number] Implanted:Qty : 1 on 05/06/2023 by Leonardo Castro DO at OR [facility] Right: Chest CR BARD : PERIPHERAL VASCULAR [id number] 07/16/2024 [id number] / / [id number] documented as of this encounter Care Teams Buttonhole Marker Relationship Specialty Start Date End Date Buddy Patel III, MD [address] [place] [address] PCP - General Family Medicine 04/29/23 documented as of this encounter
--- OUTSIDE RECORDS SUMMARY | 2024-10-25 01:15 | External Medical Summary | Summary of Care ---
Author Name Unknown Organization [facility] Address [address] [place] [address] Phone [phone] Care Team Providers Care Lead Generation Specialist Name Role Phone Amanda BROWN MD, Buddy Britton Primary Care Provider [phone] Reason for Visit * Reason Comments Outpatient Testing Encounter Details Date Type Department Care Team (Late st Contact Info) Description 06/21/2024 10:45 AM EDT Laboratory Laboratory [facility] [address] [place] [address] [facility] [address] [place], [place] [phone] Metastatic colon cancer to liver (HCC) Allergies No known active allergiesdocumented as of this encounter (statuses as of 06/21/2024) Medications Medication Sig Dispensed Refills Start Date [...] Sprays into each nostril in the morning. [place] hand to apply. 16 g 3 11/25/2023 [...] as of this encounter (statuses as of 06/21/2024) Active Problems Problem Noted Date Diagnosed Date Metastatic colon cancer to liver 11/25/2023 Protein-calorie malnutrition 08/07/2023 Malignant neoplasm of sigmoid colon 04/22/2023 Encounter for antineoplastic chemotherapy 2022 documented as of this encounter (statuses as of 06/21/2024) Immunizations Name Administration Dates Next Due Pneumococcal [...] 06/21/2024 11:00 AM EDT Office Visit Hematology/Oncology [address] [place] [phone] Breann Moore CRNP [address] [place] [address] [place] [address] Arrived 06/22/2024 10:45 AM EDT Hem/Onc Treatment Hematology/Oncology Treatment, [address] [place] [phone] Verna, Chair 7 Hem Onc [address] [place] [address] 07/28/2024 9:40 AM EDT Office Visit Family Practice [facility] [address] [place] [address] Buddy Patel III, MD [address] [place] [address] [facility] [place] [address] Pending Results Name Type Priority Associated Diagnoses Date /Time CBC WITH WBC DIFFERENTIAL Lab STAT Metastatic colon cancer to liver (HCC) 06/21/2024 10:04 AM EDT COMPREHENSIVE METABOLIC PANEL Lab STAT Metastatic colon cancer to liver (HCC) 06/21/2024 10:04 AM EDT MAGNESIUM Lab STAT Metastatic colon cancer to liver (HCC) 06/21/2024 10:04 AM EDT CBC Lab STAT Metastatic colon cancer to liver (HCC) 06/21/2024 10:04 AM EDT DIFFERENTIAL, AUTOMATED Lab STAT Metastatic colon cancer to liver (HCC) 06/21/2024 10:04 AM EDT Health Maintenance Due Date Last Done Comments COVID-19 Vaccine (#1) 1968 HIV Screening 1978 Hepatitis C Screening 1981 DTaP,Tdap,and Td Vaccines (1 - Tdap) 1982 Zoster Vaccines (1 of 2) 1982 Cologuard 2008 Fecal Occult Blood Test 2008 Sigmoidoscopy 2008 Influenza Vaccine (FLU shot) (#1) 2024 Depression Screening 08/07/2024 08/07/2023 Diabetes Screening 06/07/2027 06/07/2024, 0 05/31/2024, 05/17/2024, Additional history exists Lipid Panel 12/01/2028 12/01/2023, [...] this encounter Medical Devices Implanted Type Area Temple Meat Cutter Device Identifier Shelf Expiration Date Model / Serial / Lot Port Implant W/8f Poly Cath - [id number] Implanted:Qty : 1 on 05/06/2023 by Leonardo Castro, at OR [facility] Right: Chest CR BARD : PERIPHERAL VASCULAR [id number] 07/16/2024 [id number] / / [id number] documented as of this encounter Visit Diagnoses Diagnosis Metastatic colon cancer to liver (HCC) Malignant neoplasm of colon, unspecified site documented in this encounter Care Teams Lead Generation Specialist Relationship Specialty Start Date End Date Buddy Patel III, MD [address] [place] [address] PCP - General Family Medicine 04/29/23 documented as of this encounter
--- OUTSIDE RECORDS SUMMARY | 2024-10-25 01:15 | External Medical Summary ---
Author Name Unknown Address Unknown Organization K09[facility] [place] [address] Laboratory Report Ordering Provider Test Date Status TEJAS TORRES 06/21/2024 10:04:16 Final Observation Date Value Abnormality Reference (Units ) Status WBC, Total 06/21/2024 10:04:16 3.67 Below low normal 4. 00-10.80 (K/uL) Final RBC 06/21/2024 10:04:16 4.19 4.50-5.25 (M/uL) Final Hemoglobin 06/21/2024 10:04:16 10.5 Below low normal 14 .0-16.8 (g/dL) Final HCT 06/21/2024 10:04:16 32.7 Below low normal 40. 0-48.4 (%) Final MCV 06/21/2024 10:04:16 78.0 82.0-99.5 (fL) Final MCH 06/21/2024 10:04:16 25.1 27.0-34.0 (pg) Final MCHC 06/21/2024 10:04:16 32.1 32.0-36.0 (g/dL) Final RDW 06/21/2024 10:04:16 19.1 11.5-15.5 (%) Final Platelets 06/21/2024 10:04:16 212 140-400 (K /uL) Final MPV 06/21/2024 10:04:16 12.2 6.6-11.1 ( fL) Final Performing Location [facility] [place] [address]
--- OUTSIDE RECORDS SUMMARY | 2024-10-25 01:15 | External Medical Summary ---
Author Name Unknown Address Unknown Organization [facility] [address] [place] [address] Laboratory Report Ordering Provider Test Date Status TEJAS TORRES 06/21/2024 10:04:16 Final Observation Date Value Abnormality Reference (Units ) Status SYNC LEUKOCYTES IN BLOOD BY AUTOMATED COUNT 06/21/2024 10:04:16 3.67 Below low normal 4.00-10.80 (K/uL) Final Neutrophils/100 leukocytes in Blood by Manual count 06/21/2024 10:04:16 28.0 Below low normal 40.0-75.0 (%) Final Lymphocytes/100 leukocytes in Blood by Manual count 06/21/2024 10:04:16 45.0 Above high normal 18.0-42.0 (%) Final Monocytes/100 leukocytes in Blood by Manual count 06/21/2024 10:04:16 16.0 Above high normal 1.0-11.0 (%) Final Eosinophils/100 leukocytes in Blood by Manual count 06/21/2024 10:04:16 11.0 Above high normal 0.0-6.0 (%) Final Neutrophils [#/volume] in Blood by Manual count 06/21/2024 10:04:16 1.03 Below low normal 1.80-7.70 (K/uL) Final Lymphocytes [#/volume] in Blood by Manual count 06/21/2024 10:04:16 1.65 1.00-4.80 (K/uL) Final Monocytes [#/volume] in Blood by Manual count 06/21/2024 10:04:16 0.59 0.00-1.10 (K/uL) Final Eosinophils [#/volume] in Blood by Manual count 06/21/2024 10:04:16 0.40 0.00-0.70 (K/uL) Final Nucleated erythrocytes/100 leukocytes [Ratio] in Blood by Automated count 06/21/2024 10:04:16 Final Schistocytes 06/21/2024 10:04:16 Few Abnormal None Seen Final Variant lymphocytes [Presence] in Blood by Light microscopy 06/21/2024 10:04:16 Present Abnormal None Seen Final Performing Location [facility] [address] [place] [address]
--- OUTSIDE RECORDS SUMMARY | 2024-10-25 01:15 | External Medical Summary | Summary of Care ---
Author Name Unknown Organization [facility] Address [address] [place] [address] Phone [phone] Care Team Providers Care Plant Technical Specialist Name Role Phone Amanda BROWN MD, Buddy Britton Primary Care Provider [phone] Encounter Details Date Type Department Care Team (Late st Contact Info) Description 06/21/2024 Orders Only Hematology/Oncology [facility] Verna [place] 200 [facility] [place] [place] [address] Breann Moore CRNP [address] [place] [address] Allergies No known active allergiesdocumented as of [...] into each nostril in the morning. [place] hand to apply. 16 g 3 11/25/2023 [...] Team (Late st Contact Info) Description 06/22/2024 10:45 AM EDT Hem/Onc Treatment [facility]ology[facility]cology [facility], [place] [facility] [phone] Verna, Chair 7 Hem On[address] [place] [address] 07/28/2024 9:40 AM EDT Office Visit Family Practice [facility] [address] [place] [address] Buddy Patel III, MD 200 [facility] [place] [address] Health Maintenance Due Date Last Done Comments [...] encounter Medical Devices Implanted Type Area Hoop Expander Device Identifier Shelf Expiration Date Model / Serial / Lot Port Implant W/8f Poly Cath - [id number] Implanted:Qty : 1 on 05/06/2023 by Leonardo Castro DO at OR [facility] Right: Chest CR BARD : PERIPHERAL VASCULAR [id number] 07/16/2024 [id number] / / [id number] documented as of this encounter Care Teams Plant Technical Specialist Relationship Specialty Start Date End Date Buddy Patel III, MD 200 [facility] [place] [address] PCP - General Family Medicine 04/29/23 documented as of this encounter
--- OUTSIDE RECORDS SUMMARY | 2024-10-25 01:15 | External Medical Summary | Summary of Care ---
Author Name Unknown Organization [facility] Address [address] [place] [address] Phone [phone] Care Team Providers Care Operational Risk Analyst Name Role Phone Amanda BROWN MD, Buddy Britton Primary Care Provider [phone] Reason for Visit * Reason Comments IV Therapy Hydration/potassium. Encounter Details Date Type Department Care Team (Latest Contact Info) Description 06/21/2024 11:30 AM EDT Hem/Onc Treatment Hematology/Oncolog y Treatment, [place] 200 [place] [address] Verna, Chair 4 Hem Onc [address] [place] [address] Malignant neoplasm of sigmoid colon (HCC)*; Metastatic [...] Sprays into each nostril in the morning. [place] hand to apply. 16 g 3 11/25/2023 [...] Laboratory [facility] [address] [place] [address] Verna Lab [facility] 200 [facility] [place] [address] 06/29/2024 11:30 AM EDT Hem/Onc Treatment Hematology/Oncology Treatment, [place] [address] [facility] [place] [phone] Verna, Chair 11 Hem Onc [facility] 200 [place] [address] 07/13/2024 11:00 AM EDT Office Visit Hematology/Oncology [facility] [place] 200 [place] [address] Anahy Rowan CRNP [address] [place] [address] 07/28/2024 9:40 AM EDT Office Visit Family Practice [facility] [place] 200 [facility] [place] [address] Buddy Patel III, MD 200 [facility] [place] [address] Health Maintenance Due Date Last Done Comments [...] this encounter Medical Devices Implanted Type Area Compounding Assistant Device Identifier Shelf Expiration Date Model / Serial / Lot Port Implant W/8f Poly Cath - [id number] Implanted:Qty : 1 on 05/06/2023 by Leonardo Castro, DO at OR [facility] Right: Chest CR BARD : PERIPHERAL VASCULAR [id number] 07/16/2024 [id number] / / [id number] documented as of this encounter Visit Diagnoses [...] Flush, Starting on Thu06/21/24 at 1208, Until Thu06/22/24 at 1207, For 24 hours, Do not flush if lock, PICC, or central line not in place; IV infusing or unable to flush. Given 06/21/2024 2:17 PM EDT 500 Units sodium chloride 0.9 % flush central line 10 mL 10 mL, IV Push, PRN Other, IV Flush, Starting on Thu06/21/24 at 1208, Until Thu06/22/24 at 1207, For 24 hours, Do not flush if lock, PICC, or central line not in place; IV infusing or unable to flush. Given 06/21/2024 2:17 PM EDT 10 mL Inactive Administered Medications - up to 3 most recent administrations Medication Order MAR Action Action Date Dose Rate Site NSS infusion FOR HYDRATION Intravenous, at 500 [...] PM EDT 10 mEq 100 mL/h r documented in this encounter Care Teams Operational Risk Analyst Relationship Specialty Start Date End Date Buddy Patel III, MD 200 [facility] [place] [address] PCP - General Family Medicine 04/29/23 documented as of this encounter
--- OUTSIDE RECORDS SUMMARY | 2024-10-25 01:15 | External Medical Summary | Summary of Care ---
Author Name Unknown Organization [facility] Address [address] [place] [address] Phone [phone] Care Team Providers Care Inspector Fabric Name Role Phone Amanda BROWN MD, Buddy Britton Primary Care Provider [phone] Reason for Visit * Reason Onset Date Comments Information 06/22/2024 Encounter Details Date Type Department Care Team (Late st Contact Info) Description 06/22/2024 Telephone Hematology/Oncology Treatment, [place] [address] [place] [address] Yanet Berg MD 200 [place] [address] Information Allergies No known active allergiesdocumented as [...] Sprays into each nostril in the morning. [place] hand to apply. 16 g 3 11/25/2023 [...] from Miri. Patient [place] Parra with [facility] [place] yesterday, Dr Parra told him that he has urine coming out of his rectum and that he is concerned by this. Dr Parra is retiring, so is referring him to another urologist. Called Dr Parra's office and spoke to Femi. He will fax office note over to us. Reviewed with Dr Berg- siri overoswaldo patient to see him next week. Called [...] [place] [address] [place] [phone] Alesha Gillespie [address] [facility] [place] [address] 06/29/2024 11:30 AM EDT Hem/Onc Treatment Hematology/Oncology [facility], [place] [address] [facility] [address] [place], [place] [phone] Verna, Chair 11 Hem Onc [address] [place] [address] 07/13/2024 11:00 AM EDT Office Visit Hematology/Oncology [facility] [address] [place] [phone] Anahy Rowan CRNP [address] [place] [address] 07/28/2024 9:40 AM EDT Office Visit Family Practice [facility] [address] [facility] [place] [address] Buddy Patel III, MD [address] [facility] [address] [place] [address] Health Maintenance Due Date Last Done Comments [...] this encounter Medical Devices Implanted Type Area Defensive Line Coach Device Identifier Shelf Expiration Date Model / Serial / Lot Port Implant W/8f Poly Cath - [id number] Implanted:Qty : 1 on 05/06/2023 by Leonardo Castro, at OR [facility] Right: Chest CR BARD : PERIPHERAL VASCULAR [id number] 07/16/2024 [id number] / / [id number] documented as of this encounter Care Teams Inspector Fabric Relationship Specialty Start Date End Date Buddy Patel III, MD 200 [facility] [place] [address] PCP - General Family Medicine 04/29/23 documented as of this encounter
--- OUTSIDE RECORDS SUMMARY | 2024-10-25 01:15 | External Medical Summary ---
Author Name Unknown Address Unknown Organization [facility] [address] [place] [address] Laboratory Report Ordering Provider Test Date Status MITCHELL SOUZA 06/21/2024 10:04:16 Final Observation Date Value Abnormality Reference (Units ) Status CEA 06/21/2024 10:04:16 4.4 <=5.2 (ng/ mL) Final Performing Location [facility] [address] [place] [address]
--- OUTSIDE RECORDS SUMMARY | 2024-10-25 01:15 | External Medical Summary | Summary of Care ---
Author Name Unknown Organization [facility] Address [address] [place] [address] Phone [phone] Care Team Providers Care Warehouse Operator Name Role Phone Amanda BROWN MD, Buddy Britton Primary Care Provider [phone] Encounter Details Date Type Department Care Team (Late st Contact Info) Description 06/21/2024 Orders Only Hematology/Oncology [facility] Verna [place] 200 [facility] [place] [address] Yanet Berg MD [address] [place] [address] Allergies No known active allergiesdocumented as of [...] into each nostril in the morning. [place] hand to apply. 16 g 3 11/25/2023 [...] 10:45 AM EDT Hem/Onc Treatment [facility]ology[facility], [place] [facility] [phone] Verna, Chair 7 Hem Onc [address] [place] [address] 07/28/2024 9:40 AM EDT Office Visit Family Practice [facility] [address] [place] [address] [place] III, Buddy Britton MD 200 [facility] [place] [address] Health Maintenance Due Date Last Done Comments [...] this encounter Medical Devices Implanted Type Area Card Setter Device Identifier Shelf Expiration Date Model / Serial / Lot Port Implant W/8f Poly Cath - [id number] Implanted:Qty : 1 on 05/06/2023 by Leonardo Castro DO at OR [facility] Right: Chest CR BARD : PERIPHERAL VASCULAR [id number] 07/16/2024 [id number] / / [id number] documented as of this encounter Care Teams Warehouse Operator Relationship Specialty Start Date End Date Buddy Patel III, MD [address] [place] [address] PCP - General Family Medicine 04/29/23 documented as of this encounter
--- OUTSIDE RECORDS SUMMARY | 2024-10-25 01:15 | External Medical Summary ---
Author Name Unknown Address Unknown Organization K[facility] [address] [place] [address] Laboratory Report Ordering Provider Test Date Status TEJAS TORRES 06/21/2024 10:04:16 Final Observation Date Value Abnormality Reference (Units ) Status BUN 06/21/2024 10:04:16 6 6-20 (mg/dL) Final Creatinine 06/21/2024 10:04:16 0.7 0.6-1.2 (mg/dL) Final Glomerular filtration rate/1.73 sq M.predicted [Volume Rate/Area] in Serum, Plasma or Blood by Creatinine-based formula (CKD-EPI) 06/21/2024 10:04:16 >90 >=60 (mL/min) Final eGFR is calculated based on the CKD-EPI 2020 equation. Sodium 06/21/2024 10:04:16 136 135-146 (m mol/L) Final Potassium 06/21/2024 10:04:16 3.3 Below low normal 3.5 -5.1 (mmol/L) Final Cl 06/21/2024 10:04:16 102 98-107 (mm ol/L) Final CO2 06/21/2024 10:04:16 24 22-32 (mmo l/L) Final Anion gap 06/21/2024 10:04:16 10 7-15 (mmol /L) Final Glucose 06/21/2024 10:04:16 105 70-120 (mg /dL) Final Albumin 06/21/2024 10:04:16 3.0 Below low normal 3.8 -5.0 (g/dL) Final AST (Aspartate aminotransferase) 06/21/2024 10:04:16 26 10-50 (U/L) Fin al Alk Phos 06/21/2024 10:04:16 214 Above high normal 35 -130 (U/L) Final Bilirubin, Total 06/21/2024 10:04:16 1.2 <=1 .2 (mg/dL) Final Calcium 06/21/2024 10:04:16 8.7 8.4-10.2 ( mg/dL) Final Protein 06/21/2024 10:04:16 7.2 6.0-8.3 (g /dL) Final ALT (Alanine aminotransferase) 06/21/2024 10:04:16 17 10-50 (U/L) Jake chavez Performing Location [facility] [place] [address]
--- OUTSIDE RECORDS SUMMARY | 2024-10-25 01:15 | External Medical Summary ---
Author Name Unknown Address Unknown Organization K09[facility] [place] [address] Laboratory Report Ordering Provider Test Date Status TEJAS TORRES 06/21/2024 10:04:16 Final Observation Date Value Abnormality Reference (Units ) Status Magnesium 06/21/2024 10:04:16 1.9 1.5-2.6 (m g/dL) Final Performing Location [facility] [place] [address]
[2024-10-25 07:50] LABS: ANTI-Xa, UFH(UnfractionatedHep 0.16 IU/ml (0.3-0.7)
[2024-10-25 07:52] LABS: Albumin Globulin Ratio 0.6 (0.9-2); Albumin Level 2.6 gm/dl (3.4-5.0); BUN Creatinine Ratio 20.7 (10-20); Bilirubin,Total 0.6 mg/dl (0.2-1.0); Calcium 8.4 mg/dl (8.6-10.3); Creatinine Clr Calc Pharmacy 129.4 ml/min; Globulin 4.4 gm/dl (2.5-4.0); Magnesium 1.8 mg/dl (1.7-2.4); Phosphorus 4.1 mg/dl (2.5-4.9); Potassium 3.7 mmol/L (3.5-5.1)
[2024-10-25 07:55] LABS: Hematocrit (blood only) 23.2 % (42.0-52.0); Hemoglobin 7.2 g/dl (14.0-18.0); Mean Corpuscular Hemoglobin 23.1 pg (25.0-34.0); Mean Corpuscular Volume 74.4 fL (80.0-100.0); Platelet Count 112 K/uL (130-400); RDW Coefficient of Variation 22.8 % (11.5-14.5); RDW Standard Deviation 58.4 fL (36.4-46.3); Red Blood Count 3.12 M/uL (4.70-6.10); White Blood Count 2.94 K/ul (4.8-10.8)
[2024-10-25 07:56] LABS: Anisocytosis Present; Basophils # (auto) 0.01 K/uL (0.00-0.20); Basophils % (auto) 0.3 %; Eosinophils # (auto) 0.04 K/uL (0.00-0.50); Eosinophils % (auto) 1.4 %; Immature Granulocytes # (auto) 0.01 K/uL (0.01-0.20); Immature Granulocytes % (auto) 0.3 %; Lymphocytes % (auto) 30.6 %; Microcytosis Present; Monocytes # (auto) 0.14 K/uL (0.11-0.59); Monocytes % (auto) 4.8 %; Neutrophils # (auto) 1.84 K/uL (1.40-6.50); Neutrophils % (auto) 62.6 %; Ovalocytes 1+; Polychromasia 1+; Tear Drop Cells 2+
--- NOTE | 2024-10-25 08:39 | Electrocardiogram Report ---
Test Reason : Blood Pressure : */* mmHG Vent. Rate : 89 BPM Atrial Rate : 89 BPM P-R Int : 136 ms QRS Dur : 76 ms QT Int : 376 ms P-R-T Axes : 19 -3 31 degrees QTcB Int : 457 ms Poor data quality, interpretation may be adversely affected Sinus rhythm with Premature supraventricular complexes Otherwise normal ECG When compared with ECG of 24-Oct-2024 12:01, No significant change was found Confirmed by Da Stone ([id number]) on 10/25/2024 8:39:19 AM Referred By: REFERRED SELF Confirmed By: Da Stone
[2024-10-25] MEDS: HEPARIN IV BOLUS 3,000 UNITS in SYRINGE 0 ML IV ONE (08:49)
[2024-10-25] MEDS: ALPRAZolam 0.5 MG TABLET PO SCH (09:29)
[2024-10-25] MEDS: POTASSIUM CHLORIDE 10 MEQ TABCR PO SCH (09:31)
[2024-10-25] MEDS: ACETAMINOPHEN 325 MG TAB PO PRN (09:34)
[2024-10-25] MEDS: oxyCODONE HCL IR 5 MG TAB (IMMEDIATE RELEASE) PO PRN (13:09)
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
[2024-10-25 15:17] LABS: ANTI-Xa, UFH(UnfractionatedHep 0.29 IU/ml (0.3-0.7)
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
[2024-10-25 16:50] LABS: D Dimer 1970 ug/L FEU (0-500)
[2024-10-25] MEDS ORDERED: SODIUM CHLORIDE 0.9% 50 ML IV PRN (17:33)
[2024-10-25] MEDS ORDERED: SODIUM CHLORIDE 0.9% 100 ML IV PRN (17:33)
[2024-10-25 17:57] LABS: Anisocytosis Present; Basophils # (auto) 0.01 K/uL (0.00-0.20); Basophils % (auto) 0.3 %; Eosinophils # (auto) 0.06 K/uL (0.00-0.50); Hematocrit (blood only) 23.2 % (42.0-52.0); Hemoglobin 7.2 g/dl (14.0-18.0); Immature Granulocytes # (auto) 0.01 K/uL (0.01-0.20); Immature Granulocytes % (auto) 0.3 %; Lymphocytes # (auto) 0.96 K/uL (1.20-3.40); Mean Corpuscular Hemoglobin 23.3 pg (25.0-34.0); Mean Corpuscular Volume 75.1 fL (80.0-100.0); Monocytes # (auto) 0.16 K/uL (0.11-0.59); Monocytes % (auto) 5.3 %; Neutrophils % (auto) 60.1 %; Platelet Count 116 K/uL (130-400); Poikilocytosis Present; RDW Coefficient of Variation 22.7 % (11.5-14.5); RDW Standard Deviation 59.5 fL (36.4-46.3); Red Blood Count 3.09 M/uL (4.70-6.10); Tear Drop Cells 1+
[2024-10-25 18:08] LABS: Fibrinogen 601 mg/dl (184-400)
--- OUTSIDE RECORDS SUMMARY | 2024-10-25 20:25 | External Medical Summary | Summary of Care ---
Author Name Unknown Organization [facility] Address [address] [place] [address] Phone [phone] Care Team Providers Care Catering Administrative Assistant Name Role Phone Amanda BROWN MD, Buddy Britton Primary Care Provider [phone] Encounter Details Date Type Department Care Team (Late st Contact Info) Description 10/24/2024 Telephone Hematology/Oncology [facility] [place] [address] [place] [phone] Yanet Berg MD [address] [place] [id number] Allergies No known active allergiesdocumented as of this encounter (statuses as of 10/24/2024) Medications Dicyclomine HCl 10 MG Oral Capsule [...] Sprays into each nostril in the morning. [place] hand to apply. 16 g 3 4 [...] as of this encounter (statuses as of 10/24/2024) Active Problems Problem Noted Date Diagnosed Date Encounter for antineoplastic chemotherapy 2023 Metastatic colon cancer to liver 11/25/2023 Protein-calorie malnutrition 08/07/2023 Malignant neoplasm of sigmoid colon 04/22/2023 Encounter for antineoplastic chemotherapy 2022 documented as of this encounter (statuses as of 10/24/2024) Immunizations Name Administration Dates Next Due Pneumococcal [...] Telephone Encounter - Diana Bo LPN - 10/24/2024 8:[address] Otis [place] Patient and sister Miri called in. Patient complaint of worsening SOB with "difficulty breathing".Patient reports since waking up this morning he is unable to walk from his bed to the bathroom due to increase UP and "lightheadedness". Patient denies fevers or chest pain at this time. He is asking what action he should take? Per Hoda Jose RN MSN instructed patient to go the emergency room due to his complaint of worsening SOB and UP. Patient and sister verbalized understanding. Patient states he will go to the ER and also reports he started the Augmentin 875-125 mg last Thursday. Informed patient we will contact him at a later time to follow up. Patient and Sister deny and further questions at this time. documented in this encounter Plan of Treatment Upcoming Encounters Date Type Department Care Team (Late st Contact Info) Description 10/27/2024 7:40 AM EST Office Visit Family Practice [facility] [place] [address] [facility] [place] [id number] Buddy Patel III, MD [address] [facility] [place] [id number] 10/31/2024 8:30 AM EST Imaging Radiology [address], [place] [address] [facility] [address] 11/02/2024 9:00 AM EST Laboratory Laboratory [facility] [place] [address] [place] [address] [phone] [place], Lab [facility] [address] [place] [id number] 11/02/2024 9:30 AM EST Pharmacy Pharmacy Hematology Oncology [facility] [address] [place] [address] [place] Hem/Onc [address] [place] [address] 11/02/2024 9:30 AM EST Office Visit Hematology/Oncology [facility] [place] [address] [place] [address] [phone] Yanet Berg MD [address] [place] [address] 11/02/2024 10:00 AM EST Hem/Onc Treatment Hematology/Oncology Treatment, [place] [address] [place] [phone] [place], [address] 4 Hem Onc [facility] [address] [facility] [place], [place] [address] Health Maintenance Due Date Last Done Comments [...] this encounter Medical Devices Implanted Type Area Cogeneration Technician Device Identifier Shelf Expiration Date Model / Serial / Lot Port Implant W/8f Poly Cath - [id number] Implanted:Qty : 1 on 05/06/2023 by Leonardo Castro, DO at OR [facility] Right: Chest CR BARD : PERIPHERAL VASCULAR [id number] 07/16/2024 [id number] / / [id number] documented as of this encounter Care Teams Catering Administrative Assistant Relationship Specialty Start Date End Date Buddy Paetl III, MD [address] [place] [address] PCP - General Family Medicine 04/29/23 documented as of this encounter
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
[2024-10-26 06:24] LABS: Albumin Globulin Ratio 0.6 (0.9-2); Albumin Level 2.6 gm/dl (3.4-5.0); BUN Creatinine Ratio 26.8 (10-20); Bilirubin,Total 0.5 mg/dl (0.2-1.0); Calcium 8.4 mg/dl (8.6-10.3); Globulin 4.3 gm/dl (2.5-4.0); Hematocrit (blood only) 21.4 % (42.0-52.0); Hemoglobin 6.6 g/dl (14.0-18.0); Mean Corpuscular Hemoglobin 23.1 pg (25.0-34.0); Mean Corpuscular Hgb Conc 30.8 g/dL (32.0-36.0); Mean Corpuscular Volume 74.8 fL (80.0-100.0); Platelet Count 102 K/uL (130-400); RDW Coefficient of Variation 22.8 % (11.5-14.5); RDW Standard Deviation 59.5 fL (36.4-46.3); Red Blood Count 2.86 M/uL (4.70-6.10); Total Protein 6.9 gm/dl (6.0-8.3); White Blood Count 2.65 K/ul (4.8-10.8)
[2024-10-26] MEDS ORDERED: SODIUM CHLORIDE 0.9% 50 ML IV PRN (06:30)
[2024-10-26] MEDS ORDERED: SODIUM CHLORIDE 0.9% 100 ML IV PRN (06:30)
[2024-10-26 06:33] LABS: Anisocytosis Present; Eosinophils # (auto) 0.04 K/uL (0.00-0.50); Eosinophils % (auto) 1.5 %; Immature Granulocytes # (auto) 0.01 K/uL (0.01-0.20); Immature Granulocytes % (auto) 0.4 %; Lymphocytes # (auto) 0.76 K/uL (1.20-3.40); Lymphocytes % (auto) 28.7 %; Monocytes # (auto) 0.18 K/uL (0.11-0.59); Monocytes % (auto) 6.8 %; Neutrophils # (auto) 1.66 K/uL (1.40-6.50); Neutrophils % (auto) 62.6 %; Ovalocytes 1+; Polychromasia 1+; Tear Drop Cells 1+
[2024-10-26] MEDS: diphenhydrAMINE Capsule 25 MG CAP PO ONE (07:21)
[2024-10-26] MEDS: ACETAMINOPHEN 325 MG TAB PO ONE (07:21)
--- NOTE | 2024-10-26 08:20 | Electrocardiogram Report ---
Test Reason : Blood Pressure : */* mmHG Vent. Rate : 86 BPM Atrial Rate : 86 BPM P-R Int : 154 ms QRS Dur : 82 ms QT Int : 382 ms P-R-T Axes : 65 29 57 degrees QTcB Int : 457 ms Normal sinus rhythm Normal ECG When compared with ECG of 25-Oct-2024 06:07, Premature supraventricular complexes are no longer Present Nonspecific T wave abnormality no longer evident in Anterior leads Confirmed by Da Stone ([id number]) on 10/26/2024 8:19:42 AM Referred By: REFERRED SELF Confirmed By: Da Stone
[2024-10-26] MEDS: FUROSEMIDE INJ 20 MG/2 ML VIAL IV ONE (11:23)
[2024-10-26 13:16] LABS: Hematocrit (blood only) 26.1 % (42.0-52.0); Hemoglobin 8.3 g/dl (14.0-18.0)
--- NOTE | 2024-10-26 14:09 | Pulmonology Progress Note ---
Date of Service October 26, 2024 Assessment & Plan (1) SOB (shortness of breath): Plan: Multifactorial related to metastatic burden, anemia and PE. (2) Pulmonary emboli: Plan: ?tumor emboli syndrome. DIC less likely as fibrinogen level is I will defer 601. Recommendations on further anticoagulation to hematology. Acute cor pulmonale presence: unspecified Chronicity: acute Pulmonary embolism type: unspecified Qualified Code(s): I26.99 - Other pulmonary embolism without acute cor pulmonale (3) Metastatic cancer: Plan: Patient with very severe disease burden. Palliative care consult pending. I did discuss goals of care with the patient and also outside of the room I discussed patient's quality of life with patient's sister and we discussed the differences between palliative care medicine and hospice. I did indicate to her that I felt that he would be a candidate for hospice at this point in time and that should be discussed with the patient's oncologist as well. Area of secondary neoplastic involvement: unspecified site Qualified Code(s): C79.9 - Secondary malignant neoplasm of unspecified site (4) Bilateral pleural effusion: Plan: Bilateral pleural effusions possible metastatic versus related to pulmonary infarct. Continue to monitor symptoms closely. Too small for sampling at this time and too high risk given thrombocytopenia and anticoagulation status. (5) Anemia: Plan: Patient is status post 1 unit packed RBCs today. Anemia likely secondary to effects of cytotoxic chemotherapy. (6) Thrombocytopenia: (7) Goals of care, counseling/discussion: Plan Thank you for the consult. Will sign off at this time. Please call questions. Admission and Anticipated Discharge Date Admission Date: October 24, 2024 Subjective Patient subjectively is about the same as yesterday. Still has significant shortness of breath with minimal exertion. Occasional cough. No fevers or chills. No hematochezia or hematemesis. No chest pain. Patient's sister is at bedside. Review of Systems Review of Systems: All systems reviewed & are unremarkable except as noted in HPI & below Physical Exam Physical Exam: Constitutional: Chronically ill-appearing male who is pale and mildly tachypneic. Eyes: Pupils are equal round and reactive to light. Conjunctivae are normal. Anicteric sclera. Ears nose, mouth and throat: Patient wearing mask. Neck: Trachea is midline. Visual inspection is normal. Respiratory: Diffuse mild rhonchi. Mild tachypnea. Cardiovascular: Regular rate and rhythm. No murmurs. No edema. Gastrointestinal: Normal bowel sounds, soft, nontender and nondistended. No hepatosplenomegaly noted. Musculoskeletal: No cyanosis. Patient is able to move all extremities. Strength is 5 out of 5 in the upper and lower extremities. Skin: No rashes, warm dry and intact. Neurologic: No obvious focal neurological deficits seen. Psychiatric: Alert and oriented x3 with a euthymic affect. Results & Data Results & Data Vital Signs (Past 12 Hours) Vital Signs Temp Pulse Pulse Resp BP BP Pulse Ox 10/26/24 10:48 36.6 C 79 18 104/71 97 10/26/24 09:48 36.7 C 78 18 103/71 98 10/26/24 08:59 80 10/26/24 08:48 36.8 C 95 H 18 110/74 98 10/26/24 08:18 36.7 C 87 18 115/72 98 10/26/24 08:03 36.7 C 87 18 110/76 99 10/26/24 07:43 36.6 C 90 18 111/77 99 10/26/24 03:33 36.6 C 82 17 108/73 98 O2 Del Method O2 Flow Rate 10/26/24 10:48 2 10/26/24 09:48 2 10/26/24 08:59 10/26/24 08:48 2 10/26/24 08:18 2 10/26/24 08:03 2 10/26/24 07:43 2 10/26/24 03:33 Nasal Cannula 2 PG Care Time/CCT Total # of Minutes Spent Total Time Spent with Patient: Total time spent is greater than 50% in coordination of care (as documented) at patient's floor/unit and/or counseling patient: Coding Level of Care Code 77095 SUB INP/OBS CARE 2/35MIN Diagnoses SOB (shortness of breath) R06.02 Pulmonary emboli I26.99 Acute cor pulmonale presence: unspecified Chronicity: acute Pulmonary embolism type: unspecified Metastatic cancer C79.9 Area of secondary neoplastic involvement: unspecified site Bilateral pleural effusion J90 Anemia D64.9 Thrombocytopenia D69.6 Goals of care, counseling/discussion Z71.89
--- NOTE | 2024-10-26 17:05 | Hospitalist Progress Note ---
Date of Service October 26, 2024 Assessment & Plan (1) Acute hypoxic respiratory failure: (2) Pulmonary emboli: (3) Pneumonia: (4) Acute on chronic anemia: (5) Colon cancer metastasized to multiple sites: (6) Pancytopenia: (7) Hyponatremia: Plan 59-year-old male with PMH of colon cancer [under treatment with chemo, Dr. 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 Patient reports that he underwent chest imaging and was started on antibiotic in the line of pneumonia, received 5 days of Augmentin prior to arrival, did not notice any improvement in his shortness of breath or cough, his shortness of breath and cough were progressively worsening, reported bwhitish sputum with cough, reports occasional fever/did not measure. Patient d enied sore throat. Patient reports feeling weaker since last few weeks with decreased mobility for the same duration. He is being managed for the following: Concern for PE: Admitting CTA chest with concern of bilateral PE with evidence of right heart strain, troponin was normal. echo with EF of 65 to 70%, right ventricle normal in size and function. Patient was evaluated by pulmonology, concern for DIC versus tumor emboli syndrome. DIC ruled out/fibrinogen level high. Heparin drip on hold, awaiting hematology evaluation for need for anticoagulation. Patient maintaining saturation at 2 L oxygen via nasal cannula. Pancytopenia: Likely secondary to ongoing chemotherapy iso metastatic disease. Hemoglobin dropped below 7 today, received 1 unit PRBC 10/26. Follow-up hemoglobin above 8. Concern for pneumonia: Patient was being treated in the line of pneumonia as an outpatient, came in with productive cough and weakness. Patient was started on cefepime at admission 10/24, reports improving cough, will continue antibiotic to complete the course. Admitting Bl Cx NG 48H. Hyponatremia: Likely secondary to poor p.o. intake prior to arrival, improving. Encourage protein intake in diet. Metastatic Colon Cancer: Patient with metastatic colon cancer which was diagnosed last April. Colonoscopy done at the time revealed malignant appearing, intrinsic severe stenosis in the sigmoid colon and was non-traversed. This was subsequently stented. Biopsy from the mass was consistent with well-differentiated infiltrative adenocarcinoma. He had a repeat CTAP in April of 2024 that unfortunately revealed possible/likely metastases to the following regions: left supraclavicular lymph node, 2 right hilar lymph nodes, small sub-carinal lymph node, multiple small pulmonary nodules bilaterally, left hepatic lobe, multiple retroperitoneal lymph nodes. Patient is currently on the following chemotherapy regimen: bevacizumab (Avastin injection every 2 weeks) and oral Trifluridine/Tipiracil (Lonsurf - started on 08/15/2024). Patient follows with Dr. Berg at [facility] - Reports having discussion with Dr. Berg about his prognosis and is aware of his poor prognosis. Palliative care consult. Hold chemotherapy medications while admitted for acute conditions as per above. Neutropenic precautions on board, pancytopenia noted on admitting labs as per above. Continue PRN home narcotics for chronic cancer-related pain/chronic back pain. DVT Prophylaxis: SCDs due to anemia requiring blood transfusion Unless anticoagulation directed otherwise by hematology. Code Status: DNR/DNI PCP: Buddy Patel MD Disposition: Admit to PCU/Telemetry Admission and Anticipated Discharge Date Admission Date: October 24, 2024 Subjective Patient was seen and examined at bedside. Patient was lying in bed, on 2 L oxygen via nasal cannula, NAD, resting comfortably. Patient reports decreasing cough, reports scant whitish sputum, reports improving strength/mobility. Patient is aware of his poor prognosis and is open to palliative care discussion. Palliative consult has been placed. Patient reports eating okay and moving bowels okay, denies pain or burning with passing urine. Physical Exam Physical Exam: GENERAL: Alert and oriented x3. NAD, on 2L NC O2. Appears sick/pale/frail/weak. HEENT: + pallor, no icterus. Pupils equal, round and reactive to light. Oral mucosa moist. no oral thrush noted. NECK: No JVD, no neck masses. HEART: S1 and S2 heard. Regular rate and rhythm. HR in 80s. No murmur, no gallop. RESPIRATORY SYSTEM: Normal AP diameter. No accessory muscle use. No wheezing, R > L crackles. ABDOMEN: Soft, bowel sounds present, nontender, no distention. CENTRAL NERVOUS SYSTEM: No facial droop. Speech is clear. Obeys simple commands. Moves extremities. EXTREMITIES: No edema, no erythema seen. nontender b/l calf. Results & Data Results & Data Vital Signs (Past 12 Hours) Vital Signs Temp Pulse Pulse Resp BP BP Pulse Ox 10/26/24 16:41 36.9 C 93 H 16 110/73 96 10/26/24 14:51 78 10/26/24 10:48 36.6 C 79 18 104/71 97 10/26/24 09:48 36.7 C 78 18 103/71 98 10/26/24 08:59 80 10/26/24 08:48 36.8 C 95 H 18 110/74 98 10/26/24 08:18 36.7 C 87 18 115/72 98 10/26/24 08:03 36.7 C 87 18 110/76 99 10/26/24 07:43 36.6 C 90 18 111/77 99 O2 Del Method O2 Flow Rate 10/26/24 16:41 Nasal Cannula 2.0 10/26/24 14:51 10/26/24 10:48 2 10/26/24 09:48 2 10/26/24 08:59 10/26/24 08:48 2 10/26/24 08:18 2 10/26/24 08:03 2 10/26/24 07:43 2 (2) Pulmonary emboli Pulmonary embolism type: unspecified Chronicity: acute Acute cor pulmonale presence: unspecified Qualified Code(s): I26.99 - Other pulmonary embolism without acute cor pulmonale (3) Pneumonia Pneumonia type: due to unspecified organism Laterality: unspecified laterality Lung location: unspecified part of lung Qualified Code(s): J18.9 - Pneumonia, unspecified organism
[2024-10-27 06:58] LABS: Hematocrit (blood only) 24.6 % (42.0-52.0); Hemoglobin 7.7 g/dl (14.0-18.0); Mean Corpuscular Hemoglobin 23.8 pg (25.0-34.0); Mean Corpuscular Hgb Conc 31.3 g/dL (32.0-36.0); Mean Corpuscular Volume 76.2 fL (80.0-100.0); Platelet Count 91 K/uL (130-400); RDW Standard Deviation 56.2 fL (36.4-46.3); Red Blood Count 3.23 M/uL (4.70-6.10)
[2024-10-27 07:01] LABS: BUN Creatinine Ratio 30.6 (10-20); Calcium 8.4 mg/dl (8.6-10.3); Creatinine Clr Calc Pharmacy 153.2 ml/min; Magnesium 1.8 mg/dl (1.7-2.4); Phosphorus 2.8 mg/dl (2.5-4.9); Potassium 4.3 mmol/L (3.5-5.1)
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
[2024-10-27 14:31] LABS: Hematocrit (blood only) 25.3 % (42.0-52.0)
--- NOTE | 2024-10-27 14:42 | Hospitalist Progress Note ---
Date of Service October 27, 2024 Assessment & Plan (1) Acute hypoxic respiratory failure: (2) Pulmonary emboli: (3) Pneumonia: (4) Acute on chronic anemia: (5) Colon cancer metastasized to multiple sites: (6) Pancytopenia: (7) Hyponatremia: Plan 59-year-old male with PMH of colon cancer [under treatment with chemo, Dr. Berg], metastatic cancer, HTN, HLD, protein calorie malnutrition, chronic back pain presented to the ED with complaint of worsening shortness of breath since last 3 weeks [employer]. Patient reports that he underwent chest imaging and was started on antibiotic in the line of pneumonia, received 5 days of Augmentin prior to arrival, did not notice any improvement in his shortness of breath or cough, his shortness of breath and cough were progressively worsening, reported bwhitish sputum with cough, reports occasional fever/did not measure. Patient d enied sore throat. Patient reports feeling weaker since last few weeks with decreased mobility for the same duration. He is being managed for the following: Concern for PE: Admitting CTA chest with concern of bilateral PE with evidence of right heart strain, troponin was normal. echo with EF of 65 to 70%, right ventricle normal in size and function. Patient was evaluated by pulmonology, concern for DIC versus tumor emboli syndrome. DIC ruled out/fibrinogen level high. Heparin drip was put on hold, Hematology evaluated, recommends initiating anticoagulation. Heparin drip initiated 10/27, closely monitor H&H and platelets. Patient maintaining saturation at 2 L oxygen via nasal cannula. Pancytopenia: Likely secondary to ongoing chemotherapy iso metastatic disease. Hemoglobin dropped below 7 10/26, received 1 unit PRBC 10/26. HnH stable currently. Concern for pneumonia: Patient was being treated in the line of pneumonia as an outpatient, came in with productive cough and weakness. Patient was started on cefepime at admission 10/24, reports improving cough, will continue antibiotic to complete the course. Admitting Bl Cx NG 48H. Hyponatremia: Likely secondary to poor p.o. intake prior to arrival, improving. Encourage protein intake in diet. Metastatic Colon Cancer: Patient with metastatic colon cancer which was diagnosed last April. Colonoscopy done at the time revealed malignant appearing, intrinsic severe stenosis in the sigmoid colon and was non-traversed. This was subsequently stented. Biopsy from the mass was consistent with well-differentiated infiltrative adenocarcinoma. He had a repeat CTAP in April of 2024 that unfortunately revealed possible/likely metastases to the following regions: left supraclavicular lymph node, 2 right hilar lymph nodes, small sub-carinal lymph node, multiple small pulmonary nodules bilaterally, left hepatic lobe, multiple retroperitoneal lymph nodes. Patient is currently on the following chemotherapy regimen: bevacizumab (Avastin injection every 2 weeks) and oral Trifluridine/Tipiracil (Lonsurf - started on 08/15/2024). Patient follows with Dr. Berg at [facility] - Reports having discussion with Dr. Berg about his prognosis and is aware of his poor prognosis. Palliative care consult. Hold chemotherapy medications while admitted for acute conditions as per above. Neutropenic precautions on board, pancytopenia noted on admitting labs as per above. Continue PRN home narcotics for chronic cancer-related pain/chronic back pain. DVT Prophylaxis: Hep drip Code Status: DNR/DNI PCP: Buddy Patel MD Disposition: Admit to PCU/Telemetry Admission and Anticipated Discharge Date Admission Date: October 24, 2024 Subjective Patient was seen and examined at bedside. Patient was lying in bed, on 2 L oxygen via nasal cannula, NAD, resting comfortably. Patient's sister at bedside who was also updated on plan of care. Patient reports he was feeling much better yesterday with reduced cough and better strength, reports feeling little more tired today and has increased cough today. Hematology has evaluated the patient, recommends anticoagulation, heparin drip has been started. Will monitor CBC and H&H closely. Patient reports eating okay and moving bowels okay. Physical Exam Physical Exam: GENERAL: Alert and oriented x3. NAD, on 2L NC O2. Appears sick/pale/frail/weak. HEENT: + pallor, no icterus. Pupils equal, round and reactive to light. Oral mucosa moist. no oral thrush noted. NECK: No JVD, no neck masses. HEART: S1 and S2 heard. Regular rate and rhythm. HR in 80s. No murmur, no gallop. RESPIRATORY SYSTEM: Normal AP diameter. No accessory muscle use. No wheezing, R > L crackles. ABDOMEN: Soft, bowel sounds present, nontender, no distention. CENTRAL NERVOUS SYSTEM: No facial droop. Speech is clear. Obeys simple commands. Moves extremities. EXTREMITIES: No edema, no erythema seen. nontender b/l calf. Results & Data Results & Data Vital Signs (Past 12 Hours) Vital Signs Temp Pulse Resp BP Pulse Ox O2 Del Method O2 Flow Rate 10/27/24 12:51 97 10/27/24 12:16 Nasal Cannula 1 10/27/24 11:44 36.7 C 79 19 104/67 91 Nasal Cannula 1.0 10/27/24 11:34 Nasal Cannula 2 10/27/24 07:28 36.8 C 76 16 111/71 99 Nasal Cannula 2.0 (2) Pulmonary emboli Pulmonary embolism type: unspecified Chronicity: acute Acute cor pulmonale presence: unspecified Qualified Code(s): I26.99 - Other pulmonary embolism without acute cor pulmonale (3) Pneumonia Pneumonia type: due to unspecified organism Laterality: unspecified laterality Lung location: unspecified part of lung Qualified Code(s): J18.9 - Pneumonia, unspecified organism
[2024-10-27 16:51] LABS: ANTI-Xa, UFH(UnfractionatedHep 0.19 IU/ml (0.3-0.7)
[2024-10-27] MEDS: HEPARIN SOD (PORCINE) 1000 UNIT/ML IV ONE (18:15)
[2024-10-27] MEDS: ALPRAZolam 0.5 MG TABLET PO SCH (22:18)
[2024-10-28 08:12] LABS: Hematocrit (blood only) 25.1 % (42.0-52.0); Hemoglobin 7.9 g/dl (14.0-18.0); Mean Corpuscular Hemoglobin 24.1 pg (25.0-34.0); Mean Corpuscular Hgb Conc 31.5 g/dL (32.0-36.0); Mean Corpuscular Volume 76.5 fL (80.0-100.0); Platelet Count 91 K/uL (130-400); RDW Coefficient of Variation 22.9 % (11.5-14.5); RDW Standard Deviation 59.2 fL (36.4-46.3); Red Blood Count 3.28 M/uL (4.70-6.10); White Blood Count 1.97 K/ul (4.8-10.8)
[2024-10-28 08:51] LABS: BUN Creatinine Ratio 23.4 (10-20); Calcium 8.6 mg/dl (8.6-10.3); Creatinine Clr Calc Pharmacy 159.7 ml/min; Magnesium 1.9 mg/dl (1.7-2.4); Phosphorus 3.2 mg/dl (2.5-4.9)
--- NOTE | 2024-10-28 11:20 | Palliative Family Discussion ---
Date of Service October 28, 2024 Patient Directed Conference Time of Meetin:00 - 10:00 Participants: Promise Hale AGACNP Patient participation: YES Patient Support System: 5 of pt's six siblings, Miri and Devin in person with sisters Sera and Ana and DIANA Goodwin via phone Other Healthcare Provider Participation: None Meeting Location: bedside Advanced Directive available: No If yes, descriptors: The patient's surrogate medical decision maker participated: yes Legally authorized health care proxy: Pt does not require a proxy for medical decisions. Patient has exhibited he does currently possesses decisional capacity based on the ability to convey understanding of personal PMHx, current medical condition, treatment options and the risks / benefits of those options, as well as the ability to make decisions based on such knowledge. Hospital does not have written documentation of patient wishes concerning his chosen proxy for medical decisions. Per [id number], in absence of written documentation of patient wishes, pt's proxy for medical decisions would be his six adult siblings with equal decisional power.. Pt has verbalized desire for us to utilize his sister Miri as primary proxy for medical decisions in the event he lacks decisional capacity. A family meeting was held for [facility]O [facility] . This meeting was necessary for determining the appropriate course of treatment. Topics of Discussion Topics of Discussion: 1. patient goals and values 2. introduction to palliative care 3. Hospice 4. Anticipatory guidance Other Content of Meetin. Opportunity given for participants to speak and ask questions. 2. Participants were assured of attention to patient comfort. 3. Reassurance provided. 4. Support was provided for informed, good-benjie decisions. 5. Emotions expressed by family were acknowledged and addressed. 6. Follow-up Outpatient: n/a 7. Plan of Care: Patient wishes to continue current level of care until he has been medically cleared for discharge with plan to return home and enroll in Hospice care at home. In Summary: Met with patient for schedule GOC discussion at bedside. Present for meeting were family members as listed above. Introduced Palliative Care services and benefits of utilizing palliative care during life-limiting disease, to assist with symptom management and navigation while patient continues to pursue life prolonging therapies. Miri shared that she had been discussing future options with [facility] and they are considering taking pt back home with hospice but want to discuss other options. Patient shared that cancer directed treatments are no longer available to him and he only felt they were making him weaker and sicker anyway. I helped family to differentiate between Palliative care services and Hospice care. Helped family understand that hospice care is a service that helps to maximize quality of life and comfort, while minimizing symptom burden and allowing for a natural . Explalined that comfort directed care/hospice care is adopted when life pronging treatments are either no longer being offered or no longer desired by pt. Helped pt understand his options of continuing the current course of treatment with ongoing life prolonging treatments and frequent hospitalizations as his disease progresses vs comfort directed approach wit discharge home with hospice care. Explained to family that although with comfort care no life prolonging treatments are offered, nothing would be done that would hasten . Pt expressed concern that if he goes home with hospice he would not be allowed to get up and do the things he wants to do. Helped him understand that there would be no restrictions on his activities aside from those imposed by the progression of his disease and encouraged that he continue to do the things he enjoys as long as he is physically able. He shared that he wants to have some time to "go out and do things" as well as to get his affairs in order. Discussed prognostication with pt/family and helped them understand that timing can be difficult given the unpredictable nature of cancer progression, but the pt likely has weeks to months. Pt shared that his oncologist had recently told him he "has less that six months and said I should focus on preparing to ". Discussed changes pt may move through in the dying process including but not limited to sleeping more, disorientation when awake, restlessness, diminished senses/inability to respond to stimulus although ability to be aware of them remains intact longer, and changes in body temperatures, skin changes/mottling/cyanosis, respiratory pattern changes, and oral secretions. Family verbalized understanding. The goal with hospice care is to assure a peaceful . Pt shared that he would like to continue through with the current course of treatment until he is optimized for discharge and then go back home to discuss enrolling with hospice team. Miri shared that she will be moving in to the pt's home to assist him as needed. She is employed as a [employer]PER[employer] and stated that she feels very comfortable offering him the care he might need so that he might spend the rest of his time at home. We discussed the importance of a living will/advanced directive and choosing a proxy that is understanding of pt's goals and values and will carry forward pt wishes in the event he does not possess decisional capacity. Pt stated that he would like to establish a LW/AD. He verbalized desire for us to utilize his sister Miri as primary proxy for medical decisions in the event he lacks decisional capacity. Paperwork provided for pt to review. Patient and family request some time to discuss as family, but pt gain shared that he would not want to return to hospital and "home with hospice care sounds like his best option". All questions encouraged and answered to the best of my ability. Contact information offered for Palliative Care team and encouraged family to call with any additional concerns. I did Introduce the concept of POLST form, but not completed as pt is not yet pursuing ALTERATIONS TAILOR. ALTERATIONS TAILOR POLST should be competed prior to discharge if going home with hospice. Time Involved in Meeting: I spent 90 minutes overall addressing this case: 10 in medical data review/discussion with referring provider(s) and/or preparation for the visit 60 in direct interaction with the patient [] 60 Advance Care Planning/Goals of Care discussions as detailed above in note (must be >16min) 10 in subsequent review and synthesis of assessment and plan 10 in communicating with other providers regarding the patient's case, discussed with Dr Holder (attending), BSRN, and CM
--- NOTE | 2024-10-28 15:35 | Hospitalist Progress Note ---
Date of Service October 28, 2024 Assessment & Plan (1) Acute hypoxic respiratory failure: (2) Pulmonary emboli: (3) Pneumonia: (4) Acute on chronic anemia: (5) Colon cancer metastasized to multiple sites: (6) Pancytopenia: (7) Hyponatremia: Plan 59-year-old male with PMH of colon cancer [under treatment with chemo, Dr. Berg], metastatic cancer, HTN, HLD, protein calorie malnutrition, chronic back pain presented to the ED with complaint of worsening shortness of breath since last 3 weeks [employer]. Patient reports that he underwent chest imaging and was started on antibiotic in the line of pneumonia, received 5 days of Augmentin prior to arrival, did not notice any improvement in his shortness of breath or cough, his shortness of breath and cough were progressively worsening, reported bwhitish sputum with cough, reports occasional fever/did not measure. Patient d enied sore throat. Patient reports feeling weaker since last few weeks with decreased mobility for the same duration. He is being managed for the following: Concern for PE: Admitting CTA chest with concern of bilateral PE with evidence of right heart strain, troponin was normal. echo with EF of 65 to 70%, right ventricle normal in size and function. Patient was evaluated by pulmonology, concern for DIC versus tumor emboli syndrome. DIC ruled out/fibrinogen level high. Heparin drip was put on hold, Hematology evaluated, recommends initiating anticoagulation. Heparin drip initiated 10/27, closely monitor H&H and platelets. If H&H is stable by tomorrow morning, transition to Eliquis. Patient weaned down to room air, likely will need two-step test prior to d ischarge. Pancytopenia: Likely secondary to ongoing chemotherapy iso metastatic disease. Hemoglobin dropped below 7 on 10/26, received 1 unit PRBC 10/26. HnH stable currently. Concern for pneumonia: Patient was being treated in the line of pneumonia as an outpatient, came in with productive cough and weakness. Patient was started on cefepime at admission 10/24, reports improving cough, will continue antibiotic to complete the course. Admitting Bl Cx NG 48H. Hyponatremia: Likely secondary to poor p.o. intake prior to arrival, improving. Encourage protein intake in diet. Metastatic Colon Cancer: Patient with metastatic colon cancer which was diagnosed last April. Colonoscopy done at the time revealed malignant appearing, intrinsic severe stenosis in the sigmoid colon and was non-traversed. This was subsequently stented. Biopsy from the mass was consistent with well-differentiated infiltrative adenocarcinoma. He had a repeat CTAP in April of 2024 that unfortunately revealed possible/likely metastases to the following regions: left supraclavicular lymph node, 2 right hilar lymph nodes, small sub-carinal lymph node, multiple small pulmonary nodules bilaterally, left hepatic lobe, multiple retroperitoneal lymph nodes. Patient is currently on the following chemotherapy regimen: bevacizumab (Avastin injection every 2 weeks) and oral Trifluridine/Tipiracil (Lonsurf - started on 08/15/2024). Patient follows with Dr. Berg at [facility] - Reports having discussion with Dr. Berg about his prognosis and is aware of his poor prognosis. Palliative care consult. Hold chemotherapy medications while admitted for acute conditions as per above. Neutropenic precautions on board, pancytopenia noted on admitting labs as per above. Continue PRN home narcotics for chronic cancer-related pain/chronic back pain. DVT Prophylaxis: Hep drip Code Status: DNR/DNI PCP: Buddy Patel MD Disposition: Admit to PCU/Telemetry, If H&H is stable by tomorrow morning, start him on Eliquis. Admission and Anticipated Discharge Date Admission Date: October 24, 2024 Subjective Patient was seen and examined at bedside. Patient was lying in bed, on RA, NAD, resting comfortably. Patient's sister at bedside who was also updated on plan of care. They want to go when medically stable and would like to go home on hospice. They would like to complete treatment for possible pneumonia and would like to continue treatment for blood clot if medically feasible. Patient with decreasing cough today, reports feeling better, reports eating okay and moving bowels okay. Physical Exam Physical Exam: GENERAL: Alert and oriented x3. NAD, on Room air. HEENT: + pallor, no icterus. Pupils equal, round and reactive to light. Oral mucosa moist. no oral thrush noted. NECK: No JVD, no neck masses. HEART: S1 and S2 heard. Regular rate and rhythm. HR in 80s. No murmur, no gallop. RESPIRATORY SYSTEM: Normal AP diameter. No accessory muscle use. No wheezing, bilateral lung crackles has improved. ABDOMEN: Soft, bowel sounds present, nontender, no distention. CENTRAL NERVOUS SYSTEM: No facial droop. Speech is clear. Obeys simple commands. Moves extremities. EXTREMITIES: No edema, no erythema seen. nontender b/l calf. Results & Data Results & Data Vital Signs (Past 12 Hours) Vital Signs Temp Pulse Pulse Resp BP Pulse Ox O2 Del Method 10/28/24 14:17 97 H 10/28/24 11:06 36.4 C L 107 H 19 121/75 90 Room Air 10/28/24 09:00 79 10/28/24 09:00 Nasal Cannula 10/28/24 07:31 36.5 C 82 20 101/64 97 Nasal Cannula O2 Flow Rate 10/28/24 14:17 10/28/24 11:06 10/28/24 09:00 10/28/24 09:00 1 10/28/24 07:31 1 (2) Pulmonary emboli Pulmonary embolism type: unspecified Chronicity: acute Acute cor pulmonale presence: unspecified Qualified Code(s): I26.99 - Other pulmonary embolism without acute cor pulmonale (3) Pneumonia Pneumonia type: due to unspecified organism Laterality: unspecified laterality Lung location: unspecified part of lung Qualified Code(s): J18.9 - Pneumonia, unspecified organism
[2024-10-28] MEDS: oxyCODONE HCL IR 5 MG TAB (IMMEDIATE RELEASE) PO PRN (21:35)
[2024-10-28] MEDS: KETOROLAC TROMETHAMINE 15 MG/ML VIAL IV ONE (22:52)
[2024-10-29 07:13] LABS: Hematocrit (blood only) 28.6 % (42.0-52.0); Hemoglobin 8.9 g/dl (14.0-18.0); Mean Corpuscular Hgb Conc 31.1 g/dL (32.0-36.0); Mean Corpuscular Volume 77.1 fL (80.0-100.0); Platelet Count 116 K/uL (130-400); RDW Coefficient of Variation 23.9 % (11.5-14.5); RDW Standard Deviation 61.1 fL (36.4-46.3); Red Blood Count 3.71 M/uL (4.70-6.10)
[2024-10-29 07:41] LABS: BUN Creatinine Ratio 23.1 (10-20); Calcium 8.8 mg/dl (8.6-10.3); Creatinine Clr Calc Pharmacy 144.3 ml/min
[2024-10-29] MEDS: HYDROCODONE/ACETAMINOPHEN 7.5/325MG TAB PO PRN (08:37)
[2024-10-29] MEDS: APIXABAN 5 MG TABLET PO SCH (10:32)
--- NOTE | 2024-10-29 14:18 | Hospitalist Progress Note ---
Date of Service October 29, 2024 Assessment & Plan (1) Acute hypoxic respiratory failure: (2) Pulmonary emboli: (3) Pneumonia: (4) Acute on chronic anemia: (5) Colon cancer metastasized to multiple sites: (6) Pancytopenia: (7) Hyponatremia: Plan 59-year-old male with PMH of colon cancer [under treatment with chemo, Dr. Berg], metastatic cancer, HTN, HLD, protein calorie malnutrition, chronic back pain presented to the ED with complaint of worsening shortness of breath since last 3 weeks [employer]OB [employer]. Patient reports that he underwent chest imaging and was started on antibiotic in the line of pneumonia, received 5 days of Augmentin prior to arrival, did not notice any improvement in his shortness of breath or cough, his shortness of breath and cough were progressively worsening, reported bwhitish sputum with cough, reports occasional fever/did not measure. Patient d enied sore throat. Patient reports feeling weaker since last few weeks with decreased mobility for the same duration. He is being managed for the following: Concern for PE: Admitting CTA chest with concern of bilateral PE with evidence of right heart strain, troponin was normal. echo with EF of 65 to 70%, right ventricle normal in size and function. Patient was evaluated by pulmonology, concern for DIC versus tumor emboli syndrome. DIC ruled out/fibrinogen level high. Heparin drip was put on hold, Hematology evaluated, recommends initiating anticoagulation. Heparin drip initiated 10/27, [facility] been [facility] Patient needing 1 to 2 L oxygen occasionally, likely will need two-step test prior to discharge. Pancytopenia: Likely secondary to ongoing chemotherapy iso metastatic disease. Hemoglobin dropped below 7 on 10/26, received 1 unit PRBC 10/26. HnH stable currently. Concern for pneumonia: Patient was being treated in the line of pneumonia as an outpatient, came in with productive cough and weakness. Patient was started on cefepime at admission 10/24, reports improving cough, will continue antibiotic to complete the course. Admitting Bl Cx NG 48H. Hyponatremia: Likely secondary to poor p.o. intake prior to arrival, improving. Encourage protein intake in diet. Metastatic Colon Cancer: Patient with metastatic colon cancer which was diagnosed last April. Colonoscopy done at the time revealed malignant appearing, intrinsic severe stenosis in the sigmoid colon and was non-traversed. This was subsequently stented. Biopsy from the mass was consistent with well-differentiated infiltrative adenocarcinoma. He had a repeat CTAP in April of 2024 that unfortunately revealed possible/likely metastases to the following regions: left supraclavicular lymph node, 2 right hilar lymph nodes, small sub-carinal lymph node, multiple small pulmonary nodules bilaterally, left hepatic lobe, multiple retroperitoneal lymph nodes. Patient is currently on the following chemotherapy regimen: bevacizumab (Avastin injection every 2 weeks) and oral Trifluridine/Tipiracil (Lonsurf - started on 08/15/2024). Patient follows with Dr. Berg at [facility] - Reports having discussion with Dr. Berg about his prognosis and is aware of his poor prognosis. Palliative care consult. Hold chemotherapy medications while admitted for acute conditions as per above. Neutropenic precautions on board, pancytopenia noted on admitting labs as per above. Continue PRN home narcotics for chronic cancer-related pain/chronic back pain. DVT Prophylaxis: Hep drip Code Status: DNR/DNI PCP: Buddy Patel MD Disposition: patient medically stable for DC to home with hospice. To [facility] until this happens. Admission and Anticipated Discharge Date Admission Date: October 24, 2024 Subjective Patient was seen and examined at bedside. Patient was lying in bed, on 1L NC O2, NAD, resting comfortably. Pt feels tired today as not able to sleep well overnight, would like to be discharged price. Patient reports improved cough and breathing. Patient reports eating okay and moving bowels okay. Physical Exam Physical Exam: GENERAL: Alert and oriented x3. NAD, on Room air. HEENT: + pallor, no icterus. Pupils equal, round and reactive to light. Oral mucosa moist. no oral thrush noted. NECK: No JVD, no neck masses. HEART: S1 and S2 heard. Regular rate and rhythm. HR in 80s. No murmur, no gallop. RESPIRATORY SYSTEM: Normal AP diameter. No accessory muscle use. No wheezing, bilateral lung crackles has improved. ABDOMEN: Soft, bowel sounds present, nontender, no distention. CENTRAL NERVOUS SYSTEM: No facial droop. Speech is clear. Obeys simple commands. Moves extremities. EXTREMITIES: No edema, no erythema seen. nontender b/l calf. Results & Data Results & Data Vital Signs (Past 12 Hours) Vital Signs Temp Pulse Pulse Resp BP Pulse Ox O2 Del Method 10/29/24 11:00 36.8 C 78 18 106/69 92 Room Air 10/29/24 09:00 87 10/29/24 09:00 Nasal Cannula 10/29/24 07:00 36.7 C 94 H 19 108/73 93 Room Air 10/29/24 03:42 36.6 C 88 18 123/78 90 Nasal Cannula O2 Flow Rate 10/29/24 11:00 10/29/24 09:00 10/29/24 09:00 1 10/29/24 07:00 10/29/24 03:42 1 (2) Pulmonary emboli Pulmonary embolism type: unspecified Chronicity: acute Acute cor pulmonale presence: unspecified Qualified Code(s): I26.99 - Other pulmonary embolism without acute cor pulmonale (3) Pneumonia Pneumonia type: due to unspecified organism Laterality: unspecified laterality Lung location: unspecified part of lung Qualified Code(s): J18.9 - Pneumonia, unspecified organism
[2024-10-30] MEDS: HEPARIN 100 UNIT/ML 5ML FLUSH FLUSH PRN (05:30)
[2024-10-30 06:23] LABS: Hematocrit (blood only) 28.3 % (42.0-52.0); Hemoglobin 8.6 g/dl (14.0-18.0); Mean Corpuscular Hemoglobin 23.6 pg (25.0-34.0); Mean Corpuscular Hgb Conc 30.4 g/dL (32.0-36.0); Mean Corpuscular Volume 77.7 fL (80.0-100.0); Platelet Count 117 K/uL (130-400); RDW Coefficient of Variation 23.8 % (11.5-14.5); RDW Standard Deviation 63.9 fL (36.4-46.3); Red Blood Count 3.64 M/uL (4.70-6.10); White Blood Count 2.06 K/ul (4.8-10.8)
[2024-10-30 07:05] VITALS: BP 103/68; PULSE 96; RESP 15; TEMP 98.2; O2SAT 94
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
[2024-11-05] MEDS ORDERED: APIXABAN 5 MG TABLET PO SCH (09:00)
== END 2024-10-30 13:22 | disposition hospice, home (50) | DRG 175 ==
LOC: ED 11:34 → SUATTDRO 15:47 → 2S 15:47 → 3E 10-29 14:31
DX: C78.02 Secondary malignant neoplasm of left lung; C77.3 Secondary and unspecified malignant neoplasm of axilla and upper limb lymph nodes; I10 Essential (primary) hypertension; F41.9 Anxiety disorder, unspecified; J90 Pleural effusion, not elsewhere classified; I26.09 Other pulmonary embolism with acute cor pulmonale; E46 Unspecified protein-calorie malnutrition; Z95.820 Peripheral vascular angioplasty status with implants and grafts; D61.811 Other drug-induced pancytopenia; E78.5 Hyperlipidemia, unspecified; G89.3 Neoplasm related pain (acute) (chronic); C77.2 Secondary and unspecified malignant neoplasm of intra-abdominal lymph nodes; C78.01 Secondary malignant neoplasm of right lung; J18.9 Pneumonia, unspecified organism; M54.9 Dorsalgia, unspecified; Z82.49 Family history of ischemic heart disease and other diseases of the circulatory system; J96.01 Acute respiratory failure with hypoxia; Z79.2 Long term (current) use of antibiotics; T45.1X5A Adverse effect of antineoplastic and immunosuppressive drugs, initial encounter; G89.29 Other chronic pain; E87.1 Hypo-osmolality and hyponatremia; C79.71 Secondary malignant neoplasm of right adrenal gland; C18.9 Malignant neoplasm of colon, unspecified; C78.7 Secondary malignant neoplasm of liver and intrahepatic bile duct; Z79.899 Other long term (current) drug therapy